=== PATIENT | female | born 1980 | race African-American/Black ===

== ENCOUNTER 2023-05-06 10:02 | Outpatient (OUT) | payer MEDICARE, MEDICAID, SELFPAY ==
--- NOTE | 2023-05-06 10:42 | P.CN_ITS ---
Consult Note: HPI Data of Consult Patient: known to practice within the last 3 years Consult date: 05/06/23 Requesting Physician: KATELYNN DALE NP Primary Care Provider: [facility] Consult Narrative Reason for consult: ankle pain Narrative: She is here for f/u of chronic left ankle pain. She has had lumbar nerve blocks in the past with no relief she states. No new injury to ankle. She has a prior hx of fusion with wounds that did not heal well. She has surgical scarring of left ankle with no open karolina or drainage. Pain unchanged and is managed well on current medication regimen with no SE. Medications help her to be able to perform ADLs.We did discuss cymbalta as option if needed. She would like to research it. No new sensorimotor sx. She did have fall 2 weeks ago and was seen by physician and had x-rays to left wrist. She wears wrist brace. She is aware to f/u with ortho if wrist no better in several weeks. cc:: CC: KATELYNN DALE NP Review of Systems ROS0 Status of ROS 10 or more systems reviewed and unremarkable except as noted in history and below Musculoskeletal Reports: extremity pain Meds Home Medications and Allergies Home Medications Medication Instructions Recorded Confirmed Type ascorbic acid (vitamin C) 500 mg 500 mg PO BID 05/06/23 05/06/23 History tablet aspirin 325 mg tablet 325 mg PO DAILY 05/06/23 05/06/23 History ferrous sulfate 325 mg (65 mg 325 mg PO DAILY 05/06/23 05/06/23 History iron) tablet gabapentin 100 mg capsule 200 mg PO .every evening 05/06/23 05/06/23 History gabapentin 300 mg capsule 300 mg PO BID 05/06/23 05/06/23 History hydroxyzine pamoate 25 mg capsule 25 mg PO TID 05/06/23 05/06/23 History lidocaine 5 % topical kit 1 applic topical DAILY 05/06/23 05/06/23 History oxycodone-acetaminophen 5 mg-325 1 tab PO Q6H 05/06/23 05/06/23 History mg tablet (Percocet) promethazine 25 mg tablet 25 mg PO Q12H PRN nausea and 05/06/23 05/06/23 History vomiting pyridoxine (vitamin B6) 100 mg 100 mg PO BID 05/06/23 05/06/23 History tablet vitamin B complex (B 1 tab PO DAILY 05/06/23 05/06/23 History Complex-Vitamin B12 tablet) zinc sulfate 50 mg zinc (220 mg) 50 mg PO DAILY 05/06/23 05/06/23 History capsule Allergies Allergy/AdvReac Type Severity Reaction Status Date / Time naproxen [From Naprosyn] Allergy Mild Hives Verified 05/06/23 10:47 ondansetron [From Zofran] AdvReac Intermediate edema Verified 05/06/23 10:47 cyclobenzaprine AdvReac Mild Vomiting Verified 05/06/23 10:47 [From Flexeril] Exam Constitutional Documenting provider has reviewed patient's vital signs: yes Common normals: no apparent distress, oriented x3, healthy appearing, alert and well nourished Orientation/consciousness: Yes awake, Yes oriented to person, Yes oriented to place and Yes oriented to time HENMT Common normals: normocephalic, external ears normal, nasal mucous membranes and turbinates normal and moist oral mucous membranes Respiratory Common normals: normal respiratory effort, no retractions and no use of accessory muscles Effort & inspection: able to speak in complete sentences and symmetric chest movement Extremity Common normals: normal capillary refill and no pedal edema Left lower extremity: ankle joint (limited ROM with hyperesthias and sensitivity. ) Assessment and Plan Assessment and Plan (1) CRPS (complex regional pain syndrome): (2) Ankle pain, left: Plan refill lidocaine patch narcan rx consider cymbalta
== END 2023-05-06 10:03 ==
PROVIDERS: Visit Provider Nurse Practitioner
DX: M25.572 Pain in left ankle and joints of left foot (principal); G90.522 Complex regional pain syndrome I of left lower limb
CPT/HCPCS: G0463

== ENCOUNTER 2023-07-20 15:35 | Outpatient (OUT) | payer MEDICARE, MEDICAID, SELFPAY ==
--- NOTE | 2023-07-20 | XR_ITS ---
The [address] [address] Patient Name: PEREZ BABB MRN: [id number] date: 1980 Sex: F Assigned Patient Location: [facility] Current Patient Location: Accession/Order Number: [id number] Exam Date: 07/20/2023 15:55 Report Date: 07/21/2023 09:41 At the request of: PEGGY EDWARDS Procedure: XR ankle LT min 3V PROCEDURE: XR ankle LT min 3V HISTORY: LEFT ANKLE PAIN COMPARISON: XR ankle left 09/16/2021 FINDINGS: BONES:Mechanical fusion of the ankle joint and hindfoot via intramedullary jez and locking screws; no appreciable hardware fracture or loosening. Prior resection of distal fibula. SOFT TISSUES:Mild soft tissue swelling surrounding the ankle. EFFUSION:None visible. OTHER: Negative. XR/XR ankle LT min 3V IMPRESSION: 1. Stable surgical changes without evidence of hardware failure or change in alignment. 2. No acute bone abnormality. Electronically authenticated by: JO ANDERSON Date: 07/21/2023 09:41
--- NOTE | 2023-07-20 | XR_ITS ---
The [address] [address] Patient Name: PEREZ BABB MRN: [id number] date: 1980 Sex: F Assigned Patient Location: [facility] Current Patient Location: [facility] Accession/Order Number: [id number] Exam Date: 07/20/2023 15:55 Report Date: 07/21/2023 09:45 At the request of: PEGGY EDWARDS Procedure: XR foot KATLYN min 3V EXAMINATION: XR foot KATLYN min 3V HISTORY: BILATERAL FOOT PAIN COMPARISON: No relevant comparison available. FINDINGS: RIGHT FINDINGS: BONES: Moderate degenerative changes the midfoot predominantly involving the tarsal-metatarsal joints. Large calcaneal degenerative enthesophytes. SOFT TISSUES: Calcium deposition within the plantar aponeurosis, likely sequela of inflammatory changes versus remote injury. OTHER: Negative. LEFT FINDINGS: BONES: Mechanical fusion ankle joint and hindfoot via intramedullary jez. Moderate degenerative changes of the tarsal metatarsal joints. SOFT TISSUES: Mild soft tissue swelling surrounding the ankle and proximal foot. OTHER: Negative. XR/XR foot KATLYN min 3V IMPRESSION: RIGHT CONCLUSION: Moderate degenerative changes as detailed above. No acute abnormality. LEFT CONCLUSION: Stable surgical changes without evidence of hardware failure or change in alignment. Moderate degenerative changes. Electronically authenticated by: JO ANDERSON Date: 07/21/2023 09:45
== END 2023-07-20 15:36 | disposition home or self-care (01) ==
LOC: RAD 15:35
PROVIDERS: Visit Provider Podiatrist Foot & Ankle Surgery
DX: M79.672 Pain in left foot (principal); M79.671 Pain in right foot
CPT/HCPCS: 73610; 73630

== ENCOUNTER 2023-08-04 10:33 | Outpatient (OUT) | payer MEDICARE, MEDICAID, SELFPAY ==
--- NOTE | 2023-08-04 10:49 | P.CN_ITS ---
Consult Note: HPI Data of Consult Patient: known to practice within the last 3 years Requesting Physician: KATELYNN DALE NP Primary Care Provider: [facility] Consult Narrative Reason for consult: f/u Narrative: Loy Tam a pleasant 42 year old female presents for evaluation of chronic left foot pain, today 7-8/10 pain. Continues to follow with Dr Garcia for chronic left foot post surgical complications. Doing well on current medication regimen. cc:: CC: KATELYNN DALE NP Review of Systems ROS Status of ROS 10 or more systems reviewed and unremarkable except as noted in history and below Musculoskeletal Reports: extremity pain (left foot) Meds Home Medications and Allergies Home Medications Medication Instructions Recorded Confirmed Type ascorbic acid (vitamin C) 500 mg 500 mg PO BID 05/06/23 05/06/23 History tablet aspirin 325 mg tablet 325 mg PO DAILY 05/06/23 05/06/23 History ferrous sulfate 325 mg (65 mg 325 mg PO DAILY 05/06/23 05/06/23 History iron) tablet gabapentin 100 mg capsule 200 mg PO .every evening 05/06/23 05/06/23 History gabapentin 300 mg capsule 300 mg PO BID 05/06/23 05/06/23 History hydroxyzine pamoate 25 mg capsule 25 mg PO TID 05/06/23 05/06/23 History lidocaine 5 % topical kit 1 applic topical DAILY 05/06/23 05/06/23 History oxycodone-acetaminophen 5 mg-325 1 tab PO Q6H 05/06/23 05/06/23 History mg tablet (Percocet) promethazine 25 mg tablet 25 mg PO Q12H PRN nausea and 05/06/23 05/06/23 History vomiting pyridoxine (vitamin B6) 100 mg 100 mg PO BID 05/06/23 05/06/23 History tablet vitamin B complex (B 1 tab PO DAILY 05/06/23 05/06/23 History Complex-Vitamin B12 tablet) zinc sulfate 50 mg zinc (220 mg) 50 mg PO DAILY 05/06/23 05/06/23 History capsule Allergies Allergy/AdvReac Type Severity Reaction Status Date / Time naproxen [From Naprosyn] Allergy Mild Hives Verified 05/06/23 10:47 ondansetron [From Zofran] AdvReac Intermediate edema Verified 05/06/23 10:47 cyclobenzaprine AdvReac Mild Vomiting Verified 05/06/23 10:47 [From Flexeril] Exam Constitutional Documenting provider has reviewed patient's vital signs: yes Common normals: no apparent distress, oriented x3, healthy appearing, alert and well nourished General appearance: cooperative Orientation/consciousness: Yes awake, Yes oriented to person, Yes oriented to place and Yes oriented to time HENMT Common normals: normocephalic, hearing grossly normal bilaterally and moist oral mucous membranes Head and scalp: normocephalic Eye Common normals: PERRL Pupil: PERRL Neck & C-Spine Common normals: full ROM General: normal visual inspection Chest Common normals: inspection of chest normal Respiratory Common normals: normal respiratory effort, no retractions and no use of accessory muscles Effort & inspection: able to speak in complete sentences and symmetric chest movement Extremity Common normals: normal capillary refill and no pedal edema Left lower extremity: ankle joint (limited ROM with hyperesthias and sensitivity. ) Neuro Common normals: oriented x3, CN's II-XII intact bilaterally, moves all extremities, no focal motor deficits, no sensory deficits noted and deep tendon reflexes 2+ bilaterally Sensorium/orientation: alert Motor exam: no movement abnormalities noted and strength abnormal (4/5 LLE) Psych Common normals: mental status grossly normal, thought process normal, cooperative, affect normal, speech normal and activity/motor behavior normal Speech: normal speech Thought process: normal thought process Results Additional Findings Additional findings: I have checked an [place]AR[place] report on this patient today and there are no aberrancies noted in the prescribing history.?? A drug screen was completed and reviewed within the last year, and if there has not been a drug screen completed we ordered one today to monitor higher risk, state monitored pain medication use. As part of providing excellent, safe, comprehensive care, the following was com pleted at our patient's visit: 1. A medication reconciliation and review to ensure accurate knowledge of current/active medications, including asking our patients to inform us about any [id number] medications or herbal remedies/nutritional supplements/alternative remedies. 2. A review to specifically ensure our patients have had annual screening for: elevated body mass index (BMI), tobacco use, screening for depression, and screening for unhealthy alcohol use. When screening is concerning, patients are provided with education and the specific recommendation to discuss the concerning health issue and treatment options with their primary care provider. Assessment and Plan Assessment and Plan (1) Ankle pain, left: (2) CRPS (complex regional pain syndrome): (3) Chronic, continuous use of opioids: Assessment and Plan: I have refilled the patient's opioid prescriptions at the above noted dose and schedule.? I feel these medications are improving the patient's quality of life and allow them to tolerate activities of daily living as well as participate in recreational activity.? The patient does not report intolerable side effects. The patient is NOT opioid naive and non-pharmacologic and non-opioid treatment has failed to significantly relieve the patient's pain and improve functionality. The patient has a diagnosis that is related to a somatic or visceral pain etiology. ? ?? I reviewed with the patient the potential risks and side effects with the use of? opioid medications including but not limited to respiratory depression,? sedation, and even . I verified the patient has access to naloxone should? these effects occur. I advised the patient to avoid the use of any other? sedation substances including alcohol, THC, and benzodiazepines while? taking opioid medications due to the risk of compounding side effects and? detrimental outcomes. I reviewed the PSYCHOLOGIST RESEARCH ASSISTANT, pain treatment agreement, urine? drug screen, and opioid start talking forms. The patient was advised to let? their family know they had Naloxone in case they would need to administer? the medication.? ?? A drug screen was completed within the last year, and no aberrancies were noted regarding their use of controlled substances. The patient understands they are subject to the terms and conditions of the pain contract that they have signed. ? ?? I have checked an OARRS report on this patient today and there are no aberrancies noted in the prescribing history.? Plan continue current medication regimen, tolerating well without side effects continue follow up care with director of religious life Dr Garcia f/u 3 months
== END 2023-08-04 10:34 | disposition home or self-care (01) ==
LOC: PM 10:33
PROVIDERS: Visit Provider Nurse Practitioner
DX: M25.572 Pain in left ankle and joints of left foot (principal); Z79.891 Long term (current) use of opiate analgesic
CPT/HCPCS: G0463

== ENCOUNTER 2023-10-26 14:39 | Outpatient (OUT) | payer MEDICARE, MEDICAID, SELFPAY ==
--- NOTE | 2023-10-26 | XR_ITS ---
[address] [address] Patient Name: PEREZ BABB MRN: [id number] date: 1980 Sex: F Assigned Patient Location: [facility] Current Patient Location: Accession/Order Number: [id number] Exam Date: 10/26/2023 14:44 Report Date: 10/28/2023 10:55 At the request of: PEGGY EDWARDS Procedure: XR ankle LT min 3V PROCEDURE: XR ankle LT min 3V, XR foot LT min 3V HISTORY: LEFT ANKLE PAIN COMPARISON: XR ankle left and bilateral feet 07/20/2023 FINDINGS: BONES:Prior ankle and hindfoot fusion via intramedullary jez and locking screws. Moderate degenerative changes the midfoot. Prior resection of distal fibula. Large calcaneal plantar spur. Moderate degenerative changes of the midfoot. SOFT TISSUES:No visible soft tissue swelling. EFFUSION:None visible. OTHER: Negative. XR/XR ankle LT min 3V IMPRESSION: 1. Stable surgical changes without evidence of hardware failure or change in alignment. 2. Stable chronic degenerative changes. Electronically authenticated by: JO ANDERSNO Date: 10/28/2023 10:55
--- NOTE | 2023-10-26 | XR_ITS ---
[address] [address] Patient Name: PEREZ BABB MRN: [id number] date: 1980 Sex: F Assigned Patient Location: [facility] Current Patient Location: Accession/Order Number: [id number] Exam Date: 10/26/2023 14:44 Report Date: 10/28/2023 10:55 At the request of: PEGGY EDWARDS Procedure: XR foot LT min 3V PROCEDURE: XR ankle LT min 3V, XR foot LT min 3V HISTORY: LEFT ANKLE PAIN COMPARISON: XR ankle left and bilateral feet 07/20/2023 FINDINGS: BONES:Prior ankle and hindfoot fusion via intramedullary jez and locking screws. Moderate degenerative changes the midfoot. Prior resection of distal fibula. Large calcaneal plantar spur. Moderate degenerative changes of the midfoot. SOFT TISSUES:No visible soft tissue swelling. EFFUSION:None visible. OTHER: Negative. XR/XR foot LT min 3V IMPRESSION: 1. Stable surgical changes without evidence of hardware failure or change in alignment. 2. Stable chronic degenerative changes. Electronically authenticated by: JO ANDERSON Date: 10/28/2023 10:55
== END 2023-10-26 14:40 | disposition home or self-care (01) ==
LOC: RAD 14:43
PROVIDERS: Visit Provider Podiatrist Foot & Ankle Surgery
DX: M25.572 Pain in left ankle and joints of left foot (principal)
CPT/HCPCS: 73610; 73630

== ENCOUNTER 2023-11-09 12:51 | Outpatient (OUT) | payer MEDICARE, MEDICAID, SELFPAY ==
--- NOTE | 2023-11-09 13:31 | PM.CN ---
Consult Note: HPI Data of Consult Patient: known to practice within the last 3 years Requesting Physician: Shonda Jeffery NP Primary Care Provider: [facility] Consult Narrative Reason for consult: f/u Narrative: Loy Tam a pleasant 42 year old female presents for evaluation of chronic left foot pain, today 8/10 pain. Continues to follow with Dr Garcia for chronic left foot post surgical complications. Would like to discuss an adjustment in her medications as her pain is not as well controlled as before. She utilizes her medications to take care of self, her children, and work and is noticing she is not able to do these things as well with the pain medication only helping around 4 hours at a time cc:: CC: Shonda Jeffery NP Meds Home Medications and Allergies Home Medications Medication Instructions Recorded Confirmed Type ascorbic acid (vitamin C) 500 mg 500 mg PO BID 05/06/23 05/06/23 History tablet aspirin 325 mg tablet 325 mg PO DAILY 05/06/23 05/06/23 History ferrous sulfate 325 mg (65 mg 325 mg PO DAILY 05/06/23 05/06/23 History iron) tablet gabapentin 100 mg capsule 200 mg PO .every evening 05/06/23 05/06/23 History gabapentin 300 mg capsule 300 mg PO BID 05/06/23 05/06/23 History hydroxyzine pamoate 25 mg capsule 25 mg PO TID 05/06/23 05/06/23 History lidocaine 5 % topical kit 1 applic topical DAILY 05/06/23 05/06/23 History oxycodone-acetaminophen 5 mg-325 1 tab PO Q6H 05/06/23 05/06/23 History mg tablet (Percocet) promethazine 25 mg tablet 25 mg PO Q12H PRN nausea and 05/06/23 05/06/23 History vomiting pyridoxine (vitamin B6) 100 mg 100 mg PO BID 05/06/23 05/06/23 History tablet vitamin B complex (B 1 tab PO DAILY 05/06/23 05/06/23 History Complex-Vitamin B12 tablet) zinc sulfate 50 mg zinc (220 mg) 50 mg PO DAILY 05/06/23 05/06/23 History capsule oxycodone-acetaminophen 5 mg-325 1 tab PO TID PRN pain #90 tabs 08/25/23 Rx mg tablet (Percocet) oxycodone-acetaminophen 5 mg-325 1 tab PO TID PRN pain #90 tabs 09/26/23 Rx mg tablet (Percocet) oxycodone-acetaminophen 5 mg-325 1 tab PO TID PRN pain #90 tabs 10/27/23 Rx mg tablet (Percocet) Allergies Allergy/AdvReac Type Severity Reaction Status Date / Time naproxen [From Naprosyn] Allergy Mild Hives Verified 05/06/23 10:47 ondansetron [From Zofran] AdvReac Intermediate edema Verified 05/06/23 10:47 cyclobenzaprine AdvReac Mild Vomiting Verified 05/06/23 10:47 [From Flexeril] Exam Constitutional Documenting provider has reviewed patient's vital signs: yes Common normals: no apparent distress, oriented x3, healthy appearing, alert and well nourished General appearance: cooperative Orientation/consciousness: Yes awake, Yes oriented to person, Yes oriented to place and Yes oriented to time HENMT Common normals: normocephalic, hearing grossly normal bilaterally and moist oral mucous membranes Head and scalp: normocephalic Eye Common normals: PERRL Pupil: PERRL Neck & C-Spine Common normals: full ROM General: normal visual inspection Chest Common normals: inspection of chest normal Respiratory Common normals: normal respiratory effort, no retractions and no use of accessory muscles Effort & inspection: able to speak in complete sentences and symmetric chest movement Extremity Common normals: normal capillary refill and no pedal edema Left lower extremity: ankle joint (limited ROM with hyperesthias and sensitivity. ) Neuro Common normals: oriented x3, CN's II-XII intact bilaterally, moves all extremities, no focal motor deficits, no sensory deficits noted and deep tendon reflexes 2+ bilaterally Sensorium/orientation: alert Motor exam: no movement abnormalities noted and strength abnormal (4/5 LLE) Psych Common normals: mental status grossly normal, thought process normal, cooperative, affect normal, speech normal and activity/motor behavior normal Speech: normal speech Thought process: normal thought process Assessment and Plan Assessment and Plan (1) Chronic, continuous use of opioids: Assessment and Plan: I feel these medications are improving the patient's quality of life and allow them to tolerate activities of daily living as well as participate in recreational activity.? The patient does not report intolerable side effects. The patient is NOT opioid naive and non-pharmacologic and non-opioid treatment has failed to significantly relieve the patient's pain and improve functionality. The patient has a diagnosis that is related to a somatic or visceral pain etiology. ? ?? I reviewed with the patient the potential risks and side effects with the use of? opioid medications including but not limited to respiratory depression,? sedation, and even . I verified the patient has access to naloxone should? these effects occur. I advised the patient to avoid the use of any other? sedation substances including alcohol, THC, and benzodiazepines while? taking opioid medications due to the risk of compounding side effects and? detrimental outcomes. I reviewed the [employer], pain treatment agreement, urine? drug screen, and opioid start talking forms. The patient was advised to let? their family know they had Naloxone in case they would need to administer? the medication.? ?? A drug screen was completed within the last year, and no aberrancies were noted regarding their use of controlled substances. The patient understands they are subject to the terms and conditions of the pain contract that they have signed. ? ?? I have checked an [place] report on this patient today and there are no aberrancies noted in the prescribing history.? (2) Ankle pain, left: Qualifiers: Chronicity: chronic Qualified Code(s): M25.572 - Pain in left ankle and joints of left foot; G89.29 - Other chronic pain (3) CRPS (complex regional pain syndrome): Qualifiers: Complex regional pain syndrome affected site: lower extremity Laterality: left Plan increase percocet to 5/325 QID prn as discussed today, to take TID-QID when able continue f/u with podiatry, they are planning a left ankle MRI and additional surgery continue gabapentin 300mg BID and 200mg HS f/u [address] Dixon to get his input on any future injections or nerve stimulators
== END 2023-11-09 12:52 | disposition home or self-care (01) ==
LOC: PM 13:03
PROVIDERS: Visit Provider Nurse Practitioner
DX: Z79.891 Long term (current) use of opiate analgesic (principal); M25.572 Pain in left ankle and joints of left foot; G89.4 Chronic pain syndrome; G90.522 Complex regional pain syndrome I of left lower limb
CPT/HCPCS: G0463

== ENCOUNTER 2023-11-16 12:46 | Outpatient (OUT) | payer MEDICARE, MEDICAID, SELFPAY ==
--- NOTE | 2023-11-16 | CT_ITS ---
The [address] [address] Patient Name: PEREZ BABB MRN: [id number] date: 1980 Sex: F Assigned Patient Location: CT Current Patient Location: CT Accession/Order Number: [id number] Exam Date: 11/16/2023 13:00 Report Date: 11/17/2023 12:31 At the request of: EPGGY EDWARDS Procedure: CT foot LT wo con CT foot LT wo con: 11/16/2023 1:00 PM EST HISTORY: Left foot pain since a fall 2 months ago. Prior surgeries on the foot. COMPARISON: Radiographs left foot 10/26/2023. TECHNIQUE: Multiple contiguous axial CT images of the left ankle and foot were obtained without contrast. Sagittal and coronal reformatted images were made. Dose reduction techniques were achieved by using automated exposure control and/or adjustment of mA and/or kV according to patient size and/or use of iterative reconstruction technique. FINDINGS: There are postsurgical changes again seen from prior resection of the distal fibula at the level of the distal fibular diaphysis. There are postsurgical changes from remote arthrodesis surgery of the tibiotalar joint and posterior subtalar joint with an intramedullary nail again seen extending across these joints and an interlocking screw within the calcaneus. The visualized hardware appears intact. There is complete osseous fusion of the tibiotalar joint and posterior subtalar joint. There appears to be a probable remote healed osteotomy of the posterior calcaneus. There is a large plantar calcaneal enthesophyte. The Achilles tendon is not visualized. There are moderate degenerative changes of the talonavicular joint and moderate degenerative changes at the articulation of the navicular with the cuneiform bones. There are severe degenerative changes of the second tarsometatarsal joint with partial osseous fusion across this joint. There are moderate to severe degenerative changes of the third tarsometatarsal joint and mild degenerative changes of the fourth tarsometatarsal joint. There is a hallux valgus deformity with a small bunion complex along the medial aspect of the first metatarsal head. There are mild degenerative changes of the first MTP joint and severe degenerative changes of the first metatarsal-sesamoid joints. There are moderate degenerative changes of the interphalangeal joint of the first toe. There are moderate to severe degenerative changes of the calcaneocuboid joint. No acute fracture or dislocation is seen. There appears to be soft tissue swelling along the lateral aspect of the ankle. CT/CT foot LT wo con IMPRESSION: 1. No acute fracture or dislocation is seen. 2. There are degenerative changes involving multiple joints as described above. 3. Remote arthrodesis surgery of the tibiotalar joint and posterior subtalar joint with complete osseous fusion across these joints. 4. The Achilles tendon is not clearly visualized and this is probably secondary to either the sequela of a remote rupture or prior resection of the tendon. Electronically authenticated by: LORI THOMAS Date: 11/17/2023 12:31
== END 2023-11-16 12:47 | disposition home or self-care (01) ==
LOC: CT 12:46
PROVIDERS: Visit Provider Podiatrist Foot & Ankle Surgery
DX: M19.072 Primary osteoarthritis, left ankle and foot (principal)
CPT/HCPCS: 73700

== ENCOUNTER 2024-02-06 12:41 | Outpatient (OUT) | payer MEDICARE, MEDICAID, SELFPAY ==
--- OUTSIDE RECORDS SUMMARY | 2024-02-06 12:45 | XMS_ITS | CCD ---
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 Translations: [Carpal tunnel syndrome, bilateral upper limbs] Chronic Other nervous system disorders (3 sources) Carpal tunnel syndrome of left wrist; Translations: [Carpal tunnel syndrome, left upper limb] Chronic Other nervous system disorders (5 sources) Chronic pain syndrome; Translations: [CHRONIC PAIN SYNDROME] Onset: 11-04-2022 Chronic Other nervous system disorders (4 sources) Complex regional pain syndrome I of left upper limb; Translations: [COMPLEX RGN PAIN SYND I LT UP LIMB] Onset: 07-08-2022 Chronic Other nervous system disorders (4 sources) Complex regional pain syndrome I of left lower limb; Translations: [COMPLEX RGN PAIN SYND I LT LOW LIMB] Onset: 04-15-2022 Chronic Other nervous system disorders (4 sources) Causalgia of left lower limb; Translations: [CAUSALGIA OF LEFT LOWER LIMB] Onset: 03-30-2022 Chronic Other nervous system disorders (2 sources) Carpal tunnel syndrome of right wrist; Translations: [Carpal tunnel syndrome, right upper limb] Chronic Other nervous system disorders (2 sources) Carpal tunnel syndrome, right upper limb Chronic Other non-traumatic joint disorders (20 sources) Pain in wrist; Translations: [Pain in left wrist] 11-18-2017 Episodic Other non-traumatic joint disorders (1 source) Knee pain; Translations: [Chronic knee pain after total replacement of left knee joint] Episodic Other non-traumatic joint disorders (14 sources) Pain in right knee; Translations: [Right knee pain] Onset: 07-13-2022 Resolved: 07-13-2022 Episodic Other non-traumatic joint disorders (13 sources) Pain in left knee; Translations: [Left knee pain] 10-02-2019 Episodic Other non-traumatic joint disorders (1 source) Pain in left ankle and joints of left foot; Translations: [PAIN IN LEFT ANKLE] Onset: 02-18-2023 Episodic Other non-traumatic joint disorders (2 sources) Pain in left wrist Episodic Other non-traumatic joint disorders (5 sources) Joint pain; Translations: [Pain in unspecified joint] 07-01-2023 Episodic Other upper respiratory infections (9 sources) Sinusitis; Translations: [Chronic sinusitis, unspecified] 01-08-2023 Chronic Phlebitis; thrombophlebitis and thromboembolism (14 sources) Deep venous thrombosis; Translations: [Acute embolism and thrombosis of unspecified deep veins of unspecified lower extremity] 11-26-2019 Episodic Residual codes; unclassified (1 source) H/O: section; Translations: [Status post primary low transverse section] Episodic Residual codes; unclassified (13 sources) Patient encounter status; Translations: [Procedure and treatment not carried out due to patient leaving prior to being seen by health care provider] 03-09-2022 Episodic Spondylosis; intervertebral disc disorders; other back problems (1 source) Muscle spasm of back; Translations: [MUSCLE SPASM OF BACK] Onset: 02-18-2023 Episodic Unclassified (11 sources) Nail bed finding; Translations: [Nail bed injury] 09-18-2022 Unclassified (3 sources) LOW BACK PAIN, UNSPECIFIED; Translations: [LOW BACK PAIN, UNSPECIFIED] Onset: 02-18-2023 Unclassified (1 source) Encounter for screening mammogram for malignant neoplasm of breast; Translations: [Encounter for screening mammogram for malignant neoplasm of breast] Onset: 12-02-2023 Unclassified (1 source) Pain in left wrist; Translations: [Pain in left wrist] Onset: 06-14-2023 Unclassified (1 source) Other specified injuries of left wrist, hand and finger(s), initial encounter; Translations: [Other specified injuries of left wrist, hand and finger(s), initial encounter] Onset: 04-18-2023 Unclassified (1 source) Cough, unspecified; Translations: [Cough, unspecified] Onset: 01-04-2023 Viral infection (20 sources) Viral disease; Translations: [Disease caused by 2019-nCoV] 10-30-2021 Episodic Past or Other Problems Problem Classification Problem Date Documented Da te Episodic/Chronic Nonspecific chest pain (14 sources) Chest pain; Translations: [Chest pain, unspecified] Onset: 05-31-2023 05-31-2023 Episodic Other connective tissue disease (1 source) Other bursal cyst, left wrist Onset: 07-13-2022 Resolved: 07-13-2022 Episodic Other connective tissue disease (1 source) Pain in left lower limb; Translations: [Pain in left leg] Onset: 07-01-2023 Episodic Other ear and sense organ disorders (1 source) Otalgia, bilateral; Translations: [Otalgia, bilateral] Onset: 01-19-2023 Episodic Other non-traumatic joint disorders (1 source) Pain in left shoulder; Translations: [Pain in left shoulder] Onset: 06-18-2023 Episodic Other upper respiratory infections (20 sources) Upper respiratory infection; Translations: [Acute upper respiratory infection, unspecified] Onset: 01-08-2023 11-10-2019 Episodic Sprains and strains (20 sources) Sprain of knee; Translations: [Sprain of ankle] Onset: 06-18-2023 05-30-2019 Episodic Syncope (7 sources) Syncope; Translations: [Syncope and collapse] Onset: 06-18-2023 06-19-2023 Episodic Unclassified (1 source) LOW BACK PAIN, UNSPECIFIED; Translations: [LOW BACK PAIN, UNSPECIFIED] Onset: 02-10-2023 Results Test Name Value Interpretation Reference Range Facility MM screening mammo BI w/CADo n 12-02-2023 MM screening mammo BI w/CAD [facility] [place] [address] Mammography Report Signed Patient: Loy Tam MR#: [id number] : 1980 Acct:[id number] Age/Sex: 42 / F ADM Date: 12/02/23 Loc: [place] Room: Type: [facility] Attending Dr: Referral Self Copies to: [facility] SELF,REFERRAL Ordering Provider: SELF,REFERRAL Date of Service: 12/02/23 MM/MM screening mammo BI w/CAD: SCREENING CLINICAL DATA: Screening for malignancy. BILATERAL SCREENING MAMMOGRAMS - FULL FIELD DIGITAL WITH TOMOSYNTHESIS AND CAD Tomosynthesis craniocaudal and mediolateral oblique views of both breasts were obtained using low- dose digital technique. Comparison is made to prior studies from November 14, 2019 and November 17, 2020. This examination was reviewed with the aid of CAD. There are minor residual scattered fibroglandular densities. A left intramammary lymph node is again seen. There is an enlarging 5 mm nodular asymmetry at the central, slightly lateral right breast approximately 6 cm from the nipple. There is also a developing 7 - 8 mm nodular asymmetry at the inferior lateral left breast approximately 6 cm from the nipple. There are no typically malignant calcifications or architectural distortion. MM/MM screening mammo BI w/CAD IMPRESSION: BILATERAL NODULAR ASYMMETRIES. FOLLOW-UP ULTRASOUND IS SUGGESTED. RESULT CODE: 0 Incomplete: Needs Additional Imaging Evaluation DENSITY CODE: 1 (<25% glandular) FOLLOW UP: ADD The false-negative rate of mammography is approximately 10-percent. Management of a palpable abnormality must be based on clinical grounds. Patient was entered into a reminder system with a target due date for the next mammogram. Impression dictated by: Sarah Mistry M.D.12/02/2023 3:31 PM Dictation Location: [facility] Transcribed By: ILIA 12/02/23 1531 Dictated By: Sarah Mistry MD 12/02/23 1523 Signed By: 12/02/23 1531 Normal [facility] FE PROon 10-07-2023 % Iron Saturation 12.3 % Low 20-50 [facility] Comment on above: Performed By: #### T SH3, FE PRO #### [facility] [address] [place] [address] [place] Ferritin [Mass/Vol] 23.1 ng/mL Normal 11.0-306.8 [facility] Comment on above: Performed By: #### T SH3, FE PRO #### [place] [id number] [facility] Iron [Mass/Vol] 48 ug/dL Low 50-212 [facility] Comment on above: Performed By: #### T SH3, FE PRO #### [address] [address] [place] Total Iron Binding Capacity 389 ug/dL Normal 255-450 [facility] Comment on above: Performed By: #### T SH3, FE PRO #### [facility] [address] Transferrin [Mass/Vol] 278 mg/dL Normal 203-[address] [facility] Comment on above: Performed By: #### T SH3, FE PRO #### [facility] [address] [place] [address] Ferritin [Mass/volume] in Se rum or PlasmaOrdered By: Teo Heath on 10-07-2023 Ferritin [Mass/Vol] 23.1 ng/mL 11.0-306.8 [facility] Iron [Mass/volume] in Serum or PlasmaOrdered By: Teo Heath on 10-07-2023 Iron [Mass/Vol] 48 ug/dL 50-212 [facility] Iron binding capacity [Mass/ volume] in Serum or PlasmaOrdered By: Teo Heath on 10-07-2023 Iron binding capacity [Mass/Vol] 389 ug/dL 255-450 [facility] Iron saturation [Mass Fracti on] in Serum or PlasmaOrdered By: Teo Heath on 10-07-2023 Iron saturation [Mass fraction] 12.3 % 20-50 [facility] Thyroid Stimulating Hormoneo n 10-07-2023 TSH Qn 0.91 m[IU]/L Normal 0.45-5.33 [facility] Comment on above: Result Comment: PERF ORMED BY: [place] [address] PATHOLOGIST [employer]OLES[employer] MARTY SALGADO M.D. Performed By: #### B MP, HS TROP, CBC #### [facility] [address] [place] [address] [place] Thyrotropin [Units/volume] i n Serum or PlasmaOrdered By: Teo Heath on 10-07-2023 TSH Qn 0.91 m[IU]/L 0.45-5.33 [facility] Transferrin [Mass/volume] in Serum or PlasmaOrdered By: Teo Heath on 11-10-2023 Transferrin [Mass/Vol] 278 mg/dL 203-[address] [facility] Alanine aminotransferase [En zymatic activity/volume] in Serum or PlasmaOrdered By: Marquise Disla on 07-13-2023 ALT [Catalytic activity/Vol] 25 U/L 7-52 [facility] Albumin [Mass/volume] in Ser um or Plasma by Bromocresol green (BCG) dye binding methoOrdered By: Marquise Disla on 07-13-2023 Albumin BCG dye [Mass/Vol] 4.2 g/dL 3.5-5.7 [facility] Alkaline phosphatase [Enzyma tic activity/volume] in Serum or PlasmaOrdered By: Marquise Disla on 07-13-2023 ALP [Catalytic activity/Vol] 113 U/L 34-104 [facility] Aspartate aminotransferase [ Enzymatic activity/volume] in Serum or PlasmaOrdered By: Marquise Disla on 07-13-2023 AST [Catalytic activity/Vol] 13 U/L 13-39 [facility] Basophils Auto (Bld) [#/Vol] Ordered By: Marquise Disla on 07-13-2023 Basophils (Bld) [#/Vol] 0.1 10*3/uL 0.0-0.2 [facility] Basophils/100 WBC Auto (Bld) Ordered By: Marquise Disla on 07-13-2023 Basophils/100 WBC (Bld) 1.2 % . [facility] Bilirubin.total [Mass/volume ] in Serum or PlasmaOrdered By: Marquise Disla on 07-13-2023 Bilirubin [Mass/Vol] 0.6 mg/dL 0.3-1.0 [facility] Calcium [Mass/volume] in Ser um or PlasmaOrdered By: Marquise Disla on 07-13-2023 Calcium [Mass/Vol] 9.6 mg/dL 8.6-10.3 [facility] Carbon dioxide, total [Moles /volume] in Serum or PlasmaOrdered By: Marquise Disla on 07-13-2023 CO2 [Moles/Vol] 27.9 mmol/L 21.0-31.0 [facility] Chloride [Moles/volume] in S brian or PlasmaOrdered By: Marquise Disla on 07-13-2023 Chloride [Moles/Vol] 106 mmol/L 98-107 [facility] Cholesterol [Mass/volume] in Serum or PlasmaOrdered By: Marquise Disla on 07-13-2023 Cholesterol [Mass/Vol] 208 mg/dL 140-[address] [facility] Comment on above: Chol less than 200 m g/dl low riskChol 201-239 mg/dl borderline riskChol 240 mg/dl and greater high risk Cholesterol in LDL Calc [Mas s/Vol]Ordered By: Marquise Disla on 07-13-2023 Cholesterol in LDL [Mass/Vol] 150 mg/dL 0-100 [facility] Comment on above: LDL ATP III CLASSIFI CATIONLDL less than 100 mg/dL OptimalLDL 100-129 mg/dL Near or above optimalLDL 130-159 mg/dL Borderline highLDL 160-189 mg/dL HighLDL greater than 189 mg/dL Very high Cholesterol in LDL [Mass/vol ume] in Serum or PlasmaOrdered By: Marquise Disla on 07-13-2023 Cholesterol in LDL [Mass/Vol] 171 mg/dL 0-100 [facility] Comment on above: LDL ATP III CLASSIFI CATIONLDL less than 100 mg/dL OptimalLDL 100-129 mg/dL Near or above optimalLDL 130-159 mg/dL Borderline highLDL 160-189 mg/dL HighLDL greater than 189 mg/dL Very high Cholesterol in VLDL Calc [Ma ss/Vol]Ordered By: Marquise Disla on 07-13-2023 Cholesterol in VLDL [Mass/Vol] 17 mg/dL [facility] Complete Blood Count Auto Di ffon 07-13-2023 Basophils (Bld) [#/Vol] 0.1 10*3/uL Normal 0.0-0.2 [facility] Comment on above: Result Comment: PERF ORMED BY: [facility] [address] [place] [address] PATHOLOGIST [employer]OL[employer]ER MARTY SALGADO M.D. Performed By: #### B MP, HS TROP, CBC #### [facility] [address] Basophils/100 WBC (Bld) 1.2 % Normal . [facility] Comment on above: Performed By: #### B MP, HS TROP, CBC #### [facility] [address] Eosinophils (Bld) [#/Vol] 0.3 10*3/uL Normal 0.0-0.45 [facility] Comment on above: Performed By: #### B MP, HS TROP, CBC #### [address] Eosinophils/100 WBC (Bld) 3.3 % Normal . [facility] Comment on above: Performed By: #### B MP, HS TROP, CBC #### [address] Erythrocyte distribution width (RBC) [Ratio] 16.1 % High 11.9-15.3 [facility] Comment on above: Performed By: #### B MP, HS TROP, CBC #### [address] Hematocrit (Bld) [Volume fraction] 39.7 % Normal 34.0-46.4 [facility] Comment on above: Performed By: #### B MP, HS TROP, CBC #### [address] Hemoglobin (Bld) [Mass/Vol] 12.8 g/dL Normal 11.8-15.4 [facility] Comment on above: Performed By: #### B MP, HS TROP, CBC #### [place] [address] [place] Lymphocytes (Bld) [#/Vol] 3.2 10*3/uL Normal 1.00-4.8 [facility] Comment on above: Performed By: #### B MP, HS TROP, CBC #### [address] Lymphocytes/100 WBC (Bld) 31.0 % Normal . [facility] Comment on above: Performed By: #### B MP, HS TROP, CBC #### [address] MCH (RBC) [Entitic mass] 23.1 pg Low 24.7-34.3 [facility] Comment on above: Performed By: #### B MP, HS TROP, CBC #### [address] MCV (RBC) [Entitic vol] 71.6 fL Low 80-100 [facility] Comment on above: Performed By: #### B MP, HS TROP, CBC #### [address] Mean Corpuscular HGB Conc 32.2 g/dL Normal 32.0-35.0 [facility] Comment on above: Performed By: #### B MP, HS TROP, CBC #### [address] Monocytes (Bld) [#/Vol] 0.7 10*3/uL Normal 0.0-0.8 [facility] Comment on above: Performed By: #### B MP, HS TROP, CBC #### [address] Monocytes/100 WBC (Bld) 6.5 % Normal . [facility] Comment on above: Performed By: #### B MP, HS TROP, CBC #### [address] Neutrophils (Bld) [#/Vol] 6.0 10*3/uL Normal 1.8-7.7 [facility] Comment on above: Performed By: #### B MP, HS TROP, CBC #### [address] Neutrophils/100 WBC (Bld) 58.0 % Normal . [facility] Comment on above: Performed By: #### B MP, HS TROP, CBC #### [address] NRBC% 0.2 /100{WBC} Normal 0-0.5 [facility] Comment on above: Performed By: #### B MP, HS TROP, CBC #### [address] Platelet mean volume (Bld) [Entitic vol] 7.2 fL Normal 6.3-10.7 [facility] Comment on above: Performed By: #### B MP, HS TROP, CBC #### [facility] [address] Platelets (Bld) [#/Vol] 394 10*3/uL Normal 150-450 [facility] Comment on above: Performed By: #### B MP, HS TROP, CBC #### [facility] [address] RBC (Bld) [#/Vol] 5.55 10*6/uL High 3.60-5.00 [facility] Comment on above: Performed By: #### B MP, HS TROP, CBC #### [facility] [address] WBC (Bld) [#/Vol] 10.3 10*3/uL Normal 3.8-11.6 [facility] Comment on above: Performed By: #### B MP, HS TROP, CBC #### [facility] [address] Comprehensive Metabolic Pane susan 07-13-2023 Albumin [Mass/Vol] 4.2 g/dL Normal 3.5-5.7 [facility] Comment on above: Performed By: #### B MP, HS TROP, CBC #### [facility] [address] [place] [address] Albumin/Globulin [Mass ratio] 1.2 {ratio} Normal [facility] Comment on above: Performed By: #### B MP, HS TROP, CBC #### [facility] [address] ALP [Catalytic activity/Vol] 113 U/L High 34-104 [facility] Comment on above: Performed By: #### B MP, HS TROP, CBC #### [facility] [address] ALT [Catalytic activity/Vol] 25 U/L Normal 7-52 [facility] Comment on above: Performed By: #### B MP, HS TROP, CBC #### [facility] [address] [place] [id number] [place] Anion gap [Moles/Vol] 11.4 mmol/L Normal 6.0-15.[address] [facility] Comment on above: Performed By: #### B MP, HS TROP, CBC #### [facility] [address] [place] [id number] [place] AST [Catalytic activity/Vol] 13 U/L Normal 13-39 [facility] Comment on above: Performed By: #### B MP, HS TROP, CBC #### [facility] [address] [place] [address] [place] Bilirubin [Mass/Vol] 0.6 mg/dL Normal 0.3-1.0 [facility] Comment on above: Performed By: #### B MP, HS TROP, CBC #### [facility] [address] [place] [address] [place] Calcium [Mass/Vol] 9.6 mg/dL Normal 8.6-10.3 [facility] Comment on above: Performed By: #### B MP, HS TROP, CBC #### [facility] [address] [place] [address] [place] Chloride [Moles/Vol] 106 mmol/L Normal 98-107 [facility] Comment on above: Performed By: #### B MP, HS TROP, CBC #### [facility] [address] [place] [address] [place] CO2 [Moles/Vol] 27.9 mmol/L Normal 21.0-31.0 [facility] Comment on above: Performed By: #### B MP, HS TROP, CBC #### [facility] [address] [place] [id number] [place] Creatinine [Mass/Vol] 0.69 mg/dL Normal 0.60-1.20 [facility] Comment on above: Performed By: #### B MP, HS TROP, CBC #### [facility] [address] [place] [address] [place] GFR/1.73 sq M.predicted MDRD (S/P/Bld) [Vol rate/Area] mL/min/{1.73_m2} Normal [facility] Comment on above: Performed By: #### B MP, HS TROP, CBC #### [facility] [address] Globulin (S) [Mass/Vol] 3.4 g/dL Normal [facility] Comment on above: Performed By: #### B MP, HS TROP, CBC #### [facility] [address] Glucose [Mass/Vol] 87 mg/dL Normal 70-100 [facility] Comment on above: Result Comment: [facility] Glucose Reference Range is dependent on time and content of last meal. Glucose of more than 200 mg/dL in a nonstressed, ambulatory subject supports the diagnosis of Diabetes Mellitus. ADA recommended reference range Performed By: #### B MP, HS TROP, CBC #### [facility] [address] Potassium [Moles/Vol] 4.3 mmol/L Normal 3.5-5.1 [facility] Comment on above: Performed By: #### B MP, HS TROP, CBC #### [facility] [address] [place] [address] [place] Protein [Mass/Vol] 7.6 g/dL Normal 6.4-8.9 [facility] Comment on above: Performed By: #### B MP, HS TROP, CBC #### [facility] [address] [place] [address] [place] Sodium [Moles/Vol] 141 mmol/L Normal 136-145 [facility] Comment on above: Performed By: #### B MP, HS TROP, CBC #### [facility] [address] [place] [address] [place] Urea nitrogen [Mass/Vol] 10 mg/dL Normal 7-25 [facility] Comment on above: Performed By: #### B MP, HS TROP, CBC #### [facility] [address] [place] [address] [place] Creatinine [Mass/volume] in Serum or PlasmaOrdered By: Marquise Disla on 07-13-2023 Creatinine [Mass/Vol] 0.69 mg/dL 0.60-1.20 [facility] Eosinophils Auto (Bld) [#/Vo l]Ordered By: Marquise Disla on 07-13-2023 Eosinophils (Bld) [#/Vol] 0.3 10*3/uL 0.0-0.45 [facility] Eosinophils/100 WBC Auto (Bl d)Ordered By: Marquise Disla on 07-13-2023 Eosinophils/100 WBC (Bld) 3.3 % . [facility] Erythrocyte distribution wid th Auto (RBC) [Ratio]Ordered By: Marquise Disla on 07-13-2023 Erythrocyte distribution width (RBC) [Ratio] 16.1 % 11.9-15.3 [facility] Globulin Calc (S) [Mass/Vol] Ordered By: Marquise Disla on 07-13-2023 Globulin (S) [Mass/Vol] 3.4 g/dL [facility] Glucose [Mass/volume] in Ser um or PlasmaOrdered By: Marquise Disla on 07-13-2023 Glucose [Mass/Vol] 87 mg/dL 70-100 [facility] Comment on above: ADA recommended refe rence rangeRandom Glucose Reference Range is dependent on time and content of last meal. Glucose of more than 200 mg/dL in a nonstressed, ambulatory subject supports the diagnosis of Diabetes Mellitus. Hematocrit Auto (Bld) [Volum e fraction]Ordered By: Marquise Disla on 07-13-2023 Hematocrit (Bld) [Volume fraction] 39.7 % 34.0-46.4 [facility] Hemoglobin [Mass/volume] in BloodOrdered By: Marquise Disla on 07-13-2023 Hemoglobin (Bld) [Mass/Vol] 12.8 g/dL 11.8-15.4 [facility] LDL Cholesterol Measuredon 0 07-13-2023 LDL Cholesterol Measured 171 mg/dL High 0-100 [facility] Comment on above: Result Comment: LDL ATP III CLASSIFICATION LDL less than 100 mg/dL Optimal LDL 100-129 mg/dL Near or above optimal LDL 130-159 mg/dL Borderline high LDL 160-189 mg/dL High LDL greater than 189 mg/dL Very high Performed By: #### B MP, HS TROP, CBC #### [facility] [address] [place] [id number] [place] Leukocytes [#/volume] correc abdias for nucleated erythrocytes in Blood by Automated counOrdered By: Marquise Disla on 07-13-2023 WBC corrected for nucl RBC Auto (Bld) [#/Vol] 10.3 10*3/uL 3.8-11.6 [facility] Lipid Panelon 07-13-2023 Cholesterol [Mass/Vol] 208 mg/dL High 140-[address] [facility] Comment on above: Result Comment: Chol less than 200 mg/dl low risk Chol 201-239 mg/dl borderline risk Chol 240 mg/dl and greater high risk Performed By: #### B MP, HS TROP, CBC #### [facility] [address] Cholesterol in HDL [Mass/Vol] 40 mg/dL Normal 23-92 [facility] Comment on above: Result Comment: HDL CHOL ATP-III CLASSIFICATION Cardiovascular Risk HDL > or equal to 60 mg/dL LOW HDL < 40 mg/dL HIGH Performed By: #### B MP, HS TROP, CBC #### [facility] [address] Cholesterol.total/Candy sterol in HDL [Mass ratio] 5.2 {ratio} Normal <5.0 [facility] Comment on above: Performed By: #### B MP, HS TROP, CBC #### [facility] [address] [place] [id number] [place] LDL Cholesterol,Calculated 150 mg/dL High 0-100 [facility] Comment on above: Result Comment: LDL ATP III CLASSIFICATION LDL less than 100 mg/dL Optimal LDL 100-129 mg/dL Near or above optimal LDL 130-159 mg/dL Borderline high LDL 160-189 mg/dL High LDL greater than 189 mg/dL Very high Performed By: #### B MP, HS TROP, CBC #### [facility] [address] [id number] [place] Triglyceride w/Reflex 88 mg/dL Normal 0-149 [facility] Comment on above: Result Comment: TRIG ATP III CLASSIFICATION TRIG less than 150 mg/dL Normal TRIG 150-199 mg/dL Borderline high TRIG 200-500 mg/dL High TRIG greater than 500 mg/dL Very high Standard traceable to the Center for Disease Conrtrol and Prevention (CDC) test method. Performed By: #### B MP, HS TROP, CBC #### [facility] [address] VLDL CHOLESTEROL 17 mg/dL Normal [facility] Comment on above: Performed By: #### B MP, HS TROP, CBC #### [facility] [address] Lymphocytes Auto (Bld) [#/Vo l]Ordered By: Marquise Disla on 07-13-2023 Lymphocytes (Bld) [#/Vol] 3.2 10*3/uL 1.00-4.8 [facility] Lymphocytes/100 WBC Auto (Bl d)Ordered By: Marquise Disla on 07-13-2023 Lymphocytes/100 WBC (Bld) 31.0 % . [facility] MCH Auto (RBC) [Entitic mass ]Ordered By: Marquise Disla on 07-13-2023 MCH (RBC) [Entitic mass] 23.1 pg 24.7-34.3 [facility] MCHC Auto (RBC) [Mass/Vol]Or dered By: Marquise Disla on 07-13-2023 MCHC (RBC) [Mass/Vol] 32.2 g/dL 32.0-35.0 [facility] MCV Auto (RBC) [Entitic vol] Ordered By: Marquise Disla on 07-13-2023 MCV (RBC) [Entitic vol] 71.6 fL 80-100 [facility] Monocytes Auto (Bld) [#/Vol] Ordered By: Marquise Disla on 07-13-2023 Monocytes (Bld) [#/Vol] 0.7 10*3/uL 0.0-0.8 [facility] Monocytes/100 WBC Auto (Bld) Ordered By: Marquise Disla on 07-13-2023 Monocytes/100 WBC (Bld) 6.5 % . [facility] Neutrophils Auto (Bld) [#/Vo l]Ordered By: Marquise Disla on 07-13-2023 Neutrophils (Bld) [#/Vol] 6.0 10*3/uL 1.8-7.7 [facility] Neutrophils/100 WBC Auto (Bl d)Ordered By: Marquise Disla on 07-13-2023 Neutrophils/100 WBC (Bld) 58.0 % . [facility] No Panel InformationOrdered By: Marquise Disla on 07-13-2023 Estimated GFR (CKD-EPI) > 60.0 mL/Min [facility] Creatinine Clearance (Chem N/A [facility] Nucleated erythrocytes [Pres ence] in Blood by Automated countOrdered By: Marquise Disla on 07-13-2023 Nucleated RBC Auto Ql (Bld) 0.2 /100{WBC} 0-0.5 [facility] Platelet mean volume Auto (B ld) [Entitic vol]Ordered By: Marquise Disla on 07-13-2023 Platelet mean volume (Bld) [Entitic vol] 7.2 fL 6.3-10.7 [facility] Platelets Auto (Bld) [#/Vol] Ordered By: Marquise Disla on 07-13-2023 Platelets (Bld) [#/Vol] 394 10*3/uL 150-450 [facility] Potassium [Moles/volume] in Serum or PlasmaOrdered By: Marquise Disla on 07-13-2023 Potassium [Moles/Vol] 4.3 mmol/L 3.5-5.1 [facility] Protein [Mass/volume] in Ser um or PlasmaOrdered By: Marquise Disla on 07-13-2023 Protein [Mass/Vol] 7.6 g/dL 6.4-8.9 [facility] RBC Auto (Bld) [#/Vol]Ordere d By: Marquise Disla on 07-13-2023 RBC (Bld) [#/Vol] 5.55 10*6/uL 3.60-5.00 [facility] Serum or plasma albumin/glob ulin mass ratioOrdered By: Marquise Disla on 07-13-2023 Albumin/Globulin [Mass ratio] 1.2 {ratio} [facility] Serum or plasma anion gap de terminationOrdered By: Marquise Disla on 07-13-2023 Anion gap [Moles/Vol] 11.4 mmol/L 6.0-15.[address] [facility] Serum or plasma high density lipoprotein (HDL) cholesterol measurementOrdered By: Marquise Disla on 07-13-2023 Cholesterol in HDL [Mass/Vol] 40 mg/dL 23- [facility] Comment on above: HDL CHOL ATP-III CLA SSIFICATION Cardiovascular RiskHDL > or equal to 60 mg/dL LOWHDL < 40 mg/dL HIGH Serum or plasma total choles terol/high density lipoprotein (HDL) cholesterol mass ratOrdered By: Marquise Disla on 07-13-2023 Cholesterol.total/Candy sterol in HDL [Mass ratio] 5.2 {ratio} <5.0 [facility] Sodium [Moles/volume] in Ser um or PlasmaOrdered By: Marquise Disla on 07-13-2023 Sodium [Moles/Vol] 141 mmol/L 136-145 [facility] Triglyceride [Mass/volume] i n Serum or PlasmaOrdered By: Marquise Disla on 07-13-2023 Triglyceride [Mass/Vol] 88 mg/dL 0-149 [facility] Comment on above: TRIG ATP III CLASSIF ICATIONTRIG less than 150 mg/dL NormalTRIG 150-199 mg/dL Borderline highTRIG 200-500 mg/dL High TRIG greater than 500 mg/dL Very highStandard traceable to the Center for Disease Conrtrol and Prevention (CDC) test method. Urea nitrogen [Mass/volume] in Serum or PlasmaOrdered By: Marquise Disla on 07-13-2023 Urea nitrogen [Mass/Vol] 10 mg/dL 7-25 [facility] Vitamin B12on 07-13-2023 Cobalamin (Vitamin B12) [Mass/Vol] 324 pg/mL Normal 180-914 [facility] Comment on above: Result Comment: PERF ORMED BY: [place] [address] PATHOLOGIST INTERNAL [employer]OLESALER MARTY SALGADO M.D. Performed By: #### B MP, HS TROP, CBC #### [address] Vitamin B12 ser/plasOrdered By: Marquise Disla on 07-13-2023 Cobalamin (Vitamin B12) [Mass/Vol] 324 pg/mL 180-914 [facility] WBC Auto (Bld) [#/Vol]Ordere d By: Marquise Disla on 07-13-2023 WBC (Bld) [#/Vol] 10.3 10*3/uL 3.8-11.6 [facility] Automated erythrocytes count in urine sediment (number/area)Ordered By: Agustin Sandra on 07-01-2023 RBC Auto (Urine sed) [#/Area] 5-9 [HPF] 0-4 [facility] Automated leukocytes count i n urine sediment (number/area)Ordered By: Agustin Sandra on 07-01-2023 WBC Auto (Urine sed) [#/Area] 0-1 [HPF] 0-4 [facility] Basic Metabolic Panelon 08 Anion gap [Moles/Vol] 11.0 mmol/L Normal 6.0-15.[address] [facility] Comment on above: Performed By: #### B MP, HS TROP, CBC #### [facility] [address] [id number] [place] Calcium [Mass/Vol] 9.3 mg/dL Normal 8.6-10.3 [facility] Comment on above: Performed By: #### B MP, HS TROP, CBC #### [facility] [address] [id number] [place] Chloride [Moles/Vol] 104 mmol/L Normal 98-107 [facility] Comment on above: Performed By: #### B MP, HS TROP, CBC #### [facility] [address] [place] [address] [place] CO2 [Moles/Vol] 27.9 mmol/L Normal 21.0-31.0 [facility] Comment on above: Performed By: #### B MP, HS TROP, CBC #### [facility] [address] [place] [address] [place] Creatinine [Mass/Vol] 0.79 mg/dL Normal 0.60-1.20 [facility] Comment on above: Performed By: #### B MP, HS TROP, CBC #### [facility] [address] [place] [address] [place] Creatinine Clr Calc Pharmacy 127.26 Normal [facility] Comment on above: Result Comment: PERF ORMED BY: [place] [address] PATHOLOGIST INTERNAL [employer]OLESALER MARTY SALGADO M.D. Performed By: #### B MP, HS TROP, CBC #### [facility] [address] [place] [address] [place] GFR/1.73 sq M.predicted MDRD (S/P/Bld) [Vol rate/Area] mL/min/{1.73_m2} Normal [facility] Comment on above: Performed By: #### B MP, HS TROP, CBC #### [address] Glucose [Mass/Vol] 92 mg/dL Normal 70-100 [facility] Comment on above: Result Comment: [place] Glucose Reference Range is dependent on time and content of last meal. Glucose of more than 200 mg/dL in a nonstressed, ambulatory subject supports the diagnosis of Diabetes Mellitus. ADA recommended reference range Performed By: #### B MP, HS TROP, CBC #### [place] [address] [place] Potassium [Moles/Vol] 3.9 mmol/L Normal 3.5-5.1 [facility] Comment on above: Performed By: #### B MP, HS TROP, CBC #### [place] [address] [place] Sodium [Moles/Vol] 139 mmol/L Normal 136-145 [facility] Comment on above: Performed By: #### B MP, HS TROP, CBC #### [place] [address] [place] Urea nitrogen [Mass/Vol] 7 mg/dL Normal 7-25 [facility] Comment on above: Performed By: #### B MP, HS TROP, CBC #### [place] [address] [place] Basophils Auto (Bld) [#/Vol] Ordered By: Agustin Sandra on 07-01-2023 Basophils (Bld) [#/Vol] 0.1 10*3/uL 0.0-0.2 [facility] Basophils/100 WBC Auto (Bld) Ordered By: Agustin Sandra on 07-01-2023 Basophils/100 WBC (Bld) 0.6 % . [facility] Bilirubin Test strip Ql (U)O rdered By: Agustin Sandra on 07-01-2023 Bilirubin Ql (U) Negative Negative [facility] Calcium [Mass/volume] in Ser um or PlasmaOrdered By: Agustin Sandra on 07-01-2023 Calcium [Mass/Vol] 9.3 mg/dL 8.6-10.3 [facility] Carbon dioxide, total [Moles /volume] in Serum or PlasmaOrdered By: Agustin Sandra on 07-01-2023 CO2 [Moles/Vol] 27.9 mmol/L 21.0-31.0 [facility] Chloride [Moles/volume] in S brian or PlasmaOrdered By: Agustin Sandra on 07-01-2023 Chloride [Moles/Vol] 104 mmol/L 98-107 [facility] Color Auto (U)Ordered By: Naun Sandra on 07-01-2023 Color (U) Yellow Yellow [facility] Complete Blood Count Auto Di ffon 07-01-2023 Basophils (Bld) [#/Vol] 0.1 10*3/uL Normal 0.0-0.2 [facility] Comment on above: Result Comment: PERF ORMED BY: [place] [address] PATHOLOGIST INTERNAL WHOLESALER MARTY SALGADO M.D. Performed By: #### B MP, HS TROP, CBC #### [facility] [address] Basophils/100 WBC (Bld) 0.6 % Normal . [facility] Comment on above: Performed By: #### B MP, HS TROP, CBC #### [place] [address] Eosinophils (Bld) [#/Vol] 0.1 10*3/uL Normal 0.0-0.45 [facility] Comment on above: Performed By: #### B MP, HS TROP, CBC #### [address] Eosinophils/100 WBC (Bld) 1.1 % Normal . [facility] Comment on above: Performed By: #### B MP, HS TROP, CBC #### [address] Erythrocyte distribution width (RBC) [Ratio] 16.1 % High 11.9-15.3 [facility] Comment on above: Performed By: #### B MP, HS TROP, CBC #### [address] Hematocrit (Bld) [Volume fraction] 38.1 % Normal 34.0-46.4 [facility] Comment on above: Performed By: #### B MP, HS TROP, CBC #### [address] Hemoglobin (Bld) [Mass/Vol] 12.3 g/dL Normal 11.8-15.4 [facility] Comment on above: Performed By: #### B MP, HS TROP, CBC #### [address] Lymphocytes (Bld) [#/Vol] 0.7 10*3/uL Low 1.00-4.8 [facility] Comment on above: Performed By: #### B MP, HS TROP, CBC #### [place] [address] [place] Lymphocytes/100 WBC (Bld) 8.1 % Normal . [facility] Comment on above: Performed By: #### B MP, HS TROP, CBC #### [address] MCH (RBC) [Entitic mass] 23.0 pg Low 24.7-34.3 [facility] Comment on above: Performed By: #### B MP, HS TROP, CBC #### [facility] [address] [place] [address] [place] MCV (RBC) [Entitic vol] 71.2 fL Low 80-100 [facility] Comment on above: Performed By: #### B MP, HS TROP, CBC #### [facility] [address] Mean Corpuscular HGB Conc 32.3 g/dL Normal 32.0-35.0 [facility] Comment on above: Performed By: #### B MP, HS TROP, CBC #### [facility] [address] [place] [address] [place] Monocytes (Bld) [#/Vol] 0.7 10*3/uL Normal 0.0-0.8 [facility] Comment on above: Performed By: #### B MP, HS TROP, CBC #### [facility] [address] [place] [address] [place] Monocytes/100 WBC (Bld) 24.10 % High 0.00-20.00 [facility] Comment on above: Result Comment: For adults in ED, MDW > 20.0 may be associated with a higher risk of sepsis during the first 12 hrs of hospital admission Performed By: #### B MP, HS TROP, CBC #### [facility] [address] Monocytes/100 WBC (Bld) 8.5 % Normal . [facility] Comment on above: Performed By: #### B MP, HS TROP, CBC #### [facility] [address] [place] [address] [place] Neutrophils (Bld) [#/Vol] 6.7 10*3/uL Normal 1.8-7.7 [facility] Comment on above: Performed By: #### B MP, HS TROP, CBC #### [facility] [address] [place] [address] [place] Neutrophils/100 WBC (Bld) 81.7 % Normal . [facility] Comment on above: Performed By: #### B MP, HS TROP, CBC #### [facility] [address] [place] [address] NRBC% 0.0 /100{WBC} Normal 0-0.5 [facility] Comment on above: Performed By: #### B MP, HS TROP, CBC #### [facility] [address] Platelet mean volume (Bld) [Entitic vol] 7.4 fL Normal 6.3-10.7 [facility] Comment on above: Performed By: #### B MP, HS TROP, CBC #### [facility] [address] Platelets (Bld) [#/Vol] 320 10*3/uL Normal 150-450 [facility] Comment on above: Performed By: #### B MP, HS TROP, CBC #### [address] RBC (Bld) [#/Vol] 5.35 10*6/uL High 3.60-5.00 [facility] Comment on above: Performed By: #### B MP, HS TROP, CBC #### [address] WBC (Bld) [#/Vol] 8.2 10*3/uL Normal 3.8-11.6 [facility] Comment on above: Performed By: #### B MP, HS TROP, CBC #### [address] Creatinine [Mass/volume] in Serum or PlasmaOrdered By: Agustin Sandra on 07-01-2023 Creatinine [Mass/Vol] 0.79 mg/dL 0.60-1.20 [facility] Dipstick and Microscopicon 0 07-01-2023 Appearance (U) Cloudy Critically abnormal Clear [facility] Comment on above: Order Comment: Name Collection Type:: Clean-Voided Midstream Performed By: #### B MP, HS TROP, CBC #### [address] Bacteria,Urine None Seen Normal None Seen [facility] Comment on above: Order Comment: Name Collection Type:: Clean-Voided Midstream Performed By: #### B MP, HS TROP, CBC #### [facility] [address] [place] [address] [place] Bilirubin,Urine Negative Normal Negative [facility] Comment on above: Order Comment: Name Collection Type:: Clean-Voided Midstream Performed By: #### B MP, HS TROP, CBC #### [facility] [address] [place] [address] [place] Color (U) Yellow Normal Yellow [facility] Comment on above: Order Comment: Name Collection Type:: Clean-Voided Midstream Performed By: #### B MP, HS TROP, CBC #### [facility] [address] Glucose Ql (U) Normal Normal Normal [facility] Comment on above: Order Comment: Name Collection Type:: Clean-Voided Midstream Performed By: #### B MP, HS TROP, CBC #### [facility] [address] [place] [address] [place] Hyaline Casts,Urine None Seen Normal 0-8 [facility] Comment on above: Order Comment: Name Collection Type:: Clean-Voided Midstream Performed By: #### B MP, HS TROP, CBC #### [facility] [address] [place] [address] [place] Ketones Ql (U) Negative Normal Negative [facility] Comment on above: Order Comment: Name Collection Type:: Clean-Voided Midstream Performed By: #### B MP, HS TROP, CBC #### [facility] [address] [place] [address] [place] Leukocyte esterase Test strip Ql (U) Negative Normal Negative [facility] Comment on above: Order Comment: Name Collection Type:: Clean-Voided Midstream Performed By: #### B MP, HS TROP, CBC #### [facility] [address] [place] [address] [place] Nitrite,Urine Negative Normal Negative [facility] Comment on above: Order Comment: Name Collection Type:: Clean-Voided Midstream Performed By: #### B MP, HS TROP, CBC #### [facility] [address] [place] [address] Occult Blood,Urine Trace High Negative [facility] Comment on above: Order Comment: Name Collection Type:: Clean-Voided Midstream Performed By: #### B MP, HS TROP, CBC #### [address] pH (U) 8.5 [pH] Normal 5.0-9.0 [facility] Comment on above: Order Comment: Name Collection Type:: Clean-Voided Midstream Performed By: #### B MP, HS TROP, CBC #### [address] Protein,Urine Negative Normal Negative [facility] Comment on above: Order Comment: Name Collection Type:: Clean-Voided Midstream Performed By: #### B MP, HS TROP, CBC #### [address] RBC,Urine 5-9 High 0-4 [facility] Comment on above: Order Comment: Name Collection Type:: Clean-Voided Midstream Performed By: #### B MP, HS TROP, CBC #### [address] Specificy [place],Urine 1.012 Normal 1.001-1.030 [facility] Comment on above: Order Comment: Name Collection Type:: Clean-Voided Midstream Performed By: #### B MP, HS TROP, CBC #### [place] [address] [place] Squamous Epithelial Cell,Urine 0-1 Normal 0-2 [facility] Comment on above: Order Comment: Name Collection Type:: Clean-Voided Midstream Performed By: #### B MP, HS TROP, CBC #### [address] Urobilinogen,Urine Normal Normal Normal [facility] Comment on above: Order Comment: Name Collection Type:: Clean-Voided Midstream Performed By: #### B MP, HS TROP, CBC #### [place] [address] [place] WBC LM.HPF (Urine sed) [#/Area] 0 /[HPF] Normal 0-4 [facility] Comment on above: Order Comment: Name Collection Type:: Clean-Voided Midstream Performed By: #### B MP, HS TROP, CBC #### [facility] [address] [place] [address] [place] Eosinophils Auto (Bld) [#/Vo l]Ordered By: Agustin Sandra on 07-01-2023 Eosinophils (Bld) [#/Vol] 0.1 10*3/uL 0.0-0.45 [facility] Eosinophils/100 WBC Auto (Bl d)Ordered By: Agustin Sandra on 07-01-2023 Eosinophils/100 WBC (Bld) 1.1 % . [facility] Erythrocyte distribution wid th Auto (RBC) [Ratio]Ordered By: Agustin Sandra on 07-01-2023 Erythrocyte distribution width (RBC) [Ratio] 16.1 % 11.9-15.3 [facility] Glucose [Mass/volume] in Ser um or PlasmaOrdered By: Agustin Sanrda on 07-01-2023 Glucose [Mass/Vol] 92 mg/dL 70-100 [facility] Comment on above: ADA recommended refe rence rangeRandom Glucose Reference Range is dependent on time and content of last meal. Glucose of more than 200 mg/dL in a nonstressed, ambulatory subject supports the diagnosis of Diabetes Mellitus. HCG ( test) IA.rapi d Ql (U)Ordered By: Agustin Sandra on 07-01-2023 HCG ( test) Ql (U) Negative [facility] HCG,Urineon 07-01-2023 Beta HCG ( test) Ql (U) Negative Normal [facility] Comment on above: Order Comment: Name Collection Type:: Clean-Voided Midstream Result Comment: PERF ORMED BY: [address] [place] [address] PATHOLOGIST INTERNAL WHOLESALER MARTY SALGADO M.D. Performed By: #### B MP, HS TROP, CBC #### [facility] [address] [place] [address] [place] Hematocrit Auto (Bld) [Volum e fraction]Ordered By: Agustin Sandra on 07-01-2023 Hematocrit (Bld) [Volume fraction] 38.1 % 34.0-46.4 [facility] Hemoglobin [Mass/volume] in BloodOrdered By: Agustin Sandra on 07-01-2023 Hemoglobin (Bld) [Mass/Vol] 12.3 g/dL 11.8-15.4 [facility] Ketones Auto test strip (U) [Mass/Vol]Ordered By: Agustin Sandra on 07-01-2023 Ketones (U) [Mass/Vol] Negative Negative [facility] - UrinalysisOrder ed By: Agustin Sandra on 07-01-2023 Hyaline casts LM Ql (Urine sed) None seen [LPF] 0-8 [facility] Leukocytes [#/volume] correc abdias for nucleated erythrocytes in Blood by Automated counOrdered By: Agustin Sandra on 07-01-2023 WBC corrected for nucl RBC Auto (Bld) [#/Vol] 8.2 10*3/uL 3.8-11.6 [facility] Lymphocytes Auto (Bld) [#/Vo l]Ordered By: Agustin Sandra on 07-01-2023 Lymphocytes (Bld) [#/Vol] 0.7 10*3/uL 1.00-4.8 [facility] Lymphocytes/100 WBC Auto (Bl d)Ordered By: Agustin Sandra on 07-01-2023 Lymphocytes/100 WBC (Bld) 8.1 % . [facility] MCH Auto (RBC) [Entitic mass ]Ordered By: Agustin Sandra on 07-01-2023 MCH (RBC) [Entitic mass] 23.0 pg 24.7-34.3 [facility] MCHC Auto (RBC) [Mass/Vol]Or dered By: Agustin Sandra on 07-01-2023 MCHC (RBC) [Mass/Vol] 32.3 g/dL 32.0-35.0 [facility] MCV Auto (RBC) [Entitic vol] Ordered By: Agustin Sandra on 07-01-2023 MCV (RBC) [Entitic vol] 71.2 fL 80-100 [facility] Monocyte distribution width [Entitic volume] in Blood by AutomatedOrdered By: Agustin Sandra on 07-01-2023 Monocyte distribution width Auto (Bld) [Entitic vol] 24.10 % 0.00-20.00 [facility] Comment on above: For adults in ED, MD W > 20.0 may be associated with a higher risk of sepsis during the first 12 hrs of hospital admission Monocytes Auto (Bld) [#/Vol] Ordered By: Agustin Sandra on 07-01-2023 Monocytes (Bld) [#/Vol] 0.7 10*3/uL 0.0-0.8 [facility] Monocytes/100 WBC Auto (Bld) Ordered By: Agustin Sandra on 07-01-2023 Monocytes/100 WBC (Bld) 8.5 % . [facility] Neutrophils Auto (Bld) [#/Vo l]Ordered By: Agustin Sandra on 07-01-2023 Neutrophils (Bld) [#/Vol] 6.7 10*3/uL 1.8-7.7 [facility] Neutrophils/100 WBC Auto (Bl d)Ordered By: Agustin Sandra on 07-01-2023 Neutrophils/100 WBC (Bld) 81.7 % . [facility] Nitrite Test strip Ql (U)Ord ered By: Agustin Sandra on 07-01-2023 Nitrite Ql (U) Negative Negative [facility] No Panel InformationOrdered By: Agustin Sandra on 07-01-2023 Estimated GFR (CKD-EPI) > 60.0 mL/Min [facility] Creatinine Clearance (Chem 127.26 [facility] Nucleated erythrocytes [Pres ence] in Blood by Automated countOrdered By: Agustin Sandra on 07-01-2023 Nucleated RBC Auto Ql (Bld) 0.0 /100{WBC} 0-0.5 [facility] Platelet mean volume Auto (B ld) [Entitic vol]Ordered By: Agustin Sandra on 07-01-2023 Platelet mean volume (Bld) [Entitic vol] 7.4 fL 6.3-10.7 [facility] Platelets Auto (Bld) [#/Vol] Ordered By: Agustin Sandra on 07-01-2023 Platelets (Bld) [#/Vol] 320 10*3/uL 150-450 [facility] Potassium [Moles/volume] in Serum or PlasmaOrdered By: Agustin Sandra on 07-01-2023 Potassium [Moles/Vol] 3.9 mmol/L 3.5-5.1 [facility] Protein Auto test strip (U) [Mass/Vol]Ordered By: Agustin Sandra on 07-01-2023 Protein (U) [Mass/Vol] Negative Negative [facility] RBC Auto (Bld) [#/Vol]Ordere d By: Agustin Sandra on 07-01-2023 RBC (Bld) [#/Vol] 5.35 10*6/uL 3.60-5.00 [facility] Serum or plasma anion gap de terminationOrdered By: Agustin Sandra on 07-01-2023 Anion gap [Moles/Vol] 11.0 mmol/L 6.0-15.[address] [facility] Sodium [Moles/volume] in Ser um or PlasmaOrdered By: Agustin Sandra on 07-01-2023 Sodium [Moles/Vol] 139 mmol/L 136-145 [facility] Specific gravity Auto test s trip (U) [Rel density]Ordered By: Agustin Sandra on 07-01-2023 Specific gravity (U) [Rel density] 1.012 1.001-1.030 [facility] Squamous epithelial cells de tection in urine sediment by light microscopyOrdered By: Agustin Sandra 07-01-2023 Epithelial cells.squamous LM Ql (Urine sed) 0-1 [HPF] 0-2 [facility] Urea nitrogen [Mass/volume] in Serum or PlasmaOrdered By: Agustin Sandra on 07-01-2023 Urea nitrogen [Mass/Vol] 7 mg/dL 7-25 [facility] Urine bacteria detection by automated methodOrdered By: Agustin Sandra on 07-01-2023 Bacteria Auto Ql (U) None seen None Seen [facility] Urine clarity by refractomet ry automatedOrdered By: Agustin Sandra 07-01-2023 Clarity Refractometry automated (U) Cloudy Clear [facility] Urine glucose measurement by automated test strip (mass/volume)Ordered By: Agustin Sandra on 07-01-2023 Glucose Auto test strip (U) [Mass/Vol] Normal mg/dL Normal [facility] Urine hemoglobin detection b y automated test stripOrdered By: Agustin Sandra on 07-01-2023 Hemoglobin Auto test strip Ql (U) Trace Negative [facility] Urine leukocyte esterase det ection by automated test stripOrdered By: Agustin Sandra on 07-01-2023 Leukocyte esterase Auto test strip Ql (U) Negative Negative [facility] Urobilinogen Auto test strip (U) [Mass/Vol]Ordered By: Agustin Sandra on 07-01-2023 Urobilinogen (U) [Mass/Vol] Normal mg/dL Normal [facility] WBC Auto (Bld) [#/Vol]Ordere d By: Agustin Sandra on 07-01-2023 WBC (Bld) [#/Vol] 8.2 10*3/uL 3.8-11.6 [facility] pH Auto test strip (U)Ordere d By: Agustin Sandra on 07-01-2023 pH (U) 8.5 [pH] 5.0-9.0 [facility] CT head/brain wo conon 06-19 CT head/[place] [address] CT Scan Report Signed Patient: Loy Tam MR#: [id number] : 1980 Acct:[id number] Age/Sex: 42 / F ADM Date: 06/18/23 Loc: ER Room: Type: [facility] ER Attending Dr: Copies to: Princess Guevara MD, RES Gabriel Breaux Jr, MD Ordering Provider: Princess Guevara MD, RES Date of Service: 06/18/23 CT/CT head/brain wo con: fall, head trauma CT head/brain wo con 06/18/2023 10:01 PM SIGNS AND SYMPTOMS: Syncopal episode TECHNIQUE:Multi-detec tor CT axial slices of the brain were obtained without IV contrast. CT was performed with one or more of the following dose reduction techniques: Automated exposure control, adjustment of the mA and/or kV according to patient size, or use of iterative reconstruction technique. COMPARISON: None. FINDINGS: There is no shift of the midline structures, acute intracranial bleeding, mass effects, or evidence of acute ischemia. The ventricular system is normal in size. The brainstem and the cerebellum are unremarkable. The visualized intraorbital contents, the visualized paranasal sinuses, and the infratemporal soft tissues show no acute abnormality. The osseous structures in the skull base and the calvarium show no abnormality. CT/CT head/brain wo con IMPRESSION: Normal noncontrasted CT brain. Impression dictated by: Alan Matta M.D.06/19/2023 10:48 AM Dictation Location: [place] [address] Transcribed By: [facility] 06/19/23 104 Dictated By: Alan Matta II, MD 06/19/231046 Signed By: 06/19/23 1048 Normal [facility] XR shoulder LT min 2V*on XR shoulder LT min 2V* [facility] Main [place] [address] [place] [address] XRay Report Signed Patient: Loy Tam MR#: [id number] : 1980 Acct:[id number] Age/Sex: 42 / F ADM Date: 06/18/23 Loc: ER Room: Type: [facility] ER Attending Dr: Copies to: Princess Guevara MD, RES Gabriel Breaux Jr, MD Ordering Provider: Princess Guevara MD, RES Date of Service: 06/18/23 XR/XR shoulder LT min 2V*: shoulder pain XR shoulder LT min 2V* 06/18/2023 10:01 PM SIGNS AND SYMPTOMS: Syncopal episode, increasing left shoulder pain PROTOCOL: Frontal, Grashey, and scapular Y views of the left shoulder COMPARISON: None FINDINGS: The glenohumeral joint and acromioclavicular joint are grossly intact. Mild hypertrophy is noted in the acromioclavicular joint. There is no fracture or dislocation. The visualized left hemithorax is grossly intact. XR/XR shoulder LT min 2V* IMPRESSION: No fracture or dislocation. Degenerative changes are noted in the left shoulder, as above. Impression dictated by: Alan Matta M.D.06/19/2023 10:53 AM Dictation Location: [place] [address] Transcribed By: [facility] 06/19/23 1053 Dictated By: Alan Matta II, MD 06/19/23 1049 Signed By: 06/19/23 1053 [facility] ECG 12 lead ECGon 06-18-2023 ECG 12 lead ECG [facility] Main [address] [address] Electrocardiograph Report Signed Patient: Loy Tam MR#: [id number] : 1980 Acct:[id number] Age/Sex: 42 / F ADM Date: 06/18/23 Loc: ER Room: Type: [facility] ER Attending Dr: Ordering Provider: Gabriel Breaux Jr, MD Date of Service: 06/18/23 ECG/ECG 12 lead ECG: Chest Pain Copies to: Test Reason : Blood Pressure : 138/072 mmHG Vent. Rate : 088 BPM Atrial Rate : 088 BPM P-R Int : 164 ms QRS Dur : 084 ms QT Int : 352 ms P-R-T Axes : 086 083 050 degrees QTc Int : 425 ms Normal sinus rhythm with sinus arrhythmia Possible Anterior infarct (cited on or before 30-OCT-2021) Abnormal ECG When compared with ECG of 30-MAY-2023 23:32, No significant change was found Confirmed by GABRIEL BREAUX MD ([id number]) on 06/19/2023 3:14:16 AM Referred By: Electronically Signed By:GABRIEL BREAUX MD Transcribed By: MUS Signed By Gabriel Breaux Jr, MD 0314 [facility] XR wrist LT min 3V*on 2022 XR wrist LT min 3V* [address] [address] XRay Report Signed Patient: Loy Tam MR#: [id number] : 1980 Acct:[id number] Age/Sex: 42 / F ADM Date: 06/14/23 Loc: [facility] Room: Type: REG CLI Attending Dr: Gabriel Rosenberg MD Copies to: Gabriel Rosenberg MD Ordering Provider: Gabriel Rosenberg MD Date of Service: 06/14/23 XR/XR wrist LT min 3V*: Acute pain of left wrist LEFT WRIST - 4 views CLINICAL HISTORY: Left wrist pain. COMPARISON: Left wrist 04/18/2023 FINDINGS: No focal soft tissue abnormality. No acute bony process is seen. Carpus demonstrates mild scattered degenerative changes without bony erosions. Findings are similar to the prior study. Negative ulnar variance of approximately 4.7 mm. IP joints demonstrate mild degenerative change. XR/XR wrist LT min 3V* IMPRESSION: MILD DEGENERATIVE CHANGES GROSSLY SIMILAR TO THE PRIOR STUDY. NO ACUTE BONY PROCESS IS SEEN. Impression dictated by: Marquise Mendenhall Jr., D.ORosey06/14/2023 2:35 PM Dictation Location: [place] [address] Transcribed By: [facility] 06/14/23 1435 Dictated By: Marquise Mendenhall Jr, DO 06/14/23 1432 Signed By: 06/14/23 1435 Normal [facility] NM priyanka perf SPECT rest stron 06-07-2023 NM priyanka perf SPECT rest str [facility] Main [place] [address] [place] [address] Nuclear Medicine Report Signed Patient: Loy Tam MR#: [id number] : 1980 Acct:[id number] Age/Sex: 42 / F ADM Date: 05/30/23 Loc: ER Room: Type: [facility] ER Attending Dr: Copies to: DO Arnoldo Hansen DO Mourhaf A Traboulssi, MD Ordering Provider: Arnoldo Pérez DO Date of Service: 06/03/23 NM/NM priyanka perf SPECT rest str: chest pain REFERRING PHYSICIAN: Arnoldo Pérez DO REASON FOR STUDY: Chest pain. PROCEDURE: Rest images obtained by injecting 29.6 mCi of Cardiolite. Stress images obtained by injecting 29.1 mCi of Cardiolite. Subsequently, gated SPECT and ejection fraction studies were performed. IMAGING RESULT: This appeared to be a fair study. There is no clear pattern of ischemia or myocardial infarction. Left ventricular ejection fraction appears normal and calculated at 57%. TID index is normal at 1.02. CONCLUSION: 1. No clear pattern of ischemia or myocardial infarction. 2. Normal left ventricular systolic function and wall motion. 3. No previous study available for comparison. Transcribed By: CAILIN 06/07/23 1158 Dictated By: Tyler Hanson MD 06/07/23 1147 Signed By: 06/07/23 1253 [facility] STR cardiac stress/lexiscano n 06-03-2023 STR cardiac stress/lexiscan [facility] [place] [address] Cardiac Stress Test Signed Patient: Loy Tam MR#: [id number] : 1980 Acct:[id number] Age/Sex: 42 / F ADM Date: 05/30/23 Loc: ER Room: Type: [facility] ER Attending Dr: Copies to: DO Magy Hansen MD, [facility] Ordering Provider: Leonel Guerra DO Date of Service: 06/03/23 STR/STR cardiac stress/lexiscan: er stress CHEST PAIN ORDERED BY: Leonel Guerra DO INDICATIONS: A 42-year-old patient with chest pain. Resting ECG revealed sinus rhythm with a rate of 91 beats per minute. Resting blood pressure 145/90 mmHg. Following intravenous administration of 400 mcg of Lexiscan over 10 seconds, there were no ischemic EKG changes noted. The patient had symptoms of belching and nausea, which resolved spontaneously. No chest pain was reported by the patient. Heart rate recovery was normal. Cardiolite study followed. CONCLUSION: 1. No Lexiscan-induced ischemic EKG changes, chest pain or cardiac arrhythmias. 2. Mild nausea and belching induced by Lexiscan administration of no clinical significance. 3. Cardiolite studies to be reported separately by Nuclear Cardiology. Transcribed By: CAILIN 06/03/232034 Dictated By: Magy Donis MD, [facility] 06/03/23 1742 Signed By: 06/06/23 0911 [facility] Basic Metabolic Panelon 07-0 Anion gap [Moles/Vol] 10.2 mmol/L Normal 6.0-15.[address] [facility] Comment on above: Performed By: #### B MP, HS TROP, CBC #### [facility] [address] Calcium [Mass/Vol] 9.1 mg/dL Normal 8.6-10.3 [facility] Comment on above: Performed By: #### B MP, HS TROP, CBC #### [facility] [address] [place] [address] [place] Chloride [Moles/Vol] 106 mmol/L Normal 98-107 [facility] Comment on above: Performed By: #### B MP, HS TROP, CBC #### [facility] [address] CO2 [Moles/Vol] 29.3 mmol/L Normal 21.0-31.0 [facility] Comment on above: Performed By: #### B MP, HS TROP, CBC #### [facility] [address] Creatinine [Mass/Vol] 0.87 mg/dL Normal 0.60-1.20 [facility] Comment on above: Performed By: #### B MP, HS TROP, CBC #### [place] [address] [place] Creatinine Clr Calc Pharmacy 112.72 [facility] Comment on above: Result Comment: PERF ORMED BY: [place] [address] PATHOLOGIST INTERNAL WHOLESALER MARTY SALGADO M.D. Performed By: #### B MP, HS TROP, CBC #### [facility] [address] [place] [address] [place] GFR/1.73 sq M.predicted MDRD (S/P/Bld) [Vol rate/Area] mL/min/{1.73_m2} [facility] Comment on above: Performed By: #### B MP, HS TROP, CBC #### [facility] [address] [place] [address] [place] Glucose [Mass/Vol] 91 mg/dL Normal 70-100 [facility] Comment on above: Result Comment: [facility] Glucose Reference Range is dependent on time and content of last meal. Glucose of more than 200 mg/dL in a nonstressed, ambulatory subject supports the diagnosis of Diabetes Mellitus. ADA recommended reference range Performed By: #### B MP, HS TROP, CBC #### [facility] [address] Potassium [Moles/Vol] 3.5 mmol/L Normal 3.5-5.1 [facility] Comment on above: Performed By: #### B MP, HS TROP, CBC #### [facility] [address] [place] [address] [place] Sodium [Moles/Vol] 142 mmol/L Normal 136-145 [facility] Comment on above: Performed By: #### B MP, HS TROP, CBC #### [facility] [address] [place] [address] [place] Urea nitrogen [Mass/Vol] 9 mg/dL Normal 7-25 [facility] Comment on above: Performed By: #### B MP, HS TROP, CBC #### [facility] [address] [place] [address] [place] Basophils Auto (Bld) [#/Vol] Ordered By: Leonel Guerra on 05-31-2023 Basophils (Bld) [#/Vol] 0.1 10*3/uL 0.0-0.2 [facility] Basophils/100 WBC Auto (Bld) Ordered By: Leonel Guerra on 05-31-2023 Basophils/100 WBC (Bld) 1.5 % . [facility] Calcium [Mass/volume] in Ser um or PlasmaOrdered By: Leonel Guerra on 05-31-2023 Calcium [Mass/Vol] 9.1 mg/dL 8.6-10.3 [facility] Carbon dioxide, total [Moles /volume] in Serum or PlasmaOrdered By: Leonel Guerra on 05-31-2023 CO2 [Moles/Vol] 29.3 mmol/L 21.0-31.0 [facility] Chloride [Moles/volume] in S brian or PlasmaOrdered By: Leonel Guerra on 05-31-2023 Chloride [Moles/Vol] 106 mmol/L 98-107 [facility] Complete Blood Count Auto Di ffon 05-31-2023 Basophils (Bld) [#/Vol] 0.1 10*3/uL Normal 0.0-0.2 [facility] Comment on above: Result Comment: PERF ORMED BY: [place] [address] PATHOLOGIST INTERNAL WHOLESALER MARTY SALGADO M.D. Performed By: #### B MP, HS TROP, CBC #### [facility] [address] [place] [address] [place] Basophils/100 WBC (Bld) 1.5 % Normal . [facility] Comment on above: Performed By: #### B MP, HS TROP, CBC #### [facility] [address] [place] [address] [place] Eosinophils (Bld) [#/Vol] 0.3 10*3/uL Normal 0.0-0.45 [facility] Comment on above: Performed By: #### B MP, HS TROP, CBC #### [facility] [address] [place] [address] [place] Eosinophils/100 WBC (Bld) 3.5 % Normal . [facility] Comment on above: Performed By: #### B MP, HS TROP, CBC #### [facility] [address] [place] [address] Erythrocyte distribution width (RBC) [Ratio] 16.2 % High 11.9-15.3 [facility] Comment on above: Performed By: #### B MP, HS TROP, CBC #### [facility] [address] [place] [address] [place] Hematocrit (Bld) [Volume fraction] 38.8 % Normal 34.0-46.4 [facility] Comment on above: Performed By: #### B MP, HS TROP, CBC #### [facility] [address] Hemoglobin (Bld) [Mass/Vol] 12.4 g/dL Normal 11.8-15.4 [facility] Comment on above: Performed By: #### B MP, HS TROP, CBC #### [facility] [address] Lymphocytes (Bld) [#/Vol] 3.7 10*3/uL Normal 1.00-4.8 [facility] Comment on above: Performed By: #### B MP, HS TROP, CBC #### [facility] [address] Lymphocytes/100 WBC (Bld) 37.9 % Normal . [facility] Comment on above: Performed By: #### B MP, HS TROP, CBC #### [facility] [address] MCH (RBC) [Entitic mass] 23.0 pg Low 24.7-34.3 [facility] Comment on above: Performed By: #### B MP, HS TROP, CBC #### [address] MCV (RBC) [Entitic vol] 72.0 fL Low 80-100 [facility] Comment on above: Performed By: #### B MP, HS TROP, CBC #### [address] Mean Corpuscular HGB Conc 31.9 g/dL Low 32.0-35.0 [facility] Comment on above: Performed By: #### B MP, HS TROP, CBC #### [address] Monocytes (Bld) [#/Vol] 0.5 10*3/uL Normal 0.0-0.8 [facility] Comment on above: Performed By: #### B MP, HS TROP, CBC #### [place] [address] [place] Monocytes/100 WBC (Bld) 18.79 % Normal 0.00-20.00 [facility] Comment on above: Performed By: #### B MP, HS TROP, CBC #### [address] Monocytes/100 WBC (Bld) 5.1 % Normal . [facility] Comment on above: Performed By: #### B MP, HS TROP, CBC #### [facility] [address] Neutrophils (Bld) [#/Vol] 5.1 10*3/uL Normal 1.8-7.7 [facility] Comment on above: Performed By: #### B MP, HS TROP, CBC #### [facility] [address] Neutrophils/100 WBC (Bld) 52.0 % Normal . [facility] Comment on above: Performed By: #### B MP, HS TROP, CBC #### [facility] [address] NRBC% 0.2 /100{WBC} Normal 0-0.5 [facility] Comment on above: Performed By: #### B MP, HS TROP, CBC #### [address] Platelet mean volume (Bld) [Entitic vol] 7.3 fL Normal 6.3-10.7 [facility] Comment on above: Performed By: #### B MP, HS TROP, CBC #### [address] Platelets (Bld) [#/Vol] 349 10*3/uL Normal 150-450 [facility] Comment on above: Performed By: #### B MP, HS TROP, CBC #### [facility] [address] [place] [address] RBC (Bld) [#/Vol] 5.39 10*6/uL High 3.60-5.00 [facility] Comment on above: Performed By: #### B MP, HS TROP, CBC #### [address] WBC (Bld) [#/Vol] 9.9 10*3/uL Normal 3.8-11.6 [facility] Comment on above: Performed By: #### B MP, HS TROP, CBC #### [address] [place] [address] [facility] Creatinine [Mass/volume] in Serum or PlasmaOrdered By: Leonel Guerra on 05-31-2023 Creatinine [Mass/Vol] 0.87 mg/dL 0.60-1.20 [facility] ECG 12 lead ECGon 05-31-2023 ECG 12 lead ECG [facility] Main [place] [address] [place] [id number] Electrocardiograph Report Signed Patient: Loy Tam MR#: [id number] : 1980 Acct:[id number] Age/Sex: 42 / F ADM Date: 05/30/23 Loc: ER Room: Type: [facility] ER Attending Dr: Ordering Provider: Leonel Guerra DO Date of Service: 05/30/2302/17/2349 ECG/ECG 12 lead ECG: Chest Pain Copies to: Test Reason : Blood Pressure : 157/077 mmHG Vent. 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 [facility] Erythrocyte distribution wid th Auto (RBC) [Ratio]Ordered By: Leonel Guerra on 05-31-2023 Erythrocyte distribution width (RBC) [Ratio] 16.2 % 11.9-15.3 [facility] Glucose [Mass/volume] in Ser um or PlasmaOrdered By: Leonel Guerra on 05-31-2023 Glucose [Mass/Vol] 91 mg/dL 70-100 [facility] Comment on above: ADA recommended refe rence rangeRandom Glucose Reference Range is dependent on time and content of last meal. Glucose of more than 200 mg/dL in a nonstressed, ambulatory subject supports the diagnosis of Diabetes Mellitus. Hematocrit Auto (Bld) [Volum e fraction]Ordered By: Leonel Guerra on 05-31-2023 Hematocrit (Bld) [Volume fraction] 38.8 % 34.0-46.4 [facility] Hemoglobin [Mass/volume] in BloodOrdered By: Leonel Guerra on 05-31-2023 Hemoglobin (Bld) [Mass/Vol] 12.4 g/dL 11.8-15.4 [facility] Leukocytes [#/volume] correc abdias for nucleated erythrocytes in Blood by Automated counOrdered By: Leonel Guerra on 05-31-2023 WBC corrected for nucl RBC Auto (Bld) [#/Vol] 9.9 10*3/uL 3.8-11.6 [facility] Lymphocytes Auto (Bld) [#/Vo l]Ordered By: Leonel Guerra on 05-31-2023 Lymphocytes (Bld) [#/Vol] 3.7 10*3/uL 1.00-4.8 [facility] Lymphocytes/100 WBC Auto (Bl d)Ordered By: Leonel Guerra on 05-31-2023 Lymphocytes/100 WBC (Bld) 37.9 % . [facility] MCH Auto (RBC) [Entitic mass ]Ordered By: Leonel Guerra on 05-31-2023 MCH (RBC) [Entitic mass] 23.0 pg 24.7-34.3 [facility] MCHC Auto (RBC) [Mass/Vol]Or dered By: Leonel Guerra on 05-31-2023 MCHC (RBC) [Mass/Vol] 31.9 g/dL 32.0-35.0 [facility] MCV Auto (RBC) [Entitic vol] Ordered By: Leonel Guerra on 05-31-2023 MCV (RBC) [Entitic vol] 72.0 fL 80-100 [facility] Monocyte distribution width [Entitic volume] in Blood by AutomatedOrdered By: Leonel Guerra on 05-31-2023 Monocyte distribution width Auto (Bld) [Entitic vol] 18.79 % 0.00-20.00 [facility] Monocytes Auto (Bld) [#/Vol] Ordered By: Leonel Guerra on 05-31-2023 Monocytes (Bld) [#/Vol] 0.5 10*3/uL 0.0-0.8 [facility] Monocytes/100 WBC Auto (Bld) Ordered By: Leonel Guerra on 05-31-2023 Monocytes/100 WBC (Bld) 5.1 % . [facility] Neutrophils Auto (Bld) [#/Vo l]Ordered By: Leonel Guerra on 05-31-2023 Neutrophils (Bld) [#/Vol] 5.1 10*3/uL 1.8-7.7 [facility] Neutrophils/100 WBC Auto (Bl d)Ordered By: Leonel Guerra on 05-31-2023 Neutrophils/100 WBC (Bld) 52.0 % . [facility] No Panel InformationOrdered By: Leonel Guerra on 05-31-2023 Estimated GFR (CKD-EPI) > 60.0 mL/Min [facility] Creatinine Clearance (Chem 112.72 [facility] Nucleated erythrocytes [Pres ence] in Blood by Automated countOrdered By: Leonel Guerra on 05-31-2023 Nucleated RBC Auto Ql (Bld) 0.2 /100{WBC} 0-0.5 [facility] Platelet mean volume Auto (B ld) [Entitic vol]Ordered By: Leonel Guerra on 05-31-2023 Platelet mean volume (Bld) [Entitic vol] 7.3 fL 6.3-10.7 [facility] Platelets Auto (Bld) [#/Vol] Ordered By: Leonel Guerra on 05-31-2023 Platelets (Bld) [#/Vol] 349 10*3/uL 150-450 [facility] Potassium [Moles/volume] in Serum or PlasmaOrdered By: Leonel Guerra on 05-31-2023 Potassium [Moles/Vol] 3.5 mmol/L 3.5-5.1 [facility] RBC Auto (Bld) [#/Vol]Ordere d By: Leonel Guerra on 05-31-2023 RBC (Bld) [#/Vol] 5.39 10*6/uL 3.60-5.00 [facility] Serum or plasma anion gap de terminationOrdered By: Leonel Guerra on 05-31-2023 Anion gap [Moles/Vol] 10.2 mmol/L 6.0-15.[address] [facility] Sodium [Moles/volume] in Ser um or PlasmaOrdered By: Leonel Guerra on 05-31-2023 Sodium [Moles/Vol] 142 mmol/L 136-145 [facility] Troponin I High Sensitivityo n 05-31-2023 Troponin I High Sensitivity 5.9 pg/mL Normal 0.0-15.0 [facility] Comment on above: Result Comment: PERF ORMED BY: [place] [address] PATHOLOGIST INTERNAL WHOLESALER MARTY SALGADO M.D. Performed By: #### B MP, HS TROP, CBC #### [facility] [address] [place] [address] Troponin I High Sensitivity 6.5 pg/mL Normal 0.0-15.0 [facility] Comment on above: Result Comment: PERF ORMED BY: [place] [address] PATHOLOGIST INTERNAL WHOLESALER MARTY SALGADO M.D. Performed By: #### B MP, HS TROP, CBC #### [facility] [address] [place] [address] Troponin I.cardiac [Mass/vol ume] in Serum or Plasma by Detection limit <= 0.01 ng/Ordered By: Leonel Guerra on 05-31-2023 Troponin I.cardiac DL <= 0.01 ng/mL [Mass/Vol] 5.9 pg/mL 0.0-15.0 [facility] Urea nitrogen [Mass/volume] in Serum or PlasmaOrdered By: Leonel Guerra on 05-31-2023 Urea nitrogen [Mass/Vol] 9 mg/dL 7-25 [facility] WBC Auto (Bld) [#/Vol]Ordere d By: Leonel Guerra on 05-31-2023 WBC (Bld) [#/Vol] 9.9 10*3/uL 3.8-11.6 [facility] XR chest 2V*on 05-31-2023 XR chest 2V* [facility] Main [address] [address] XRay Report Signed Patient: Loy Tam MR#: [id number] : 1980 Acct:[id number] Age/Sex: 42 / F ADM Date: 05/30/23 Loc: ER Room: Type: [facility] ER Attending Dr: Copies to: Leonel Guerra DO Ordering Provider: Leonel Guerra DO Date of Service: 05/31/23 XR/XR chest 2V*: Chest Pain Plain film chest 2 view HISTORY: Chest pain. Left arm pain COMPARISON: 10/30/2021 FINDINGS: SUPPORT DEVICES: None POSTSURGICAL CHANGES: None HEART: Within normal limits PULMONARY JAJA: Within normal limits MEDIASTINUM: Unremarkable LUNGS AND PLEURA: No acute lung process, pleural effusion or pneumothorax identified. BONY STRUCTURES: Thoracic hyperostosis. ADDITIONAL FINDINGS None XR/XR chest 2V* IMPRESSION: No acute process. Impression dictated by: Ancelmo Castellano M.D.05/31/2023 8:23 AM Dictation Location: [place] [address] Transcribed By: [facility] 05/31/23822 Dictated By: Ancelmo Castellano DO 05/31/23822 Signed By: 05/31/2323 Normal [facility] XR wrist LT min 3V*on 2022 XR wrist LT min 3V* [facility] Main [address] [address] XRay Report Signed Patient: Loy Tam MR#: [id number] : 1980 Acct:[id number] Age/Sex: 42 / F ADM Date: 04/18/23 Loc: ER Room: Type: PRE ER Attending Dr: Copies to: Agustin Sandra APRN Ordering Provider: Agustin Sandra APRN Date of Service: 04/18/23 XR/XR wrist LT min 3V*: Fall XR wrist LT min 3V* 04/18/2023 12:52 PM SIGNS AND SYMPTOMS: Fall downstairs with pain along the left wrist PROTOCOL: Frontal, lateral, and oblique radiographs of the left wrist COMPARISON: 07/06/2022 FINDINGS: The bones are in anatomic alignment. There is no evidence of acute displaced fracture. No dislocation or subluxation. No significant soft tissue swelling. Mild degenerative changes are noted at the base of the thumb. Degenerative changes are also noted at the junction of the lunate and triquetrum. XR/XR wrist LT min 3V* IMPRESSION: No acute displaced fracture. No significant soft tissue swelling. Mild degenerative changes are noted, as above. Impression dictated by: Alan Matta M.D.04/18/2023 1:04 PM Dictation Location: [place] [address] Transcribed By: [facility] 04/18/23 1304 Dictated By: Alan Matta II, MD 04/18/23 1302 Signed By: 04/18/23 1304 Normal [facility] Monoteston 01-19-2023 Monotest Negative Normal Negative [facility] Comment on above: Result Comment: PERF ORMED BY: [place] [address] PATHOLOGIST INTERNAL WHOLESALER MARTY SALGADO M.D. Performed By: #### M ONOTEST #### [address] Quick Strepon 01-19-2023 Quick Strep Streptococcus pyogenes Ag [Presence] in Throat by Rapid immunoassay Negative for Group A Strep Antigen Note 1 NOTE 2 Results are those of a screening test. NOTE 3 If clinically indicated please order a culture. NOTE 4 NOTE 5 Reference range = Negative PERFORMED BY: [place] [address] PATHOLOGIST INTERNAL WHOLESALER MARTY SALGADO M.D. Normal [facility] Comment on above: Performed By: #### Q S #### [address] Serum heterophile antibody d etection by latex agglutinationOrdered By: Arnoldo Pérez on 01-19-2023 Heterophile Ab LA Ql (S) Negative Negative [facility] Streptococcus pyogenes antig en detectionOrdered By: Arnoldo Pérez on 01-19-2023 S. pyogenes Ag Ql (Unsp spec) [facility] COVID CepheidOrdered By: Radha Cooper on 01-08-2023 SARS-CoV-2 (COVID-19) Ab IA Ql Negative Negative [facility] Comment on above: This is a duplicate Cepheid Xpert Xpress CoV-2/Flu/RSV Plus RNA by RT-PCR result to be used for statistical tracking purpose only. SARS-CoV-2 (COVID-19) RNA AMBROSE+probe Ql (Unsp spec) [facility] COVID-19 / Flu A/B / RSV PCR on 01-08-2023 SARS-CoV-2 (COVID-19) RNA AMBROSE+probe Ql (Unsp spec) COVID-19 Cepheid Result Negative for SARS-CoV-2 RNA by RT-PCR Flu A Cepheid Result Negative for Flu A RNA by RT-PCR Flu B Cepheid Result Negative for Flu B RNA by RT-PCR RSV Cepheid Result Negative for RSV RNA by RT-PCR COVID19 Blank Space Reference: Negative COVID19 Blank Space Cepheid Disclaimer The Cepheid Xpert Xpress CoV-2/Flu/RSV Plus has Cepheid Disclaimer not been FDA cleared or approved; this test has Cepheid Disclaimer been authorized by FDA under an EUA for use by Cepheid Disclaimer authorized laboratories; this test has been Cepheid Disclaimer authorized only for the simultaneous qualitative Cepheid Disclaimer detection and differentiation of nucleic acids from Cepheid Disclaimer SARS-CoV-2, influenza A, influenza B, and Cepheid Disclaimer respiratory syncytial virus (RSV), and not for any Cepheid Disclaimer other viruses or pathogens; and this test is only Cepheid Disclaimer authorized for the duration of the declaration that Cepheid Disclaimer circumstances exist justifying the authorization of Cepheid Disclaimer emergency use of in vitro diagnostic tests for Cepheid Disclaimer detection and/or diagnosis of COVID-19 under Cepheid Disclaimer Section 564(b)(1) of the Act, 21 U.S.C. 360bbb- Cepheid Disclaimer 3(b)(1), unless the authorization is terminated or Cepheid Disclaimer revoked sooner. PERFORMED BY: [place] [address] PATHOLOGIST INTERNAL WHOLESALER MARTY SALGADO M.D. Normal [facility] Comment on above: Performed By: #### C OVID19 FLU RSV, QS, CEPHEID NEG #### [address] Cepheid COVID PCR Negativeon 01-08-2023 SARS-CoV-2 (COVID-19) RNA AMBROSE+probe Ql (Unsp spec) Negative Normal Negative [facility] Comment on above: Result Comment: This is a duplicate Cepheid Xpert Xpress CoV-2/Flu/RSV Plus RNA by RT-PCR result to be used for statistical tracking purpose only. PERFORMED BY: [place] [address] PATHOLOGIST INTERNAL WHOLESALER MARTY SALGADO M.D. Performed By: #### C OVID19 FLU RSV, QS, CEPHEID NEG #### [place] [id number] [place] Quick Strepon 01-08-2023 Quick Strep Streptococcus pyogenes Ag [Presence] in Throat by Rapid immunoassay Negative for Group A Strep Antigen Note 1 NOTE 2 Results are those of a screening test. NOTE 3 If clinically indicated please order a culture. NOTE 4 NOTE 5 Reference range = Negative PERFORMED BY: [place] [address] PATHOLOGIST INTERNAL WHOLESALER MARTY SALGADO M.D. [facility] Comment on above: Performed By: #### C OVID19 FLU RSV, QS, CEPHEID NEG #### [facility] [address] [place] [address] Quick Strepon 01-04-2023 Quick Strep Streptococcus pyogenes Ag [Presence] in Throat by Rapid immunoassay Negative for Group A Strep Antigen Note 1 NOTE 2 Results are those of a screening test. NOTE 3 If clinically indicated please order a culture. NOTE 4 NOTE 5 Reference range = Negative PERFORMED BY: [place] [address] PATHOLOGIST INTERNAL WHOLESALER MARTY SALGADO M.D. [facility] Comment on above: Performed By: #### Q S #### [facility] [address] [place] [address] Streptococcus pyogenes antig en detectionOrdered By: Caitlyn Cooper on 01-04-2023 S. pyogenes Ag Ql (Unsp spec) [facility] COVID CepheidOrdered By: Cachorro Breaux on 11-17-2022 SARS-CoV-2 (COVID-19) Ab IA Ql Negative Negative [facility] Comment on above: This is a duplicate Collectric Xpert Xpress CoV-2/Flu/RSV Plus RNA by RT-PCR result to be used for statistical tracking purpose only. SARS-CoV-2 (COVID-19) RNA AMBROSE+probe Ql (Unsp spec) [facility] SARS-CoV-2 (COVID-19) RNA AMBROSE+probe Ql (Unsp spec) [facility] COVID-19 SOFIAOrdered By: Jose Pearl on 08-23-2022 SARS-CoV+SARS-CoV-2 (COVID-19) Ag IA.rapid Ql (Resp) Negative Negative [facility] Comment on above: This is a duplicate Lilibeth SARS Antigen (REGINO) result to be used for statistical tracking purpose only. No Panel InformationOrdered By: Praveen Pearl on 08-23-2022 SARS Antigen (LFIA) [facility] POINT OF CARE GLUCOSEon 05-0 Glucose [Mass/Vol] 116 mg/dL Critically high 74-106 [facility] Comment on above: Performed By: #### P OCGLUC #### [facility] [address] [place] [address] [address] Mai Salamanca PREG HCG QUALon 03-30-2022 , QUAL Negative Normal NEGATIVE [facility] Comment on above: Performed By: #### P REG #### [facility] [address] [place] [address] [address] Mai Salamanca Vital Signs Date Time Vital Sign Value Performing Clinician Facility 07-01-2023 11:53-0400 Diastolic blood pressure 85 mm[Hg] Services [facility] Work Phone: [facility] 07-01-2023 11:53-0400 Heart rate 92 /min Services [facility] Work Phone: [facility] 07-01-2023 11:53-0400 Systolic blood pressure 149 mm[Hg] Services [facility] Work Phone: [facility] 07-01-2023 09:37-0400 Body height 176.53 cm [facility] Work Phone: [facility] 07-01-2023 09:37-0400 Body temperature 99.3 [degF] [facility] Work Phone: [facility] 07-01-2023 09:37-0400 Body weight 122.46 kg [facility] Work Phone: [facility] 07-01-2023 09:37-0400 Respiratory rate 24 /min [facility] Work Phone: [facility] 07-01-2023 09:37-0400 SaO2% (BldA) [Mass fraction] 99 % [facility] Work Phone: [facility] 06-19-2023 00:00-0400 Diastolic blood pressure 61 mm[Hg] [facility] Work Phone: [facility] 06-19-2023 00:00-0400 Heart rate 71 /min [facility] Work Phone: [facility] 06-19-2023 00:00-0400 Respiratory rate 20 /min [facility] Work Phone: [facility] 06-19-2023 00:00-0400 SaO2% (BldA) [Mass fraction] 100 % [facility] Work Phone: [facility] 06-19-2023 00:00-0400 Systolic blood pressure 129 mm[Hg] [facility] Work Phone: [facility] 06-18-2023 21:21-0400 Body height 175.26 cm [facility] Work Phone: [facility] 06-18-2023 21:21-0400 Body weight 117.02 kg [facility] Work Phone: [facility] 06-18-2023 21:20-0400 Body temperature 98.6 [degF] [facility] Work Phone: [facility] 06-03-2023 11:58-0400 Diastolic blood pressure 90 mm[Hg] [facility] Work Phone: [facility] 06-03-2023 11:58-0400 Heart rate 91 /min [facility] Work Phone: [facility] 06-03-2023 11:58-0400 Systolic blood pressure 145 mm[Hg] [facility] Work Phone: [facility] 05-31-2023 04:30-0400 Diastolic blood pressure 82 mm[Hg] [facility] Work Phone: [facility] 05-31-2023 04:30-0400 Heart rate 75 /min [facility] Work Phone: [facility] 05-31-2023 04:30-0400 Respiratory rate 20 /min [facility] Work Phone: [facility] 05-31-2023 04:30-0400 SaO2% (BldA) [Mass fraction] 98 % [facility] Work Phone: [facility] 05-31-2023 04:30-0400 Systolic blood pressure 150 mm[Hg] [facility] Work Phone: [facility] 05-30-2023 23:32-0400 Body height 176.53 cm [facility] Work Phone: [facility] 05-30-2023 23:32-0400 Body temperature 98.2 [degF] [facility] Work Phone: [facility] 05-30-2023 23:32-0400 Body weight 117.02 kg [facility] Work Phone: [facility] 04-18-2023 12:10-0400 Body temperature 98.2 [degF] [facility] Work Phone: [facility] 04-18-2023 12:10-0400 Diastolic blood pressure 91 mm[Hg] [facility] Work Phone: [facility] 04-18-2023 12:10-0400 Heart rate 86 /min [facility] Work Phone: [facility] 04-18-2023 12:10-0400 Respiratory rate 18 /min [facility] Work Phone: [facility] 04-18-2023 12:10-0400 SaO2% (BldA) [Mass fraction] 100 % [facility] Work Phone: [facility] 04-18-2023 12:10-0400 Systolic blood pressure 169 mm[Hg] [facility] Work Phone: [facility] 04-18-2023 12:06-0400 Body height 175.26 cm [facility] Work Phone: [facility] 04-18-2023 12:06-0400 Body weight 129.1 kg [facility] Work Phone: [facility] 01-19-2023 09:40-0500 Diastolic blood pressure 67 mm[Hg] [facility] Work Phone: [facility] 01-19-2023 09:40-0500 Heart rate 86 /min [facility] Work Phone: [facility] 01-19-2023 09:40-0500 Respiratory rate 20 /min [facility] Work Phone: [facility] 01-19-2023 09:40-0500 SaO2% (BldA) [Mass fraction] 100 % [facility] Work Phone: [facility] 01-19-2023 09:40-0500 Systolic blood pressure 145 mm[Hg] [facility] Work Phone: [facility] 01-19-2023 07:19-0500 Body height 175.26 cm [facility] Work Phone: [facility] 01-19-2023 07:19-0500 Body temperature 98 [degF] [facility] Work Phone: [facility] 01-19-2023 07:19-0500 Body weight 127.3 kg [facility] Work Phone: [facility] 01-08-2023 14:52-0500 Body height 176.53 cm [facility] Work Phone: [facility] 01-08-2023 14:52-0500 Body temperature 98.9 [degF] [facility] Work Phone: [facility] 01-08-2023 14:52-0500 Body weight 124.45 kg [facility] Work Phone: [facility] 01-08-2023 14:52-0500 Diastolic blood pressure 74 mm[Hg] [facility] Work Phone: [facility] 01-08-2023 14:52-0500 Heart rate 93 /min [facility] Work Phone: [facility] 01-08-2023 14:52-0500 Respiratory rate 20 /min [facility] Work Phone: [facility] 01-08-2023 14:52-0500 SaO2% (BldA) [Mass fraction] 98 % [facility] Work Phone: [facility] 01-08-2023 14:52-0500 Systolic blood pressure 143 mm[Hg] [facility] Work Phone: [facility] 01-04-2023 11:34-0500 Body height 175.26 cm [facility] Work Phone: [facility] 01-04-2023 11:34-0500 Body temperature 98.7 [degF] [facility] Work Phone: [facility] 01-04-2023 11:34-0500 Body weight 107.9 kg [facility] Work Phone: [facility] 01-04-2023 11:34-0500 Diastolic blood pressure 91 mm[Hg] [facility] Work Phone: [facility] 01-04-2023 11:34-0500 Heart rate 98 /min [facility] Work Phone: [facility] 01-04-2023 11:34-0500 Respiratory rate 18 /min [facility] Work Phone: [facility] 01-04-2023 11:34-0500 SaO2% (BldA) [Mass fraction] 100 % [facility] Work Phone: [facility] 01-04-2023 11:34-0500 Systolic blood pressure 165 mm[Hg] [facility] Work Phone: [facility] 11-17-2022 02:32-0500 Diastolic blood pressure 98 mm[Hg] [facility] Work Phone: [facility] 11-17-2022 02:32-0500 Heart rate 92 /min [facility] Work Phone: [facility] 11-17-2022 02:32-0500 Respiratory rate 18 /min [facility] Work Phone: [facility] 11-17-2022 02:32-0500 SaO2% (BldA) [Mass fraction] 98 % [facility] Work Phone: [facility] 11-17-2022 02:32-0500 Systolic blood pressure 168 mm[Hg] [facility] Work Phone: [facility] 11-16-2022 23:12-0500 Body height 176.53 cm [facility] Work Phone: [facility] 11-16-2022 23:12-0500 Body weight 126.35 kg [facility] Work Phone: [facility] 11-16-2022 23:11-0500 Body temperature 98.1 [degF] [facility] Work Phone: [facility] 09-17-2022 23:07-0400 Body height 175.26 cm [facility] Work Phone: [facility] 09-17-2022 23:07-0400 Body temperature 98.2 [degF] Services [facility] Work Phone: [facility] 09-17-2022 23:07-0400 Body weight 124.25 kg Services [employer] Work Phone: [facility] 09-17-2022 23:07-0400 Diastolic blood pressure 70 mm[Hg] Services [facility] [employer] Work Phone: [facility] 09-17-2022 23:07-0400 Heart rate 75 /min Services [employer] Work Phone: [facility] 09-17-2022 23:07-0400 Respiratory rate 18 /min Services [facility] Work Phone: [facility] 09-17-2022 23:07-0400 SaO2% (BldA) [Mass fraction] 94 % Services [facility] Work Phone: [facility] 09-17-2022 23:07-0400 Systolic blood pressure 153 mm[Hg] Services [facility] [employer] Work Phone: [facility] 08-23-2022 07:17-0400 Body height 175.26 cm DO Clyde Visci Work Phone: [facility] 08-23-2022 07:17-0400 Body temperature 98.2 [degF] DO Clyde Visci Work Phone: [facility] 08-23-2022 07:17-0400 Body weight 110.22 kg DO Clyde Visci Work Phone: [facility] 08-23-2022 07:17-0400 Diastolic blood pressure 75 mm[Hg] DO Clyde Visci Work Phone: [facility] 08-23-2022 07:17-0400 Heart rate 83 /min DO Clyde Visci Work Phone: [facility] 08-23-2022 07:17-0400 Respiratory rate 18 /min DO Clyde Visci Work Phone: [facility] 08-23-2022 07:17-0400 SaO2% (BldA) [Mass fraction] 100 % DO Clyde Visci Work Phone: [facility] 08-23-2022 07:17-0400 Systolic blood pressure 145 mm[Hg] DO Clyde Visci Work Phone: [facility] 07-13-2022 12:00-0400 Body height 175.26 cm Gabriel Olexa [facility] [employer] Other 07-13-2022 12:00-0400 Body mass index (BMI) [Ratio] 39.13 kg/m2 Gabriel Olexa Other [facility] Other 07-13-2022 12:00-0400 Body weight 120.2 kg Gabriel Olexa Other [facility] [employer] Other 07-06-2022 21:44-0400 Body height 176.53 cm DO Clyde Visci Work Phone: [facility] 07-06-2022 21:44-0400 Body weight 112.49 kg DO Clyde Visci Work Phone: [facility] 07-06-2022 21:43-0400 Body temperature 98.2 [degF] DO Clyde Visci Work Phone: [facility] 07-06-2022 21:43-0400 Diastolic blood pressure 72 mm[Hg] DO Clyde Visci Work Phone: [facility] 07-06-2022 21:43-0400 Heart rate 93 /min DO Clyde Visci Work Phone: [facility] 07-06-2022 21:43-0400 Respiratory rate 17 /min DO Clyde Visci Work Phone: [facility] 07-06-2022 21:43-0400 SaO2% (BldA) [Mass fraction] 100 % DO Clyde Visci Work Phone: [facility] 07-06-2022 21:43-0400 Systolic blood pressure 135 mm[Hg] DO Clyde Aguilera Work Phone: [facility] 2019 13:18-0500 BMI (Body Mass Index) 40.2 kg/m2 Clyde [facility] 2019 13:18-0500 Body Temperature 98.2 [degF] [facility] 13:18-[facility] Body weight 127.3 kg Clyde [facility] 2019 13:18-0500 BP Diastolic 81 mm[Hg] Clyde [facility] 2019 13:18-0500 BP Systolic 143 mm[Hg] Clyde [facility] 2019 13:18-0500 Height 177.8 cm Clyde [facility] 2019 13:18-0500 Pulse (Heart Rate) 88 /min Clyde [facility] 2019 13:18-0500 Pulse Oximetry 99 % [facility] 2019 13:18-0500 Respiratory Rate 17 /min Clyde [facility] Encounters Encounter Date Encounter Type Care Provider Facility Start: 12-02-2023 End: 12-02-2023 ambulatory Services [facility] Start: 12-02-2023 End: 12-02-2023 ambulatory Services [facility] Work Phone: [facility] Work Phone: Start: 12-02-2023 End: 12-02-2023 Patient encounter procedure Services [facility] Work Phone: [facility] Work Phone: Start: 10-07-2023 End: 10-07-2023 ambulatory Services [facility] Start: 10-07-2023 End: 10-07-2023 ambulatory Services [facility] Work Phone: [facility] Work Phone: Start: 10-07-2023 End: 10-07-2023 Patient encounter procedure Services [facility] Work Phone: [facility] [place] Work Phone: Start: 08-09-2023 End: 08-09-2023 ambulatory Services [facility] Start: 08-09-2023 End: 08-09-2023 ambulatory Services [facility] Work Phone: [facility] Work Phone: Start: 08-09-2023 End: 08-09-2023 Patient encounter procedure Services [facility] Work Phone: [facility] Work Phone: Start: 07-13-2023 End: 07-13-2023 ambulatory Services [facility] Start: 07-13-2023 End: 07-13-2023 ambulatory Services [facility] Work Phone: [facility] Work Phone: Start: 07-13-2023 End: 07-13-2023 Patient encounter procedure Services [facility] Work Phone: [facility] [place] Work Phone: Start: 07-01-2023 End: 07-01-2023 Emergency department patient visit Services [facility] Start: 07-01-2023 End: 07-01-2023 Emergency department patient visit Services [facility] Work Phone: [facility] Work Phone: Start: 06-18-2023 End: 06-19-2023 Emergency department patient visit Services [facility] Start: 06-18-2023 End: 06-19-2023 Emergency department patient visit Services [facility] Work Phone: [facility] Work Phone: Start: 06-14-2023 Office outpatient visit 15 minutes [facility] Start: 06-14-2023 End: 06-14-2023 ambulatory Services [facility] Other Start: 06-14-2023 End: 06-14-2023 Patient encounter procedure Services [facility] Work Phone: [facility] Start: 06-03-[address] Marcos Gregory Facility:[id number] Start: 05-31-2023 End: 05-31-2023 Emergency department patient visit Leonel Guerra Facility:[facility] Start: 05-30-2023 End: 05-31-2023 Emergency department patient visit Services [facility] Work Phone: [facility] Work Phone: Start: 05-12-2023 ambulatory ANGEL SWAIN . Facility:[facility] Start: 04-18-2023 End: 04-18-2023 Emergency department patient visit Agustin Sandra Facility:[facility] Start: 04-18-2023 End: 04-18-2023 Emergency department patient visit Services [facility] Work Phone: [facility] Work Phone: Start: 02-10-2023 End: 02-11-[address] UZAIR LIGHT . Facility:[facility] Start: 01-19-2023 End: 01-19-2023 Emergency department patient visit Services [facility] Start: 01-19-2023 End: 01-19-2023 Emergency department patient visit Services [facility] Work Phone: [facility] Work Phone: Start: 01-08-2023 End: 01-08-2023 Emergency department patient visit Services [facility] Start: 01-08-2023 End: 01-08-2023 Emergency department patient visit Services [facility] Work Phone: [facility] Work Phone: Start: 01-04-2023 End: 01-04-2023 Emergency department patient visit Services [facility] Start: 01-04-2023 End: 01-04-2023 Emergency department patient visit Services Family [facility] Work Phone: [facility] Work Phone: Start: 11-16-2022 End: 11-17-2022 Emergency department patient visit Services [facility] Work Phone: [facility] Start: 11-04-2022 End: 11-05-[address] UZAIR LIGHT . Facility:[facility] Start: 10-12-2022 End: 10-12-2022 Patient encounter procedure Services [facility] Work Phone: [facility] [place] [facility] Start: 09-17-2022 End: 09-18-2022 Emergency department patient visit Services [facility] Work Phone: [facility] Start: 08-23-2022 End: 08-23-2022 Emergency department patient visit DO Clyde Visci Work Phone: [facility] Start: 08-18-2022 End: 08-18-2022 Patient encounter procedure DO Clyde Visci Work Phone: [facility] [address] Start: 07-13-2022 End: 07-13-2022 ambulatory Gabriel Rosenberg Other [employer] Other Start: 07-13-2022 Office outpatient ne w 45 minutes Gabriel Rosenberg [facility] Start: 07-08-2022 End: 07-09-[address] UZAIR LIGHT . Facility:[facility] Start: 07-06-2022 End: 07-06-2022 Emergency department patient visit DO Clyde Visci Work Phone: [facility] Start: 04-15-2022 End: 04-16-[address] UZAIR LIGHT . Facility:[facility] Start: 03-30-2022 End: 03-30-[address] UZAIR LIGHT . Facility:[facility] Start: 01-08-2020 End: 01-08-2020 Patient encounter procedure Clyde Aguilera -[facility]tras[facility] [place] Start: 2019 End: 2019 Emergency department patient visit Clyde Aguilera -Emergency Room Start: 09-17-2019 End: 09-17-2019 Emergency department patient visit Clyde Aguilera -Emergency Room Start: 12-26-2018 End: 12-26-2018 Patient encounter procedure Clyde Aguilera -XRay [address] Start: 02-02-2005 Evaluation and management of inpatient Clyde Aguilera -[facility] Post Procedures Date Procedure Procedure Detail Performing Clinician Start: 12-02-2023 Screening mammograph y of bilateral breasts [facility] Phone: Start: 06-18-2023 CT of head without contrast [facility] Phone: Start: 06-18-2023 Plain X-ray of left shoulder [facility] Phone: Start: 06-14-2023 Plain X-ray of left wrist [facility] Phone: Start: 06-03-2023 Radionuclide myocard ial perfusion stress study [facility] Phone: Start: 05-31-2023 Plain chest X-ray Servi rahcel [facility] Phone: Start: 04-18-2023 Plain X-ray of left wrist [facility] Phone: Start: 01-19-2023 Streptococcus pyogen es antigen assay [facility] Phone: Start: 01-08-2023 SARS-CoV-2, Influenz a & RSV (PCR) [facility] Phone: Start: 01-04-2023 Streptococcus pyogen es antigen assay [facility] Phone: Start: 11-17-2022 SARS-CoV-2, Influenz a & RSV (PCR) [facility] Phone: Start: 10-12-2022 X-ray of left ankle Ser vices [facility] Phone: Start: 08-18-2022 MRI of right knee DO Ri gael Yehi Work Phone: Start: 07-06-2022 Plain X-ray of left wrist DO Clyde Visci Work Phone: Start: 07-06-2022 X-ray of right knee DO Clyde Yehi Work Phone: Start: 01-08-2020 Duplex scan of lower limb veins Clyde Aguilera Start: 2019 X-ray of left ankle Giovanni hard Visci H/O: section S/P DO Ri gael Yehi Work Phone: SARS Antigen (LFIA) DO Karen fowler [facility]isc[facility] Work Phone: SARS-CoV-2, Influenz a & RSV (PCR) Services [facility] Work Phone: Plan of Treatment Date Care Activity Detail Author Start: 06-18-2023 CT of head without contrast CT head/ brain wo con [facility] Start: 06-18-2023 CT Unspecified body region WO contrast [facility] Start: 06-18-2023 Plain X-ray of left shoulder XR shoulder LT min 2V* [facility] Start: 06-18-2023 XR Shoulder - left Views [facility] Start: 05-31-2023 [facility] Start: 05-31-2023 Plain chest X-ray XR chest 2V* [facility] Start: 05-31-2023 XR Chest 2 Views [facility] Cardiovascular stres s testing [facility] Patient Education [facility] Patient referral [facility] Immunizations Immunization Date Immunization Notes Care Provider Fa macy 12-10-2018 tetanus toxoid, redu nissa diphtheria toxoid, and acellular pertussis vaccine, adsorbed Clyde Aguilera [facility] Payers Date Payer Category Payer Self-pay [id number] 2022 Medicaid [id number] 1978 Unknown [id number] [id number] 93 1978 Unknown [id number] 2.16840.1.664960.3.579.2.5 93 1978 Unknown [id number] 2.16.840.1.595337.3.579.2.5 93 1978 Unknown [id number] 2.16840.1.691267.3.579.2.5 93 1978 Unknown [id number] 2.840.1.923180.3.579.2.5 93 1978 Unknown [id number] 2.840.1.232643.3.579.2.5 93 1978 Unknown [id number] 2.840.1.433935.3.579.2.3 56 1959 Medicare [id number] 1959 Unknown [id number] Private Health Insurance [id number] Unknown Self Pay [id number] Unknown Regular Auto/Liability [id number] Unknown [id number] 31 Unknown [id number] 2.840.1.000308.3.579.2.5 31 Unknown [id number] 2.840.1.565751.3.579.2.5 31 Unknown [id number] 2.840.1.261345.3.579.2.5 31 Unknown [id number] 2.840.1.289239.3.579.2.5 31 Unknown [id number] 2840.1.457746.3.579.2.5 31 Unknown [id number] 2.16.840.1.374867.3.579.2.5 31 Unknown [id number] 2.16.840.1.171607.3.579.2.5 31 Unknown [id number] 2.16.840.1.390838.3.579.2.5 31 Unknown [id number] 2.16.840.1.391653.3.579.2.5 31 Unknown [id number] 2.16.840.1.130719.3.579.2.5 31 Unknown [id number] 2.16.840.1.216523.3.579.2.5 31 Social History Date Type Detail Facility Start: 2019 End: 01-19-2023 Tobacco smoking status TNIS Ex-smoker (finding) [facility] Start: 1980 Sex Assigned At Female F [facility] Sex Assigned At Sex Assigned At Bir th [facility] [employer] Other Start: 07-06-2022 End: 07-01-2023 Tobacco smoking status TNIS Never smoked tobacco (finding) [facility] Goals Date Patient Goal Desired Activity /State Clinical Notes 04-15-2022 to 06-14-2023 Note Date & Type Note Facility 06-14-2023 Evaluation note Encounter Date Diagnosis Assessment Notes May, Acute pain of left wrist (ICD-10 - M25.532) May, Tendinitis, de Quervain's (ICD-10 - M65.4) X-rays were reviewed with patient in detail. We discussed bracing the wrist. We could inject the area with cortisone. Occupational therapy could assist in providing relief. Should conservative measures fail we could further discuss a surgery. We performed a 1/1cc marcaine / kenalog cortisone injection into the first dorsal wrist compartment under sterile technique. Patient tolerated the injection well without adverse reaction. May, Right carpal tunnel syndrome (ICD-10 - G56.01) We discussed injecting the area at the next visit if symptoms persist. We also discussed a carpal tunnel release. [employer] Other 03-16-2023 NoteCONSULTATION CONSULTATION DATE: 02/10/2023 HISTORY: This is a 42-year-old female who returns to the clinic for a three month follow up for chronic pain to her left ankle. Patient has had multiple procedures to her ankle and foot, and has hardware placed, including rods and pins. She is currently under the care of Dr. Garcia. Today she rates her pain a 6/10. She is also complaining of some lower back spasming. She fell 10 days ago as well as two months ago. She does have a Sleep Number bed at home, which does help and elevate both legs and back, and she is using conservative measures, including heat and stretching to help decrease her pain. Twisting, pushing, pulling, standing, walking, stairs and lifting aggravate her pain to her back and her ankle. Medications include Percocet 5/325 t.i.d., 5% lidocaine patch twice a day to her left leg, Vistaril and gabapentin 300 mg a.m. , 200 mg evening and 300 mg at h.s. Patient is also complaining of sharp shooting pains from her ankle, ascending up her leg. There is nothing in particular that brings it on. Patient's REVIEW OF SYSTEMS / PAST MEDICAL HISTORY / ALLERGIES and IMAGES have been reviewed and noted on the chart. PHYSICAL EXAM: VITAL SIGNS: Heart rate is 93. Temperature is 97.1. She is 5'9 1/2 , weighs 128 kg. GENERAL IMPRESSION: Pleasant, appropriate, in no acute distress. FOCUSED EXAM - BACK: Range of motion is functional in lateral rotation and flexion/extension. Paravertebral muscles are taut but non-spasmodic. Compression along the erector spinae muscles reproduces patient's lower back pain. MUSCULOSKELETAL: Motor is intact, 5/5 bilaterally. Slight motor weakness noted to left leg diffusely, secondary to prior surgical intervention and hardware. Patient has left ankle brace on, walks unassisted with a stable but antalgic gait. 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 Patient is cognitively intact with intact lower extremity patellar reflexes bilaterally. DIAGNOSIS: Chronic pain syndrome, lower back pain, left ankle pain and lumbar spasms. PLAN: We will refill lidocaine 5% patch to be used b.i.d. Baclofen 10 mg at h. s. will be started, and she is to use a heat pad and stretches for her lower back tightness. We will prescribe her compounded Buderer cream for her neuropathic pain and inflammation to her left ankle. Patient agrees with this plan of care. We will see her back in three months' time, unless otherwise indicated.[facility] [id number] Hospital Discharge instructions Additional Instructions Take the amoxicillin twice a day for 10 days take with food and take until completed May take the ketorolac every 6 hours for pain May take the promethazine DM every 6 hours for pain sore throat might make you drowsy You can take the Magic mouthwash every 4-6 hours for sore throat Increase oral fluids Follow-up with your family doctor for recheck Return to the ER for high fever difficulty breathing vomiting or any other [facility] Work Phone: [phone] 117-385112-08-2022 NoteCONSULTATION CONSULTATION DATE: 11/04/2022 HISTORY OF PRESENT ILLNESS: This is a pleasant, 41-year-old female who returns to the clinic for medication management of her chronic left ankle and foot pain. The patient was last seen on 07/08/2022 and, at that time, she was prescribed a short course of prednisone due to increased inflammatory pain. Since then, she has followed up with Dr. Garcia and Orthopedics, and is in the process of getting a customized fitted brace for her left foot. Dr. Garcia's most recent assessment includes wanting her to decrease her work days to twice a week, no more than 20-30 a week. Patient does work at [employer] and is on her foot a lot. Medications include gabapentin, Percocet 5/325 t.i.d., lidocaine patch and Vistaril. Patient has been out of gabapentin and Vistaril for her anxiety and she was feeling slightly overwhelmed. She does feel that the Percocet is beneficial to her. Prolonged standing, bending, walking and ADLs aggravate her pain. She does also heat and ice which helps her symptoms. Patient's REVIEW OF SYSTEMS / PAST MEDICAL HISTORY / ALLERGIES and IMAGES have been reviewed and they are noted on the chart. PHYSICAL EXAM: VITAL SIGNS: Blood pressure 163/83, heart rate is 85. She is 5'9 , weighs 126 kg. GENERAL APPEARANCE: Pleasant, appropriate, no acute distress. Somewhat depressed mood today. FOCUSED EXAM - MUSCULOSKELETAL: Motor is 4/5 bilaterally, left weaker than right. Some muscle disuse noted to left quadriceps and anterior tibialis. Extensors are intact. NEUROLOGICAL: Patchy hypoesthesia noted to bilateral fingers and her left foot. Patient is cognitively intact. DIAGNOSIS: Chronic pain syndrome and left ankle pain. PLAN: We will refill her gabapentin 300 mg a.m., 200 mg p.m. and 400 mg at h.s. per Dr. Light's recommendation. Vistaril 25 mg b.i.d. will be sent for her anxiety. We will see her in three months' time unless otherwise indicated. Patient agrees with the plan of care.[facility] [id number] Evaluation note* Encounter Date Diagnosis Assessment Notes Treatment Notes Treatment Clinical Notes Jun, Acute pain of right knee (ICD-10 - M25.561) Jun, Synovial cyst of left wrist (ICD-10 - M71.332) Xrays were reviewed wtih patient in detail. We discussed splinting the wrist. If pain persists we could inject the area. Patient will allow some time for improvement. Patient is in need of a cock up wrist brace due to their diagnosis of right wrist arthritis and a ganglion cyst. This is needed for aid in activities of daily living by increasing safety and stability. This will be needed for approximately 6 weeks. Jun, Primary osteoarthritis of right knee (ICD-10 - M17.11) Xrays were reviewed with patient in detail. We discussed a cortisone injection. If pain persist we will consider an MRI for further evaluation. We discussed and demonstrated gentle motion exericses as well as quadriceps and hamstring strengthening exerices. We performed a 1/1cc marcaine / kenalog cortisone injection into the knee joint under sterile technique. Patient tolerated the injection well without adverse reaction. [employer] Other 08-11-2022 NoteCONSULTATION CONSULTATION DATE: 07/08/2022 HISTORY OF PRESENT ILLNESS: This is a 41-year-old female returning to the clinic for chronic regional pain syndrome and medication management. She was last seen on 04/15/2022 which, at that time, she was status post left lumbar sympathetic block that afforded her 50% relief. That procedure was completed on 03/30/2022. She today is complaining of left foot and knee pain, but primarily left arm pain. She has bilateral upper extremity paresthesia, but is complaining of shooting pain to her left arm from shoulder to hands. She does have a pending appointment with Dr. Rosenberg, Orthopedic in [place] next week. They are going to discuss her joint pain as well as a nodule to her left wrist and right knee. Current medications include gabapentin 300 mg in the a.m., 200 mg in the afternoon and 300 mg at h.s.; Percocet 5/325 t.i.d., Vistaril, nabumetone and a lidocaine patch. Activities that aggravate all of her pain are standing, walking, lying, evening hours, bending and physical activity. She does use a cane to ambulate. Ice does help mitigate her pain somewhat. She has progressed from staying in the wheelchair most of the day to ambulating with the cane, which is an improvement for her. Patient's REVIEW OF SYSTEMS / PAST MEDICAL HISTORY / ALLERGIES and IMAGES have been reviewed and they are noted on the chart. PHYSICAL EXAM: VITAL SIGNS: Blood pressure 146/79, heart rate is 81. Temperature is 97.5. She is 5'9 and weighs 124.6 kg. GENERAL APPEARANCE: Pleasant, appropriate, uncomfortable in the chair today. FOCUSED EXAM: Generalized polyarthralgia and myalgias to bilateral lower extremities and bilateral upper extremities. Primary is left upper extremity. NEUROLOGICAL: Radicular sensory is intact but blunted brachioradialis and triceps reflexes to the left and +1 bilateral patellar and Achilles reflexes. MUSCULOSKELETAL: Diffuse muscle atrophy noted to bilateral lower extremities, but motor is intact, 3-4 bilaterally. She is ambulating steadily with her cane. EXTREMITIES: Slight pedal edema noticed bilaterally. Patient has foot and ankle brace intact to her left lower extremity. IMPRESSION: Chronic regional pain syndrome bilaterally, left arm pain. PLAN: I discussed with the patient the benefit of a left stellate ganglion block to address her left arm pain. I encouraged her to consider that and attend her orthopedic appointment first and get feedback from him. Following that appointment, if she wishes to follow through with the left stellate ganglion block for her left arm pain, she is to call the office to do so. In the meantime, she will be placed on a five day course of prednisone; three days of 40 mg and two days of 20 mg. Patient is to call the office and, upon direction of that phone call, we will follow up with her in the office. She is in agreement to this plan.[facility] [id number] NoteCONSULTATION CONSULTATION DATE: 04/15/2022 This is a pleasant 41-year-old female returning to the clinic status post #2 left sympathetic nerve block at L4, L5 which was completed on 03/30/2022 and afforded the patient 50% relief. The patient over the course of her care with her traumatic left foot injury and chronic jeremie pain syndrome, has shown progress. The coloration in her left lower extremity is greatly improving and near equal to her right leg. 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 She is on her feet a lot and has recently experienced left lower extremity swelling. Overall, the patient felt that's some pressure has been released with this recent sympathetic block. Current medications include gabapentin 200 mg a.m., 200 mg noon and 400 mg at dusk, Percocet 5/325 t.i.d., Vistaril and a vitamin complex. The patient does continue to go to physical therapy at [facility] in [place]. Activities that aggravate her pain are standing, walking, evening hours and changes in the weather. In the evening she does elevate her feet which does benefit her. She will use ice after work for acute inflammation which is helpful. REVIEW OF SYSTEMS, PAST MEDICAL HISTORY, ALLERGIES AND IMAGES: Have been reviewed and noted in the chart. PHYSICAL EXAM: VITAL SIGNS: Blood pressure 143/83, heart rate is 83, temperature is 97.1. Height is 5'9 , weighs 127 kg. GENERAL APPEARANCE: Pleasant and appropriate, in no acute distress. Sitting in the chair. FOCUSED EXAM: Back range of motion is functional lateral rotation and flexion-extension. Minimal spinal axial pain in noted to direct compression along the posterior elements of the facets, particularly on the left of L3, L4 and L5 with radicular pain that goes below the knee. Perivertebral muscles are non-spasmodic. Kiana's point is negative. MUSCULOSKELETAL: Motor is intact, 4 out of 5 bilaterally. Left is weakness is greater than the right. The patient has graduated to using a cane from her crutches for ambulation. NEUROLOGICAL: Patchy hypesthesia noted to bilateral lower extremities along the L4, L5 dermatome. DIAGNOSIS: Chronic regional pain syndrome, type 1 and left foot pain. PLAN: Prescription refills will be set today for Percocet 5/325 t.i.d. and gabapentin as originally prescribed. The patient was encouraged to continue with physical therapy and her vitamin modalities. We will see the patient in three months' time and after that appointment we will re-evaluate her for possible work in her lumbar region. The patient agrees to the plan of care and would like to proceed. [facility] Signed and Approved by: NICO GARCIAS . 04/19/2022 15:06:00[facility] noteNo assessment information availableSt[facility] Work Phone: History general Narrative - Reported* Type Description Date Medical History Rheumatoid arthritis Medical History carpal tunnel Medical History diabetes Medical History HTN Surgical History Bilateral feet surgery-heel spu rs Surgical History x 2 Surgical History gall bladder Surgical History tendon repair, nerve repair lef t lower extremity 2020 Surgical History left carpal tunnel release 2020 Hospitalization History see surgeries [employer] Other Hospital Discharge instructions Additional Instructions Tylenol every 4 hours as needed for pain Return if symptoms are worse Watch for signs of infection Follow-up with your nailbed salon and get the false nail removed tomorrow [facility] Work Phone: Hospital Discharge instructions Additional Instructions Follow-up with your primary care doctor Return to ED if develop worsening symptoms or concern[facility] Work Phone: Hospital Discharge instructions Additional Instructions I am not able to prescribe you any pain medication as you have a current prescription for Percocet.[facility] Work Phone: Advance Directives Advance Directive Response Recorded Date/ Time Advance Directives No July 22, 2017 11:04am Advance Directive Response Recorded Date/ Time Advance Directives No July 22, 2017 10:04am Chief Complaint and Reason for Visit Chief Complaint ^ L FOOT PAIN, SWELLING I82.409 Chief Complaint ^ R leg/L wrist pain Chief Complaint ^ R leg/L wrist pain m25.561 m17.11 sore throat left ear pain Chief Complaint ^ R leg/L wrist pain m25.561 m17.11 sore throat left ear pain Requesting fake fingernail be removed Chief Complaint ^ sore throat left ear pain Requesting fake fingernail be removed M19.072 Sore throat, Head pain Chief Complaint ^ M19.072 Sore throat, Head pain cough,vomiting,sore throat DIFFICULTY BREATHING, SORE THROAT Chief Complaint ^ Sore throat, Head pain cough,vomiting,sore throat DIFFICULTY BREATHING, SORE THROAT Sore throat, bilat ear pain Chief Complaint ^ migraine, lt wrist pain due to fall chest pain, L arm numb Chief Complaint ^ migraine, lt wrist pain due to fall chest pain, L arm numb syncope Chief Complaint ^ migraine, lt wrist pain due to fall chest pain, L arm numb M25.532 syncope BI LAT LEG PAIN Chief Complaint ^ migraine, lt wrist pain due to fall chest pain, L arm numb M25.532 syncope BI LAT LEG PAIN z13.6/d51.9 Chief Complaint ^ chest pain, L arm numb M25.532 syncope BI LAT LEG PAIN z13.6/d51.9 R55 Chief Complaint ^ z13.6/d51.9 R55 i10 Chief Complaint ^ i10 Screening Assessments No Assessments Information Available Family History Relationship Condition Age at Onset Recorded Date/T mendez Not Specified Myocardial infarction Unknown Diabetes mellitus Unknown father Cerebrovascular accident (CVA) Unknown Hypertension Unknown brother Diabetes mellitus Unknown Renal failure Unknown Summary Purpose Additional Source Comments REASON FOR VISIT (unrecogniz ed section and content) [facility] [place] KNE E PAIN WXLeft Wrist Pain, Right Carpal Tunnel SyndromeLeft Wrist Pain, Right Carpal Tunnel Syndrome Care Teams (unrecognized sec tion and content) Team Status: Active Member Role Status [facility] Primary Care Provider Active Team Status: Active Member Role Status Breana Aguilera DO Attending Provider Active Team Status: Inactive Member Role Status [facility] Primary Care Provider Active Agustin Sandra APRN Emergency Provider Active Team Status: Inactive Member Role Status [facility] Primary Care Provider Active Leonel Guerra DO Emergency Provider Active Team Status: Inactive Member Role Status [facility] Primary Care Provider Active aMrissa Elliott APRN Emergency Provider Active Team Status: Inactive Member Role Status [facility] Primary Care Provider Active Praveen A Keister , DO Emergency Provider Active Team Status: Inactive Member Role Status Dates Services [facility] Primary Care Provider Active Gabriel Rosenberg MD Attending Provider Active Team Status: Inactive Member Role Status [facility] Primary Care Provider Active Ayan Andrade MD Emergency Provider Active Team Status: Inactive Member Role Status [facility] Primary Care Provider Active Gabriel Breaux Jr, MD Emergency Provider Active Team Status: Inactive Member Role Status Dates Services Family [facility] Primary Care Provider Active Abner Garcia , DPM [place] Attending Provider Active Team Status: Inactive Member Role Status Dates Services [facility] Primary Care Provider Active Caitlyn Cooper , HEMATOLOGIST- Emergency Provider Active Team Status: Inactive Member Role Status Dates Services [facility] Primary Care Provider Active Arnoldo Pérez , DO Emergency Provider Active Team Status: Inactive Member Role Status Dates Services [facility] Primary Care Provider Active Gabriel Breaux Jr, MD Emergency Provider Active Princess Guevara MD RES Active Team Status: Inactive Member Role Status Dates Services [facility] Primary Care Provider Active Teo Heath , Attending Provider Active Marquise Disla , DO RES Other Provider Active Team Status: Inactive Member Role Status Dates Services [facility] Primary Care Provider Active Teo Heath DO Attending Provider Active Jhon Luu , DO RES Referring Provider Active Team Status: Inactive Member Role Status Dates Services [facility] Primary Care Provider Active Referral Self Attending Provider Active Goals (unrecognized section and content) Goals may be documented in a n alternate section INFORMATION SOURCE (unrecogn ized section and content) DATE CREATED AUTHOR 02/19/2023 [facility] DATE CREATED AUTHOR AUTHOR'S ORGANIZ ATION 06/04/2023 [facility] DATE CREATED AUTHOR AUTHOR'S ORGANIZ ATION 12/05/2023 [facility] FOR RECORDS PERTAINING TO PATIENTS WHO ARE OR HAVE BEEN ENROLLED IN A CHEMICAL DEPENDENCY/SUBSTANCEABUSE PROGRAM, SOME INFORMATION MAY BE OMITTED. This clinical summary was aggregated from multiple sources. Caution should be exercised in using it in the provision of clinical care. This summary normalizes information from multiple sources, and as a consequence, information in this document may materially change the coding, format and clinical context of patient data. In addition, data may be omitted in some cases. CLINICAL DECISIONS SHOULD BE BASED ON THE PRIMARY CLINICAL RECORDS. [facility] [employer] [facility]. provides no warranty or guarantee of the accuracy or completeness of information in this document.
--- NOTE | 2024-02-06 13:25 | P.CN_ITS ---
Consult Note: HPI Data of Consult Patient: known to practice within the last 3 years Consult date: 02/06/24 Requesting Physician: Alfie Dixon MD Primary Care Provider: [facility] Consult Narrative Reason for consult: left foot pain Narrative: 43yof who presents for assessment. she notes persistence of significant left lower extremity pain as a consequence of her 33 foot surgeries. states that she is trying to avoid any further surgeries, if at all possible. has now been able to work, but still has significant left foot pain. utilizes percocet and gabapentin, which provides some relief. has undergone a variety of phsyical therapy sessions, with minimal lasting benefit. denies adverse med side effects. cc:: CC: Alfie Dixon MD Review of Systems ROS Status of ROS 10 or more systems reviewed and unremark able except as noted in history and below Meds Home Medications and Allergies Home Medications Medication Instructions Recorded Confirmed Type ascorbic acid (vitamin C) 500 mg 500 mg PO BID 05/06/23 05/06/23 History tablet aspirin 325 mg tablet 325 mg PO DAILY 05/06/23 05/06/23 History ferrous sulfate 325 mg (65 mg 325 mg PO DAILY 05/06/23 05/06/23 History iron) tablet gabapentin 100 mg capsule 200 mg PO .every evening 05/06/23 05/06/23 History gabapentin 300 mg capsule 300 mg PO BID 05/06/23 05/06/23 History hydroxyzine pamoate 25 mg capsule 25 mg PO TID 05/06/23 05/06/23 History lidocaine 5 % topical kit 1 applic topical DAILY 05/06/23 05/06/23 History oxycodone-acetaminophen 5 mg-325 1 tab PO QID 05/06/23 11/09/23 History mg tablet (Percocet) promethazine 25 mg tablet 25 mg PO Q12H PRN nausea and 05/06/23 05/06/23 History vomiting pyridoxine (vitamin B6) 100 mg 100 mg PO BID 05/06/23 05/06/23 History tablet vitamin B complex (B 1 tab PO DAILY 05/06/23 05/06/23 History Complex-Vitamin B12 tablet) zinc sulfate 50 mg zinc (220 mg) 50 mg PO DAILY 05/06/23 05/06/23 History capsule oxycodone-acetaminophen 5 mg-325 1 tab PO TID PRN pain #90 tabs 08/25/23 Rx mg tablet (Percocet) oxycodone-acetaminophen 5 mg-325 1 tab PO TID PRN pain #90 tabs 09/26/23 Rx mg tablet (Percocet) oxycodone-acetaminophen 5 mg-325 1 tab PO TID PRN pain #90 tabs 10/27/23 Rx mg tablet (Percocet) oxycodone-acetaminophen 5 mg-325 1 tab PO QID PRN pain #120 tabs 11/17/23 Rx mg tablet (Percocet) oxycodone-acetaminophen 5 mg-325 1 tab PO QID PRN pain #120 tabs 12/22/23 Rx mg tablet (Percocet) oxycodone-acetaminophen 5 mg-325 1 tab PO QID PRN pain #120 tabs 01/23/24 Rx mg tablet (Percocet) Allergies Allergy/AdvReac Type Severity Reaction Status Date / Time naproxen [From Naprosyn] Allergy Mild Hives Verified 05/06/23 10:47 ondansetron [From Zofran] AdvReac Intermediate edema Verified 05/06/23 10:47 cyclobenzaprine AdvReac Mild Vomiting Verified 05/06/23 10:47 [From Flexeril] Exam Narrative Exam Narrative: Psych-alert and oriented x 3.? Attentive and appropriate, constitutionally normal, displays normal mood and affect per situation.? There are no obvious deficits in memory, reasoning, or intellect. Examination of the left lower extremity reveals notable hyperpathia and allodynia.? Notable atrophy and diffuse weakness present in the extremity.? There is notable shiny skin with hair loss and abnormal hair growth denoting trophic changes presently.? Asymmetric color and temperature changes are present which denotes sudomotor changes.? Decreased range of motion and strength is noted in the extremity.? Coordination remains intact.? Gait remains non-antalgic. Assessment and Plan Assessment and Plan (1) Complex regional pain syndrome type 1 affecting left lower leg: Plan 43yof who presents for assessment. failed conservative measures, as noted. discussed that we would do whatever possible to help stave off any further surgeries, given the number of surgeries she has already undergone. at this point, will have her undergo left lumbar sympathetic nerve block x2. she is in agreement. also discussed that depending on outcome, she may be a candidate for spinal cord stimulator trial. provided her with info about this. medications reviewed, no changes. follow up after procedure.
== END 2024-02-06 12:42 | disposition home or self-care (01) ==
LOC: PM 12:41
PROVIDERS: Visit Provider Anesthesiology
DX: G90.522 Complex regional pain syndrome I of left lower limb (principal)
CPT/HCPCS: G0463

== ENCOUNTER 2024-02-27 06:42 | Day surgery (SDC) | payer MEDICARE, MEDICAID, SELFPAY ==
--- OUTSIDE RECORDS SUMMARY | 2024-02-27 06:46 | XMS_ITS | CCD ---
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 Name Role Phone Clyde Aguilera Attending Provider Unavailable [facility] Primary Care Provider Un available Leonel Lucas Attending Provider Unavailable Gabriel Rosenberg Unavailable DO Clyde Aguilera Attending Provider [facility] Primary Care Provider [phone] LUIS Elliott Emergency Provider [phone] MD Gabriel Rosenberg Attending Provider DO Praveen Pearl Emergency Provider [phone] MD Ayan Andrade Emergency Provider [phone] DO Clyde Aguilera Attending Provider [facility] Primary Care Provider DO Praveen Pearl Emergency Provider MD Ayan Andrade Emergency Provider DIONNE Garcia Attending Provider [phone] MD Gabriel Breaux Jr Emergency Provider [facility] Primary Care Provider Kenneth NEWS LIBRARIAN- Caitlyn Tuttle Emergency Provider [facility] Primary Care Provider [phone] DO Arnoldo Pérez Emergency Provider [phone] UZAIR CARTER Admitting Unavailable TERRENCE .DR UZAIR Attending Unavailable NICO GOMEZ Consulting Unavailable [facility] Primary Care Unavaila DR ARIADNA Hardin Consulting Unavailable LAKSHMIPATHY ., NARENDRANATH Admitting Katerine vailable LAKSHMIPATHY ., NARENDRANATH Attending Katerine vailable [facility] Primary Care Unavaila ble LIGHT ., DR UZAIR Matute Admitting Unavailable [...] Matute Consulting Unavailable CARMEN CARPIO Consulting Unavailable [facility] Primary Care Provider LUIS Sandra Emergency Provider DO Leonel Guerra Emergency Provider Dr. Marcos Gregory Attending Unava ilable MD Gabriel Rosenberg Attending Provider MD Gabriel Breaux Jr Emergency Provider DO Teo Heath Attending Provider [phone] DO Marquise Disla Other Provider [phone] [facility] Primary Care Provider [phone] LUIS Sandra Emergency Provider DO John Luu Referring Provider [phone] [facility] Primary Care Provider DO Teo Heath Attending Provider DO Marquise Disla Other Provider DO John Luu Referring Provider DO John Luu Referring Provider [phone] [facility] Primary Care Unavaila ble Agsutin Sandra Admitting Unavailable Agustin Sandra Attending Unavailable [facility] Primary Care Unavaila ble Gabriel Breaux Jr Admitting Unavailable Gabriel Breaux Jr Attending Unavailable Leonel Guerra Admitting Unavailable Leonel Guerra Attending Unavailable [facility] Primary Care Unavaila ble Agustin Sandra Attending Unavailable Jocy, Agustin Admitting Unavailable [facility] Primary Care Unavaila ble [facility] Primary Care Unavaila ble Elisa, Arnoldo M Admitting Unavailable Elisa, Arnoldo M Attending Unavailable [facility] Primary Care Unavaila ble Self, Referral Admitting Unavailable Self, Referral Attending Unavailable [facility] Primary Care Unavaila ble John Luu Referring Unavailable Kumar, Teo Admitting Unavailable Kumar, Teo Attending Unavailable [facility] Primary Care Unavaila ble John Luu Referring Unavailable Kumar, Teo Admitting Unavailable Kumar, Teo Attending Unavailable [facility] Primary Care Unavaila ble Kumar, Teo Admitting Unavailable Kumar, Teo Attending Unavailable Marquise Disla Consulting Unavailable [facility] Primary Care Unavaila ble Olexa, Gabriel Admitting Unavailable Olexa, Gabriel Attending Unavailable [facility] Primary Care Unavaila ble Bullimore, Caitlyn E Admitting Unavailable Bullimore, Caitlyn E Attending Unavailable [facility] Primary Care Unavaila ble Bullimore, Caitlyn E Admitting Unavailable Bullimore, Caitlyn E Attending Unavailable [facility] Primary Care Provider DO Teo Heath Attending Provider [phone] Self, Referral Attending Provider Unavailable Zack SKINNER, Alfie Ch Attending Unavailable Unavailable Unavailable Unavailable Allergies Allergy Classification Reported Allergen(s) Allergy Type Date of Onset Reaction(s) Facility (15 sources) cyclobenzaprine ; Translations: [cyclobenzaprin e] Drug Allergy 2 Swelling of Lip/Tongue/Thro at [facility] (18 sources) Naproxen; Translations: [naproxen] Drug Allergy 2 Hives, Unknown [facility] (15 sources) Ondansetron; Translations: [ondansetron] Drug Allergy 2 Swelling of Lip/Tongue/Thro at [facility] (18 sources) Scallop - dietary; Translations: [scallops] Allergy to substance [address] [facility] (5 sources) cyclobenzaprine ; Translations: [Flexeril] Drug Allergy [address] [facility] (5 sources) Ondansetron; Translations: [Zofran] Drug Allergy 7 Unknown [facility] (2 sources) Naproxen Drug Allergy 7 [facility] (2 sources) Misc-Food; Translations: [Misc-Food] Food allergy (disorder) 7 [facility] Medications Current Medications Medication Drug [...] Sulf ate Active 2 INH INHALATION Q4H 8.November 10, 2019 12:00am Start: 08-26-2017 take 1 [...] Discontinued 1 CAP PO EVERY 4-6 HOURS November 10, 2019 12:00am June 18, 2023 11:34pm acetaminophen 325 mg / HYDROcodone bitartrate 5 mg oral tablet (14 sources) Opioid Agonist Start: 11-26-2019 End: 12-26-2020 take 1 tablet by mouth three times daily Hydrocodone-Aceta minophen ([place]) 5-325 mg tablet Discontinued 1 TAB PO [...] mg/ml oral solution (9 sources) Phenothiazine, Uncompetitive F-cqrplm-C-aspartate Receptor Antagonist, Sigma-1 Agonist Start: 01-08-2023 End: [...] 12:00am April 18, 2023 11:08am Prenat 115-Iron Upe-Mhmat-Cru ( 19 (With Docusate)) 29 mg iron- 1 mg-25 mg tablet (13 sources) Start: 04-21-2018 End: 04-22-2019 take 1 tablet by mouth once daily Prenat 115-Iron Awd-Slxvd-Kbg ( 19 (With Docusate)) 29 mg iron- 1 mg-25 mg tablet Discontinued 1 TAB PO Daily April 20, 2018 11:00pm April 22, 2019 9:17am Start: 04-21-2018 End: 04-22-2019 take 1 tablet by mouth once daily Prenat 115-Iron Ehm-Pfumy-Hnp ( 19 (With Docusate)) 29 mg iron- [...] Pseudoephedrine Hcl Discontinued 120 MG PO Q12H November 10, 2019 12:00am November 26, 2019 12:14pm sulfamethoxazole 800 mg / trimethoprim 160 mg oral tablet (13 sources) Dihydrofolate Reductase Inhibitor Antibacterial, Sulfonamide Antimicrobial Start: 04-06-2018 End: 05-27-2018 take 1 tablet by mouth twice daily Sulfamethoxazole-Tr imethoprim (Bactrim Ds) 800-160 mg tablet Discontinued 1 TAB PO Twice daily April 05, 2018 11:00pm May 27, 2018 12:26am traMADol hydrochloride 50 mg oral tablet (13 sources) Opioid Agonist Start: 12-09-2018 End: 04-22-2019 take 1 tablet by mouth every four to six hours Tramadol (Ultram) 50 mg tablet Discontinued 50 MG PO EVERY 4-6 HOURS 16 December 09, 2018 12:00am April 22, 2019 [...] n 12-02-2023 MM screening mammo BI w/CAD [facility] [place] [address] Mammography Report Signed Patient: Loy Tam MR#: [id number] : 1980 Acct:[id number] Age/Sex: 42 / F ADM Date: 12/02/23 Loc: [place] Room: Type: [facility] Attending Dr: Referral Self Copies to: [facility] SELF,REFERRAL Ordering Provider: SELF,REFERRAL Date [...] Sarah Mistry M.D.12/02/2023 3:31 PM Dictation Location: [facility] Transcribed By: ILIA 12/02/23 1531 Dictated By: Sarah Mistry MD 12/02/23 1523 Signed By: 12/02/23 1531 Normal [facility] FE PROon 10-07-2023 % Iron Saturation 12.3 % Low 20-50 [facility] Comment on above: Performed By: #### T SH3, FE PRO #### [facility] [address] [place] [address] Ferritin [Mass/Vol] 23.1 ng/mL Normal 11.0-306.8 [facility] Comment on above: Performed By: #### T SH3, FE PRO #### [address] Iron [Mass/Vol] 48 ug/dL Low 50-212 [facility] Comment on above: Performed By: #### T SH3, FE PRO #### [address] Total Iron Binding Capacity 389 ug/dL Normal 255-450 [facility] Comment on above: Performed By: #### T SH3, FE PRO #### [facility] [address] Transferrin [Mass/Vol] 278 mg/dL Normal 203-362 [facility] Comment on above: Performed By: #### T SH3, FE PRO #### [facility] [address] [place] [address] [place] Ferritin [Mass/volume] in Se rum or PlasmaOrdered By: Teo Heath on 10-07-2023 Ferritin [Mass/Vol] 23.1 ng/mL 11.0-306.8 [facility] Iron [Mass/volume] in Serum or PlasmaOrdered By: Teo Heath on 10-07-2023 Iron [Mass/Vol] 48 ug/dL 50-212 [facility] Iron binding capacity [Mass/ volume] in Serum or PlasmaOrdered By: Teo Heath on 10-07-2023 Iron binding capacity [Mass/Vol] 389 ug/dL 255-450 [facility] Iron saturation [Mass Fracti on] in Serum or PlasmaOrdered By: Teo Heath on 10-07-2023 Iron saturation [Mass fraction] 12.3 % 20-50 [facility] Thyroid Stimulating Hormoneo n 10-07-2023 TSH Qn 0.91 m[IU]/L Normal 0.45-5.33 [facility] Comment on above: Result Comment: PERF ORMED BY: [place] [address] PATHOLOGIST PHOTOCOMPOSITION KEYBOARD OPERATOR MARTY SALGADO M.D. Performed By: #### B MP, HS TROP, CBC #### [facility] [address] [place] [address] [place] Thyrotropin [Units/volume] i n Serum or PlasmaOrdered By: Teo Heath on 10-07-2023 TSH Qn 0.91 m[IU]/L 0.45-5.33 [facility] Transferrin [Mass/volume] in Serum or PlasmaOrdered By: Teo Heath on 10-07-2023 Transferrin [Mass/Vol] 278 mg/dL 203-362 [facility] Alanine aminotransferase [En zymatic activity/volume] in Serum or PlasmaOrdered By: Marquise iDsla on 07-13-2023 ALT [Catalytic activity/Vol] 25 U/L 7-52 [facility] Albumin [Mass/volume] in Ser um or Plasma by Bromocresol green (BCG) dye binding methoOrdered By: Marquise Disla on 07-13-2023 Albumin BCG dye [Mass/Vol] 4.2 g/dL 3.5-5.7 [facility] Alkaline phosphatase [Enzyma tic activity/volume] in Serum or PlasmaOrdered By: Marquise Disla on 07-13-2023 ALP [Catalytic activity/Vol] 113 U/L 34-104 [facility] Aspartate aminotransferase [ Enzymatic activity/volume] in Serum or PlasmaOrdered By: Marquise Disla on 07-13-2023 AST [Catalytic activity/Vol] 13 U/L 13-39 [facility] Basophils Auto (Bld) [#/Vol] Ordered By: Marquise Disla on 07-13-2023 Basophils (Bld) [#/Vol] 0.1 10*3/uL 0.0-0.2 [facility] Basophils/100 WBC Auto (Bld) Ordered By: Marquise Disla on 07-13-2023 Basophils/100 WBC (Bld) 1.2 % . [facility] Bilirubin.total [Mass/volume ] in Serum or PlasmaOrdered By: Marquise Disla on 07-13-2023 Bilirubin [Mass/Vol] 0.6 mg/dL 0.3-1.[address] [facility] Calcium [Mass/volume] in Ser um or PlasmaOrdered By: Marquise Disla on 07-13-2023 Calcium [Mass/Vol] 9.6 mg/dL 8.6-10.3 [facility] Carbon dioxide, total [Moles /volume] in Serum or PlasmaOrdered By: Marquise Disla on 07-13-2023 CO2 [Moles/Vol] 27.9 mmol/L 21.0-31.0 [facility] Chloride [Moles/volume] in S brian or PlasmaOrdered By: Marquise Disla on 07-13-2023 Chloride [Moles/Vol] 106 mmol/L 98-[address] [facility] Cholesterol [Mass/volume] in Serum or PlasmaOrdered By: Marquise Disla on 07-13-2023 Cholesterol [Mass/Vol] 208 mg/dL 140-200 [facility] Comment on above: Chol less than 200 m g/dl low riskChol 201-239 mg/dl borderline riskChol 240 mg/dl and greater high risk Cholesterol in LDL Calc [Mas s/Vol]Ordered By: Marquise Disla on 07-13-2023 Cholesterol in LDL [Mass/Vol] 150 mg/dL 0-100 [facility] Comment on above: LDL ATP III CLASSIFI CATIONLDL less than 100 mg/dL OptimalLDL 100-129 mg/dL Near or above optimalLDL 130-159 mg/dL Borderline highLDL 160-189 mg/dL HighLDL greater than 189 mg/dL Very high Cholesterol in LDL [Mass/vol ume] in Serum or PlasmaOrdered By: Marquise Disla on 07-13-2023 Cholesterol in LDL [Mass/Vol] 171 mg/dL 0-100 [facility] Comment on above: LDL ATP III CLASSIFI CATIONLDL less than 100 mg/dL OptimalLDL 100-129 mg/dL Near or above optimalLDL 130-159 mg/dL Borderline highLDL 160-189 mg/dL HighLDL greater than 189 mg/dL Very high Cholesterol in VLDL Calc [Ma ss/Vol]Ordered By: Marquise Disla on 07-13-2023 Cholesterol in VLDL [Mass/Vol] 17 mg/dL [facility] Complete Blood Count Auto Di ffon 07-13-2023 Basophils (Bld) [#/Vol] 0.1 10*3/uL Normal 0.0-0.2 [facility] Comment on above: Result Comment: PERF ORMED BY: [place] [address] PATHOLOGIST PHOTOCOMPOSITION KEYBOARD OPERATOR MARTY SALGADO M.D. Performed By: #### B MP, HS TROP, CBC #### [facility] [address] Basophils/100 WBC (Bld) 1.2 % Normal . [facility] Comment on above: Performed By: #### B MP, HS TROP, CBC #### [facility] [address] Eosinophils (Bld) [#/Vol] 0.3 10*3/uL Normal 0.0-0.45 [facility] Comment on above: Performed By: #### B MP, HS TROP, CBC #### [facility] [address] Eosinophils/100 WBC (Bld) 3.3 % Normal . [facility] Comment on above: Performed By: #### B MP, HS TROP, CBC #### [facility] [address] Erythrocyte distribution width (RBC) [Ratio] 16.1 % High 11.9-15.3 [facility] Comment on above: Performed By: #### B MP, HS TROP, CBC #### [address] Hematocrit (Bld) [Volume fraction] 39.7 % Normal 34.0-46.4 [facility] Comment on above: Performed By: #### B MP, HS TROP, CBC #### [address] Hemoglobin (Bld) [Mass/Vol] 12.8 g/dL Normal 11.8-15.4 [facility] Comment on above: Performed By: #### B MP, HS TROP, CBC #### [place] [address] [place] Lymphocytes (Bld) [#/Vol] 3.2 10*3/uL Normal 1.00-4.8 [facility] Comment on above: Performed By: #### B MP, HS TROP, CBC #### [place] [address] [place] Lymphocytes/100 WBC (Bld) 31.0 % Normal . [facility] Comment on above: Performed By: #### B MP, HS TROP, CBC #### [address] MCH (RBC) [Entitic mass] 23.1 pg Low 24.7-34.3 [facility] Comment on above: Performed By: #### B MP, HS TROP, CBC #### [facility] [address] MCV (RBC) [Entitic vol] 71.6 fL Low 80-100 [facility] Comment on above: Performed By: #### B MP, HS TROP, CBC #### [facility] [address] Mean Corpuscular HGB Conc 32.2 g/dL Normal 32.0-35.0 [facility] Comment on above: Performed By: #### B MP, HS TROP, CBC #### [address] Monocytes (Bld) [#/Vol] 0.7 10*3/uL Normal 0.0-0.8 [facility] Comment on above: Performed By: #### B MP, HS TROP, CBC #### [address] Monocytes/100 WBC (Bld) 6.5 % Normal . [facility] Comment on above: Performed By: #### B MP, HS TROP, CBC #### [place] [address] [place] Neutrophils (Bld) [#/Vol] 6.0 10*3/uL Normal 1.8-7.7 [facility] Comment on above: Performed By: #### B MP, HS TROP, CBC #### [place] [address] [place] Neutrophils/100 WBC (Bld) 58.0 % Normal . [facility] Comment on above: Performed By: #### B MP, HS TROP, CBC #### [place] [address] [place] NRBC% 0.2 /100{WBC} Normal 0-0.5 [facility] Comment on above: Performed By: #### B MP, HS TROP, CBC #### [place] [address] [place] Platelet mean volume (Bld) [Entitic vol] 7.2 fL Normal 6.3-10.7 [facility] Comment on above: Performed By: #### B MP, HS TROP, CBC #### [facility] [address] Platelets (Bld) [#/Vol] 394 10*3/uL Normal 150-450 [facility] Comment on above: Performed By: #### B MP, HS TROP, CBC #### [facility] [address] [place] [address] RBC (Bld) [#/Vol] 5.55 10*6/uL High 3.60-5.00 [facility] Comment on above: Performed By: #### B MP, HS TROP, CBC #### [address] WBC (Bld) [#/Vol] 10.3 10*3/uL Normal 3.8-11.6 [facility] Comment on above: Performed By: #### B MP, HS TROP, CBC #### [address] Comprehensive Metabolic Pane susan 07-13-2023 Albumin [Mass/Vol] 4.2 g/dL Normal 3.5-5.7 [facility] Comment on above: Performed By: #### B MP, HS TROP, CBC #### [address] Albumin/Globulin [Mass ratio] 1.2 {ratio} Normal [facility] Comment on above: Performed By: #### B MP, HS TROP, CBC #### [facility] [address] [place] [address] ALP [Catalytic activity/Vol] 113 U/L High 34-104 [facility] Comment on above: Performed By: #### B MP, HS TROP, CBC #### [facility] [address] [place] [address] ALT [Catalytic activity/Vol] 25 U/L Normal 7-52 [facility] Comment on above: Performed By: #### B MP, HS TROP, CBC #### [facility] [address] [place] [id number] [place] Anion gap [Moles/Vol] 11.4 mmol/L Normal 6.0-15.0 [facility] Comment on above: Performed By: #### B MP, HS TROP, CBC #### [facility] [address] [place] [id number] [place] AST [Catalytic activity/Vol] 13 U/L Normal 13-39 [facility] Comment on above: Performed By: #### B MP, HS TROP, CBC #### [facility] [address] [place] [address] [place] Bilirubin [Mass/Vol] 0.6 mg/dL Normal 0.3-1.[address] [facility] Comment on above: Performed By: #### B MP, HS TROP, CBC #### [facility] [address] [place] [id number] [place] Calcium [Mass/Vol] 9.6 mg/dL Normal 8.6-10.3 [facility] Comment on above: Performed By: #### B MP, HS TROP, CBC #### [facility] [address] [place] [address] [place] Chloride [Moles/Vol] 106 mmol/L Normal 98-[address] [facility] Comment on above: Performed By: #### B MP, HS TROP, CBC #### [facility] [address] [place] [id number] [place] CO2 [Moles/Vol] 27.9 mmol/L Normal 21.0-31.0 [facility] Comment on above: Performed By: #### B MP, HS TROP, CBC #### [facility] [address] [place] [id number] [place] Creatinine [Mass/Vol] 0.69 mg/dL Normal 0.60-1.20 [facility] Comment on above: Performed By: #### B MP, HS TROP, CBC #### [facility] [address] [place] [id number] [place] GFR/1.73 sq M.predicted MDRD (S/P/Bld) [Vol rate/Area] mL/min/{1.73_m2} Normal [facility] Comment on above: Performed By: #### B MP, HS TROP, CBC #### [facility] [address] Globulin (S) [Mass/Vol] 3.4 g/dL Normal [facility] Comment on above: Performed By: #### B MP, HS TROP, CBC #### [facility] [address] Glucose [Mass/Vol] 87 mg/dL Normal 70-100 [facility] Comment on above: Result Comment: [facility] Glucose Reference Range is dependent on time and content of last meal. Glucose of more than 200 mg/dL in a nonstressed, ambulatory subject supports the diagnosis of Diabetes Mellitus. ADA recommended reference range Performed By: #### B MP, HS TROP, CBC #### [facility] [address] Potassium [Moles/Vol] 4.3 mmol/L Normal 3.5-5.1 [facility] Comment on above: Performed By: #### B MP, HS TROP, CBC #### [facility] [address] [place] [address] [place] Protein [Mass/Vol] 7.6 g/dL Normal 6.4-8.9 [facility] Comment on above: Performed By: #### B MP, HS TROP, CBC #### [facility] [address] [place] [address] [place] Sodium [Moles/Vol] 141 mmol/L Normal 136-145 [facility] Comment on above: Performed By: #### B MP, HS TROP, CBC #### [facility] [address] [place] [id number] [place] Urea nitrogen [Mass/Vol] 10 mg/dL Normal 7-25 [facility] Comment on above: Performed By: #### B MP, HS TROP, CBC #### [facility] [address] [place] [id number] [place] Creatinine [Mass/volume] in Serum or PlasmaOrdered By: Marquise Disla on 07-13-2023 Creatinine [Mass/Vol] 0.69 mg/dL 0.60-1.20 [facility] Eosinophils Auto (Bld) [#/Vo l]Ordered By: Marquise Disla on 07-13-2023 Eosinophils (Bld) [#/Vol] 0.3 10*3/uL 0.0-0.45 [facility] Eosinophils/100 WBC Auto (Bl d)Ordered By: Marquise Disla on 07-13-2023 Eosinophils/100 WBC (Bld) 3.3 % . [facility] Erythrocyte distribution wid th Auto (RBC) [Ratio]Ordered By: Marquise Disla on 07-13-2023 Erythrocyte distribution width (RBC) [Ratio] 16.1 % 11.9-15.3 [facility] Globulin Calc (S) [Mass/Vol] Ordered By: Marquise Disla on 07-13-2023 Globulin (S) [Mass/Vol] 3.4 g/dL [facility] Glucose [Mass/volume] in Ser um or PlasmaOrdered By: Marquise Disla on 07-13-2023 Glucose [Mass/Vol] 87 mg/dL 70-100 [facility] Comment on above: ADA recommended refe rence rangeRandom Glucose Reference Range is dependent on time and content of last meal. Glucose of more than 200 mg/dL in a nonstressed, ambulatory subject supports the diagnosis of Diabetes Mellitus. Hematocrit Auto (Bld) [Volum e fraction]Ordered By: Marquise Disla on 07-13-2023 Hematocrit (Bld) [Volume fraction] 39.7 % 34.0-46.4 [facility] Hemoglobin [Mass/volume] in BloodOrdered By: Marquise Disla on 07-13-2023 Hemoglobin (Bld) [Mass/Vol] 12.8 g/dL 11.8-15.4 [facility] LDL Cholesterol Measuredon 0 07-13-2023 LDL Cholesterol Measured 171 mg/dL High 0-100 [facility] Comment on above: Result Comment: LDL ATP III CLASSIFICATION LDL less than 100 mg/dL Optimal LDL 100-129 mg/dL Near or above optimal LDL 130-159 mg/dL Borderline high LDL 160-189 mg/dL High LDL greater than 189 mg/dL Very high Performed By: #### B MP, HS TROP, CBC #### [facility] [address] [place] [id number] [place] Leukocytes [#/volume] correc abdias for nucleated erythrocytes in Blood by Automated counOrdered By: Marquise Disla on 07-13-2023 WBC corrected for nucl RBC Auto (Bld) [#/Vol] 10.3 10*3/uL 3.8-11.6 [facility] Lipid Panelon 07-13-2023 Cholesterol [Mass/Vol] 208 mg/dL High 140-200 [facility] Comment on above: Result Comment: Chol less than 200 mg/dl low risk Chol 201-239 mg/dl borderline risk Chol 240 mg/dl and greater high risk Performed By: #### B MP, HS TROP, CBC #### [facility] [address] Cholesterol in HDL [Mass/Vol] 40 mg/dL Normal 23-92 [facility] Comment on above: Result Comment: HDL CHOL ATP-III CLASSIFICATION Cardiovascular Risk HDL > or equal to 60 mg/dL LOW HDL < 40 mg/dL HIGH Performed By: #### B MP, HS TROP, CBC #### [facility] [address] Cholesterol.total/Candy sterol in HDL [Mass ratio] 5.2 {ratio} Normal <5.0 [facility] Comment on above: Performed By: #### B MP, HS TROP, CBC #### [facility] [address] [place] [id number] [place] LDL Cholesterol,Calculated 150 mg/dL High 0-100 [facility] Comment on above: Result Comment: LDL ATP III CLASSIFICATION LDL less than 100 mg/dL Optimal LDL 100-129 mg/dL Near or above optimal LDL 130-159 mg/dL Borderline high LDL 160-189 mg/dL High LDL greater than 189 mg/dL Very high Performed By: #### B MP, HS TROP, CBC #### [facility] [address] [place] [id number] [place] Triglyceride w/Reflex 88 mg/dL Normal 0-149 [facility] Comment on above: Result Comment: TRIG ATP III CLASSIFICATION TRIG less than 150 mg/dL Normal TRIG 150-199 mg/dL Borderline high TRIG 200-500 mg/dL High TRIG greater than 500 mg/dL Very high Standard traceable to the Center for Disease Conrtrol and Prevention (CDC) test method. Performed By: #### B MP, HS TROP, CBC #### [facility] [address] VLDL CHOLESTEROL 17 mg/dL Normal [facility] Comment on above: Performed By: #### B MP, HS TROP, CBC #### [facility] [address] Lymphocytes Auto (Bld) [#/Vo l]Ordered By: Marquise Disla on 07-13-2023 Lymphocytes (Bld) [#/Vol] 3.2 10*3/uL 1.00-4.8 [facility] Lymphocytes/100 WBC Auto (Bl d)Ordered By: Marquise Disla on 07-13-2023 Lymphocytes/100 WBC (Bld) 31.0 % . [facility] MCH Auto (RBC) [Entitic mass ]Ordered By: Marquise Disla on 07-13-2023 MCH (RBC) [Entitic mass] 23.1 pg 24.7-34.3 [facility] MCHC Auto (RBC) [Mass/Vol]Or dered By: Marquise [employer] on 07-13-2023 MCHC (RBC) [Mass/Vol] 32.2 g/dL 32.0-35.0 [facility] MCV Auto (RBC) [Entitic vol] Ordered By: Marquise Disla on 07-13-2023 MCV (RBC) [Entitic vol] 71.6 fL 80-100 [facility] Monocytes Auto (Bld) [#/Vol] Ordered By: Marquise Disla on 07-13-2023 Monocytes (Bld) [#/Vol] 0.7 10*3/uL 0.0-0.8 [facility] Monocytes/100 WBC Auto (Bld) Ordered By: Marquise Disla on 07-13-2023 Monocytes/100 WBC (Bld) 6.5 % . [facility] Neutrophils Auto (Bld) [#/Vo l]Ordered By: Marquise Disla on 07-13-2023 Neutrophils (Bld) [#/Vol] 6.0 10*3/uL 1.8-7.7 [facility] Neutrophils/100 WBC Auto (Bl d)Ordered By: Marquise Disla on 07-13-2023 Neutrophils/100 WBC (Bld) 58.0 % . [facility] No Panel InformationOrdered By: Marquise Disla on 07-13-2023 Estimated GFR (CKD-EPI) > 60.0 mL/Min [facility] Creatinine Clearance (Chem N/A [facility] Nucleated erythrocytes [Pres ence] in Blood by Automated countOrdered By: Marquise Disla on 07-13-2023 Nucleated RBC Auto Ql (Bld) 0.2 /100{WBC} 0-0.5 [facility] Platelet mean volume Auto (B ld) [Entitic vol]Ordered By: Marquise Disla on 07-13-2023 Platelet mean volume (Bld) [Entitic vol] 7.2 fL 6.3-10.7 [facility] Platelets Auto (Bld) [#/Vol] Ordered By: Marquise Disla on 07-13-2023 Platelets (Bld) [#/Vol] 394 10*3/uL 150-450 [facility] Potassium [Moles/volume] in Serum or PlasmaOrdered By: Marquise Disla on 07-13-2023 Potassium [Moles/Vol] 4.3 mmol/L 3.5-5.1 [facility] Protein [Mass/volume] in Ser um or PlasmaOrdered By: Marquise Disla on 07-13-2023 Protein [Mass/Vol] 7.6 g/dL 6.4-8.9 [facility] RBC Auto (Bld) [#/Vol]Ordere d By: Marquise Disla on 07-13-2023 RBC (Bld) [#/Vol] 5.55 10*6/uL 3.60-5.00 [facility] Serum or plasma albumin/glob ulin mass ratioOrdered By: Marquise Disla on 07-13-2023 Albumin/Globulin [Mass ratio] 1.2 {ratio} [facility] Serum or plasma anion gap de terminationOrdered By: Marquise Disla on 07-13-2023 Anion gap [Moles/Vol] 11.4 mmol/L 6.0-15.0 [facility] Serum or plasma high density lipoprotein (HDL) cholesterol measurementOrdered By: Marquise Disla on 07-13-2023 Cholesterol in HDL [Mass/Vol] 40 mg/dL 23- [facility] Comment on above: HDL CHOL ATP-III CLA SSIFICATION Cardiovascular RiskHDL > or equal to 60 mg/dL LOWHDL < 40 mg/dL HIGH Serum or plasma total choles terol/high density lipoprotein (HDL) cholesterol mass ratOrdered By: Marquise Disla on 07-13-2023 Cholesterol.total/Candy sterol in HDL [Mass ratio] 5.2 {ratio} <5.0 [facility] Sodium [Moles/volume] in Ser um or PlasmaOrdered By: Marquise Disla on 07-13-2023 Sodium [Moles/Vol] 141 mmol/L 136-145 [facility] Triglyceride [Mass/volume] i n Serum or PlasmaOrdered By: Marquise Disla on 07-13-2023 Triglyceride [Mass/Vol] 88 mg/dL 0-149 [facility] Comment on above: TRIG ATP III CLASSIF ICATIONTRIG less than 150 mg/dL NormalTRIG 150-199 mg/dL Borderline highTRIG 200-500 mg/dL High TRIG greater than 500 mg/dL Very highStandard traceable to the Center for Disease Conrtrol and Prevention (CDC) test method. Urea nitrogen [Mass/volume] in Serum or PlasmaOrdered By: Marquise Disla on 07-13-2023 Urea nitrogen [Mass/Vol] 10 mg/dL 7- [facility] Vitamin B12on 07-13-2023 Cobalamin (Vitamin B12) [Mass/Vol] 324 pg/mL Normal 180-914 [facility] Comment on above: Result Comment: PERF ORMED BY: [place] [address] PATHOLOGIST PHOTOCOMPOSITION KEYBOARD OPERATOR MARTY SALGADO M.D. Performed By: #### B MP, HS TROP, CBC #### [address] Vitamin B12 ser/plasOrdered By: Marquise Disla on 07-13-2023 Cobalamin (Vitamin B12) [Mass/Vol] 324 pg/mL 180-914 [facility] WBC Auto (Bld) [#/Vol]Ordere d By: Marquise Disla on 07-13-2023 WBC (Bld) [#/Vol] 10.3 10*3/uL 3.8-11.6 [facility] Automated erythrocytes count in urine sediment (number/area)Ordered By: Agustin Sandra on 07-01-2023 RBC Auto (Urine sed) [#/Area] 5-9 [HPF] 0-4 [facility] Automated leukocytes count i n urine sediment (number/area)Ordered By: Agustin Sandra on 07-01-2023 WBC Auto (Urine sed) [#/Area] 0-1 [HPF] 0-4 [facility] Basic Metabolic Panelon Anion gap [Moles/Vol] 11.0 mmol/L Normal 6.0-15.0 [facility] Comment on above: Performed By: #### B MP, HS TROP, CBC #### [facility] [address] [place] [id number] [place] Calcium [Mass/Vol] 9.3 mg/dL Normal 8.6-10.3 [facility] Comment on above: Performed By: #### B MP, HS TROP, CBC #### [facility] [address] [place] [address] [place] Chloride [Moles/Vol] 104 mmol/L Normal 98-[address] [facility] Comment on above: Performed By: #### B MP, HS TROP, CBC #### [facility] [address] [place] [address] [place] CO2 [Moles/Vol] 27.9 mmol/L Normal 21.0-31.0 [facility] Comment on above: Performed By: #### B MP, HS TROP, CBC #### [facility] [address] [place] [address] [place] Creatinine [Mass/Vol] 0.79 mg/dL Normal 0.60-1.20 [facility] Comment on above: Performed By: #### B MP, HS TROP, CBC #### [address] Creatinine Clr Calc Pharmacy 127.26 [facility] Comment on above: Result Comment: PERF ORMED BY: [place] [address] PATHOLOGIST PHOTOCOMPOSITION KEYBOARD OPERATOR MARTY SALGADO M.D. Performed By: #### B MP, HS TROP, CBC #### [place] [address] [place] GFR/1.73 sq M.predicted MDRD (S/P/Bld) [Vol rate/Area] mL/min/{1.73_m2} [facility] Comment on above: Performed By: #### B MP, HS TROP, CBC #### [address] Glucose [Mass/Vol] 92 mg/dL Normal 70-100 [facility] Comment on above: Result Comment: [place] Glucose Reference Range is dependent on time and content of last meal. Glucose of more than 200 mg/dL in a nonstressed, ambulatory subject supports the diagnosis of Diabetes Mellitus. ADA recommended reference range Performed By: #### B MP, HS TROP, CBC #### [address] Potassium [Moles/Vol] 3.9 mmol/L Normal 3.5-5.1 [facility] Comment on above: Performed By: #### B MP, HS TROP, CBC #### [place] [address] [place] Sodium [Moles/Vol] 139 mmol/L Normal 136-145 [facility] Comment on above: Performed By: #### B MP, HS TROP, CBC #### [address] Urea nitrogen [Mass/Vol] 7 mg/dL Normal 7-25 [facility] Comment on above: Performed By: #### B MP, HS TROP, CBC #### [place] [address] [place] Basophils Auto (Bld) [#/Vol] Ordered By: Agustin Sandra on 07-01-2023 Basophils (Bld) [#/Vol] 0.1 10*3/uL 0.0-0.2 [facility] Basophils/100 WBC Auto (Bld) Ordered By: Agustin Sandra on 07-01-2023 Basophils/100 WBC (Bld) 0.6 % . [facility] Bilirubin Test strip Ql (U)O rdered By: Agustin Sandra on 07-01-2023 Bilirubin Ql (U) Negative Negative [facility] Calcium [Mass/volume] in Ser um or PlasmaOrdered By: Agustin Sandra on 07-01-2023 Calcium [Mass/Vol] 9.3 mg/dL 8.6-10.3 [facility] Carbon dioxide, total [Moles /volume] in Serum or PlasmaOrdered By: Agustin Sandra on 07-01-2023 CO2 [Moles/Vol] 27.9 mmol/L 21.0-31.0 [facility] Chloride [Moles/volume] in S brian or PlasmaOrdered By: Agustin Sandra on 07-01-2023 Chloride [Moles/Vol] 104 mmol/L 98-[address] [facility] Color Auto (U)Ordered By: Naun Sandra on 07-01-2023 Color (U) Yellow Yellow [facility] Complete Blood Count Auto Di ffon 07-01-2023 Basophils (Bld) [#/Vol] 0.1 10*3/uL Normal 0.0-0.2 [facility] Comment on above: Result Comment: PERF ORMED BY: [place] [address] PATHOLOGIST PHOTOCOMPOSITION KEYBOARD OPERATOR MARTY SALGADO M.D. Performed By: #### B MP, HS TROP, CBC #### [facility] [address] [place] [address] [place] Basophils/100 WBC (Bld) 0.6 % Normal . [facility] Comment on above: Performed By: #### B MP, HS TROP, CBC #### [facility] [address] [place] [id number] [place] Eosinophils (Bld) [#/Vol] 0.1 10*3/uL Normal 0.0-0.45 [facility] Comment on above: Performed By: #### B MP, HS TROP, CBC #### [facility] [address] Eosinophils/100 WBC (Bld) 1.1 % Normal . [facility] Comment on above: Performed By: #### B MP, HS TROP, CBC #### [facility] [address] Erythrocyte distribution width (RBC) [Ratio] 16.1 % High 11.9-15.3 [facility] Comment on above: Performed By: #### B MP, HS TROP, CBC #### [address] Hematocrit (Bld) [Volume fraction] 38.1 % Normal 34.0-46.4 [facility] Comment on above: Performed By: #### B MP, HS TROP, CBC #### [address] Hemoglobin (Bld) [Mass/Vol] 12.3 g/dL Normal 11.8-15.4 [facility] Comment on above: Performed By: #### B MP, HS TROP, CBC #### [address] Lymphocytes (Bld) [#/Vol] 0.7 10*3/uL Low 1.00-4.8 [facility] Comment on above: Performed By: #### B MP, HS TROP, CBC #### [address] Lymphocytes/100 WBC (Bld) 8.1 % Normal . [facility] Comment on above: Performed By: #### B MP, HS TROP, CBC #### [address] MCH (RBC) [Entitic mass] 23.0 pg Low 24.7-34.3 [facility] Comment on above: Performed By: #### B MP, HS TROP, CBC #### [facility] [address] [place] [address] [place] MCV (RBC) [Entitic vol] 71.2 fL Low 80-100 [facility] Comment on above: Performed By: #### B MP, HS TROP, CBC #### [facility] [address] Mean Corpuscular HGB Conc 32.3 g/dL Normal 32.0-35.0 [facility] Comment on above: Performed By: #### B MP, HS TROP, CBC #### [facility] [address] [place] [address] [place] Monocytes (Bld) [#/Vol] 0.7 10*3/uL Normal 0.0-0.8 [facility] Comment on above: Performed By: #### B MP, HS TROP, CBC #### [address] Monocytes/100 WBC (Bld) 24.10 % High 0.00-20.00 [facility] Comment on above: Result Comment: For adults in ED, MDW > 20.0 may be associated with a higher risk of sepsis during the first 12 hrs of hospital admission Performed By: #### B MP, HS TROP, CBC #### [address] Monocytes/100 WBC (Bld) 8.5 % Normal . [facility] Comment on above: Performed By: #### B MP, HS TROP, CBC #### [facility] [address] [place] [address] [place] Neutrophils (Bld) [#/Vol] 6.7 10*3/uL Normal 1.8-7.7 [facility] Comment on above: Performed By: #### B MP, HS TROP, CBC #### [place] [address] [place] Neutrophils/100 WBC (Bld) 81.7 % Normal . [facility] Comment on above: Performed By: #### B MP, HS TROP, CBC #### [facility] [address] [place] [address] [place] NRBC% 0.0 /100{WBC} Normal 0-0.5 [facility] Comment on above: Performed By: #### B MP, HS TROP, CBC #### [facility] [address] Platelet mean volume (Bld) [Entitic vol] 7.4 fL Normal 6.3-10.7 [facility] Comment on above: Performed By: #### B MP, HS TROP, CBC #### [facility] [address] Platelets (Bld) [#/Vol] 320 10*3/uL Normal 150-450 [facility] Comment on above: Performed By: #### B MP, HS TROP, CBC #### [address] RBC (Bld) [#/Vol] 5.35 10*6/uL High 3.60-5.00 [facility] Comment on above: Performed By: #### B MP, HS TROP, CBC #### [address] WBC (Bld) [#/Vol] 8.2 10*3/uL Normal 3.8-11.6 [facility] Comment on above: Performed By: #### B MP, HS TROP, CBC #### [address] Creatinine [Mass/volume] in Serum or PlasmaOrdered By: Agustin Sandra on 07-01-2023 Creatinine [Mass/Vol] 0.79 mg/dL 0.60-1.20 [facility] Dipstick and Microscopicon 0 07-01-2023 Appearance (U) Cloudy Critically abnormal Clear [facility] Comment on above: Order Comment: Name Collection Type:: Clean-Voided Midstream Performed By: #### B MP, HS TROP, CBC #### [address] Bacteria,Urine None Seen Normal None Seen [facility] Comment on above: Order Comment: Name Collection Type:: Clean-Voided Midstream Performed By: #### B MP, HS TROP, CBC #### [facility] [address] [place] [address] [place] Bilirubin,Urine Negative Normal Negative [facility] Comment on above: Order Comment: Name Collection Type:: Clean-Voided Midstream Performed By: #### B MP, HS TROP, CBC #### [facility] [address] [place] [address] [place] Color (U) Yellow Normal Yellow [facility] Comment on above: Order Comment: Name Collection Type:: Clean-Voided Midstream Performed By: #### B MP, HS TROP, CBC #### [facility] [address] Glucose Ql (U) Normal Normal Normal [facility] Comment on above: Order Comment: Name Collection Type:: Clean-Voided Midstream Performed By: #### B MP, HS TROP, CBC #### [facility] [address] [place] [address] [place] Hyaline Casts,Urine None Seen Normal 0-8 [facility] Comment on above: Order Comment: Name Collection Type:: Clean-Voided Midstream Performed By: #### B MP, HS TROP, CBC #### [facility] [address] [place] [address] Ketones Ql (U) Negative Normal Negative [facility] Comment on above: Order Comment: Name Collection Type:: Clean-Voided Midstream Performed By: #### B MP, HS TROP, CBC #### [facility] [address] [place] [address] [place] Leukocyte esterase Test strip Ql (U) Negative Normal Negative [facility] Comment on above: Order Comment: Name Collection Type:: Clean-Voided Midstream Performed By: #### B MP, HS TROP, CBC #### [facility] [address] [place] [address] [place] Nitrite,Urine Negative Normal Negative [facility] Comment on above: Order Comment: Name Collection Type:: Clean-Voided Midstream Performed By: #### B MP, HS TROP, CBC #### [facility] [address] [place] [address] [place] Occult Blood,Urine Trace High Negative [facility] Comment on above: Order Comment: Name Collection Type:: Clean-Voided Midstream Performed By: #### B MP, HS TROP, CBC #### [address] pH (U) 8.5 [pH] Normal 5.0-9.0 [facility] Comment on above: Order Comment: Name Collection Type:: Clean-Voided Midstream Performed By: #### B MP, HS TROP, CBC #### [address] Protein,Urine Negative Normal Negative [facility] Comment on above: Order Comment: Name Collection Type:: Clean-Voided Midstream Performed By: #### B MP, HS TROP, CBC #### [address] RBC,Urine 5-9 High 0-4 [facility] Comment on above: Order Comment: Name Collection Type:: Clean-Voided Midstream Performed By: #### B MP, HS TROP, CBC #### [address] Specificy [place],Urine 1.012 Normal 1.001-1.030 [facility] Comment on above: Order Comment: Name Collection Type:: Clean-Voided Midstream Performed By: #### B MP, HS TROP, CBC #### [address] Squamous Epithelial Cell,Urine 0-1 Normal 0-2 [facility] Comment on above: Order Comment: Name Collection Type:: Clean-Voided Midstream Performed By: #### B MP, HS TROP, CBC #### [facility] [address] [place] [address] Urobilinogen,Urine Normal Normal Normal [facility] Comment on above: Order Comment: Name Collection Type:: Clean-Voided Midstream Performed By: #### B MP, HS TROP, CBC #### [facility] [address] [place] [address] [place] WBC LM.HPF (Urine sed) [#/Area] 0 /[HPF] Normal 0-4 [facility] Comment on above: Order Comment: Name Collection Type:: Clean-Voided Midstream Performed By: #### B MP, HS TROP, CBC #### [facility] [address] Eosinophils Auto (Bld) [#/Vo l]Ordered By: Agustin Sandra on 07-01-2023 Eosinophils (Bld) [#/Vol] 0.1 10*3/uL 0.0-0.45 [facility] Eosinophils/100 WBC Auto (Bl d)Ordered By: Agustin Sandra on 07-01-2023 Eosinophils/100 WBC (Bld) 1.1 % . [facility] Erythrocyte distribution wid th Auto (RBC) [Ratio]Ordered By: Agustin Sandra on 07-01-2023 Erythrocyte distribution width (RBC) [Ratio] 16.1 % 11.9-15.3 [facility] Glucose [Mass/volume] in Ser um or PlasmaOrdered By: Agustin Sandra on 07-01-2023 Glucose [Mass/Vol] 92 mg/dL 70-100 [facility] Comment on above: ADA recommended refe rence rangeRandom Glucose Reference Range is dependent on time and content of last meal. Glucose of more than 200 mg/dL in a nonstressed, ambulatory subject supports the diagnosis of Diabetes Mellitus. HCG ( test) IA.rapi d Ql (U)Ordered By: Agustin Sandra on 07-01-2023 HCG ( test) Ql (U) Negative [facility] HCG,Urineon 07-01-2023 Beta HCG ( test) Ql (U) Negative Normal [facility] Comment on above: Order Comment: Name Collection Type:: Clean-Voided Midstream Result Comment: PERF ORMED BY: [place] [address] PATHOLOGIST PHOTOCOMPOSITION KEYBOARD OPERATOR MARTY SALGADO M.D. Performed By: #### B MP, HS TROP, CBC #### [facility] [address] Hematocrit Auto (Bld) [Volum e fraction]Ordered By: Agustin Sandra on 07-01-2023 Hematocrit (Bld) [Volume fraction] 38.1 % 34.0-46.4 [facility] Hemoglobin [Mass/volume] in BloodOrdered By: Agustin Sandra on 07-01-2023 Hemoglobin (Bld) [Mass/Vol] 12.3 g/dL 11.8-15.4 [facility] Ketones Auto test strip (U) [Mass/Vol]Ordered By: Agustin Sandra on 07-01-2023 Ketones (U) [Mass/Vol] Negative Negative Fi [facility] - UrinalysisOrder ed By: Agustin Sandra on 07-01-2023 Hyaline casts LM Ql (Urine sed) None seen [LPF] 0-8 [facility] Leukocytes [#/volume] correc abdias for nucleated erythrocytes in Blood by Automated counOrdered By: Agustin Sandra on 07-01-2023 WBC corrected for nucl RBC Auto (Bld) [#/Vol] 8.2 10*3/uL 3.8-11.6 [facility] Lymphocytes Auto (Bld) [#/Vo l]Ordered By: Agustin Sandra on 07-01-2023 Lymphocytes (Bld) [#/Vol] 0.7 10*3/uL 1.00-4.8 [facility] Lymphocytes/100 WBC Auto (Bl d)Ordered By: Agustin Sandra on 07-01-2023 Lymphocytes/100 WBC (Bld) 8.1 % . [facility] MCH Auto (RBC) [Entitic mass ]Ordered By: Agustin Sandra on 07-01-2023 MCH (RBC) [Entitic mass] 23.0 pg 24.7-34.3 [facility] MCHC Auto (RBC) [Mass/Vol]Or dered By: Agustin Sandra on 07-01-2023 MCHC (RBC) [Mass/Vol] 32.3 g/dL 32.0-35.0 [facility] MCV Auto (RBC) [Entitic vol] Ordered By: Agustin Sandra on 07-01-2023 MCV (RBC) [Entitic vol] 71.2 fL 80-100 [facility] Monocyte distribution width [Entitic volume] in Blood by AutomatedOrdered By: Agustin Sandra on 07-01-2023 Monocyte distribution width Auto (Bld) [Entitic vol] 24.10 % 0.00-20.00 [facility] Comment on above: For adults in ED, MD W > 20.0 may be associated with a higher risk of sepsis during the first 12 hrs of hospital admission Monocytes Auto (Bld) [#/Vol] Ordered By: Agustin Sandra on 07-01-2023 Monocytes (Bld) [#/Vol] 0.7 10*3/uL 0.0-0.8 [facility] Monocytes/100 WBC Auto (Bld) Ordered By: Agustin Sandra on 07-01-2023 Monocytes/100 WBC (Bld) 8.5 % . [facility] Neutrophils Auto (Bld) [#/Vo l]Ordered By: Agustin Sandra on 07-01-2023 Neutrophils (Bld) [#/Vol] 6.7 10*3/uL 1.8-7.7 [facility] Neutrophils/100 WBC Auto (Bl d)Ordered By: Agustin Sandra on 07-01-2023 Neutrophils/100 WBC (Bld) 81.7 % . [facility] Nitrite Test strip Ql (U)Ord ered By: Agustin Sandra on 07-01-2023 Nitrite Ql (U) Negative Negative [facility] No Panel InformationOrdered By: Agustin Sandra on 07-01-2023 Estimated GFR (CKD-EPI) > 60.0 mL/Min [facility] Creatinine Clearance (Chem 127.26 [facility] Nucleated erythrocytes [Pres ence] in Blood by Automated countOrdered By: Agustin Sandra on 07-01-2023 Nucleated RBC Auto Ql (Bld) 0.0 /100{WBC} 0-0.5 [facility] Platelet mean volume Auto (B ld) [Entitic vol]Ordered By: Agustin Sandra on 07-01-2023 Platelet mean volume (Bld) [Entitic vol] 7.4 fL 6.3-10.7 [facility] Platelets Auto (Bld) [#/Vol] Ordered By: Agustin Sandra on 07-01-2023 Platelets (Bld) [#/Vol] 320 10*3/uL 150-450 [facility] Potassium [Moles/volume] in Serum or PlasmaOrdered By: Agustin Sandra on 07-01-2023 Potassium [Moles/Vol] 3.9 mmol/L 3.5-5.1 [facility] Protein Auto test strip (U) [Mass/Vol]Ordered By: Agustin Sandra on 07-01-2023 Protein (U) [Mass/Vol] Negative Negative Fi [facility] RBC Auto (Bld) [#/Vol]Ordere d By: Agustin Sandra on 07-01-2023 RBC (Bld) [#/Vol] 5.35 10*6/uL 3.60-5.00 [facility] Serum or plasma anion gap de terminationOrdered By: Agustin Sandra on 07-01-2023 Anion gap [Moles/Vol] 11.0 mmol/L 6.0-15.0 [facility] Sodium [Moles/volume] in Ser um or PlasmaOrdered By: Agustin Sandra on 07-01-2023 Sodium [Moles/Vol] 139 mmol/L 136-145 [facility] Specific gravity Auto test s trip (U) [Rel density]Ordered By: Agustin Sandra on 07-01-2023 Specific gravity (U) [Rel density] 1.012 1.001-1.030 [facility] Squamous epithelial cells de tection in urine sediment by light microscopyOrdered By: Agustin Sandra 07-01-2023 Epithelial cells.squamous LM Ql (Urine sed) 0-1 [HPF] 0-2 [facility] Urea nitrogen [Mass/volume] in Serum or PlasmaOrdered By: Agustin Sandra on 07-01-2023 Urea nitrogen [Mass/Vol] 7 mg/dL 7-25 [facility] Urine bacteria detection by automated methodOrdered By: Agustin Sandra on 07-01-2023 Bacteria Auto Ql (U) None seen None Seen [facility] Urine clarity by refractomet ry automatedOrdered By: Agustin Sandra on 07-01-2023 Clarity Refractometry automated (U) Cloudy Clear [facility] Urine glucose measurement by automated test strip (mass/volume)Ordered By: Agustin Sandra on 07-01-2023 Glucose Auto test strip (U) [Mass/Vol] Normal mg/dL Normal [facility] Urine hemoglobin detection b y automated test stripOrdered By: Agustin Sandra on 07-01-2023 Hemoglobin Auto test strip Ql (U) Trace Negative [facility] Urine leukocyte esterase det ection by automated test stripOrdered By: Agustin Sandra on 07-01-2023 Leukocyte esterase Auto test strip Ql (U) Negative Negative [facility] Urobilinogen Auto test strip (U) [Mass/Vol]Ordered By: Agustin Sandra on 07-01-2023 Urobilinogen (U) [Mass/Vol] Normal mg/dL Normal [facility] WBC Auto (Bld) [#/Vol]Ordere d By: Agustin Sandra on 07-01-2023 WBC (Bld) [#/Vol] 8.2 10*3/uL 3.8-11.6 [facility] pH Auto test strip (U)Ordere d By: Agustin Sandra on 07-01-2023 pH (U) 8.5 [pH] 5.0-9.[address] [facility] CT head/brain wo conon 06-19 CT head/[place] [address] CT Scan Report Signed Patient: Loy Tam MR#: [id number] : 1980 Acct:[id number] Age/Sex: 42 / F ADM Date: 06/18/23 Loc: ER Room: Type: [facility] [place] Attending Dr: Copies to: Princess Guevara [...] Alan Matta M.D.06/19/2023 10:48 AM Dictation Location: [place] [address] Transcribed By: ILIA 06/19/23 104 Dictated By: Alan Matta II, MD 06/19/231046 Signed By: 06/19/231047 Normal [facility] XR shoulder LT min 2V*on XR shoulder LT min 2V* [facility] [place] [address] XRay Report Signed Patient: Loy Tam MR#: [id number] : 1980 Acct:[id number] Age/Sex: 42 / F ADM Date: 06/18/23 Loc: ER Room: Type: [facility] [place] Attending Dr: Copies to: Princess Guevara [...] Alan Matta M.D.06/19/2023 10:53 AM Dictation Location: [place] [address] Transcribed By: [facility] 06/19/23 1053 Dictated By: Alan Matta II, MD 06/19/23 1049 Signed By: 06/19/23 1053 [facility] ECG 12 lead ECGon 06-18-2023 ECG 12 lead ECG [facility] Main [address] [address] Electrocardiograph Report Signed Patient: Loy Tam MR#: [id number] : 1980 Acct:[id number] Age/Sex: 42 / F ADM Date: 06/18/23 Loc: ER Room: Type: [facility] [place] Attending Dr: Ordering Provider: Gabriel Breaux [...] was found Confirmed by GABRIEL BREAUX MD ([id number]) on 06/19/2023 3:14:16 AM Referred By: Electronically Signed By:GABRIEL BREAUX MD Transcribed By: MUS Signed By Gabriel Breaux Jr, MD 0314 [facility] XR wrist LT min 3V*on 2022 XR wrist LT min 3V* [address] [address] XRay Report Signed Patient: Loy Tam MR#: [id number] : 1980 Acct:[id number] Age/Sex: 42 / F ADM Date: 06/14/23 Loc: SOXD Room: Type: [facility] CLI Attending Dr: Gabriel Rosenberg MD Copies [...] Mendenhall Jr., D.ORosey06/14/2023 2:35 PM Dictation Location: [place] [address] Transcribed By: [facility] 06/14/23 1435 Dictated By: Marquise Mendenhall Jr, DO 06/14/23 1432 Signed By: 06/14/23 1435 Normal [facility] NM priyanka perf SPECT rest stron 06-07-2023 NM priyanka perf SPECT rest str [facility] [place] [address] Nuclear Medicine Report Signed Patient: Loy Tam MR#: [id number] : 1980 Acct:[id number] Age/Sex: 42 / F ADM Date: 05/30/23 Loc: ER Room: Type: [facility] [place] Attending Dr: Copies to: DO Arnoldo [...] MD 06/07/23 1147 Signed By: 06/07/23 1253 [facility] STR cardiac stress/lexiscano n 06-03-2023 STR cardiac stress/lexiscan [facility] [place] [address] Cardiac Stress Test Signed Patient: Loy Tam MR#: [id number] : 1980 Acct:[id number] Age/Sex: 42 / F ADM Date: 05/30/23 Loc: ER Room: Type: [facility] [place] Attending Dr: Copies to: DO Magy Hansen MD, [facility] Ordering Provider: Leonel Guerra DO Date [...] CAILIN 06/03/232034 Dictated By: Magy Donis MD, [facility] 06/03/23 1742 Signed By: 06/06/23 0911 [facility] Basic Metabolic Panelon 07-0 Anion gap [Moles/Vol] 10.2 mmol/L Normal 6.0-15.0 [facility] Comment on above: Performed By: #### B MP, HS TROP, CBC #### [facility] [address] [place] [address] [place] Calcium [Mass/Vol] 9.1 mg/dL Normal 8.6-10.3 [facility] Comment on above: Performed By: #### B MP, HS TROP, CBC #### [facility] [address] [place] [address] [place] Chloride [Moles/Vol] 106 mmol/L Normal 98-[address] [facility] Comment on above: Performed By: #### B MP, HS TROP, CBC #### [facility] [address] [place] [address] [place] CO2 [Moles/Vol] 29.3 mmol/L Normal 21.0-31.0 [facility] Comment on above: Performed By: #### B MP, HS TROP, CBC #### [facility] [address] [place] [address] [place] Creatinine [Mass/Vol] 0.87 mg/dL Normal 0.60-1.20 [facility] Comment on above: Performed By: #### B MP, HS TROP, CBC #### [facility] [address] [place] [address] [place] Creatinine Clr Calc Pharmacy 112.72 [facility] Comment on above: Result Comment: PERF ORMED BY: [place] [address] PATHOLOGIST PHOTOCOMPOSITION KEYBOARD OPERATOR MARTY SALGADO M.D. Performed By: #### B MP, HS TROP, CBC #### [facility] [address] [place] [address] [place] GFR/1.73 sq M.predicted MDRD (S/P/Bld) [Vol rate/Area] mL/min/{1.73_m2} [facility] Comment on above: Performed By: #### B MP, HS TROP, CBC #### [facility] [address] [place] [address] [place] Glucose [Mass/Vol] 91 mg/dL Normal 70-100 [facility] Comment on above: Result Comment: [place] Glucose Reference Range is dependent on time and content of last meal. Glucose of more than 200 mg/dL in a nonstressed, ambulatory subject supports the diagnosis of Diabetes Mellitus. ADA recommended reference range Performed By: #### B MP, HS TROP, CBC #### [facility] [address] Potassium [Moles/Vol] 3.5 mmol/L Normal 3.5-5.1 [facility] Comment on above: Performed By: #### B MP, HS TROP, CBC #### [facility] [address] Sodium [Moles/Vol] 142 mmol/L Normal 136-145 [facility] Comment on above: Performed By: #### B MP, HS TROP, CBC #### [facility] [address] [place] [address] [place] Urea nitrogen [Mass/Vol] 9 mg/dL Normal 7-25 [facility] Comment on above: Performed By: #### B MP, HS TROP, CBC #### [facility] [address] Basophils Auto (Bld) [#/Vol] Ordered By: Leonel Guerra on 05-31-2023 Basophils (Bld) [#/Vol] 0.1 10*3/uL 0.0-0.2 [facility] Basophils/100 WBC Auto (Bld) Ordered By: Leonel Guerra on 05-31-2023 Basophils/100 WBC (Bld) 1.5 % . [facility] Calcium [Mass/volume] in Ser um or PlasmaOrdered By: Leonel Guerra on 05-31-2023 Calcium [Mass/Vol] 9.1 mg/dL 8.6-10.3 [facility] Carbon dioxide, total [Moles /volume] in Serum or PlasmaOrdered By: Leonel Guerra on 05-31-2023 CO2 [Moles/Vol] 29.3 mmol/L 21.0-31.0 [facility] Chloride [Moles/volume] in S brian or PlasmaOrdered By: Leonel Guerra on 05-31-2023 Chloride [Moles/Vol] 106 mmol/L 98-[address] [facility] Complete Blood Count Auto Di ffon 05-31-2023 Basophils (Bld) [#/Vol] 0.1 10*3/uL Normal 0.0-0.2 [facility] Comment on above: Result Comment: PERF ORMED BY: [place] [address] PATHOLOGIST PHOTOCOMPOSITION KEYBOARD OPERATOR MARTY SALGADO M.D. Performed By: #### B MP, HS TROP, CBC #### [facility] [address] [place] [address] [place] Basophils/100 WBC (Bld) 1.5 % Normal . [facility] Comment on above: Performed By: #### B MP, HS TROP, CBC #### [facility] [address] [place] [address] [place] Eosinophils (Bld) [#/Vol] 0.3 10*3/uL Normal 0.0-0.45 [facility] Comment on above: Performed By: #### B MP, HS TROP, CBC #### [facility] [address] [place] [address] [place] Eosinophils/100 WBC (Bld) 3.5 % Normal . [facility] Comment on above: Performed By: #### B MP, HS TROP, CBC #### [facility] [address] Erythrocyte distribution width (RBC) [Ratio] 16.2 % High 11.9-15.3 [facility] Comment on above: Performed By: #### B MP, HS TROP, CBC #### [facility] [address] [place] [address] [place] Hematocrit (Bld) [Volume fraction] 38.8 % Normal 34.0-46.4 [facility] Comment on above: Performed By: #### B MP, HS TROP, CBC #### [facility] [address] [place] [address] [place] Hemoglobin (Bld) [Mass/Vol] 12.4 g/dL Normal 11.8-15.4 [facility] Comment on above: Performed By: #### B MP, HS TROP, CBC #### [facility] [address] [place] [address] [place] Lymphocytes (Bld) [#/Vol] 3.7 10*3/uL Normal 1.00-4.8 [facility] Comment on above: Performed By: #### B MP, HS TROP, CBC #### [facility] [address] [place] [address] [place] Lymphocytes/100 WBC (Bld) 37.9 % Normal . [facility] Comment on above: Performed By: #### B MP, HS TROP, CBC #### [facility] [address] MCH (RBC) [Entitic mass] 23.0 pg Low 24.7-34.3 [facility] Comment on above: Performed By: #### B MP, HS TROP, CBC #### [address] MCV (RBC) [Entitic vol] 72.0 fL Low 80-100 [facility] Comment on above: Performed By: #### B MP, HS TROP, CBC #### [facility] [address] Mean Corpuscular HGB Conc 31.9 g/dL Low 32.0-35.0 [facility] Comment on above: Performed By: #### B MP, HS TROP, CBC #### [facility] [address] [place] [address] [place] Monocytes (Bld) [#/Vol] 0.5 10*3/uL Normal 0.0-0.8 [facility] Comment on above: Performed By: #### B MP, HS TROP, CBC #### [facility] [address] [place] [address] [place] Monocytes/100 WBC (Bld) 18.79 % Normal 0.00-20.00 [facility] Comment on above: Performed By: #### B MP, HS TROP, CBC #### [facility] [address] [place] [address] [place] Monocytes/100 WBC (Bld) 5.1 % Normal . [facility] Comment on above: Performed By: #### B MP, HS TROP, CBC #### [facility] [address] Neutrophils (Bld) [#/Vol] 5.1 10*3/uL Normal 1.8-7.7 [facility] Comment on above: Performed By: #### B MP, HS TROP, CBC #### [facility] [address] Neutrophils/100 WBC (Bld) 52.0 % Normal . [facility] Comment on above: Performed By: #### B MP, HS TROP, CBC #### [facility] [address] NRBC% 0.2 /100{WBC} Normal 0-0.5 [facility] Comment on above: Performed By: #### B MP, HS TROP, CBC #### [address] Platelet mean volume (Bld) [Entitic vol] 7.3 fL Normal 6.3-10.7 [facility] Comment on above: Performed By: #### B MP, HS TROP, CBC #### [place] [address] [place] Platelets (Bld) [#/Vol] 349 10*3/uL Normal 150-450 [facility] Comment on above: Performed By: #### B MP, HS TROP, CBC #### [facility] [address] [place] [address] [place] RBC (Bld) [#/Vol] 5.39 10*6/uL High 3.60-5.00 [facility] Comment on above: Performed By: #### B MP, HS TROP, CBC #### [place] [address] [place] WBC (Bld) [#/Vol] 9.9 10*3/uL Normal 3.8-11.6 [facility] Comment on above: Performed By: #### B MP, HS TROP, CBC #### [address] [place] [address] [facility] Creatinine [Mass/volume] in Serum or PlasmaOrdered By: Leonel Guerra on 05-31-2023 Creatinine [Mass/Vol] 0.87 mg/dL 0.60-1.20 [facility] ECG 12 lead ECGon 05-31-2023 ECG 12 lead ECG [facility] Main [place] [address] [place] [address] Electrocardiograph Report Signed Patient: Lyo Tam MR#: [id number] : 1980 Acct:[id number] Age/Sex: 42 / F ADM Date: 05/30/23 Loc: ER Room: Type: [facility] ER Attending Dr: Ordering Provider: Leonel [...] was found Confirmed by LEONEL GUERRA DO ([id number]) on 05/31/2023 2:06:12 AM Referred By: Electronically Signed By:LEONEL GUERRA DO Transcribed By: MUS Signed By Leonel Guerra DO 05/31 0206 Normal [facility] Eosinophils Auto (Bld) [#/Vo l]Ordered By: Leonel Guerra on 05-31-2023 Eosinophils (Bld) [#/Vol] 0.3 10*3/uL 0.0-0.45 [facility] Eosinophils/100 WBC Auto (Bl d)Ordered By: Leonel Guerra on 05-31-2023 Eosinophils/100 WBC (Bld) 3.5 % . [facility] Erythrocyte distribution wid th Auto (RBC) [Ratio]Ordered By: Leonel Guerra on 05-31-2023 Erythrocyte distribution width (RBC) [Ratio] 16.2 % 11.9-15.3 [facility] Glucose [Mass/volume] in Ser um or PlasmaOrdered By: Leonel Guerra on 05-31-2023 Glucose [Mass/Vol] 91 mg/dL 70-100 [facility] Comment on above: ADA recommended refe rence rangeRandom Glucose Reference Range is dependent on time and content of last meal. Glucose of more than 200 mg/dL in a nonstressed, ambulatory subject supports the diagnosis of Diabetes Mellitus. Hematocrit Auto (Bld) [Volum e fraction]Ordered By: Leonel Guerra on 05-31-2023 Hematocrit (Bld) [Volume fraction] 38.8 % 34.0-46.4 [facility] Hemoglobin [Mass/volume] in BloodOrdered By: Leonel Guerra on 05-31-2023 Hemoglobin (Bld) [Mass/Vol] 12.4 g/dL 11.8-15.4 [facility] Leukocytes [#/volume] correc abdias for nucleated erythrocytes in Blood by Automated counOrdered By: Leonel Guerra on 05-31-2023 WBC corrected for nucl RBC Auto (Bld) [#/Vol] 9.9 10*3/uL 3.8-11.6 [facility] Lymphocytes Auto (Bld) [#/Vo l]Ordered By: Leonel Guerra on 05-31-2023 Lymphocytes (Bld) [#/Vol] 3.7 10*3/uL 1.00-4.8 [facility] Lymphocytes/100 WBC Auto (Bl d)Ordered By: Leonel Guerra on 05-31-2023 Lymphocytes/100 WBC (Bld) 37.9 % . [facility] MCH Auto (RBC) [Entitic mass ]Ordered By: Leonel Guerra on 05-31-2023 MCH (RBC) [Entitic mass] 23.0 pg 24.7-34.3 [facility] MCHC Auto (RBC) [Mass/Vol]Or dered By: Leonel Guerra on 05-31-2023 MCHC (RBC) [Mass/Vol] 31.9 g/dL 32.0-35.0 [facility] MCV Auto (RBC) [Entitic vol] Ordered By: Leonel Guerra on 05-31-2023 MCV (RBC) [Entitic vol] 72.0 fL 80-100 [facility] Monocyte distribution width [Entitic volume] in Blood by AutomatedOrdered By: Leonel Guerra on 05-31-2023 Monocyte distribution width Auto (Bld) [Entitic vol] 18.79 % 0.00-20.00 [facility] Monocytes Auto (Bld) [#/Vol] Ordered By: Leonel Guerra on 05-31-2023 Monocytes (Bld) [#/Vol] 0.5 10*3/uL 0.0-0.8 [facility] Monocytes/100 WBC Auto (Bld) Ordered By: Leonel Guerra on 05-31-2023 Monocytes/100 WBC (Bld) 5.1 % . [facility] Neutrophils Auto (Bld) [#/Vo l]Ordered By: Leonel Guerra on 05-31-2023 Neutrophils (Bld) [#/Vol] 5.1 10*3/uL 1.8-7.7 [facility] Neutrophils/100 WBC Auto (Bl d)Ordered By: Leonel Guerra on 05-31-2023 Neutrophils/100 WBC (Bld) 52.0 % . [facility] No Panel InformationOrdered By: Leonel Guerra on 05-31-2023 Estimated GFR (CKD-EPI) > 60.0 mL/Min [facility] Creatinine Clearance (Chem 112.72 [facility] Nucleated erythrocytes [Pres ence] in Blood by Automated countOrdered By: Leonel Guerra on 05-31-2023 Nucleated RBC Auto Ql (Bld) 0.2 /100{WBC} 0-0.5 [facility] Platelet mean volume Auto (B ld) [Entitic vol]Ordered By: Leonel Guerra on 05-31-2023 Platelet mean volume (Bld) [Entitic vol] 7.3 fL 6.3-10.7 [facility] Platelets Auto (Bld) [#/Vol] Ordered By: Leonel Guerra on 05-31-2023 Platelets (Bld) [#/Vol] 349 10*3/uL 150-450 [facility] Potassium [Moles/volume] in Serum or PlasmaOrdered By: Leonel Guerra on 05-31-2023 Potassium [Moles/Vol] 3.5 mmol/L 3.5-5.1 [facility] RBC Auto (Bld) [#/Vol]Ordere d By: Leonel Guerra on 05-31-2023 RBC (Bld) [#/Vol] 5.39 10*6/uL 3.60-5.00 [facility] Serum or plasma anion gap de terminationOrdered By: Leonel Guerra on 05-31-2023 Anion gap [Moles/Vol] 10.2 mmol/L 6.0-15.0 [facility] Sodium [Moles/volume] in Ser um or PlasmaOrdered By: Leonel Guerra on 05-31-2023 Sodium [Moles/Vol] 142 mmol/L 136-145 [facility] Troponin I High Sensitivityo n 05-31-2023 Troponin I High Sensitivity 5.9 pg/mL Normal 0.0-15.0 [facility] Comment on above: Result Comment: PERF ORMED BY: [facility] [address] [place] [address] PATHOLOGIST PHOTOCOMPOSITION KEYBOARD OPERATOR MARTY SALGADO M.D. Performed By: #### B MP, HS TROP, CBC #### [facility] [address] [place] [address] Troponin I High Sensitivity 6.5 pg/mL Normal 0.0-15.0 [facility] Comment on above: Result Comment: PERF ORMED BY: [place] [address] PATHOLOGIST PHOTOCOMPOSITION KEYBOARD OPERATOR MARTY SALGADO M.D. Performed By: #### B MP, HS TROP, CBC #### [facility] [address] [place] [address] [place] Troponin I.cardiac [Mass/vol ume] in Serum or Plasma by Detection limit <= 0.01 ng/Ordered By: Leonel Guerra on 05-31-2023 Troponin I.cardiac DL <= 0.01 ng/mL [Mass/Vol] 5.9 pg/mL 0.0-15.0 [facility] Urea nitrogen [Mass/volume] in Serum or PlasmaOrdered By: Leonle Guerra on 05-31-2023 Urea nitrogen [Mass/Vol] 9 mg/dL 7-25 [facility] WBC Auto (Bld) [#/Vol]Ordere d By: Leonel Guerra on 05-31-2023 WBC (Bld) [#/Vol] 9.9 10*3/uL 3.8-11.6 [facility] XR chest 2V*on 05-31-2023 XR chest 2V* [facility] Main [address] [address] XRay Report Signed Patient: Loy Tam MR#: [id number] : 1980 Acct:[id number] Age/Sex: 42 / F ADM Date: 05/30/23 Loc: ER Room: Type: DEP ER Attending Dr: Copies to: Leonel Guerra [...] Ancelmo Castellano M.D.05/31/2023 8:23 AM Dictation Location: [place] [address] Transcribed By: [facility] 05/31/23822 Dictated By: Ancelmo Castellano DO 05/31/23822 Signed By: 05/31/2323 Normal [facility] XR wrist LT min 3V*on 2022 XR wrist LT min 3V* [facility] Main [address] [address] XRay Report Signed Patient: Loy Tam MR#: [id number] : 1980 Acct:[id number] Age/Sex: 42 / F ADM Date: 04/18/23 [...] Alan Matta M.D.04/18/2023 1:04 PM Dictation Location: [place] [address] Transcribed By: [facility] 04/18/23 1304 Dictated By: Alan Matta II, MD 04/18/23 1302 Signed By: 04/18/23 1304 Normal [facility] Monoteston 01-19-2023 Monotest Negative Normal Negative [facility] Comment on above: Result Comment: PERF ORMED BY: [place] [address] PATHOLOGIST PHOTOCOMPOSITION KEYBOARD OPERATOR MARTY SALGADO M.D. Performed By: #### M ONOTEST #### [address] Quick Strepon 01-19-2023 Quick Strep Streptococcus pyogenes Ag [Presence] in Throat by Rapid immunoassay Negative for Group A Strep Antigen Note 1 NOTE 2 Results are those of a screening test. NOTE 3 If clinically indicated please order a culture. NOTE 4 NOTE 5 Reference range = Negative PERFORMED BY: [place] [address] PATHOLOGIST PHOTOCOMPOSITION KEYBOARD OPERATOR MARTY SALGADO M.D. Normal [facility] Comment on above: Performed By: #### Q S #### [address] Serum heterophile antibody d etection by latex agglutinationOrdered By: Arnoldo Pérez on 01-19-2023 Heterophile Ab LA Ql (S) Negative Negative [facility] Streptococcus pyogenes antig en detectionOrdered By: Arnoldo Pérez on 01-19-2023 S. pyogenes Ag Ql (Unsp spec) [facility] COVID CepheidOrdered By: Radha Cooper on 01-08-2023 SARS-CoV-2 (COVID-19) Ab IA Ql Negative Negative [facility] Comment on above: This is a duplicate Cepheid Xpert Xpress CoV-2/Flu/RSV Plus RNA by RT-PCR result to be used for statistical tracking purpose only. SARS-CoV-2 (COVID-19) RNA AMBROSE+probe Ql (Unsp spec) [facility] COVID-19 / Flu A/B / RSV [...] or Cepheid Disclaimer revoked sooner. PERFORMED BY: [place] [address] PATHOLOGIST PHOTOCOMPOSITION KEYBOARD OPERATOR MARTY SALGADO M.D. Normal [facility] Comment on above: Performed By: #### C OVID19 FLU RSV, QS, CEPHEID NEG #### [address] Cepheid COVID PCR Negativeon 01-08-2023 SARS-CoV-2 (COVID-19) RNA AMBROSE+probe Ql (Unsp spec) Negative Normal Negative [facility] Comment on above: Result Comment: This is a duplicate Cepheid Xpert Xpress CoV-2/Flu/RSV Plus RNA by RT-PCR result to be used for statistical tracking purpose only. PERFORMED BY: [place] [address] PATHOLOGIST PHOTOCOMPOSITION KEYBOARD OPERATOR MARTY SALGADO M.D. Performed By: #### C OVID19 FLU RSV, QS, CEPHEID NEG #### [address] Quick Strepon 01-08-2023 Quick Strep Streptococcus pyogenes Ag [Presence] in Throat by Rapid immunoassay Negative for Group A Strep Antigen Note 1 NOTE 2 Results are those of a screening test. NOTE 3 If clinically indicated please order a culture. NOTE 4 NOTE 5 Reference range = Negative PERFORMED BY: [place] [address] PATHOLOGIST PHOTOCOMPOSITION KEYBOARD OPERATOR MARTY SALGADO M.D. [facility] Comment on above: Performed By: #### C OVID19 FLU RSV, QS, CEPHEID NEG #### [facility] [address] [place] [address] Quick Strepon 01-04-2023 Quick Strep Streptococcus pyogenes Ag [Presence] in Throat by Rapid immunoassay Negative for Group A Strep Antigen Note 1 NOTE 2 Results are those of a screening test. NOTE 3 If clinically indicated please order a culture. NOTE 4 NOTE 5 Reference range = Negative PERFORMED BY: [place] [address] PATHOLOGIST PHOTOCOMPOSITION KEYBOARD OPERATOR MARTY SALGADO M.D. [facility] Comment on above: Performed By: #### Q S #### [facility] [address] [place] [address] Streptococcus pyogenes antig en detectionOrdered By: Caitlyn Cooper on 01-04-2023 S. pyogenes Ag Ql (Unsp spec) [facility] COVID CepheidOrdered By: Cachorro Breaux on 11-17-2022 SARS-CoV-2 (COVID-19) Ab IA Ql Negative Negative [facility] Comment on above: This is a duplicate [employer] Xpert Xpress CoV-2/Flu/RSV Plus RNA by RT-PCR result to be used for statistical tracking purpose only. SARS-CoV-2 (COVID-19) RNA AMBROSE+probe Ql (Unsp spec) [facility] SARS-CoV-2 (COVID-19) RNA AMBROSE+probe Ql (Unsp spec) [facility] COVID-19 SOFIAOrdered By: Jose Pearl on 08-23-2022 SARS-CoV+SARS-CoV-2 (COVID-19) Ag IA.rapid Ql (Resp) Negative Negative [facility] Comment on above: This is a duplicate Lilibeth SARS Antigen (REGINO) result to be used for statistical tracking purpose only. No Panel InformationOrdered By: Praveen Pearl on 08-23-2022 SARS Antigen (LFIA) [facility] POINT OF CARE GLUCOSEon 05-0 Glucose [Mass/Vol] 116 mg/dL Critically high 74-106 [facility] Comment on above: Performed By: #### P OCGLUC #### [facility] [address] [place] [address] [address] Mai Salamanca PREG HCG QUALon 03-30-2022 , QUAL Negative Normal NEGATIVE [facility] Comment on above: Performed By: #### P REG #### [facility] [address] [place] [address] [address] Mai Salamanca Vital Signs Date Time Vital Sign Value Performing Clinician Facility 07-01-2023 11:53-0400 Diastolic blood pressure 85 mm[Hg] [facility] Work Phone: [facility] 07-01-2023 11:53-0400 Heart rate 92 /min Services [employer] [facility] Work Phone: [facility] 07-01-2023 11:53-0400 Systolic blood pressure 149 mm[Hg] [facility] Work Phone: [facility] 07-01-2023 09:37-0400 Body height 176.53 cm [facility] Work Phone: [facility] 07-01-2023 09:37-0400 Body temperature 99.3 [degF] [facility] Work Phone: [facility] 07-01-2023 09:37-0400 Body weight 122.46 kg [facility] Work Phone: [facility] 07-01-2023 09:37-0400 Respiratory rate 24 /min [facility] Work Phone: [facility] 07-01-2023 09:37-0400 SaO2% (BldA) [Mass fraction] 99 % [facility] Work Phone: [facility] 06-19-2023 00:00-0400 Diastolic blood pressure 61 mm[Hg] [facility] Work Phone: [facility] 06-19-2023 00:00-0400 Heart rate 71 /min [facility] Work Phone: [facility] 06-19-2023 00:00-0400 Respiratory rate 20 /min [facility] Work Phone: [facility] 06-19-2023 00:00-0400 SaO2% (BldA) [Mass fraction] 100 % [facility] Work Phone: [facility] 06-19-2023 00:00-0400 Systolic blood pressure 129 mm[Hg] [facility] Work Phone: [facility] 06-18-2023 21:21-0400 Body height 175.26 cm [facility] Work Phone: [facility] 06-18-2023 21:21-0400 Body weight 117.02 kg [facility] Work Phone: [facility] 06-18-2023 21:20-0400 Body temperature 98.6 [degF] [facility] Work Phone: [facility] 06-03-2023 11:58-0400 Diastolic blood pressure 90 mm[Hg] [facility] Work Phone: [facility] 06-03-2023 11:58-0400 Heart rate 91 /min [facility] Work Phone: [facility] 06-03-2023 11:58-0400 Systolic blood pressure 145 mm[Hg] [facility] Work Phone: [facility] 05-31-2023 04:30-0400 Diastolic blood pressure 82 mm[Hg] [facility] Work Phone: [facility] 05-31-2023 04:30-0400 Heart rate 75 /min [facility] Work Phone: [facility] 05-31-2023 04:30-0400 Respiratory rate 20 /min [facility] Work Phone: [facility] 05-31-2023 04:30-0400 SaO2% (BldA) [Mass fraction] 98 % [facility] Work Phone: [facility] 05-31-2023 04:30-0400 Systolic blood pressure 150 mm[Hg] [facility] Work Phone: [facility] 05-30-2023 23:32-0400 Body height 176.53 cm [facility] Work Phone: [facility] 05-30-2023 23:32-0400 Body temperature 98.2 [degF] [facility] Work Phone: [facility] 05-30-2023 23:32-0400 Body weight 117.02 kg [facility] Work Phone: [facility] 04-18-2023 12:10-0400 Body temperature 98.2 [degF] [facility] Work Phone: [facility] 04-18-2023 12:10-0400 Diastolic blood pressure 91 mm[Hg] [facility] Work Phone: [facility] 04-18-2023 12:10-0400 Heart rate 86 /min [facility] Work Phone: [facility] 04-18-2023 12:10-0400 Respiratory rate 18 /min [facility] Work Phone: [facility] 04-18-2023 12:10-0400 SaO2% (BldA) [Mass fraction] 100 % [facility] Work Phone: [facility] 04-18-2023 12:10-0400 Systolic blood pressure 169 mm[Hg] [facility] Work Phone: [facility] 04-18-2023 12:06-0400 Body height 175.26 cm [facility] Work Phone: [facility] 04-18-2023 12:06-0400 Body weight 129.1 kg [facility] Work Phone: [facility] 01-19-2023 09:40-0500 Diastolic blood pressure 67 mm[Hg] [facility] Work Phone: [facility] 01-19-2023 09:40-0500 Heart rate 86 /min [facility] Work Phone: [facility] 01-19-2023 09:40-0500 Respiratory rate 20 /min [facility] Work Phone: [facility] 01-19-2023 09:40-0500 SaO2% (BldA) [Mass fraction] 100 % [facility] Work Phone: [facility] 01-19-2023 09:40-0500 Systolic blood pressure 145 mm[Hg] [facility] Work Phone: [facility] 01-19-2023 07:19-0500 Body height 175.26 cm [facility] Work Phone: [facility] 01-19-2023 07:19-0500 Body temperature 98 [degF] [facility] Work Phone: [facility] 01-19-2023 07:19-0500 Body weight 127.3 kg [facility] Work Phone: [facility] 01-08-2023 14:52-0500 Body height 176.53 cm [facility] Work Phone: [facility] 01-08-2023 14:52-0500 Body temperature 98.9 [degF] [facility] Work Phone: [facility] 01-08-2023 14:52-0500 Body weight 124.45 kg [facility] Work Phone: [facility] 01-08-2023 14:52-0500 Diastolic blood pressure 74 mm[Hg] [facility] Work Phone: [facility] 01-08-2023 14:52-0500 Heart rate 93 /min [facility] Work Phone: [facility] 01-08-2023 14:52-0500 Respiratory rate 20 /min [facility] Work Phone: [facility] 01-08-2023 14:52-0500 SaO2% (BldA) [Mass fraction] 98 % [facility] Work Phone: [facility] 01-08-2023 14:52-0500 Systolic blood pressure 143 mm[Hg] [facility] Work Phone: [facility] 01-04-2023 11:34-0500 Body height 175.26 cm [facility] Work Phone: [facility] 01-04-2023 11:34-0500 Body temperature 98.7 [degF] [facility] Work Phone: [facility] 01-04-2023 11:34-0500 Body weight 107.9 kg [facility] Work Phone: [facility] 01-04-2023 11:34-0500 Diastolic blood pressure 91 mm[Hg] [facility] Work Phone: [facility] 01-04-2023 11:34-0500 Heart rate 98 /min [facility] Work Phone: [facility] 01-04-2023 11:34-0500 Respiratory rate 18 /min [facility] Work Phone: [facility] 01-04-2023 11:34-0500 SaO2% (BldA) [Mass fraction] 100 % [facility] Work Phone: [facility] 01-04-2023 11:34-0500 Systolic blood pressure 165 mm[Hg] [facility] Work Phone: [facility] 11-17-2022 02:32-0500 Diastolic blood pressure 98 mm[Hg] [facility] Work Phone: [facility] 11-17-2022 02:32-0500 Heart rate 92 /min [facility] Work Phone: [facility] 11-17-2022 02:32-0500 Respiratory rate 18 /min [facility] Work Phone: [facility] 11-17-2022 02:32-0500 SaO2% (BldA) [Mass fraction] 98 % [facility] Work Phone: [facility] 11-17-2022 02:32-0500 Systolic blood pressure 168 mm[Hg] [facility] Work Phone: [facility] 11-16-2022 23:12-0500 Body height 176.53 cm [facility] Work Phone: [facility] 11-16-2022 23:12-0500 Body weight 126.35 kg [facility] Work Phone: [facility] 11-16-2022 23:11-0500 Body temperature 98.1 [degF] [facility] Work Phone: [facility] 09-17-2022 23:07-0400 Body height 175.26 cm [facility] Work Phone: [facility] 09-17-2022 23:07-0400 Body temperature 98.2 [degF] [facility] Work Phone: [facility] 09-17-2022 23:07-0400 Body weight 124.25 kg Services [employer] Work Phone: [facility] 09-17-2022 23:07-0400 Diastolic blood pressure 70 mm[Hg] Services [employer] Work Phone: [facility] 09-17-2022 23:07-0400 Heart rate 75 /min Services [employer] Work Phone: [facility] 09-17-2022 23:07-0400 Respiratory rate 18 /min Services [facility] Work Phone: [facility] 09-17-2022 23:07-0400 SaO2% (BldA) [Mass fraction] 94 % Services [facility] [employer] Work Phone: [facility] 09-17-2022 23:07-0400 Systolic blood pressure 153 mm[Hg] Services [facility] [employer] Work Phone: [facility] 08-23-2022 07:17-0400 Body height 175.26 cm DO Clyde Visci Work Phone: [facility] 08-23-2022 07:17-0400 Body temperature 98.2 [degF] DO Clyde Visci Work Phone: [facility] 08-23-2022 07:17-0400 Body weight 110.22 kg DO Clyde Visci Work Phone: [facility] 08-23-2022 07:17-0400 Diastolic blood pressure 75 mm[Hg] DO Clyde Visci Work Phone: [facility] 08-23-2022 07:17-0400 Heart rate 83 /min DO Clyde Visci Work Phone: [facility] 08-23-2022 07:17-0400 Respiratory rate 18 /min DO Clyde Visci Work Phone: [facility] 08-23-2022 07:17-0400 SaO2% (BldA) [Mass fraction] 100 % DO Clyde Visci Work Phone: [facility] 08-23-2022 07:17-0400 Systolic blood pressure 145 mm[Hg] DO Clyde Visci Work Phone: [facility] 07-13-2022 12:00-0400 Body height 175.26 cm Gabriel Olexa Other [facility] [employer] Other 07-13-2022 12:00-0400 Body mass index (BMI) [Ratio] 39.13 kg/m2 Gabriel Olexa Other [facility] [employer] Other 07-13-2022 12:00-0400 Body weight 120.2 kg Gabriel Olexa Other [facility] [employer] Other 07-06-2022 21:44-0400 Body height 176.53 cm DO Clyde Visci Work Phone: [facility] 07-06-2022 21:44-0400 Body weight 112.49 kg DO Clyde Visci Work Phone: [facility] 07-06-2022 21:43-0400 Body temperature 98.2 [degF] DO Clyde Visci Work Phone: [facility] 07-06-2022 21:43-0400 Diastolic blood pressure 72 mm[Hg] DO Clyde Visci Work Phone: [facility] 07-06-2022 21:43-0400 Heart rate 93 /min DO Clyde Visci Work Phone: [facility] 07-06-2022 21:43-0400 Respiratory rate 17 /min DO Clyde Visci Work Phone: [facility] 07-06-2022 21:43-0400 SaO2% (BldA) [Mass fraction] 100 % DO Clyde Visci Work Phone: [facility] 07-06-2022 21:43-0400 Systolic blood pressure 135 mm[Hg] DO Clyde Aguilera Work Phone: [facility] 2019 13:18-0500 BMI (Body Mass Index) 40.2 kg/m2 Clyde [facility] 2019 13:18-0500 Body Temperature 98.2 [degF] [facility] 13:18-0500 Body weight 127.3 kg Clyde [facility] 2019 13:18-0500 BP Diastolic 81 mm[Hg] Clyde [facility] 2019 13:18-0500 BP Systolic 143 mm[Hg] Clyde [facility] 2019 13:18-0500 Height 177.8 cm [facility] 2019 13:18-0500 Pulse (Heart Rate) 88 /min Clyde [facility] 2019 13:18-0500 Pulse Oximetry 99 % [facility] 2019 13:18-0500 Respiratory Rate 17 /min Clyde [facility] Encounters Encounter Date Encounter Type Care Provider Facility Start: 02-06-2024 End: 02-07-2024 ambulatory Alfie Dixon MD Facility:[facility] Start: 12-02-2023 End: 12-02-2023 ambulatory Services [facility] Facility:[facility] Start: 12-02-2023 End: 12-02-2023 ambulatory [facility] Work Phone: [facility] Work Phone: Start: 12-02-2023 End: 12-02-2023 Patient encounter procedure [facility] Work Phone: [facility] Work Phone: Start: 10-07-2023 End: 10-07-2023 ambulatory Services [facility] Facility:[facility] Start: 10-07-2023 End: 10-07-2023 ambulatory Services [facility] Work Phone: [facility] Work Phone: Start: 10-07-2023 End: 10-07-2023 Patient encounter procedure [facility] Work Phone: [facility] [place] Work Phone: Start: 08-09-2023 End: 08-09-2023 ambulatory Services [facility] Facility:[facility] Start: 08-09-2023 End: 08-09-2023 ambulatory [facility] Work Phone: [facility] Work Phone: Start: 08-09-2023 End: 08-09-2023 Patient encounter procedure [facility] Work Phone: [facility] Work Phone: Start: 07-13-2023 End: 07-13-2023 ambulatory Services [facility] Facility:[facility] Start: 07-13-2023 End: 07-13-2023 ambulatory [facility] Work Phone: [facility] Work Phone: Start: 07-13-2023 End: 07-13-2023 Patient encounter procedure [facility] Work Phone: [facility] [place] Work Phone: Start: 07-01-2023 End: 07-01-2023 Emergency department patient visit Services [facility] Facility:[facility] Start: 07-01-2023 End: 07-01-2023 Emergency department patient visit Services [facility] Work Phone: [facility] Work Phone: Start: 06-18-2023 End: 06-19-2023 Emergency department patient visit Services [facility] Start: 06-18-2023 End: 06-19-2023 Emergency department patient visit [facility] Work Phone: [facility] Work Phone: Start: 06-14-2023 Office outpatient visit 15 minutes [facility] Start: 06-14-2023 End: 06-14-2023 ambulatory Services [facility] [employer] Other Start: 06-14-2023 End: 06-14-2023 Patient encounter procedure Services [facility] Work Phone: [facility] Start: 06-03-[address] Marcos Gregory Facility:[id number] Start: 05-31-2023 End: 05-31-2023 Emergency department patient visit Leonel Guerra Facility:[facility] Start: 05-30-2023 End: 05-31-2023 Emergency department patient visit Services [facility] Work Phone: [facility] Work Phone: Start: 05-12-2023 ambulatory ANGEL SWAIN . Facility:[facility] Start: 04-18-2023 End: 04-18-2023 Emergency department patient visit Agustin Sandra Facility:[facility] Start: 04-18-2023 End: 04-18-2023 Emergency department patient visit Services [facility] Work Phone: [facility] Work Phone: Start: 02-10-2023 End: 02-11-[address] UZAIR LIGHT . Facility:[facility] Start: 01-19-2023 End: 01-19-2023 Emergency department patient visit Services [facility] Facility:[facility] Start: 01-19-2023 End: 01-19-2023 Emergency department patient visit Services [facility] Work Phone: [facility] Work Phone: Start: 01-08-2023 End: 01-08-2023 Emergency department patient visit Services [facility] Facility:[facility] Start: 01-08-2023 End: 01-08-2023 Emergency department patient visit Services [facility] Work Phone: [facility] Work Phone: Start: 01-04-2023 End: 01-04-2023 Emergency department patient visit Services [facility] Facility:[facility] Start: 01-04-2023 End: 01-04-2023 Emergency department patient visit Services [facility] Work Phone: [facility] Work Phone: Start: 11-16-2022 End: 11-17-2022 Emergency department patient visit Services [facility] Work Phone: [facility] Start: 11-04-2022 End: 11-05-[address] UZAIR LIGHT . Facility:[facility] Start: 10-12-2022 End: 10-12-2022 Patient encounter procedure Services [facility] Work Phone: [facility] Start: 09-17-2022 End: 09-18-2022 Emergency department patient visit Services [facility] Work Phone: [facility]-Emergency Room Start: 08-23-2022 End: 08-23-2022 Emergency department patient visit DO Clyde Visci Work Phone: [facility]-Emergency Room Start: 08-18-2022 End: 08-18-2022 Patient encounter procedure DO Clyde Visci Work Phone: [facility]-MRI [address] Start: 07-13-2022 End: 07-13-2022 ambulatory Gabriel Rosenberg Other [employer] Other Start: 07-13-2022 Office outpatient ne w 45 minutes Gabriel Rosenberg [facility] Start: 07-08-2022 End: 07-09-[address] UZAIR LIGHT . Facility:[facility] Start: 07-06-2022 End: 07-06-2022 Emergency department patient visit DO Clyde Visci Work Phone: [facility]-Emergency Room Start: 04-15-2022 End: 04-16-[address] UZAIR LIGHT . Facility:[facility] Start: 03-30-2022 End: 03-30-[address] UZAIR LIGHT . Facility:[facility] Start: 01-08-2020 End: 01-08-2020 Patient encounter procedure Clyde Aguilera -Ultrasound [facility] [place] Start: 2019 End: 2019 Emergency department patient visit Clyde Yehi -Emergency Room Start: 09-17-2019 End: 09-17-2019 Emergency department patient visit Clyde Yehi -Emergency Room Start: 12-26-2018 End: 12-26-2018 Patient encounter procedure Clyde Yehi -XRay [address] Start: 02-02-2005 Evaluation and management of inpatient Clyde Yehi -3 [facility] Post Procedures Date Procedure Procedure Detail Performing Clinician Start: 12-02-2023 Screening mammograph y of bilateral breasts [facility] [employer] Phone: Start: 06-18-2023 CT of head without contrast [facility] [employer] Phone: Start: 06-18-2023 Plain X-ray of left shoulder [facility] [employer] Phone: Start: 06-14-2023 Plain X-ray of left wrist [facility] [employer] Phone: Start: 06-03-2023 Radionuclide myocard ial perfusion stress study [facility] [employer] Phone: Start: 05-31-2023 Plain chest X-ray Servi rachel [employer] Phone: Start: 04-18-2023 Plain X-ray of left wrist [facility] [employer] Phone: Start: 01-19-2023 Streptococcus pyogen es antigen assay [facility] [employer] Phone: Start: 01-08-2023 SARS-CoV-2, Influenz a & RSV (PCR) [facility] [employer] Phone: Start: 01-04-2023 Streptococcus pyogen es antigen assay [facility] [employer] Phone: Start: 11-17-2022 SARS-CoV-2, Influenz a & RSV (PCR) [facility] [employer] Phone: Start: 10-12-2022 X-ray of left ankle Ser vices [employer] Phone: Start: 08-18-2022 MRI of right knee DO Estrella mayo Visci Work Phone: Start: 07-06-2022 Plain X-ray of left wrist DO Clyde Visci Work Phone: Start: 07-06-2022 X-ray of right knee DO Clyde Visci Work Phone: Start: 01-08-2020 Duplex scan of lower limb veins Clyde Yehi Start: 2019 X-ray of left ankle Giovanni hard [facility] H/O: section S/P DO Ri gael Visci Work Phone: SARS Antigen (LFIA) DO Karen rd Visci Work Phone: SARS-CoV-2, Influenz a & RSV (PCR) Services [employer] [facility] Work Phone: Plan of Treatment Date Care Activity Detail Author Start: 06-18-2023 CT of head without contrast CT head/ brain wo con [facility] Start: 06-18-2023 CT Unspecified body region WO contrast [facility] Start: 06-18-2023 Plain X-ray of left shoulder XR shoulder LT min 2V* [facility] Start: 06-18-2023 XR Shoulder - left Views [facility] Start: 05-31-2023 [facility] Start: 05-31-2023 Plain chest X-ray XR chest 2V* [facility] Start: 05-31-2023 XR Chest 2 Views [facility] Cardiovascular stres s testing [facility] Patient Education [facility] Patient referral [facility] Immunizations Immunization Date Immunization Notes Care Provider Fa shakiraty 12-10-2018 tetanus toxoid, redu nissa diphtheria toxoid, and acellular pertussis vaccine, adsorbed Clyde Yehi [facility] Payers Date Payer Category Payer Medicare 2023 Self-pay [id number] 2022 Medicaid [id number] 1978 Unknown [id number] [id number] 93 1978 Unknown [id number] 2.16.840.1.731791.3.579.2.5 93 1978 Unknown [id number] 2.16.840.1.531880.3.579.2.5 93 1978 Unknown [id number] 2.16.840.1.005757.3.579.2.5 93 1978 Unknown [id number] 2.16.840.1.269394.3.579.2.5 93 1978 Unknown [id number] 2.16.840.1.561864.3.579.2.5 93 1978 Unknown [id number] 2.16840.1.343775.3.579.2.3 56 1978 Unknown [id number] 2.16.840.1.049961.3.579.2.1 96 1959 Medicare [id number] 1959 Unknown [id number] .[id number] Private Health Insurance [id number] Unknown Self Pay [id number] Unknown Regular Auto/Liability [id number] Unknown [id number] 2.16840.1.941122.3.579.2.5 31 Unknown [id number] 2.16840.1.473469.3.579.2.5 31 Unknown [id number] 2.16840.1.502937.3.579.2.5 31 Unknown [id number] 2.16.840.1.147368.3.579.2.5 31 Unknown [id number] 2.16.840.1.471723.3.579.2.5 31 Unknown [id number] 2.16.840.1.625810.3.579.2.5 31 Unknown [id number] 2.16.840.1.535161.3.579.2.5 31 Unknown [id number] 2.16.840.1.929250.3.579.2.5 31 Unknown [id number] 2.16.840.1.695754.3.579.2.5 31 Unknown [id number] 2.16.840.1.723490.3.579.2.5 31 Unknown [id number] 2.16.840.1.210901.3.579.2.5 31 Unknown [id number] 2.16.840.1.432543.3.579.2.5 31 Social History Date Type Detail Facility Start: 2019 End: 01-19-2023 Tobacco smoking status [facility] Ex-smoker (finding) [facility] Start: 1980 Sex Assigned At Female F [facility] Sex Assigned At Sex Assigned At [facility] [employer] Other Start: 07-06-2022 End: 07-01-2023 Tobacco smoking status [facility] Never smoked tobacco (finding) [facility] Goals Date Patient Goal Desired Activity [...] We also discussed a carpal tunnel release. [employer] Other 03-16-2023 NoteCONSULTATION CONSULTATION DATE: 02/10/2023 HISTORY: [...] in three months' time, unless otherwise indicated.[id number] Hospital Discharge instructions Additional Instructions Take the [...] fever difficulty breathing vomiting or any other [facility] Work Phone: [phone]) 878-612712-08-2022 NoteCONSULTATION CONSULTATION DATE: 11/04/2022 HISTORY OF PRESENT [...] 20-30 a week. Patient does work at [employer] and is on her foot a lot. [...] Patient agrees with the plan of care.[facility] [id number] Evaluation note* Encounter Date Diagnosis Assessment Notes [...] tolerated the injection well without adverse reaction. [employer] Other 08-11-2022 NoteCONSULTATION CONSULTATION DATE: 07/08/2022 HISTORY [...] pending appointment with Dr. Rosenberg, Orthopedic in [place] next week. 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 She is on her feet a lot and has recently experienced left lower extremity swelling. Overall, the patient felt that's some pressure has been released with this recent sympathetic block. Current medications include gabapentin 200 mg a.m., 200 mg noon and 400 mg at dusk, Percocet 5/325 t.i.d., Vistaril and a vitamin complex. The patient does continue to go to physical therapy at [facility] in [place]. Activities that aggravate her pain are standing, [...] of care and would like to proceed. [facility] Signed and Approved by: NICO GARCIAS . 04/19/2022 15:06:00[facility] noteNo assessment information available[facility] Work Phone: History general Narrative - Reported* Type Description Date Medical History Rheumatoid arthritis Medical History carpal tunnel Medical History diabetes Medical History HTN Surgical History Bilateral feet surgery-heel spu rs Surgical History x 2 Surgical History gall bladder Surgical History tendon repair, nerve repair lef t lower extremity 2019 Surgical History left carpal tunnel release 2020 Hospitalization History see surgeries [employer] Other Hospital Discharge instructions Additional Instructions Tylenol every 4 hours as needed for pain Return if symptoms are worse Watch for signs of infection Follow-up with your nailbed salon and get the false nail removed tomorrow [facility] Work Phone: Hospital Discharge instructions Additional Instructions Follow-up with your primary care doctor Return to ED if develop worsening symptoms or concernMer[facility] Work Phone: Hospital Discharge instructions Additional Instructions I am not able to prescribe you any pain medication as you have a current prescription for Percocet.[facility] Work Phone: Advance Directives No Advanced Directives Records Found Advance Directive Response Recorded Date/ Time Advance [...] Assessments No Assessments Information Available Family History No Family History Records Found Relationship Condition Age at Onset Recorded Date/T mendez Not Specified Myocardial infarction Unknown Diabetes mellitus Unknown father Cerebrovascular accident (CVA) Unknown Hypertension Unknown brother Diabetes mellitus Unknown Renal failure Unknown Summary Purpose Additional Source Comments REASON FOR VISIT (unrecogniz ed section and content) [facility] LT WRIST CYST RT KNE E PAIN WXLeft Wrist Pain, Right Carpal Tunnel SyndromeLeft Wrist Pain, Right Carpal Tunnel Syndrome Care Teams (unrecognized sec tion and content) Team Status: Active Member Role Status Dates Services [facility] Primary Care Provider Active Team Status: Active Member Role Status Dates Clyde Aguilera DO Attending Provider Active Team Status: Inactive Member Role Status Dates Services [facility] Primary Care Provider Active Agustin Sandra APRN Emergency Provider Active Team Status: Inactive Member Role Status Dates [facility] Primary Care Provider Active Leonel Guerra DO Emergency Provider Active Team Status: Inactive Member Role Status Dates Services [facility] Primary Care Provider Active Marissa Elliott APRN Emergency Provider Active Team Status: Inactive Member Role Status Dates [facility] Primary Care Provider Active Praveen Pearl DO Emergency Provider Active Team Status: Inactive Member Role Status Dates Services Family Health Primary Care Provider Active Gabriel Rosenberg MD [...] Services Family Health Primary Care Provider Active Abner Garica DPM MS Attending Provider Active Team Status: Inactive Member Role Status Dates Services Family Health Primary Care Provider Active Caitlyn Cooper , [facility]- Emergency Provider Active Team Status: Inactive Member Role Status Dates Services Family Health Primary Care Provider Active Arnoldo Préez DO Emergency Provider Active Team Status: Inactive Member Role Status Dates Services Family Health Primary Care Provider Active Gabriel Breaux Jr, MD Emergency Provider Active Princess Guevara MD RES Active Team Status: Inactive Member Role Status Dates Services Family Health Primary Care Provider Active Teo Heath DO Attending Provider Active Marquise Disla DO RES Other Provider Active Team Status: Inactive Member Role Status Dates Services Family Health Primary Care Provider Active Teo Heath DO Attending Provider Active John Luu DO RES Referring Provider Active Team Status: Inactive Member Role Status Dates Services Family Health Primary Care Provider Active Referral Self Attending Provider Active Goals (unrecognized section and content) Goals may be documented in a n alternate section INFORMATION SOURCE (unrecogn ized section and content) DATE CREATED AUTHOR 02/19/2023 [facility] DATE CREATED AUTHOR AUTHOR'S ORGANIZ ATION 06/04/2023 [facility] DATE CREATED AUTHOR AUTHOR'S ORGANIZ ATION 12/05/2023 [facility] DATE CREATED AUTHOR AUTHOR'S ORGANIZ ATION 02/08/2024 [facility] FOR RECORDS PERTAINING TO PATIENTS WHO [...] BE BASED ON THE PRIMARY CLINICAL RECORDS. [employer] [facility]. provides no warranty or guarantee of the accuracy or completeness of information in this document.
[2024-02-27 07:15] LABS: HCG Qualitative NEGATIVE (NEGATIVE)
[2024-02-27 07:16] VITALS: BP 143/86; PULSE 88; TEMP 36.2; O2SAT 99
[2024-02-27 07:20] LABS: Glucometer 98 mg/dL (74-106)
[2024-02-27] MEDS: 0.9 % SODIUM CHLORIDE 500 ML IV (07:24)
--- NOTE | 2024-02-27 08:02 | W.PM.PROCNOT ---
Date of procedure: 02/27/24 Pre-op diagnosis: CRPS, LLE, type I Post-op diagnosis: same as pre-op Procedure: Procedure: Left lumbar sympathetic nerve block Medications: Bupivacaine 0.25% 4cc, normal saline 0.9% 4cc, kenalog 80mg The patient was seen and examined in the preoperative holding area.? Informed consent was obtained and placed on the chart.? Patient was brought to the medical procedure unit and placed in the prone position where a timeout was completed verifying the correct patient, procedure site, position, and planned special equipment using sterile aseptic technique.? Under direct fluoroscopic visualization a 25-gauge Quincke tipped spinal needle was advanced to the left anterolateral aspect of the L3 vertebral body where Omnipaque dye was injected to show adequate spread.? There was no evidence of vascular or neurologic uptake.? The above-mentioned injectate was then placed in five 2 mL aliquots preceded by negative aspiration. The needle was removed and the surgery site was covered. The same procedure, with the same steps, was then completed on the opposite side. Patient was taken to the postprocedural recovery area and monitored for an appropriate length of time before found suitable for discharge in the accompaniment of a responsible adult. Anesthesia: MAC Surgeon: Alfie Dixon Pathology: none sent Condition: stable Disposition: no change
[2024-02-27] MEDS: IOHEXOL 240 MG/ML - 10 ML VIAL 36 MG INJ (08:04)
[2024-02-27] MEDS: BUPIVACAINE HCL 0.25% PF 25 MG/10 ML VIAL 4 ML INJ (08:04)
[2024-02-27 08:05] VITALS: BP 135/83; PULSE 104; TEMP 36.7; O2SAT 99
[2024-02-27] MEDS: LIDOCAINE HCL 2% PF 100 MG/5 ML VIAL 1 ML INJ (08:05)
[2024-02-27] MEDS: TRIAMCINOLONE ACETONIDE 40 MG/ML VIAL INJ (08:05)
[2024-02-27] MEDS: 0.9 % SODIUM CHLORIDE 10 ML SYRINGE - SALINE FLUSH 5 ML INJ (08:06)
[2024-02-27 08:23] VITALS: BP 137/89; PULSE 104; TEMP 36.7; O2SAT 98
== END 2024-02-27 08:28 | disposition home or self-care (01) ==
LOC: SURGOUT 06:43
PROVIDERS: Visit Provider Anesthesiology
PROC: (CPT 1992; principal; 2024-02-27 07:50)
DX: G90.522 Complex regional pain syndrome I of left lower limb (principal); E11.9 Type 2 diabetes mellitus without complications; I10 Essential (primary) hypertension; E66.01 Morbid (severe) obesity due to excess calories; Z68.41 Body mass index [BMI] 40.0-44.9, adult
CPT/HCPCS: 36415; 64520; 82948; 84703; J2704; Q9966

== ENCOUNTER 2024-03-12 08:18 | Day surgery (SDC) | payer MEDICARE, MEDICAID, SELFPAY ==
--- OUTSIDE RECORDS SUMMARY | 2024-03-12 08:41 | XMS_ITS | CCD ---
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 shoulder] Onset: 06-18-2023 Episodic Sprains and strains (20 sources) Sprain of knee; Translations: [Sprain of ankle] Onset: 06-18-2023 05-30-2019 Episodic Syncope (8 sources) Syncope; Translations: [Syncope and collapse] Onset: 06-18-2023 06-19-2023 Episodic Unclassified (1 source) LOW BACK PAIN, UNSPECIFIED; Translations: [LOW BACK PAIN, UNSPECIFIED] Onset: 02-10-2023 Results Test Name Value Interpretation Reference Range Facility US breast BI limited 03-08 US breast BI limited [facility] [place] [address] Ultrasound Report Signed Patient: Loy Tam MR#: [id number] : 1980 Acct:[id number] Age/Sex: 43 / F ADM Date: 03/08/24 Loc: [facility] Room: Type: [facility] Attending Dr: John Luu DO, Resident Ordering Provider: John Luu DO, RES Date of Service: 03/08/24 US/US breast BI limited: Abnormal mammogram Copies to: John Luu DO, RES US breast BI limited 03/08/2024 2:36 PM SIGNS AND SYMPTOMS: Abnormal mammogram COMPARISON: 12/02/2023 FINDINGS: Grayscale and color sonographic images were obtained of the bilateral breasts. Within the right breast there is no evidence of mass, cyst, architectural distortion, or focal asymmetry. Within the left breast at the 8:00 position 6 cm from nipple there is a mildly lobulated but otherwise anechoic cyst measuring 0.7 x 0.4 x 0.4 cm. US/US breast BI limited IMPRESSION: No lesion is noted on the right sonographically. There is a mildly complex cyst on the left corresponding to mammographic abnormality. ASSESSMENT: BIRADS-3 Probably Benign RECOMMENDATION: Six-month follow-up ultrasound of the left breast is recommended with six-month follow-up of the right breast using spot compressed mammographic views. Impression dictated by: Alan Matta M.D.03/08/2024 3:19 PM Dictation Location: [facility] Tech: Dana Reggie Transcribed By: ILIA 03/08/24 1519 Dictated By: Alan Matta II, MD 03/08/24 151 Signed By: 03/08/24 1519 Normal [facility] MM screening mammo BI w/CADo n 12-02-2023 MM screening mammo BI w/CAD [facility] [place] [address] Mammography Report Signed Patient: Loy Tam MR#: [id number] : 1980 Acct:[id number] Age/Sex: 42 / F ADM Date: 12/02/23 Loc: CT Room: Type: [facility] Attending Dr: Referral Self Copies to: [facility] SELF,REFERRAL Ordering Provider: SELF,REFERRAL Date of [...] Sarah Mistry M.D.12/02/2023 3:31 PM Dictation Location: [facility] Transcribed By: ILIA 12/02/23 1531 Dictated By: Sarah Mistry MD 12/02/23 1523 Signed By: 12/02/23 1531 Normal [facility] FE PROon 10-07-2023 % Iron Saturation 12.3 % Low 20-50 [facility] Comment on above: Performed By: #### F E PRO, TSH3 #### [address] Ferritin [Mass/Vol] 23.1 ng/mL Normal 11.0-306.8 [facility] Comment on above: Performed By: #### F E PRO, TSH3 #### [facility] [address] [id number] [place] Iron [Mass/Vol] 48 ug/dL Low 50-212 [facility] Comment on above: Performed By: #### F E PRO, TSH3 #### [facility] [address] [place] [address] [place] Total Iron Binding Capacity 389 ug/dL Normal 255-450 [facility] Comment on above: Performed By: #### F E PRO, TSH3 #### [facility] [address] [id number] [facility] Transferrin [Mass/Vol] 278 mg/dL Normal 203-362 [facility] Comment on above: Performed By: #### F E PRO, TSH3 #### [facility] [address] [id number] [facility] Ferritin [Mass/volume] in Se rum or PlasmaOrdered By: Teo Heath on 10-07-2023 Ferritin [Mass/Vol] 23.1 ng/mL 11.0-306.8 [facility] Iron [Mass/volume] in Serum or PlasmaOrdered By: Teo Heath on 10-07-2023 Iron [Mass/Vol] 48 ug/dL 50-212 [facility] Iron binding capacity [Mass/ volume] in Serum or PlasmaOrdered By: Teo Heath on 10-07-2023 Iron binding capacity [Mass/Vol] 389 ug/dL 255-450 [facility] Iron saturation [Mass Fracti on] in Serum or PlasmaOrdered By: Teo Heath on 10-07-2023 Iron saturation [Mass fraction] 12.3 % 20-50 [facility] Thyroid Stimulating Hormoneo n 10-07-2023 TSH Qn 0.91 m[IU]/L Normal 0.45-5.33 [facility] Comment on above: Result Comment: PERF ORMED BY: [facility] [address] [place] [address] PATHOLOGIST [employer] MARTY SALGADO M.D. Performed By: #### F E PRO, TSH3 ####[facility] [id number] Thyrotropin [Units/volume] i n Serum or PlasmaOrdered By: Teo Heath on 10-07-2023 TSH Qn 0.91 m[IU]/L 0.45-5.33 [facility] Transferrin [Mass/volume] in Serum or PlasmaOrdered By: Teo Heath on 10-07-2023 Transferrin [Mass/Vol] 278 mg/dL 203-362 [facility] Alanine aminotransferase [En zymatic activity/volume] in Serum or PlasmaOrdered By: Marquise Disla on 07-13-2023 ALT [Catalytic activity/Vol] 25 U/L 7-52 [facility] Albumin [Mass/volume] in Ser um or Plasma by Bromocresol green (BCG) dye binding methoOrdered By: Marquise Disla on 07-13-2023 Albumin BCG dye [Mass/Vol] 4.2 g/dL 3.5-5.7 [facility] Alkaline phosphatase [Enzyma tic activity/volume] in Serum or PlasmaOrdered By: Marquise Disla on 07-13-2023 ALP [Catalytic activity/Vol] 113 U/L 34-104 [facility] Aspartate aminotransferase [ Enzymatic activity/volume] in Serum or PlasmaOrdered By: Marquise Disla on 07-13-2023 AST [Catalytic activity/Vol] 13 U/L 13-39 [facility] Basophils Auto (Bld) [#/Vol] Ordered By: Marquise Disla on 07-13-2023 Basophils (Bld) [#/Vol] 0.1 10*3/uL 0.0-0.2 [facility] Basophils/100 WBC Auto (Bld) Ordered By: Marquise Disla on 07-13-2023 Basophils/100 WBC (Bld) 1.2 % . F [facility] Bilirubin.total [Mass/volume ] in Serum or PlasmaOrdered By: Marquise Disla on 07-13-2023 Bilirubin [Mass/Vol] 0.6 mg/dL 0.3-1.0 [facility] Calcium [Mass/volume] in Ser um or PlasmaOrdered By: Marquise Disla on 07-13-2023 Calcium [Mass/Vol] 9.6 mg/dL 8.6-10.3 [facility] Carbon dioxide, total [Moles /volume] in Serum or PlasmaOrdered By: Marquise Disla on 07-13-2023 CO2 [Moles/Vol] 27.9 mmol/L 21.0-31.0 [facility] Chloride [Moles/volume] in S brian or PlasmaOrdered By: Marquise Disla on 07-13-2023 Chloride [Moles/Vol] 106 mmol/L 98-107 [facility] Cholesterol [Mass/volume] in Serum or PlasmaOrdered By: Marquise Disla on 07-13-2023 Cholesterol [Mass/Vol] 208 mg/dL 140-200 [facility] Comment on above: Chol less than 200 m g/dl low riskChol 201-239 mg/dl borderline riskChol 240 mg/dl and greater high risk Cholesterol in LDL Calc [Mas s/Vol]Ordered By: Marquise Disla on 07-13-2023 Cholesterol in LDL [Mass/Vol] 150 mg/dL 0-100 [facility] Comment on above: LDL ATP III CLASSIFI CATIONLDL less than 100 mg/dL OptimalLDL 100-129 mg/dL Near or above optimalLDL 130-159 mg/dL Borderline highLDL 160-189 mg/dL HighLDL greater than 189 mg/dL Very high Cholesterol in LDL [Mass/vol ume] in Serum or PlasmaOrdered By: Marquise Disla on 07-13-2023 Cholesterol in LDL [Mass/Vol] 171 mg/dL 0-100 [facility] Comment on above: LDL ATP III CLASSIFI CATIONLDL less than 100 mg/dL OptimalLDL 100-129 mg/dL Near or above optimalLDL 130-159 mg/dL Borderline highLDL 160-189 mg/dL HighLDL greater than 189 mg/dL Very high Cholesterol in VLDL Calc [Ma ss/Vol]Ordered By: Marquise Disla on 07-13-2023 Cholesterol in VLDL [Mass/Vol] 17 mg/dL [facility] Complete Blood Count Auto Di ffon 07-13-2023 Basophils (Bld) [#/Vol] 0.1 10*3/uL Normal 0.0-0.2 [facility] Comment on above: Result Comment: PERF ORMED BY: [facility] [address] [facility] [place] [address] PATHOLOGIST [employer] MARTY SALGADO M.D. Performed By: #### B 12, LIPID, CMP, CBC, LDLD ####[facility] Basophils/100 WBC (Bld) 1.2 % Normal . [facility] Comment on above: Performed By: #### B 12, LIPID, CMP, CBC, LDLD ####[facility] Eosinophils (Bld) [#/Vol] 0.3 10*3/uL Normal 0.0-0.45 [facility] Comment on above: Performed By: #### B 12, LIPID, CMP, CBC, LDLD ####[address] Eosinophils/100 WBC (Bld) 3.3 % Normal . [facility] Comment on above: Performed By: #### B 12, LIPID, CMP, CBC, LDLD ####[address] Erythrocyte distribution width (RBC) [Ratio] 16.1 % High 11.9-15.3 [facility] Comment on above: Performed By: #### B 12, LIPID, CMP, CBC, LDLD ####[address] Hematocrit (Bld) [Volume fraction] 39.7 % Normal 34.0-46.4 [facility] Comment on above: Performed By: #### B 12, LIPID, CMP, CBC, LDLD ####[address] Hemoglobin (Bld) [Mass/Vol] 12.8 g/dL Normal 11.8-15.4 [facility] Comment on above: Performed By: #### B 12, LIPID, CMP, CBC, LDLD ####[address] Lymphocytes (Bld) [#/Vol] 3.2 10*3/uL Normal 1.00-4.8 [facility] Comment on above: Performed By: #### B 12, LIPID, CMP, CBC, LDLD ####[address] Lymphocytes/100 WBC (Bld) 31.0 % Normal . [facility] Comment on above: Performed By: #### B 12, LIPID, CMP, CBC, LDLD ####[address] MCH (RBC) [Entitic mass] 23.1 pg Low 24.7-34.3 [facility] Comment on above: Performed By: #### B 12, LIPID, CMP, CBC, LDLD ####[address] MCV (RBC) [Entitic vol] 71.6 fL Low 80-100 T [facility] Comment on above: Performed By: #### B 12, LIPID, CMP, CBC, LDLD ####[address] Mean Corpuscular HGB Conc 32.2 g/dL Normal 32.0-35.0 [facility] Comment on above: Performed By: #### B 12, LIPID, CMP, CBC, LDLD ####[address] Monocytes (Bld) [#/Vol] 0.7 10*3/uL Normal 0.0-0.8 [facility] Comment on above: Performed By: #### B 12, LIPID, CMP, CBC, LDLD ####[address] Monocytes/100 WBC (Bld) 6.5 % Normal . T [facility] Comment on above: Performed By: #### B 12, LIPID, CMP, CBC, LDLD ####[address] Neutrophils (Bld) [#/Vol] 6.0 10*3/uL Normal 1.8-7.7 [facility] Comment on above: Performed By: #### B 12, LIPID, CMP, CBC, LDLD ####[address] Neutrophils/100 WBC (Bld) 58.0 % Normal . [facility] Comment on above: Performed By: #### B 12, LIPID, CMP, CBC, LDLD ####[address] NRBC% 0.2 /100{WBC} Normal 0-0.5 [facility] Comment on above: Performed By: #### B 12, LIPID, CMP, CBC, LDLD ####[address] Platelet mean volume (Bld) [Entitic vol] 7.2 fL Normal 6.3-10.7 [facility] Comment on above: Performed By: #### B 12, LIPID, CMP, CBC, LDLD ####[address] Platelets (Bld) [#/Vol] 394 10*3/uL Normal 150-450 [facility] Comment on above: Performed By: #### B 12, LIPID, CMP, CBC, LDLD ####[address] RBC (Bld) [#/Vol] 5.55 10*6/uL High 3.60-5.00 [facility] Comment on above: Performed By: #### B 12, LIPID, CMP, CBC, LDLD ####[address] WBC (Bld) [#/Vol] 10.3 10*3/uL Normal 3.8-11.6 [facility] Comment on above: Performed By: #### B 12, LIPID, CMP, CBC, LDLD ####[address] Comprehensive Metabolic Pane susan 07-13-2023 Albumin [Mass/Vol] 4.2 g/dL Normal 3.5-5.7 [facility] Comment on above: Performed By: #### B 12, LIPID, CMP, CBC, LDLD ####[address] Albumin/Globulin [Mass ratio] 1.2 {ratio} Normal [facility] Comment on above: Performed By: #### B 12, LIPID, CMP, CBC, LDLD ####[address] ALP [Catalytic activity/Vol] 113 U/L High 34-104 [facility] Comment on above: Performed By: #### B 12, LIPID, CMP, CBC, LDLD ####[address] ALT [Catalytic activity/Vol] 25 U/L Normal 7-52 [facility] Comment on above: Performed By: #### B 12, LIPID, CMP, CBC, LDLD ####[address] Anion gap [Moles/Vol] 11.4 mmol/L Normal 6.0-15.0 [facility] Comment on above: Performed By: #### B 12, LIPID, CMP, CBC, LDLD ####[address] AST [Catalytic activity/Vol] 13 U/L Normal 13-39 [facility] Comment on above: Performed By: #### B 12, LIPID, CMP, CBC, LDLD ####[address] Bilirubin [Mass/Vol] 0.6 mg/dL Normal 0.3-1.0 [facility] Comment on above: Performed By: #### B 12, LIPID, CMP, CBC, LDLD ####[address] Calcium [Mass/Vol] 9.6 mg/dL Normal 8.6-10.3 [facility] Comment on above: Performed By: #### B 12, LIPID, CMP, CBC, LDLD ####[address] Chloride [Moles/Vol] 106 mmol/L Normal 98-107 [facility] Comment on above: Performed By: #### B 12, LIPID, CMP, CBC, LDLD ####[address] CO2 [Moles/Vol] 27.9 mmol/L Normal 21.0-31.0 [facility] Comment on above: Performed By: #### B 12, LIPID, CMP, CBC, LDLD ####[address] Creatinine [Mass/Vol] 0.69 mg/dL Normal 0.60-1.20 [facility] Comment on above: Performed By: #### B 12, LIPID, CMP, CBC, LDLD ####[facility] [place] [id number] [facility] GFR/1.73 sq M.predicted MDRD (S/P/Bld) [Vol rate/Area] mL/min/{1.73_m2} Normal [facility] Comment on above: Performed By: #### B 12, LIPID, CMP, CBC, LDLD ####[address] [id number] [place] [id number] [facility] Globulin (S) [Mass/Vol] 3.4 g/dL Normal [facility] Comment on above: Performed By: #### B 12, LIPID, CMP, CBC, LDLD ####[place] [id number] [address] Glucose [Mass/Vol] 87 mg/dL Normal 70-100 [facility] Comment on above: Result Comment: [facility] Glucose Reference Range is dependent on time and content of last meal. Glucose of more than 200 mg/dL in a nonstressed, ambulatory subject supports the diagnosis of Diabetes Mellitus. ADA recommended reference range Performed By: #### B 12, LIPID, CMP, CBC, LDLD ####[place] [id number] [address] Potassium [Moles/Vol] 4.3 mmol/L Normal 3.5-5.1 [facility] Comment on above: Performed By: #### B 12, LIPID, CMP, CBC, LDLD ####[address] Protein [Mass/Vol] 7.6 g/dL Normal 6.4-8.9 [facility] Comment on above: Performed By: #### B 12, LIPID, CMP, CBC, LDLD ####[place] [id number] [facility] Sodium [Moles/Vol] 141 mmol/L Normal 136-145 [facility] Comment on above: Performed By: #### B 12, LIPID, CMP, CBC, LDLD ####[address] [place] [id number] [place] [id number] [facility] Urea nitrogen [Mass/Vol] 10 mg/dL Normal 7-25 [facility] Comment on above: Performed By: #### B 12, LIPID, CMP, CBC, LDLD ####[facility] [id number] [place] [id number] [facility] Creatinine [Mass/volume] in Serum or PlasmaOrdered By: Marquise Disla on 07-13-2023 Creatinine [Mass/Vol] 0.69 mg/dL 0.60-1.20 [facility] Eosinophils Auto (Bld) [#/Vo l]Ordered By: Marquise Disla on 07-13-2023 Eosinophils (Bld) [#/Vol] 0.3 10*3/uL 0.0-0.45 [facility] Eosinophils/100 WBC Auto (Bl d)Ordered By: Marquise Disla on 07-13-2023 Eosinophils/100 WBC (Bld) 3.3 % . [facility] Erythrocyte distribution wid th Auto (RBC) [Ratio]Ordered By: Marquise Disla on 07-13-2023 Erythrocyte distribution width (RBC) [Ratio] 16.1 % 11.9-15.3 [facility] Globulin Calc (S) [Mass/Vol] Ordered By: Marquise Disla on 07-13-2023 Globulin (S) [Mass/Vol] 3.4 g/dL [facility] Glucose [Mass/volume] in Ser um or PlasmaOrdered By: Marquise Disla on 07-13-2023 Glucose [Mass/Vol] 87 mg/dL 70-100 [facility] Comment on above: ADA recommended refe rence rangeRandom Glucose Reference Range is dependent on time and content of last meal. Glucose of more than 200 mg/dL in a nonstressed, ambulatory subject supports the diagnosis of Diabetes Mellitus. Hematocrit Auto (Bld) [Volum e fraction]Ordered By: Marquise Disla on 07-13-2023 Hematocrit (Bld) [Volume fraction] 39.7 % 34.0-46.4 [facility] Hemoglobin [Mass/volume] in BloodOrdered By: Marquise Disla on 07-13-2023 Hemoglobin (Bld) [Mass/Vol] 12.8 g/dL 11.8-15.4 [facility] LDL Cholesterol Measuredon 0 07-13-2023 LDL Cholesterol Measured 171 mg/dL High 0-100 [facility] Comment on above: Result Comment: LDL ATP III CLASSIFICATION LDL less than 100 mg/dL Optimal LDL 100-129 mg/dL Near or above optimal LDL 130-159 mg/dL Borderline high LDL 160-189 mg/dL High LDL greater than 189 mg/dL Very high Performed By: #### B 12, LIPID, CMP, CBC, LDLD ####[address] [id number] [place] [id number] [facility] Leukocytes [#/volume] correc abdias for nucleated erythrocytes in Blood by Automated counOrdered By: Marquise Disla on 07-13-2023 WBC corrected for nucl RBC Auto (Bld) [#/Vol] 10.3 10*3/uL 3.8-11.6 [facility] Lipid Panelon 07-13-2023 Cholesterol [Mass/Vol] 208 mg/dL High 140-200 [facility] Comment on above: Result Comment: Chol less than 200 mg/dl low risk Chol 201-239 mg/dl borderline risk Chol 240 mg/dl and greater high risk Performed By: #### B 12, LIPID, CMP, CBC, LDLD ####[place] [address] [address] Cholesterol in HDL [Mass/Vol] 40 mg/dL Normal 23-92 [facility] Comment on above: Result Comment: HDL CHOL ATP-III CLASSIFICATION Cardiovascular Risk HDL > or equal to 60 mg/dL LOW HDL < 40 mg/dL HIGH Performed By: #### B 12, LIPID, CMP, CBC, LDLD ####[place] [id number] [place] [id number] [facility] Cholesterol.total/Acndy sterol in HDL [Mass ratio] 5.2 {ratio} Normal <5.0 [facility] Comment on above: Performed By: #### B 12, LIPID, CMP, CBC, LDLD ####[address] [id number] [place] [id number] [facility] LDL Cholesterol,Calculated 150 mg/dL High 0-100 [facility] Comment on above: Result Comment: LDL ATP III CLASSIFICATION LDL less than 100 mg/dL Optimal LDL 100-129 mg/dL Near or above optimal LDL 130-159 mg/dL Borderline high LDL 160-189 mg/dL High LDL greater than 189 mg/dL Very high Performed By: #### B 12, LIPID, CMP, CBC, LDLD ####[facility] [id number] Triglyceride w/Reflex 88 mg/dL Normal 0-149 [facility] Comment on above: Result Comment: TRIG ATP III CLASSIFICATION TRIG less than 150 mg/dL Normal TRIG 150-199 mg/dL Borderline high TRIG 200-500 mg/dL High TRIG greater than 500 mg/dL Very high Standard traceable to the Center for Disease Conrtrol and Prevention (CDC) test method. Performed By: #### B 12, LIPID, CMP, CBC, LDLD ####[place] [id number] [address] VLDL CHOLESTEROL 17 mg/dL Normal [facility] Comment on above: Performed By: #### B 12, LIPID, CMP, CBC, LDLD ####[facility] Lymphocytes Auto (Bld) [#/Vo l]Ordered By: Marquise Disla on 07-13-2023 Lymphocytes (Bld) [#/Vol] 3.2 10*3/uL 1.00-4.8 [facility] Lymphocytes/100 WBC Auto (Bl d)Ordered By: Marquise Disla on 07-13-2023 Lymphocytes/100 WBC (Bld) 31.0 % . [facility] MCH Auto (RBC) [Entitic mass ]Ordered By: Marquise Disla on 07-13-2023 MCH (RBC) [Entitic mass] 23.1 pg 24.7-34.3 [facility] MCHC Auto (RBC) [Mass/Vol]Or dered By: Marquise Disla on 07-13-2023 MCHC (RBC) [Mass/Vol] 32.2 g/dL 32.0-35.0 [facility] MCV Auto (RBC) [Entitic vol] Ordered By: Marquise Disla on 07-13-2023 MCV (RBC) [Entitic vol] 71.6 fL 80-100 [facility] Monocytes Auto (Bld) [#/Vol] Ordered By: Marquise Disla on 07-13-2023 Monocytes (Bld) [#/Vol] 0.7 10*3/uL 0.0-0.8 [facility] Monocytes/100 WBC Auto (Bld) Ordered By: Marquise Disla on 07-13-2023 Monocytes/100 WBC (Bld) 6.5 % . [facility] Neutrophils Auto (Bld) [#/Vo l]Ordered By: Marquise Disla on 07-13-2023 Neutrophils (Bld) [#/Vol] 6.0 10*3/uL 1.8-7.7 [facility] Neutrophils/100 WBC Auto (Bl d)Ordered By: Marquise Disla on 07-13-2023 Neutrophils/100 WBC (Bld) 58.0 % . [facility] No Panel InformationOrdered By: Marquise Disla on 07-13-2023 Estimated GFR (CKD-EPI) > 60.0 mL/Min [facility] Creatinine Clearance (Chem N/A [facility] Nucleated erythrocytes [Pres ence] in Blood by Automated countOrdered By: Marquise Disla on 07-13-2023 Nucleated RBC Auto Ql (Bld) 0.2 /100{WBC} 0-0.5 [facility] Platelet mean volume Auto (B ld) [Entitic vol]Ordered By: Marquise Disla on 07-13-2023 Platelet mean volume (Bld) [Entitic vol] 7.2 fL 6.3-10.7 [facility] Platelets Auto (Bld) [#/Vol] Ordered By: Marquise Disla on 07-13-2023 Platelets (Bld) [#/Vol] 394 10*3/uL 150-450 [facility] Potassium [Moles/volume] in Serum or PlasmaOrdered By: Marquise Disla on 07-13-2023 Potassium [Moles/Vol] 4.3 mmol/L 3.5-5.1 [facility] Protein [Mass/volume] in Ser um or PlasmaOrdered By: Marquise Disla on 07-13-2023 Protein [Mass/Vol] 7.6 g/dL 6.4-8.9 [facility] RBC Auto (Bld) [#/Vol]Ordere d By: Marquise Disla on 07-13-2023 RBC (Bld) [#/Vol] 5.55 10*6/uL 3.60-5.00 [facility] Serum or plasma albumin/glob ulin mass ratioOrdered By: Marquise Disla on 07-13-2023 Albumin/Globulin [Mass ratio] 1.2 {ratio} [facility] Serum or plasma anion gap de terminationOrdered By: Marquise Disla on 07-13-2023 Anion gap [Moles/Vol] 11.4 mmol/L 6.0-15.0 [facility] Serum or plasma high density lipoprotein (HDL) cholesterol measurementOrdered By: Marquise Disla on 07-13-2023 Cholesterol in HDL [Mass/Vol] 40 mg/dL 23- [facility] Comment on above: HDL CHOL ATP-III CLA SSIFICATION Cardiovascular RiskHDL > or equal to 60 mg/dL LOWHDL < 40 mg/dL HIGH Serum or plasma total choles terol/high density lipoprotein (HDL) cholesterol mass ratOrdered By: Marquise Disla on 07-13-2023 Cholesterol.total/Candy sterol in HDL [Mass ratio] 5.2 {ratio} <5.0 [facility] Sodium [Moles/volume] in Ser um or PlasmaOrdered By: Marquise Disla on 07-13-2023 Sodium [Moles/Vol] 141 mmol/L 136-145 [facility] Triglyceride [Mass/volume] i n Serum or PlasmaOrdered By: Marquise Disla on 07-13-2023 Triglyceride [Mass/Vol] 88 mg/dL 0-149 [facility] Comment on above: TRIG ATP III CLASSIF ICATIONTRIG less than 150 mg/dL NormalTRIG 150-199 mg/dL Borderline highTRIG 200-500 mg/dL High TRIG greater than 500 mg/dL Very highStandard traceable to the Center for Disease Conrtrol and Prevention (CDC) test method. Urea nitrogen [Mass/volume] in Serum or PlasmaOrdered By: Marquise Disla on 07-13-2023 Urea nitrogen [Mass/Vol] 10 mg/dL 7-25 [facility] Vitamin B12on 07-13-2023 Cobalamin (Vitamin B12) [Mass/Vol] 324 pg/mL Normal 180-914 [facility] Comment on above: Result Comment: PERF ORMED BY: [facility] [address] [place] [address] PATHOLOGIST CHILDR[employer] ENTERTAINER MARTY SALGADO M.D. Performed By: #### B 12, LIPID, CMP, CBC, LDLD ####[place] [id number] [place] [address] [facility] Vitamin B12 ser/plasOrdered By: Marquise Disla on 07-13-2023 Cobalamin (Vitamin B12) [Mass/Vol] 324 pg/mL 180-914 [facility] WBC Auto (Bld) [#/Vol]Ordere d By: Marquise Disla on 07-13-2023 WBC (Bld) [#/Vol] 10.3 10*3/uL 3.8-11.6 [facility] Automated erythrocytes count in urine sediment (number/area)Ordered By: Agustin Sandra on 07-01-2023 RBC Auto (Urine sed) [#/Area] 5-9 [HPF] 0-4 [facility] Automated leukocytes count i n urine sediment (number/area)Ordered By: Agustin Sandra on 07-01-2023 WBC Auto (Urine sed) [#/Area] 0-1 [HPF] 0-4 [facility] Basic Metabolic Panelon 08 Anion gap [Moles/Vol] 11.0 mmol/L Normal 6.0-15.0 [facility] Comment on above: Performed By: #### C BC, BMP ####[address] [place] [address] [facility] Calcium [Mass/Vol] 9.3 mg/dL Normal 8.6-10.3 [facility] Comment on above: Performed By: #### C BC, BMP ####[id number] [place] [id number] [facility] Chloride [Moles/Vol] 104 mmol/L Normal 98-107 [facility] Comment on above: Performed By: #### C BC, BMP ####[address] [place] [address] [facility] CO2 [Moles/Vol] 27.9 mmol/L Normal 21.0-31.0 [facility] Comment on above: Performed By: #### C BC, BMP ####[address] Creatinine [Mass/Vol] 0.79 mg/dL Normal 0.60-1.20 [facility] Comment on above: Performed By: #### C BC, BMP ####[address] Creatinine Clr Calc Pharmacy 127.26 Normal [facility] Comment on above: Result Comment: PERF ORMED BY: [facility] [address] [facility] [place] [address] PATHOLOGIST CHILDR[employer] ENTER[employer]ER MARTY SALGADO M.D. Performed By: #### C BC, BMP ####[address] GFR/1.73 sq M.predicted MDRD (S/P/Bld) [Vol rate/Area] mL/min/{1.73_m2} Normal [facility] Comment on above: Performed By: #### C BC, BMP ####[address] Glucose [Mass/Vol] 92 mg/dL Normal 70-100 [facility] Comment on above: Result Comment: [facility] Glucose Reference Range is dependent on time and content of last meal. Glucose of more than 200 mg/dL in a nonstressed, ambulatory subject supports the diagnosis of Diabetes Mellitus. ADA recommended reference range Performed By: #### C BC, BMP ####[place] [id number] [facility] Potassium [Moles/Vol] 3.9 mmol/L Normal 3.5-5.1 [facility] Comment on above: Performed By: #### C BC, BMP ####[place] [id number] [facility] Sodium [Moles/Vol] 139 mmol/L Normal 136-145 [facility] Comment on above: Performed By: #### C LESLY, ALL ####[facility] [id number] [place] [address] [facility] Urea nitrogen [Mass/Vol] 7 mg/dL Normal 7-25 [facility] Comment on above: Performed By: #### C LESLY, BMP ####[facility] [id number] [place] [address] [facility] Basophils Auto (Bld) [#/Vol] Ordered By: Agustin Sandra on 07-01-2023 Basophils (Bld) [#/Vol] 0.1 10*3/uL 0.0-0.2 [facility] Basophils/100 WBC Auto (Bld) Ordered By: Agustin Sandra on 07-01-2023 Basophils/100 WBC (Bld) 0.6 % . F [facility] Bilirubin Test strip Ql (U)O rdered By: Agustin Sandra on 07-01-2023 Bilirubin Ql (U) Negative Negative [facility] Calcium [Mass/volume] in Ser um or PlasmaOrdered By: Agustin Sandra on 07-01-2023 Calcium [Mass/Vol] 9.3 mg/dL 8.6-10.3 [facility] Carbon dioxide, total [Moles /volume] in Serum or PlasmaOrdered By: Agustin Sandra on 07-01-2023 CO2 [Moles/Vol] 27.9 mmol/L 21.0-31.0 [facility] Chloride [Moles/volume] in S brian or PlasmaOrdered By: Agustin Sandra on 07-01-2023 Chloride [Moles/Vol] 104 mmol/L 98-107 [facility] Color Auto (U)Ordered By: Naun Sandra on 07-01-2023 Color (U) Yellow Yellow [facility] Complete Blood Count Auto Di ffon 07-01-2023 Basophils (Bld) [#/Vol] 0.1 10*3/uL Normal 0.0-0.2 [facility] Comment on above: Result Comment: PERF ORMED BY: [facility] [address] [place] [address] PATHOLOGIST CHILDREN[employer] ENTERTAINER JIANLAN SUN M.D. Performed By: #### C BC, BMP ####[place] [id number] [facility] Basophils/100 WBC (Bld) 0.6 % Normal . T javan [facility] Comment on above: Performed By: #### C BC, BMP ####[place] [id number] [facility] Eosinophils (Bld) [#/Vol] 0.1 10*3/uL Normal 0.0-0.45 [facility] Comment on above: Performed By: #### C BC, BMP ####[place] [id number] [facility] Eosinophils/100 WBC (Bld) 1.1 % Normal . [facility] Comment on above: Performed By: #### C BC, BMP ####[address] Erythrocyte distribution width (RBC) [Ratio] 16.1 % High 11.9-15.3 [facility] Comment on above: Performed By: #### C BC, BMP ####[place] [id number] [facility] Hematocrit (Bld) [Volume fraction] 38.1 % Normal 34.0-46.4 [facility] Comment on above: Performed By: #### C BC, BMP ####[place] [id number] [facility] Hemoglobin (Bld) [Mass/Vol] 12.3 g/dL Normal 11.8-15.4 [facility] Comment on above: Performed By: #### C BC, BMP ####[place] [id number] [facility] Lymphocytes (Bld) [#/Vol] 0.7 10*3/uL Low 1.00-4.8 [facility] Comment on above: Performed By: #### C BC, BMP ####[place] [id number] [facility] Lymphocytes/100 WBC (Bld) 8.1 % Normal . [facility] Comment on above: Performed By: #### C BC, BMP ####[address] MCH (RBC) [Entitic mass] 23.0 pg Low 24.7-34.3 [facility] Comment on above: Performed By: #### C BC, BMP ####[address] MCV (RBC) [Entitic vol] 71.2 fL Low 80-100 T [facility] Comment on above: Performed By: #### C BC, BMP ####[address] Mean Corpuscular HGB Conc 32.3 g/dL Normal 32.0-35.0 [facility] Comment on above: Performed By: #### C BC, BMP ####[address] Monocytes (Bld) [#/Vol] 0.7 10*3/uL Normal 0.0-0.8 [facility] Comment on above: Performed By: #### C BC, BMP ####[address] Monocytes/100 WBC (Bld) 24.10 % High 0.00-20.00 T [facility] Comment on above: Result Comment: For adults in ED, MDW > 20.0 may be associated with a higher risk of sepsis during the first 12 hrs of hospital admission Performed By: #### C BC, BMP ####[address] Monocytes/100 WBC (Bld) 8.5 % Normal . T [facility] Comment on above: Performed By: #### C BC, BMP ####[address] Neutrophils (Bld) [#/Vol] 6.7 10*3/uL Normal 1.8-7.7 [facility] Comment on above: Performed By: #### C BC, BMP ####[place] [id number] [facility] Neutrophils/100 WBC (Bld) 81.7 % Normal . [facility] Comment on above: Performed By: #### C BC, BMP ####[address] NRBC% 0.0 /100{WBC} Normal 0-0.5 [facility] Comment on above: Performed By: #### C BC, BMP ####[address] Platelet mean volume (Bld) [Entitic vol] 7.4 fL Normal 6.3-10.7 [facility] Comment on above: Performed By: #### C LESLY, BMP ####[address] Platelets (Bld) [#/Vol] 320 10*3/uL Normal 150-450 [facility] Comment on above: Performed By: #### C LESLY, BMP ####[address] RBC (Bld) [#/Vol] 5.35 10*6/uL High 3.60-5.00 [facility] Comment on above: Performed By: #### C LESLY, BMP ####[address] WBC (Bld) [#/Vol] 8.2 10*3/uL Normal 3.8-11.6 [facility] Comment on above: Performed By: #### C LESLY, BMP ####[address] Creatinine [Mass/volume] in Serum or PlasmaOrdered By: Agustin Sandra on 07-01-2023 Creatinine [Mass/Vol] 0.79 mg/dL 0.60-1.20 [facility] Dipstick and Microscopicon 0 07-01-2023 Appearance (U) Cloudy Critically abnormal Clear [facility] Comment on above: Order Comment: Name Collection Type:: Clean-Voided Midstream Performed By: #### A [facility] #### [place] [address] [place] Bacteria,Urine None Seen Normal None Seen [facility] Comment on above: Order Comment: Name Collection Type:: Clean-Voided Midstream Performed By: #### A DDONUAPLUS, UHCG #### [place] [address] [place] Bilirubin,Urine Negative Normal Negative [facility] Comment on above: Order Comment: Name Collection Type:: Clean-Voided Midstream Performed By: #### A DDONUAPLUS, UHCG #### [place] [address] [place] Color (U) Yellow Normal Yellow [facility] Comment on above: Order Comment: Name Collection Type:: Clean-Voided Midstream Performed By: #### A DDONUAPLUS, UHCG #### [address] Glucose Ql (U) Normal Normal Normal [facility] Comment on above: Order Comment: Name Collection Type:: Clean-Voided Midstream Performed By: #### A DDONUAPLUS, UHCG #### [place] [address] [place] Hyaline Casts,Urine None Seen Normal 0-8 [facility] Comment on above: Order Comment: Name Collection Type:: Clean-Voided Midstream Performed By: #### A DDONUAPLUS, UHCG #### [place] [address] [place] Ketones Ql (U) Negative Normal Negative [facility] Comment on above: Order Comment: Name Collection Type:: Clean-Voided Midstream Performed By: #### A DDONUAPLUS, UHCG #### [place] [address] [place] Leukocyte esterase Test strip Ql (U) Negative Normal Negative [facility] Comment on above: Order Comment: Name Collection Type:: Clean-Voided Midstream Performed By: #### A DDONUAPLUS, UHCG #### [place] [address] [place] Nitrite,Urine Negative Normal Negative [facility] Comment on above: Order Comment: Name Collection Type:: Clean-Voided Midstream Performed By: #### A DDONUAPLUS, UHCG #### [address] Occult Blood,Urine Trace High Negative [facility] Comment on above: Order Comment: Name Collection Type:: Clean-Voided Midstream Performed By: #### A DDONUAPLUS, UHCG #### [address] pH (U) 8.5 [pH] Normal 5.0-9.0 [facility] Comment on above: Order Comment: Name Collection Type:: Clean-Voided Midstream Performed By: #### A DDONUAPLUS, UHCG #### [address] Protein,Urine Negative Normal Negative [facility] Comment on above: Order Comment: Name Collection Type:: Clean-Voided Midstream Performed By: #### A DDONUAPLUS, UHCG #### [address] RBC,Urine 5-9 High 0-4 [facility] Comment on above: Order Comment: Name Collection Type:: Clean-Voided Midstream Performed By: #### A DDONUAPLUS, UHCG #### [address] Specificy [place],Urine 1.012 Normal 1.001-1.030 [facility] Comment on above: Order Comment: Name Collection Type:: Clean-Voided Midstream Performed By: #### A DDONUAPLUS, UHCG #### [place] [address] [place] Squamous Epithelial Cell,Urine 0-1 Normal 0-2 [facility] Comment on above: Order Comment: Name Collection Type:: Clean-Voided Midstream Performed By: #### A DDONUAPLUS, UHCG #### [address] Urobilinogen,Urine Normal Normal Normal [facility] Comment on above: Order Comment: Name Collection Type:: Clean-Voided Midstream Performed By: #### A DDONUAPLUS, CG #### [facility] [address] WBC LM.HPF (Urine sed) [#/Area] 0 /[HPF] Normal 0-4 [facility] Comment on above: Order Comment: Name Collection Type:: Clean-Voided Midstream Performed By: #### A DDONUAPLUS, CG #### [facility] [address] Eosinophils Auto (Bld) [#/Vo l]Ordered By: Agustin Sandra on 07-01-2023 Eosinophils (Bld) [#/Vol] 0.1 10*3/uL 0.0-0.45 [facility] Eosinophils/100 WBC Auto (Bl d)Ordered By: Agustin Sandra on 07-01-2023 Eosinophils/100 WBC (Bld) 1.1 % . [facility] Erythrocyte distribution wid th Auto (RBC) [Ratio]Ordered By: Agustin Sandra on 07-01-2023 Erythrocyte distribution width (RBC) [Ratio] 16.1 % 11.9-15.3 [facility] Glucose [Mass/volume] in Ser um or PlasmaOrdered By: Agustin Sandra on 07-01-2023 Glucose [Mass/Vol] 92 mg/dL 70-100 [facility] Comment on above: ADA recommended refe rence rangeRandom Glucose Reference Range is dependent on time and content of last meal. Glucose of more than 200 mg/dL in a nonstressed, ambulatory subject supports the diagnosis of Diabetes Mellitus. HCG ( test) IA.rapi d Ql (U)Ordered By: Agustin Sandra on 07-01-2023 HCG ( test) Ql (U) Negative [facility] HCG,Urineon 07-01-2023 Beta HCG ( test) Ql (U) Negative Normal [facility] Comment on above: Order Comment: Name Collection Type:: Clean-Voided Midstream Result Comment: PERF ORMED BY: [place] [address] PATHOLOGIST CHILDREN'S ENTERTAINER MARTY SALGADO M.D. Performed By: #### A DDONUAPLUS, [facility] #### [address] Hematocrit Auto (Bld) [Volum e fraction]Ordered By: Agustin Sandra on 07-01-2023 Hematocrit (Bld) [Volume fraction] 38.1 % 34.0-46.4 [facility] Hemoglobin [Mass/volume] in BloodOrdered By: Agustin Sandra on 07-01-2023 Hemoglobin (Bld) [Mass/Vol] 12.3 g/dL 11.8-15.4 [facility] Ketones Auto test strip (U) [Mass/Vol]Ordered By: Agustin Sandra on 07-01-2023 Ketones (U) [Mass/Vol] Negative Negative [facility] - UrinalysisOrder ed By: Agustin Sandra on 07-01-2023 Hyaline casts LM Ql (Urine sed) None seen [LPF] 0-8 [facility] Leukocytes [#/volume] correc abdias for nucleated erythrocytes in Blood by Automated counOrdered By: Agustin Sandra on 07-01-2023 WBC corrected for nucl RBC Auto (Bld) [#/Vol] 8.2 10*3/uL 3.8-11.6 [facility] Lymphocytes Auto (Bld) [#/Vo l]Ordered By: Agustin Sandra on 07-01-2023 Lymphocytes (Bld) [#/Vol] 0.7 10*3/uL 1.00-4.8 [facility] Lymphocytes/100 WBC Auto (Bl d)Ordered By: Agustin Sandra on 07-01-2023 Lymphocytes/100 WBC (Bld) 8.1 % . [facility] MCH Auto (RBC) [Entitic mass ]Ordered By: Agustin Sandra on 07-01-2023 MCH (RBC) [Entitic mass] 23.0 pg 24.7-34.3 [facility] MCHC Auto (RBC) [Mass/Vol]Or dered By: Agustin Sandra on 07-01-2023 MCHC (RBC) [Mass/Vol] 32.3 g/dL 32.0-35.0 [facility] MCV Auto (RBC) [Entitic vol] Ordered By: Agustin Sandra on 07-01-2023 MCV (RBC) [Entitic vol] 71.2 fL 80-100 F [facility] Monocyte distribution width [Entitic volume] in Blood by AutomatedOrdered By: Agustin Sandra on 07-01-2023 Monocyte distribution width Auto (Bld) [Entitic vol] 24.10 % 0.00-20.00 [facility] Comment on above: For adults in ED, MD W > 20.0 may be associated with a higher risk of sepsis during the first 12 hrs of hospital admission Monocytes Auto (Bld) [#/Vol] Ordered By: Agustin Sandra on 07-01-2023 Monocytes (Bld) [#/Vol] 0.7 10*3/uL 0.0-0.8 [facility] Monocytes/100 WBC Auto (Bld) Ordered By: Agustin Sandra on 07-01-2023 Monocytes/100 WBC (Bld) 8.5 % . F [facility] Neutrophils Auto (Bld) [#/Vo l]Ordered By: Agustin Sandra on 07-01-2023 Neutrophils (Bld) [#/Vol] 6.7 10*3/uL 1.8-7.7 [facility] Neutrophils/100 WBC Auto (Bl d)Ordered By: Agustin Sandra on 07-01-2023 Neutrophils/100 WBC (Bld) 81.7 % . [facility] Nitrite Test strip Ql (U)Ord ered By: Agustin Sandra on 07-01-2023 Nitrite Ql (U) Negative Negative [facility] No Panel InformationOrdered By: Agustin Sandra on 07-01-2023 Estimated GFR (CKD-EPI) > 60.0 mL/Min [facility] Creatinine Clearance (Chem 127.26 [facility] Nucleated erythrocytes [Pres ence] in Blood by Automated countOrdered By: Agustin Sandra on 07-01-2023 Nucleated RBC Auto Ql (Bld) 0.0 /100{WBC} 0-0.5 [facility] Platelet mean volume Auto (B ld) [Entitic vol]Ordered By: Agustin Sandra on 07-01-2023 Platelet mean volume (Bld) [Entitic vol] 7.4 fL 6.3-10.7 [facility] Platelets Auto (Bld) [#/Vol] Ordered By: Agustin Sandra on 07-01-2023 Platelets (Bld) [#/Vol] 320 10*3/uL 150-450 [facility] Potassium [Moles/volume] in Serum or PlasmaOrdered By: Agustin Sandra on 07-01-2023 Potassium [Moles/Vol] 3.9 mmol/L 3.5-5.1 [facility] Protein Auto test strip (U) [Mass/Vol]Ordered By: Agustin Sandra on 07-01-2023 Protein (U) [Mass/Vol] Negative Negative [facility] RBC Auto (Bld) [#/Vol]Ordere d By: Agustin Sandra on 07-01-2023 RBC (Bld) [#/Vol] 5.35 10*6/uL 3.60-5.00 [facility] Serum or plasma anion gap de terminationOrdered By: Agustin Sandra on 07-01-2023 Anion gap [Moles/Vol] 11.0 mmol/L 6.0-15.0 [facility] Sodium [Moles/volume] in Ser um or PlasmaOrdered By: Agustin Sandra on 07-01-2023 Sodium [Moles/Vol] 139 mmol/L 136-145 [facility] Specific gravity Auto test s trip (U) [Rel density]Ordered By: Agustin Sandra on 07-01-2023 Specific gravity (U) [Rel density] 1.012 1.001-1.030 [facility] Squamous epithelial cells de tection in urine sediment by light microscopyOrdered By: Agustin Sandra on 07-01-2023 Epithelial cells.squamous LM Ql (Urine sed) 0-1 [HPF] 0-2 [facility] Urea nitrogen [Mass/volume] in Serum or PlasmaOrdered By: Agustin Sandra on 07-01-2023 Urea nitrogen [Mass/Vol] 7 mg/dL 7-25 [facility] Urine bacteria detection by automated methodOrdered By: Agustin Sandra on 07-01-2023 Bacteria Auto Ql (U) None seen None Seen [facility] Urine clarity by refractomet ry automatedOrdered By: Agustin Sandra on 07-01-2023 Clarity Refractometry automated (U) Cloudy Clear [facility] Urine glucose measurement by automated test strip (mass/volume)Ordered By: Agustin Sandra on 07-01-2023 Glucose Auto test strip (U) [Mass/Vol] Normal mg/dL Normal [facility] Urine hemoglobin detection b y automated test stripOrdered By: Agustin Sandra on 07-01-2023 Hemoglobin Auto test strip Ql (U) Trace Negative [facility] Urine leukocyte esterase det ection by automated test stripOrdered By: Agustin Sandra on 07-01-2023 Leukocyte esterase Auto test strip Ql (U) Negative Negative [facility] Urobilinogen Auto test strip (U) [Mass/Vol]Ordered By: Agustin Sanrda on 07-01-2023 Urobilinogen (U) [Mass/Vol] Normal mg/dL Normal [facility] WBC Auto (Bld) [#/Vol]Ordere d By: Agustin Sandra on 07-01-2023 WBC (Bld) [#/Vol] 8.2 10*3/uL 3.8-11.6 [facility] pH Auto test strip (U)Ordere d By: Agustin Sandra on 07-01-2023 pH (U) 8.5 [pH] 5.0-9.[address] [facility] [address] head/brain wo conon 06-19 CT head/[place] [address] CT Scan Report Signed Patient: Loy Tam MR#: [id number] : 1980 Acct:[id number] Age/Sex: 42 / F ADM Date: 06/18/23 Loc: ER Room: Type: [facility] ER Attending Dr: Copies to: [...] Alan Matta M.D.06/19/2023 10:48 AM Dictation Location: [place] [address] Transcribed By: [facility] 06/19/23 1048 Dictated By: Alan Matta II, MD 06/19/23 1047 Signed By: 06/19/23 1048 Normal [facility] XR shoulder LT min 2V*on XR shoulder LT min 2V* [place] [address] XRay Report Signed Patient: Loy Tam MR#: [id number] : 1980 Acct:[id number] Age/Sex: 42 / F ADM Date: 06/18/23 Loc: ER Room: Type: [facility] ER Attending Dr: Copies to: [...] Alan Matta M.D.06/19/2023 10:53 AM Dictation Location: [place] [address] Transcribed By: [facility] 06/19/23 1053 Dictated By: Alan Matta II, MD 06/19/23 1049 Signed By: 06/19/23 1053 Normal [facility] ECG 12 lead ECGon 06-18-2023 ECG 12 lead ECG [place] [id number] Electrocardiograph Report Signed Patient: Loy Tam MR#: [id number] : 1980 Acct:[id number] Age/Sex: 42 / F ADM Date: 06/18/23 Loc: ER Room: Type: [facility] ER Attending Dr: Ordering Provider: [...] was found Confirmed by GABRIEL BREAUX MD ([id number]) on 06/19/2023 3:14:16 AM Referred By: Electronically Signed By:GABRIEL BREAUX MD Transcribed By: MUS Signed By Gabriel Breaux Jr, MD 0754 Normal [facility] XR wrist LT min 3V*on 2022 XR wrist LT min 3V* [address] [address] XRay Report Signed Patient: Loy Tam MR#: [id number] : 1980 Acct:[id number] Age/Sex: 42 / F ADM Date: 06/14/23 Loc: SOXD Room: Type: [facility] CLI Attending Dr: Gabriel Rosenberg MD [...] SEEN. Impression dictated by: Marquise Mendenhall Jr., D.O.06/14/2023 2:35 PM Dictation Location: [place] [address] Transcribed By: [facility] 06/14/23 1435 Dictated By: Marquise Mendenhall Jr, DO 06/14/23 1432 Signed By: 06/14/23 1435 Normal [facility] NM priyanka perf SPECT rest stron 06-07-2023 NM priyanka perf SPECT rest str [facility] Main [address] [address] Nuclear Medicine Report Signed Patient: Loy Tam MR#: [id number] : 1980 Acct:[id number] Age/Sex: 42 / F ADM Date: 05/30/23 Loc: ER Room: Type: [facility] ER Attending Dr: Copies to: [...] Hanson MD 06/07/23 1147 Signed By: 06/07/23 1250 Normal [facility] STR cardiac stress/lexiscano n 06-03-2023 STR cardiac stress/lexiscan [facility] [place] [address] Cardiac Stress Test Signed Patient: Loy Tam MR#: [id number] : 1980 Acct:[id number] Age/Sex: 42 / F ADM Date: 05/30/23 Loc: ER Room: Type: [facility] ER Attending Dr: Copies to: DO Magy Hansen MD, [facility] Ordering Provider: Leonel Guerra DO Date [...] CAILIN 06/03/232034 Dictated By: Magy Donis MD, [facility] 06/03/231741 Signed By: 06/06/23 0911 Normal [facility] Basic Metabolic Panelon 07-0 Anion gap [Moles/Vol] 10.2 mmol/L Normal 6.0-15.0 [facility] Comment on above: Performed By: #### C BC, HS TROP, BMP #### [facility] [address] [place] [address] [place] Calcium [Mass/Vol] 9.1 mg/dL Normal 8.6-10.3 [facility] Comment on above: Performed By: #### C BC, HS TROP, BMP #### [facility] [address] [place] [address] [place] Chloride [Moles/Vol] 106 mmol/L Normal 98-107 [facility] Comment on above: Performed By: #### C BC, HS TROP, BMP #### [facility] [address] [place] [address] [place] CO2 [Moles/Vol] 29.3 mmol/L Normal 21.0-31.0 [facility] Comment on above: Performed By: #### C BC, HS TROP, BMP #### [facility] [address] [place] [address] [place] Creatinine [Mass/Vol] 0.87 mg/dL Normal 0.60-1.20 [facility] Comment on above: Performed By: #### C BC, HS TROP, BMP #### [facility] [address] [place] [address] [place] Creatinine Clr Calc Pharmacy 112.72 Normal [facility] Comment on above: Result Comment: PERF ORMED BY: [place] [address] PATHOLOGIST [employer] MARTY SALGADO M.D. Performed By: #### C BC, HS TROP, BMP #### [facility] [address] [place] [address] [place] GFR/1.73 sq M.predicted MDRD (S/P/Bld) [Vol rate/Area] mL/min/{1.73_m2} Normal [facility] Comment on above: Performed By: #### C BC, HS TROP, BMP #### [facility] [address] [place] [address] [place] Glucose [Mass/Vol] 91 mg/dL Normal 70-100 [facility] Comment on above: Result Comment: [place] Glucose Reference Range is dependent on time and content of last meal. Glucose of more than 200 mg/dL in a nonstressed, ambulatory subject supports the diagnosis of Diabetes Mellitus. ADA recommended reference range Performed By: #### C BC, HS TROP, BMP #### [facility] [address] Potassium [Moles/Vol] 3.5 mmol/L Normal 3.5-5.1 [facility] Comment on above: Performed By: #### C BC, HS TROP, BMP #### [facility] [address] Sodium [Moles/Vol] 142 mmol/L Normal 136-145 [facility] Comment on above: Performed By: #### C BC, HS TROP, BMP #### [facility] [address] Urea nitrogen [Mass/Vol] 9 mg/dL Normal 7-25 [facility] Comment on above: Performed By: #### C BC, HS TROP, BMP #### [facility] [address] Basophils Auto (Bld) [#/Vol] Ordered By: Leonel Guerra on 05-31-2023 Basophils (Bld) [#/Vol] 0.1 10*3/uL 0.0-0.2 [facility] Basophils/100 WBC Auto (Bld) Ordered By: Leonel Guerra on 05-31-2023 Basophils/100 WBC (Bld) 1.5 % . F [facility] Calcium [Mass/volume] in Ser um or PlasmaOrdered By: Leonel Guerra on 05-31-2023 Calcium [Mass/Vol] 9.1 mg/dL 8.6-10.3 [facility] Carbon dioxide, total [Moles /volume] in Serum or PlasmaOrdered By: Leonel Guerra on 05-31-2023 CO2 [Moles/Vol] 29.3 mmol/L 21.0-31.0 [facility] Chloride [Moles/volume] in S brian or PlasmaOrdered By: Leonel Charlie on 05-31-2023 Chloride [Moles/Vol] 106 mmol/L 98-107 [facility] Complete Blood Count Auto Di ffon 05-31-2023 Basophils (Bld) [#/Vol] 0.1 10*3/uL Normal 0.0-0.2 [facility] Comment on above: Result Comment: PERF ORMED BY: [place] [address] PATHOLOGIST [employer] MARTY SALGADO M.D. Performed By: #### C BC, HS TROP, BMP #### [address] Basophils/100 WBC (Bld) 1.5 % Normal . [facility] Comment on above: Performed By: #### C BC, HS TROP, BMP #### [place] [address] [place] Eosinophils (Bld) [#/Vol] 0.3 10*3/uL Normal 0.0-0.45 [facility] Comment on above: Performed By: #### C BC, HS TROP, BMP #### [address] Eosinophils/100 WBC (Bld) 3.5 % Normal . [facility] Comment on above: Performed By: #### C BC, HS TROP, BMP #### [address] Erythrocyte distribution width (RBC) [Ratio] 16.2 % High 11.9-15.3 [facility] Comment on above: Performed By: #### C BC, HS TROP, BMP #### [address] Hematocrit (Bld) [Volume fraction] 38.8 % Normal 34.0-46.4 [facility] Comment on above: Performed By: #### C BC, HS TROP, BMP #### [address] Hemoglobin (Bld) [Mass/Vol] 12.4 g/dL Normal 11.8-15.4 [facility] Comment on above: Performed By: #### C BC, HS TROP, BMP #### [address] Lymphocytes (Bld) [#/Vol] 3.7 10*3/uL Normal 1.00-4.8 [facility] Comment on above: Performed By: #### C BC, HS TROP, BMP #### [address] Lymphocytes/100 WBC (Bld) 37.9 % Normal . [facility] Comment on above: Performed By: #### C BC, HS TROP, BMP #### [address] MCH (RBC) [Entitic mass] 23.0 pg Low 24.7-34.3 [facility] Comment on above: Performed By: #### C BC, HS TROP, BMP #### [address] MCV (RBC) [Entitic vol] 72.0 fL Low 80-100 T [facility] Comment on above: Performed By: #### C BC, HS TROP, BMP #### [address] Mean Corpuscular HGB Conc 31.9 g/dL Low 32.0-35.0 [facility] Comment on above: Performed By: #### C BC, HS TROP, BMP #### [place] [address] [place] Monocytes (Bld) [#/Vol] 0.5 10*3/uL Normal 0.0-0.8 [facility] Comment on above: Performed By: #### C BC, HS TROP, BMP #### [place] [address] [place] Monocytes/100 WBC (Bld) 18.79 % Normal 0.00-20.00 T [facility] Comment on above: Performed By: #### C BC, HS TROP, BMP #### [facility] [address] [place] [address] [place] Monocytes/100 WBC (Bld) 5.1 % Normal . T [facility] Comment on above: Performed By: #### C BC, HS TROP, BMP #### [facility] [address] [place] [address] [place] Neutrophils (Bld) [#/Vol] 5.1 10*3/uL Normal 1.8-7.7 [facility] Comment on above: Performed By: #### C BC, HS TROP, BMP #### [facility] [address] [place] [address] [place] Neutrophils/100 WBC (Bld) 52.0 % Normal . [facility] Comment on above: Performed By: #### C BC, HS TROP, BMP #### [facility] [address] [place] [address] [place] NRBC% 0.2 /100{WBC} Normal 0-0.5 [facility] Comment on above: Performed By: #### C BC, HS TROP, BMP #### [facility] [address] [place] [address] [place] Platelet mean volume (Bld) [Entitic vol] 7.3 fL Normal 6.3-10.7 [facility] Comment on above: Performed By: #### C BC, HS TROP, BMP #### [facility] [address] [place] [address] [place] Platelets (Bld) [#/Vol] 349 10*3/uL Normal 150-450 [facility] Comment on above: Performed By: #### C BC, HS TROP, BMP #### [facility] [address] [place] [address] [place] RBC (Bld) [#/Vol] 5.39 10*6/uL High 3.60-5.00 [facility] Comment on above: Performed By: #### C BC, HS TROP, BMP #### [facility] [address] [place] [address] [place] WBC (Bld) [#/Vol] 9.9 10*3/uL Normal 3.8-11.6 [facility] Comment on above: Performed By: #### C BC, HS TROP, BMP #### [address] Creatinine [Mass/volume] in Serum or PlasmaOrdered By: Leonel Guerra on 05-31-2023 Creatinine [Mass/Vol] 0.87 mg/dL 0.60-1.20 [facility] ECG 12 lead ECGon 05-31-2023 ECG 12 lead ECG [facility] Main [place] [address] [place] [address] Electrocardiograph Report Signed Patient: Loy Tam MR#: [id number] : 1980 Acct:[id number] Age/Sex: 42 / F ADM Date: 05/30/23 Loc: ER Room: Type: [facility] ER Attending Dr: Ordering Provider: Leonel [...] was found Confirmed by LEONEL GUERRA DO ([id number]) on 05/31/2023 2:06:12 AM Referred By: Electronically Signed By:LEONEL GUERRA DO Transcribed By: MUS Signed By Leonel Guerra DO 05/31 0206 Normal [facility] Eosinophils Auto (Bld) [#/Vo l]Ordered By: Leonel Guerra on 05-31-2023 Eosinophils (Bld) [#/Vol] 0.3 10*3/uL 0.0-0.45 [facility] Eosinophils/100 WBC Auto (Bl d)Ordered By: Leonel Guerra on 05-31-2023 Eosinophils/100 WBC (Bld) 3.5 % . [facility] Erythrocyte distribution wid th Auto (RBC) [Ratio]Ordered By: Leonel Guerra on 05-31-2023 Erythrocyte distribution width (RBC) [Ratio] 16.2 % 11.9-15.3 [facility] Glucose [Mass/volume] in Ser um or PlasmaOrdered By: Leonel Guerra on 05-31-2023 Glucose [Mass/Vol] 91 mg/dL 70-100 [facility] Comment on above: ADA recommended refe rence rangeRandom Glucose Reference Range is dependent on time and content of last meal. Glucose of more than 200 mg/dL in a nonstressed, ambulatory subject supports the diagnosis of Diabetes Mellitus. Hematocrit Auto (Bld) [Volum e fraction]Ordered By: Leonel Guerra on 05-31-2023 Hematocrit (Bld) [Volume fraction] 38.8 % 34.0-46.4 [facility] Hemoglobin [Mass/volume] in BloodOrdered By: Leonel Guerra on 05-31-2023 Hemoglobin (Bld) [Mass/Vol] 12.4 g/dL 11.8-15.4 [facility] Leukocytes [#/volume] correc abdias for nucleated erythrocytes in Blood by Automated counOrdered By: Leonel Guerra on 05-31-2023 WBC corrected for nucl RBC Auto (Bld) [#/Vol] 9.9 10*3/uL 3.8-11.6 [facility] Lymphocytes Auto (Bld) [#/Vo l]Ordered By: Leonel Guerra on 05-31-2023 Lymphocytes (Bld) [#/Vol] 3.7 10*3/uL 1.00-4.8 [facility] Lymphocytes/100 WBC Auto (Bl d)Ordered By: Leonel Guerra on 05-31-2023 Lymphocytes/100 WBC (Bld) 37.9 % . [facility] MCH Auto (RBC) [Entitic mass ]Ordered By: Leonel Guerra on 05-31-2023 MCH (RBC) [Entitic mass] 23.0 pg 24.7-34.3 [facility] MCHC Auto (RBC) [Mass/Vol]Or dered By: Leonel Guerra on 05-31-2023 MCHC (RBC) [Mass/Vol] 31.9 g/dL 32.0-35.0 [facility] MCV Auto (RBC) [Entitic vol] Ordered By: Leonel Guerra on 05-31-2023 MCV (RBC) [Entitic vol] 72.0 fL 80-100 [facility] Monocyte distribution width [Entitic volume] in Blood by AutomatedOrdered By: Leonel Guerra on 05-31-2023 Monocyte distribution width Auto (Bld) [Entitic vol] 18.79 % 0.00-20.00 [facility] Monocytes Auto (Bld) [#/Vol] Ordered By: Leonel Guerra on 05-31-2023 Monocytes (Bld) [#/Vol] 0.5 10*3/uL 0.0-0.8 [facility] Monocytes/100 WBC Auto (Bld) Ordered By: Leonel Guerra on 05-31-2023 Monocytes/100 WBC (Bld) 5.1 % . [facility] Neutrophils Auto (Bld) [#/Vo l]Ordered By: Leonel Guerra on 05-31-2023 Neutrophils (Bld) [#/Vol] 5.1 10*3/uL 1.8-7.7 [facility] Neutrophils/100 WBC Auto (Bl d)Ordered By: Leonel Guerra on 05-31-2023 Neutrophils/100 WBC (Bld) 52.0 % . [facility] No Panel InformationOrdered By: Leonel Guerra on 05-31-2023 Estimated GFR (CKD-EPI) > 60.0 mL/Min [facility] Creatinine Clearance (Chem 112.72 [facility] Nucleated erythrocytes [Pres ence] in Blood by Automated countOrdered By: Leonel Guerra on 05-31-2023 Nucleated RBC Auto Ql (Bld) 0.2 /100{WBC} 0-0.5 [facility] Platelet mean volume Auto (B ld) [Entitic vol]Ordered By: Leonel Guerra on 05-31-2023 Platelet mean volume (Bld) [Entitic vol] 7.3 fL 6.3-10.7 [facility] Platelets Auto (Bld) [#/Vol] Ordered By: Leonel Guerra on 05-31-2023 Platelets (Bld) [#/Vol] 349 10*3/uL 150-450 [facility] Potassium [Moles/volume] in Serum or PlasmaOrdered By: Leonel Guerra on 05-31-2023 Potassium [Moles/Vol] 3.5 mmol/L 3.5-5.1 [facility] RBC Auto (Bld) [#/Vol]Ordere d By: Leonel Guerra on 05-31-2023 RBC (Bld) [#/Vol] 5.39 10*6/uL 3.60-5.00 [facility] Serum or plasma anion gap de terminationOrdered By: Leonel Guerra on 05-31-2023 Anion gap [Moles/Vol] 10.2 mmol/L 6.0-15.0 [facility] Sodium [Moles/volume] in Ser um or PlasmaOrdered By: Leonel Guerra on 05-31-2023 Sodium [Moles/Vol] 142 mmol/L 136-145 [facility] Troponin I High Sensitivityo n 05-31-2023 Troponin I High Sensitivity 5.9 pg/mL Normal 0.0-15.0 [facility] Comment on above: Result Comment: PERF ORMED BY: [place] [address] PATHOLOGIST CH[employer] MARTY SALGADO M.D. Performed By: #### H S TROP ####[facility] [address] Troponin I High Sensitivity 6.5 pg/mL Normal 0.0-15.0 [facility] Comment on above: Result Comment: PERF ORMED BY: [facility] [address] [place] [address] PATHOLOGIST [employer] MARTY SALGADO M.D. Performed By: #### C BC, HS TROP, BMP #### [facility] [address] Troponin I.cardiac [Mass/vol ume] in Serum or Plasma by Detection limit <= 0.01 ng/Ordered By: Leonel Guerra on 05-31-2023 Troponin I.cardiac DL <= 0.01 ng/mL [Mass/Vol] 5.9 pg/mL 0.0-15.0 [facility] Urea nitrogen [Mass/volume] in Serum or PlasmaOrdered By: Leonel Guerra on 05-31-2023 Urea nitrogen [Mass/Vol] 9 mg/dL 7-25 [facility] WBC Auto (Bld) [#/Vol]Ordere d By: Leonel Guerra on 05-31-2023 WBC (Bld) [#/Vol] 9.9 10*3/uL 3.8-11.6 [facility] XR chest 2V*on 05-31-2023 XR chest 2V* [facility] Main [address] [address] XRay Report Signed Patient: Loy Tam MR#: [id number] : 1980 Acct:[id number] Age/Sex: 42 / F ADM Date: 05/30/23 Loc: ER Room: Type: [facility] ER Attending Dr: Copies to: [...] Ancelmo Castellano M.D.05/31/2023 8:23 AM Dictation Location: [place] [address] Transcribed By: [facility] 05/31/23822 Dictated By: Ancelmo Castellano DO 05/31/23822 Signed By: 05/31/23822 Normal [facility] XR wrist LT min 3V*on 2022 XR wrist LT min 3V* [facility] Main [address] [address] XRay Report Signed Patient: Loy Tam MR#: [id number] : 1980 Acct:[id number] Age/Sex: 42 / F ADM Date: 04/18/23 [...] Alan Matta M.D.04/18/2023 1:04 PM Dictation Location: [place] [address] Transcribed By: [facility] 04/18/23 1304 Dictated By: Alan Matta II, MD 04/18/23 1302 Signed By: 04/18/23 1304 Normal [facility] Serum heterophile antibody d etection by latex agglutinationOrdered By: Arnoldo Pérez on 01-19-2023 Heterophile Ab LA Ql (S) Negative Negative [facility] Streptococcus pyogenes antig en detectionOrdered By: Arnoldo Pérez on 01-19-2023 S. pyogenes Ag Ql (Unsp spec) [facility] COVID CepheidOrdered By: Radha Cooper on 01-08-2023 SARS-CoV-2 (COVID-19) Ab IA Ql Negative Negative [facility] Comment on above: This is a duplicate Cepheid Xpert Xpress CoV-2/Flu/RSV Plus RNA by RT-PCR result to be used for statistical tracking purpose only. SARS-CoV-2 (COVID-19) RNA AMBROSE+probe Ql (Unsp spec) [facility] Streptococcus pyogenes antig en detectionOrdered By: Caitlyn Cooper on 01-04-2023 S. pyogenes Ag Ql (Unsp spec) [facility] COVID CepheidOrdered By: Cachorro Breaux on 11-17-2022 SARS-CoV-2 (COVID-19) Ab IA Ql Negative Negative [facility] Comment on above: This is a duplicate Cepheid Xpert Xpress CoV-2/Flu/RSV Plus RNA by RT-PCR result to be used for statistical tracking purpose only. SARS-CoV-2 (COVID-19) RNA AMBROSE+probe Ql (Unsp spec) [facility] SARS-CoV-2 (COVID-19) RNA AMBROSE+probe Ql (Unsp spec) [facility] COVID-19 SOFIAOrdered By: Jose Pearl on 08-23-2022 SARS-CoV+SARS-CoV-2 (COVID-19) Ag IA.rapid Ql (Resp) Negative Negative [facility] Comment on above: This is a duplicate Lilibeth SARS Antigen (REGINO) result to be used for statistical tracking purpose only. No Panel InformationOrdered By: Praveen Pearl on 08-23-2022 SARS Antigen (LFIA) [facility] POINT OF CARE GLUCOSEon 05-0 Glucose [Mass/Vol] 116 mg/dL Critically high 74-106 [facility] Comment on above: Performed By: #### P OCGLUC #### [facility] [address] [place] [address] [address] Mai Salamanca PREG HCG QUALon 03-30-2022 , QUAL Negative Normal NEGATIVE [facility] Comment on above: Performed By: #### P REG #### [facility] [address] [place], [place] [address] Dr. Mai Salamanca Vital Signs Date Time Vital Sign Value Performing Clinician Facility 07-01-2023 11:53-0400 Diastolic blood pressure 85 mm[Hg] [facility] Work Phone: [facility] 07-01-2023 11:53-0400 Heart rate 92 /min [facility] Work Phone: [facility] 07-01-2023 11:53-0400 Systolic blood pressure 149 mm[Hg] [facility] Work Phone: [facility] 07-01-2023 09:37-0400 Body height 176.53 cm [facility] Work Phone: [facility] 07-01-2023 09:37-0400 Body temperature 99.3 [degF] [facility] Work Phone: [facility] 07-01-2023 09:37-0400 Body weight 122.46 kg [facility] Work Phone: [facility] 07-01-2023 09:37-0400 Respiratory rate 24 /min [facility] Work Phone: [facility] 07-01-2023 09:37-0400 SaO2% (BldA) [Mass fraction] 99 % [facility] Work Phone: [facility] 06-19-2023 00:00-0400 Diastolic blood pressure 61 mm[Hg] [facility] Work Phone: [facility] 06-19-2023 00:00-0400 Heart rate 71 /min [facility] Work Phone: [facility] 06-19-2023 00:00-0400 Respiratory rate 20 /min [facility] Work Phone: [facility] 06-19-2023 00:00-0400 SaO2% (BldA) [Mass fraction] 100 % [facility] Work Phone: [facility] 06-19-2023 00:00-0400 Systolic blood pressure 129 mm[Hg] [facility] Work Phone: [facility] 06-18-2023 21:21-0400 Body height 175.26 cm [facility] Work Phone: [facility] 06-18-2023 21:21-0400 Body weight 117.02 kg [facility] Work Phone: [facility] 06-18-2023 21:20-0400 Body temperature 98.6 [degF] [facility] Work Phone: [facility] 06-03-2023 11:58-0400 Diastolic blood pressure 90 mm[Hg] [facility] Work Phone: [facility] 06-03-2023 11:58-0400 Heart rate 91 /min [facility] Work Phone: [facility] 06-03-2023 11:58-0400 Systolic blood pressure 145 mm[Hg] [facility] Work Phone: [facility] 05-31-2023 04:30-0400 Diastolic blood pressure 82 mm[Hg] [facility] Work Phone: [facility] 05-31-2023 04:30-0400 Heart rate 75 /min [facility] Work Phone: [facility] 05-31-2023 04:30-0400 Respiratory rate 20 /min [facility] Work Phone: [facility] 05-31-2023 04:30-0400 SaO2% (BldA) [Mass fraction] 98 % [facility] Work Phone: [facility] 05-31-2023 04:30-0400 Systolic blood pressure 150 mm[Hg] [facility] Work Phone: [facility] 05-30-2023 23:32-0400 Body height 176.53 cm [facility] Work Phone: [facility] 05-30-2023 23:32-0400 Body temperature 98.2 [degF] [facility] Work Phone: [facility] 05-30-2023 23:32-0400 Body weight 117.02 kg [facility] Work Phone: [facility] 04-18-2023 12:10-0400 Body temperature 98.2 [degF] [facility] Work Phone: [facility] 04-18-2023 12:10-0400 Diastolic blood pressure 91 mm[Hg] [facility] Work Phone: [facility] 04-18-2023 12:10-0400 Heart rate 86 /min [facility] Work Phone: [facility] 04-18-2023 12:10-0400 Respiratory rate 18 /min [facility] Work Phone: [facility] 04-18-2023 12:10-0400 SaO2% (BldA) [Mass fraction] 100 % [facility] Work Phone: [facility] 04-18-2023 12:10-0400 Systolic blood pressure 169 mm[Hg] [facility] Work Phone: [facility] 04-18-2023 12:06-0400 Body height 175.26 cm [facility] Work Phone: [facility] 04-18-2023 12:06-0400 Body weight 129.1 kg [facility] Work Phone: [facility] 01-19-2023 09:40-0500 Diastolic blood pressure 67 mm[Hg] [facility] Work Phone: [facility] 01-19-2023 09:40-0500 Heart rate 86 /min [facility] Work Phone: [facility] 01-19-2023 09:40-0500 Respiratory rate 20 /min [facility] Work Phone: [facility] 01-19-2023 09:40-0500 SaO2% (BldA) [Mass fraction] 100 % [facility] Work Phone: [facility] 01-19-2023 09:40-0500 Systolic blood pressure 145 mm[Hg] [facility] Work Phone: [facility] 01-19-2023 07:19-0500 Body height 175.26 cm [facility] Work Phone: [facility] 01-19-2023 07:19-0500 Body temperature 98 [degF] [facility] Work Phone: [facility] 01-19-2023 07:19-0500 Body weight 127.3 kg [facility] Work Phone: [facility] 01-08-2023 14:52-0500 Body height 176.53 cm [facility] Work Phone: [facility] 01-08-2023 14:52-0500 Body temperature 98.9 [degF] [facility] Work Phone: [facility] 01-08-2023 14:52-0500 Body weight 124.45 kg [facility] Work Phone: [facility] 01-08-2023 14:52-0500 Diastolic blood pressure 74 mm[Hg] [facility] Work Phone: [facility] 01-08-2023 14:52-0500 Heart rate 93 /min [facility] Work Phone: [facility] 01-08-2023 14:52-0500 Respiratory rate 20 /min [facility] Work Phone: [facility] 01-08-2023 14:52-0500 SaO2% (BldA) [Mass fraction] 98 % [facility] Work Phone: [facility] 01-08-2023 14:52-0500 Systolic blood pressure 143 mm[Hg] [facility] Work Phone: [facility] 01-04-2023 11:34-0500 Body height 175.26 cm [facility] Work Phone: [facility] 01-04-2023 11:34-0500 Body temperature 98.7 [degF] [facility] Work Phone: [facility] 01-04-2023 11:34-0500 Body weight 107.9 kg [facility] Work Phone: [facility] 01-04-2023 11:34-0500 Diastolic blood pressure 91 mm[Hg] [facility] Work Phone: [facility] 01-04-2023 11:34-0500 Heart rate 98 /min [facility] Work Phone: [facility] 01-04-2023 11:34-0500 Respiratory rate 18 /min [facility] Work Phone: [facility] 01-04-2023 11:34-0500 SaO2% (BldA) [Mass fraction] 100 % [facility] Work Phone: [facility] 01-04-2023 11:34-0500 Systolic blood pressure 165 mm[Hg] [facility] Work [facility]: [facility] 11-17-2022 02:32-0500 Diastolic blood pressure 98 mm[Hg] [facility] Work Phone: [facility] 11-17-2022 02:32-0500 Heart rate 92 /min [facility] Work Phone: [facility] 11-17-2022 02:32-0500 Respiratory rate 18 /min [facility] Work Phone: [facility] 11-17-2022 02:32-0500 SaO2% (BldA) [Mass fraction] 98 % [facility] Work Phone: [facility] 11-17-2022 02:32-0500 Systolic blood pressure 168 mm[Hg] [facility] Work Phone: [facility] 11-16-2022 23:12-0500 Body height 176.53 cm [facility] Work Phone: [facility] 11-16-2022 23:12-0500 Body weight 126.35 kg [facility] Work Phone: [facility] 11-16-2022 23:11-0500 Body temperature 98.1 [degF] [facility] Work Phone: [facility] 09-17-2022 23:07-0400 Body height 175.26 cm [facility] Work Phone: [facility] 09-17-2022 23:07-0400 Body temperature 98.2 [degF] [facility] Work Phone: [facility] 09-17-2022 23:07-0400 Body weight 124.25 kg [facility] Work Phone: [facility] 09-17-2022 23:07-0400 Diastolic blood pressure 70 mm[Hg] [facility] Work Phone: [facility] 09-17-2022 23:07-0400 Heart rate 75 /min [facility] Work Phone: [facility] 09-17-2022 23:07-0400 Respiratory rate 18 /min [facility] Work Phone: [facility] 09-17-2022 23:07-0400 SaO2% (BldA) [Mass fraction] 94 % Services [employer] [facility] Work Phone: [facility] 09-17-2022 23:07-0400 Systolic blood pressure 153 mm[Hg] Services [facility] Work Phone: [facility] 08-23-2022 07:17-0400 Body height 175.26 cm DO [facility]isci Work Phone: [facility] 08-23-2022 07:17-0400 Body temperature 98.2 [degF] DO Clyde Visci Work Phone: [facility] 08-23-2022 07:17-0400 Body weight 110.22 kg DO Clyde Visci Work Phone: [facility] 08-23-2022 07:17-0400 Diastolic blood pressure 75 mm[Hg] DO Clyde Visci Work Phone: [facility] 08-23-2022 07:17-0400 Heart rate 83 /min DO Clyde Visci Work Phone: [facility] 08-23-2022 07:17-0400 Respiratory rate 18 /min DO Clyde Visci Work Phone: [facility] 08-23-2022 07:17-0400 SaO2% (BldA) [Mass fraction] 100 % DO Clyde Visci Work Phone: [facility] 08-23-2022 07:17-0400 Systolic blood pressure 145 mm[Hg] DO Clyde Visci Work Phone: [facility] 07-13-2022 12:00-0400 Body height 175.26 cm Gabriel Olexa Other [facility] [employer] Other 07-13-2022 12:00-0400 Body mass index (BMI) [Ratio] 39.13 kg/m2 Gabriel Olexa Other [facility] [employer] Other 07-13-2022 12:00-0400 Body weight 120.2 kg Gabriel Olexa Other [facility] [employer] Other 07-06-2022 21:44-0400 Body height 176.53 cm DO Clyde Visci Work Phone: [facility] 07-06-2022 21:44-0400 Body weight 112.49 kg DO Clyde Visci Work Phone: [facility] 07-06-2022 21:43-0400 Body temperature 98.2 [degF] DO Clyde Visci Work Phone: [facility] 07-06-2022 21:43-0400 Diastolic blood pressure 72 mm[Hg] DO Clyde Visci Work Phone: [facility] 07-06-2022 21:43-0400 Heart rate 93 /min DO Clyde Visci Work Phone: [facility] 07-06-2022 21:43-0400 Respiratory rate 17 /min DO Clyde Visci Work Phone: [facility] 07-06-2022 21:43-0400 SaO2% (BldA) [Mass fraction] 100 % DO Clyde Aguilera Work Phone: [facility] 07-06-2022 21:43-0400 Systolic blood pressure 135 mm[Hg] DO Clyde Aguilera Work Phone: [facility] 2019 13:18-0500 BMI (Body Mass Index) 40.2 kg/m2 [facility] 2019 13:18-0500 Body Temperature 98.2 [degF] [facility] acute hospital [facility] 2019 13:18-0500 Body weight 127.3 kg [facility] 2019 13:18-0500 BP Diastolic 81 mm[Hg] [facility] 2019 13:18-0500 BP Systolic 143 mm[Hg] [facility] 2019 13:18-0500 Height 177.8 cm [facility] 2019 13:18-0500 Pulse (Heart Rate) 88 /min [facility] 2019 13:18-0500 Pulse Oximetry 99 % [facility] 2019 13:18-0500 Respiratory Rate 17 /min General acute hospital Medical Ctr Encounters Encounter Date Encounter Type Care Provider Facility Start: 03-08-2024 End: 03-08-2024 ambulatory Services [facility] Facility:[facility] Start: 03-08-2024 End: 03-08-2024 ambulatory Services [facility] Work Phone: [facility] Work Phone: Start: 03-08-2024 End: 03-08-2024 Patient encounter procedure Services [facility] Work Phone: [facility]-Ultrasound Cntr for Breast Car Start: 02-27-2024 End: 02-28-2024 ambulatory Alfie Dixon MD Facility: [facility] Start: 02-06-2024 End: 02-07-2024 ambulatory Alfie Dixon MD Facility:[facility] Start: 12-02-2023 End: 12-02-2023 ambulatory Services [facility] Facility:[facility] Start: 12-02-2023 End: 12-02-2023 ambulatory Services Family [facility] Work Phone: [facility] Work Phone: Start: 12-02-2023 End: 12-02-2023 Patient encounter procedure Services [facility] Work Phone: [facility]-Center for Breast Care Work Phone: Start: 10-07-2023 End: 10-07-2023 ambulatory Services [facility] Facility:[facility] Start: 10-07-2023 End: 10-07-2023 ambulatory Services Family [facility] Work Phone: [facility] Work Phone: Start: 10-07-2023 End: 10-07-2023 Patient encounter procedure Services [facility] Work Phone: [facility]-Lab [place] Work Phone: Start: 08-09-2023 End: 08-09-2023 ambulatory John Luu Facility:[facility] Start: 08-09-2023 End: 08-09-2023 ambulatory Services [facility] Work Phone: [facility] Work Phone: Start: 08-09-2023 End: 08-09-2023 Patient encounter procedure Services [facility] Work Phone: [facility]-Electrodiagnostics Work Phone: Start: 07-13-2023 End: 07-13-2023 ambulatory Marquise Disla Facility:[facility] Start: 07-13-2023 End: 07-13-2023 ambulatory Services [facility] Work Phone: [facility] Work Phone: Start: 07-13-2023 End: 07-13-2023 Patient encounter procedure Services [facility] Work Phone: [facility] [place] Work Phone: Start: 07-01-2023 End: 07-01-2023 Emergency department patient visit Agustin Sanrda Facility:[facility] Start: 07-01-2023 End: 07-01-2023 Emergency department patient visit Services [facility] Work Phone: [facility]-Emergency Room Work Phone: Start: 06-18-2023 End: 06-19-2023 Emergency department patient visit Services [facility] Facility:[facility] Start: 06-18-2023 End: 06-19-2023 Emergency department patient visit Services [facility] Work Phone: [facility]-Emergency Room Work Phone: Start: 06-14-2023 Office outpatient visit 15 minutes [facility] Start: 06-14-2023 End: 06-14-2023 ambulatory Services [facility] [employer] Other Start: 06-14-2023 End: 06-14-2023 Patient encounter procedure Services [facility] Work Phone: [facility]-X[facility] [place] [facility] Start: 06-03-[address] Marcos Gregory Facility:[id number] Start: 05-31-2023 End: 05-31-2023 Emergency department patient visit Leonel Guerra Facility:[facility] Start: 05-30-2023 End: 05-31-2023 Emergency department patient visit Services [facility] Work Phone: [facility]-Emergency Room Work Phone: Start: 05-12-2023 ambulatory ANGEL SWAIN . Facility:[facility] Start: 04-18-2023 End: 04-18-2023 Emergency department patient visit Agustin Jocy Facility:[facility] Start: 04-18-2023 End: 04-18-2023 Emergency department patient visit Services [facility] Work Phone: [facility]-Emergency Room Work Phone: Start: 02-10-2023 End: 02-11-[address] UZAIR LIGHT . Facility:[facility] Start: 01-19-2023 End: 01-19-2023 Emergency department patient visit Services [facility] Work Phone: [facility]Emergency Room Work Phone: Start: 01-08-2023 End: 01-08-2023 Emergency department patient visit Services [facility] Work Phone: [facility]-Emergency Room Work Phone: Start: 01-04-2023 End: 01-04-2023 Emergency department patient visit Services [facility] Work Phone: [facility]-Emergency Room Work Phone: Start: 11-16-2022 End: 11-17-2022 Emergency department patient visit Services [facility] Work Phone: [facility]-Emergency Room Start: 11-04-2022 End: 11-05-[address] UZAIR LIGHT . Facility:[facility] Start: 10-12-2022 End: 10-12-2022 Patient encounter procedure Services [facility] Work Phone: [facility] [place] [facility] Start: 09-17-2022 End: 09-18-2022 Emergency department patient visit Services [facility] Work Phone: [facility]-Emergency Room Start: 08-23-2022 End: 08-23-2022 Emergency department patient visit DO Clyde Yehi Work Phone: [facility]-Emergency Room Start: 08-18-2022 End: 08-18-2022 Patient encounter procedure DO Clyde Yehi Work Phone: [facility]-MRI [address] Start: 07-13-2022 End: 07-13-2022 ambulatory Gabriel Rosenberg Other [employer] Other Start: 07-13-2022 Office outpatient ne w 45 minutes [facility] Start: 07-08-2022 End: 07-09-[address] UZAIR LIGHT . Facility:[facility] Start: 07-06-2022 End: 07-06-2022 Emergency department patient visit DO Clyde Aguilera Work Phone: [facility]-Emergency Room Start: 04-15-2022 End: 04-16-[address] UZAIR LIGHT . Facility:[facility] Start: 03-30-2022 End: 03-30-[address] UZAIR LIGHT . Facility:[facility] Start: 01-08-2020 End: 01-08-2020 Patient encounter procedure Clyde Visci -Ultrasound [place] Start: 2019 End: 2019 Emergency department patient visit Clyde Visci -Emergency Room Start: 09-17-2019 End: 09-17-2019 Emergency department patient visit Clyde Visci -Emergency Room Start: 12-26-2018 End: 12-26-2018 Patient encounter procedure Clyde Visci -XRay [address] Start: 02-02-2005 Evaluation and management of inpatient Clyde Yehi -3 [facility] Post Procedures Date Procedure Procedure Detail Performing Clinician Start: 03-08-2024 Ultrasonography of b ilateral breasts Services [employer] [facility] Phone: Start: 12-02-2023 Screening mammograph y of bilateral breasts Services [employer] Phone: Start: 06-18-2023 CT of head without contrast Services [employer] [facility]) Phone: Start: 06-18-2023 Plain X-ray of left shoulder Services [employer] [facility]) Phone: Start: 06-14-2023 Plain X-ray of left wrist Services [employer] [facility] Phone: Start: 06-03-2023 Radionuclide myocard ial perfusion stress study Services [employer] [facility]) Phone: Start: 05-31-2023 Plain chest X-ray Servi rachel [employer] [facility]) Phone: Start: 04-18-2023 Plain X-ray of left wrist Services [employer] [facility] Phone: Start: 01-19-2023 Streptococcus pyogen es antigen assay Services [employer] Work Phone: Start: 01-08-2023 SARS-CoV-2, Influenz a & RSV (PCR) Services [employer] Work Phone: Start: 01-04-2023 Streptococcus pyogen es antigen assay Services [employer] Work Phone: Start: 11-17-2022 SARS-CoV-2, Influenz a & RSV (PCR) Services [employer] Work Phone: Start: 10-12-2022 X-ray of left ankle Ser vices [employer] Work Phone: Start: 08-18-2022 MRI of right knee DO Estrella Yehi Work Phone: Start: 07-06-2022 Plain X-ray of left wrist DO Clyde Yehi Work Phone: Start: 07-06-2022 X-ray of right knee DO Clyde Yehi Work Phone: Start: 01-08-2020 Duplex scan of lower limb veins [facility] [employer] Start: 2019 X-ray of left ankle Giovanni hard Visci H/O: section S/P DO Estrella Yehi Work Phone: SARS Antigen (LFIA) DO Karen fowler [employer] Work Phone: SARS-CoV-2, Influenz a & RSV (PCR) Services [employer] Work Phone: Plan of Treatment Date Care Activity Detail Author Start: 06-18-2023 CT of head without contrast CT head/ brain wo con [facility] Start: 06-18-2023 CT Unspecified body region WO contrast [facility] Start: 06-18-2023 Plain X-ray of left shoulder XR shoulder LT min 2V* [facility] Start: 06-18-2023 XR Shoulder - left Views [facility] Start: 05-31-2023 [facility] Start: 05-31-2023 Plain chest X-ray XR chest 2V* [facility] Start: 05-31-2023 XR Chest 2 Views [facility] Cardiovascular stres s testing [facility] Patient Education [facility] Patient referral [facility] Immunizations Immunization Date Immunization Notes Care Provider Zach cavazos 12-10-2018 tetanus toxoid, redu nissa diphtheria toxoid, and acellular pertussis vaccine, adsorbed Clyde Visci [facility] Payers Date Payer Category Payer Medicare 2023 Self-pay [id number] 2022 Medicaid [id number] 1978 Unknown [id number] 2.16.840.1.030555.3.579.2.5 93 1978 Unknown [id number] 2.16.840.1.176678.3.579.2.5 93 1978 Unknown [id number] 2.16.840.1.093813.3.579.2.5 93 1978 Unknown [id number] 2.16.840.1.758349.3.579.2.5 93 1978 Unknown [id number] 2.16.840.1.431281.3.579.2.5 93 1978 Unknown [id number] 2.16.840.1.175626.3.579.2.5 93 1978 Unknown [id number] 2.16.840.1.419074.3.579.2.3 56 1978 Unknown [id number] 2.16.840.1.619785.3.579.2.1 96 1978 Unknown [id number] 2.16.840.1.350707.3.579.2.1 96 1959 Medicare [id number] 1959 Unknown [id number] 2.16.840.1.943465.19 Private Health Insurance [id number] Unknown Self Pay [id number] Unknown Regular Auto/Liability [id number] Unknown [id number] 2.16.840.1.738848.3.579.2.5 31 Unknown [id number] 2.16.840.1.569797.3.579.2.5 31 Unknown [id number] 2.16.840.1.665586.3.579.2.5 31 Unknown [id number] 2.16.840.1.728198.3.579.2.5 31 Unknown [id number] 2.16.840.1.491631.3.579.2.5 31 Unknown [id number] 2.16.840.1.842689.3.579.2.5 31 Unknown [id number] 2.16.840.1.191446.3.579.2.5 31 Unknown [id number] 2.16.840.1.115622.3.579.2.5 31 Unknown [id number] 2.16.840.1.223882.3.579.2.5 31 Unknown [id number] 2.16.840.1.790631.3.579.2.5 31 Social History Date Type Detail Facility Start: 2019 End: 01-19-2023 Tobacco smoking status OKIS Ex-smoker (finding) [facility] Start: 1980 Sex Assigned At Female F [facility] Sex Assigned At Sex Assigned At [facility] [employer] Other Start: 07-06-2022 End: 07-01-2023 Tobacco smoking status OKIS Never smoked tobacco (finding) [facility] Goals Date Patient Goal Desired Activity [...] We also discussed a carpal tunnel release. [employer] Other 03-16-2023 NoteCONSULTATION CONSULTATION DATE: 02/10/2023 HISTORY: [...] in three months' time, unless otherwise indicated.[id number] Hospital Discharge instructions Additional Instructions Take the [...] fever difficulty breathing vomiting or any other [facility] Work Phone: [phone]) 989-515012-08-2022 NoteCONSULTATION CONSULTATION DATE: 11/04/2022 HISTORY OF PRESENT [...] 20-30 a week. Patient does work at [employer] and is on her foot a lot. [...] Patient agrees with the plan of care.[facility] [id number] Evaluation note* Encounter Date Diagnosis Assessment Notes [...] tolerated the injection well without adverse reaction. [employer] Other 08-11-2022 NoteCONSULTATION CONSULTATION DATE: 07/08/2022 HISTORY [...] pending appointment with Dr. Rosenberg, Orthopedic in [place] next week. 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 She is on her feet a lot and has recently experienced left lower extremity swelling. Overall, the patient felt that's some pressure has been released with this recent sympathetic block. Current medications include gabapentin 200 mg a.m., 200 mg noon and 400 mg at dusk, Percocet 5/325 t.i.d., Vistaril and a vitamin complex. The patient does continue to go to physical therapy at [facility] in [place]. Activities that aggravate her pain are standing, [...] of care and would like to proceed. [facility] Signed and Approved by: NICO GARCIAS . 04/19/2022 15:06:00[facility] noteNo assessment information availableCl[facility] Work Phone: History general Narrative - Reported* Type Description Date Medical History Rheumatoid arthritis Medical History carpal tunnel Medical History diabetes Medical History HTN Surgical History Bilateral feet surgery-heel spu rs Surgical History x 2 Surgical History gall bladder Surgical History tendon repair, nerve repair lef t lower extremity 2019 Surgical History left carpal tunnel release 2020 Hospitalization History see surgeries [employer] Other Hospital Discharge instructions Additional Instructions Tylenol every 4 hours as needed for pain Return if symptoms are worse Watch for signs of infection Follow-up with your nailbed salon and get the false nail removed tomorrow [facility] Work Phone: Hospital Discharge instructions Additional Instructions Follow-up with your primary care doctor Return [facility] ED if develop worsening [facility] Work Phone: Hospital Discharge instructions Additional Instructions I am not able to prescribe you any pain medication as you have a current prescription for Percocet.[facility] Work Phone: Advance Directives No [...] R55 i10 Chief Complaint ^ i10 Screening Chief Complaint ^ R92.8 Assessments No Assessments Information Available Family History No Family History Records Found Relationship Condition Age at Onset Recorded Date/T mendez Not Specified Myocardial infarction Unknown Diabetes mellitus Unknown father Cerebrovascular accident (CVA) Unknown Hypertension Unknown brother Diabetes mellitus Unknown Renal failure Unknown Relationship Condition Age at Onset Recorded Date/T mendez Not Specified Myocardial infarction Unknown Diabetes mellitus Unknown father Cerebrovascular accident (CVA) Unknown Hypertension Unknown brother Diabetes mellitus Unknown Renal failure Unknown father Diabetes mellitus Unknown Heart disease Unknown History of stroke Unknown Unknown Not Specified Heart disease Unknown Summary Purpose Additional Source Comments REASON FOR VISIT (unrecogniz ed section and content) [facility] [place] WRIST CYST RT KNE E PAIN WXLeft Wrist Pain, Right Carpal Tunnel SyndromeLeft Wrist Pain, Right Carpal Tunnel Syndrome Care Teams (unrecognized sec tion and content) Team Status: Active Member Role Status Dates Services [facility] Primary Care Provider Active Team Status: Active Member Role Status Breana Aguilera DO Attending Provider Active Team Status: Inactive Member Role Status [facility] Services [facility] Primary Care Provider Active Agustin Sandra APRN Emergency Provider Active Team Status: Inactive Member Role Status [facility] Services [facility] Primary Care Provider Active Leonel Guerra DO Emergency Provider Active Team Status: Inactive Member Role Status [facility] Services [facility] Primary Care Provider Active Marissa Elliott APRN Emergency Provider Active Team Status: Inactive Member Role Status [facility] Services [facility] Primary Care Provider Active Praveen Pearl DO Emergency Provider Active Team Status: Inactive Member Role Status [facility] Services [facility] Primary Care Provider Active Gabriel Rosenberg MD Attending Provider Active Team Status: Inactive Member Role Status [facility] Services [facility] Primary Care Provider Active Ayan Andrade MD Emergency Provider Active Team Status: Inactive Member Role Status [facility] Services Family [facility] Primary Care Provider Active Gabriel Breaux Jr, MD Emergency Provider Active Team Status: Inactive Member Role Status [facility] Services [facility] Primary Care Provider Active Abner Garcia DPM MS Attending Provider Active Team Status: Inactive Member Role Status [facility] Services [facility] Primary Care Provider Active MELISSA MylesP- Emergency Provider Active Team Status: Inactive Member Role Status [facility] Services [facility] Primary Care Provider Active Arnoldo Pérez DO Emergency Provider Active Team Status: Inactive Member Role Status [facility] Services [facility] Primary Care Provider Active Gabriel Breaux Jr, MD Emergency Provider Active Princess Guevara MD RES Active Team Status: Inactive Member Role Status [facility] Services Family [facility] Primary Care Provider Active Teo Heath DO Attending Provider Active Marquise Disla DO RES Other Provider Active Team Status: Inactive Member Role Status Dates Services [facility] Primary Care Provider Active Teo Heath , Attending Provider Active John Luu DO RES Referring Provider Active Team Status: Inactive Member Role Status Dates Services [facility] Primary Care Provider Active Referral Self Attending Provider Active Team Status: Active Member Role Status Dates Clyde Aguilera DO Attending Provider Active Sta rt: February 02, 2005 Team Status: Inactive Member Role Status Dates Services [facility] Primary Care Provider Active Start: March 08, 2024 End: March 08, 2024 John Luu , RES Attending Provider Active Start: March 08, 2024 End: March 08, 2024 Goals (unrecognized section and content) Goals may be documented in a n alternate section INFORMATION SOURCE (unrecogn ized section and content) DATE CREATED AUTHOR 02/19/2023 [facility] DATE CREATED AUTHOR AUTHOR'S ORGANIZ ATION 06/04/2023 [facility] DATE CREATED AUTHOR AUTHOR'S ORGANIZ ATION 03/06/2024 [facility] DATE CREATED AUTHOR AUTHOR'S ORGANIZ ATION 03/10/2024 [facility] FOR RECORDS PERTAINING TO PATIENTS WHO ARE [...] BE BASED ON THE PRIMARY CLINICAL RECORDS. [facility] [employer] provides no warranty or guarantee of the accuracy or completeness of information in this document.
[2024-03-12 08:44] LABS: HCG Qualitative NEGATIVE (NEGATIVE)
[2024-03-12 08:58] VITALS: BP 148/93; PULSE 89; TEMP 36.4; O2SAT 100
[2024-03-12 09:27] LABS: Glucometer 88 mg/dL (74-106)
[2024-03-12] MEDS: 0.9 % SODIUM CHLORIDE 500 ML 50 ML IV (09:29)
[2024-03-12] MEDS: 0.9 % SODIUM CHLORIDE 10 ML SYRINGE - SALINE FLUSH INJ (09:53)
[2024-03-12] MEDS: IOHEXOL 240 MG/ML - 10 ML VIAL INJ (09:55)
[2024-03-12] MEDS: TRIAMCINOLONE ACETONIDE 40 MG/ML VIAL INJ (09:56)
[2024-03-12] MEDS: BUPIVACAINE HCL 0.25% PF 25 MG/10 ML VIAL INJ (09:57)
--- NOTE | 2024-03-12 09:58 | W.PM.PROCNOT ---
Date of procedure: 03/12/24 Pre-op diagnosis: CRPS, LLE, type 1 Post-op diagnosis: same as pre-op Procedure: Procedure: Left lumbar sympathetic nerve block Medications: Bupivacaine 0.25% 4cc, normal saline 0.9% 4cc, kenalog 80mg The patient was seen and examined in the preoperative holding area.? Informed consent was obtained and placed on the chart.? Patient was brought to the medical procedure unit and placed in the prone position where a timeout was completed verifying the correct patient, procedure site, position, and planned special equipment using sterile aseptic technique.? Under direct fluoroscopic visualization a 25-gauge Quincke tipped spinal needle was advanced to the left anterolateral aspect of the L3 vertebral body where Omnipaque dye was injected to show adequate spread.? There was no evidence of vascular or neurologic uptake.? The above-mentioned injectate was then placed in five 2 mL aliquots preceded by negative aspiration. The needle was removed and the surgery site was covered. The same procedure, with the same steps, was then completed on the opposite side. Patient was taken to the postprocedural recovery area and monitored for an appropriate length of time before found suitable for discharge in the accompaniment of a responsible adult. Anesthesia: Moderate Sedation Surgeon: Alfie Dixon Pathology: none sent Condition: stable Disposition: no change
[2024-03-12] MEDS: LIDOCAINE HCL 2% PF 100 MG/5 ML VIAL INJ (10:00)
[2024-03-12 10:04] VITALS: BP 158/89; PULSE 90; TEMP 36.3; O2SAT 100
--- NOTE | 2024-03-12 10:11 | P.ON_ITS ---
Date of procedure: 03/26/24 Pre-op diagnosis: Left lower extremity CRPS, type I Post-op diagnosis: same as pre-op Procedure: Procedure: Left lumbar sympathetic nerve block The patient was seen and examined in the preoperative holding area.? Informed consent was obtained and placed on the chart.? Patient was brought to the medical procedure unit and placed in the prone position where a timeout was completed verifying the correct patient, procedure site, position, and planned s pecial equipment using sterile aseptic technique.? Under direct fluoroscopic visualization a 25-gauge Quincke tipped spinal needle was advanced to the left anterolateral aspect of the L3 vertebral body where Omnipaque dye was injected to show adequate spread.? There was no evidence of vascular or neurologic uptake.? The above-mentioned injectate was then placed in five 2 mL aliquots preceded by negative aspiration. The needle was removed and the surgery site was covered. The same procedure, with the same steps, was then completed on the opposite side. Patient was taken to the postprocedural recovery area and monitored for an appropriate length of time before found suitable for discharge in the accompaniment of a responsible adult. Anesthesia: MAC Surgeon: Alfie Dixon Pathology: none sent Condition: stable Disposition: no change
[2024-03-12] MEDS: SCOPOLAMINE 1 MG/3 DAYS TRANSDERM PATCH 1 PATCH TD (10:15)
[2024-03-12 10:19] VITALS: BP 149/90; PULSE 92; TEMP 36.3; O2SAT 96
== END 2024-03-12 10:23 | disposition home or self-care (01) ==
PROVIDERS: Visit Provider Anesthesiology
PROC: (CPT 1992; principal; 2024-03-12 09:30)
DX: G90.522 Complex regional pain syndrome I of left lower limb (principal)
CPT/HCPCS: 36415; 64520; 82948; 84703; J2704; Q9966

== ENCOUNTER 2024-03-22 12:31 | Outpatient (OUT) | payer MEDICARE, SELFPAY ==
--- NOTE | 2024-03-22 12:35 | PM.CN ---
Consult Note: HPI Data of Consult Patient: known to practice within the last 3 years Consult date: 02/06/24 Requesting Physician: Shonda Jeffery NP Primary Care Provider: [facility] Consult Narrative Reason for consult: left foot pain Narrative: 43yof who presents for assessment. she notes persistence of significant left lower extremity pain as a consequence of her 33 foot surgeries. states that she is trying to avoid any further surgeries, if at all possible. has now been able to work, but still has significant left foot pain. utilizes percocet and gabapentin, which provides some relief. has undergone a variety of phsyical therapy sessions, with minimal lasting benefit. denies adverse med side effects. recent left lumbar sympathetic block x2 resulted in 0% improvement. Patient has had nausea and dizziness since from IV sedation, but over the weekend developed vomiting and diarrhea. denies fevers chills. cc:: CC: Shonda Jeffery NP Review of Systems ROS Status of ROS 10 or more systems reviewed and unremarkable except as noted in history and below Ears, nose, mouth, and throat Reports: vertigo Gastrointestinal Reports: abdominal pain, nausea and vomiting Musculoskeletal Reports: extremity pain PFSH PFSH Medical History Anxiety ?F41.9 - Anxiety disorder, unspecified (ICD-10) Osteoarthritis ?M19.90 - Unspecified osteoarthritis, unspecified site (ICD-10) Low back pain ?M54.50 - Low back pain, unspecified (ICD-10) Anemia ?D64.9 - Anemia, unspecified (ICD-10) Obesity ?E66.9 - Obesity, unspecified (ICD-10) Acid reflux ?K21.9 - Gastro-esophageal reflux disease without esophagitis (ICD-10) Asthma ?J45.909 - Unspecified asthma, uncomplicated (ICD-10) Hypertension ?I10 - Essential (primary) hypertension (ICD-10) Surgical History H/O foot surgery ?Z98.890 - Other specified postprocedural states (ICD-10) H/O carpal tunnel repair ?Z98.890 - Other specified postprocedural states (ICD-10) History of delivery ?Z98.891 - History of uterine scar from previous surgery (ICD-10) Meds Home Medications and Allergies Home Medications ?Medication ?Instructions ?Recorded ?Confirmed ?Type ascorbic acid (vitamin C) 500 mg 500 mg PO BID 05/06/23 03/12/24 History tablet aspirin 325 mg tablet 325 mg PO DAILY 05/06/23 03/12/24 History ferrous sulfate 325 mg (65 mg 325 mg PO DAILY 05/06/23 03/12/24 History iron) tablet gabapentin 100 mg capsule 200 mg PO .every evening 05/06/23 03/12/24 History gabapentin 300 mg capsule 300 mg PO BID 05/06/23 03/12/24 History hydroxyzine pamoate 25 mg capsule 25 mg PO TID 05/06/23 03/12/24 History lidocaine 5 % topical kit 1 applic topical DAILY 05/06/23 03/12/24 History oxycodone-acetaminophen 5 mg-325 1 tab PO QID 05/06/23 03/12/24 History mg tablet (Percocet) promethazine 25 mg tablet 25 mg PO Q12H PRN nausea and 05/06/23 03/12/24 History vomiting pyridoxine (vitamin B6) 100 mg 100 mg PO BID 05/06/23 03/12/24 History tablet vitamin B complex (B 1 tab PO DAILY 05/06/23 03/12/24 History Complex-Vitamin B12 tablet) zinc sulfate 50 mg zinc (220 mg) 50 mg PO DAILY 05/06/23 03/12/24 History capsule oxycodone-acetaminophen 5 mg-325 1 tab PO QID PRN pain #120 tabs 03/22/24 Rx mg tablet (Percocet) Allergies Allergy/AdvReac Type Severity Reaction Status Date / Time naproxen [From Naprosyn] Allergy Mild Hives Verified 03/12/24 09:18 ondansetron [From Zofran] AdvReac Intermediate edema Verified 03/12/24 09:18 cyclobenzaprine AdvReac Mild Vomiting Verified 03/12/24 09:18 [From Flexeril] Exam Narrative Exam Narrative: Psych-alert and oriented x 3.? Attentive and appropriate, constitutionally normal, displays normal mood and affect per situation.? There are no obvious deficits in memory, reasoning, or intellect. Examination of the left lower extremity reveals notable hyperpathia and allodynia.? Notable atrophy and diffuse weakness present in the extremity.? There is notable shiny skin with hair loss and abnormal hair growth denoting trophic changes presently.? Asymmetric color and temperature changes are present which denotes sudomotor changes.? Decreased range of motion and strength is noted in the extremity.? Coordination remains intact.? Gait remains non-antalgic. Constitutional Documenting provider has reviewed patient's vital signs: yes Common normals: no apparent distress, oriented x3, healthy appearing, alert and well nourished General appearance: cooperative HENMT Common normals: normocephalic, hearing grossly normal bilaterally and moist oral mucous membranes Head and scalp: normocephalic Eye Common normals: PERRL Pupil: PERRL Neck & C-Spine Common normals: full ROM General: normal visual inspection Chest Common normals: inspection of chest normal Respiratory Common normals: normal respiratory effort, no retractions and no use of accessory muscles Neuro Common normals: oriented x3, CN's II-XII intact bilaterally, moves all extremities, no focal motor deficits, no sensory deficits noted and deep tendon reflexes 2+ bilaterally Sensorium/orientation: alert Motor exam: strength 5/5 throughout and no movement abnormalities noted Psych Common normals: mental status grossly normal, thought process normal, cooperative, affect normal, speech normal and activity/motor behavior normal Speech: normal speech Thought process: normal thought process Results Additional Findings Additional findings: If on a controlled substance or opioids, I have checked an [place] report on this patient and there are no aberrancies noted in the prescribing history.??If on a controlled substance or opioid a drug screen was completed and reviewed within the last year, and if there has not been a drug screen completed we ordered one today to monitor higher risk, state monitored pain medication use. As part of providing excellent, safe, comprehensive care, the following was completed at our patient's visit: 1. A medication reconciliation and review to ensure accurate knowledge of current/active medications, including asking our patients to inform us about any [id number] medications or herbal remedies/nutritional supplements/alternative remedies. 2. A review to specifically ensure our patients have had annual screening for screening for depression, screening for tobacco use, and screening for unhealthy alcohol use. For concerning screenings had a discussion with the patient, provided patient education, and recommended follow-up with primary care provider when appropriate. If patient noted with a risk of falling, they received education on strength, gait, and balance training to prevent future risk of falling. Assessment and Plan Assessment and Plan (1) Complex regional pain syndrome type 1 affecting left lower leg: (2) CRPS (complex regional pain syndrome): Qualifiers: Complex regional pain syndrome affected site: lower extremity Laterality: left (3) Nausea: (4) Vertigo: (5) Chronic prescription opiate use: Assessment and Plan: I feel these medications are improving the patient's quality of life and allow them to tolerate activities of daily living as well as participate in recreational activity.? The patient does not report intolerable side effects. The patient is NOT opioid naive and non-pharmacologic and non-opioid treatment has failed to significantly relieve the patient's pain and improve functionality. The patient has a diagnosis that is related to a somatic or visceral pain etiology. ? ?? I reviewed with the patient the potential risks and side effects with the use of? opioid medications including but not limited to respiratory depression,? sedation, and even . I verified the patient has access to naloxone should? these effects occur. I advised the patient to avoid the use of any other? sedation substances including alcohol, THC, and benzodiazepines while? taking opioid medications due to the risk of compounding side effects and? detrimental outcomes. I reviewed the RN HOME HEALTH, pain treatment agreement, urine? drug screen, and opioid start talking forms. The patient was advised to let? their family know they had Naloxone in case they would need to administer? the medication.? ?? A drug screen was completed within the last year, and no aberrancies were noted regarding their use of controlled substances. The patient understands they are subject to the terms and conditions of the pain contract that they have signed. ? ?? I have checked an [place] report on this patient today and there are no aberrancies noted in the prescribing history.? (6) Ankle pain, left: Qualifiers: Chronicity: chronic Qualified Code(s): M25.572 - Pain in left ankle and joints of left foot; G89.29 - Other chronic pain Plan continues to have dizziness lightheadedness nausea post operatively, however patient reports vomiting and diarrhea starting over the weekend. encouraged to f/u with PCP if vomiting/diarrhea persists, will prescribe scopalamine patch q3 days 2 patch supply as she found benefit after injections unforutnately with 0% improvement from left lumbar sympathetic nerve block x2 our next reasonable option is a spinal cord stimulator trial for CRPS of LLE, patient would like to think about and discuss with her . Education provided today, as well as a pamphlet with website for [employer], all questions answered continue medications, tolerating well without side effect request most recent bloodwork from PCP f/u 1 month
--- OUTSIDE RECORDS SUMMARY | 2024-03-22 12:52 | XMS_ITS | CCD ---
Author Organization [facility] Care Team Providers Care Digestion Operator Name Role Phone Clyde Aguilera Attending Provider Unavailable [facility] Services Primary Care Provider Un available Leonel Lucas Attending Provider Unavailable Gabriel Rosenberg Unavailable DO Clyde Aguilera Attending Provider [facility] Primary Care Provider LUIS Elliott Emergency Provider [phone] MD Gabriel Rosenberg Attending Provider DO Praveen Pearl Emergency Provider [phone] MD Ayan Andrade Emergency Provider DO Clyde Aguilera Attending Provider [phone] [facility] Primary Care Provider [phone] DO Praveen Pearl Emergency Provider MD Ayan Andrade Emergency Provider DIONNE Garcia Attending Provider [phone] MD Gabriel Breaux Jr Emergency Provider [facility] Primary Care Provider [phone] Kenneth MEDICAL SERVICE REPRESENTATIVE- Caitlyn Tuttle Emergency Provider [phone] [facility] Primary Care Provider DO Arnoldo Pérez Emergency Provider DR UZAIR CARTER Admitting Unavailable TERRENCE .DR UZAIR Attending Unavailable NICO GOMEZ Consulting Unavailable [facility] Primary Care Unavaila DR ARIADNA Hardin Consulting Unavailable LAKSHMIPATHY ., NARENDRANATH Admitting Katerine vailable LAKSHMIPATHY ., NARENDRANATH Attending Katerine vailable [facility] Primary Care Unavaila ble LIGHT ., DR UZAIR Matute Admitting Unavailable LIGHT ., DR UZAIR Matute Attending Unavailable MISC, DR JOEDA Primary Care Unavailable GARCIAS ., NICO Consulting [...] Matute Consulting Unavailable CARMEN CARPIO Consulting Unavailable [facility] Primary Care Provider LUIS Sandra Emergency Provider DO Leonel Guerra Emergency Provider Dr. Marcos Gregory Attending Unava ilable MD Gabriel Rosenberg Attending Provider MD Gabriel Breaux Jr Emergency Provider DO Teo Heath Attending Provider [phone] DO Marquise Disla Other Provider [facility] Primary Care Provider LUIS Sandra Emergency Provider [phone] DO John Luu Referring Provider [facility] Primary Care Provider DO Teo Heath Attending Provider Parentroxy, DO Camarillo Other Provider DO John Luu Referring Provider DO John Luu Referring Provider [facility] Primary Care Provider DO Teo Heath Attending Provider Self, Referral Attending Provider Unavailable [facility] Primary Care Provider DO John Luu Attending Provider [facility] Primary Care Unavaila John Hernandez Admitting Unavailable John Luu Attending Unavailable Marquise Disla Consulting Unavailable [facility], Services Primary Care Unavaila ble Teo Heath Admitting Unavailable Teo Heath Attending Unavailable [facility] Primary Care Unavaila ble Gabriel Rosenberg Admitting Unavailable Shakira, Gabriel Attending Unavailable Jocy, Agustin Admitting Unavailable Jocy, Agustin Attending Unavailable [facility] Services Primary Care Unavaila ble [facility] Primary Care Unavaila ble Gabriel Breaux Jr Admitting Unavailable Gabriel Breaux Jr Attending Unavailable Charlie Leonel Admitting Unavailable Leonel Guerra Attending Unavailable [facility], Services Primary Care Unavaila ble Jocy, Agustin Admitting Unavailable Jocy, Agustin Attending Unavailable [facility], Services Primary Care Unavaila ble [facility], Services Primary Care Unavaila ble Self, Referral Admitting Unavailable Self, Referral Attending Unavailable [facility], Services Primary Care Unavaila John Hernandez Referring Unavailable Teo Heath Admitting Unavailable Teo Heath Attending Unavailable John Luu Referring Unavailable [facility], Services Primary Care Unavaila ble Teo Heath Admitting Unavailable Teo Heath Attending Unavailable Gimarilynitis , Andrius Ch Attending Unavailable Gieditis , Andrius Vytautleola Attending Unavailable Giedraitis , Andrius Ch Attending Unavailable Unavailable Unavailable Unavailable Allergies Allergy Classification Reported Allergen(s) Allergy Type Date of Onset Reaction(s) Facility (16 sources) cyclobenzaprine ; Translations: [cyclobenzaprin e] Drug Allergy 2 Swelling of Lip/Tongue/Thro at [facility] (19 sources) Naproxen; Translations: [naproxen] Drug Allergy 2 Hives, Unknown [facility] (16 sources) Ondansetron; Translations: [ondansetron] Drug Allergy 2 Swelling of Lip/Tongue/Thro at [facility] (19 sources) Scallop - dietary; Translations: [scallops] Allergy to substance 2 [facility] (5 sources) cyclobenzaprine ; Translations: [Flexeril] Drug Allergy [address] [facility] (5 sources) Ondansetron; Translations: [Zofran] Drug Allergy [address] [facility] (2 sources) Naproxen Drug Allergy [address] [facility] (2 sources) Misc-Food; Translations: [Misc-Food] Food allergy (disorder) [address] [facility] Medications Current Medications Medication Drug Class(es) [...] by mouth three times daily Hydrocodone-Aceta minophen ([place]) 5-325 mg tablet Discontinued 1 TAB PO [...] mg/ml oral solution (10 sources) Phenothiazine, Uncompetitive O-luquyx-H-aspartate Receptor Antagonist, Sigma-1 Agonist Start: 01-08-2023 End: 06-19-2023 take 1 mL by mouth every six hours Promethazine-Dm Discontinued 10 ML PO Q6H 118 January 08, 2023 1:00am June 19, 2023 12:33am dicyclomine hydrochloride 20 mg oral tablet (14 sources) Anticholinergic Start: 01-25-2022 End: 06-19-2023 take 20 mg by mouth three times daily Dicyclomine Discontinued 20 MG PO Three times daily January 25, 2022 1:00am June 19, 2023 [...] 1:00am April 18, 2023 12:08pm Prenat 115-Iron Gnj-Rjjmn-Pjr ( 19 (With Docusate)) 29 mg iron- 1 mg-25 mg tablet (14 sources) Start: 04-21-2018 End: 04-22-2019 take 1 tablet by mouth once daily Prenat 115-Iron Pyd-Ybhju-Djt ( 19 (With Docusate)) 29 mg iron- 1 mg-25 mg tablet Discontinued 1 TAB PO Daily April 20, 2018 11:00pm April 22, 2019 9:17am Start: 04-21-2018 End: 04-22-2019 take 1 tablet by mouth once daily Prenat 115-Iron Wnp-Bxinm-Vci ( 19 (With Docusate)) 29 mg iron- [...] EVERY 4-6 HOURS 16 December 09, 2018 1:00am April 22, 2019 [...] in pelvis; Translations: [Pelvic and perineal pain] 12-07-2017 Episodic Anxiety disorders (7 sources) Anxiety attack [...] BI limited 03-08 US breast BI limited [facility] [place] [address] Ultrasound Report Signed Patient: Loy Tam MR#: [id number] : 1980 Acct:[id number] Age/Sex: 43 / F ADM Date: 03/08/24 Loc: [facility]: [facility] Attending Dr: John Luu DO, Resident Ordering [...] compressed mammographic views. Impression dictated by: Alan Mtata M.D.03/08/2024 3:19 PM Dictation Location: [facility] Tech: Dana Paredes Transcribed By: ILIA 03/08/24 1519 Dictated By: Alan Matta II, MD 03/08/24 151 Signed By: 03/08/24 1519 Normal [facility] MM screening mammo BI w/CADo n 12-02-2023 MM screening mammo BI w/CAD [facility] Main [place] [address] [place] [address] Mammography Report Signed Patient: Loy Tam MR#: [id number] : 1980 Acct:[id number] Age/Sex: 42 / F ADM Date: 12/02/23 Loc: ID Room: Type: [facility] Attending Dr: Referral Self Copies to: [facility] SELF,REFERRAL Ordering Provider: SELF,REFERRAL Date of [...] Sarah Mistry M.D.12/02/2023 3:31 PM Dictation Location: [facility] Transcribed By: ILIA 12/02/23 1531 Dictated By: Sarah Mistry MD 12/02/23 1523 Signed By: 12/02/23 1531 Normal [facility] FE PROon 10-07-2023 % Iron Saturation 12.3 % Low 20-50 [facility] Comment on above: Performed By: #### F E PRO, TSH3 #### [place] [id number] [place] Ferritin [Mass/Vol] 23.1 ng/mL Normal 11.0-306.8 [facility] Comment on above: Performed By: #### F E PRO, TSH3 #### [facility] [address] [place] [id number] [place] Iron [Mass/Vol] 48 ug/dL Low 50-212 [facility] Comment on above: Performed By: #### F E PRO, TSH3 #### [facility] [address] [place] [address] [place] Total Iron Binding Capacity 389 ug/dL Normal 255-450 [facility] Comment on above: Performed By: #### F E PRO, TSH3 #### [facility] [address] [place] [address] [place] Transferrin [Mass/Vol] 278 mg/dL Normal 203-362 [facility] Comment on above: Performed By: #### F E PRO, TSH3 #### [facility] [address] Ferritin [Mass/volume] in Se rum or PlasmaOrdered By: Teo Heath on 10-07-2023 Ferritin [Mass/Vol] 23.1 ng/mL 11.0-306.8 [facility] Iron [Mass/volume] in Serum or PlasmaOrdered By: Teo Heath on 10-07-2023 Iron [Mass/Vol] 48 ug/dL 50-212 [facility] Iron binding capacity [Mass/ volume] in Serum or PlasmaOrdered By: Teo Heath on 10-07-2023 Iron binding capacity [Mass/Vol] 389 ug/dL 255-450 [facility] Iron saturation [Mass Fracti on] in Serum or PlasmaOrdered By: Teo Heath on 10-07-2023 Iron saturation [Mass fraction] 12.3 % 20-50 [facility] Thyroid Stimulating Hormoneo n 10-07-2023 TSH Qn 0.91 m[IU]/L Normal 0.45-5.33 [facility] Comment on above: Result Comment: PERF ORMED BY: [facility] [address] [place] [address] PATHOLOGIST [employer] SUPERVISOR MARTY SALGADO M.D. Performed By: #### F E PRO, TSH3 ####[facility] [id number] Thyrotropin [Units/volume] i n Serum or PlasmaOrdered By: Teo Heath on 10-07-2023 TSH Qn 0.91 m[IU]/L 0.45-5.33 [facility] Transferrin [Mass/volume] in Serum or PlasmaOrdered By: Teo Heath on 10-07-2023 Transferrin [Mass/Vol] 278 mg/dL 203-362 [facility] Alanine aminotransferase [En zymatic activity/volume] in Serum or PlasmaOrdered By: Marquise Disla on 07-13-2023 ALT [Catalytic activity/Vol] 25 U/L 7-52 [facility] Albumin [Mass/volume] in Ser um or Plasma by Bromocresol green (BCG) dye binding methoOrdered By: Marquise Disla on 07-13-2023 Albumin BCG dye [Mass/Vol] 4.2 g/dL 3.5-5.7 [facility] Alkaline phosphatase [Enzyma tic activity/volume] in Serum or PlasmaOrdered By: Marquise Disla on 07-13-2023 ALP [Catalytic activity/Vol] 113 U/L 34-104 [facility] Aspartate aminotransferase [ Enzymatic activity/volume] in Serum or PlasmaOrdered By: Marquise Disla on 07-13-2023 AST [Catalytic activity/Vol] 13 U/L 13-39 [facility] Basophils Auto (Bld) [#/Vol] Ordered By: Marquise Disla on 07-13-2023 Basophils (Bld) [#/Vol] 0.1 10*3/uL 0.0-0.2 [facility] Basophils/100 WBC Auto (Bld) Ordered By: Marquise Disla on 07-13-2023 Basophils/100 WBC (Bld) 1.2 % . [facility] Bilirubin.total [Mass/volume ] in Serum or PlasmaOrdered By: Marquise Disla on 07-13-2023 Bilirubin [Mass/Vol] 0.6 mg/dL 0.3-1.0 [facility] Calcium [Mass/volume] in Ser um or PlasmaOrdered By: Marquise Disla on 07-13-2023 Calcium [Mass/Vol] 9.6 mg/dL 8.6-10.3 [facility] Carbon dioxide, total [Moles /volume] in Serum or PlasmaOrdered By: Marquise Disla on 07-13-2023 CO2 [Moles/Vol] 27.9 mmol/L 21.0-31.0 [facility] Chloride [Moles/volume] in S brian or PlasmaOrdered By: Marquise Disla on 07-13-2023 Chloride [Moles/Vol] 106 mmol/L 98-107 [facility] Cholesterol [Mass/volume] in Serum or PlasmaOrdered By: Marquise Disla on 07-13-2023 Cholesterol [Mass/Vol] 208 mg/dL 140-200 [facility] Comment on above: Chol less than 200 m g/dl low riskChol 201-239 mg/dl borderline riskChol 240 mg/dl and greater high risk Cholesterol in LDL Calc [Mas s/Vol]Ordered By: Marquise Disla on 07-13-2023 Cholesterol in LDL [Mass/Vol] 150 mg/dL 0-100 [facility] Comment on above: LDL ATP III CLASSIFI CATIONLDL less than 100 mg/dL OptimalLDL 100-129 mg/dL Near or above optimalLDL 130-159 mg/dL Borderline highLDL 160-189 mg/dL HighLDL greater than 189 mg/dL Very high Cholesterol in LDL [Mass/vol ume] in Serum or PlasmaOrdered By: Marquise Disla on 07-13-2023 Cholesterol in LDL [Mass/Vol] 171 mg/dL 0-100 [facility] Comment on above: LDL ATP III CLASSIFI CATIONLDL less than 100 mg/dL OptimalLDL 100-129 mg/dL Near or above optimalLDL 130-159 mg/dL Borderline highLDL 160-189 mg/dL HighLDL greater than 189 mg/dL Very high Cholesterol in VLDL Calc [Ma ss/Vol]Ordered By: Marquise Disla on 07-13-2023 Cholesterol in VLDL [Mass/Vol] 17 mg/dL [facility] Complete Blood Count Auto Di ffon 07-13-2023 Basophils (Bld) [#/Vol] 0.1 10*3/uL Normal 0.0-0.2 [facility] Comment on above: Result Comment: PERF ORMED BY: [facility] [address] [place] [address] PATHOLOGIST [employer]UM[employer] SUPERVISOR MARTY SALGADO M.D. Performed By: #### B 12, LIPID, CMP, CBC, LDLD ####[facility] [place] [id number] [facility] Basophils/100 WBC (Bld) 1.2 % Normal . T he [facility] Comment on above: Performed By: #### B 12, LIPID, CMP, CBC, LDLD ####[facility] [place] [id number] [facility] Eosinophils (Bld) [#/Vol] 0.3 10*3/uL Normal 0.0-0.45 [facility] Comment on above: Performed By: #### B 12, LIPID, CMP, CBC, LDLD ####[address] Eosinophils/100 WBC (Bld) 3.3 % Normal . [facility] Comment on above: Performed By: #### B 12, LIPID, CMP, CBC, LDLD ####[address] Erythrocyte distribution width (RBC) [Ratio] 16.1 % High 11.9-15.3 [facility] Comment on above: Performed By: #### B 12, LIPID, CMP, CBC, LDLD ####[address] Hematocrit (Bld) [Volume fraction] 39.7 % Normal 34.0-46.4 [facility] Comment on above: Performed By: #### B 12, LIPID, CMP, CBC, LDLD ####[address] Hemoglobin (Bld) [Mass/Vol] 12.8 g/dL Normal 11.8-15.4 [facility] Comment on above: Performed By: #### B 12, LIPID, CMP, CBC, LDLD ####[address] Lymphocytes (Bld) [#/Vol] 3.2 10*3/uL Normal 1.00-4.8 [facility] Comment on above: Performed By: #### B 12, LIPID, CMP, CBC, LDLD ####[address] Lymphocytes/100 WBC (Bld) 31.0 % Normal . [facility] Comment on above: Performed By: #### B 12, LIPID, CMP, CBC, LDLD ####[address] MCH (RBC) [Entitic mass] 23.1 pg Low 24.7-34.3 [facility] Comment on above: Performed By: #### B 12, LIPID, CMP, CBC, LDLD ####[place] [address] MCV (RBC) [Entitic vol] 71.6 fL Low 80-100 [facility] Comment on above: Performed By: #### B 12, LIPID, CMP, CBC, LDLD ####[address] Mean Corpuscular HGB Conc 32.2 g/dL Normal 32.0-35.0 [facility] Comment on above: Performed By: #### B 12, LIPID, CMP, CBC, LDLD ####[address] Monocytes (Bld) [#/Vol] 0.7 10*3/uL Normal 0.0-0.8 [facility] Comment on above: Performed By: #### B 12, LIPID, CMP, CBC, LDLD ####[address] Monocytes/100 WBC (Bld) 6.5 % Normal . [facility] Comment on above: Performed By: #### B 12, LIPID, CMP, CBC, LDLD ####[address] Neutrophils (Bld) [#/Vol] 6.0 10*3/uL Normal 1.8-7.7 [facility] Comment on above: Performed By: #### B 12, LIPID, CMP, CBC, LDLD ####[address] Neutrophils/100 WBC (Bld) 58.0 % Normal . [facility] Comment on above: Performed By: #### B 12, LIPID, CMP, CBC, LDLD ####[address] NRBC% 0.2 /100{WBC} Normal 0-0.5 [facility] Comment on above: Performed By: #### B 12, LIPID, CMP, CBC, LDLD ####[address] Platelet mean volume (Bld) [Entitic vol] 7.2 fL Normal 6.3-10.7 [facility] Comment on above: Performed By: #### B 12, LIPID, CMP, CBC, LDLD ####[address] Platelets (Bld) [#/Vol] 394 10*3/uL Normal 150-450 [facility] Comment on above: Performed By: #### B 12, LIPID, CMP, CBC, LDLD ####[address] RBC (Bld) [#/Vol] 5.55 10*6/uL High 3.60-5.00 [facility] Comment on above: Performed By: #### B 12, LIPID, CMP, CBC, LDLD ####[address] WBC (Bld) [#/Vol] 10.3 10*3/uL Normal 3.8-11.6 [facility] Comment on above: Performed By: #### B 12, LIPID, CMP, CBC, LDLD ####[address] Comprehensive Metabolic Pane susan 07-13-2023 Albumin [Mass/Vol] 4.2 g/dL Normal 3.5-5.7 [facility] Comment on above: Performed By: #### B 12, LIPID, CMP, CBC, LDLD ####[address] Albumin/Globulin [Mass ratio] 1.2 {ratio} Normal [facility] Comment on above: Performed By: #### B 12, LIPID, CMP, CBC, LDLD ####[address] ALP [Catalytic activity/Vol] 113 U/L High 34-104 [facility] Comment on above: Performed By: #### B 12, LIPID, CMP, CBC, LDLD ####[address] ALT [Catalytic activity/Vol] 25 U/L Normal 7-52 [facility] Comment on above: Performed By: #### B 12, LIPID, CMP, CBC, LDLD ####[address] Anion gap [Moles/Vol] 11.4 mmol/L Normal 6.0-15.0 Th e [facility] Comment on above: Performed By: #### B 12, LIPID, CMP, CBC, LDLD ####[address] AST [Catalytic activity/Vol] 13 U/L Normal 13-39 [facility] Comment on above: Performed By: #### B 12, LIPID, CMP, CBC, LDLD ####[address] Bilirubin [Mass/Vol] 0.6 mg/dL Normal 0.3-1.0 [facility] Comment on above: Performed By: #### B 12, LIPID, CMP, CBC, LDLD ####[address] Calcium [Mass/Vol] 9.6 mg/dL Normal 8.6-10.3 [facility] Comment on above: Performed By: #### B 12, LIPID, CMP, CBC, LDLD ####[address] Chloride [Moles/Vol] 106 mmol/L Normal 98-107 [facility] Comment on above: Performed By: #### B 12, LIPID, CMP, CBC, LDLD ####[address] CO2 [Moles/Vol] 27.9 mmol/L Normal 21.0-31.0 [facility] Comment on above: Performed By: #### B 12, LIPID, CMP, CBC, LDLD ####[address] Creatinine [Mass/Vol] 0.69 mg/dL Normal 0.60-1.20 [facility] Comment on above: Performed By: #### B 12, LIPID, CMP, CBC, LDLD ####[place] [id number] [address] GFR/1.73 sq M.predicted MDRD (S/P/Bld) [Vol rate/Area] mL/min/{1.73_m2} Normal [facility] Comment on above: Performed By: #### B 12, LIPID, CMP, CBC, LDLD ####[address] Globulin (S) [Mass/Vol] 3.4 g/dL Normal T he [facility] Comment on above: Performed By: #### B 12, LIPID, CMP, CBC, LDLD ####[place] [id number] [address] Glucose [Mass/Vol] 87 mg/dL Normal 70-100 [facility] Comment on above: Result Comment: [place] Glucose Reference Range is dependent on time and content of last meal. Glucose of more than 200 mg/dL in a nonstressed, ambulatory subject supports the diagnosis of Diabetes Mellitus. ADA recommended reference range Performed By: #### B 12, LIPID, CMP, CBC, LDLD ####[address] Potassium [Moles/Vol] 4.3 mmol/L Normal 3.5-5.1 [facility] Comment on above: Performed By: #### B 12, LIPID, CMP, CBC, LDLD ####[address] Protein [Mass/Vol] 7.6 g/dL Normal 6.4-8.9 [facility] Comment on above: Performed By: #### B 12, LIPID, CMP, CBC, LDLD ####[address] Sodium [Moles/Vol] 141 mmol/L Normal 136-145 [facility] Comment on above: Performed By: #### B 12, LIPID, CMP, CBC, LDLD ####[address] Urea nitrogen [Mass/Vol] 10 mg/dL Normal 7-25 [facility] Comment on above: Performed By: #### B 12, LIPID, CMP, CBC, LDLD ####[facility] [id number] [place] [address] [facility] Creatinine [Mass/volume] in Serum or PlasmaOrdered By: Marquise Disla on 07-13-2023 Creatinine [Mass/Vol] 0.69 mg/dL 0.60-1.20 [facility] Eosinophils Auto (Bld) [#/Vo l]Ordered By: Marquise Disla on 07-13-2023 Eosinophils (Bld) [#/Vol] 0.3 10*3/uL 0.0-0.45 [facility] Eosinophils/100 WBC Auto (Bl d)Ordered By: Marquise Disla on 07-13-2023 Eosinophils/100 WBC (Bld) 3.3 % . [facility] Erythrocyte distribution wid th Auto (RBC) [Ratio]Ordered By: Marquise Disla on 07-13-2023 Erythrocyte distribution width (RBC) [Ratio] 16.1 % 11.9-15.3 [facility] Globulin Calc (S) [Mass/Vol] Ordered By: Marquise Disla on 07-13-2023 Globulin (S) [Mass/Vol] 3.4 g/dL [facility] Glucose [Mass/volume] in Ser um or PlasmaOrdered By: Marquise Disla on 07-13-2023 Glucose [Mass/Vol] 87 mg/dL 70-100 [facility] Comment on above: ADA recommended refe rence rangeRandom Glucose Reference Range is dependent on time and content of last meal. Glucose of more than 200 mg/dL in a nonstressed, ambulatory subject supports the diagnosis of Diabetes Mellitus. Hematocrit Auto (Bld) [Volum e fraction]Ordered By: Marquise Disla on 07-13-2023 Hematocrit (Bld) [Volume fraction] 39.7 % 34.0-46.4 [facility] Hemoglobin [Mass/volume] in BloodOrdered By: Marquise Disla on 07-13-2023 Hemoglobin (Bld) [Mass/Vol] 12.8 g/dL 11.8-15.4 [facility] LDL Cholesterol Measuredon 0 8-16-2023 LDL Cholesterol Measured 171 mg/dL High 0-100 [facility] Comment on above: Result Comment: LDL ATP III CLASSIFICATION LDL less than 100 mg/dL Optimal LDL 100-129 mg/dL Near or above optimal LDL 130-159 mg/dL Borderline high LDL 160-189 mg/dL High LDL greater than 189 mg/dL Very high Performed By: #### B 12, LIPID, CMP, CBC, LDLD ####[place] [id number] [place] [id number] [facility] Leukocytes [#/volume] correc abdias for nucleated erythrocytes in Blood by Automated counOrdered By: Marquise Disla on 07-13-2023 WBC corrected for nucl RBC Auto (Bld) [#/Vol] 10.3 10*3/uL 3.8-11.6 [facility] Lipid Panelon 07-13-2023 Cholesterol [Mass/Vol] 208 mg/dL High 140-200 [facility] e [facility] Comment on above: Result Comment: Chol less than 200 mg/dl low risk Chol 201-239 mg/dl borderline risk Chol 240 mg/dl and greater high risk Performed By: #### B 12, LIPID, CMP, CBC, LDLD ####[place] [id number] [address] Cholesterol in HDL [Mass/Vol] 40 mg/dL Normal 23-92 [facility] Comment on above: Result Comment: HDL CHOL ATP-III CLASSIFICATION Cardiovascular Risk HDL > or equal to 60 mg/dL LOW HDL < 40 mg/dL HIGH Performed By: #### B 12, LIPID, CMP, CBC, LDLD ####[place] [address] [place] [id number] [facility] Cholesterol.total/Candy sterol in HDL [Mass ratio] 5.2 {ratio} Normal <5.0 [facility] Comment on above: Performed By: #### B 12, LIPID, CMP, CBC, LDLD ####[place] [address] [place] [id number] [facility] LDL Cholesterol,Calculated 150 mg/dL High 0-100 [facility] Comment on above: Result Comment: LDL ATP III CLASSIFICATION LDL less than 100 mg/dL Optimal LDL 100-129 mg/dL Near or above optimal LDL 130-159 mg/dL Borderline high LDL 160-189 mg/dL High LDL greater than 189 mg/dL Very high Performed By: #### B 12, LIPID, CMP, CBC, LDLD ####[facility] [id number] Triglyceride w/Reflex 88 mg/dL Normal 0-149 [facility] Comment on above: Result Comment: TRIG ATP III CLASSIFICATION TRIG less than 150 mg/dL Normal TRIG 150-199 mg/dL Borderline high TRIG 200-500 mg/dL High TRIG greater than 500 mg/dL Very high Standard traceable to the Center for Disease Conrtrol and Prevention (CDC) test method. Performed By: #### B 12, LIPID, CMP, CBC, LDLD ####[facility] VLDL CHOLESTEROL 17 mg/dL Normal [facility] Comment on above: Performed By: #### B 12, LIPID, CMP, CBC, LDLD ####[facility] [id number] Lymphocytes Auto (Bld) [#/Vo l]Ordered By: Marquise Disla on 07-13-2023 Lymphocytes (Bld) [#/Vol] 3.2 10*3/uL 1.00-4.8 [facility] Lymphocytes/100 WBC Auto (Bl d)Ordered By: Marquise Disla on 07-13-2023 Lymphocytes/100 WBC (Bld) 31.0 % . [facility] MCH Auto (RBC) [Entitic mass ]Ordered By: Marquise Disla on 07-13-2023 MCH (RBC) [Entitic mass] 23.1 pg 24.7-34.3 [facility] MCHC Auto (RBC) [Mass/Vol]Or dered By: Marquise Disla on 07-13-2023 MCHC (RBC) [Mass/Vol] 32.2 g/dL 32.0-35.0 [facility] MCV Auto (RBC) [Entitic vol] Ordered By: Marquise Disla on 07-13-2023 MCV (RBC) [Entitic vol] 71.6 fL 80-100 [facility] Monocytes Auto (Bld) [#/Vol] Ordered By: Marquise Disla on 07-13-2023 Monocytes (Bld) [#/Vol] 0.7 10*3/uL 0.0-0.8 [facility] Monocytes/100 WBC Auto (Bld) Ordered By: Marquise Disla on 07-13-2023 Monocytes/100 WBC (Bld) 6.5 % . [facility] Neutrophils Auto (Bld) [#/Vo l]Ordered By: Marquise Disla on 07-13-2023 Neutrophils (Bld) [#/Vol] 6.0 10*3/uL 1.8-7.7 [facility] Neutrophils/100 WBC Auto (Bl d)Ordered By: Marquise Disla on 07-13-2023 Neutrophils/100 WBC (Bld) 58.0 % . [facility] No Panel InformationOrdered By: Marquise Disla on 07-13-2023 Estimated GFR (CKD-EPI) > 60.0 mL/Min [facility] Creatinine Clearance (Chem N/A [facility] Nucleated erythrocytes [Pres ence] in Blood by Automated countOrdered By: Marquise Disla on 07-13-2023 Nucleated RBC Auto Ql (Bld) 0.2 /100{WBC} 0-0.5 [facility] Platelet mean volume Auto (B ld) [Entitic vol]Ordered By: Marquise Disla on 07-13-2023 Platelet mean volume (Bld) [Entitic vol] 7.2 fL 6.3-10.7 [facility] Platelets Auto (Bld) [#/Vol] Ordered By: Marquise Disla on 07-13-2023 Platelets (Bld) [#/Vol] 394 10*3/uL 150-450 [facility] Potassium [Moles/volume] in Serum or PlasmaOrdered By: Marquise Disla on 07-13-2023 Potassium [Moles/Vol] 4.3 mmol/L 3.5-5.1 [facility] Protein [Mass/volume] in Ser um or PlasmaOrdered By: Marquise Disla on 07-13-2023 Protein [Mass/Vol] 7.6 g/dL 6.4-8.9 [facility] RBC Auto (Bld) [#/Vol]Ordere d By: Marquise Disla on 07-13-2023 RBC (Bld) [#/Vol] 5.55 10*6/uL 3.60-5.00 [facility] Serum or plasma albumin/glob ulin mass ratioOrdered By: Marquise Disla on 07-13-2023 Albumin/Globulin [Mass ratio] 1.2 {ratio} [facility] Serum or plasma anion gap de terminationOrdered By: Marquise Disla on 07-13-2023 Anion gap [Moles/Vol] 11.4 mmol/L 6.0-15.0 [facility] Serum or plasma high density lipoprotein (HDL) cholesterol measurementOrdered By: Marquise Disla on 07-13-2023 Cholesterol in HDL [Mass/Vol] 40 mg/dL 23-92 [facility] Comment on above: HDL CHOL ATP-III CLA SSIFICATION Cardiovascular RiskHDL > or equal to 60 mg/dL LOWHDL < 40 mg/dL HIGH Serum or plasma total choles terol/high density lipoprotein (HDL) cholesterol mass ratOrdered By: Marquise Disla on 07-13-2023 Cholesterol.total/Candy sterol in HDL [Mass ratio] 5.2 {ratio} <5.0 [facility] Sodium [Moles/volume] in Ser um or PlasmaOrdered By: Marquise Disla on 07-13-2023 Sodium [Moles/Vol] 141 mmol/L 136-145 [facility] Triglyceride [Mass/volume] i n Serum or PlasmaOrdered By: Marquise Disla on 07-13-2023 Triglyceride [Mass/Vol] 88 mg/dL 0-149 [facility] Comment on above: TRIG ATP III CLASSIF ICATIONTRIG less than 150 mg/dL NormalTRIG 150-199 mg/dL Borderline highTRIG 200-500 mg/dL High TRIG greater than 500 mg/dL Very highStandard traceable to the Center for Disease Conrtrol and Prevention (CDC) test method. Urea nitrogen [Mass/volume] in Serum or PlasmaOrdered By: Marquise Disla on 07-13-2023 Urea nitrogen [Mass/Vol] 10 mg/dL 7-25 [facility] Vitamin B12on 07-13-2023 Cobalamin (Vitamin B12) [Mass/Vol] 324 pg/mL Normal 180-914 [facility] Comment on above: Result Comment: PERF ORMED BY: [facility] [address] [place] [place] [id number] PATHOLOGIST [employer] MARTY SALGADO M.D. Performed By: #### B 12, LIPID, CMP, CBC, LDLD ####[place] [address] [place] [address] [facility] Vitamin B12 ser/plasOrdered By: Marquise Disla on 07-13-2023 Cobalamin (Vitamin B12) [Mass/Vol] 324 pg/mL 180-914 [facility] WBC Auto (Bld) [#/Vol]Ordere d By: Marquise Disla on 07-13-2023 WBC (Bld) [#/Vol] 10.3 10*3/uL 3.8-11.6 [facility] Automated erythrocytes count in urine sediment (number/area)Ordered By: Agustin Sandra on 07-01-2023 RBC Auto (Urine sed) [#/Area] 5-9 [HPF] 0-4 [facility] Automated leukocytes count i n urine sediment (number/area)Ordered By: Agustin Sandra on 07-01-2023 WBC Auto (Urine sed) [#/Area] 0-1 [HPF] 0-4 [facility] Basic Metabolic Panelon Anion gap [Moles/Vol] 11.0 mmol/L Normal 6.0-15.0 [facility] Comment on above: Performed By: #### C BC, BMP ####[place] [address] [place] [address] [facility] Calcium [Mass/Vol] 9.3 mg/dL Normal 8.6-10.3 [facility] Comment on above: Performed By: #### C BC, BMP ####[facility] [place] [id number] [facility] Chloride [Moles/Vol] 104 mmol/L Normal 98-107 [facility] Comment on above: Performed By: #### C BC, BMP ####[place] [address] [place] [id number] [facility] CO2 [Moles/Vol] 27.9 mmol/L Normal 21.0-31.0 [facility] Comment on above: Performed By: #### C BC, BMP ####[place] [address] [place] [id number] [facility] Creatinine [Mass/Vol] 0.79 mg/dL Normal 0.60-1.20 [facility] Comment on above: Performed By: #### C BC, BMP ####[place] [address] [place] [address] [place] Creatinine Clr Calc Pharmacy 127.26 Normal [facility] Comment on above: Result Comment: PERF ORMED BY: [facility] [address] [place] [address] PATHOLOGIST [employer] MARTY SALGADO M.D. Performed By: #### C BC, BMP ####[address] GFR/1.73 sq M.predicted MDRD (S/P/Bld) [Vol rate/Area] mL/min/{1.73_m2} Normal [facility] Comment on above: Performed By: #### C BC, BMP ####[place] [id number] [facility] Glucose [Mass/Vol] 92 mg/dL Normal 70-100 [facility] Comment on above: Result Comment: [place] Glucose Reference Range is dependent on time and content of last meal. Glucose of more than 200 mg/dL in a nonstressed, ambulatory subject supports the diagnosis of Diabetes Mellitus. ADA recommended reference range Performed By: #### C BC, BMP ####[place] [id number] [facility] Potassium [Moles/Vol] 3.9 mmol/L Normal 3.5-5.1 [facility] Comment on above: Performed By: #### C BC, BMP ####[place] [id number] [facility] Sodium [Moles/Vol] 139 mmol/L Normal 136-145 [facility] Comment on above: Performed By: #### C , BMP ####[facility] [place] [address] [facility] Urea nitrogen [Mass/Vol] 7 mg/dL Normal 7-25 [facility] Comment on above: Performed By: #### C BC, BMP ####[facility] [place] [id number] [facility] Basophils Auto (Bld) [#/Vol] Ordered By: Agustin Sandra on 07-01-2023 Basophils (Bld) [#/Vol] 0.1 10*3/uL 0.0-0.2 [facility] Basophils/100 WBC Auto (Bld) Ordered By: Agustin Sandra on 07-01-2023 Basophils/100 WBC (Bld) 0.6 % . [facility] Bilirubin Test strip Ql (U)O rdered By: Agustin Sandra on 07-01-2023 Bilirubin Ql (U) Negative Negative [facility] Calcium [Mass/volume] in Ser um or PlasmaOrdered By: Agustin Sandra on 07-01-2023 Calcium [Mass/Vol] 9.3 mg/dL 8.6-10.3 [facility] Carbon dioxide, total [Moles /volume] in Serum or PlasmaOrdered By: Agustin Sandra on 07-01-2023 CO2 [Moles/Vol] 27.9 mmol/L 21.0-31.0 [facility] Chloride [Moles/volume] in S brian or PlasmaOrdered By: Agustin Sandra on 07-01-2023 Chloride [Moles/Vol] 104 mmol/L 98-107 [facility] Color Auto (U)Ordered By: Naun Sandra on 07-01-2023 Color (U) Yellow Yellow [facility] Complete Blood Count Auto Di ffon 07-01-2023 Basophils (Bld) [#/Vol] 0.1 10*3/uL Normal 0.0-0.2 [facility] Comment on above: Result Comment: PERF ORMED BY: [facility] [address] [place] [id number] PATHOLOGIST [employer] MARTY SALGADO M.D. Performed By: #### C BC, BMP ####[address] [address] [place] Basophils/100 WBC (Bld) 0.6 % Normal . [facility] Comment on above: Performed By: #### C BC, BMP ####[address] [address] [facility] Eosinophils (Bld) [#/Vol] 0.1 10*3/uL Normal 0.0-0.45 [facility] Comment on above: Performed By: #### C BC, BMP ####[address] [address] [facility] Eosinophils/100 WBC (Bld) 1.1 % Normal . [facility] Comment on above: Performed By: #### C BC, BMP ####[place] [id number] [facility] Erythrocyte distribution width (RBC) [Ratio] 16.1 % High 11.9-15.3 [facility] Comment on above: Performed By: #### C BC, BMP ####[address] [address] [facility] Hematocrit (Bld) [Volume fraction] 38.1 % Normal 34.0-46.4 [facility] Comment on above: Performed By: #### C BC, BMP ####[address] [address] [facility] Hemoglobin (Bld) [Mass/Vol] 12.3 g/dL Normal 11.8-15.4 [facility] Comment on above: Performed By: #### C BC, BMP ####[address] [address] [place] Lymphocytes (Bld) [#/Vol] 0.7 10*3/uL Low 1.00-4.8 [facility] Comment on above: Performed By: #### C BC, BMP ####[address] [address] [place] Lymphocytes/100 WBC (Bld) 8.1 % Normal . [facility] Comment on above: Performed By: #### C BC, BMP ####[address] MCH (RBC) [Entitic mass] 23.0 pg Low 24.7-34.3 [facility] Comment on above: Performed By: #### C BC, BMP ####[address] MCV (RBC) [Entitic vol] 71.2 fL Low 80-100 [facility] Comment on above: Performed By: #### C BC, BMP ####[address] Mean Corpuscular HGB Conc 32.3 g/dL Normal 32.0-35.0 [facility] Comment on above: Performed By: #### C BC, BMP ####[address] Monocytes (Bld) [#/Vol] 0.7 10*3/uL Normal 0.0-0.8 [facility] Comment on above: Performed By: #### C BC, BMP ####[address] Monocytes/100 WBC (Bld) 24.10 % High 0.00-20.00 [facility] Comment on above: Result Comment: For adults in ED, MDW > 20.0 may be associated with a higher risk of sepsis during the first 12 hrs of hospital admission Performed By: #### C BC, BMP ####[address] Monocytes/100 WBC (Bld) 8.5 % Normal . [facility] Comment on above: Performed By: #### C BC, BMP ####[address] Neutrophils (Bld) [#/Vol] 6.7 10*3/uL Normal 1.8-7.7 [facility] Comment on above: Performed By: #### C BC, BMP ####[address] [place] [address] [place] Neutrophils/100 WBC (Bld) 81.7 % Normal . [facility] Comment on above: Performed By: #### C LESLY, BMP ####[address] NRBC% 0.0 /100{WBC} Normal 0-0.5 [facility] Comment on above: Performed By: #### C LESLY, BMP ####[address] Platelet mean volume (Bld) [Entitic vol] 7.4 fL Normal 6.3-10.7 [facility] Comment on above: Performed By: #### C LESLY, BMP ####[address] Platelets (Bld) [#/Vol] 320 10*3/uL Normal 150-450 [facility] Comment on above: Performed By: #### C LESLY, BMP ####[address] RBC (Bld) [#/Vol] 5.35 10*6/uL High 3.60-5.00 [facility] Comment on above: Performed By: #### C LESLY, BMP ####[address] WBC (Bld) [#/Vol] 8.2 10*3/uL Normal 3.8-11.6 [facility] Comment on above: Performed By: #### C LESLY, BMP ####[address] Creatinine [Mass/volume] in Serum or PlasmaOrdered By: Agustin Sandra on 07-01-2023 Creatinine [Mass/Vol] 0.79 mg/dL 0.60-1.20 [facility] Dipstick and Microscopicon 0 07-01-2023 Appearance (U) Cloudy Critically abnormal Clear [facility] Comment on above: Order Comment: Name Collection Type:: Clean-Voided Midstream Performed By: #### A EMORYONUAPLUS, UHCG #### [place] [address] [place] Bacteria,Urine None Seen Normal None Seen [facility] Comment on above: Order Comment: Name Collection Type:: Clean-Voided Midstream Performed By: #### A DDONUAPLUS, UHCG #### [place] [address] [place] Bilirubin,Urine Negative Normal Negative [facility] Comment on above: Order Comment: Name Collection Type:: Clean-Voided Midstream Performed By: #### A DDONUAPLUS, UHCG #### [address] Color (U) Yellow Normal Yellow [facility] Comment on above: Order Comment: Name Collection Type:: Clean-Voided Midstream Performed By: #### A DDONUAPLUS, UHCG #### [address] Glucose Ql (U) Normal Normal Normal [facility] Comment on above: Order Comment: Name Collection Type:: Clean-Voided Midstream Performed By: #### A DDONUAPLUS, UHCG #### [place] [address] [place] Hyaline Casts,Urine None Seen Normal 0-8 [facility] Comment on above: Order Comment: Name Collection Type:: Clean-Voided Midstream Performed By: #### A DDONUAPLUS, UHCG #### [place] [address] [place] Ketones Ql (U) Negative Normal Negative [facility] Comment on above: Order Comment: Name Collection Type:: Clean-Voided Midstream Performed By: #### A DDONUAPLUS, UHCG #### [place] [address] [place] Leukocyte esterase Test strip Ql (U) Negative Normal Negative [facility] Comment on above: Order Comment: Name Collection Type:: Clean-Voided Midstream Performed By: #### A DDONUAPLUS, UHCG #### [place] [address] [place] Nitrite,Urine Negative Normal Negative [facility] Comment on above: Order Comment: Name Collection Type:: Clean-Voided Midstream Performed By: #### A DDONUAPLUS, UHCG #### [address] Occult Blood,Urine Trace High Negative [facility] Comment on above: Order Comment: Name Collection Type:: Clean-Voided Midstream Performed By: #### A DDONUAPLUS, UHCG #### [address] pH (U) 8.5 [pH] Normal 5.0-9.0 [facility] Comment on above: Order Comment: Name Collection Type:: Clean-Voided Midstream Performed By: #### A DDONUAPLUS, UHCG #### [address] Protein,Urine Negative Normal Negative [facility] Comment on above: Order Comment: Name Collection Type:: Clean-Voided Midstream Performed By: #### A DDONUAPLUS, UHCG #### [address] RBC,Urine 5-9 High 0-4 [facility] Comment on above: Order Comment: Name Collection Type:: Clean-Voided Midstream Performed By: #### A DDONUAPLUS, UHCG #### [address] Specificy Bode,Urine 1.012 Normal 1.001-1.030 [facility] Comment on above: Order Comment: Name Collection Type:: Clean-Voided Midstream Performed By: #### A DDONUAPLUS, UHCG #### [place] [address] [place] Squamous Epithelial Cell,Urine 0-1 Normal 0-2 [facility] Comment on above: Order Comment: Name Collection Type:: Clean-Voided Midstream Performed By: #### A DDONUAPLUS, UHCG #### [address] Urobilinogen,Urine Normal Normal Normal [facility] Comment on above: Order Comment: Name Collection Type:: Clean-Voided Midstream Performed By: #### A DDONUAPLUS, [facility] #### [place] [address] [place] WBC LM.HPF (Urine sed) [#/Area] 0 /[HPF] Normal 0-4 [facility] Comment on above: Order Comment: Name Collection Type:: Clean-Voided Midstream Performed By: #### A DDONUAPLUS, [facility] #### [facility] [address] [place] [address] [place] Eosinophils Auto (Bld) [#/Vo l]Ordered By: Agustin Sandra on 07-01-2023 Eosinophils (Bld) [#/Vol] 0.1 10*3/uL 0.0-0.45 [facility] Eosinophils/100 WBC Auto (Bl d)Ordered By: Agustin Sandra on 07-01-2023 Eosinophils/100 WBC (Bld) 1.1 % . [facility] Erythrocyte distribution wid th Auto (RBC) [Ratio]Ordered By: Agustin Sandra on 07-01-2023 Erythrocyte distribution width (RBC) [Ratio] 16.1 % 11.9-15.3 [facility] Glucose [Mass/volume] in Ser um or PlasmaOrdered By: Agustin Sandra on 07-01-2023 Glucose [Mass/Vol] 92 mg/dL 70-100 [facility] Comment on above: ADA recommended refe rence rangeRandom Glucose Reference Range is dependent on time and content of last meal. Glucose of more than 200 mg/dL in a nonstressed, ambulatory subject supports the diagnosis of Diabetes Mellitus. HCG ( test) IA.rapi d Ql (U)Ordered By: Agustin Sandra on 07-01-2023 HCG ( test) Ql (U) Negative [facility] HCG,Urineon 07-01-2023 Beta HCG ( test) Ql (U) Negative Normal [facility] Comment on above: Order Comment: Name Collection Type:: Clean-Voided Midstream Result Comment: PERF ORMED BY: [place] [phone] PATHOLOGIST [employer] MARTY SALGADO M.D. Performed By: #### A DDONUAPLUS, [facility] #### [facility] [address] Hematocrit Auto (Bld) [Volum e fraction]Ordered By: Agustin Sandra on 07-01-2023 Hematocrit (Bld) [Volume fraction] 38.1 % 34.0-46.4 [facility] Hemoglobin [Mass/volume] in BloodOrdered By: Agustin Sandra on 07-01-2023 Hemoglobin (Bld) [Mass/Vol] 12.3 g/dL 11.8-15.4 [facility] Ketones Auto test strip (U) [Mass/Vol]Ordered By: Agustin Sandra on 07-01-2023 Ketones (U) [Mass/Vol] Negative Negative [facility] - UrinalysisOrder ed By: Agustin Sandra on 07-01-2023 Hyaline casts LM Ql (Urine sed) None seen [LPF] 0-8 [facility] Leukocytes [#/volume] correc abdias for nucleated erythrocytes in Blood by Automated counOrdered By: Agustin Sandra on 07-01-2023 WBC corrected for nucl RBC Auto (Bld) [#/Vol] 8.2 10*3/uL 3.8-11.6 [facility] Lymphocytes Auto (Bld) [#/Vo l]Ordered By: Agustin Sandra on 07-01-2023 Lymphocytes (Bld) [#/Vol] 0.7 10*3/uL 1.00-4.8 [facility] Lymphocytes/100 WBC Auto (Bl d)Ordered By: Agustin Sandra on 07-01-2023 Lymphocytes/100 WBC (Bld) 8.1 % . [facility] MCH Auto (RBC) [Entitic mass ]Ordered By: Agustin Sandra on 07-01-2023 MCH (RBC) [Entitic mass] 23.0 pg 24.7-34.3 [facility] MCHC Auto (RBC) [Mass/Vol]Or dered By: Agustin Sandra on 07-01-2023 MCHC (RBC) [Mass/Vol] 32.3 g/dL 32.0-35.0 [facility] MCV Auto (RBC) [Entitic vol] Ordered By: Agustin Sandra on 07-01-2023 MCV (RBC) [Entitic vol] 71.2 fL 80-100 [facility] Monocyte distribution width [Entitic volume] in Blood by AutomatedOrdered By: Agustin Sandra on 07-01-2023 Monocyte distribution width Auto (Bld) [Entitic vol] 24.10 % 0.00-20.00 [facility] Comment on above: For adults in ED, MD W > 20.0 may be associated with a higher risk of sepsis during the first 12 hrs of hospital admission Monocytes Auto (Bld) [#/Vol] Ordered By: Agustin Sandra on 07-01-2023 Monocytes (Bld) [#/Vol] 0.7 10*3/uL 0.0-0.8 [facility] Monocytes/100 WBC Auto (Bld) Ordered By: Agustin Sandra on 07-01-2023 Monocytes/100 WBC (Bld) 8.5 % . [facility] Neutrophils Auto (Bld) [#/Vo l]Ordered By: Agustin Sandra on 07-01-2023 Neutrophils (Bld) [#/Vol] 6.7 10*3/uL 1.8-7.7 [facility] Neutrophils/100 WBC Auto (Bl d)Ordered By: Agustin Sandra on 07-01-2023 Neutrophils/100 WBC (Bld) 81.7 % . [facility] Nitrite Test strip Ql (U)Ord ered By: Agustin Sandra on 07-01-2023 Nitrite Ql (U) Negative Negative [facility] No Panel InformationOrdered By: Agustin Sandra on 07-01-2023 Estimated GFR (CKD-EPI) > 60.0 mL/Min [facility] Creatinine Clearance (Chem 127.26 [facility] Nucleated erythrocytes [Pres ence] in Blood by Automated countOrdered By: Agustin Sandra on 07-01-2023 Nucleated RBC Auto Ql (Bld) 0.0 /100{WBC} 0-0.5 [facility] Platelet mean volume Auto (B ld) [Entitic vol]Ordered By: Agustin Sandra on 07-01-2023 Platelet mean volume (Bld) [Entitic vol] 7.4 fL 6.3-10.7 [facility] Platelets Auto (Bld) [#/Vol] Ordered By: Agustin Sandra on 07-01-2023 Platelets (Bld) [#/Vol] 320 10*3/uL 150-450 [facility] Potassium [Moles/volume] in Serum or PlasmaOrdered By: Agustin Sandra on 07-01-2023 Potassium [Moles/Vol] 3.9 mmol/L 3.5-5.1 [facility] Protein Auto test strip (U) [Mass/Vol]Ordered By: Agustin Sandra on 07-01-2023 Protein (U) [Mass/Vol] Negative Negative [facility] RBC Auto (Bld) [#/Vol]Ordere d By: Agustin Sandra on 07-01-2023 RBC (Bld) [#/Vol] 5.35 10*6/uL 3.60-5.00 [facility] Serum or plasma anion gap de terminationOrdered By: Agustin Sandra on 07-01-2023 Anion gap [Moles/Vol] 11.0 mmol/L 6.0-15.0 [facility] Sodium [Moles/volume] in Ser um or PlasmaOrdered By: Agustin Sandra on 07-01-2023 Sodium [Moles/Vol] 139 mmol/L 136-145 [facility] Specific gravity Auto test s trip (U) [Rel density]Ordered By: Agustin Sandra on 07-01-2023 Specific gravity (U) [Rel density] 1.012 1.001-1.030 [facility] Squamous epithelial cells de tection in urine sediment by light microscopyOrdered By: Agustin Sandra on 07-01-2023 Epithelial cells.squamous LM Ql (Urine sed) 0-1 [HPF] 0-2 [facility] Urea nitrogen [Mass/volume] in Serum or PlasmaOrdered By: Agustin Sandra on 07-01-2023 Urea nitrogen [Mass/Vol] 7 mg/dL 7-25 [facility] Urine bacteria detection by automated methodOrdered By: Agustin Sandra on 07-01-2023 Bacteria Auto Ql (U) None seen None Seen [facility] Urine clarity by refractomet ry automatedOrdered By: Agustin Sandra on 07-01-2023 Clarity Refractometry automated (U) Cloudy Clear [facility] Urine glucose measurement by automated test strip (mass/volume)Ordered By: Agustin Sandra on 07-01-2023 Glucose Auto test strip (U) [Mass/Vol] Normal mg/dL Normal [facility] Urine hemoglobin detection b y automated test stripOrdered By: Agustin Sandra on 07-01-2023 Hemoglobin Auto test strip Ql (U) Trace Negative [facility] Urine leukocyte esterase det ection by automated test stripOrdered By: Agustin Sandra on 07-01-2023 Leukocyte esterase Auto test strip Ql (U) Negative Negative [facility] Urobilinogen Auto test strip (U) [Mass/Vol]Ordered By: Agustin Sandra on 07-01-2023 Urobilinogen (U) [Mass/Vol] Normal mg/dL Normal [facility] WBC Auto (Bld) [#/Vol]Ordere d By: Agustin Sandra on 07-01-2023 WBC (Bld) [#/Vol] 8.2 10*3/uL 3.8-11.6 [facility] pH Auto test strip (U)Ordere d By: Agustin Sandra on 07-01-2023 pH (U) 8.5 [pH] 5.0-9.[address] [facility] CT head/brain wo conon 06-19 CT head/[place] [address] CT Scan Report Signed Patient: Loy Tam MR#: [id number] : 1980 Acct:[id number] Age/Sex: 42 / F ADM Date: 06/18/23 Loc: ER Room: Type: [facility] ER Attending Dr: Copies to: Princess Guevara [...] Alan Matta M.D.06/19/2023 10:48 AM Dictation Location: [place] [address] Transcribed By: ILIA 06/19/23 1048 Dictated By: Alan Matta II, MD 06/19/23 104 Signed By: 06/19/23 1048 Normal [facility] XR shoulder LT min 2V*on XR shoulder LT min 2V* [facility] [place] [address] XRay Report Signed Patient: Loy Tam MR#: [id number] : 1980 Acct:[id number] Age/Sex: 42 / F ADM Date: 06/18/23 Loc: ER Room: Type: [facility] ER Attending Dr: Copies to: Princess Guevara [...] Alan Matta M.D.06/19/2023 10:53 AM Dictation Location: [place] [address] Transcribed By: [facility] 06/19/23 1053 Dictated By: Alan Matta II, MD 06/19/23 1049 Signed By: 06/19/23 1053 Normal [facility] ECG 12 lead ECGon 06-18-2023 ECG 12 lead ECG [address] [address] Electrocardiograph Report Signed Patient: Loy Tam MR#: [id number] : 1980 Acct:[id number] Age/Sex: 42 / F ADM Date: 06/18/23 Loc: ER Room: Type: [facility] ER Attending Dr: Ordering Provider: Gabriel Breaux [...] was found Confirmed by GABRIEL BREAUX MD ([id number]) on 06/19/2023 3:14:16 AM Referred By: Electronically Signed By:GABRIEL BREAUX MD Transcribed By: MUS Signed By Gabriel Breaux Jr, MD [id number] Normal [facility] XR wrist LT min 3V*on 2022 XR wrist LT min 3V* [address] [place] [address] XRay Report Signed Patient: Loy Tam MR#: [id number] : 1980 Acct:[id number] Age/Sex: 42 / F ADM Date: 06/14/23 Loc: SOXD Room: Type: [facility] CLI Attending Dr: Gabriel Rosenberg MD Copies [...] Mendenhall Jr., D.ORosey06/14/2023 2:35 PM Dictation Location: [place] [address] Transcribed By: [facility] 06/14/23 1435 Dictated By: Marquise Mendenhall Jr, DO 06/14/23 1432 Signed By: 06/14/23 1435 Normal [facility] NM priyanka perf SPECT rest stron 06-07-2023 NM priyanka perf SPECT rest str [facility] Main [place] [id number] Nuclear Medicine Report Signed Patient: Loy Tam MR#: [id number] : 1980 Acct:[id number] Age/Sex: 42 / F ADM Date: 05/30/23 Loc: ER Room: Type: [facility] ER Attending Dr: Copies to: DO Arnoldo [...] MD 06/07/23 1147 Signed By: 06/07/23 1253 Normal [facility] STR cardiac stress/lexiscano n 06-03-2023 STR cardiac stress/lexiscan [facility] [place] [address] Cardiac Stress Test Signed Patient: Loy Tam MR#: [id number] : 1980 Acct:[id number] Age/Sex: 42 / F ADM Date: 05/30/23 Loc: ER Room: Type: [facility] ER Attending Dr: Copies to: DO Magy Hansen MD, [facility] Ordering Provider: Leonel Guerra DO Date [...] 06/03/232034 Dictated By: Magy Donis MD, [facility] 06/03/23 1742 Signed By: 06/06/23 0911 Normal [facility] Basic Metabolic Panelon - Anion gap [Moles/Vol] 10.2 mmol/L Normal 6.0-15.0 [facility] e [facility] Comment on above: Performed By: #### C BC, HS TROP, BMP #### [facility] [address] Calcium [Mass/Vol] 9.1 mg/dL Normal 8.6-10.3 [facility] Comment on above: Performed By: #### C BC, HS TROP, BMP #### [facility] [address] Chloride [Moles/Vol] 106 mmol/L Normal 98-107 [facility] Comment on above: Performed By: #### C BC, HS TROP, BMP #### [facility] [address] CO2 [Moles/Vol] 29.3 mmol/L Normal 21.0-31.0 [facility] Comment on above: Performed By: #### C BC, HS TROP, BMP #### [facility] [address] Creatinine [Mass/Vol] 0.87 mg/dL Normal 0.60-1.20 [facility] Comment on above: Performed By: #### C BC, HS TROP, BMP #### [facility] [address] [place] [address] [place] Creatinine Clr Calc Pharmacy 112.72 Normal [facility] Comment on above: Result Comment: PERF ORMED BY: [place] [address] PATHOLOGIST [employer] MARTY SALGADO M.D. Performed By: #### C BC, HS TROP, BMP #### [place] [address] [place] GFR/1.73 sq M.predicted MDRD (S/P/Bld) [Vol rate/Area] mL/min/{1.73_m2} Normal [facility] Comment on above: Performed By: #### C BC, HS TROP, BMP #### [facility] [address] [place] [address] [place] Glucose [Mass/Vol] 91 mg/dL Normal 70-100 [facility] Comment on above: Result Comment: [place] Glucose Reference Range is dependent on time and content of last meal. Glucose of more than 200 mg/dL in a nonstressed, ambulatory subject supports the diagnosis of Diabetes Mellitus. ADA recommended reference range Performed By: #### C BC, HS TROP, BMP #### [facility] [address] Potassium [Moles/Vol] 3.5 mmol/L Normal 3.5-5.1 [facility] Comment on above: Performed By: #### C BC, HS TROP, BMP #### [facility] [address] [place] [address] [place] Sodium [Moles/Vol] 142 mmol/L Normal 136-145 [facility] Comment on above: Performed By: #### C BC, HS TROP, BMP #### [facility] [address] [place] [id number] [place] Urea nitrogen [Mass/Vol] 9 mg/dL Normal 7-25 [facility] Comment on above: Performed By: #### C BC, HS TROP, BMP #### [facility] [address] [place] [id number] [place] Basophils Auto (Bld) [#/Vol] Ordered By: Leonel Guerra on 05-31-2023 Basophils (Bld) [#/Vol] 0.1 10*3/uL 0.0-0.2 [facility] Basophils/100 WBC Auto (Bld) Ordered By: Leonel Guerra on 05-31-2023 Basophils/100 WBC (Bld) 1.5 % . [facility] Calcium [Mass/volume] in Ser um or PlasmaOrdered By: Leonel Guerra on 05-31-2023 Calcium [Mass/Vol] 9.1 mg/dL 8.6-10.3 [facility] Carbon dioxide, total [Moles /volume] in Serum or PlasmaOrdered By: Leonel Guerra on 05-31-2023 CO2 [Moles/Vol] 29.3 mmol/L 21.0-31.0 [facility] Chloride [Moles/volume] in S brian or PlasmaOrdered By: Leonel Guerra on 05-31-2023 Chloride [Moles/Vol] 106 mmol/L 98-107 [facility] Complete Blood Count Auto Di ffon 05-31-2023 Basophils (Bld) [#/Vol] 0.1 10*3/uL Normal 0.0-0.2 [facility] Comment on above: Result Comment: PERF ORMED BY: [place] [address] PATHOLOGIST [employer] MARTY SALGADO M.D. Performed By: #### C BC, HS TROP, BMP #### [address] Basophils/100 WBC (Bld) 1.5 % Normal . T he [facility] Comment on above: Performed By: #### C BC, HS TROP, BMP #### [facility] [address] [place] [address] [place] Eosinophils (Bld) [#/Vol] 0.3 10*3/uL Normal 0.0-0.45 [facility] Comment on above: Performed By: #### C BC, HS TROP, BMP #### [place] [address] [place] Eosinophils/100 WBC (Bld) 3.5 % Normal . [facility] Comment on above: Performed By: #### C BC, HS TROP, BMP #### [facility] [address] [place] [address] Erythrocyte distribution width (RBC) [Ratio] 16.2 % High 11.9-15.3 [facility] Comment on above: Performed By: #### C BC, HS TROP, BMP #### [address] Hematocrit (Bld) [Volume fraction] 38.8 % Normal 34.0-46.4 [facility] Comment on above: Performed By: #### C BC, HS TROP, BMP #### [address] Hemoglobin (Bld) [Mass/Vol] 12.4 g/dL Normal 11.8-15.4 [facility] Comment on above: Performed By: #### C BC, HS TROP, BMP #### [address] Lymphocytes (Bld) [#/Vol] 3.7 10*3/uL Normal 1.00-4.8 [facility] Comment on above: Performed By: #### C BC, HS TROP, BMP #### [address] Lymphocytes/100 WBC (Bld) 37.9 % Normal . [facility] Comment on above: Performed By: #### C BC, HS TROP, BMP #### [address] MCH (RBC) [Entitic mass] 23.0 pg Low 24.7-34.3 [facility] Comment on above: Performed By: #### C BC, HS TROP, BMP #### [address] MCV (RBC) [Entitic vol] 72.0 fL Low 80-100 T [facility] Comment on above: Performed By: #### C BC, HS TROP, BMP #### [address] Mean Corpuscular HGB Conc 31.9 g/dL Low 32.0-35.0 [facility] Comment on above: Performed By: #### C BC, HS TROP, BMP #### [place] [address] [place] Monocytes (Bld) [#/Vol] 0.5 10*3/uL Normal 0.0-0.8 [facility] Comment on above: Performed By: #### C BC, HS TROP, BMP #### [place] [address] [place] Monocytes/100 WBC (Bld) 18.79 % Normal 0.00-20.00 [facility] Comment on above: Performed By: #### C BC, HS TROP, BMP #### [facility] [address] [place] [address] [place] Monocytes/100 WBC (Bld) 5.1 % Normal . [facility] Comment on above: Performed By: #### C BC, HS TROP, BMP #### [address] Neutrophils (Bld) [#/Vol] 5.1 10*3/uL Normal 1.8-7.7 [facility] Comment on above: Performed By: #### C BC, HS TROP, BMP #### [address] Neutrophils/100 WBC (Bld) 52.0 % Normal . [facility] Comment on above: Performed By: #### C BC, HS TROP, BMP #### [address] NRBC% 0.2 /100{WBC} Normal 0-0.5 [facility] Comment on above: Performed By: #### C BC, HS TROP, BMP #### [address] Platelet mean volume (Bld) [Entitic vol] 7.3 fL Normal 6.3-10.7 [facility] Comment on above: Performed By: #### C BC, HS TROP, BMP #### [place] [address] [place] Platelets (Bld) [#/Vol] 349 10*3/uL Normal 150-450 [facility] Comment on above: Performed By: #### C BC, HS TROP, BMP #### [place] [address] [place] RBC (Bld) [#/Vol] 5.39 10*6/uL High 3.60-5.00 [facility] Comment on above: Performed By: #### C BC, HS TROP, BMP #### [place] [address] [place] WBC (Bld) [#/Vol] 9.9 10*3/uL Normal 3.8-11.6 [facility] Comment on above: Performed By: #### C BC, HS TROP, BMP #### [address] Creatinine [Mass/volume] in Serum or PlasmaOrdered By: Leonel Guerra on 05-31-2023 Creatinine [Mass/Vol] 0.87 mg/dL 0.60-1.20 [facility] ECG 12 lead ECGon 05-31-2023 ECG 12 lead ECG [facility] Main [place] [address] [place] [address] Electrocardiograph Report Signed Patient: Loy Tam MR#: [id number] : 1980 Acct:[id number] Age/Sex: 42 / F ADM Date: 05/30/23 Loc: ER Room: Type: [facility] ER Attending Dr: Ordering Provider: Leonel Guerra [...] was found Confirmed by LEONEL GUERRA DO ([id number]) on 05/31/2023 2:06:12 AM Referred By: Electronically Signed By:LEONEL GUERRA DO Transcribed By: MUS Signed By Loenel Guerra DO 05/31 0206 Normal [facility] Eosinophils Auto (Bld) [#/Vo l]Ordered By: Leonel Guerra on 05-31-2023 Eosinophils (Bld) [#/Vol] 0.3 10*3/uL 0.0-0.45 [facility] Eosinophils/100 WBC Auto (Bl d)Ordered By: Leonel Guerra on 05-31-2023 Eosinophils/100 WBC (Bld) 3.5 % . [facility] Erythrocyte distribution wid th Auto (RBC) [Ratio]Ordered By: Leonel Guerra on 05-31-2023 Erythrocyte distribution width (RBC) [Ratio] 16.2 % 11.9-15.3 [facility] Glucose [Mass/volume] in Ser um or PlasmaOrdered By: Leonel Guerra on 05-31-2023 Glucose [Mass/Vol] 91 mg/dL 70-100 [facility] Comment on above: ADA recommended refe rence rangeRandom Glucose Reference Range is dependent on time and content of last meal. Glucose of more than 200 mg/dL in a nonstressed, ambulatory subject supports the diagnosis of Diabetes Mellitus. Hematocrit Auto (Bld) [Volum e fraction]Ordered By: Leonel Guerra on 05-31-2023 Hematocrit (Bld) [Volume fraction] 38.8 % 34.0-46.4 [facility] Hemoglobin [Mass/volume] in BloodOrdered By: Leonel Guerra on 05-31-2023 Hemoglobin (Bld) [Mass/Vol] 12.4 g/dL 11.8-15.4 [facility] Leukocytes [#/volume] correc abdias for nucleated erythrocytes in Blood by Automated counOrdered By: Leonel Guerra on 05-31-2023 WBC corrected for nucl RBC Auto (Bld) [#/Vol] 9.9 10*3/uL 3.8-11.6 [facility] Lymphocytes Auto (Bld) [#/Vo l]Ordered By: Leonel Guerra on 05-31-2023 Lymphocytes (Bld) [#/Vol] 3.7 10*3/uL 1.00-4.8 [facility] Lymphocytes/100 WBC Auto (Bl d)Ordered By: Leonel Guerra on 05-31-2023 Lymphocytes/100 WBC (Bld) 37.9 % . [facility] MCH Auto (RBC) [Entitic mass ]Ordered By: Leonel Guerra on 05-31-2023 MCH (RBC) [Entitic mass] 23.0 pg 24.7-34.3 [facility] MCHC Auto (RBC) [Mass/Vol]Or dered By: Leonel Guerra on 05-31-2023 MCHC (RBC) [Mass/Vol] 31.9 g/dL 32.0-35.0 [facility] MCV Auto (RBC) [Entitic vol] Ordered By: Leonel Guerra on 05-31-2023 MCV (RBC) [Entitic vol] 72.0 fL 80-100 [facility] Monocyte distribution width [Entitic volume] in Blood by AutomatedOrdered By: Leonel Guerra on 05-31-2023 Monocyte distribution width Auto (Bld) [Entitic vol] 18.79 % 0.00-20.00 [facility] Monocytes Auto (Bld) [#/Vol] Ordered By: Leonel Guerra on 05-31-2023 Monocytes (Bld) [#/Vol] 0.5 10*3/uL 0.0-0.8 [facility] Monocytes/100 WBC Auto (Bld) Ordered By: Leonel Guerra on 05-31-2023 Monocytes/100 WBC (Bld) 5.1 % . [facility] Neutrophils Auto (Bld) [#/Vo l]Ordered By: Leonel Guerra on 05-31-2023 Neutrophils (Bld) [#/Vol] 5.1 10*3/uL 1.8-7.7 [facility] Neutrophils/100 WBC Auto (Bl d)Ordered By: Leonel Guerra on 05-31-2023 Neutrophils/100 WBC (Bld) 52.0 % . [facility] No Panel InformationOrdered By: Leonel Guerra on 05-31-2023 Estimated GFR (CKD-EPI) > 60.0 mL/Min [facility] Creatinine Clearance (Chem 112.72 [facility] Nucleated erythrocytes [Pres ence] in Blood by Automated countOrdered By: Leonel Guerra on 05-31-2023 Nucleated RBC Auto Ql (Bld) 0.2 /100{WBC} 0-0.5 [facility] Platelet mean volume Auto (B ld) [Entitic vol]Ordered By: Leonel Guerra on 05-31-2023 Platelet mean volume (Bld) [Entitic vol] 7.3 fL 6.3-10.7 [facility] Platelets Auto (Bld) [#/Vol] Ordered By: Leonel Guerra on 05-31-2023 Platelets (Bld) [#/Vol] 349 10*3/uL 150-450 [facility] Potassium [Moles/volume] in Serum or PlasmaOrdered By: Leonel Guerra on 05-31-2023 Potassium [Moles/Vol] 3.5 mmol/L 3.5-5.1 [facility] RBC Auto (Bld) [#/Vol]Ordere d By: Leonel Guerra on 05-31-2023 RBC (Bld) [#/Vol] 5.39 10*6/uL 3.60-5.00 [facility] Serum or plasma anion gap de terminationOrdered By: Leonel Guerra on 05-31-2023 Anion gap [Moles/Vol] 10.2 mmol/L 6.0-15.0 [facility] Sodium [Moles/volume] in Ser um or PlasmaOrdered By: Leonel Guerra on 05-31-2023 Sodium [Moles/Vol] 142 mmol/L 136-145 [facility] Troponin I High Sensitivityo n 05-31-2023 Troponin I High Sensitivity 5.9 pg/mL Normal 0.0-15.0 [facility] Comment on above: Result Comment: PERF ORMED BY: [facility] [address] [place] [address] PATHOLOGIST [employer]PER[employer] MARTY SALGADO M.D. Performed By: #### H S TROP ####[facility] [place] [facility] [id number] [place] [id number] [facility] Troponin I High Sensitivity 6.5 pg/mL Normal 0.0-15.0 [facility] Comment on above: Result Comment: PERF ORMED BY: [facility] [address] [place] [address] PATHOLOGIST [employer] SUPER[employer] MARTY SALGADO M.D. Performed By: #### C BC, HS TROP, BMP #### [facility] [address] [place] [id number] [facility] Troponin I.cardiac [Mass/vol ume] in Serum or Plasma by Detection limit <= 0.01 ng/Ordered By: Leonel Guerra on 05-31-2023 Troponin I.cardiac DL <= 0.01 ng/mL [Mass/Vol] 5.9 pg/mL 0.0-15.0 [facility] Urea nitrogen [Mass/volume] in Serum or PlasmaOrdered By: Leonel Guerra on 05-31-2023 Urea nitrogen [Mass/Vol] 9 mg/dL 06-21 [facility] WBC Auto (Bld) [#/Vol]Ordere d By: Leonel Guerra on 05-31-2023 WBC (Bld) [#/Vol] 9.9 10*3/uL 3.8-11.6 [facility] XR chest 2V*on 05-31-2023 XR chest 2V* [facility] Main [address] [address] XRay Report Signed Patient: Loy Tam MR#: [id number] : 1980 Acct:[id number] Age/Sex: 42 / F ADM Date: 05/30/23 Loc: ER Room: Type: [facility] ER Attending Dr: Copies to: Leonel Guerra [...] Ancelmo Castellano M.D.05/31/2023 8:23 AM Dictation Location: [place] [address] Transcribed By: [facility] 05/31/23822 Dictated By: Ancelmo Castellano DO 05/31/23822 Signed By: 05/31/23822 Normal [facility] XR wrist LT min 3V*on 2022 XR wrist LT min 3V* [facility] Main [address] [address] XRay Report Signed Patient: Loy Tam MR#: [id number] : 1980 Acct:[id number] Age/Sex: 42 / F ADM Date: 04/18/23 [...] Alan Matta M.D.04/18/2023 1:04 PM Dictation Location: [place] [address] Transcribed By: [facility] 04/18/23 1304 Dictated By: Alan Matta II, MD 04/18/23 1302 Signed By: 04/18/23 1304 Normal [facility] Serum heterophile antibody d etection by latex agglutinationOrdered By: Arnoldo Pérez on 01-19-2023 Heterophile Ab LA Ql (S) Negative Negative [facility] Streptococcus pyogenes antig en detectionOrdered By: Arnoldo Pérez on 01-19-2023 S. pyogenes Ag Ql (Unsp spec) [facility] COVID CepheidOrdered By: Radha Cooper on 01-08-2023 SARS-CoV-2 (COVID-19) Ab IA Ql Negative Negative [facility] Comment on above: This is a duplicate Cepheid Xpert Xpress CoV-2/Flu/RSV Plus RNA by RT-PCR result to be used for statistical tracking purpose only. SARS-CoV-2 (COVID-19) RNA AMBROSE+probe Ql (Unsp spec) [facility] Streptococcus pyogenes antig en detectionOrdered By: Caitlyn Cooper on 01-04-2023 S. pyogenes Ag Ql (Unsp spec) [facility] COVID CepheidOrdered By: Cachorro Breaux on 11-17-2022 SARS-CoV-2 (COVID-19) Ab IA Ql Negative Negative [facility] Comment on above: This is a duplicate Cepheid Xpert Xpress CoV-2/Flu/RSV Plus RNA by RT-PCR result to be used for statistical tracking purpose only. SARS-CoV-2 (COVID-19) RNA AMBROSE+probe Ql (Unsp spec) [facility] SARS-CoV-2 (COVID-19) RNA AMBROSE+probe Ql (Unsp spec) [facility] COVID-19 SOFIAOrdered By: Jose Pearl on 08-23-2022 SARS-CoV+SARS-CoV-2 (COVID-19) Ag IA.rapid Ql (Resp) Negative Negative [facility] Comment on above: This is a duplicate Lilibeth SARS Antigen (REGINO) result to be used for statistical tracking purpose only. No Panel InformationOrdered By: Praveen Pearl on 08-23-2022 SARS Antigen (LFIA) [facility] POINT OF CARE GLUCOSEon 05-0 Glucose [Mass/Vol] 116 mg/dL Critically high 74-106 [facility] Comment on above: Performed By: #### P OCGLUC #### [facility] [address] [place] [address] [address] Mai Salamanca PREG HCG QUALon 03-30-2022 , QUAL Negative Normal NEGATIVE [facility] Comment on above: Performed By: #### P REG #### [facility] [address] [place], [place] [address] Dr. Mai Salamanca Vital Signs Date Time Vital Sign Value Performing Clinician Facility 07-01-2023 11:53-0400 Diastolic blood pressure 85 mm[Hg] [facility] Work Phone: [facility] 07-01-2023 11:53-0400 Heart rate 92 /min [facility] Work Phone: [facility] 07-01-2023 11:53-0400 Systolic blood pressure 149 mm[Hg] [facility] Work Phone: [facility] 07-01-2023 09:37-0400 Body height 176.53 cm [facility] Work Phone: [facility] 07-01-2023 09:37-0400 Body temperature 99.3 [degF] Services [facility] Work Phone: [facility] 07-01-2023 09:37-0400 Body weight 122.46 kg Services [facility] Work Phone: [facility] 07-01-2023 09:37-0400 Respiratory rate 24 /min Services [facility] Work Phone: [facility] 07-01-2023 09:37-0400 SaO2% (BldA) [Mass fraction] 99 % Services [facility] Work Phone: [facility] 06-19-2023 00:00-0400 Diastolic blood pressure 61 mm[Hg] Services [facility] Work Phone: [facility] 06-19-2023 00:00-0400 Heart rate 71 /min Services [facility] Work Phone: [facility] 06-19-2023 00:00-0400 Respiratory rate 20 /min Services [facility] Work Phone: [facility] 06-19-2023 00:00-0400 SaO2% (BldA) [Mass fraction] 100 % Services [facility] Work Phone: [facility] 06-19-2023 00:00-0400 Systolic blood pressure 129 mm[Hg] Services [facility] Work Phone: [facility] 06-18-2023 21:21-0400 Body height 175.26 cm Services [facility] Work Phone: [facility] 06-18-2023 21:21-0400 Body weight 117.02 kg Services [facility] Work Phone: [facility] 06-18-2023 21:20-0400 Body temperature 98.6 [degF] Services [facility] Work Phone: [facility] 06-03-2023 11:58-0400 Diastolic blood pressure 90 mm[Hg] Services [facility] Work Phone: [facility] 06-03-2023 11:58-0400 Heart rate 91 /min Services [facility] Work Phone: [facility] 06-03-2023 11:58-0400 Systolic blood pressure 145 mm[Hg] [facility] Work Phone: [facility] 05-31-2023 04:30-0400 Diastolic blood pressure 82 mm[Hg] Services [facility] Work Phone: [facility] 05-31-2023 04:30-0400 Heart rate 75 /min Services [facility] Work Phone: [facility] 05-31-2023 04:30-0400 Respiratory rate 20 /min Services [facility] Work Phone: [facility] 05-31-2023 04:30-0400 SaO2% (BldA) [Mass fraction] 98 % Services [facility] Work Phone: [facility] 05-31-2023 04:30-0400 Systolic blood pressure 150 mm[Hg] Services [facility] Work Phone: [facility] 05-30-2023 23:32-0400 Body height 176.53 cm Services [facility] Work Phone: [facility] 05-30-2023 23:32-0400 Body temperature 98.2 [degF] Services [facility] Work Phone: [facility] 05-30-2023 23:32-0400 Body weight 117.02 kg Services [facility] Work Phone: [facility] 04-18-2023 12:10-0400 Body temperature 98.2 [degF] Services [facility] Work Phone: [facility] 04-18-2023 12:10-0400 Diastolic blood pressure 91 mm[Hg] Services [facility] Work Phone: [facility] 04-18-2023 12:10-0400 Heart rate 86 /min Services [facility] Work Phone: [facility] 04-18-2023 12:10-0400 Respiratory rate 18 /min Services [facility] Work Phone: [facility] 04-18-2023 12:10-0400 SaO2% (BldA) [Mass fraction] 100 % Services [facility] Work Phone: [facility] 04-18-2023 12:10-0400 Systolic blood pressure 169 mm[Hg] Services [facility] Work Phone: [facility] 04-18-2023 12:06-0400 Body height 175.26 cm Services [facility] Work Phone: [facility] 04-18-2023 12:06-0400 Body weight 129.1 kg Services [facility] Work Phone: [facility] 01-19-2023 09:40-0500 Diastolic blood pressure 67 mm[Hg] Services [facility] Work Phone: [facility] 01-19-2023 09:40-0500 Heart rate 86 /min Services [facility] Work Phone: [facility] 01-19-2023 09:40-0500 Respiratory rate 20 /min Services [facility] Work Phone: [facility] 01-19-2023 09:40-0500 SaO2% (BldA) [Mass fraction] 100 % Services [facility] Work Phone: [facility] 01-19-2023 09:40-0500 Systolic blood pressure 145 mm[Hg] Services [facility] Work Phone: [facility] 01-19-2023 07:19-0500 Body height 175.26 cm Services [facility] Work Phone: [facility] 01-19-2023 07:19-0500 Body temperature 98 [degF] Services [facility] Work Phone: [facility] 01-19-2023 07:19-0500 Body weight 127.3 kg Services [facility] Work Phone: [facility] 01-08-2023 14:52-0500 Body height 176.53 cm Services [facility] Work Phone: [facility] 01-08-2023 14:52-0500 Body temperature 98.9 [degF] Services [facility] Work Phone: [facility] 01-08-2023 14:52-0500 Body weight 124.45 kg Services [facility] Work Phone: [facility] 01-08-2023 14:52-0500 Diastolic blood pressure 74 mm[Hg] Services [facility] Work Phone: [facility] 01-08-2023 14:52-0500 Heart rate 93 /min Services [facility] Work Phone: [facility] 01-08-2023 14:52-0500 Respiratory rate 20 /min Services [facility] Work Phone: [facility] 01-08-2023 14:52-0500 SaO2% (BldA) [Mass fraction] 98 % Services [facility] Work Phone: [facility] 01-08-2023 14:52-0500 Systolic blood pressure 143 mm[Hg] Services [facility] Work Phone: [facility] 01-04-2023 11:34-0500 Body height 175.26 cm Services [facility] Work Phone: [facility] 01-04-2023 11:34-0500 Body temperature 98.7 [degF] Services [facility] Work Phone: [facility] 01-04-2023 11:34-0500 Body weight 107.9 kg Services [facility] Work Phone: [facility] 01-04-2023 11:34-0500 Diastolic blood pressure 91 mm[Hg] Services [facility] Work Phone: [facility] 01-04-2023 11:34-0500 Heart rate 98 /min Services [facility] Work Phone: [facility] 01-04-2023 11:34-0500 Respiratory rate 18 /min Services [facility] Work Phone: [facility] 01-04-2023 11:34-0500 SaO2% (BldA) [Mass fraction] 100 % Services [facility] Work Phone: [facility] 01-04-2023 11:34-0500 Systolic blood pressure 165 mm[Hg] Services [facility] Work Phone: [facility] 11-17-2022 02:32-0500 Diastolic blood pressure 98 mm[Hg] Services [facility] Work Phone: [facility] 11-17-2022 02:32-0500 Heart rate 92 /min Services [facility] Work Phone: [facility] 11-17-2022 02:32-0500 Respiratory rate 18 /min Services [facility] Work Phone: [facility] 11-17-2022 02:32-0500 SaO2% (BldA) [Mass fraction] 98 % Services [facility] Work Phone: [facility] 11-17-2022 02:32-0500 Systolic blood pressure 168 mm[Hg] Services [facility] Work Phone: [facility] 11-16-2022 23:12-0500 Body height 176.53 cm Services [facility] Work Phone: [facility] 11-16-2022 23:12-0500 Body weight 126.35 kg Services [facility] Work Phone: [facility] 11-16-2022 23:11-0500 Body temperature 98.1 [degF] Services [facility] Work Phone: [facility] 09-17-2022 23:07-0400 Body height 175.26 cm Services [facility] Work Phone: [facility] 09-17-2022 23:07-0400 Body temperature 98.2 [degF] Services [employer] Work Phone: [facility] 09-17-2022 23:07-0400 Body weight 124.25 kg Services [facility] Work Phone: [facility] 09-17-2022 23:07-0400 Diastolic blood pressure 70 mm[Hg] Services [facility] Work Phone: [facility] 09-17-2022 23:07-0400 Heart rate 75 /min Services [facility] Work Phone: [facility] 09-17-2022 23:07-0400 Respiratory rate 18 /min Services [facility] [employer] Work Phone: [facility] 09-17-2022 23:07-0400 SaO2% (BldA) [Mass fraction] 94 % Services [facility] Work Phone: [facility] 09-17-2022 23:07-0400 Systolic blood pressure 153 mm[Hg] Services [facility] Work Phone: [facility] 08-23-2022 07:17-0400 Body height 175.26 cm DO Clyde Visci Work Phone: [facility] 08-23-2022 07:17-0400 Body temperature 98.2 [degF] DO Clyde Visci Work Phone: [facility] 08-23-2022 07:17-0400 Body weight 110.22 kg DO Clyde Visci Work Phone: [facility] 08-23-2022 07:17-0400 Diastolic blood pressure 75 mm[Hg] DO Clyde Visci Work Phone: [facility] 08-23-2022 07:17-0400 Heart rate 83 /min DO Clyde Visci Work Phone: [facility] 08-23-2022 07:17-0400 Respiratory rate 18 /min DO Clyde Visci Work Phone: [facility] 08-23-2022 07:17-0400 SaO2% (BldA) [Mass fraction] 100 % DO Clyde Visci Work Phone: [facility] 08-23-2022 07:17-0400 Systolic blood pressure 145 mm[Hg] DO Cldye Visci Work Phone: [facility] 07-13-2022 12:00-0400 Body height 175.26 cm Gabriel Olexa Other [facility] [employer] Other 07-13-2022 12:00-0400 Body mass index (BMI) [Ratio] 39.13 kg/m2 Gabriel Olexa Other [facility] Other 07-13-2022 12:00-0400 Body weight 120.2 kg Gabriel Olexa Other [facility] Other 07-06-2022 21:44-0400 Body height 176.53 cm DO Clyde Visci Work Phone: [facility] 07-06-2022 21:44-0400 Body weight 112.49 kg DO Clyde Visci Work Phone: [facility] 07-06-2022 21:43-0400 Body temperature 98.2 [degF] DO Clyde Visci Work Phone: [facility] 07-06-2022 21:43-0400 Diastolic blood pressure 72 mm[Hg] DO Clyde Visci Work Phone: [facility] 07-06-2022 21:43-0400 Heart rate 93 /min DO Clyde Visci Work Phone: [facility] 07-06-2022 21:43-0400 Respiratory rate 17 /min DO Clyde Visci Work Phone: [facility] 07-06-2022 21:43-0400 SaO2% (BldA) [Mass fraction] 100 % DO Clyde Aguilera Work Phone: [facility] 07-06-2022 21:43-0400 Systolic blood pressure 135 mm[Hg] DO Clyde Aguilera Work Phone: [facility] 2019 13:18-0500 BMI (Body Mass Index) 40.2 kg/m2 [facility] 2019 13:18-0500 Body Temperature 98.2 [degF] [facility] 2019 13:18-0500 Body weight 127.3 kg [facility] 2019 13:18-0500 BP Diastolic 81 mm[Hg] [facility] 2019 13:18-0500 BP Systolic 143 mm[Hg] [facility] 2019 13:18-0500 Height 177.8 cm [facility] 2019 13:18-0500 Pulse (Heart Rate) 88 /min [facility] 2019 13:18-0500 Pulse Oximetry 99 % [facility] 2019 13:18-0500 Respiratory Rate 17 /min [facility] Encounters Encounter Date Encounter Type Care Provider Facility Start: 03-12-2024 End: 03-13-2024 ambulatory Alfie Dixon MD Facility: [facility] Start: 03-08-2024 End: 03-08-2024 ambulatory Services [facility] Facility[facility] Start: 03-08-2024 End: 03-08-2024 ambulatory Services [facility] Work Phone: [facility] Work Phone: Start: 03-08-2024 End: 03-08-2024 Patient encounter procedure Services [facility] Work Phone: [facility]-Ultrasound Cntr for Breast Car Start: 02-27-2024 End: 02-28-2024 ambulatory Alfie Dixon MD Facility:[facility] Start: 02-06-2024 End: 02-07-2024 ambulatory Alfie Dixon MD Facility:[facility] Start: 12-02-2023 End: 12-02-2023 ambulatory Services [facility] Start: 12-02-2023 End: 12-02-2023 ambulatory [facility] Work Phone: [facility] Work Phone: Start: 12-02-2023 End: 12-02-2023 Patient encounter procedure [facility] Work Phone: [facility] for [facility] Work Phone: Start: 10-07-2023 End: 10-07-2023 ambulatory Services [facility] Facility:[facility] Start: 10-07-2023 End: 10-07-2023 ambulatory Services [facility] Work Phone: [facility] Work Phone: Start: 10-07-2023 End: 10-07-2023 Patient encounter procedure [facility] Work Phone: [facility]-Lab [facility] [place] Work Phone: Start: 08-09-2023 End: 08-09-2023 ambulatory [facility] Facility:[facility] Start: 08-09-2023 End: 08-09-2023 ambulatory [facility] Work Phone: [facility] Work Phone: Start: 08-09-2023 End: 08-09-2023 Patient encounter procedure Services [facility] Work Phone: [facility]-Electrodiagnostics Work Phone: Start: 07-13-2023 End: 07-13-2023 ambulatory Marquise Disla Facility:[facility] Start: 07-13-2023 End: 07-13-2023 ambulatory [facility] Work Phone: [facility] Work Phone: Start: 07-13-2023 End: 07-13-2023 Patient encounter procedure Services [facility] Work Phone: [facility] [place] Work Phone: Start: 07-01-2023 End: 07-01-2023 Emergency department patient visit Agustin Sandra Facility:[facility] Start: 07-01-2023 End: 07-01-2023 Emergency department patient visit [facility] Work Phone: [facility]-Emergency Room Work Phone: Start: 06-18-2023 End: 06-19-2023 Emergency department patient visit Services [facility] Facility:[facility] Start: 06-18-2023 End: 06-19-2023 Emergency department patient visit [facility] Work Phone: [facility]-Emergency Room Work Phone: Start: 06-14-2023 Office outpatient visit 15 minutes [facility] Start: 06-14-2023 End: 06-14-2023 ambulatory Services [facility] [employer] Other Start: 06-14-2023 End: 06-14-2023 Patient encounter procedure Services [facility] Work Phone: [facility] Start: 06-03-[address] Marcos Gregory Facility:[id number] Start: 05-31-2023 End: 05-31-2023 Emergency department patient visit Leonel Guerra Facility:[facility] Start: 05-30-2023 End: 05-31-2023 Emergency department patient visit [facility] Work Phone: [facility]-Emergency Room Work Phone: Start: 05-12-2023 ambulatory ANGEL PERALESMIMILTON . Facility:[facility] Start: 04-18-2023 End: 04-18-2023 Emergency department patient visit Agustin Sandra Facility:[facility] Start: 04-18-2023 End: 04-18-2023 Emergency department patient visit [facility] Work Phone: [facility]-Emergency Room Work Phone: Start: 02-10-2023 End: 02-11-[address] UZAIR LIGHT . Facility:[facility] Start: 01-19-2023 End: 01-19-2023 Emergency department patient visit [facility] Work Phone: [facility]-Emergency Room Work Phone: Start: 01-08-2023 End: 01-08-2023 Emergency department patient visit [facility] Work Phone: [facility]Emergency [facility] Work Phone: Start: 01-04-2023 End: 01-04-2023 Emergency department patient visit [facility] Work Phone: [facility]-Emergency Room Work Phone: Start: 11-16-2022 End: 11-17-2022 Emergency department patient visit [facility] Work Phone: [facility]-Emergency Room Start: 11-04-2022 End: 11-05-[address] UZAIR LIGHT . Facility:[facility] Start: 10-12-2022 End: 10-12-2022 Patient encounter procedure [facility] Work Phone: [facility] [place] [facility] Start: 09-17-2022 End: 09-18-2022 Emergency department patient visit [facility] Work Phone: [facility]-Emergency Room Start: 08-23-2022 End: 08-23-2022 Emergency department patient visit DO Clyde Visci Work Phone: [facility]-Emergency Room Start: 08-18-2022 End: 08-18-2022 Patient encounter procedure DO Clyde Visci Work Phone: [facility]-MRI [address] Start: 07-13-2022 End: 07-13-2022 ambulatory Gabriel Rosenberg Other [facility] Other Start: 07-13-2022 Office outpatient ne w 45 minutes Gabriel Rosenberg [facility] [place] [facility] Start: 07-08-2022 End: 07-09-[address] UZAIR LIGHT . Facility:[facility] Start: 07-06-2022 End: 07-06-2022 Emergency department patient visit DO Clyde Aguilera Work Phone: [facility]-Emergency Room Start: 04-15-2022 End: 04-16-[address] UZAIR LIGHT . Facility:[facility] Start: 03-30-2022 End: 03-30-[address] UZAIR LIGHT . Facility:[facility] Start: 01-08-2020 End: 01-08-2020 Patient encounter procedure Clyde Yehi -Ultrasound [facility] [place] Start: 2019 End: 2019 Emergency department patient visit Clyde Visci -Emergency Room Start: 09-17-2019 End: 09-17-2019 Emergency department patient visit Clyde Visci -Emergency Room Start: 12-26-2018 End: 12-26-2018 Patient encounter procedure Clyde Yehi -XRay [address] Start: 02-02-2005 Evaluation and management of inpatient Clyde Yehi -[facility] Procedures Date Procedure Procedure Detail Performing Clinician Start: 03-08-2024 Ultrasonography of b ilateral breasts Services [facility] Phone: Start: 12-02-2023 Screening mammograph y of bilateral breasts [facility] Phone: Start: 06-18-2023 CT of head without contrast [facility] Phone: Start: 06-18-2023 Plain X-ray of left shoulder [facility] Phone: Start: 06-14-2023 Plain X-ray of left wrist [facility] Phone: Start: 06-03-2023 Radionuclide myocard ial perfusion stress study Services [facility] Phone: Start: 05-31-2023 Plain chest X-ray Servi rachel [facility] Work Phone: Start: 04-18-2023 Plain X-ray of left wrist [facility] Work Phone: Start: 01-19-2023 Streptococcus pyogen es antigen assay Services [facility] Phone: Start: 01-08-2023 SARS-CoV-2, Influenz a & RSV (PCR) Services [facility] Work Phone: Start: 01-04-2023 Streptococcus pyogen es antigen assay Services [facility] Phone: Start: 11-17-2022 SARS-CoV-2, Influenz a & RSV (PCR) Services [facility] Phone: Start: 10-12-2022 X-ray of left ankle Ser vices [facility] Phone: Start: 08-18-2022 MRI of right knee DO Estrella mayo [facility] Work Phone: Start: 07-06-2022 Plain X-ray of left wrist DO Clyde Yehi Work Phone: Start: 07-06-2022 X-ray of right knee DO Clyde Visci Work Phone: Start: 01-08-2020 Duplex scan of lower limb veins Clyde Yehi Start: 2019 X-ray of left ankle Giovanni hard [facility] H/O: section S/P DO Estrella mayo [facility] Work Phone: SARS Antigen (LFIA) DO Karen fowler [facility] Work Phone: SARS-CoV-2, Influenz a & RSV (PCR) Services [facility] Work Phone: Plan of Treatment Date Care Activity Detail Author Start: 06-18-2023 CT of head without contrast CT head/ brain wo con [facility] Start: 06-18-2023 CT Unspecified body region WO contrast [facility] Start: 06-18-2023 Plain X-ray of left shoulder XR shoulder LT min 2V* [facility] Start: 06-18-2023 XR Shoulder - left Views [facility] Start: 05-31-2023 [facility] Start: 05-31-2023 Plain chest X-ray XR chest 2V* [facility] Start: 05-31-2023 XR Chest 2 Views [facility] Cardiovascular stres s testing [facility] Patient Education [facility] Patient referral [facility] Immunizations Immunization Date Immunization Notes Care Provider Fa cility 12-10-2018 tetanus toxoid, redu nissa diphtheria toxoid, and acellular pertussis vaccine, adsorbed Clyde Visci [facility] Payers Date Payer Category Payer Medicare 2023 Self-pay [id number] 2022 Medicaid [id number] 1978 Unknown [id number] [id number] 93 1978 Unknown [id number] 2.16.840.1.166684.3.579.2.5 93 1978 Unknown [id number] 2.16.840.1.859596.3.579.2.5 93 1978 Unknown [id number] 2.16.840.1.233473.3.579.2.5 93 1978 Unknown [id number] 2.16.840.1.036917.3.579.2.5 93 1978 Unknown [id number] 2.16.840.1.577555.3.579.2.5 93 1978 Unknown [id number] 2.16.840.1.552545.3.579.2.3 56 1978 Unknown [id number] 2.16.840.1.450671.3.579.2.1 96 1978 Unknown [id number] 2.16.840.1.861631.3.579.2.1 1978 Unknown [id number] 2.16.840.1.967598.3.579.2.1 1959 Medicare [id number] 1959 Unknown [id number] [id number] Private Health Insurance [id number] Unknown Self Pay [id number] Unknown Regular Auto/Liability [id number] Unknown [id number] 2.16.840.1.613471.3.579.2.5 31 Unknown [id number] 2.16.840.1.836393.3.579.2.5 31 Unknown [id number] 2.16.840.1.226895.3.579.2.5 31 Unknown [id number] 2.16.840.1.660108.3.579.2.5 31 Unknown [id number] 2.16.840.1.780909.3.579.2.5 31 Unknown [id number] 2.16.840.1.118535.3.579.2.5 31 Unknown [id number] 2.16.840.1.259286.3.579.2.5 31 Unknown [id number] 2.16840.1.402054.3.579.2.5 31 Unknown [id number] 2.16840.1.987889.3.579.2.5 31 Unknown [id number] 2.16840.1.719374.3.579.2.5 31 Social History Date Type Detail Facility Start: 2019 End: 01-19-2023 Tobacco smoking status ALIS Ex-smoker (finding) [facility] Start: 1980 Sex Assigned At Female [facility] Sex Assigned At Sex Assigned At Bir th [employer] Other Start: 07-06-2022 End: 07-01-2023 Tobacco smoking status NHIS Never smoked tobacco (finding) [facility] Goals Date Patient Goal Desired Activity [...] We also discussed a carpal tunnel release. [employer] Other 03-16-2023 NoteCONSULTATION CONSULTATION DATE: 02/10/2023 HISTORY: [...] three months' time, unless otherwise indicated.[id number] Hospital Discharge instructions Additional Instructions Take the [...] fever difficulty breathing vomiting or any other [facility] Work Phone: [phone] 638-477412-08-2022 NoteCONSULTATION CONSULTATION DATE: 11/04/2022 HISTORY OF PRESENT [...] 20-30 a week. Patient does work at [employer] and is on her foot a lot. [...] agrees with the plan of care.[facility] [id number] Evaluation note* Encounter Date Diagnosis Assessment Notes [...] tolerated the injection well without adverse reaction. [employer] Other 08-11-2022 NoteCONSULTATION CONSULTATION DATE: 07/08/2022 HISTORY [...] pending appointment with Dr. Rosenberg, Orthopedic in [place] next week. They are going to discuss [...] is in agreement to this plan.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 She is on her feet a lot and has recently experienced left lower extremity swelling. Overall, the patient felt that's some pressure has been released with this recent sympathetic block. Current medications include gabapentin 200 mg a.m., 200 mg noon and 400 mg at dusk, Percocet 5/325 t.i.d., Vistaril and a vitamin complex. The patient does continue to go to physical therapy at [facility] in [place]. Activities that aggravate her pain are standing, [...] of care and would like to proceed. [facility] Signed and Approved by: NICO GARCIAS . 04/19/2022 15:06:00[facility] noteNo assessment information availableL[facility] Work Phone: History general Narrative - Reported* Type Description Date Medical History Rheumatoid arthritis Medical History carpal tunnel Medical History diabetes Medical History HTN Surgical History Bilateral feet surgery-heel spu rs Surgical History x 2 Surgical History gall bladder Surgical History tendon repair, nerve repair lef t lower extremity 2019 Surgical History left carpal tunnel release 2020 Hospitalization History see surgeries [employer] Other Hospital Discharge instructions Additional Instructions Tylenol every 4 hours as needed for pain Return if symptoms are worse Watch for signs of infection Follow-up with your nailbed salon and get the false nail removed tomorrow [facility] Work Phone: Hospital Discharge instructions Additional Instructions Follow-up with your primary care doctor Return to ED if develop worsening symptoms or [facility] Work Phone: Hospital Discharge instructions Additional Instructions I am not able to prescribe you any pain medication as you have a current prescription for Percocet.[facility] Work Phone: Advance Directives No Advanced Directives [...] VISIT (unrecogniz ed section and content) [facility] LT WRIST CYST RT KNE E PAIN WXLeft Wrist Pain, Right Carpal Tunnel SyndromeLeft Wrist Pain, Right Carpal Tunnel Syndrome Care Teams (unrecognized sec tion and content) Team Status: Active Member Role Status Formerly [facility] Primary Care Provider Active Team Status: Active Member Role Status Breana Aguilera DO Attending Provider Active Team Status: Inactive Member Role Status Formerly [facility] Primary Care Provider Active Agustin Sandra APRN Emergency Provider Active Team Status: Inactive Member Role Status Formerly [facility] Primary Care Provider Active Leonel Guerra DO Emergency Provider Active Team Status: Inactive Member Role Status Formerly [facility] Primary Care Provider Active Marissa Elliott APRN Emergency Provider Active Team Status: Inactive Member Role Status Formerly [facility] Primary Care Provider Active Praveen Pearl DO Emergency Provider Active Team Status: Inactive Member Role Status Formerly [facility] Primary Care Provider Active Gabriel Rosenberg MD Attending Provider Active Team Status: Inactive Member Role Status Formerly [facility] Primary Care Provider Active Ayan Andrade MD Emergency Provider Active Team Status: Inactive Member Role Status Formerly [facility] Primary Care Provider Active Gabriel Breaux Jr, MD Emergency Provider Active Team Status: Inactive Member Role Status Formerly [facility] Primary Care Provider Active Abner Garcia DPM MS Attending Provider Active Team Status: Inactive Member Role Status Formerly [facility] Primary Care Provider Active MELISSA MylesP- Emergency Provider Active Team Status: Inactive Member Role Status Formerly [facility] Primary Care Provider Active Arnoldo Pérez DO [...] Inactive Member Role Status D[facility] Primary Care Provider Active Teo Heath , DO Attending Provider Active John Luu , DO RES Referring Provider Active Team Status: Inactive Member Role Status Dates Services [facility] Primary Care Provider Active Referral Self Attending Provider Active Team Status: Active Member Role Status Dates Clyde Aguilera , DO Attending Provider Active Sta rt: February 02, 2005 Team Status: Inactive Member Role Status Dates Services [facility] Primary Care Provider Active Start: March 08, 2024 End: March 08, 2024 John Luu , DO RES Attending Provider Active Start: March 08, 2024 End: March 08, 2024 Goals (unrecognized section and content) Goals may be documented in a n alternate section INFORMATION SOURCE (unrecogn ized section and content) DATE CREATED AUTHOR 02/19/[address] [facility] DATE CREATED AUTHOR AUTHOR'S ORGANIZ ATION 06/04/2023 [facility] DATE CREATED AUTHOR AUTHOR'S ORGANIZ ATION 03/10/2024 [facility] DATE CREATED AUTHOR AUTHOR'S ORGANIZ ATION 03/21/2024 [facility] FOR RECORDS PERTAINING TO PATIENTS WHO ARE [...] BE BASED ON THE PRIMARY CLINICAL RECORDS. [employer] provides no warranty or guarantee of the accuracy or completeness of information in this document.
== END 2024-03-22 12:32 | disposition home or self-care (01) ==
PROVIDERS: Visit Provider Nurse Practitioner
DX: G90.522 Complex regional pain syndrome I of left lower limb (principal); R11.0 Nausea; R42 Dizziness and giddiness; Z79.891 Long term (current) use of opiate analgesic; M25.572 Pain in left ankle and joints of left foot
CPT/HCPCS: G0463

== ENCOUNTER 2024-05-24 11:26 | Outpatient (OUT) | payer MEDICARE, MEDICAID, SELFPAY ==
--- OUTSIDE RECORDS SUMMARY | 2024-05-24 11:48 | XMS_ITS | CCD ---
Author Organization [facility] Care Team Providers Care College Advisor Name Role Phone Clyde Aguilera Attending Provider Unavailable [facility] Primary Care Provider Un available Leonel Lucas Attending Provider Unavailable Gabriel Rosenberg Unavailable DO Clyde Aguilera Attending Provider [facility] Primary Care Provider LUIS Elliott Emergency Provider [phone] MD Gabriel Rosenberg Attending Provider DO Praveen Pearl Emergency Provider MD Ayan Andrade Emergency Provider [phone] DO Clyde Aguilera Attending Provider [facility] Primary Care Provider DO Praveen Pearl Emergency Provider [phone] MD Ayan Andrade Emergency Provider DIONNE Garcia Attending Provider [phone] MD Gabriel Breaux Jr Emergency Provider [facility] Primary Care Provider ROSEMARIE Cooper-LESLY Tuttle Emergency Provider [facility] Primary Care Provider DO Arnoldo Pérez Emergency Provider [phone] UZAIR CARTER Admitting Unavailable TERRENCE .DR UZAIR Attending Unavailable NICO GOMEZ Consulting Unavailable [facility] Primary Care Unavaila ble HERNANDEZ, DR ARIADNA C Consulting Unavailable LAKSHMIPATHY ., NARENDRANATH Admitting Katerine vailable LAKSHMIPATHY ., NARENDRANATH Attending Katerine vailable [facility] Primary Care Unavaila ble LIGHT ., DR [...] Unavailable CARMEN CARPIO Consulting Unavailable [facility] Primary Care Provider LUIS Sandra Emergency Provider DO Leonel Guerra Emergency Provider Dr. Marcos Gregory Attending Unava ilable MD Gabriel Rosenberg Attending Provider MD Gabriel Breaux Jr Emergency Provider DO Teo Heath Attending Provider [phone] DO Marquise Disla Other Provider [facility] Primary Care Provider LUIS Sandra Emergency Provider [phone] DO John Luu Referring Provider [facility] Primary Care Provider [phone] DO Teo Heath Attending Provider Parentroxy, DO [place] Other Provider DO John Luu Referring Provider DO John Luu Referring Provider [facility] Primary Care Provider [phone] DO Teo Heath Attending Provider Self, Referral Attending Provider Unavailable [facility] Primary Care Provider [phone] DO John Luu Attending Provider [facility] Primary Care Unavaila John Hernandez Admitting Unavailable John Luu Attending Unavailable Marquise Disla Consulting Unavailable [facility] Primary Care Unavaila ble Teo Heath Admitting Unavailable Teo Heath Attending Unavailable [facility] Primary Care Unavaila ble Gabriel Rosenberg Admitting Unavailable Shakira, Gabriel Attending Unavailable Jocy, Agustin Admitting Unavailable Jocy, Agustin Attending Unavailable [facility] Primary Care Unavaila ble [facility] Primary Care Unavaila ble Gabriel Breaux Jr Admitting Unavailable Gabriel Breaux Jr Attending Unavailable Guerra, Leonel Admitting Unavailable Leonel Guerra Attending Unavailable [facility] Primary Care Unavaila ble Jocy, Agustin Admitting Unavailable Jocy, Agustin Attending Unavailable [facility] Primary Care Unavaila ble [facility] Primary Care Unavaila ble Self, Referral Admitting Unavailable Self, Referral Attending Unavailable [facility] Primary Care Unavaila John Hernandez Referring Unavailable Teo Heath Admitting Unavailable Teo Heath Attending Unavailable John Luu Referring Unavailable [facility] Primary Care Unavaila ble Teo Heath Admitting Unavailable Teo Heath Attending Unavailable Gieditis , Andelenita Ch Attending Unavailable Giedraitis , Andrius Ch Attending Unavailable Gieditis , Andelenita Ch Attending Unavailable Unavailable Unavailable Unavailable Allergies Allergy Classification Reported Allergen(s) Allergy Type Date of Onset Reaction(s) Facility (16 sources) cyclobenzaprine ; Translations: [cyclobenzaprin e] Drug Allergy 2 Swelling of Lip/Tongue/Thro at [facility] (19 sources) Naproxen; Translations: [naproxen] Drug Allergy 2 Hives, Unknown [facility] (16 sources) Ondansetron; Translations: [ondansetron] Drug Allergy 2 Swelling of Lip/Tongue/Thro at [facility] (19 sources) Scallop - dietary; Translations: [scallops] Allergy to substance 2 [facility] (5 sources) cyclobenzaprine ; Translations: [Flexeril] Drug Allergy 7 Unknown [facility] (5 sources) Ondansetron; Translations: [Zofran] Drug Allergy 7 Unknown [facility] (2 sources) Naproxen Drug Allergy 7 [facility] (2 sources) Misc-Food; Translations: [Misc-Food] Food allergy (disorder) 7 [facility] Medications Current Medications Medication Drug [...] by mouth three times daily Hydrocodone-Aceta minophen (Marion) 5-325 mg tablet Discontinued 1 TAB PO [...] PO Q8H 63 7 January 19, 2023 1:00am Violet 23rd, 2023 12:34am clomiPHENE citrate 50 mg oral [...] mg/ml oral solution (10 sources) Phenothiazine, Uncompetitive Y-eqgluz-M-aspartate Receptor Antagonist, Sigma-1 Agonist Start: 01-08-2023 End: [...] 1:00am April 18, 2023 12:08pm Prenat 115-Iron Ltn-Nbtje-Dvw ( 19 (With Docusate)) 29 mg iron- 1 mg-25 mg tablet (14 sources) Start: 04-21-2018 End: 04-22-2019 take 1 tablet by mouth once daily Prenat 115-Iron Jvm-Qkmle-Etb ( 19 (With Docusate)) 29 mg iron- 1 mg-25 mg tablet Discontinued 1 TAB PO Daily April 20, 2018 11:00pm April 22, 2019 9:17am Start: 04-21-2018 End: 04-22-2019 take 1 tablet by mouth once daily Prenat 115-Iron Qgj-Xjfiu-Xuq ( 19 (With Docusate)) 29 mg iron- [...] BI limited 03-08 US breast BI limited [place] [address] Ultrasound Report Signed Patient: Loy Tam MR#: [id number] : 1980 Acct:[id number] Age/Sex: 43 / F ADM Date: 03/08/24 Loc: [facility] Room: Type: [facility] Attending Dr: John Luu DO, Resident Ordering [...] M.D.03/08/2024 3:19 PM Dictation Location: [facility] Tech: Dana Paredes Transcribed By: ILIA 03/08/24 1519 Dictated By: Alan Matta II, MD 03/08/24 151 Signed By: 03/08/24 1519 Normal [facility] MM screening mammo BI w/CADo n 12-02-2023 MM screening mammo BI w/CAD [facility] [place] [address] [place] [address] Mammography Report Signed Patient: Loy Tam MR#: [id number] : 1980 Acct:[id number] Age/Sex: 42 / F ADM Date: 12/02/23 Loc: [place] Room: Type: [facility] Attending Dr: Referral Self Copies to: [facility] SELF,REFERRAL Ordering Provider: SELF,REFERRAL [...] M.D.12/02/2023 3:31 PM Dictation Location: [facility] Transcribed By: ILIA 12/02/23 1531 Dictated By: Sarah Mistry MD 12/02/23 1523 Signed By: 12/02/23 1531 Normal [facility] FE PROon 10-07-2023 % Iron Saturation 12.3 % Low 20-50 [facility] Comment on above: Performed By: #### F E PRO, TSH3 #### [address] Ferritin [Mass/Vol] 23.1 ng/mL Normal 11.0-306.8 [facility] Comment on above: Performed By: #### F E PRO, TSH3 #### [facility] [address] [id number] [facility] Iron [Mass/Vol] 48 ug/dL Low 50-212 [facility] Comment on above: Performed By: #### F E PRO, TSH3 #### [facility] [address] [id number] [place] Total Iron Binding Capacity 389 ug/dL Normal 255-450 [facility] Comment on above: Performed By: #### F E PRO, TSH3 #### [facility] [address] [id number] [place] Transferrin [Mass/Vol] 278 mg/dL Normal 203-362 [facility] Comment on above: Performed By: #### F E PRO, TSH3 #### [facility] [address] Ferritin [Mass/volume] in Se rum or PlasmaOrdered By: Teo Heath on 10-07-2023 Ferritin [Mass/Vol] 23.1 ng/mL 11.0-306.8 [facility] Iron [Mass/volume] in Serum or PlasmaOrdered By: Teo Heath on 10-07-2023 Iron [Mass/Vol] 48 ug/dL 50-212 [facility] Iron binding capacity [Mass/ volume] in Serum or PlasmaOrdered By: Teo Heath on 10-07-2023 Iron binding capacity [Mass/Vol] 389 ug/dL 255-450 [facility] Iron saturation [Mass Fracti on] in Serum or PlasmaOrdered By: Teo Heath on 10-07-2023 Iron saturation [Mass fraction] 12.3 % 20-50 [facility] Thyroid Stimulating Hormoneo n 10-07-2023 TSH Qn 0.91 m[IU]/L Normal 0.45-5.33 [facility] Comment on above: Result Comment: PERF ORMED BY: [facility] [address] [place] [address] PATHOLOGIST [employer] GRADER MARTY SALGADO M.D. Performed By: #### F E PRO, TSH3 ####[facility] [id number] Thyrotropin [Units/volume] i n Serum or PlasmaOrdered By: Teo Heath on 10-07-2023 TSH Qn 0.91 m[IU]/L 0.45-5.33 [facility] Transferrin [Mass/volume] in Serum or PlasmaOrdered By: Teo Heath on 10-07-2023 Transferrin [Mass/Vol] 278 mg/dL 203-362 [facility] Alanine aminotransferase [En zymatic activity/volume] in Serum or PlasmaOrdered By: Marquise Disla on 07-13-2023 ALT [Catalytic activity/Vol] 25 U/L 7-52 [facility] Albumin [Mass/volume] in Ser um or Plasma by Bromocresol green (BCG) dye binding methoOrdered By: Marquise Disla on 07-13-2023 Albumin BCG dye [Mass/Vol] 4.2 g/dL 3.5-5.7 [facility] Alkaline phosphatase [Enzyma tic activity/volume] in Serum or PlasmaOrdered By: Marquise Disla on 07-13-2023 ALP [Catalytic activity/Vol] 113 U/L 34-104 [facility] Aspartate aminotransferase [ Enzymatic activity/volume] in Serum or PlasmaOrdered By: Marquise Disla on 07-13-2023 AST [Catalytic activity/Vol] 13 U/L 13-39 [facility] Basophils Auto (Bld) [#/Vol] Ordered By: Marquise Disla on 07-13-2023 Basophils (Bld) [#/Vol] 0.1 10*3/uL 0.0-0.2 [facility] Basophils/100 WBC Auto (Bld) Ordered By: Marquise Disla on 07-13-2023 Basophils/100 WBC (Bld) 1.2 % . [facility] Bilirubin.total [Mass/volume ] in Serum or PlasmaOrdered By: Marquise Disla on 07-13-2023 Bilirubin [Mass/Vol] 0.6 mg/dL 0.3-1.0 [facility] Calcium [Mass/volume] in Ser um or PlasmaOrdered By: Marquise Disla on 07-13-2023 Calcium [Mass/Vol] 9.6 mg/dL 8.6-10.3 [facility] Carbon dioxide, total [Moles /volume] in Serum or PlasmaOrdered By: Marquise Disla on 07-13-2023 CO2 [Moles/Vol] 27.9 mmol/L 21.0-31.0 [facility] Chloride [Moles/volume] in S brian or PlasmaOrdered By: Marquise Disla on 07-13-2023 Chloride [Moles/Vol] 106 mmol/L 98-107 [facility] Cholesterol [Mass/volume] in Serum or PlasmaOrdered By: Marquise Disla on 07-13-2023 Cholesterol [Mass/Vol] 208 mg/dL 140-200 [facility] Comment on above: Chol less than 200 m g/dl low riskChol 201-239 mg/dl borderline riskChol 240 mg/dl and greater high risk Cholesterol in LDL Calc [Mas s/Vol]Ordered By: Marquise Disla on 07-13-2023 Cholesterol in LDL [Mass/Vol] 150 mg/dL 0-100 [facility] Comment on above: LDL ATP III CLASSIFI CATIONLDL less than 100 mg/dL OptimalLDL 100-129 mg/dL Near or above optimalLDL 130-159 mg/dL Borderline highLDL 160-189 mg/dL HighLDL greater than 189 mg/dL Very high Cholesterol in LDL [Mass/vol ume] in Serum or PlasmaOrdered By: Marquise Disla on 07-13-2023 Cholesterol in LDL [Mass/Vol] 171 mg/dL 0-100 [facility] Comment on above: LDL ATP III CLASSIFI CATIONLDL less than 100 mg/dL OptimalLDL 100-129 mg/dL Near or above optimalLDL 130-159 mg/dL Borderline highLDL 160-189 mg/dL HighLDL greater than 189 mg/dL Very high Cholesterol in VLDL Calc [Ma ss/Vol]Ordered By: Marquise Disla on 07-13-2023 Cholesterol in VLDL [Mass/Vol] 17 mg/dL [facility] Complete Blood Count Auto Di ffon 07-13-2023 Basophils (Bld) [#/Vol] 0.1 10*3/uL Normal 0.0-0.2 [facility] Comment on above: Result Comment: PERF ORMED BY: [facility] [address] [place] [address] PATHOLOGIST [employer] GRADER MARTY SALGADO M.D. Performed By: #### B 12, LIPID, CMP, CBC, LDLD ####[facility] [id number] [place] [address] [place] Basophils/100 WBC (Bld) 1.2 % Normal . T javan [facility] Comment on above: Performed By: #### B 12, LIPID, CMP, CBC, LDLD ####[facility] [id number] [place] [address] [facility] Eosinophils (Bld) [#/Vol] 0.3 10*3/uL Normal 0.0-0.45 [facility] Comment on above: Performed By: #### B 12, LIPID, CMP, CBC, LDLD ####[address] Eosinophils/100 WBC (Bld) 3.3 % Normal . [facility] Comment on above: Performed By: #### B 12, LIPID, CMP, CBC, LDLD ####[address] Erythrocyte distribution width (RBC) [Ratio] 16.1 % High 11.9-15.3 [facility] Comment on above: Performed By: #### B 12, LIPID, CMP, CBC, LDLD ####[address] Hematocrit (Bld) [Volume fraction] 39.7 % Normal 34.0-46.4 [facility] Comment on above: Performed By: #### B 12, LIPID, CMP, CBC, LDLD ####[address] Hemoglobin (Bld) [Mass/Vol] 12.8 g/dL Normal 11.8-15.4 [facility] Comment on above: Performed By: #### B 12, LIPID, CMP, CBC, LDLD ####[address] Lymphocytes (Bld) [#/Vol] 3.2 10*3/uL Normal 1.00-4.8 [facility] Comment on above: Performed By: #### B 12, LIPID, CMP, CBC, LDLD ####[address] Lymphocytes/100 WBC (Bld) 31.0 % Normal . [facility] Comment on above: Performed By: #### B 12, LIPID, CMP, CBC, LDLD ####[address] MCH (RBC) [Entitic mass] 23.1 pg Low 24.7-34.3 [facility] Comment on above: Performed By: #### B 12, LIPID, CMP, CBC, LDLD ####[address] MCV (RBC) [Entitic vol] 71.6 fL Low 80-100 [facility] Comment on above: Performed By: #### B 12, LIPID, CMP, CBC, LDLD ####[address] Mean Corpuscular HGB Conc 32.2 g/dL Normal 32.0-35.0 [facility] Comment on above: Performed By: #### B 12, LIPID, CMP, CBC, LDLD ####[address] Monocytes (Bld) [#/Vol] 0.7 10*3/uL Normal 0.0-0.8 [facility] Comment on above: Performed By: #### B 12, LIPID, CMP, CBC, LDLD ####[address] Monocytes/100 WBC (Bld) 6.5 % Normal . [facility] Comment on above: Performed By: #### B 12, LIPID, CMP, CBC, LDLD ####[address] Neutrophils (Bld) [#/Vol] 6.0 10*3/uL Normal 1.8-7.7 [facility] Comment on above: Performed By: #### B 12, LIPID, CMP, CBC, LDLD ####[address] Neutrophils/100 WBC (Bld) 58.0 % Normal . [facility] Comment on above: Performed By: #### B 12, LIPID, CMP, CBC, LDLD ####[address] NRBC% 0.2 /100{WBC} Normal 0-0.5 [facility] Comment on above: Performed By: #### B 12, LIPID, CMP, CBC, LDLD ####[address] Platelet mean volume (Bld) [Entitic vol] 7.2 fL Normal 6.3-10.7 [facility] Comment on above: Performed By: #### B 12, LIPID, CMP, CBC, LDLD ####[address] Platelets (Bld) [#/Vol] 394 10*3/uL Normal 150-450 [facility] Comment on above: Performed By: #### B 12, LIPID, CMP, CBC, LDLD ####[address] RBC (Bld) [#/Vol] 5.55 10*6/uL High 3.60-5.00 [facility] Comment on above: Performed By: #### B 12, LIPID, CMP, CBC, LDLD ####[address] WBC (Bld) [#/Vol] 10.3 10*3/uL Normal 3.8-11.6 [facility] Comment on above: Performed By: #### B 12, LIPID, CMP, CBC, LDLD ####[address] Comprehensive Metabolic Pane susan 07-13-2023 Albumin [Mass/Vol] 4.2 g/dL Normal 3.5-5.7 [facility] Comment on above: Performed By: #### B 12, LIPID, CMP, CBC, LDLD ####[address] Albumin/Globulin [Mass ratio] 1.2 {ratio} Normal [facility] Comment on above: Performed By: #### B 12, LIPID, CMP, CBC, LDLD ####[address] ALP [Catalytic activity/Vol] 113 U/L High 34-104 [facility] Comment on above: Performed By: #### B 12, LIPID, CMP, CBC, LDLD ####[address] ALT [Catalytic activity/Vol] 25 U/L Normal 7-52 [facility] Comment on above: Performed By: #### B 12, LIPID, CMP, CBC, LDLD ####[address] Anion gap [Moles/Vol] 11.4 mmol/L Normal 6.0-15.0 Th e [facility] Comment on above: Performed By: #### B 12, LIPID, CMP, CBC, LDLD ####[address] AST [Catalytic activity/Vol] 13 U/L Normal 13-39 [facility] Comment on above: Performed By: #### B 12, LIPID, CMP, CBC, LDLD ####[address] Bilirubin [Mass/Vol] 0.6 mg/dL Normal 0.3-1.0 [facility] Comment on above: Performed By: #### B 12, LIPID, CMP, CBC, LDLD ####[address] Calcium [Mass/Vol] 9.6 mg/dL Normal 8.6-10.3 [facility] Comment on above: Performed By: #### B 12, LIPID, CMP, CBC, LDLD ####[place] [id number] [facility] Chloride [Moles/Vol] 106 mmol/L Normal 98-107 [facility] Comment on above: Performed By: #### B 12, LIPID, CMP, CBC, LDLD ####[place] [id number] [facility] CO2 [Moles/Vol] 27.9 mmol/L Normal 21.0-31.0 [facility] Comment on above: Performed By: #### B 12, LIPID, CMP, CBC, LDLD ####[place] [id number] [facility] Creatinine [Mass/Vol] 0.69 mg/dL Normal 0.60-1.20 [facility] Comment on above: Performed By: #### B 12, LIPID, CMP, CBC, LDLD ####[place] [id number] [address] GFR/1.73 sq M.predicted MDRD (S/P/Bld) [Vol rate/Area] mL/min/{1.73_m2} Normal [facility] Comment on above: Performed By: #### B 12, LIPID, CMP, CBC, LDLD ####[address] Globulin (S) [Mass/Vol] 3.4 g/dL Normal T he [facility] Comment on above: Performed By: #### B 12, LIPID, CMP, CBC, LDLD ####[address] Glucose [Mass/Vol] 87 mg/dL Normal 70-100 [facility] Comment on above: Result Comment: [facility] Glucose Reference Range is dependent on time and content of last meal. Glucose of more than 200 mg/dL in a nonstressed, ambulatory subject supports the diagnosis of Diabetes Mellitus. ADA recommended reference range Performed By: #### B 12, LIPID, CMP, CBC, LDLD ####[address] Potassium [Moles/Vol] 4.3 mmol/L Normal 3.5-5.1 [facility] Comment on above: Performed By: #### B 12, LIPID, CMP, CBC, LDLD ####[address] Protein [Mass/Vol] 7.6 g/dL Normal 6.4-8.9 [facility] Comment on above: Performed By: #### B 12, LIPID, CMP, CBC, LDLD ####[address] Sodium [Moles/Vol] 141 mmol/L Normal 136-145 [facility] Comment on above: Performed By: #### B 12, LIPID, CMP, CBC, LDLD ####[address] Urea nitrogen [Mass/Vol] 10 mg/dL Normal 7-25 [facility] Comment on above: Performed By: #### B 12, LIPID, CMP, CBC, LDLD ####[facility] [id number] Creatinine [Mass/volume] in Serum or PlasmaOrdered By: Marquise Disla on 07-13-2023 Creatinine [Mass/Vol] 0.69 mg/dL 0.60-1.20 [facility] Eosinophils Auto (Bld) [#/Vo l]Ordered By: Marquise Disla on 07-13-2023 Eosinophils (Bld) [#/Vol] 0.3 10*3/uL 0.0-0.45 [facility] Eosinophils/100 WBC Auto (Bl d)Ordered By: Marquise Disla on 07-13-2023 Eosinophils/100 WBC (Bld) 3.3 % . [facility] Erythrocyte distribution wid th Auto (RBC) [Ratio]Ordered By: Marquise Disla on 07-13-2023 Erythrocyte distribution width (RBC) [Ratio] 16.1 % 11.9-15.3 [facility] Globulin Calc (S) [Mass/Vol] Ordered By: Marquise Disla on 07-13-2023 Globulin (S) [Mass/Vol] 3.4 g/dL [facility] Glucose [Mass/volume] in Ser um or PlasmaOrdered [...] Hematocrit (Bld) [Volume fraction] 39.7 % 34.0-46.4 [facility] Hemoglobin [Mass/volume] in BloodOrdered By: Marquise Disla on 07-13-2023 Hemoglobin (Bld) [Mass/Vol] 12.8 g/dL 11.8-15.4 [facility] LDL Cholesterol Measuredon 0 07-13-2023 LDL Cholesterol Measured 171 mg/dL High 0-100 [facility] Comment on above: Result Comment: LDL ATP III CLASSIFICATION LDL less than 100 mg/dL Optimal LDL 100-129 mg/dL Near or above optimal LDL 130-159 mg/dL Borderline high LDL 160-189 mg/dL High LDL greater than 189 mg/dL Very high Performed By: #### B 12, LIPID, CMP, CBC, LDLD ####[place] [id number] [place] [id number] [facility] Leukocytes [#/volume] correc abdias for nucleated erythrocytes in Blood by Automated counOrdered By: Marquise Disla on 07-13-2023 WBC corrected for nucl RBC Auto (Bld) [#/Vol] 10.3 10*3/uL 3.8-11.6 [facility] Lipid Panelon 07-13-2023 Cholesterol [Mass/Vol] 208 mg/dL High 140-200 Th e [facility] Comment on above: Result Comment: Chol less than 200 mg/dl low risk Chol 201-239 mg/dl borderline risk Chol 240 mg/dl and greater high risk Performed By: #### B 12, LIPID, CMP, CBC, LDLD ####[place] [id number] Cholesterol in HDL [Mass/Vol] 40 mg/dL Normal 23-92 [facility] Comment on above: Result Comment: HDL CHOL ATP-III CLASSIFICATION Cardiovascular Risk HDL > or equal to 60 mg/dL LOW HDL < 40 mg/dL HIGH Performed By: #### B 12, LIPID, CMP, CBC, LDLD ####[place] [id number] [place] [id number] [facility] Cholesterol.total/Candy sterol in HDL [Mass ratio] 5.2 {ratio} Normal <5.0 [facility] Comment on above: Performed By: #### B 12, LIPID, CMP, CBC, LDLD ####[place] [id number] [place] [id number] [facility] LDL Cholesterol,Calculated 150 mg/dL High 0-100 [facility] Comment on above: Result Comment: LDL ATP III CLASSIFICATION LDL less than 100 mg/dL Optimal LDL 100-129 mg/dL Near or above optimal LDL 130-159 mg/dL Borderline high LDL 160-189 mg/dL High LDL greater than 189 mg/dL Very high Performed By: #### B 12, LIPID, CMP, CBC, LDLD ####[facility] [id number] Triglyceride w/Reflex 88 mg/dL Normal 0-149 [facility] Comment on above: Result Comment: TRIG ATP III CLASSIFICATION TRIG less than 150 mg/dL Normal TRIG 150-199 mg/dL Borderline high TRIG 200-500 mg/dL High TRIG greater than 500 mg/dL Very high Standard traceable to the Center for Disease Conrtrol and Prevention (CDC) test method. Performed By: #### B 12, LIPID, CMP, CBC, LDLD ####[facility] VLDL CHOLESTEROL 17 mg/dL Normal [facility] Comment on above: Performed By: #### B 12, LIPID, CMP, CBC, LDLD ####[facility] [id number] Lymphocytes Auto (Bld) [#/Vo l]Ordered By: Marquise Disla on 07-13-2023 Lymphocytes (Bld) [#/Vol] 3.2 10*3/uL 1.00-4.8 [facility] Lymphocytes/100 WBC Auto (Bl d)Ordered By: Marquise Disla on 07-13-2023 Lymphocytes/100 WBC (Bld) 31.0 % . [facility] MCH Auto (RBC) [Entitic mass ]Ordered By: Marquise Disla on 07-13-2023 MCH (RBC) [Entitic mass] 23.1 pg 24.7-34.3 [facility] MCHC Auto (RBC) [Mass/Vol]Or dered By: Marquise Disla on 07-13-2023 MCHC (RBC) [Mass/Vol] 32.2 g/dL 32.0-35.0 [facility] MCV Auto (RBC) [Entitic vol] Ordered By: Marquise Disla on 07-13-2023 MCV (RBC) [Entitic vol] 71.6 fL 80-100 [facility] Monocytes Auto (Bld) [#/Vol] Ordered By: Marquise Disla on 07-13-2023 Monocytes (Bld) [#/Vol] 0.7 10*3/uL 0.0-0.8 [facility] Monocytes/100 WBC Auto (Bld) Ordered By: Marquise Disla on 07-13-2023 Monocytes/100 WBC (Bld) 6.5 % . [facility] Neutrophils Auto (Bld) [#/Vo l]Ordered By: Marquise Disla on 07-13-2023 Neutrophils (Bld) [#/Vol] 6.0 10*3/uL 1.8-7.7 [facility] Neutrophils/100 WBC Auto (Bl d)Ordered By: Marquise Disla on 07-13-2023 Neutrophils/100 WBC (Bld) 58.0 % . [facility] No Panel InformationOrdered By: Marquise Disla on 07-13-2023 Estimated GFR (CKD-EPI) > 60.0 mL/Min [facility] Pharmacy Creatinine Clearance (Chem N/A [facility] Nucleated erythrocytes [Pres ence] in Blood by Automated countOrdered By: Marquise Disla on 07-13-2023 Nucleated RBC Auto Ql (Bld) 0.2 /100{WBC} 0-0.5 [facility] Platelet mean volume Auto (B ld) [Entitic vol]Ordered By: Marquise Disla on 07-13-2023 Platelet mean volume (Bld) [Entitic vol] 7.2 fL 6.3-10.7 [facility] Platelets Auto (Bld) [#/Vol] Ordered By: Marquise Disla on 07-13-2023 Platelets (Bld) [#/Vol] 394 10*3/uL 150-450 [facility] Potassium [Moles/volume] in Serum or PlasmaOrdered By: Marquise Disla on 07-13-2023 Potassium [Moles/Vol] 4.3 mmol/L 3.5-5.1 [facility] Protein [Mass/volume] in Ser um or PlasmaOrdered By: Marquise Disla on 07-13-2023 Protein [Mass/Vol] 7.6 g/dL 6.4-8.9 [facility] RBC Auto (Bld) [#/Vol]Ordere d By: Marquise iDsla on 07-13-2023 RBC (Bld) [#/Vol] 5.55 10*6/uL 3.60-5.00 [facility] Serum or plasma albumin/glob ulin mass ratioOrdered By: Marquise Disla on 07-13-2023 Albumin/Globulin [Mass ratio] 1.2 {ratio} [facility] Serum or plasma anion gap de terminationOrdered By: Marquise Disla on 07-13-2023 Anion gap [Moles/Vol] 11.4 mmol/L 6.0-15.0 [facility] Serum or plasma high density lipoprotein (HDL) cholesterol measurementOrdered By: Marquise Disla on 07-13-2023 Cholesterol in HDL [Mass/Vol] 40 mg/dL 23- [facility] Comment on above: HDL CHOL ATP-III CLA SSIFICATION Cardiovascular RiskHDL > or equal to 60 mg/dL LOWHDL < 40 mg/dL HIGH Serum or plasma total choles terol/high density lipoprotein (HDL) cholesterol mass ratOrdered By: Marquise Disla on 07-13-2023 Cholesterol.total/Candy sterol in HDL [Mass ratio] 5.2 {ratio} <5.0 [facility] Sodium [Moles/volume] in Ser um or PlasmaOrdered By: Marquise Disla on 07-13-2023 Sodium [Moles/Vol] 141 mmol/L 136-145 [facility] Triglyceride [Mass/volume] i n Serum or PlasmaOrdered By: Marquise Disla on 07-13-2023 Triglyceride [Mass/Vol] 88 mg/dL 0-149 [facility] Comment on above: TRIG ATP III CLASSIF ICATIONTRIG less than 150 mg/dL NormalTRIG 150-199 mg/dL Borderline highTRIG 200-500 mg/dL High TRIG greater than 500 mg/dL Very highStandard traceable to the Center for Disease Conrtrol and Prevention (CDC) test method. Urea nitrogen [Mass/volume] in Serum or PlasmaOrdered By: Marquise Disla on 07-13-2023 Urea nitrogen [Mass/Vol] 10 mg/dL 7- [facility] Vitamin B12on 07-13-2023 Cobalamin (Vitamin B12) [Mass/Vol] 324 pg/mL Normal 180-914 [facility] Comment on above: Result Comment: PERF ORMED BY: [facility] [address] [place] [address] PATHOLOGIST [employer] GRADER MARTY SALGADO M.D. Performed By: #### B 12, LIPID, CMP, CBC, LDLD ####[facility] [id number] [place] [id number] [facility] Vitamin B12 ser/plasOrdered By: Marquise Disla on 07-13-2023 Cobalamin (Vitamin B12) [Mass/Vol] 324 pg/mL 180-914 [facility] WBC Auto (Bld) [#/Vol]Ordere d By: Marquise Disla on 07-13-2023 WBC (Bld) [#/Vol] 10.3 10*3/uL 3.8-11.6 [facility] Automated erythrocytes count in urine sediment (number/area)Ordered By: Agustin Sandra on 07-01-2023 RBC Auto (Urine sed) [#/Area] 5-9 [HPF] 0-4 [facility] Automated leukocytes count i n urine sediment (number/area)Ordered By: Agustin Sandra on 07-01-2023 WBC Auto (Urine sed) [#/Area] 0-1 [HPF] 0-4 [facility] Basic Metabolic Panelon Anion gap [Moles/Vol] 11.0 mmol/L Normal 6.0-15.0 [facility] Comment on above: Performed By: #### C BC, BMP ####[place] [id number] [place] [id number] [facility] Calcium [Mass/Vol] 9.3 mg/dL Normal 8.6-10.3 [facility] Comment on above: Performed By: #### C BC, BMP ####[facility] [place] [id number] [facility] Chloride [Moles/Vol] 104 mmol/L Normal 98-107 [facility] Comment on above: Performed By: #### C BC, BMP ####[place] [id number] [place] [id number] [facility] CO2 [Moles/Vol] 27.9 mmol/L Normal 21.0-31.0 [facility] Comment on above: Performed By: #### C BC, BMP ####[place] [id number] [facility] Creatinine [Mass/Vol] 0.79 mg/dL Normal 0.60-1.20 [facility] Comment on above: Performed By: #### C BC, BMP ####[place] [id number] [place] Creatinine Clr Calc Pharmacy 127.26 Normal [facility] Comment on above: Result Comment: PERF ORMED BY: [facility] [address] [place] [address] PATHOLOGIST [employer] P[employer] C[employer] GRADER MARTY SALGADO M.D. Performed By: #### C BC, BMP ####[address] GFR/1.73 sq M.predicted MDRD (S/P/Bld) [Vol rate/Area] mL/min/{1.73_m2} Normal [facility] Comment on above: Performed By: #### C BC, BMP ####[place] [id number] [facility] Glucose [Mass/Vol] 92 mg/dL Normal 70-100 [facility] Comment on above: Result Comment: [place] Glucose Reference Range is dependent on time and content of last meal. Glucose of more than 200 mg/dL in a nonstressed, ambulatory subject supports the diagnosis of Diabetes Mellitus. ADA recommended reference range Performed By: #### C BC, BMP ####[place] [id number] [facility] Potassium [Moles/Vol] 3.9 mmol/L Normal 3.5-5.1 [facility] Comment on above: Performed By: #### C BC, BMP ####[place] [id number] [facility] Sodium [Moles/Vol] 139 mmol/L Normal 136-145 [facility] Comment on above: Performed By: #### C , BMP ####[facility] [place] [address] [facility] Urea nitrogen [Mass/Vol] 7 mg/dL Normal 7-25 [facility] Comment on above: Performed By: #### C BC, BMP ####[facility] [id number] [place] [id number] [facility] Basophils Auto (Bld) [#/Vol] Ordered By: Agustin Sandra on 07-01-2023 Basophils (Bld) [#/Vol] 0.1 10*3/uL 0.0-0.2 [facility] Basophils/100 WBC Auto (Bld) Ordered By: Agustin Sandra on 07-01-2023 Basophils/100 WBC (Bld) 0.6 % . [facility] Bilirubin Test strip Ql (U)O rdered By: Agustin Sandra on 07-01-2023 Bilirubin Ql (U) Negative Negative [facility] Calcium [Mass/volume] in Ser um or PlasmaOrdered By: Agustin Sandra on 07-01-2023 Calcium [Mass/Vol] 9.3 mg/dL 8.6-10.3 [facility] Carbon dioxide, total [Moles /volume] in Serum or PlasmaOrdered By: Agustin Sandra on 07-01-2023 CO2 [Moles/Vol] 27.9 mmol/L 21.0-31.0 [facility] Chloride [Moles/volume] in S brian or PlasmaOrdered By: Agustin Sandra on 07-01-2023 Chloride [Moles/Vol] 104 mmol/L 98-107 [facility] Color Auto (U)Ordered By: Naun Sandra on 07-01-2023 Color (U) Yellow Yellow [facility] Complete Blood Count Auto Di ffon 07-01-2023 Basophils (Bld) [#/Vol] 0.1 10*3/uL Normal 0.0-0.2 [facility] Comment on above: Result Comment: PERF ORMED BY: [facility] [address] [place] [place] [id number] PATHOLOGIST [employer]DR[employer] P[employer] C[employer] GRADER MARTY SALGADO M.D. Performed By: #### C BC, BMP ####[address] Basophils/100 WBC (Bld) 0.6 % Normal . [facility] Comment on above: Performed By: #### C BC, BMP ####[place] [id number] [facility] Eosinophils (Bld) [#/Vol] 0.1 10*3/uL Normal 0.0-0.45 [facility] Comment on above: Performed By: #### C BC, BMP ####[place] [id number] [facility] Eosinophils/100 WBC (Bld) 1.1 % Normal . [facility] Comment on above: Performed By: #### C BC, BMP ####[address] Erythrocyte distribution width (RBC) [Ratio] 16.1 % High 11.9-15.3 [facility] Comment on above: Performed By: #### C BC, BMP ####[address] Hematocrit (Bld) [Volume fraction] 38.1 % Normal 34.0-46.4 [facility] Comment on above: Performed By: #### C BC, BMP ####[address] Hemoglobin (Bld) [Mass/Vol] 12.3 g/dL Normal 11.8-15.4 [facility] Comment on above: Performed By: #### C BC, BMP ####[place] [id number] [facility] Lymphocytes (Bld) [#/Vol] 0.7 10*3/uL Low 1.00-4.8 [facility] Comment on above: Performed By: #### C BC, BMP ####[place] [id number] [facility] Lymphocytes/100 WBC (Bld) 8.1 % Normal . [facility] Comment on above: Performed By: #### C BC, BMP ####[address] MCH (RBC) [Entitic mass] 23.0 pg Low 24.7-34.3 [facility] Comment on above: Performed By: #### C BC, BMP ####[address] MCV (RBC) [Entitic vol] 71.2 fL Low 80-100 [facility] Comment on above: Performed By: #### C BC, BMP ####[address] Mean Corpuscular HGB Conc 32.3 g/dL Normal 32.0-35.0 [facility] Comment on above: Performed By: #### C BC, BMP ####[address] Monocytes (Bld) [#/Vol] 0.7 10*3/uL Normal 0.0-0.8 [facility] Comment on above: Performed By: #### C BC, BMP ####[address] Monocytes/100 WBC (Bld) 24.10 % High 0.00-20.00 [facility] Comment on above: Result Comment: For adults in ED, MDW > 20.0 may be associated with a higher risk of sepsis during the first 12 hrs of hospital admission Performed By: #### C BC, BMP ####[address] Monocytes/100 WBC (Bld) 8.5 % Normal . [facility] Comment on above: Performed By: #### C BC, BMP ####[address] Neutrophils (Bld) [#/Vol] 6.7 10*3/uL Normal 1.8-7.7 [facility] Comment on above: Performed By: #### C BC, BMP ####[address] Neutrophils/100 WBC (Bld) 81.7 % Normal . [facility] Comment on above: Performed By: #### C LESLY, BMP ####[address] NRBC% 0.0 /100{WBC} Normal 0-0.5 [facility] Comment on above: Performed By: #### C LESLY, BMP ####[address] Platelet mean volume (Bld) [Entitic vol] 7.4 fL Normal 6.3-10.7 [facility] Comment on above: Performed By: #### C LESLY, BMP ####[address] Platelets (Bld) [#/Vol] 320 10*3/uL Normal 150-450 [facility] Comment on above: Performed By: #### C LESLY, BMP ####[address] RBC (Bld) [#/Vol] 5.35 10*6/uL High 3.60-5.00 [facility] Comment on above: Performed By: #### C LESLY, BMP ####[address] WBC (Bld) [#/Vol] 8.2 10*3/uL Normal 3.8-11.6 [facility] Comment on above: Performed By: #### C LESLY, BMP ####[address] Creatinine [Mass/volume] in Serum or PlasmaOrdered By: Agustin Sandra on 07-01-2023 Creatinine [Mass/Vol] 0.79 mg/dL 0.60-1.20 [facility] Dipstick and Microscopicon 0 07-01-2023 Appearance (U) Cloudy Critically abnormal Clear [facility] Comment on above: Order Comment: Name Collection Type:: Clean-Voided Midstream Performed By: #### A EMORYONUADONNA, CG #### [address] Bacteria,Urine None Seen Normal None Seen [facility] Comment on above: Order Comment: Name Collection Type:: Clean-Voided Midstream Performed By: #### A DDONUAPLUS, UHCG #### [place] [address] [place] Bilirubin,Urine Negative Normal Negative [facility] Comment on above: Order Comment: Name Collection Type:: Clean-Voided Midstream Performed By: #### A DDONUAPLUS, UHCG #### [address] Color (U) Yellow Normal Yellow [facility] Comment on above: Order Comment: Name Collection Type:: Clean-Voided Midstream Performed By: #### A DDONUAPLUS, UHCG #### [address] Glucose Ql (U) Normal Normal Normal [facility] Comment on above: Order Comment: Name Collection Type:: Clean-Voided Midstream Performed By: #### A DDONUAPLUS, UHCG #### [place] [address] [place] Hyaline Casts,Urine None Seen Normal 0-8 [facility] Comment on above: Order Comment: Name Collection Type:: Clean-Voided Midstream Performed By: #### A DDONUAPLUS, UHCG #### [place] [address] [place] Ketones Ql (U) Negative Normal Negative [facility] Comment on above: Order Comment: Name Collection Type:: Clean-Voided Midstream Performed By: #### A DDONUAPLUS, UHCG #### [place] [address] [place] Leukocyte esterase Test strip Ql (U) Negative Normal Negative [facility] Comment on above: Order Comment: Name Collection Type:: Clean-Voided Midstream Performed By: #### A DDONUAPLUS, UHCG #### [address] [address] [place] Nitrite,Urine Negative Normal Negative [facility] Comment on above: Order Comment: Name Collection Type:: Clean-Voided Midstream Performed By: #### A DDONUAPLUS, UHCG #### [address] Occult Blood,Urine Trace High Negative [facility] Comment on above: Order Comment: Name Collection Type:: Clean-Voided Midstream Performed By: #### A DDONUAPLUS, UHCG #### [address] pH (U) 8.5 [pH] Normal 5.0-9.0 [facility] Comment on above: Order Comment: Name Collection Type:: Clean-Voided Midstream Performed By: #### A DDONUAPLUS, UHCG #### [address] Protein,Urine Negative Normal Negative [facility] Comment on above: Order Comment: Name Collection Type:: Clean-Voided Midstream Performed By: #### A DDONUAPLUS, UHCG #### [address] RBC,Urine 5-9 High 0-4 [facility] Comment on above: Order Comment: Name Collection Type:: Clean-Voided Midstream Performed By: #### A DDONUAPLUS, UHCG #### [place] [address] [place] Specificy [place],Urine 1.012 Normal 1.001-1.030 [facility] Comment on above: Order Comment: Name Collection Type:: Clean-Voided Midstream Performed By: #### A DDONUAPLUS, UHCG #### [place] [address] [place] Squamous Epithelial Cell,Urine 0-1 Normal 0-2 [facility] Comment on above: Order Comment: Name Collection Type:: Clean-Voided Midstream Performed By: #### A DDONUAPLUS, UHCG #### [address] Urobilinogen,Urine Normal Normal Normal [facility] Comment on above: Order Comment: Name Collection Type:: Clean-Voided Midstream Performed By: #### A DDONUAPLUS, CG #### [facility] [address] WBC LM.HPF (Urine sed) [#/Area] 0 /[HPF] Normal 0-4 [facility] Comment on above: Order Comment: Name Collection Type:: Clean-Voided Midstream Performed By: #### A DDONUAPLUS, CG #### [address] Eosinophils Auto (Bld) [#/Vo l]Ordered By: Agustin Sandra on 07-01-2023 Eosinophils (Bld) [#/Vol] 0.1 10*3/uL 0.0-0.45 [facility] Eosinophils/100 WBC Auto (Bl d)Ordered By: Agustin Sandra on 07-01-2023 Eosinophils/100 WBC (Bld) 1.1 % . [facility] Erythrocyte distribution wid th Auto (RBC) [Ratio]Ordered By: Agustin Sandra on 07-01-2023 Erythrocyte distribution width (RBC) [Ratio] 16.1 % 11.9-15.3 [facility] Glucose [Mass/volume] in Ser um or PlasmaOrdered [...] 07-01-2023 HCG ( test) Ql (U) Negative [facility] HCG,Urineon 07-01-2023 Beta HCG ( test) Ql (U) Negative Normal [facility] Comment on above: Order Comment: Name Collection Type:: Clean-Voided Midstream Result Comment: PERF ORMED BY: [place] [address] PATHOLOGIST [employer]DROOM P[employer]IC CARD GRADER MARTY SALGADO M.D. Performed By: #### A DDPAPIUADONNA, [facility] #### [address] Hematocrit Auto (Bld) [Volum e fraction]Ordered By: Agustin Sandra on 07-01-2023 Hematocrit (Bld) [Volume fraction] 38.1 % 34.0-46.4 [facility] Hemoglobin [Mass/volume] in BloodOrdered By: Agustin Sandra on 07-01-2023 Hemoglobin (Bld) [Mass/Vol] 12.3 g/dL 11.8-15.4 [facility] Ketones Auto test strip (U) [Mass/Vol]Ordered By: Agustin Sandra on 07-01-2023 Ketones (U) [Mass/Vol] Negative Negative [facility] - UrinalysisOrder ed By: Agustin Sandra on 07-01-2023 Hyaline casts LM Ql (Urine sed) None seen [LPF] 0-8 [facility] Leukocytes [#/volume] correc abdias for nucleated erythrocytes in Blood by Automated counOrdered By: Agustin Sandra on 07-01-2023 WBC corrected for nucl RBC Auto (Bld) [#/Vol] 8.2 10*3/uL 3.8-11.6 [facility] Lymphocytes Auto (Bld) [#/Vo l]Ordered By: Agustin Sandra on 07-01-2023 Lymphocytes (Bld) [#/Vol] 0.7 10*3/uL 1.00-4.8 [facility] Lymphocytes/100 WBC Auto (Bl d)Ordered By: Agustin Sandra on 07-01-2023 Lymphocytes/100 WBC (Bld) 8.1 % . [facility] MCH Auto (RBC) [Entitic mass ]Ordered By: Agustin Sandra on 07-01-2023 MCH (RBC) [Entitic mass] 23.0 pg 24.7-34.3 [facility] MCHC Auto (RBC) [Mass/Vol]Or dered By: Agustin Sandra on 07-01-2023 MCHC (RBC) [Mass/Vol] 32.3 g/dL 32.0-35.0 [facility] MCV Auto (RBC) [Entitic vol] Ordered By: Agustin Sandra on 07-01-2023 MCV (RBC) [Entitic vol] 71.2 fL 80-100 [facility] Monocyte distribution width [Entitic volume] in Blood by AutomatedOrdered By: Agustin Sandra on 07-01-2023 Monocyte distribution width Auto (Bld) [Entitic vol] 24.10 % 0.00-20.00 [facility] Comment on above: For adults in ED, MD W > 20.0 may be associated with a higher risk of sepsis during the first 12 hrs of hospital admission Monocytes Auto (Bld) [#/Vol] Ordered By: Agustin Sandra on 07-01-2023 Monocytes (Bld) [#/Vol] 0.7 10*3/uL 0.0-0.8 [facility] Monocytes/100 WBC Auto (Bld) Ordered By: Agustin Sandra on 07-01-2023 Monocytes/100 WBC (Bld) 8.5 % . [facility] Neutrophils Auto (Bld) [#/Vo l]Ordered By: Agustin Sandra on 07-01-2023 Neutrophils (Bld) [#/Vol] 6.7 10*3/uL 1.8-7.7 [facility] Neutrophils/100 WBC Auto (Bl d)Ordered By: Agustin Sandra on 07-01-2023 Neutrophils/100 WBC (Bld) 81.7 % . [facility] Nitrite Test strip Ql (U)Ord ered By: Agustin Sandra on 07-01-2023 Nitrite Ql (U) Negative Negative [facility] No Panel InformationOrdered By: Agustin Sandra on 07-01-2023 Estimated GFR (CKD-EPI) > 60.0 mL/Min [facility] Creatinine Clearance (Chem 127.26 [facility] Nucleated erythrocytes [Pres ence] in Blood by Automated countOrdered By: Agustin Sandra on 07-01-2023 Nucleated RBC Auto Ql (Bld) 0.0 /100{WBC} 0-0.5 [facility] Platelet mean volume Auto (B ld) [Entitic vol]Ordered By: Agustin Sandra on 07-01-2023 Platelet mean volume (Bld) [Entitic vol] 7.4 fL 6.3-10.7 [facility] Platelets Auto (Bld) [#/Vol] Ordered By: Agustin Sandra on 07-01-2023 Platelets (Bld) [#/Vol] 320 10*3/uL 150-450 [facility] Potassium [Moles/volume] in Serum or PlasmaOrdered By: Agustin Sandra on 07-01-2023 Potassium [Moles/Vol] 3.9 mmol/L 3.5-5.1 [facility] Protein Auto test strip (U) [Mass/Vol]Ordered By: Agustin Sandra on 07-01-2023 Protein (U) [Mass/Vol] Negative Negative [facility] RBC Auto (Bld) [#/Vol]Ordere d By: Agustin Sandra on 07-01-2023 RBC (Bld) [#/Vol] 5.35 10*6/uL 3.60-5.00 [facility] Serum or plasma anion gap de terminationOrdered By: Agustin Sandra on 07-01-2023 Anion gap [Moles/Vol] 11.0 mmol/L 6.0-15.0 [facility] Sodium [Moles/volume] in Ser um or PlasmaOrdered By: Agustin Sandra on 07-01-2023 Sodium [Moles/Vol] 139 mmol/L 136-145 [facility] Specific gravity Auto test s trip (U) [Rel density]Ordered By: Agustin Sandra on 07-01-2023 Specific gravity (U) [Rel density] 1.012 1.001-1.030 [facility] Squamous epithelial cells de tection in urine sediment by light microscopyOrdered By: Agustin Sandra 07-01-2023 Epithelial cells.squamous LM Ql (Urine sed) 0-1 [HPF] 0-2 [facility] Urea nitrogen [Mass/volume] in Serum or PlasmaOrdered By: Agustin Sandra on 07-01-2023 Urea nitrogen [Mass/Vol] 7 mg/dL 7-25 [facility] Urine bacteria detection by automated methodOrdered By: Agustin Sandra on 07-01-2023 Bacteria Auto Ql (U) None seen None Seen [facility] Urine clarity by refractomet ry automatedOrdered By: Agustin Sandra on 07-01-2023 Clarity Refractometry automated (U) Cloudy Clear [facility] Urine glucose measurement by automated test strip (mass/volume)Ordered By: Agustin Sandra on 07-01-2023 Glucose Auto test strip (U) [Mass/Vol] Normal mg/dL Normal [facility] Urine hemoglobin detection b y automated test stripOrdered By: Agustin Sandra on 07-01-2023 Hemoglobin Auto test strip Ql (U) Trace Negative [facility] Urine leukocyte esterase det ection by automated test stripOrdered By: Agustin Sandra on 07-01-2023 Leukocyte esterase Auto test strip Ql (U) Negative Negative [facility] Urobilinogen Auto test strip (U) [Mass/Vol]Ordered By: Agustin Sandra on 07-01-2023 Urobilinogen (U) [Mass/Vol] Normal mg/dL Normal [facility] WBC Auto (Bld) [#/Vol]Ordere d By: Agustin Sandra on 07-01-2023 WBC (Bld) [#/Vol] 8.2 10*3/uL 3.8-11.6 [facility] pH Auto test strip (U)Ordere d By: Agustin Sandra on 07-01-2023 pH (U) 8.5 [pH] 5.0-9.0 [facility] CT head/brain wo [facility] 06-19 CT head/[place] [address] CT Scan Report Signed Patient: Loy Tam MR#: [id number] : 1980 Acct:[id number] Age/Sex: 42 / F ADM Date: 06/18/23 Loc: ER Room: Type: [facility] ER Attending Dr: Copies to: Princess Guevara [...] Alan Matta M.D.06/19/2023 10:48 AM Dictation Location: [place] [address] Transcribed By: [facility] 06/19/23 1048 Dictated By: Alan Matta II, MD 06/19/23 104 Signed By: 06/19/23 1048 Normal [facility] XR shoulder LT min 2V*on XR shoulder LT min 2V* [facility] [place] [address] XRay Report Signed Patient: Loy Tam MR#: [id number] : 1980 Acct:[id number] Age/Sex: 42 / F ADM Date: 06/18/23 Loc: ER Room: Type: [facility] ER Attending Dr: Copies to: Princess Guevara [...] Alan Matta M.D.06/19/2023 10:53 AM Dictation Location: [place] [address] Transcribed By: [facility] 06/19/23 1053 Dictated By: Alan Matta II, MD 06/19/23 1049 Signed By: 06/19/23 1053 Normal [facility] ECG 12 lead ECGon 06-18-2023 ECG 12 [place] [address] Electrocardiograph Report Signed Patient: Loy Tam MR#: [id number] : 1980 Acct:[id number] Age/Sex: 42 / F ADM Date: 06/18/23 Loc: ER Room: Type: [facility] ER Attending Dr: Ordering Provider: Gabriel Breaux [...] was found Confirmed by GABRIEL BREAUX MD ([id number]) on 06/19/2023 3:14:16 AM Referred By: Electronically Signed By:GABRIEL BREAUX MD Transcribed By: MUS Signed By Gabriel Breaux Jr, MD [id number] Normal [facility] XR wrist LT min 3V*on 2022 XR wrist LT min 3V* [facility] Main [address] [address] XRay Report Signed Patient: Loy Tam MR#: [id number] : 1980 Acct:[id number] Age/Sex: 42 / F ADM Date: 06/14/23 Loc: SOXD [facility]: [facility]: Gabriel Rosenberg MD Copies to: [...] Mendenhall Jr., D.O.06/14/2023 2:35 PM Dictation Location: [place] [address] Transcribed By: [facility] 06/14/23 1435 Dictated By: Marquise Mendenhall Jr, DO 06/14/23 1432 Signed By: 06/14/23 1435 Normal [facility] NM priyanka perf SPECT rest stron 06-07-2023 NM priyanka perf SPECT rest str [facility] Main [place] [id number] Nuclear Medicine Report Signed Patient: Loy Tam MR#: [id number] : 1980 Acct:[id number] Age/Sex: 42 / F ADM Date: 05/30/23 Loc: ER Room: Type: [facility] ER Attending Dr: Copies to: DO Arnoldo [...] 1147 Signed By: 06/07/23 1253 Normal [facility] STR cardiac stress/lexiscano n 06-03-2023 STR cardiac stress/lexiscan [facility] [address] Cardiac Stress Test Signed Patient: Loy Tam MR#: [id number] : 1980 Acct:[id number] Age/Sex: 42 / F ADM Date: 05/30/23 Loc: ER Room: Type: [facility] ER Attending Dr: Copies to: DO Magy Hansen MD, [facility] Ordering Provider: Leonel Guerra DO Date of [...] reported separately by Nuclear Cardiology. Transcribed By: NTS 06/03/232034 Dictated By: Magy Donis MD, [facility] 06/03/23 1742 Signed By: 06/06/23 0911 Normal [facility] Basic Metabolic Panelon 07-0 Anion gap [Moles/Vol] 10.2 mmol/L Normal 6.0-15.0 [facility] Comment on above: Performed By: #### C BC, HS TROP, BMP #### [facility] [address] Calcium [Mass/Vol] 9.1 mg/dL Normal 8.6-10.3 [facility] Comment on above: Performed By: #### C BC, HS TROP, BMP #### [facility] [address] Chloride [Moles/Vol] 106 mmol/L Normal 98-107 [facility] Comment on above: Performed By: #### C BC, HS TROP, BMP #### [facility] [address] CO2 [Moles/Vol] 29.3 mmol/L Normal 21.0-31.0 [facility] Comment on above: Performed By: #### C BC, HS TROP, BMP #### [facility] [address] [place] [address] [place] Creatinine [Mass/Vol] 0.87 mg/dL Normal 0.60-1.20 [facility] Comment on above: Performed By: #### C BC, HS TROP, BMP #### [facility] [address] [place] [address] [place] Creatinine Clr Calc Pharmacy 112.72 Normal [facility] Comment on above: Result Comment: PERF ORMED BY: [place] [address] PATHOLOGIST [employer]ADER MARTY SALGADO M.D. Performed By: #### C BC, HS TROP, BMP #### [facility] [address] [place] [address] [place] GFR/1.73 sq M.predicted MDRD (S/P/Bld) [Vol rate/Area] mL/min/{1.73_m2} Normal [facility] Comment on above: Performed By: #### C BC, HS TROP, BMP #### [facility] [address] Glucose [Mass/Vol] 91 mg/dL Normal 70-100 [facility] Comment on above: Result Comment: [place] Glucose Reference Range is dependent on time and content of last meal. Glucose of more than 200 mg/dL in a nonstressed, ambulatory subject supports the diagnosis of Diabetes Mellitus. ADA recommended reference range Performed By: #### C BC, HS TROP, BMP #### [facility] [address] Potassium [Moles/Vol] 3.5 mmol/L Normal 3.5-5.1 [facility] Comment on above: Performed By: #### C BC, HS TROP, BMP #### [facility] [address] Sodium [Moles/Vol] 142 mmol/L Normal 136-145 [facility] Comment on above: Performed By: #### C BC, HS TROP, BMP #### [facility] [address] Urea nitrogen [Mass/Vol] 9 mg/dL Normal 7-25 [facility] Comment on above: Performed By: #### C BC, HS TROP, BMP #### [facility] [address] [place] [address] [place] Basophils Auto (Bld) [#/Vol] Ordered By: Leonel Guerra on 05-31-2023 Basophils (Bld) [#/Vol] 0.1 10*3/uL 0.0-0.2 [facility] Basophils/100 WBC Auto (Bld) Ordered By: Leonel Guerra on 05-31-2023 Basophils/100 WBC (Bld) 1.5 % . [facility] Calcium [Mass/volume] in Ser um or PlasmaOrdered By: Leonel Guerra on 05-31-2023 Calcium [Mass/Vol] 9.1 mg/dL 8.6-10.3 [facility] Carbon dioxide, total [Moles /volume] in Serum or PlasmaOrdered By: Leonel Guerra on 05-31-2023 CO2 [Moles/Vol] 29.3 mmol/L 21.0-31.0 [facility] Chloride [Moles/volume] in S brian or PlasmaOrdered By: Leonel Guerra on 05-31-2023 Chloride [Moles/Vol] 106 mmol/L 98-107 [facility] Complete Blood Count Auto Di ffon 05-31-2023 Basophils (Bld) [#/Vol] 0.1 10*3/uL Normal 0.0-0.2 [facility] Comment on above: Result Comment: PERF ORMED BY: [place] [address] PATHOLOGIST [employer] GRADER MARTY SALGADO M.D. Performed By: #### C BC, HS TROP, BMP #### [address] Basophils/100 WBC (Bld) 1.5 % Normal . T [facility] Comment on above: Performed By: #### C BC, HS TROP, BMP #### [place] [address] [place] Eosinophils (Bld) [#/Vol] 0.3 10*3/uL Normal 0.0-0.45 [facility] Comment on above: Performed By: #### C BC, HS TROP, BMP #### [address] Eosinophils/100 WBC (Bld) 3.5 % Normal . [facility] Comment on above: Performed By: #### C BC, HS TROP, BMP #### [address] Erythrocyte distribution width (RBC) [Ratio] 16.2 % High 11.9-15.3 [facility] Comment on above: Performed By: #### C BC, HS TROP, BMP #### [address] Hematocrit (Bld) [Volume fraction] 38.8 % Normal 34.0-46.4 [facility] Comment on above: Performed By: #### C BC, HS TROP, BMP #### [address] Hemoglobin (Bld) [Mass/Vol] 12.4 g/dL Normal 11.8-15.4 [facility] Comment on above: Performed By: #### C BC, HS TROP, BMP #### [address] Lymphocytes (Bld) [#/Vol] 3.7 10*3/uL Normal 1.00-4.8 [facility] Comment on above: Performed By: #### C BC, HS TROP, BMP #### [address] Lymphocytes/100 WBC (Bld) 37.9 % Normal . [facility] Comment on above: Performed By: #### C BC, HS TROP, BMP #### [address] MCH (RBC) [Entitic mass] 23.0 pg Low 24.7-34.3 [facility] Comment on above: Performed By: #### C BC, HS TROP, BMP #### [address] MCV (RBC) [Entitic vol] 72.0 fL Low 80-100 T [facility] Comment on above: Performed By: #### C BC, HS TROP, BMP #### [address] Mean Corpuscular HGB Conc 31.9 g/dL Low 32.0-35.0 [facility] Comment on above: Performed By: #### C BC, HS TROP, BMP #### [address] Monocytes (Bld) [#/Vol] 0.5 10*3/uL Normal 0.0-0.8 [facility] Comment on above: Performed By: #### C BC, HS TROP, BMP #### [place] [address] [place] Monocytes/100 WBC (Bld) 18.79 % Normal 0.00-20.00 T javan [facility] Comment on above: Performed By: #### C BC, HS TROP, BMP #### [address] Monocytes/100 WBC (Bld) 5.1 % Normal . [facility] Comment on above: Performed By: #### C BC, HS TROP, BMP #### [address] Neutrophils (Bld) [#/Vol] 5.1 10*3/uL Normal 1.8-7.7 [facility] Comment on above: Performed By: #### C BC, HS TROP, BMP #### [address] Neutrophils/100 WBC (Bld) 52.0 % Normal . [facility] Comment on above: Performed By: #### C BC, HS TROP, BMP #### [address] NRBC% 0.2 /100{WBC} Normal 0-0.5 [facility] Comment on above: Performed By: #### C BC, HS TROP, BMP #### [address] Platelet mean volume (Bld) [Entitic vol] 7.3 fL Normal 6.3-10.7 [facility] Comment on above: Performed By: #### C BC, HS TROP, BMP #### [address] Platelets (Bld) [#/Vol] 349 10*3/uL Normal 150-450 [facility] Comment on above: Performed By: #### C BC, HS TROP, BMP #### [address] RBC (Bld) [#/Vol] 5.39 10*6/uL High 3.60-5.00 [facility] Comment on above: Performed By: #### C BC, HS TROP, BMP #### [address] [place] [address] [place] WBC (Bld) [#/Vol] 9.9 10*3/uL Normal 3.8-11.6 [facility] Comment on above: Performed By: #### C BC, HS TROP, BMP #### [facility] [address] [place] [address] Creatinine [Mass/volume] in Serum or PlasmaOrdered By: Leonel Guerra on 05-31-2023 Creatinine [Mass/Vol] 0.87 mg/dL 0.60-1.20 [facility] ECG 12 lead ECGon 05-31-2023 ECG 12 lead ECG [facility] Main [place] [address] [place] [address] Electrocardiograph Report Signed Patient: Loy Tam MR#: [id number] : 1980 Acct:[id number] Age/Sex: 42 / F ADM Date: 05/30/23 Loc: ER Room: Type: [facility] ER Attending Dr: Ordering Provider: Leonel Guerra [...] was found Confirmed by LEONEL GUERRA DO ([id number]) on 05/31/2023 2:06:12 AM Referred By: Electronically Signed By:LEONEL GUERRA DO Transcribed By: MUS Signed By Leonel Guerra DO 05/31 0206 Normal [facility] Eosinophils Auto (Bld) [#/Vo l]Ordered By: Leonel Guerra on 05-31-2023 Eosinophils (Bld) [#/Vol] 0.3 10*3/uL 0.0-0.45 [facility] Eosinophils/100 WBC Auto (Bl d)Ordered By: Leonel Guerra on 05-31-2023 Eosinophils/100 WBC (Bld) 3.5 % . [facility] Erythrocyte distribution wid th Auto (RBC) [Ratio]Ordered By: Leonel Guerra on 05-31-2023 Erythrocyte distribution width (RBC) [Ratio] 16.2 % 11.9-15.3 [facility] Glucose [Mass/volume] in Ser um or PlasmaOrdered [...] Hematocrit (Bld) [Volume fraction] 38.8 % 34.0-46.4 [facility] Hemoglobin [Mass/volume] in BloodOrdered By: Leonel Guerra on 05-31-2023 Hemoglobin (Bld) [Mass/Vol] 12.4 g/dL 11.8-15.4 [facility] Leukocytes [#/volume] correc abdias for nucleated erythrocytes in Blood by Automated counOrdered By: Leonel Guerra on 05-31-2023 WBC corrected for nucl RBC Auto (Bld) [#/Vol] 9.9 10*3/uL 3.8-11.6 [facility] Lymphocytes Auto (Bld) [#/Vo l]Ordered By: Leonel Guerra on 05-31-2023 Lymphocytes (Bld) [#/Vol] 3.7 10*3/uL 1.00-4.8 [facility] Lymphocytes/100 WBC Auto (Bl d)Ordered By: Leonel Guerra on 05-31-2023 Lymphocytes/100 WBC (Bld) 37.9 % . [facility] MCH Auto (RBC) [Entitic mass ]Ordered By: Leonel Guerra on 05-31-2023 MCH (RBC) [Entitic mass] 23.0 pg 24.7-34.3 [facility] MCHC Auto (RBC) [Mass/Vol]Or dered By: Leonel Guerra on 05-31-2023 MCHC (RBC) [Mass/Vol] 31.9 g/dL 32.0-35.0 [facility] MCV Auto (RBC) [Entitic vol] Ordered By: Leonel Guerra on 05-31-2023 MCV (RBC) [Entitic vol] 72.0 fL 80-100 [facility] Monocyte distribution width [Entitic volume] in Blood by AutomatedOrdered By: Leonel Guerra on 05-31-2023 Monocyte distribution width Auto (Bld) [Entitic vol] 18.79 % 0.00-20.00 [facility] Monocytes Auto (Bld) [#/Vol] Ordered By: Leonel Guerra on 05-31-2023 Monocytes (Bld) [#/Vol] 0.5 10*3/uL 0.0-0.8 [facility] Monocytes/100 WBC Auto (Bld) Ordered By: Leonel Guerra on 05-31-2023 Monocytes/100 WBC (Bld) 5.1 % . [facility] Neutrophils Auto (Bld) [#/Vo l]Ordered By: Leonel Guerra on 05-31-2023 Neutrophils (Bld) [#/Vol] 5.1 10*3/uL 1.8-7.7 [facility] Neutrophils/100 WBC Auto (Bl d)Ordered By: Leonel Guerra on 05-31-2023 Neutrophils/100 WBC (Bld) 52.0 % . [facility] No Panel InformationOrdered By: Leonel Guerra on 05-31-2023 Estimated GFR (CKD-EPI) > 60.0 mL/Min [facility]acy Creatinine Clearance (Chem 112.72 [facility] Nucleated erythrocytes [Pres ence] in Blood by Automated countOrdered By: Leonel Guerra on 05-31-2023 Nucleated RBC Auto Ql (Bld) 0.2 /100{WBC} 0-0.5 [facility] Platelet mean volume Auto (B ld) [Entitic vol]Ordered By: Leonel Guerra on 05-31-2023 Platelet mean volume (Bld) [Entitic vol] 7.3 fL 6.3-10.7 [facility] Platelets Auto (Bld) [#/Vol] Ordered By: Leonel Guerra on 05-31-2023 Platelets (Bld) [#/Vol] 349 10*3/uL 150-450 [facility] Potassium [Moles/volume] in Serum or PlasmaOrdered By: Leonel Guerra on 05-31-2023 Potassium [Moles/Vol] 3.5 mmol/L 3.5-5.1 [facility] RBC Auto (Bld) [#/Vol]Ordere d By: Leonel Guerra on 05-31-2023 RBC (Bld) [#/Vol] 5.39 10*6/uL 3.60-5.00 [facility] Serum or plasma anion gap de terminationOrdered By: Leonel Guerra on 05-31-2023 Anion gap [Moles/Vol] 10.2 mmol/L 6.0-15.0 [facility] Sodium [Moles/volume] in Ser um or PlasmaOrdered By: Leonel Guerra on 05-31-2023 Sodium [Moles/Vol] 142 mmol/L 136-145 [facility] Troponin I High Sensitivityo n 05-31-2023 Troponin I High Sensitivity 5.9 pg/mL Normal 0.0-15.0 [facility] Comment on above: Result Comment: PERF ORMED BY: [facility] [address] [place] [address] PATHOLOGIST [employer] GRADER MARTY SALGADO M.D. Performed By: #### H S TROP ####[facility] [id number] [place] [id number] [facility] Troponin I High Sensitivity 6.5 pg/mL Normal 0.0-15.0 [facility] Comment on above: Result Comment: PERF ORMED BY: [facility] [address] [place] [address] PATHOLOGIST [employer] GRADER MARTY SALGADO M.D. Performed By: #### C BC, HS TROP, BMP #### [facility] [address] [place] [id number] [facility] Troponin I.cardiac [Mass/vol ume] in Serum or Plasma by Detection limit <= 0.01 ng/Ordered By: Leonel Guerra on 05-31-2023 Troponin I.cardiac DL <= 0.01 ng/mL [Mass/Vol] 5.9 pg/mL 0.0-15.0 [facility] Urea nitrogen [Mass/volume] in Serum or PlasmaOrdered By: Leonel Guerra on 05-31-2023 Urea nitrogen [Mass/Vol] 9 mg/dL 7- [facility] WBC Auto (Bld) [#/Vol]Ordere d By: Leonel Guerra on 05-31-2023 WBC (Bld) [#/Vol] 9.9 10*3/uL 3.8-11.6 [facility] XR chest 2V*on 05-31-2023 XR chest 2V* [facility] Main [address] [address] XRay Report Signed Patient: Loy Tam MR#: [id number] : 1980 Acct:[id number] Age/Sex: 42 / F ADM Date: 05/30/23 Loc: ER Room: Type: [facility] ER Attending Dr: Copies to: Leonel Guerra [...] Ancelmo Castellano M.D.05/31/2023 8:23 AM Dictation Location: [place] [address] Transcribed By: [facility] 05/31/23822 Dictated By: Ancelmo Castellano DO 05/31/23822 Signed By: 05/31/23822 Normal [facility] XR wrist LT min 3V*on 2022 XR wrist LT min 3V* [facility] Main [address] [address] XRay Report Signed Patient: Loy Tam MR#: [id number] : 1980 Acct:[id number] Age/Sex: 42 / F ADM Date: 04/18/23 [...] Alan Matta M.D.04/18/2023 1:04 PM Dictation Location: [place] [address] Transcribed By: [facility] 04/18/23 1304 Dictated By: Alan Matta II, MD 04/18/23 1302 Signed By: 04/18/23 1304 Normal [facility] Serum heterophile antibody d etection by latex agglutinationOrdered By: Arnoldo Pérez on 01-19-2023 Heterophile Ab LA Ql (S) Negative Negative [facility] Streptococcus pyogenes antig en detectionOrdered By: Arnoldo Pérez on 01-19-2023 S. pyogenes Ag Ql (Unsp spec) [facility] COVID CepheidOrdered By: Radha Cooper on 01-08-2023 SARS-CoV-2 (COVID-19) Ab IA Ql Negative Negative [facility] Comment on above: This is a duplicate Cepheid Xpert Xpress CoV-2/Flu/RSV Plus RNA by RT-PCR result to be used for statistical tracking purpose only. SARS-CoV-2 (COVID-19) RNA AMBROSE+probe Ql (Unsp spec) [facility] Streptococcus pyogenes antig en detectionOrdered By: Caitlyn Cooper on 01-04-2023 S. pyogenes Ag Ql (Unsp spec) [facility] COVID CepheidOrdered By: Cachorro Breaux on 11-17-2022 SARS-CoV-2 (COVID-19) Ab IA Ql Negative Negative [facility] Comment on above: This is a duplicate Cepheid Xpert Xpress CoV-2/Flu/RSV Plus RNA by RT-PCR result to be used for statistical tracking purpose only. SARS-CoV-2 (COVID-19) RNA AMBRSOE+probe Ql (Unsp spec) [facility] SARS-CoV-2 (COVID-19) RNA AMBROSE+probe Ql (Unsp spec) [facility] COVID-19 SOFIAOrdered By: Jose Pearl on 08-23-2022 SARS-CoV+SARS-CoV-2 (COVID-19) Ag IA.rapid Ql (Resp) Negative Negative [facility] Comment on above: This is a duplicate Lilibeth SARS Antigen (REGINO) result to be used for statistical tracking purpose only. No Panel InformationOrdered By: Praveen Pearl on 08-23-2022 SARS Antigen (LFIA) [facility] POINT OF CARE GLUCOSEon 05-0 Glucose [Mass/Vol] 116 mg/dL Critically high 74-106 [facility] Comment on above: Performed By: #### P OCGLUC #### [facility] [address] [place] [address] [address] Mai Salamanca PREG HCG QUALon 03-30-2022 , QUAL Negative Normal NEGATIVE [facility] Comment on above: Performed By: #### P REG #### [facility] [address] [place], [place] [address] Dr. Mai Salamanca Vital Signs Date Time Vital Sign Value Performing Clinician Facility 07-01-2023 11:53-0400 Diastolic blood pressure 85 mm[Hg] [facility] [employer] Work Phone: [facility] 07-01-2023 11:53-0400 Heart rate 92 /min [facility] Work Phone: [facility] 07-01-2023 11:53-0400 Systolic blood pressure 149 mm[Hg] [facility] Work Phone: [facility] 07-01-2023 09:37-0400 Body height 176.53 cm [facility] Work Phone: [facility] 07-01-2023 09:37-0400 Body temperature 99.3 [degF] [facility] Work Phone: [facility] 07-01-2023 09:37-0400 Body weight 122.46 kg [facility] Work Phone: [facility] 07-01-2023 09:37-0400 Respiratory rate 24 /min [facility] Work Phone: [facility] 07-01-2023 09:37-0400 SaO2% (BldA) [Mass fraction] 99 % [facility] Work Phone: [facility] 06-19-2023 00:00-0400 Diastolic blood pressure 61 mm[Hg] [facility] Work Phone: [facility] 06-19-2023 00:00-0400 Heart rate 71 /min [facility] Work Phone: [facility] 06-19-2023 00:00-0400 Respiratory rate 20 /min [facility] Work Phone: [facility] 06-19-2023 00:00-0400 SaO2% (BldA) [Mass fraction] 100 % [facility] Work Phone: [facility] 06-19-2023 00:00-0400 Systolic blood pressure 129 mm[Hg] [facility] Work Phone: [facility] 06-18-2023 21:21-0400 Body height 175.26 cm [facility] Work Phone: [facility] 06-18-2023 21:21-0400 Body weight 117.02 kg [facility] Work Phone: [facility] 06-18-2023 21:20-0400 Body temperature 98.6 [degF] [facility] Work Phone: [facility] 06-03-2023 11:58-0400 Diastolic blood pressure 90 mm[Hg] [facility] Work Phone: [facility] 06-03-2023 11:58-0400 Heart rate 91 /min [facility] Work Phone: [facility] 06-03-2023 11:58-0400 Systolic blood pressure 145 mm[Hg] [facility] Work Phone: [facility] 05-31-2023 04:30-0400 Diastolic blood pressure 82 mm[Hg] [facility] Work Phone: [facility] 05-31-2023 04:30-0400 Heart rate 75 /min [facility] Work Phone: [facility] 05-31-2023 04:30-0400 Respiratory rate 20 /min [facility] Work Phone: [facility] 05-31-2023 04:30-0400 SaO2% (BldA) [Mass fraction] 98 % [facility] Work Phone: [facility] 05-31-2023 04:30-0400 Systolic blood pressure 150 mm[Hg] [facility] Work Phone: [facility] 05-30-2023 23:32-0400 Body height 176.53 cm [facility] Work Phone: [facility] 05-30-2023 23:32-0400 Body temperature 98.2 [degF] [facility] Work Phone: [facility] 05-30-2023 23:32-0400 Body weight 117.02 kg [facility] Work Phone: [facility] 04-18-2023 12:10-0400 Body temperature 98.2 [degF] [facility] Work Phone: [facility] 04-18-2023 12:10-0400 Diastolic blood pressure 91 mm[Hg] [facility] Work Phone: [facility] 04-18-2023 12:10-0400 Heart rate 86 /min [facility] Work Phone: [facility] 04-18-2023 12:10-0400 Respiratory rate 18 /min [facility] Work Phone: [facility] 04-18-2023 12:10-0400 SaO2% (BldA) [Mass fraction] 100 % [facility] Work Phone: [facility] 04-18-2023 12:10-0400 Systolic blood pressure 169 mm[Hg] [facility] Work Phone: [facility] 04-18-2023 12:06-0400 Body height 175.26 cm [facility] Work Phone: [facility] 04-18-2023 12:06-0400 Body weight 129.1 kg [facility] Work Phone: [facility] 01-19-2023 09:40-0500 Diastolic blood pressure 67 mm[Hg] [facility] Work Phone: [facility] 01-19-2023 09:40-0500 Heart rate 86 /min [facility] Work Phone: [facility] 01-19-2023 09:40-0500 Respiratory rate 20 /min [facility] Work Phone: [facility] 01-19-2023 09:40-0500 SaO2% (BldA) [Mass fraction] 100 % [facility] Work Phone: [facility] 01-19-2023 09:40-0500 Systolic blood pressure 145 mm[Hg] [facility] Work Phone: [facility] 01-19-2023 07:19-0500 Body height 175.26 cm [facility] Work Phone: [facility] 01-19-2023 07:19-0500 Body temperature 98 [degF] [facility] Work Phone: [facility] 01-19-2023 07:19-0500 Body weight 127.3 kg [facility] Work Phone: [facility] 01-08-2023 14:52-0500 Body height 176.53 cm [facility] Work Phone: [facility] 01-08-2023 14:52-0500 Body temperature 98.9 [degF] [facility] Work Phone: [facility] 01-08-2023 14:52-0500 Body weight 124.45 kg [facility] Work Phone: [facility] 01-08-2023 14:52-0500 Diastolic blood pressure 74 mm[Hg] [facility] Work Phone: [facility] 01-08-2023 14:52-0500 Heart rate 93 /min [facility] Work Phone: [facility] 01-08-2023 14:52-0500 Respiratory rate 20 /min [facility] Work Phone: [facility] 01-08-2023 14:52-0500 SaO2% (BldA) [Mass fraction] 98 % [facility] Work Phone: [facility] 01-08-2023 14:52-0500 Systolic blood pressure 143 mm[Hg] [facility] Work Phone: [facility] 01-04-2023 11:34-0500 Body height 175.26 cm [facility] Work Phone: [facility] 01-04-2023 11:34-0500 Body temperature 98.7 [degF] [facility] Work Phone: [facility] 01-04-2023 11:34-0500 Body weight 107.9 kg [facility] Work Phone: [facility] 01-04-2023 11:34-0500 Diastolic blood pressure 91 mm[Hg] [facility] Work Phone: [facility] 01-04-2023 11:34-0500 Heart rate 98 /min [facility] Work Phone: [facility] 01-04-2023 11:34-0500 Respiratory rate 18 /min [facility] Work Phone: [facility] 01-04-2023 11:34-0500 SaO2% (BldA) [Mass fraction] 100 % [facility] Work Phone: [facility] 01-04-2023 11:34-0500 Systolic blood pressure 165 mm[Hg] [facility] Work Phone: [facility] 11-17-2022 02:32-0500 Diastolic blood pressure 98 mm[Hg] [facility] Work Phone: [facility] 11-17-2022 02:32-0500 Heart rate 92 /min [facility] Work Phone: [facility] 11-17-2022 02:32-0500 Respiratory rate 18 /min [facility] Work Phone: [facility] 11-17-2022 02:32-0500 SaO2% (BldA) [Mass fraction] 98 % [facility] Work Phone: [facility] 11-17-2022 02:32-0500 Systolic blood pressure 168 mm[Hg] [facility] Work Phone: [facility] 11-16-2022 23:12-0500 Body height 176.53 cm [facility] Work Phone: [facility] 11-16-2022 23:12-0500 Body weight 126.35 kg [facility] Work Phone: [facility] 11-16-2022 23:11-0500 Body temperature 98.1 [degF] [facility] Work Phone: [facility] 09-17-2022 23:07-0400 Body height 175.26 cm [facility] Work Phone: [facility] 09-17-2022 23:07-0400 Body temperature 98.2 [degF] [facility] [employer] Work Phone: [facility] 09-17-2022 23:07-0400 Body weight 124.25 kg Services [facility] [facility] Work Phone: [facility] 09-17-2022 23:07-0400 Diastolic blood pressure 70 mm[Hg] Services [facility] Work Phone: [facility] 09-17-2022 23:07-0400 Heart rate 75 /min [facility] Work Phone: [facility] 09-17-2022 23:07-0400 Respiratory rate 18 /min [facility] Work Phone: [facility] 09-17-2022 23:07-0400 SaO2% (BldA) [Mass fraction] 94 % Services [facility] Work Phone: [facility] 09-17-2022 23:07-0400 Systolic blood pressure 153 mm[Hg] [facility] [employer] Work Phone: [facility] 08-23-2022 07:17-0400 Body height 175.26 cm DO Clyde Visci Work Phone: [facility] 08-23-2022 07:17-0400 Body temperature 98.2 [degF] DO Clyde Visci Work Phone: [facility] 08-23-2022 07:17-0400 Body weight 110.22 kg DO Clyde Visci Work Phone: [facility] 08-23-2022 07:17-0400 Diastolic blood pressure 75 mm[Hg] DO Clyde Visci Work Phone: [facility] 08-23-2022 07:17-0400 Heart rate 83 /min DO Clyde Visci Work Phone: [facility] 08-23-2022 07:17-0400 Respiratory rate 18 /min DO Clyde Visci Work Phone: [facility] 08-23-2022 07:17-0400 SaO2% (BldA) [Mass fraction] 100 % DO Clyde Visci Work Phone: [facility] 08-23-2022 07:17-0400 Systolic blood pressure 145 mm[Hg] DO Clyde Visci Work Phone: [facility] 07-13-2022 12:00-0400 Body height 175.26 cm Gabriel Olexa Other [facility] [employer] Other 07-13-2022 12:00-0400 Body mass index (BMI) [Ratio] 39.13 kg/m2 Gabriel Olexa Other [facility] [employer] Other 07-13-2022 12:00-0400 Body weight 120.2 kg Gabriel Olexa Other [employer] [facility] [employer] Other 07-06-2022 21:44-0400 Body height 176.53 cm DO Clyde Visci Work Phone: [facility] 07-06-2022 21:44-0400 Body weight 112.49 kg DO Clyde Visci Work Phone: [facility] 07-06-2022 21:43-0400 Body temperature 98.2 [degF] DO Clyde Visci Work Phone: [facility] 07-06-2022 21:43-0400 Diastolic blood pressure 72 mm[Hg] DO Clyde Visci Work Phone: [facility] 07-06-2022 21:43-0400 Heart rate 93 /min DO Clyde Visci Work Phone: [facility] 07-06-2022 21:43-0400 Respiratory rate 17 /min DO Clyde Visci Work Phone: [facility] 07-06-2022 21:43-0400 SaO2% (BldA) [Mass fraction] 100 % DO Clyde Aguilera Work Phone: [facility] 07-06-2022 21:43-0400 Systolic blood pressure 135 mm[Hg] DO Clyde Aguilera Work Phone: [facility] 2019 13:18-0500 BMI (Body Mass Index) 40.2 kg/m2 [facility] 2019 13:18-0500 Body Temperature 98.2 [degF] [facility] 2019 13:18-0500 Body weight 127.3 kg [facility] 2019 13:18-0500 BP Diastolic 81 mm[Hg] [facility] 2019 13:18-0500 BP Systolic 143 mm[Hg] [facility] 2019 13:18-0500 Height 177.8 cm [facility] 2019 13:18-0500 Pulse (Heart Rate) 88 /min [facility] 2019 13:18-0500 Pulse Oximetry 99 % [facility] 2019 13:18-0500 Respiratory Rate 17 /min [facility] Encounters Encounter Date Encounter Type Care Provider Facility Start: 03-12-2024 End: 03-13-2024 ambulatory Alfie Dixon MD Facility: [facility] Start: 03-08-2024 End: 03-08-2024 ambulatory [facility] Facility:[facility] Start: 03-08-2024 End: 03-08-2024 ambulatory Services [facility] Work Phone: [facility] Work Phone: Start: 03-08-2024 End: 03-08-2024 Patient encounter procedure Services [facility] Work Phone: [facility] for [facility] Car Start: 02-27-2024 End: 02-28-2024 ambulatory Alfie Dixon MD Facility:[facility] Start: 02-06-2024 End: 02-07-2024 ambulatory Alfie Dixon MD Facility:[facility] Start: 12-02-2023 End: 12-02-2023 ambulatory [facility] Facility:[facility] Start: 12-02-2023 End: 12-02-2023 ambulatory [facility] Work Phone: [facility] Work Phone: Start: 12-02-2023 End: 12-02-2023 Patient encounter procedure [facility] Work Phone: [facility] Work Phone: Start: 10-07-2023 End: 10-07-2023 ambulatory Services [facility] Facility:[facility] Start: 10-07-2023 End: 10-07-2023 ambulatory [facility] Work Phone: [facility] Work Phone: Start: 10-07-2023 End: 10-07-2023 Patient encounter procedure [facility] Work Phone: [facility] [place] Work Phone: Start: 08-09-2023 End: 08-09-2023 ambulatory [facility] Facility:[facility] Start: 08-09-2023 End: 08-09-2023 ambulatory [facility] Work Phone: [facility] Work Phone: Start: 08-09-2023 End: 08-09-2023 Patient encounter procedure [facility] Work Phone: [facility]-Electrodiagnostics Work Phone: Start: 07-13-2023 End: 07-13-2023 ambulatory Marquise Disla Facility:[facility] Start: 07-13-2023 End: 07-13-2023 ambulatory [facility] Work Phone: [facility] Work Phone: Start: 07-13-2023 End: 07-13-2023 Patient encounter procedure [facility] Work Phone: [facility] [place] Work Phone: Start: 07-01-2023 End: 07-01-2023 Emergency department patient visit Agustin Sandra Facility:[facility] Start: 07-01-2023 End: 07-01-2023 Emergency department patient visit [facility] Work Phone: [facility]Emergency [facility] Work Phone: Start: 06-18-2023 End: 06-19-2023 Emergency department patient visit Services [facility] Facility:[facility] Start: 06-18-2023 End: 06-19-2023 Emergency department patient visit [facility] Work Phone: [facility]Emer[facility] Work Phone: Start: 06-14-2023 Office outpatient visit 15 minutes [facility] Start: 06-14-2023 End: 06-14-2023 ambulatory Services [facility] [employer] Other Start: 06-14-2023 End: 06-14-2023 Patient encounter procedure [facility] Work Phone: [facility] [place] [facility] Start: 06-03-[address] Marcos Gregory Facility:[id number] Start: 05-31-2023 End: 05-31-2023 Emergency department patient visit Leonel Guerra Facility:[facility] Start: 05-30-2023 End: 05-31-2023 Emergency department patient visit [facility] Work Phone: [facility] Work Phone: Start: 05-12-2023 ambulatory NARENDRANJAIMEE LAKSHMIPATHY . Facility:[facility] Start: 04-18-2023 End: 04-18-2023 Emergency department patient visit Agustin Sandra Facility:[facility] Start: 04-18-2023 End: 04-18-2023 Emergency department patient visit [facility] Work Phone: [facility] Work Phone: Start: 02-10-2023 End: 02-11-[address] UZAIR LIGHT . Facility:[facility] Start: 01-19-2023 End: 01-19-2023 Emergency department patient visit [facility] Work Phone: [facility] Work Phone: Start: 01-08-2023 End: 01-08-2023 Emergency department patient visit [facility] Work Phone: [facility]Emergency [facility] Work Phone: Start: 01-04-2023 End: 01-04-2023 Emergency department patient visit [facility] Work Phone: [facility] Work Phone: Start: 11-16-2022 End: 11-17-2022 Emergency department patient visit [facility] Work Phone: [facility]Emergency [facility] Start: 11-04-2022 End: 11-05-[address] UZAIR LIGHT . Facility:[facility] Start: 10-12-2022 End: 10-12-2022 Patient encounter procedure [facility] Work Phone: [facility] Start: 09-17-2022 End: 09-18-2022 Emergency department patient visit [facility] Work Phone: [facility]-Emergency Room Start: 08-23-2022 End: 08-23-2022 Emergency department patient visit DO Clyde Visci Work Phone: [facility]-Emergency Room Start: 08-18-2022 End: 08-18-2022 Patient encounter procedure DO Clyde Visci Work Phone: [facility]-MRI [address] Start: 07-13-2022 End: 07-13-2022 ambulatory Gabriel Rosenberg Other [employer] Other Start: 07-13-2022 Office outpatient ne w 45 minutes Gabriel Rosenberg [facility] Start: 07-08-2022 End: 07-09-[address] UZAIR LIGHT . Facility:[facility] Start: 07-06-2022 End: 07-06-2022 Emergency department patient visit DO Clyde Aguilera Work Phone: [facility]-Emergency Room Start: 04-15-2022 End: 04-16-[address] UZAIR LIGHT . Facility:[facility] Start: 03-30-2022 End: 03-30-[address] UZAIR LIGHT . Facility:[facility] Start: 01-08-2020 End: 01-08-2020 Patient encounter procedure Clyde Visci -Ultrasound [address] [place] Start: 2019 End: 2019 Emergency department patient visit Clyde Visci -Emergency Room Start: 09-17-2019 End: 09-17-2019 Emergency department patient visit Clyde Visci -Emergency Room Start: 12-26-2018 End: 12-26-2018 Patient encounter procedure Clyde Visci -XRay [address] Start: 02-02-2005 Evaluation and management of inpatient Clyde Visci -[facility] Post Procedures Date Procedure Procedure Detail Performing Clinician Start: 03-08-2024 Ultrasonography of b ilateral breasts Services [employer] Phone: Start: 12-02-2023 Screening mammograph y of bilateral breasts Services [employer] Phone: Start: 06-18-2023 CT of head without contrast Services [employer] Phone: Start: 06-18-2023 Plain X-ray of left shoulder Services [employer] Phone: Start: 06-14-2023 Plain X-ray of left wrist Services [employer] Phone: Start: 06-03-2023 Radionuclide myocard ial perfusion stress study Services [employer] Phone: Start: 05-31-2023 Plain chest X-ray Servi rachel [employer] Phone: Start: 04-18-2023 Plain X-ray of left wrist Services [employer] Phone: Start: 01-19-2023 Streptococcus pyogen es antigen assay Services [employer] Phone: Start: 01-08-2023 SARS-CoV-2, Influenz a & RSV (PCR) Services [employer] Work Phone: Start: 01-04-2023 Streptococcus pyogen es antigen assay Services [employer] Phone: Start: 11-17-2022 SARS-CoV-2, Influenz a & RSV (PCR) Services [employer] Phone: Start: 10-12-2022 X-ray of left ankle Ser vices [employer] Phone: Start: 08-18-2022 MRI of right knee DO Estrella mayo [facility] Work Phone: Start: 07-06-2022 Plain X-ray of left wrist DO Clyde Visci Work Phone: Start: 07-06-2022 X-ray of right knee DO Clyde Visci Work Phone: Start: 01-08-2020 Duplex scan of lower limb veins Clyde Raoi Start: 2019 X-ray of left ankle Giovanni hard [facility] H/O: section S/P DO Estrella mayo [facility] Work Phone: SARS Antigen (LFIA) DO Karen fowler [facility] Work Phone: SARS-CoV-2, Influenz a & RSV (PCR) Services [employer] Phone: Plan of Treatment Date Care Activity Detail Author Start: 06-18-2023 CT of head without contrast CT head/ brain wo con [facility] Start: 06-18-2023 CT Unspecified body region WO contrast [facility] Start: 06-18-2023 Plain X-ray of left shoulder XR shoulder LT min 2V* [facility] Start: 06-18-2023 XR Shoulder - left Views [facility] Start: 05-31-2023 [facility] Start: 05-31-2023 Plain chest X-ray XR chest 2V* [facility] Start: 05-31-2023 XR Chest 2 Views [facility] Cardiovascular stres s testing [facility] Patient Education [facility] Patient referral [facility] Immunizations Immunization Date Immunization Notes Care Provider Fa cility 12-10-2018 tetanus toxoid, redu nissa diphtheria toxoid, and acellular pertussis vaccine, adsorbed Clyde Visci [facility] Payers Date Payer Category Payer Medicare 2023 Self-pay [id number] 2022 Medicaid [id number] 1978 Unknown [id number] [id number] 93 1978 Unknown [id number] 2.16.840.1.609135.3.579.2.5 93 1978 Unknown [id number] 2.16.840.1.450243.3.579.2.5 93 1978 Unknown [id number] 2.16.840.1.998920.3.579.2.5 93 1978 Unknown [id number] 2.16.840.1.396230.3.579.2.5 93 1978 Unknown [id number] 2.16.840.1.314038.3.579.2.5 93 1978 Unknown [id number] 2.16.840.1.661220.3.579.2.3 56 1978 Unknown [id number] 2.16.840.1.688573.3.579.2.1 96 1978 Unknown [id number] 2.16.840.1.683990.3.579.2.1 1978 Unknown [id number] 2.16.840.1.893980.3.579.2.1 1959 Medicare [id number] 1959 Unknown [id number] [id number] Private Health Insurance [id number] Unknown Self Pay [id number] Unknown Regular Auto/Liability [id number] Unknown [id number] 2.16840.1.568937.3.579.2.5 31 Unknown [id number] 2.840.1.668204.3.579.2.5 31 Unknown [id number] 2.16840.1.345995.3.579.2.5 31 Unknown [id number] 2.16.840.1.919290.3.579.2.5 31 Unknown [id number] 2.16.840.1.588240.3.579.2.5 31 Unknown [id number] 2.16840.1.184431.3.579.2.5 31 Unknown [id number] 2.840.1.891254.3.579.2.5 31 Unknown [id number] 2.16840.1.428363.3.579.2.5 31 Unknown [id number] 2.16840.1.802752.3.579.2.5 31 Unknown [id number] 2.16840.1.503654.3.579.2.5 31 Social History Date Type Detail Facility Start: 2019 End: 01-19-2023 Tobacco smoking status NVIS Ex-smoker (finding) [facility] Start: 1980 Sex Assigned At Female F [facility] Sex Assigned At Sex Assigned At Bir th [employer] Other Start: 07-06-2022 End: 07-01-2023 Tobacco smoking status NHIS Never smoked tobacco (finding) [facility] Goals Date Patient Goal Desired Activity /State [...] We also discussed a carpal tunnel release. [employer] Other 03-16-2023 NoteCONSULTATION CONSULTATION DATE: 02/10/2023 HISTORY: [...] in three months' time, unless otherwise indicated.[id number] Hospital Discharge instructions Additional Instructions Take the [...] fever difficulty breathing vomiting or any other [facility] Work Phone: [phone]) 517-668812-08-2022 NoteCONSULTATION CONSULTATION DATE: 11/04/2022 HISTORY OF PRESENT [...] 20-30 a week. Patient does work at [employer] and is on her foot a lot. [...] Patient agrees with the plan of care.[facility] [id number] Evaluation note* Encounter Date Diagnosis Assessment Notes Treatment Notes Treatment Clinical Notes Jun, Acute pain of right knee (ICD-10 - M25.561) Jun, Synovial cyst of left wrist (ICD-10 - M71.332) Xrays were reviewed wt patient in detail. We discussed splinting the [...] tolerated the injection well without adverse reaction. [employer] Other 08-11-2022 NoteCONSULTATION CONSULTATION DATE: 07/08/2022 HISTORY [...] pending appointment with Dr. Rosenberg, Orthopedic in [place] next week. 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 She is on her feet a lot and has recently experienced left lower extremity swelling. Overall, the patient felt that's some pressure has been released with this recent sympathetic block. Current medications include gabapentin 200 mg a.m., 200 mg noon and 400 mg at dusk, Percocet 5/325 t.i.d., Vistaril and a vitamin complex. The patient does continue to go to physical therapy at [facility] in [place]. Activities that aggravate her pain are standing, [...] of care and would like to proceed. [facility] Signed and Approved by: NICO GARCIAS . 04/19/2022 15:06:00[facility] noteNo assessment information availableMer[facility] [...] tunnel release 2020 Hospitalization History see surgeries [place] Other Hospital Discharge instructions Additional Instructions Tylenol every 4 hours as needed for pain Return if symptoms are worse Watch for signs of infection Follow-up with your nailbed salon and get the false nail removed tomorrow [facility] Work Phone: Hospital Discharge instructions Additional Instructions Follow-up with your primary care doctor Return to ED if develop worsening symptoms or [facility] Phone: Hospital Discharge instructions Additional Instructions I am not able to prescribe you any pain medication as you have a current prescription for Percocet.[facility] Work Phone: Advance Directives No Advanced [...] FOR VISIT (unrecogniz ed section and content) [facility] [place] [facility]ST CYST RT KNE E PAIN WXLeft Wrist Pain, Right Carpal Tunnel SyndromeLeft Wrist Pain, Right Carpal Tunnel Syndrome Care Teams (unrecognized sec tion and content) Team Status: Active Member Role Status [facility] Primary Care Provider Active Team Status: Active Member Role Status Breana Aguilera DO Attending Provider Active Team Status: Inactive Member Role Status [facility] Primary Care Provider Active Agustin Sandra APRN Emergency Provider Active Team Status: Inactive Member Role Status [facility] Primary Care Provider Active Leonel Guerra DO Emergency Provider Active Team Status: Inactive Member Role Status [facility] Primary Care Provider Active Marissa Elliott APRN Emergency Provider Active Team Status: Inactive Member Role Status [facility] Primary Care Provider Active Praveen Pearl DO Emergency Provider Active Team Status: Inactive Member Role Status [facility] Primary Care Provider Active Gabriel Rosenberg MD Attending Provider Active Team Status: Inactive Member Role Status [facility] Primary Care Provider Active Ayan Andrade MD Emergency Provider Active Team Status: Inactive Member Role Status [facility] Primary Care Provider Active Gabriel Breaux Jr, MD Emergency Provider Active Team Status: Inactive Member Role Status [facility] Primary Care Provider Active Abner Garcia DPM MS Attending Provider Active Team Status: Inactive Member Role Status [facility] Primary Care Provider Active MELISSA MylesP- Emergency Provider Active Team Status: Inactive Member Role Status [facility] Primary Care Provider Active Arnoldomattie Pérez , DO Emergency Provider Active Team Status: Inactive Member Role Status [facility] Primary Care Provider Active Gabriel Breaux Jr, MD Emergency Provider Active Princess Guevara MD RES Active Team Status: Inactive Member Role Status [facility] Primary Care Provider Active Teo Heath , DO Attending Provider Active Marquise Disla , DO RES Other Provider Active Team Status: Inactive Member Role Status [facility] Primary Care Provider Active Teo Heath , DO Attending Provider Active John Luu , DO RES Referring Provider Active Team Status: Inactive Member Role Status [facility] Primary Care Provider Active Referral Self Attending Provider Active Team Status: Active Member Role Status Dates Clyde Aguilera , DO Attending Provider Active Sta rt: February 02, 2005 Team Status: Inactive Member Role Status [facility] Primary Care Provider Active Start: March 08, 2024 End: March 08, 2024 John Luu , DO RES Attending Provider Active Start: March 08, 2024 End: March 08, 2024 Goals (unrecognized section and content) Goals may be documented in a n alternate section INFORMATION SOURCE (unrecogn ized section and content) DATE CREATED AUTHOR 02/19/2023 [facility] DATE CREATED AUTHOR AUTHOR'S ORGANIZ ATION 06/04/2023 [facility] DATE CREATED AUTHOR AUTHOR'S ORGANIZ ATION 03/10/2024 [facility] DATE CREATED AUTHOR AUTHOR'S ORGANIZ ATION 03/21/2024 [facility] FOR RECORDS PERTAINING TO PATIENTS WHO [...] BE BASED ON THE PRIMARY CLINICAL RECORDS. [email or web address] provides no warranty or guarantee of the accuracy or completeness of information in this document.
--- NOTE | 2024-05-24 12:02 | P.CN_ITS ---
Consult Note: HPI Data of Consult Patient: known to practice within the last 3 years Consult date: 02/06/24 Requesting Physician: Shonda Jeffery NP Primary Care Provider: [facility] Consult Narrative Reason for consult: left foot pain Narrative: 43yof who presents for assessment. she notes persistence of significant left lower extremity pain as a consequence of her 33 foot surgeries. states that she is trying to avoid any further surgeries, if at all possible. has now been able to work, but still has significant left foot pain. utilizes percocet and gabapentin, which provides some relief. has undergone a variety of physical therapy sessions, with minimal lasting benefit. denies adverse med side effects. recent left lumbar sympathetic block x2 resulted in 0% improvement. At last visit we discussed SCS trial for CRPS type 1 of LLE, patient is interested in the trial in a few months when she can take time off of work. cc:: CC: Shonda Jeffery NP Review of Systems ROS Status of ROS 10 or more systems reviewed and unremark able except as noted in history and below Musculoskeletal Reports: neck pain, extremity pain and extremity swelling PFSH PFSH Medical History Anxiety ?F41.9 - Anxiety disorder, unspecified (ICD-10) Osteoarthritis ?M19.90 - Unspecified osteoarthritis, unspecified site (ICD-10) Low back pain ?M54.50 - Low back pain, unspecified (ICD-10) Anemia ?D64.9 - Anemia, unspecified (ICD-10) Obesity ?E66.9 - Obesity, unspecified (ICD-10) Acid reflux ?K21.9 - Gastro-esophageal reflux disease without esophagitis (ICD-10) Asthma ?J45.909 - Unspecified asthma, uncomplicated (ICD-10) Hypertension ?I10 - Essential (primary) hypertension (ICD-10) Surgical History H/O foot surgery ?Z98.890 - Other specified postprocedural states (ICD-10) H/O carpal tunnel repair ?Z98.890 - Other specified postprocedural states (ICD-10) History of delivery ?Z98.891 - History of uterine scar from previous surgery (ICD-10) Meds Home Medications and Allergies Home Medications ?Medication ?Instructions ?Recorded ?Confirmed ?Type ascorbic acid (vitamin C) 500 mg 500 mg PO BID 05/06/23 03/12/24 History tablet aspirin 325 mg tablet 325 mg PO DAILY 05/06/23 03/12/24 History ferrous sulfate 325 mg (65 mg 325 mg PO DAILY 05/06/23 03/12/24 History iron) tablet gabapentin 100 mg capsule 200 mg PO .every evening 05/06/23 03/12/24 History gabapentin 300 mg capsule 300 mg PO BID 05/06/23 03/12/24 History hydroxyzine pamoate 25 mg capsule 25 mg PO TID 05/06/23 03/12/24 History lidocaine 5 % topical kit 1 applic topical DAILY 05/06/23 03/12/24 History promethazine 25 mg tablet 25 mg PO Q12H PRN nausea and 05/06/23 03/12/24 History vomiting pyridoxine (vitamin B6) 100 mg 100 mg PO BID 05/06/23 03/12/24 History tablet vitamin B complex (B 1 tab PO DAILY 05/06/23 03/12/24 History Complex-Vitamin B12 tablet) zinc sulfate 50 mg zinc (220 mg) 50 mg PO DAILY 05/06/23 03/12/24 History capsule oxycodone-acetaminophen 5 mg-325 1 tab PO QID PRN pain #120 tabs 04/18/24 Rx mg tablet (Percocet) oxycodone-acetaminophen 5 mg-325 1 tab PO QID PRN pain #120 tabs 05/24/24 Rx mg tablet (Percocet) Allergies Allergy/AdvReac Type Severity Reaction Status Date / Time naproxen [From Naprosyn] Allergy Mild Hives Verified 03/12/24 09:18 ondansetron [From Zofran] AdvReac Intermediate edema Verified 03/12/24 09:18 cyclobenzaprine AdvReac Mild Vomiting Verified 03/12/24 09:18 [From Flexeril] Exam Narrative Exam Narrative: Psych-alert and oriented x 3.? Attentive and appropriate, constitutionally normal, displays normal mood and affect per situation.? There are no obvious deficits in memory, reasoning, or intellect. Examination of the left lower extremity reveals notable hyperpathia and allodynia.? Notable atrophy and diffuse weakness present in the extremity.? There is notable shiny skin with hair loss and abnormal hair growth denoting trophic changes presently.? Asymmetric color and temperature changes are present which denotes sudomotor changes.? Decreased range of motion and strength is noted in the extremity.? Coordination remains intact.? Gait remains non-antalgic. Constitutional Documenting provider has reviewed patient's vital signs: yes Common normals: no apparent distress, oriented x3, healthy appearing, alert and well nourished General appearance: cooperative HENMT Common normals: normocephalic, hearing grossly normal bilaterally and moist oral mucous membranes Head and scalp: normocephalic Eye Common normals: PERRL Pupil: PERRL Neck & C-Spine Common normals: full ROM General: normal visual inspection Chest Common normals: inspection of chest normal Respiratory Common normals: normal respiratory effort, no retractions and no use of accessory muscles Neuro Common normals: oriented x3, CN's II-XII intact bilaterally, moves all extremities, no focal motor deficits, no sensory deficits noted and deep tendon reflexes 2+ bilaterally Sensorium/orientation: alert Motor exam: strength 5/5 throughout and no movement abnormalities noted Psych Common normals: mental status grossly normal, thought process normal, cooperative, affect normal, speech normal and activity/motor behavior normal Speech: normal speech Thought process: normal thought process Results Additional Findings Additional findings: If on a controlled substance or opioids, I have checked an [place] report on this patient and there are no aberrancies noted in the prescribing history.??If on a controlled substance or opioid a drug screen was completed and reviewed within the last year, and if there has not been a drug screen completed we ordered one today to monitor higher risk, state monitored pain medication use. As part of providing excellent, safe, comprehensive care, the following was completed at our patient's visit: 1. A medication reconciliation and review to ensure accurate knowledge of current/active medications, including asking our patients to inform us about any [id number] medications or herbal remedies/nutritional supplements/alternative remedies. 2. A review to specifically ensure our patients have had annual screening for screening for depression, screening for tobacco use, and screening for unhealthy alcohol use. For concerning screenings had a discussion with the patient, provided patient education, and recommended follow-up with primary care provider when appropriate. If patient noted with a risk of falling, they received education on strength, gait, and balance training to prevent future risk of falling. Assessment and Plan Assessment and Plan (1) Complex regional pain syndrome type 1 affecting left lower leg: (2) CRPS (complex regional pain syndrome): Qualifiers: Complex regional pain syndrome affected site: lower extremity Laterality: left (3) Chronic prescription opiate use: Assessment and Plan: I feel these medications are improving the patient's quality of life and allow them to tolerate activities of daily living as well as participate in recreational activity.? The patient does not report intolerable side effects. The patient is NOT opioid naive and non-pharmacologic and non-opioid treatment has failed to significantly relieve the patient's pain and improve functionality. The patient has a diagnosis that is related to a somatic or visceral pain etiology. ? ?? I reviewed with the patient the potential risks and side effects with the use of? opioid medications including but not limited to respiratory depression,? sedation, and even . I verified the patient has access to naloxone should? these effects occur. I advised the patient to avoid the use of any other? sedation substances including alcohol, THC, and benzodiazepines while? taking opioid medications due to the risk of compounding side effects and? detrimental outcomes. I reviewed the [employer], pain treatment agreement, urine? drug screen, and opioid start talking forms. The patient was advised to let? their family know they had Naloxone in case they would need to administer? the medication.? ?? A drug screen was completed within the last year, and no aberrancies were noted regarding their use of controlled substances. The patient understands they are subject to the terms and conditions of the pain contract that they have signed. ? ?? I have checked an [place]AR[place] report on this patient today and there are no aberrancies noted in the prescribing history.? (4) Ankle pain, left: Qualifiers: Chronicity: chronic Qualified Code(s): M25.572 - Pain in left ankle and joints of left foot; G89.29 - Other chronic pain Plan unfortunately with 0% improvement from left lumbar sympathetic nerve block x2 our next reasonable option is a spinal cord stimulator trial for CRPS of LLE continue medications, tolerating well without side effect f/u 2 months, sooner if needed
== END 2024-05-24 11:27 | disposition home or self-care (01) ==
PROVIDERS: Visit Provider Nurse Practitioner
DX: G90.522 Complex regional pain syndrome I of left lower limb (principal); Z79.899 Other long term (current) drug therapy
CPT/HCPCS: G0463

== ENCOUNTER 2024-06-12 14:06 | Outpatient (OUT) | payer MEDICARE, MEDICAID, SELFPAY ==
--- NOTE | 2024-06-12 | XR_ITS ---
The [address] [address] Patient Name: PEREZ BABB MRN: [id number] date: 1980 Sex: F Assigned Patient Location: Current Patient Location: Accession/Order Number: [id number] Exam Date: 06/12/2024 14:10 Report Date: 06/12/2024 15:14 At the request of: PEGGY EDWARDS Procedure: XR foot LT min 3V PROCEDURE: XR ankle LT min 3V, XR foot LT min 3V COMPARISON: 10/26/2023, 07/20/2023 HISTORY: LEFT ANKLE PAIN FINDINGS: BONES:Stable ankle fusion with likely remote talus resection. There is partial bony bridging. Moderate to severe degenerative changes with joint space narrowing marginal osteophyte formation most significant in the midfoot and first interphalangeal joint. Bulky enthesopathic spurring plantar calcaneus. No acute fracture, dislocation or mechanical failure. Remote resection of the distal fibula SOFT TISSUES:Negative. No visible soft tissue swelling. EFFUSION:None visible. OTHER: Negative. XR/XR foot LT min 3V IMPRESSION: Stable ankle fusion with no mechanical failure Electronically authenticated by: KAREEM ARREGUIN Date: 06/12/2024 15:14
--- NOTE | 2024-06-12 | XR_ITS ---
The [address] [address] Patient Name: PEREZ BABB MRN: [id number] date: 1980 Sex: F Assigned Patient Location: Current Patient Location: Accession/Order Number: [id number] Exam Date: 06/12/2024 14:10 Report Date: 06/12/2024 15:14 At the request of: PEGGY EDWARDS Procedure: XR ankle LT min 3V PROCEDURE: XR ankle LT min 3V, XR foot LT min 3V COMPARISON: 10/26/2023, 07/20/2023 HISTORY: LEFT ANKLE PAIN FINDINGS: BONES:Stable ankle fusion with likely remote talus resection. There is partial bony bridging. Moderate to severe degenerative changes with joint space narrowing marginal osteophyte formation most significant in the midfoot and first interphalangeal joint. Bulky enthesopathic spurring plantar calcaneus. No acute fracture, dislocation or mechanical failure. Remote resection of the distal fibula SOFT TISSUES:Negative. No visible soft tissue swelling. EFFUSION:None visible. OTHER: Negative. XR/XR ankle LT min 3V IMPRESSION: Stable ankle fusion with no mechanical failure Electronically authenticated by: KAREEM ARREGUIN Date: 06/12/2024 15:14
== END 2024-06-12 14:07 | disposition home or self-care (01) ==
LOC: EC 14:06
PROVIDERS: Visit Provider Podiatrist Foot & Ankle Surgery
DX: M25.572 Pain in left ankle and joints of left foot (principal); M79.672 Pain in left foot; M24.672 Ankylosis, left ankle
CPT/HCPCS: 73610; 73630

== ENCOUNTER 2024-06-26 13:51 | Outpatient (OUT) | payer MEDICARE, MEDICAID, SELFPAY ==
--- NOTE | 2024-06-26 | XR_ITS ---
The [address] [address] Patient Name: PEREZ BABB MRN: [id number] date: 1980 Sex: F Assigned Patient Location: Current Patient Location: Accession/Order Number: [id number] Exam Date: 06/26/2024 13:51 Report Date: 06/28/2024 05:08 At the request of: PEGGY EDWARDS Procedure: XR foot LT min 3V PROCEDURE: XR foot LT min 3V HISTORY: LEFT FOOT PAIN ; dorsal foot pain; fourth metatarsal stress fracture? COMPARISON: XR foot left 06/12/2024 FINDINGS: BONES:Mechanical fusion of the ankle joint and hindfoot via intramedullary jez and locking screws. No appreciable hardware fracture loosening. Multifocal moderate degenerative changes of the tarsal-metatarsal joints. Large calcaneal plantar spur. SOFT TISSUES:No visible soft tissue swelling. EFFUSION:None visible. OTHER: Negative. XR/XR foot LT min 3V IMPRESSION: 1. Stable surgical changes without appreciable hardware failure or change in alignment. 2. Moderate degenerative changes predominantly involving the tarsal metatarsal joints. 3. No stress fracture or suspicious abnormality of the fourth metatarsal. Electronically authenticated by: JO ANDERSON Date: 06/28/2024 05:08
== END 2024-06-26 13:52 | disposition home or self-care (01) ==
LOC: EC 13:51
PROVIDERS: Visit Provider Podiatrist Foot & Ankle Surgery
DX: M79.672 Pain in left foot (principal); M24.672 Ankylosis, left ankle
CPT/HCPCS: 73630

== ENCOUNTER 2024-07-25 11:15 | Outpatient (OUT) | payer MEDICARE, MEDICAID, SELFPAY ==
--- NOTE | 2024-07-25 11:42 | P.CN_ITS ---
Consult Note: HPI Data of Consult Patient: known to practice within the last 3 years Consult date: 02/06/24 Requesting Physician: Shonda Jeffery NP Primary Care Provider: [facility] Consult Narrative Reason for consult: left foot pain Narrative: 43yof who presents for assessment. she notes persistence of significant left lower extremity pain as a consequence of her 33+ foot surgeries. states that she is trying to avoid any further surgeries, if at all possible. has been able to work, but still has significant left foot pain secondary to CRPS. failed tylenol and nsaids. utilizes percocet and gabapentin, which provides some relief. has undergone a variety of physical therapy sessions, with minimal lasting benefit. denies adverse med side effects. previous left lumbar sympathetic block x2 resulted in 0% improvement. At last visit we discussed SCS trial for CRPS type 1 of LLE for which patient is interested in at this time time. Patient fell down the steps 3 weeks ago and has sustained additional fractures to toes in left foot, pt continues to follow with Dr Garcia and PCP. Patient reports upcoming MRIs of at least the cervical and lumbar spine and has blood work to complete for her PCP. cc:: CC: Shonda Jeffery NP Review of Systems ROS Status of ROS 10 or more systems reviewed and unremark able except as noted in history and below Musculoskeletal Reports: back pain, extremity pain and joint pain PFSH PFSH Medical History Anxiety ?F41.9 - Anxiety disorder, unspecified (ICD-10) Osteoarthritis ?M19.90 - Unspecified osteoarthritis, unspecified site (ICD-10) Low back pain ?M54.50 - Low back pain, unspecified (ICD-10) Anemia ?D64.9 - Anemia, unspecified (ICD-10) Obesity ?E66.9 - Obesity, unspecified (ICD-10) Acid reflux ?K21.9 - Gastro-esophageal reflux disease without esophagitis (ICD-10) Asthma ?J45.909 - Unspecified asthma, uncomplicated (ICD-10) Hypertension ?I10 - Essential (primary) hypertension (ICD-10) Surgical History H/O foot surgery ?Z98.890 - Other specified postprocedural states (ICD-10) H/O carpal tunnel repair ?Z98.890 - Other specified postprocedural states (ICD-10) History of delivery ?Z98.891 - History of uterine scar from previous surgery (ICD-10) Meds Home Medications and Allergies Home Medications ?Medication ?Instructions ?Recorded ?Confirmed ?Type ascorbic acid (vitamin C) 500 mg 500 mg PO BID 05/06/23 03/12/24 History tablet aspirin 325 mg tablet 325 mg PO DAILY 05/06/23 03/12/24 History ferrous sulfate 325 mg (65 mg 325 mg PO DAILY 05/06/23 03/12/24 History iron) tablet gabapentin 100 mg capsule 200 mg PO .every evening 05/06/23 03/12/24 History gabapentin 300 mg capsule 300 mg PO BID 05/06/23 03/12/24 History hydroxyzine pamoate 25 mg capsule 25 mg PO TID 05/06/23 03/12/24 History lidocaine 5 % topical kit 1 applic topical DAILY 05/06/23 03/12/24 History promethazine 25 mg tablet 25 mg PO Q12H PRN nausea and 05/06/23 03/12/24 History vomiting pyridoxine (vitamin B6) 100 mg 100 mg PO BID 05/06/23 03/12/24 History tablet vitamin B complex (B 1 tab PO DAILY 05/06/23 03/12/24 History Complex-Vitamin B12 tablet) zinc sulfate 50 mg zinc (220 mg) 50 mg PO DAILY 05/06/23 03/12/24 History capsule oxycodone-acetaminophen 5 mg-325 1 tab PO QID PRN pain #120 tabs 04/18/24 Rx mg tablet (Percocet) oxycodone-acetaminophen 5 mg-325 1 tab PO QID PRN pain #120 tabs 05/24/24 Rx mg tablet (Percocet) oxycodone-acetaminophen 5 mg-325 1 tab PO QID PRN pain #120 tabs 06/21/24 Rx mg tablet (Percocet) oxycodone-acetaminophen 5 mg-325 1 tab PO QID PRN pain #120 tabs 07/25/24 Rx mg tablet (Percocet) Allergies Allergy/AdvReac Type Severity Reaction Status Date / Time naproxen [From Naprosyn] Allergy Mild Hives Verified 03/12/24 09:18 ondansetron [From Zofran] AdvReac Intermediate edema Verified 03/12/24 09:18 cyclobenzaprine AdvReac Mild Vomiting Verified 03/12/24 09:18 [From Flexeril] Exam Narrative Exam Narrative: Psych-alert and oriented x 3.? Attentive and appropriate, constitutionally normal, displays normal mood and affect per situation.? There are no obvious deficits in memory, reasoning, or intellect. Examination of the left lower extremity reveals notable hyperpathia and allodynia.? Notable atrophy and diffuse weakness present in the extremity.? There is notable shiny skin with hair loss and abnormal hair growth denoting trophic changes presently.? Asymmetric color and temperature changes are present which denotes sudomotor changes.? Decreased range of motion and strength is noted in the extremity.? Coordination remains intact.? Gait remains non-antalgic. Constitutional Documenting provider has reviewed patient's vital signs: yes Common normals: no apparent distress, oriented x3, healthy appearing, alert and well nourished General appearance: cooperative HENMT Common normals: normocephalic, hearing grossly normal bilaterally and moist oral mucous membranes Head and scalp: normocephalic Eye Common normals: PERRL Pupil: PERRL Neck & C-Spine Common normals: full ROM General: normal visual inspection Chest Common normals: inspection of chest normal Respiratory Common normals: normal respiratory effort, no retractions and no use of accessory muscles Neuro Common normals: oriented x3, CN's II-XII intact bilaterally, moves all extremities, no focal motor deficits, no sensory deficits noted and deep tendon reflexes 2+ bilaterally Sensorium/orientation: alert Motor exam: strength 5/5 throughout and no movement abnormalities noted Psych Common normals: mental status grossly normal, thought process normal, cooperative, affect normal, speech normal and activity/motor behavior normal Speech: normal speech Thought process: normal thought process Results Additional Findings Additional findings: If on a controlled substance or opioids, I have checked an [place] report on this patient and there are no aberrancies noted in the prescribing history.??If on a controlled substance or opioid a drug screen was completed and reviewed within the last year, and if there has not been a drug screen completed we ordered one today to monitor higher risk, state monitored pain medication use. As part of providing excellent, safe, comprehensive care, the following was completed at our patient's visit: 1. A medication reconciliation and review to ensure accurate knowledge of current/active medications, including asking our patients to inform us about any [id number] medications or herbal remedies/nutritional supplements/alternative remedies. 2. A review to specifically ensure our patients have had annual screening for screening for depression, screening for tobacco use, and screening for unhealthy alcohol use. For concerning screenings had a discussion with the patient, provided patient education, and recommended follow-up with primary care provider when appropriate. If patient noted with a risk of falling, they received education on strength, gait, and balance training to prevent future risk of falling. Assessment and Plan Assessment and Plan (1) CRPS (complex regional pain syndrome): Qualifiers: Complex regional pain syndrome affected site: lower extremity Laterality: left (2) Complex regional pain syndrome type 1 affecting left lower leg: (3) Chronic prescription opiate use: Assessment and Plan: I feel these medications are improving the patient's quality of life and allow them to tolerate activities of daily living as well as participate in recreational activity.? The patient does not report intolerable side effects. The patient is NOT opioid naive and non-pharmacologic and non-opioid treatment has failed to significantly relieve the patient's pain and improve functionality. The patient has a diagnosis that is related to a somatic or visceral pain etiology. ? ?? I reviewed with the patient the potential risks and side effects with the use of? opioid medications including but not limited to respiratory depression,? sedation, and even . I verified the patient has access to naloxone should? these effects occur. I advised the patient to avoid the use of any other? sedation substances including alcohol, THC, and benzodiazepines while? taking opioid medications due to the risk of compounding side effects and? detrimental outcomes. I reviewed the [employer], pain treatment agreement, urine? drug screen, and opioid start talking forms. The patient was advised to let? their family know they had Naloxone in case they would need to administer? the medication.? ?? A drug screen was completed within the last year, and no aberrancies were noted regarding their use of controlled substances. The patient understands they are subject to the terms and conditions of the pain contract that they have signed. ? ?? I have checked an [place] report on this patient today and there are no aberrancies noted in the prescribing history.? (4) Ankle pain, left: Qualifiers: Chronicity: chronic Qualified Code(s): M25.572 - Pain in left ankle and joints of left foot; G89.29 - Other chronic pain Plan unfortunately with 0% improvement from left lumbar sympathetic nerve block x2 our next reasonable option is a spinal cord stimulator trial for CRPS of LLE. patient has started the process for her psychiatric evaluation, upcoming blood work through PCP, upcoming cervical and lumbar MRIs. We will review the results prior to proceeding with spinal cord stimulator trial. risks vs benefits reviewed with pt. trial to be completed under fluoroscopy with IV sedation, will require PAT. continue medications, tolerating well without side effect f/u for lead removal
== END 2024-07-25 11:16 | disposition home or self-care (01) ==
PROVIDERS: Visit Provider Nurse Practitioner
DX: M79.672 Pain in left foot (principal); G90.522 Complex regional pain syndrome I of left lower limb; Z79.891 Long term (current) use of opiate analgesic; M25.572 Pain in left ankle and joints of left foot; G89.29 Other chronic pain
CPT/HCPCS: G0463

== ENCOUNTER 2024-10-04 10:59 | Outpatient (OUT) | payer MEDICARE, MEDICAID, SELFPAY ==
--- OUTSIDE RECORDS SUMMARY | 2024-10-04 11:20 | XMS_ITS | CCD ---
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 Reaso n for Exam Obesity due to excess calories with serious comorbidity, uns Performed By: #### L IPID, CBC, TSH3 wRFLX, CMP, URMACRERAT, A1C WTH eA #### [address] Erythrocyte distribution width (RBC) [Ratio] 15.0 % Normal 11.9-15.3 [facility] Comment on above: Order Comment: Reaso n for Exam Obesity due to excess calories with serious comorbidity, uns Performed By: #### L IPID, CBC, TSH3 wRFLX, CMP, URMACRERAT, A1C WTH eA #### [address] Hematocrit (Bld) [Volume fraction] 38.5 % Normal 34.0-46.4 [facility] Comment on above: Order Comment: Reaso n for Exam Obesity due to excess calories with serious comorbidity, uns Performed By: #### L IPID, CBC, TSH3 wRFLX, CMP, URMACRERAT, A1C WTH eA #### [place] [address] [place] Hemoglobin (Bld) [Mass/Vol] 12.5 g/dL Normal 11.8-15.4 [facility] Comment on above: Order Comment: Reaso n for Exam Obesity due to excess calories with serious comorbidity, uns Performed By: #### L IPID, CBC, TSH3 wRFLX, CMP, URMACRERAT, A1C WTH eA #### [place] [address] [place] Lymphocytes (Bld) [#/Vol] 2.7 10*3/uL Normal 1.00-4.8 [facility] Comment on above: Order Comment: Reaso n for Exam Obesity due to excess calories with serious comorbidity, uns Performed By: #### L IPID, CBC, TSH3 wRFLX, CMP, URMACRERAT, A1C WTH eA #### [facility] [address] [place] [address] [place] Lymphocytes/100 WBC (Bld) 35.0 % Normal . [facility] Comment on above: Order Comment: Reaso n for Exam Obesity due to excess calories with serious comorbidity, uns Performed By: #### L IPID, CBC, TSH3 wRFLX, CMP, URMACRERAT, A1C WTH eA #### [facility] [address] [place] [address] [place] MCH (RBC) [Entitic mass] 24.5 pg Low 24.7-34.3 [facility] Comment on above: Order Comment: Reaso n for Exam Obesity due to excess calories with serious comorbidity, uns Performed By: #### L IPID, CBC, TSH3 wRFLX, CMP, URMACRERAT, A1C WTH eA #### [place] [address] [place] MCV (RBC) [Entitic vol] 75.7 fL Low 80-100 [facility] Comment on above: Order Comment: Reaso n for Exam Obesity due to excess calories with serious comorbidity, uns Performed By: #### L IPID, CBC, TSH3 wRFLX, CMP, URMACRERAT, A1C WTH eA #### [facility] [address] [place] [address] [place] Monocytes (Bld) [#/Vol] 0.4 10*3/uL Normal 0.0-0.8 [facility] Comment on above: Order Comment: Reaso n for Exam Obesity due to excess calories with serious comorbidity, uns Performed By: #### L IPID, CBC, TSH3 wRFLX, CMP, URMACRERAT, A1C WTH eA #### [facility] [address] [place] [address] [place] Monocytes/100 WBC (Bld) 4.6 % Normal . [facility] Comment on above: Order Comment: Reaso n for Exam Obesity due to excess calories with serious comorbidity, uns Performed By: #### L IPID, CBC, TSH3 wRFLX, CMP, URMACRERAT, A1C WTH eA #### [facility] [address] [place] [address] [place] Neutrophils (Bld) [#/Vol] 4.3 10*3/uL Normal 1.8-7.7 [facility] Comment on above: Order Comment: Reaso n for Exam Obesity due to excess calories with serious comorbidity, uns Performed By: #### L IPID, CBC, TSH3 wRFLX, CMP, URMACRERAT, A1C WTH eA #### [facility] [address] [place] [id number] [place] Neutrophils/100 WBC (Bld) 56.2 % Normal . [facility] Comment on above: Order Comment: Reaso n for Exam Obesity due to excess calories with serious comorbidity, uns Performed By: #### L IPID, CBC, TSH3 wRFLX, CMP, URMACRERAT, A1C WTH eA #### [facility] [address] [place] [id number] [place] Platelet mean volume (Bld) [Entitic vol] 7.4 fL Normal 6.3-10.7 [facility] Comment on above: Order Comment: Reaso n for Exam Obesity due to excess calories with serious comorbidity, uns Performed By: #### L IPID, CBC, TSH3 wRFLX, CMP, URMACRERAT, A1C WTH eA #### [facility] [address] [place] [address] [place] Platelets (Bld) [#/Vol] 324 10*3/uL Normal 150-450 [facility] Comment on above: Order Comment: Reaso n for Exam Obesity due to excess calories with serious comorbidity, uns Performed By: #### L IPID, CBC, TSH3 wRFLX, CMP, URMACRERAT, A1C WTH eA #### [facility] [address] [place] [address] [place] RBC (Bld) [#/Vol] 5.08 10*6/uL High 3.60-5.00 [facility] Comment on above: Order Comment: Reaso n for Exam Obesity due to excess calories with serious comorbidity, uns Performed By: #### L IPID, CBC, TSH3 wRFLX, CMP, URMACRERAT, A1C WTH eA #### [facility] [address] WBC (Bld) [#/Vol] 7.7 10*3/uL Normal 3.8-11.6 [facility] Comment on above: Order Comment: Reaso n for Exam Obesity due to excess calories with serious comorbidity, uns Performed By: #### L IPID, CBC, TSH3 wRFLX, CMP, URMACRERAT, A1C WTH eA #### [facility] [address] Complete Blood Count Auto Di ffon 09-07-2024 Mean Corpuscular HGB Conc 32.4 g/dL Normal 32.0-35.0 [facility] Comment on above: Order Comment: Reaso n for Exam Obesity due to excess calories with serious comorbidity, uns Performed By: #### L IPID, CBC, TSH3 wRFLX, CMP, URMACRERAT, A1C WTH eA #### [facility] [address] [place] [address] NRBC% 0.1 /100{WBC} Normal 0-0.5 [facility] Comment on above: Order Comment: Reaso n for Exam Obesity due to excess calories with serious comorbidity, uns Performed By: #### L IPID, CBC, TSH3 wRFLX, CMP, URMACRERAT, A1C WTH eA #### [facility] [address] Comprehensive Metabolic Pane susan 09-07-2024 Albumin [Mass/Vol] 3.8 g/dL Normal 3.5-5.7 [facility] Comment on above: Order Comment: Reaso n for Exam Obesity due to excess calories with serious comorbidity, uns Performed By: #### L IPID, CBC, TSH3 wRFLX, CMP, URMACRERAT, A1C WTH eA #### [facility] [address] GFR/1.73 sq M.predicted MDRD (S/P/Bld) [Vol rate/Area] mL/min/{1.73_m2} Normal [facility] Comment on above: Order Comment: Reaso n for Exam Obesity due to excess calories with serious comorbidity, uns Performed By: #### L IPID, CBC, TSH3 wRFLX, CMP, URMACRERAT, A1C WTH eA #### [facility] [address] [place] [address] Comprehensive Metabolic Pane lOrdered By: John Luu on 09-07-2024 Albumin/Globulin [Mass ratio] 1.3 {ratio} Normal [facility] Comment on above: Order Comment: Reaso n for Exam Obesity due to excess calories with serious comorbidity, uns Performed By: #### L IPID, CBC, TSH3 wRFLX, CMP, URMACRERAT, A1C WTH eA #### [address] ALP [Catalytic activity/Vol] 102 U/L Normal 34-104 [facility] Comment on above: Order Comment: Reaso n for Exam Obesity due to excess calories with serious comorbidity, uns Performed By: #### L IPID, CBC, TSH3 wRFLX, CMP, URMACRERAT, A1C WTH eA #### [address] ALT [Catalytic activity/Vol] 17 U/L Normal 7-52 [facility] Comment on above: Order Comment: Reaso n for Exam Obesity due to excess calories with serious comorbidity, uns Performed By: #### L IPID, CBC, TSH3 wRFLX, CMP, URMACRERAT, A1C WTH eA #### [facility] [address] [place] [address] Anion gap [Moles/Vol] 10.2 mmol/L Normal 6.0-15.0 [facility] Comment on above: Order Comment: Reaso n for Exam Obesity due to excess calories with serious comorbidity, uns Performed By: #### L IPID, CBC, TSH3 wRFLX, CMP, URMACRERAT, A1C WTH eA #### [facility] [address] [place] [id number] [place] AST [Catalytic activity/Vol] 13 U/L Normal 13-39 [facility] Comment on above: Order Comment: Reaso n for Exam Obesity due to excess calories with serious comorbidity, uns Performed By: #### L IPID, CBC, TSH3 wRFLX, CMP, URMACRERAT, A1C WTH eA #### [facility] [address] [place] [id number] [place] Bilirubin [Mass/Vol] 0.4 mg/dL Normal 0.3-1.0 [facility] Comment on above: Order Comment: Reaso n for Exam Obesity due to excess calories with serious comorbidity, uns Performed By: #### L IPID, CBC, TSH3 wRFLX, CMP, URMACRERAT, A1C WTH eA #### [facility] [address] [place] [address] [place] Calcium [Mass/Vol] 8.8 mg/dL Normal 8.6-10.3 [facility] Comment on above: Order Comment: Reaso n for Exam Obesity due to excess calories with serious comorbidity, uns Performed By: #### L IPID, CBC, TSH3 wRFLX, CMP, URMACRERAT, A1C WTH eA #### [facility] [address] [place] [id number] [place] Chloride [Moles/Vol] 107 mmol/L Normal 98-107 [facility] Comment on above: Order Comment: Reaso n for Exam Obesity due to excess calories with serious comorbidity, uns Performed By: #### L IPID, CBC, TSH3 wRFLX, CMP, URMACRERAT, A1C WTH eA #### [facility] [address] [place] [id number] [place] CO2 [Moles/Vol] 28.8 mmol/L Normal 21.0-31.0 [facility] Comment on above: Order Comment: Reaso n for Exam Obesity due to excess calories with serious comorbidity, uns Performed By: #### L IPID, CBC, TSH3 wRFLX, CMP, URMACRERAT, A1C WTH eA #### [facility] [address] Creatinine [Mass/Vol] 0.77 mg/dL Normal 0.60-1.20 [facility] Comment on above: Order Comment: Reaso n for Exam Obesity due to excess calories with serious comorbidity, uns Performed By: #### L IPID, CBC, TSH3 wRFLX, CMP, URMACRERAT, A1C WTH eA #### [facility] [address] Globulin (S) [Mass/Vol] 2.9 g/dL Normal [facility] Comment on above: Order Comment: Reaso n for Exam Obesity due to excess calories with serious comorbidity, uns Performed By: #### L IPID, CBC, TSH3 wRFLX, CMP, URMACRERAT, A1C WTH eA #### [address] Glucose [Mass/Vol] 89 mg/dL Normal 70-100 [facility] Comment on above: Order Comment: Reaso n for Exam Obesity due to excess calories with serious comorbidity, uns Result Comment: [place] om Glucose Reference Range is dependent on time and content of last meal. Glucose of more than 200 mg/dL in a nonstressed, ambulatory subject supports the diagnosis of Diabetes Mellitus. ADA recommended reference range Performed By: #### L IPID, CBC, TSH3 wRFLX, CMP, URMACRERAT, A1C WTH eA #### [facility] [address] [place] [address] ADA recommended refe rence rangeRandom Glucose Reference Range is dependent on time and content of last meal. Glucose of more than 200 mg/dL in a nonstressed, ambulatory subject supports the diagnosis of Diabetes Mellitus. Potassium [Moles/Vol] 4.0 mmol/L Normal 3.5-5.1 [facility] Comment on above: Order Comment: Reaso n for Exam Obesity due to excess calories with serious comorbidity, uns Performed By: #### L IPID, CBC, TSH3 wRFLX, CMP, URMACRERAT, A1C WTH eA #### [facility] [address] [place] [address] [place] Protein [Mass/Vol] 6.7 g/dL Normal 6.4-8.9 [facility] Comment on above: Order Comment: Reaso n for Exam Obesity due to excess calories with serious comorbidity, uns Performed By: #### L IPID, CBC, TSH3 wRFLX, CMP, URMACRERAT, A1C WTH eA #### [facility] [address] [place] [address] [place] Sodium [Moles/Vol] 142 mmol/L Normal 136-145 [facility] Comment on above: Order Comment: Reaso n for Exam Obesity due to excess calories with serious comorbidity, uns Performed By: #### L IPID, CBC, TSH3 wRFLX, CMP, URMACRERAT, A1C WTH eA #### [facility] [address] [place] [id number] [place] Urea nitrogen [Mass/Vol] 11 mg/dL Normal 7-25 [facility] Comment on above: Order Comment: Reaso n for Exam Obesity due to excess calories with serious comorbidity, uns Performed By: #### L IPID, CBC, TSH3 wRFLX, CMP, URMACRERAT, A1C WTH eA #### [facility] [address] [place] [address] [place] Creatinine [Mass/volume] in UrineOrdered By: John Luu on 09-07-2024 Creatinine (U) [Mass/Vol] 167.00 mg/dL [facility] Comment on above: No reference range e stablished Glucose mean value [Mass/vol ume] in Blood Estimated from glycated hemoglobinOrdered By: John Luu on 09-07-2024 Average glucose Estimated from glycated hemoglobin (Bld) [Mass/Vol] 123 mg/dL [facility] Leukocytes [#/volume] correc abdias for nucleated erythrocytes in Blood by Automated counOrdered By: John Luu on 09-07-2024 WBC corrected for nucl RBC Auto (Bld) [#/Vol] 7.7 10*3/uL 3.8-11.6 [facility] Lipid PanelOrdered By: Volodymyr Luu on 09-07-2024 Cholesterol [Mass/Vol] 166 mg/dL Normal 140-200 [facility] Comment on above: Order Comment: Deb n for Exam Obesity due to excess calories with serious comorbidity, uns Result Comment: Chol less than 200 mg/dl low risk Chol 201-239 mg/dl borderline risk Chol 240 mg/dl and greater high risk Performed By: #### L IPID, CBC, TSH3 wRFLX, CMP, URMACRERAT, A1C WTH eA #### [facility] [address] [place] [id number] [facility] Chol less than 200 m g/dl low riskChol 201-239 mg/dl borderline riskChol 240 mg/dl and greater high risk Cholesterol in HDL [Mass/Vol] 37 mg/dL Normal 23-92 [facility] Comment on above: Order Comment: Deb n for Exam Obesity due to excess calories with serious comorbidity, uns Result Comment: HDL CHOL ATP-III CLASSIFICATION Cardiovascular Risk HDL > or equal to 60 mg/dL LOW HDL < 40 mg/dL HIGH Performed By: #### L IPID, CBC, TSH3 wRFLX, CMP, URMACRERAT, A1C WTH eA #### [facility] [address] [place] [id number] [facility] HDL CHOL ATP-III CLA SSIFICATION Cardiovascular RiskHDL > or equal to 60 mg/dL LOWHDL < 40 mg/dL HIGH Cholesterol.total/Chol esterol in HDL [Mass ratio] 4.5 {ratio} Normal <5.0 [facility] Comment on above: Order Comment: Deb n for Exam Obesity due to excess calories with serious comorbidity, uns Performed By: #### L IPID, CBC, TSH3 wRFLX, CMP, URMACRERAT, A1C WTH eA #### [facility] [address] [place] [id number] [facility] Lipid Panelon 09-07-2024 LDL Cholesterol,Calculated 113 mg/dL High 0-100 [facility] Comment on above: Order Comment: Deb n for Exam Obesity due to excess calories with serious comorbidity, uns Result Comment: LDL ATP III CLASSIFICATION LDL less than 100 mg/dL Optimal LDL 100-129 mg/dL Near or above optimal LDL 130-159 mg/dL Borderline high LDL 160-189 mg/dL High LDL greater than 189 mg/dL Very high Performed By: #### L IPID, CBC, TSH3 wRFLX, CMP, URMACRERAT, A1C WTH eA #### [facility] [address] Triglyceride w/Reflex 78 mg/dL Normal 0-149 [facility] Comment on above: Order Comment: Reaso n for Exam Obesity due to excess calories with serious comorbidity, uns Result Comment: TRIG ATP III CLASSIFICATION TRIG less than 150 mg/dL Normal TRIG 150-199 mg/dL Borderline high TRIG 200-500 mg/dL High TRIG greater than 500 mg/dL Very high Standard traceable to the Center for Disease Conrtrol and Prevention (CDC) test method. Performed By: #### L IPID, CBC, TSH3 wRFLX, CMP, URMACRERAT, A1C WTH eA #### [facility] [address] VLDL CHOLESTEROL 15 mg/dL Normal [facility] Comment on above: Order Comment: Reaso n for Exam Obesity due to excess calories with serious comorbidity, uns Performed By: #### L IPID, CBC, TSH3 wRFLX, CMP, URMACRERAT, A1C WTH eA #### [facility] [address] MCHC Auto (RBC) [Mass/Vol]Or dered By: John Luu on 09-07-2024 MCHC (RBC) [Mass/Vol] 32.4 g/dL 32.0-35.0 [facility] MicroAlb Creat Ratio,UOrdere d By: John Luu on 09-07-2024 Albumin DL <= 20 mg/L (U) [Mass/Vol] 0.9 mg/dL Normal 0.0-1.8 [facility] Comment on above: Order Comment: Reaso n for Exam Obesity due to excess calories with serious comorbidity, uns Performed By: #### L IPID, CBC, TSH3 wRFLX, CMP, URMACRERAT, A1C WTH eA #### [facility] [address] [place] [address] [place] MicroAlb Creat Ratio,Uon Creatinine, Urine (Random) 167.00 mg/dL Normal [facility] Comment on above: Order Comment: Reaso n for Exam Obesity due to excess calories with serious comorbidity, uns Result Comment: No r eference range established Performed By: #### L IPID, CBC, TSH3 wRFLX, CMP, URMACRERAT, A1C WTH eA #### [facility] [address] Microalbumin/Creatinin e Ratio 5.4 mg/g Normal 0.0-30.0 [facility] Comment on above: Order Comment: Reaso n for Exam Obesity due to excess calories with serious comorbidity, uns Result Comment: 30-3 00 mg/g indicates an increased risk for diabetic nephropathy. Greater than 300 mg/g is consistent with clinical nephropathy. (Am. J. Kidney Disease 1995, 25:107) PERFORMED BY: [address] [place] [address] PATHOLOGIST AUT[employer] STRIPER MARTY SALGADO M.D. Performed By: #### L IPID, CBC, TSH3 wRFLX, CMP, URMACRERAT, A1C WT eA #### [facility] [address] No Panel InformationOrdered By: John Luu on 09-07-2024 Estimated GFR (CKD-EPI) > 60.0 mL/Min [facility] Creatinine Clearance (Chem N/A [facility] Nucleated erythrocytes [Pres ence] in Blood by Automated countOrdered By: John Luu on 09-07-2024 Nucleated RBC Auto Ql (Bld) 0.1 /100{WBC} 0-0.5 [facility] Thyroid Stim Hormone w/Rflxo n 09-07-2024 Thyroid Stim Hormone w/Rflx 0.94 u[iU]/mL Normal 0.45-5.33 [facility] Comment on above: Order Comment: Reaso n for Exam Obesity due to excess calories with serious comorbidity, uns Result Comment: PERF ORMED BY: [place] [id number] PATHOLOGIST [employer] STRIPER MARTY SALGADO M.D. Performed By: #### L IPID, CBC, TSH3 wRFLX, CMP, URMACRERAT, A1C [facility] eA ####[facility] [address] Thyrotropin [Units/volume] i n Serum or PlasmaOrdered By: John Luu on 09-07-2024 TSH Qn 0.94 m[IU]/L 0.45-5.33 [facility] Triglyceride [Mass/volume] i n Serum or PlasmaOrdered By: John Luu on 09-07-2024 Triglyceride [Mass/Vol] 78 mg/dL 0-149 [facility] Comment on above: TRIG ATP III CLASSIF ICATIONTRIG less than 150 mg/dL NormalTRIG 150-199 mg/dL Borderline highTRIG 200-500 mg/dL High TRIG greater than 500 mg/dL Very highStandard traceable to the Center for Disease Conrtrol and Prevention (CDC) test method. Urine microalbumin/creatinin e mass ratioOrdered By: John Luu on 09-07-2024 Albumin/Creatinine DL <= 20 mg/L (U) [Mass ratio] 5.4 mg/g 0.0-30.0 [facility] Comment on above: 30-300 mg/g indicate s an increased risk for diabetic nephropathy. Greater than 300 mg/g is consistent with clinical nephropathy. (Am. J. Kidney Disease 1995, 25:107) XR foot RT min 3V*on 024 XR foot RT min 3V* [facility] [address] [place] [address] [place] [address] XRay Report Signed Patient: Loy Tam MR#: [id number] : 1980 Acct:[id number] Age/Sex: 43 / F ADM Date: 08/07/24 Loc: ER Room: Type: [facility] ER Attending Dr: Copies to: Agustin Sandra APRN Ordering Provider: Agustin Sandra APRN Date of Service: 08/07/24 XR/XR foot RT min 3V*: Extremity Injury, Lower RIGHT FOOT - 3 views CLINICAL DATA: Patient fell on stairs and has pain at the right foot across the metatarsals and at the first toe. COMPARISON: 09/17/2019 AP, lateral and oblique views were obtained. There is no acute fracture or dislocation. Similar degenerative changes are again visualized including calcaneal spurs. There are no significant soft tissue abnormalities. XR/XR foot RT min 3V* IMPRESSION: NO ACUTE BONY INJURY. DEGENERATIVE CHANGES. Impression dictated by: Sarah Mistry M.D.08/07/2024 11:28 AM Dictation Location: [place] [address] Transcribed By: [facility] 08/07/24 112 Dictated By: Sarah Mistry MD 08/07/241125 Signed By: 08/07/24 112 Normal [facility] Activated partial thrombopla stin time (aPTT) in platelet poor plasma by coagulation aOrdered By: Jovan Hutson on 07-10-2024 aPTT Coag (PPP) [Time] 33.6 s 25.1-36.5 [facility] Comment on above: A hematocrit value g reater than 55% may lead to inaccurate results in coagulation testing. Patients having hematocrit values >55% require a special collection tube for coagulation studies. Please contact the laboratory at [phone] for redraw instructions. Alanine aminotransferase [En zymatic activity/volume] in Serum or PlasmaOrdered By: Jovan Hutson on 07-10-2024 ALT [Catalytic activity/Vol] 34 U/L Normal 7-52 [facility] Comment on above: Performed By: #### L IPASE, CBC, BMP, PT, PTT, HEPATIC ####[facility] [address] [place] [id number] [facility] Albumin [Mass/volume] in Ser um or Plasma by Bromocresol green (BCG) dye binding methoOrdered By: Jovan Hutson on 07-10-2024 Albumin BCG dye [Mass/Vol] 4.2 g/dL 3.5-5.7 [facility] Alkaline phosphatase [Enzyma tic activity/volume] in Serum or PlasmaOrdered By: Jovan Hutson on 07-10-2024 ALP [Catalytic activity/Vol] 106 U/L High 34-104 [facility] Comment on above: Performed By: #### L IPASE, CBC, BMP, PT, PTT, HEPATIC ####[address] Aspartate aminotransferase [ Enzymatic activity/volume] in Serum or PlasmaOrdered By: Jovan Hutson on 07-10-2024 AST [Catalytic activity/Vol] 18 U/L Normal 13-39 [facility] Comment on above: Performed By: #### L IPASE, CBC, BMP, PT, PTT, HEPATIC ####[place] [id number] [facility] Automated basophil %Ordered By: Jovan Hutson on 07-10-2024 Basophils/100 WBC (Bld) 0.8 % Normal . [facility] Comment on above: Performed By: #### L IPASE, CBC, BMP, PT, PTT, HEPATIC ####[address] Automated basophil countOrde red By: Jovan Hutson on 07-10-2024 Basophils (Bld) [#/Vol] 0.1 10*3/uL Normal 0.0-0.2 [facility] Comment on above: Result Comment: PERF ORMED BY: [facility] [address] [place] [address] PATHOLOGIST [employer]IP[employer] MARTY SALGADO M.D. Performed By: #### L IPASE, CBC, BMP, PT, PTT, HEPATIC ####[place] [id number] [facility] Automated blood monocyte cou ntOrdered By: Jovan Hutson on 07-10-2024 Monocytes (Bld) [#/Vol] 0.5 10*3/uL Normal 0.0-0.8 [facility] Comment on above: Performed By: #### L IPASE, CBC, BMP, PT, PTT, HEPATIC ####[address] Automated eosinophil %Ordere d By: Jovan Hutson on 07-10-2024 Eosinophils/100 WBC (Bld) 4.5 % Normal . [facility] Comment on above: Performed By: #### L IPASE, CBC, BMP, PT, PTT, HEPATIC ####[address] Automated eosinophil countOr dered By: Jovan Hutson on 07-10-2024 Eosinophils (Bld) [#/Vol] 0.4 10*3/uL Normal 0.0-0.45 [facility] Comment on above: Performed By: #### L IPASE, CBC, BMP, PT, PTT, HEPATIC ####[address] Automated monocyte %Ordered By: Jovan Hutson on 07-10-2024 Monocytes/100 WBC (Bld) 6.1 % Normal . [facility] Comment on above: Performed By: #### L IPASE, CBC, BMP, PT, PTT, HEPATIC ####[address] Automated neutrophil %Ordere d By: Jovan Hutson on 07-10-2024 Neutrophils/100 WBC (Bld) 62.1 % Normal . [facility] Comment on above: Performed By: #### L IPASE, CBC, BMP, PT, PTT, HEPATIC ####[address] Bacteria [Presence] in Urine by AutomatedOrdered By: Jovan Hutson on 07-10-2024 Bacteria Auto Ql (U) None seen [HPF] None Seen [facility] Basic Metabolic Panelon 06-28 Creatinine Clr Calc Pharmacy 115.15 Normal [facility] Comment on above: Performed By: #### L IPASE, CBC, BMP, PT, PTT, HEPATIC ####[address] GFR/1.73 sq M.predicted MDRD (S/P/Bld) [Vol rate/Area] mL/min/{1.73_m2} Normal [facility] Comment on above: Performed By: #### L IPASE, CBC, BMP, PT, PTT, HEPATIC ####[place] [address] [place] Bilirubin Test strip Ql (U)O rdered By: Jovan Hutson on 07-10-2024 Bilirubin Ql (U) Negative Negative [facility] Bilirubin.direct [Mass/volum e] in Serum or PlasmaOrdered By: Jovan Hutson on 07-10-2024 Bilirubin.direct [Mass/Vol] 0.10 mg/dL 0.03-0.18 [facility] Bilirubin.total [Mass/volume ] in Serum or PlasmaOrdered By: Jovan Hutson on 07-10-2024 Bilirubin [Mass/Vol] 0.4 mg/dL Normal 0.3-1.0 [facility] Comment on above: Performed By: #### L IPASE, CBC, BMP, PT, PTT, HEPATIC ####[facility] [id number] abdomen pelvis w conon CT abdomen pelvis w con [facility] [address] [place] [address] [place] [address] CT Scan Report Signed Patient: Lyo Tam MR#: [id number] : 1980 Acct:[id number] Age/Sex: 43 / F ADM Date: 07/10/24 Loc: ER Room: Type: [facility] ER Attending Dr: Copies to: Jovan Hutson DO Ordering Provider: Jovan Hutson DO Date of Service: 07/10/24 CT/CT abdomen pelvis w con: lower and umbilical tenderness, hx abd sx CT ABDOMEN AND PELVIS WITH CONTRAST COMPARISON: 01/25/2022 CLINICAL DATA: Lower abdominal and periumbilical pain. Nausea, vomiting and diarrhea. Spiral images were obtained through the abdomen pelvis following 90 mL Isovue-300. This CT exam was performed using one or more following dose reduction techniques: Automated exposure control, adjustment of the mA and/or kV according to patient size, or use of iterative reconstruction technique. Limited cuts through the lung bases show no contributory pulmonary findings. There is a tiny hiatal hernia. The gallbladder is surgically absent. No common duct stones are noted. The liver, spleen, pancreas and adrenal glands show no acute findings. There are symmetric renal nephrograms. There is one punctate stone at the lower pole of the left kidney. There are at least 3 tiny stones at the mid to lower pole on the right. No hydronephrosis is visualized. No ureteral dilatation or stones are seen. The abdominal aorta is normal caliber. There are tiny lymph nodes. No ascites is present. There is a small umbilical hernia containing fat. No dilated small bowel loops are visualized. There is mild stool throughout the colon. There is subtle levoscoliotic curvature as well as degenerative changes at the spine, greatest at the lower facets. There is also degenerative change at the SI joints with partial ankylosis and enthesophytes at the iliac crests. Images through the pelvis show no appendiceal inflammation. There is no dilated small bowel. There is a small amount of colonic stool. No diverticular disease is seen. Patient has a T-shaped IUD. There are no dominant adnexal cysts. The urinary bladder is not well distended for evaluation. No free fluid is noted. CT/CT abdomen pelvis w con IMPRESSION: BILATERAL NEPHROLITHIASIS, WITHOUT OBSTRUCTION. NO ACUTE FINDINGS. Impression dictated by: Sarah Mistry M.D.07/10/2024 8:49 PM Dictation Location: [place] [address] Transcribed By: [facility] 07/10/242048 Dictated By: Sarah Mistry MD 07/10/242043 Signed By: 07/10/242048 Normal [facility] Calcium [Mass/volume] in Ser um or PlasmaOrdered By: Jovan Hutson on 07-10-2024 Calcium [Mass/Vol] 9.5 mg/dL Normal 8.6-10.3 [facility] Comment on above: Performed By: #### L IPASE, CBC, BMP, PT, PTT, HEPATIC ####[facility] [id number] [place] [id number] [facility] Carbon dioxide, total [Moles /volume] in Serum or PlasmaOrdered By: Jovan Hutson on 07-10-2024 CO2 [Moles/Vol] 29.7 mmol/L Normal 21.0-31.0 [facility] Comment on above: Performed By: #### L IPASE, CBC, BMP, PT, PTT, HEPATIC ####[facility] Chloride [Moles/volume] in S brian or PlasmaOrdered By: Jovan Hutson on 07-10-2024 Chloride [Moles/Vol] 105 mmol/L Normal 98-107 [facility] Comment on above: Performed By: #### L IPASE, CBC, BMP, PT, PTT, HEPATIC ####[place] [id number] Color of Urine by AutoOrdere d By: Jovan Hutson on 07-10-2024 Color (U) Light-yellow Normal Yellow [facility] Comment on above: Order Comment: Name Collection Type:: Clean-Voided Midstream Performed By: #### A DDONUAPLUS #### [facility] [address] Complete Blood Count Auto Di ffon 07-10-2024 Mean Corpuscular HGB Conc 32.1 g/dL Normal 32.0-35.0 [facility] Comment on above: Performed By: #### L IPASE, CBC, BMP, PT, PTT, HEPATIC ####[place] [id number] Monocytes/100 WBC (Bld) 20.46 % High 0.00-20.00 [facility] Comment on above: Result Comment: For adults in ED, MDW > 20.0 may be associated with a higher risk of sepsis during the first 12 hrs of hospital admission Performed By: #### L IPASE, CBC, BMP, PT, PTT, HEPATIC ####[place] [id number] NRBC% 0.1 /100{WBC} Normal 0-0.5 [facility] Comment on above: Performed By: #### L IPASE, CBC, BMP, PT, PTT, HEPATIC ####[place] [id number] Creatinine [Mass/volume] in Serum or PlasmaOrdered By: Jovan Hutson on 07-10-2024 Creatinine [Mass/Vol] 0.83 mg/dL Normal 0.60-1.20 [facility] Comment on above: Performed By: #### L IPASE, CBC, BMP, PT, PTT, HEPATIC ####[facility] Hsa[address] [place] [address] [place] Dipstick and Microscopicon 0 07-10-2024 Bacteria,Urine None Seen Normal None Seen [facility] Comment on above: Order Comment: Name Collection Type:: Clean-Voided Midstream Performed By: #### A DDONUAPLUS #### [place] [address] [place] Bilirubin,Urine Negative Normal Negative [facility] Comment on above: Order Comment: Name Collection Type:: Clean-Voided Midstream Performed By: #### A DDONUAPLUS #### [place] [address] [place] Glucose Ql (U) Normal Normal Normal [facility] Comment on above: Order Comment: Name Collection Type:: Clean-Voided Midstream Performed By: #### A DDONUAPLUS #### [place] [address] [place] Hyaline Casts,Urine None Normal 0-8 [facility] Comment on above: Order Comment: Name Collection Type:: Clean-Voided Midstream Performed By: #### A DDONUAPLUS #### [place] [address] [place] Mucus,Urine Rare Normal [facility] Comment on above: Order Comment: Name Collection Type:: Clean-Voided Midstream Result Comment: PERF ORMED BY: [place] [address] PATHOLOGIST [employer]IP[employer] MARTY SALGADO M.D. Performed By: #### A DDONUAPLUS #### [place] [address] [place] Nitrite,Urine Negative Normal Negative [facility] Comment on above: Order Comment: Name Collection Type:: Clean-Voided Midstream Performed By: #### A DDONUAPLUS #### [place] [address] [place] Occult Blood,Urine 1+ High Negative [facility] Comment on above: Order Comment: Name Collection Type:: Clean-Voided Midstream Performed By: #### A DDONUAPLUS #### [place] [address] [place] Protein,Urine Negative Normal Negative [facility] Comment on above: Order Comment: Name Collection Type:: Clean-Voided Midstream Performed By: #### A DDONUAPLUS #### [place] [address] [place] RBC,Urine 1-2 Normal 0-4 [facility] Comment on above: Order Comment: Name Collection Type:: Clean-Voided Midstream Performed By: #### A DDONUAPLUS #### [place] [address] [place] Specificy [place],Urine > 1.050 High 1.001-1.030 [facility] Comment on above: Order Comment: Name Collection Type:: Clean-Voided Midstream Result Comment: Rech ecked by refractometer Performed By: #### A DDONUAPLUS #### [place] [address] [place] Squamous Epithelial Cell,Urine 3-4 High 0-2 [facility] Comment on above: Order Comment: Name Collection Type:: Clean-Voided Midstream Performed By: #### A DDONUAPLUS #### [place] [address] [place] Urobilinogen,Urine Normal Normal Normal [facility] Comment on above: Order Comment: Name Collection Type:: Clean-Voided Midstream Performed By: #### A DDONUAPLUS #### [place] [id number] [place] WBC,Urine 1-2 Normal 0-4 [facility] Comment on above: Order Comment: Name Collection Type:: Clean-Voided Midstream Performed By: #### A DDONUAPLUS #### [place] [id number] [place] ECG 12 lead ECGon 07-10-2024 ECG 12 lead ECG [facility] [address] [place] [address] [place] [address] Electrocardiograph Report Signed Patient: Loy Tam MR#: [id number] : 1980 Acct:[id number] Age/Sex: 43 / F ADM Date: 07/10/24 Loc: ER Room: Type: [facility] ER Attending Dr: Ordering Provider: Jovan Hutson DO Date of Service: 07/10/24 ECG/ECG 12 lead ECG: Abdominal Pain Copies to: Test Reason : Blood Pressure : */* mmHG Vent. Rate : 75 BPM Atrial Rate : 75 BPM P-R Int : 180 ms QRS Dur : 76 ms QT Int : 384 ms P-R-T Axes : 63 90 30 degrees QTcB Int : 428 ms Normal sinus rhythm with sinus arrhythmia Rightward axis Borderline ECG When compared with ECG of 18-Jun-2023 21:23, No significant change was found Confirmed by Lee Burnette ([id number]) on 07/13/2024 1:07:36 PM Referred By: Electronically Signed By: Lee Burnette Transcribed By: MUS Signed By Lee Burnette MD 07/13/24 1307 Normal [facility] Epithelial cells.squamous [# /area] in Urine sediment by Automated countOrdered By: Jovan Hutson on 07-10-2024 Epithelial cells.squamous Auto (Urine sed) [#/Area] 3-4 [HPF] High 0-2 [facility] Erythrocyte distribution wid th [Ratio] by Automated countOrdered By: Jovan Hutson on 07-10-2024 Erythrocyte distribution width (RBC) [Ratio] 15.2 % Normal 11.9-15.3 [facility] Comment on above: Performed By: #### L IPASE, CBC, BMP, PT, PTT, HEPATIC ####[facility] [id number] [place] [address] [facility] Erythrocytes [#/area] in Uri ne sediment by Automated countOrdered By: Jovan Hutson on 07-10-2024 RBC Auto (Urine sed) [#/Area] 1-2 [HPF] 0-4 [facility] Erythrocytes [#/volume] in B lood by Automated countOrdered By: Jovan Hutson on 07-10-2024 RBC (Bld) [#/Vol] 5.73 10*6/uL High 3.60-5.00 [facility] Comment on above: Performed By: #### L IPASE, CBC, BMP, PT, PTT, HEPATIC ####[facility] [place] [address] [facility] Glucose [Mass/volume] in Ser um or PlasmaOrdered By: Jovan Hutson on 07-10-2024 Glucose [Mass/Vol] 85 mg/dL Normal 70-100 [facility] Comment on above: ADA recommended refe rence rangeRandom Glucose Reference Range is dependent on time and content of last meal. Glucose of more than 200 mg/dL in a nonstressed, ambulatory subject supports the diagnosis of Diabetes Mellitus. Result Comment: [place] om Glucose Reference Range is dependent on time and content of last meal. Glucose of more than 200 mg/dL in a nonstressed, ambulatory subject supports the diagnosis of Diabetes Mellitus. ADA recommended reference range Performed By: #### L IPASE, CBC, BMP, PT, PTT, HEPATIC ####[facility] [place] [address] [facility] Glucose [Mass/volume] in Uri ne by Test stripOrdered By: Jovan Hutson on 07-10-2024 Glucose Test strip (U) [Mass/Vol] Normal mg/dL Normal [facility] Hematocrit [Volume Fraction] of Blood by Automated countOrdered By: Jovan Hutson on 07-10-2024 Hematocrit (Bld) [Volume fraction] 43.3 % Normal 34.0-46.4 [facility] Comment on above: Performed By: #### L IPASE, CBC, BMP, PT, PTT, HEPATIC ####[place] [address] [place] [address] [facility] Hemoglobin Test strip Ql (U) Ordered By: Jovan Hutson on 07-10-2024 Hemoglobin Ql (U) 1+ High Negative [facility] Hemoglobin [Mass/volume] in BloodOrdered By: Jovan Hutson on 07-10-2024 Hemoglobin (Bld) [Mass/Vol] 13.9 g/dL Normal 11.8-15.4 [facility] Comment on above: Performed By: #### L IPASE, CBC, BMP, PT, PTT, HEPATIC ####[place] [id number] Hepatic Panelon 07-10-2024 Albumin [Mass/Vol] 4.2 g/dL Normal 3.5-5.7 [facility] Comment on above: Performed By: #### L IPASE, CBC, BMP, PT, PTT, HEPATIC ####[address] Bilirubin,Indirect 0.3 mg/dL Normal [facility] Comment on above: Performed By: #### L IPASE, CBC, BMP, PT, PTT, HEPATIC ####[address] Bilirubin.indirect [Mass/Vol] 0.10 mg/dL Normal 0.03-0.18 [facility] Comment on above: Performed By: #### L IPASE, CBC, BMP, PT, PTT, HEPATIC ####[address] Hyaline casts [#/area] in Ur ine sediment by Automated countOrdered By: Jovan Hutson on 07-10-2024 Hyaline casts Auto (Urine sed) [#/Area] None [LPF] 0-8 [facility] INR in Platelet poor plasma by Coagulation assayOrdered By: Jovan Hutson on 07-10-2024 INR Coag (PPP) [Relative time] 1.1 {INR} Normal [facility] Comment on above: INR Therapeutic Rang e A) Pre- and Peroperative OAT started two weeks before surgery. NOT HIP SURGERY: 1.5 - 2.5 HIP SURGERY: 2 - 3B) Primary and secondary prevention of venous THROMBOSIS: 2 - 3C) Active venous thrombosis, pulmonary embolismand prevention of recurrent venous thrombosis: 2 - 3D) Prevention of arterial thromboembolismincluding patients with mechanical heart valves: 3 - 4.5 Result Comment: INR Therapeutic Range A) Pre- and Peroperative OAT started two weeks before surgery. NOT HIP SURGERY: 1.5 - 2.5 HIP SURGERY: 2 - 3 B) Primary and secondary prevention of venous THROMBOSIS: 2 - 3 C) Active venous thrombosis, pulmonary embolism and prevention of recurrent venous thrombosis: 2 - 3 D) Prevention of arterial thromboembolism including patients with mechanical heart valves: 3 - 4.5 Performed By: #### L IPASE, CBC, BMP, PT, PTT, HEPATIC ####[facility] [address] [place] [address] [place] Ketones [Presence] in Urine by Test stripOrdered By: Jovan Hutson on 07-10-2024 Ketones Ql (U) Negative Normal Negative [facility] Comment on above: Order Comment: Name Collection Type:: Clean-Voided Midstream Performed By: #### A DDONUAPLUS #### [facility] [address] [place] [address] [place] Leukocyte esterase [Presence ] in Urine by Test stripOrdered By: Jovan Hutson on 07-10-2024 Leukocyte esterase Test strip Ql (U) Negative Normal Negative [facility] Comment on above: Order Comment: Name Collection Type:: Clean-Voided Midstream Performed By: #### A DDONUAPLUS #### [facility] [address] [place] [address] [place] Leukocytes [#/area] in Urine sediment by Automated countOrdered By: Jovan Hutson on 07-10-2024 WBC Auto (Urine sed) [#/Area] 1-2 [HPF] 0-4 [facility] Leukocytes [#/volume] correc abdias for nucleated erythrocytes in Blood by Automated counOrdered By: Jovan Hutson on 07-10-2024 WBC corrected for nucl RBC Auto (Bld) [#/Vol] 8.5 10*3/uL 3.8-11.6 [facility] Leukocytes [#/volume] in Blo od by Automated countOrdered By: Jovan Hutson on 07-10-2024 WBC (Bld) [#/Vol] 8.5 10*3/uL Normal 3.8-11.6 [facility] Comment on above: Performed By: #### L IPASE, CBC, BMP, PT, PTT, HEPATIC ####[facility] [address] [place] [address] [place] Lipase [Enzymatic activity/v olume] in Serum or PlasmaOrdered By: Jovan Hutson on 07-10-2024 Lipase [Catalytic activity/Vol] 15.0 U/L Normal 11.0-82.0 [facility] Comment on above: Result Comment: PERF ORMED BY: [facility] [address] [place] [id number] PATHOLOGIST [employer]IPER MARTY SALGADO M.D. Performed By: #### L IPASE, CBC, BMP, PT, PTT, HEPATIC ####[address] Lymphocytes [#/volume] in Bl ood by Automated countOrdered By: Jovan Hutson on 07-10-2024 Lymphocytes (Bld) [#/Vol] 2.3 10*3/uL Normal 1.00-4.8 [facility] Comment on above: Performed By: #### L IPASE, CBC, BMP, PT, PTT, HEPATIC ####[address] Lymphocytes/100 leukocytes i n Blood by Automated countOrdered By: Jovan Hutson on 07-10-2024 Lymphocytes/100 WBC (Bld) 26.5 % Normal . [facility] Comment on above: Performed By: #### L IPASE, CBC, BMP, PT, PTT, HEPATIC ####[place] [id number] [facility] MCH [Entitic mass] by Automa abdias countOrdered By: Jovan Hutson on 07-10-2024 MCH (RBC) [Entitic mass] 24.3 pg Low 24.7-34.3 [facility] Comment on above: Performed By: #### L IPASE, CBC, BMP, PT, PTT, HEPATIC ####[place] [id number] [facility] MCHC Auto (RBC) [Mass/Vol]Or dered By: Jovan Hutson on 07-10-2024 MCHC (RBC) [Mass/Vol] 32.1 g/dL 32.0-35.0 [facility] MCV [Entitic volume] by Auto mated countOrdered By: Jovan Hutson on 07-10-2024 MCV (RBC) [Entitic vol] 75.5 fL Low 80-100 [facility] Comment on above: Performed By: #### L IPASE, CBC, BMP, PT, PTT, HEPATIC ####[place] [id number] Monocyte distribution width [Entitic volume] in Blood by AutomatedOrdered By: Jovan Hutson on 07-10-2024 Monocyte distribution width Auto (Bld) [Entitic vol] 20.46 % High 0.00-20.00 [facility] Comment on above: For adults in ED, MD W > 20.0 may be associated with a higher risk of sepsis during the first 12 hrs of hospital admission Mucus [Presence] in Urine by AutomatedOrdered By: Jovan Hutson on 07-10-2024 Mucus Auto Ql (U) Rare [LPF] [facility] Neutrophils [#/volume] in Bl ood by Automated countOrdered By: Jovan Hutson on 07-10-2024 Neutrophils (Bld) [#/Vol] 5.3 10*3/uL Normal 1.8-7.7 [facility] Comment on above: Performed By: #### L IPASE, CBC, BMP, PT, PTT, HEPATIC ####[place] [address] [place] [id number] [facility] Nitrite Test strip Ql (U)Ord ered By: Jovan Hutson on 07-10-2024 Nitrite Ql (U) Negative Negative [facility] No Panel InformationOrdered By: Jovan Hutson on 07-10-2024 Estimated GFR (CKD-EPI) > 60.0 mL/Min [facility] Creatinine Clearance (Chem 115.15 [facility] Nucleated erythrocytes [Pres ence] in Blood by Automated countOrdered By: Jovan Hutson on 07-10-2024 Nucleated RBC Auto Ql (Bld) 0.1 /100{WBC} 0-0.5 [facility] Partial Thromboplastin Timeo n 07-10-2024 aPTT Coag (Bld) [Time] 33.6 s Normal 25.1-36.5 [facility] Comment on above: Result Comment: A he matocrit value greater than 55% may lead to inaccurate results in coagulation testing. Patients having hematocrit values >55% require a special collection tube for coagulation studies. Please contact the laboratory at [phone] for redraw instructions. PERFORMED BY: [facility] [place] [address] PATHOLOGIST [employer]IPER MARTY SALGADO M.D. Performed By: #### L IPASE, CBC, BMP, PT, PTT, HEPATIC ####[place] [address] [place] [address] [facility] Platelet mean volume [Entiti c volume] in Blood by Automated countOrdered By: Jovan Hutson on 07-10-2024 Platelet mean volume (Bld) [Entitic vol] 7.4 fL Normal 6.3-10.7 [facility] Comment on above: Performed By: #### L IPASE, CBC, BMP, PT, PTT, HEPATIC ####[address] [address] [facility] Platelets [#/volume] in Bloo d by Automated countOrdered By: Jovan Hutson on 07-10-2024 Platelets (Bld) [#/Vol] 358 10*3/uL Normal 150-450 [facility] Comment on above: Performed By: #### L IPASE, CBC, BMP, PT, PTT, HEPATIC ####[address] [address] [facility] Potassium [Moles/volume] in Serum or PlasmaOrdered By: Jovan Hutson on 07-10-2024 Potassium [Moles/Vol] 3.7 mmol/L Normal 3.5-5.1 [facility] Comment on above: Performed By: #### L IPASE, CBC, BMP, PT, PTT, HEPATIC ####[address] [address] [facility] Protein Test strip (U) [Mass /Vol]Ordered By: Jovan Hutson on 07-10-2024 Protein (U) [Mass/Vol] Negative Negative [facility] Protein [Mass/volume] in Ser um or PlasmaOrdered By: Jovan Hutson on 07-10-2024 Protein [Mass/Vol] 7.7 g/dL Normal 6.4-8.9 [facility] Comment on above: Performed By: #### L IPASE, CBC, BMP, PT, PTT, HEPATIC ####[facility] [place] [id number] [facility] Prothrombin time (PT)Ordered By: Jovan Hutson on 07-10-2024 PT Coag (PPP) [Time] 12.9 s Normal 9.0-12.9 [facility] Comment on above: A hematocrit value g reater than 55% may lead to inaccurate results in coagulation testing. Patients having hematocrit values >55% require a special collection tube for coagulation studies. Please contact the laboratory at [phone] for redraw instructions. Result Comment: A he matocrit value greater than 55% may lead to inaccurate results in coagulation testing. Patients having hematocrit values >55% require a special collection tube for coagulation studies. Please contact the laboratory at [phone] for redraw instructions. Performed By: #### L IPASE, CBC, BMP, PT, PTT, HEPATIC ####[place] [id number] Serum globulin measurement b y calculation (mass/volume)Ordered By: Jovan Hutson on 07-10-2024 Globulin (S) [Mass/Vol] 3.5 g/dL [facility] Comment on above: Performed By: #### L IPASE, CBC, BMP, PT, PTT, HEPATIC ####[place] [address] [place] [id number] [facility] Serum or plasma albumin/glob ulin mass ratioOrdered By: Jovan Hutson on 07-10-2024 Albumin/Globulin [Mass ratio] 1.2 {ratio} [facility] Comment on above: Performed By: #### L IPASE, CBC, BMP, PT, PTT, HEPATIC ####[place] [id number] [facility] Serum or plasma anion gap de terminationOrdered By: Jovan Hutson on 07-10-2024 Anion gap [Moles/Vol] 11.0 mmol/L Normal 6.0-15.0 [facility] Comment on above: Performed By: #### L IPASE, CBC, BMP, PT, PTT, HEPATIC ####[place] [id number] [address] Serum or plasma non-glucuron idated bilirubin measurement (mass/volume)Ordered By: Jovan Hutson on 07-10-2024 Bilirubin.indirect [Mass/Vol] 0.3 mg/dL [facility] Sodium [Moles/volume] in Ser um or PlasmaOrdered By: Jovan Hutson on 07-10-2024 Sodium [Moles/Vol] 142 mmol/L Normal 136-145 [facility] Comment on above: Performed By: #### L IPASE, CBC, BMP, PT, PTT, HEPATIC ####[address] Specific gravity of Urine by RefractometryOrdered By: Jovan Hutson on 07-10-2024 Specific gravity Refractometry (U) [Rel density] > 1.050 High 1.001-1.030 [facility] Comment on above: Rechecked by refract ometer Urea nitrogen [Mass/volume] in Serum or PlasmaOrdered By: Jovan Hutson on 07-10-2024 Urea nitrogen [Mass/Vol] 8 mg/dL Normal 7-25 [facility] Comment on above: Performed By: #### L IPASE, CBC, BMP, PT, PTT, HEPATIC ####[place] [id number] [address] Urine appearanceOrdered By: Jovan Hutson on 07-10-2024 Appearance (U) Clear Normal Clear [facility] Comment on above: Order Comment: Name Collection Type:: Clean-Voided Midstream Performed By: #### A DDONUAPLUS #### [address] Urobilinogen Test strip (U) [Mass/Vol]Ordered By: Jovan Hutson on 07-10-2024 Urobilinogen (U) [Mass/Vol] Normal mg/dL Normal [facility] pH of Urine by Test stripOrd ered By: Jovan Hutson on 07-10-2024 pH (U) 6.5 [pH] Normal 5.0-9.0 [facility] Comment on above: Order Comment: Name Collection Type:: Clean-Voided Midstream Performed By: #### A DDONUAPLUS #### [address] US breast BI limitedon 03-08 US breast BI limited [facility] [place] [address] [place] [address] Ultrasound Report Signed Patient: Loy Tam MR#: [id number] : 1980 Acct:[id number] Age/Sex: 43 / F ADM Date: 03/08/24 Loc: [facility] Room: Type: [facility] Attending Dr: John Luu DO, Resident Ordering [...] Alan Matta M.D.03/08/2024 3:19 PM Dictation Location: [facility] Tech: Dana Paredes Transcribed By: ILIA 03/08/24 1519 Dictated By: Alan Matta II, MD 03/08/24 1516 Signed By: 03/08/24 1519 Normal [facility] MM screening mammo BI w/CADo n 12-02-2023 MM screening mammo BI w/CAD [facility] [place] [address] [place], [place] [id number] Mammography Report Signed Patient: Loy Tam MR#: [id number] : 1980 Acct:[id number] Age/Sex: 42 / F ADM Date: 12/02/23 Loc: [place] Room: Type: [facility] Attending Dr: Referral Self Copies to: [facility] SELF,REFERRAL Ordering Provider: SELF,REFERRAL Date [...] Sarah Mistry M.D.12/02/2023 3:31 PM Dictation Location: [facility] Transcribed By: [facility] 12/02/23 1531 Dictated By: Sarah Mistry MD 12/02/23 1523 Signed By: 12/02/23 1531 Normal [facility] FE PROon 10-07-2023 % Iron Saturation 12.3 % Low 20-50 [facility] Comment on above: Performed By: #### F E PRO, TSH3 ####[address] [address] [facility] Total Iron Binding Capacity 389 ug/dL Normal 255-450 [facility] Comment on above: Performed By: #### F E PRO, TSH3 ####[address] [address] [facility] Ferritin [Mass/volume] in Se rum or PlasmaOrdered By: Teo Heath on 10-07-2023 Ferritin [Mass/Vol] 23.1 ng/mL Normal 11.0-306.8 [facility] Comment on above: Performed By: #### F E PRO, TSH3 ####[place] [id number] [facility] Iron [Mass/volume] in Serum or PlasmaOrdered By: Teo Heath on 10-07-2023 Iron [Mass/Vol] 48 ug/dL Low 50-212 [facility] Comment on above: Performed By: #### F E PRO, TSH3 ####[place] [id number] [facility] Iron binding capacity [Mass/ volume] in Serum or PlasmaOrdered By: Teo Heath on 10-07-2023 Iron binding capacity [Mass/Vol] 389 ug/dL 255-450 [facility] Iron saturation [Mass Fracti on] in Serum or PlasmaOrdered By: Teo Heath on 10-07-2023 Iron saturation [Mass fraction] 12.3 % 20-50 [facility] Thyrotropin [Units/volume] i n Serum or PlasmaOrdered By: Teo Heath on 10-07-2023 TSH Qn 0.91 m[IU]/L Normal 0.45-5.33 [facility] Comment on above: Result Comment: PERF ORMED BY: [facility] [address] [place] [id number] PATHOLOGIST [employer] MARTY SALGADO M.D. Performed By: #### F Marry PRO, TSH3 ####[facility] [id number] [place] [id number] [facility] Transferrin [Mass/volume] in Serum or PlasmaOrdered By: Teo Heath on 10-07-2023 Transferrin [Mass/Vol] 278 mg/dL Normal 203-362 [facility] Comment on above: Performed By: #### F E PRO, TSH3 ####[facility] [id number] [place] [id number] [facility] Alanine aminotransferase [En zymatic activity/volume] in Serum or PlasmaOrdered By: Marquise Disla on 07-13-2023 ALT [Catalytic activity/Vol] 25 U/L 7-52 [facility] Albumin [Mass/volume] in Ser um or Plasma by Bromocresol green (BCG) dye binding methoOrdered By: Marquise Disla on 07-13-2023 Albumin BCG dye [Mass/Vol] 4.2 g/dL 3.5-5.7 [facility] Alkaline phosphatase [Enzyma tic activity/volume] in Serum or PlasmaOrdered By: Marquise Disla on 07-13-2023 ALP [Catalytic activity/Vol] 113 U/L 34-104 [facility] Aspartate aminotransferase [ Enzymatic activity/volume] in Serum or PlasmaOrdered By: Marquise Disla on 07-13-2023 AST [Catalytic activity/Vol] 13 U/L 13-39 [facility] Basophils Auto (Bld) [#/Vol] Ordered By: Marquise Disla on 07-13-2023 Basophils (Bld) [#/Vol] 0.1 10*3/uL 0.0-0.2 [facility] Basophils/100 WBC Auto (Bld) Ordered By: Marquise Disla on 07-13-2023 Basophils/100 WBC (Bld) 1.2 % . [facility] Bilirubin.total [Mass/volume ] in Serum or PlasmaOrdered By: Marquise Disla on 07-13-2023 Bilirubin [Mass/Vol] 0.6 mg/dL 0.3-1.0 [facility] Calcium [Mass/volume] in Ser um or PlasmaOrdered By: Marquise Disla on 07-13-2023 Calcium [Mass/Vol] 9.6 mg/dL 8.6-10.3 [facility] Carbon dioxide, total [Moles /volume] in Serum or PlasmaOrdered By: Marquise Disla on 07-13-2023 CO2 [Moles/Vol] 27.9 mmol/L 21.0-31.0 [facility] Chloride [Moles/volume] in S brian or PlasmaOrdered By: Marquise Disla on 07-13-2023 Chloride [Moles/Vol] 106 mmol/L 98-107 [facility] Cholesterol [Mass/volume] in Serum or PlasmaOrdered By: Marquise Disla on 07-13-2023 Cholesterol [Mass/Vol] 208 mg/dL 140-200 [facility] Comment on above: Chol less than 200 m g/dl low riskChol 201-239 mg/dl borderline riskChol 240 mg/dl and greater high risk Cholesterol in LDL Calc [Mas s/Vol]Ordered By: Marquise Disla on 07-13-2023 Cholesterol in LDL [Mass/Vol] 150 mg/dL 0-100 [facility] Comment on above: LDL ATP III CLASSIFI CATIONLDL less than 100 mg/dL OptimalLDL 100-129 mg/dL Near or above optimalLDL 130-159 mg/dL Borderline highLDL 160-189 mg/dL HighLDL greater than 189 mg/dL Very high Cholesterol in LDL [Mass/vol ume] in Serum or PlasmaOrdered By: Marquise Disla on 07-13-2023 Cholesterol in LDL [Mass/Vol] 171 mg/dL 0-100 [facility] Comment on above: LDL ATP III CLASSIFI CATIONLDL less than 100 mg/dL OptimalLDL 100-129 mg/dL Near or above optimalLDL 130-159 mg/dL Borderline highLDL 160-189 mg/dL HighLDL greater than 189 mg/dL Very high Cholesterol in VLDL Calc [Ma ss/Vol]Ordered By: Marquise Disla on 07-13-2023 Cholesterol in VLDL [Mass/Vol] 17 mg/dL [facility] Creatinine [Mass/volume] in Serum or PlasmaOrdered By: Marquise Disla on 07-13-2023 Creatinine [Mass/Vol] 0.69 mg/dL 0.60-1.20 [facility] Eosinophils Auto (Bld) [#/Vo l]Ordered By: Marquise Disla on 07-13-2023 Eosinophils (Bld) [#/Vol] 0.3 10*3/uL 0.0-0.45 [facility] Eosinophils/100 WBC Auto (Bl d)Ordered By: Marquise Disla on 07-13-2023 Eosinophils/100 WBC (Bld) 3.3 % . [facility] Erythrocyte distribution wid th Auto (RBC) [Ratio]Ordered By: Marquise Disla on 07-13-2023 Erythrocyte distribution width (RBC) [Ratio] 16.1 % 11.9-15.3 [facility] Globulin Calc (S) [Mass/Vol] Ordered By: Marquise Disla on 07-13-2023 Globulin (S) [Mass/Vol] 3.4 g/dL [facility] Glucose [Mass/volume] in Ser um or PlasmaOrdered By: Marquise Disla on 07-13-2023 Glucose [Mass/Vol] 87 mg/dL 70-100 [facility] Comment on above: ADA recommended refe rence rangeRandom Glucose Reference Range is dependent on time and content of last meal. Glucose of more than 200 mg/dL in a nonstressed, ambulatory subject supports the diagnosis of Diabetes Mellitus. Hematocrit Auto (Bld) [Volum e fraction]Ordered By: Marquise Disla on 07-13-2023 Hematocrit (Bld) [Volume fraction] 39.7 % 34.0-46.4 [facility] Hemoglobin [Mass/volume] in BloodOrdered By: Marquise Disla on 07-13-2023 Hemoglobin (Bld) [Mass/Vol] 12.8 g/dL 11.8-15.4 [facility] Leukocytes [#/volume] correc abdias for nucleated erythrocytes in Blood by Automated counOrdered By: Marquise Disla on 07-13-2023 WBC corrected for nucl RBC Auto (Bld) [#/Vol] 10.3 10*3/uL 3.8-11.6 [facility] Lymphocytes Auto (Bld) [#/Vo l]Ordered By: Marquise Disla on 07-13-2023 Lymphocytes (Bld) [#/Vol] 3.2 10*3/uL 1.00-4.8 [facility] Lymphocytes/100 WBC Auto (Bl d)Ordered By: Marquise Disla on 07-13-2023 Lymphocytes/100 WBC (Bld) 31.0 % . [facility] MCH Auto (RBC) [Entitic mass ]Ordered By: Marquise Disla on 07-13-2023 MCH (RBC) [Entitic mass] 23.1 pg 24.7-34.3 [facility] MCHC Auto (RBC) [Mass/Vol]Or dered By: Marquise Disla on 07-13-2023 MCHC (RBC) [Mass/Vol] 32.2 g/dL 32.0-35.0 [facility] MCV Auto (RBC) [Entitic vol] Ordered By: Marquise Disla on 07-13-2023 MCV (RBC) [Entitic vol] 71.6 fL 80-100 [facility] Monocytes Auto (Bld) [#/Vol] Ordered By: Marquise Disla on 07-13-2023 Monocytes (Bld) [#/Vol] 0.7 10*3/uL 0.0-0.8 [facility] Monocytes/100 WBC Auto (Bld) Ordered By: Marquise Disla on 07-13-2023 Monocytes/100 WBC (Bld) 6.5 % . [facility] Neutrophils Auto (Bld) [#/Vo l]Ordered By: Marquise Disla on 07-13-2023 Neutrophils (Bld) [#/Vol] 6.0 10*3/uL 1.8-7.7 [facility] Neutrophils/100 WBC Auto (Bl d)Ordered By: Marquise Disla on 07-13-2023 Neutrophils/100 WBC (Bld) 58.0 % . [facility] No Panel InformationOrdered By: Marquise Disla on 07-13-2023 Estimated GFR (CKD-EPI) > 60.0 mL/Min [facility] Creatinine Clearance (Chem N/A [facility] Nucleated erythrocytes [Pres ence] in Blood by Automated countOrdered By: Marquise Disla on 07-13-2023 Nucleated RBC Auto Ql (Bld) 0.2 /100{WBC} 0-0.5 [facility] Platelet mean volume Auto (B ld) [Entitic vol]Ordered By: Marquise Disla on 07-13-2023 Platelet mean volume (Bld) [Entitic vol] 7.2 fL 6.3-10.7 [facility] Platelets Auto (Bld) [#/Vol] Ordered By: Marquise Disla on 07-13-2023 Platelets (Bld) [#/Vol] 394 10*3/uL 150-450 [facility] Potassium [Moles/volume] in Serum or PlasmaOrdered By: Marquise Disla on 07-13-2023 Potassium [Moles/Vol] 4.3 mmol/L 3.5-5.1 [facility] Protein [Mass/volume] in Ser um or PlasmaOrdered By: Marquise Disla on 07-13-2023 Protein [Mass/Vol] 7.6 g/dL 6.4-8.9 [facility] RBC Auto (Bld) [#/Vol]Ordere d By: Marquise Disla on 07-13-2023 RBC (Bld) [#/Vol] 5.55 10*6/uL 3.60-5.00 [facility] Serum or plasma albumin/glob ulin mass ratioOrdered By: Marquise iDsla on 07-13-2023 Albumin/Globulin [Mass ratio] 1.2 {ratio} [facility] Serum or plasma anion gap de terminationOrdered By: Marquise Disla on 07-13-2023 Anion gap [Moles/Vol] 11.4 mmol/L 6.0-15.0 [facility] Serum or plasma high density lipoprotein (HDL) cholesterol measurementOrdered By: Marquise Disla on 07-13-2023 Cholesterol in HDL [Mass/Vol] 40 mg/dL 23-92 [facility] Comment on above: HDL CHOL ATP-III CLA SSIFICATION Cardiovascular RiskHDL > or equal to 60 mg/dL LOWHDL < 40 mg/dL HIGH Serum or plasma total choles terol/high density lipoprotein (HDL) cholesterol mass ratOrdered By: Marquise Disla on 07-13-2023 Cholesterol.total/Chol esterol in HDL [Mass ratio] 5.2 {ratio} <5.0 [facility] Sodium [Moles/volume] in Ser um or PlasmaOrdered By: Marquise Disla on 07-13-2023 Sodium [Moles/Vol] 141 mmol/L 136-145 [facility] Triglyceride [Mass/volume] i n Serum or PlasmaOrdered By: Marquise Disla on 07-13-2023 Triglyceride [Mass/Vol] 88 mg/dL 0-149 [facility] Comment on above: TRIG ATP III CLASSIF ICATIONTRIG less than 150 mg/dL NormalTRIG 150-199 mg/dL Borderline highTRIG 200-500 mg/dL High TRIG greater than 500 mg/dL Very highStandard traceable to the Center for Disease Conrtrol and Prevention (CDC) test method. Urea nitrogen [Mass/volume] in Serum or PlasmaOrdered By: Marquise Disla on 07-13-2023 Urea nitrogen [Mass/Vol] 10 mg/dL 7-25 [facility] Vitamin B12 ser/plasOrdered By: Marquise Disla on 07-13-2023 Cobalamin (Vitamin B12) [Mass/Vol] 324 pg/mL 180-914 [facility] WBC Auto (Bld) [#/Vol]Ordere d By: Marquise Disla on 07-13-2023 WBC (Bld) [#/Vol] 10.3 10*3/uL 3.8-11.6 [facility] Automated erythrocytes count in urine sediment (number/area)Ordered By: Agustin Sandra on 07-01-2023 RBC Auto (Urine sed) [#/Area] 5-9 [HPF] 0-4 [facility] Automated leukocytes count i n urine sediment (number/area)Ordered By: Agustin Sandra on 07-01-2023 WBC Auto (Urine sed) [#/Area] 0-1 [HPF] 0-4 [facility] Basophils Auto (Bld) [#/Vol] Ordered By: Agustin Sandra on 07-01-2023 Basophils (Bld) [#/Vol] 0.1 10*3/uL 0.0-0.2 [facility] Basophils/100 WBC Auto (Bld) Ordered By: Agustin Sandra on 07-01-2023 Basophils/100 WBC (Bld) 0.6 % . [facility] Bilirubin Test strip Ql (U)O rdered By: Agustin Sandra on 07-01-2023 Bilirubin Ql (U) Negative Negative [facility] Calcium [Mass/volume] in Ser um or PlasmaOrdered By: Agustin Sandra on 07-01-2023 Calcium [Mass/Vol] 9.3 mg/dL 8.6-10.3 [facility] Carbon dioxide, total [Moles /volume] in Serum or PlasmaOrdered By: Agustin Sandra on 07-01-2023 CO2 [Moles/Vol] 27.9 mmol/L 21.0-31.0 [facility] Chloride [Moles/volume] in S brian or PlasmaOrdered By: Agustin Sandra on 07-01-2023 Chloride [Moles/Vol] 104 mmol/L 98-107 [facility] Color Auto (U)Ordered By: Naun Sandra on 07-01-2023 Color (U) Yellow Yellow [facility] Creatinine [Mass/volume] in Serum or PlasmaOrdered By: Agustin Sandra on 07-01-2023 Creatinine [Mass/Vol] 0.79 mg/dL 0.60-1.20 [facility] Eosinophils Auto (Bld) [#/Vo l]Ordered By: Agustin Sandra on 07-01-2023 Eosinophils (Bld) [#/Vol] 0.1 10*3/uL 0.0-0.45 [facility] Eosinophils/100 WBC Auto (Bl d)Ordered By: Agustin Sandra on 07-01-2023 Eosinophils/100 WBC (Bld) 1.1 % . [facility] Erythrocyte distribution wid th Auto (RBC) [Ratio]Ordered By: Agustin Sandra on 07-01-2023 Erythrocyte distribution width (RBC) [Ratio] 16.1 % 11.9-15.3 [facility] Glucose [Mass/volume] in Ser um or PlasmaOrdered By: Agustin Sandra on 07-01-2023 Glucose [Mass/Vol] 92 mg/dL 70-100 [facility] Comment on above: ADA recommended refe rence rangeRandom Glucose Reference Range is dependent on time and content of last meal. Glucose of more than 200 mg/dL in a nonstressed, ambulatory subject supports the diagnosis of Diabetes Mellitus. HCG ( test) IA.rapi d Ql (U)Ordered By: Agustin Sandra on 07-01-2023 HCG ( test) Ql (U) Negative [facility] Hematocrit Auto (Bld) [Volum e fraction]Ordered By: Agustin Sandra on 07-01-2023 Hematocrit (Bld) [Volume fraction] 38.1 % 34.0-46.4 [facility] Hemoglobin [Mass/volume] in BloodOrdered By: Agustin Sandra on 07-01-2023 Hemoglobin (Bld) [Mass/Vol] 12.3 g/dL 11.8-15.4 [facility] Ketones Auto test strip (U) [Mass/Vol]Ordered By: Agustin Sandra on 07-01-2023 Ketones (U) [Mass/Vol] Negative Negative [facility] Laboratory - UrinalysisOrder ed By: Agustin Sandra on 07-01-2023 Hyaline casts LM Ql (Urine sed) None seen [LPF] 0-8 [facility] Leukocytes [#/volume] correc abdias for nucleated erythrocytes in Blood by Automated counOrdered By: Agustin Sandra on 07-01-2023 WBC corrected for nucl RBC Auto (Bld) [#/Vol] 8.2 10*3/uL 3.8-11.6 [facility] Lymphocytes Auto (Bld) [#/Vo l]Ordered By: Agustin Sandra on 07-01-2023 Lymphocytes (Bld) [#/Vol] 0.7 10*3/uL 1.00-4.8 [facility] Lymphocytes/100 WBC Auto (Bl d)Ordered By: Agustin Sandra on 07-01-2023 Lymphocytes/100 WBC (Bld) 8.1 % . [facility] MCH Auto (RBC) [Entitic mass ]Ordered By: Agustin Sandra on 07-01-2023 MCH (RBC) [Entitic mass] 23.0 pg 24.7-34.3 [facility] MCHC Auto (RBC) [Mass/Vol]Or dered By: Agustin Sandra on 07-01-2023 MCHC (RBC) [Mass/Vol] 32.3 g/dL 32.0-35.0 [facility] MCV Auto (RBC) [Entitic vol] Ordered By: Agustin Sandra on 07-01-2023 MCV (RBC) [Entitic vol] 71.2 fL 80-100 [facility] Monocyte distribution width [Entitic volume] in Blood by AutomatedOrdered By: Agustin Sandra on 07-01-2023 Monocyte distribution width Auto (Bld) [Entitic vol] 24.10 % 0.00-20.00 [facility] Comment on above: For adults in ED, MD W > 20.0 may be associated with a higher risk of sepsis during the first 12 hrs of hospital admission Monocytes Auto (Bld) [#/Vol] Ordered By: Agustin Sandra on 07-01-2023 Monocytes (Bld) [#/Vol] 0.7 10*3/uL 0.0-0.8 [facility] Monocytes/100 WBC Auto (Bld) Ordered By: Agustin Sandra on 07-01-2023 Monocytes/100 WBC (Bld) 8.5 % . [facility] Neutrophils Auto (Bld) [#/Vo l]Ordered By: Agustin Sandra on 07-01-2023 Neutrophils (Bld) [#/Vol] 6.7 10*3/uL 1.8-7.7 [facility] Neutrophils/100 WBC Auto (Bl d)Ordered By: Agustin Sandra on 07-01-2023 Neutrophils/100 WBC (Bld) 81.7 % . [facility] Nitrite Test strip Ql (U)Ord ered By: Agustin Sandra on 07-01-2023 Nitrite Ql (U) Negative Negative [facility] No Panel InformationOrdered By: Agustin Sandra on 07-01-2023 Estimated GFR (CKD-EPI) > 60.0 mL/Min [facility] Creatinine Clearance (Chem 127.26 [facility] Nucleated erythrocytes [Pres ence] in Blood by Automated countOrdered By: Agustin Sandra on 07-01-2023 Nucleated RBC Auto Ql (Bld) 0.0 /100{WBC} 0-0.5 [facility] Platelet mean volume Auto (B ld) [Entitic vol]Ordered By: Agustin Sandra on 07-01-2023 Platelet mean volume (Bld) [Entitic vol] 7.4 fL 6.3-10.7 [facility] Platelets Auto (Bld) [#/Vol] Ordered By: Agustin Sandra on 07-01-2023 Platelets (Bld) [#/Vol] 320 10*3/uL 150-450 [facility] Potassium [Moles/volume] in Serum or PlasmaOrdered By: Agustin Sandra on 07-01-2023 Potassium [Moles/Vol] 3.9 mmol/L 3.5-5.1 [facility] Protein Auto test strip (U) [Mass/Vol]Ordered By: Agustin Sandra on 07-01-2023 Protein (U) [Mass/Vol] Negative Negative [facility] RBC Auto (Bld) [#/Vol]Ordere d By: Agustin Sandra on 07-01-2023 RBC (Bld) [#/Vol] 5.35 10*6/uL 3.60-5.00 [facility] Serum or plasma anion gap de terminationOrdered By: Agustin Sandra on 07-01-2023 Anion gap [Moles/Vol] 11.0 mmol/L 6.0-15.0 [facility] Sodium [Moles/volume] in Ser um or PlasmaOrdered By: Agustin Sandra on 07-01-2023 Sodium [Moles/Vol] 139 mmol/L 136-145 [facility] Specific gravity Auto test s trip (U) [Rel density]Ordered By: Agustin Sandra on 07-01-2023 Specific gravity (U) [Rel density] 1.012 1.001-1.030 [facility] Squamous epithelial cells de tection in urine sediment by light microscopyOrdered By: Agustin Sandra 07-01-2023 Epithelial cells.squamous LM Ql (Urine sed) 0-1 [HPF] 0-2 [facility] Urea nitrogen [Mass/volume] in Serum or PlasmaOrdered By: Agustin Sandra on 07-01-2023 Urea nitrogen [Mass/Vol] 7 mg/dL 7-25 [facility] Urine bacteria detection by automated methodOrdered By: Agustin Sandra on 07-01-2023 Bacteria Auto Ql (U) None seen None Seen [facility] Urine clarity by refractomet ry automatedOrdered By: Agustin Sandra on 07-01-2023 Clarity Refractometry automated (U) Cloudy Clear [facility] Urine glucose measurement by automated test strip (mass/volume)Ordered By: Agustin Sandra on 07-01-2023 Glucose Auto test strip (U) [Mass/Vol] Normal mg/dL Normal [facility] Urine hemoglobin detection b y automated test stripOrdered By: Agustin Sandra on 07-01-2023 Hemoglobin Auto test strip Ql (U) Trace Negative [facility] Urine leukocyte esterase det ection by automated test stripOrdered By: Agustin Sandra on 07-01-2023 Leukocyte esterase Auto test strip Ql (U) Negative Negative [facility] Urobilinogen Auto test strip (U) [Mass/Vol]Ordered By: Agustin Sandra on 07-01-2023 Urobilinogen (U) [Mass/Vol] Normal mg/dL Normal [facility] WBC Auto (Bld) [#/Vol]Ordere d By: Agustin Sandra on 07-01-2023 WBC (Bld) [#/Vol] 8.2 10*3/uL 3.8-11.6 [facility] pH Auto test strip (U)Ordere d By: Agustin Sandra on 07-01-2023 pH (U) 8.5 [pH] 5.0-9.0 [facility] Basophils Auto (Bld) [#/Vol] Ordered By: Lars Guerra on 05-31-2023 Basophils (Bld) [#/Vol] 0.1 10*3/uL 0.0-0.2 [facility] Basophils/100 WBC Auto (Bld) Ordered By: Lars Guerra on 05-31-2023 Basophils/100 WBC (Bld) 1.5 % . [facility] Calcium [Mass/volume] in Ser um or PlasmaOrdered By: Lars Guerra on 05-31-2023 Calcium [Mass/Vol] 9.1 mg/dL 8.6-10.3 [facility] Carbon dioxide, total [Moles /volume] in Serum or PlasmaOrdered By: Lars Guerra on 05-31-2023 CO2 [Moles/Vol] 29.3 mmol/L 21.0-31.0 [facility] Chloride [Moles/volume] in S brian or PlasmaOrdered By: Lars Guerra on 05-31-2023 Chloride [Moles/Vol] 106 mmol/L 98-107 [facility] Creatinine [Mass/volume] in Serum or PlasmaOrdered By: Lars Guerra on 05-31-2023 Creatinine [Mass/Vol] 0.87 mg/dL 0.60-1.20 [facility] Eosinophils Auto (Bld) [#/Vo l]Ordered By: Lars Guerra on 05-31-2023 Eosinophils (Bld) [#/Vol] 0.3 10*3/uL 0.0-0.45 [facility] Eosinophils/100 WBC Auto (Bl d)Ordered By: Lars Guerra on 05-31-2023 Eosinophils/100 WBC (Bld) 3.5 % . [facility] Erythrocyte distribution wid th Auto (RBC) [Ratio]Ordered By: Lars Guerra on 05-31-2023 Erythrocyte distribution width (RBC) [Ratio] 16.2 % 11.9-15.3 [facility] Glucose [Mass/volume] in Ser um or PlasmaOrdered By: Lars Guerra on 05-31-2023 Glucose [Mass/Vol] 91 mg/dL 70-100 [facility] Comment on above: ADA recommended refe rence rangeRandom Glucose Reference Range is dependent on time and content of last meal. Glucose of more than 200 mg/dL in a nonstressed, ambulatory subject supports the diagnosis of Diabetes Mellitus. Hematocrit Auto (Bld) [Volum e fraction]Ordered By: Lars Guerra on 05-31-2023 Hematocrit (Bld) [Volume fraction] 38.8 % 34.0-46.4 [facility] Hemoglobin [Mass/volume] in BloodOrdered By: Lars Guerra on 05-31-2023 Hemoglobin (Bld) [Mass/Vol] 12.4 g/dL 11.8-15.4 [facility] Leukocytes [#/volume] correc abdias for nucleated erythrocytes in Blood by Automated counOrdered By: Lars Guerra on 05-31-2023 WBC corrected for nucl RBC Auto (Bld) [#/Vol] 9.9 10*3/uL 3.8-11.6 [facility] Lymphocytes Auto (Bld) [#/Vo l]Ordered By: Lars Guerra on 05-31-2023 Lymphocytes (Bld) [#/Vol] 3.7 10*3/uL 1.00-4.8 [facility] Lymphocytes/100 WBC Auto (Bl d)Ordered By: Lars Guerra on 05-31-2023 Lymphocytes/100 WBC (Bld) 37.9 % . [facility] MCH Auto (RBC) [Entitic mass ]Ordered By: Lars Guerra on 05-31-2023 MCH (RBC) [Entitic mass] 23.0 pg 24.7-34.3 [facility] MCHC Auto (RBC) [Mass/Vol]Or dered By: Lars Guerra on 05-31-2023 MCHC (RBC) [Mass/Vol] 31.9 g/dL 32.0-35.0 [facility] MCV Auto (RBC) [Entitic vol] Ordered By: Lars Guerra on 05-31-2023 MCV (RBC) [Entitic vol] 72.0 fL 80-100 [facility] Monocyte distribution width [Entitic volume] in Blood by AutomatedOrdered By: Lars Guerra on 05-31-2023 Monocyte distribution width Auto (Bld) [Entitic vol] 18.79 % 0.00-20.00 [facility] Monocytes Auto (Bld) [#/Vol] Ordered By: Lars Guerra on 05-31-2023 Monocytes (Bld) [#/Vol] 0.5 10*3/uL 0.0-0.8 [facility] Monocytes/100 WBC Auto (Bld) Ordered By: Lars Guerra on 05-31-2023 Monocytes/100 WBC (Bld) 5.1 % . [facility] Neutrophils Auto (Bld) [#/Vo l]Ordered By: Lars Guerra on 05-31-2023 Neutrophils (Bld) [#/Vol] 5.1 10*3/uL 1.8-7.7 [facility] Neutrophils/100 WBC Auto (Bl d)Ordered By: Lars Guerra on 05-31-2023 Neutrophils/100 WBC (Bld) 52.0 % . [facility] No Panel InformationOrdered By: Lars Guerra on 05-31-2023 Estimated GFR (CKD-EPI) > 60.0 mL/Min [facility] Creatinine Clearance (Chem 112.72 [facility] Nucleated erythrocytes [Pres ence] in Blood by Automated countOrdered By: Lars Guerra on 05-31-2023 Nucleated RBC Auto Ql (Bld) 0.2 /100{WBC} 0-0.5 [facility] Platelet mean volume Auto (B ld) [Entitic vol]Ordered By: Lars Guerra on 05-31-2023 Platelet mean volume (Bld) [Entitic vol] 7.3 fL 6.3-10.7 [facility] Platelets Auto (Bld) [#/Vol] Ordered By: Lars Guerra on 05-31-2023 Platelets (Bld) [#/Vol] 349 10*3/uL 150-450 [facility] Potassium [Moles/volume] in Serum or PlasmaOrdered By: Lars Guerra on 05-31-2023 Potassium [Moles/Vol] 3.5 mmol/L 3.5-5.1 [facility] RBC Auto (Bld) [#/Vol]Ordere d By: Lars Guerra on 05-31-2023 RBC (Bld) [#/Vol] 5.39 10*6/uL 3.60-5.00 [facility] Serum or plasma anion gap de terminationOrdered By: Lars Guerra on 05-31-2023 Anion gap [Moles/Vol] 10.2 mmol/L 6.0-15.0 [facility] Sodium [Moles/volume] in Ser um or PlasmaOrdered By: Lars Guerra on 05-31-2023 Sodium [Moles/Vol] 142 mmol/L 136-145 [facility] Troponin I.cardiac [Mass/vol ume] in Serum or Plasma by Detection limit <= 0.01 ng/Ordered By: Lars Guerra on 05-31-2023 Troponin I.cardiac DL <= 0.01 ng/mL [Mass/Vol] 5.9 pg/mL 0.0-15.0 [facility] Urea nitrogen [Mass/volume] in Serum or PlasmaOrdered By: Lars Guerra on 05-31-2023 Urea nitrogen [Mass/Vol] 9 mg/dL 7-25 [facility] WBC Auto (Bld) [#/Vol]Ordere d By: Lars Guerra on 05-31-2023 WBC (Bld) [#/Vol] 9.9 10*3/uL 3.8-11.6 [facility] Serum heterophile antibody d etection by latex agglutinationOrdered By: Arnoldo Pérez on 01-19-2023 Heterophile Ab LA Ql (S) Negative Negative [facility] Streptococcus pyogenes antig en detectionOrdered By: Arnoldo Pérez on 01-19-2023 S. pyogenes Ag Ql (Unsp spec) [facility] COVID CepheidOrdered By: Radha Cooper on 01-08-2023 SARS-CoV-2 (COVID-19) Ab IA Ql Negative Negative [facility] Comment on above: This is a duplicate Cepheid Xpert Xpress CoV-2/Flu/RSV Plus RNA by RT-PCR result to be used for statistical tracking purpose only. SARS-CoV-2 (COVID-19) RNA AMBROSE+probe Ql (Unsp spec) [facility] Streptococcus pyogenes antig en detectionOrdered By: Caitlyn Cooper on 01-04-2023 S. pyogenes Ag Ql (Unsp spec) [facility] COVID CepheidOrdered By: Cachorro Breaux on 11-17-2022 SARS-CoV-2 (COVID-19) Ab IA Ql Negative Negative [facility] Comment on above: This is a duplicate Cepheid Xpert Xpress CoV-2/Flu/RSV Plus RNA by RT-PCR result to be used for statistical tracking purpose only. SARS-CoV-2 (COVID-19) RNA AMBROSE+probe Ql (Unsp spec) [facility] SARS-CoV-2 (COVID-19) RNA AMBROSE+probe Ql (Unsp spec) [facility] COVID-19 SOFIAOrdered By: Jose Pearl on 08-23-2022 SARS-CoV+SARS-CoV-2 (COVID-19) Ag IA.rapid Ql (Resp) Negative Negative [facility] Comment on above: This is a duplicate Lilibeth SARS Antigen (REGINO) result to be used for statistical tracking purpose only. No Panel InformationOrdered By: Praveen Pearl on 08-23-2022 SARS Antigen (LFIA) [facility] POINT OF CARE GLUCOSEon 05-0 Glucose [Mass/Vol] 116 mg/dL Critically high 74-[address] [facility] Comment on above: Performed By: #### P OCGLUC #### [facility] [address] [address] [address] Mai Salamanca PREG HCG QUALon 03-30-2022 , QUAL Negative Normal NEGATIVE [facility] Comment on above: Performed By: #### P REG #### [facility] [address] [address] [address] Mai Salamanca Vital Signs Date Time Vital Sign Value Performing Clinician Facility 08-23-2024 13:37-0400 Diastolic blood pressure 86 mm[Hg] [facility] Work Phone: [facility] 08-23-2024 13:37-0400 Heart rate 86 /min [facility] Work Phone: [facility] 08-23-2024 13:37-0400 Respiratory rate 16 /min [facility] Work Phone: [facility] 08-23-2024 13:37-0400 SaO2% (BldA) [Mass fraction] 100 % [facility] Work Phone: [facility] 08-23-2024 13:37-0400 Systolic blood pressure 130 mm[Hg] [facility] Work Phone: [facility] 08-23-2024 12:43-0400 Body height 175.26 cm [facility] Work Phone: [facility] 08-23-2024 12:43-0400 Body weight 111.58 kg [facility] Work Phone: [facility] 08-23-2024 12:40-0400 Body temperature 97.9 [degF] [facility] Work Phone: [facility] 08-07-2024 11:03-0400 Body height 176.53 cm [facility] Work Phone: [facility] 08-07-2024 11:03-0400 Body temperature 99 [degF] [facility] Work Phone: [facility] 08-07-2024 11:03-0400 Body weight 112 kg [facility] Work Phone: [facility] 08-07-2024 11:03-0400 Diastolic blood pressure 83 mm[Hg] [facility] Work Phone: [facility] 08-07-2024 11:03-0400 Heart rate 105 /min [facility] Work Phone: [facility] 08-07-2024 11:03-0400 Respiratory rate 18 /min [facility] Work Phone: [facility] 08-07-2024 11:03-0400 SaO2% (BldA) [Mass fraction] 100 % [facility] Work Phone: [facility] 08-07-2024 11:03-0400 Systolic blood pressure 155 mm[Hg] [facility] Work Phone: [facility] 07-10-2024 19:29-0400 Diastolic blood pressure 92 mm[Hg] [facility] Work Phone: [facility] 07-10-2024 19:29-0400 Heart rate 83 /min [facility] Work Phone: [facility] 07-10-2024 19:29-0400 Respiratory rate 18 /min [facility] Work Phone: [facility] 07-10-2024 19:29-0400 SaO2% (BldA) [Mass fraction] 99 % [facility] Work Phone: [facility] 07-10-2024 19:29-0400 Systolic blood pressure 143 mm[Hg] [facility] Work Phone: [facility] 07-10-2024 16:27-0400 Body height 175.26 cm [facility] Work Phone: [facility] 07-10-2024 16:27-0400 Body temperature 98.7 [degF] [facility] Work Phone: [facility] 07-10-2024 16:27-0400 Body weight 113.75 kg [facility] Work Phone: [facility] 07-01-2023 11:53-0400 Diastolic blood pressure 85 mm[Hg] [facility] Work Phone: [facility] 07-01-2023 11:53-0400 Heart rate 92 /min [facility] Work Phone: [facility] 07-01-2023 11:53-0400 Systolic blood pressure 149 mm[Hg] [facility] Work Phone: [facility] 07-01-2023 09:37-0400 Body height 176.53 cm [facility] Work Phone: [facility] 07-01-2023 09:37-0400 Body temperature 99.3 [degF] [facility] Work Phone: [facility] 07-01-2023 09:37-0400 Body weight 122.46 kg [facility] Work Phone: [facility] 07-01-2023 09:37-0400 Respiratory rate 24 /min [facility] Work Phone: [facility] 07-01-2023 09:37-0400 SaO2% (BldA) [Mass fraction] 99 % [facility] Work Phone: [facility] 06-19-2023 00:00-0400 Diastolic blood pressure 61 mm[Hg] [facility] Work Phone: [facility] 06-19-2023 00:00-0400 Heart rate 71 /min [facility] Work Phone: [facility] 06-19-2023 00:00-0400 Respiratory rate 20 /min [facility] Work Phone: [facility] 06-19-2023 00:00-0400 SaO2% (BldA) [Mass fraction] 100 % [facility] Work Phone: [facility] 06-19-2023 00:00-0400 Systolic blood pressure 129 mm[Hg] [facility] Work Phone: [facility] 06-18-2023 21:21-0400 Body height 175.26 cm [facility] Work Phone: [facility] 06-18-2023 21:21-0400 Body weight 117.02 kg [facility] Work Phone: [facility] 06-18-2023 21:20-0400 Body temperature 98.6 [degF] [facility] Work Phone: [facility] 06-03-2023 11:58-0400 Diastolic blood pressure 90 mm[Hg] [facility] Work Phone: [facility] 06-03-2023 11:58-0400 Heart rate 91 /min [facility] Work Phone: [facility] 06-03-2023 11:58-0400 Systolic blood pressure 145 mm[Hg] [facility] Work Phone: [facility] 05-31-2023 04:30-0400 Diastolic blood pressure 82 mm[Hg] [facility] Work Phone: [facility] 05-31-2023 04:30-0400 Heart rate 75 /min [facility] Work Phone: [facility] 05-31-2023 04:30-0400 Respiratory rate 20 /min [facility] Work Phone: [facility] 05-31-2023 04:30-0400 SaO2% (BldA) [Mass fraction] 98 % [facility] Work Phone: [facility] 05-31-2023 04:30-0400 Systolic blood pressure 150 mm[Hg] [facility] Work Phone: [facility] 05-30-2023 23:32-0400 Body height 176.53 cm [facility] Work Phone: [facility] 05-30-2023 23:32-0400 Body temperature 98.2 [degF] [facility] Work Phone: [facility] 05-30-2023 23:32-0400 Body weight 117.02 kg [facility] Work Phone: [facility] 04-18-2023 12:10-0400 Body temperature 98.2 [degF] [facility] Work Phone: [facility] 04-18-2023 12:10-0400 Diastolic blood pressure 91 mm[Hg] [facility] Work Phone: [facility] 04-18-2023 12:10-0400 Heart rate 86 /min [facility] Work Phone: [facility] 04-18-2023 12:10-0400 Respiratory rate 18 /min [facility] Work Phone: [facility] 04-18-2023 12:10-0400 SaO2% (BldA) [Mass fraction] 100 % [facility] Work Phone: [facility] 04-18-2023 12:10-0400 Systolic blood pressure 169 mm[Hg] [facility] Work Phone: [facility] 04-18-2023 12:06-0400 Body height 175.26 cm [facility] Work Phone: [facility] 04-18-2023 12:06-0400 Body weight 129.1 kg [facility] Work Phone: [facility] 01-19-2023 09:40-0500 Diastolic blood pressure 67 mm[Hg] [facility] Work Phone: [facility] 01-19-2023 09:40-0500 Heart rate 86 /min [facility] Work Phone: [facility] 01-19-2023 09:40-0500 Respiratory rate 20 /min [facility] Work Phone: [facility] 01-19-2023 09:40-0500 SaO2% (BldA) [Mass fraction] 100 % [facility] Work Phone: [facility] 01-19-2023 09:40-0500 Systolic blood pressure 145 mm[Hg] [facility] Work Phone: [facility] 01-19-2023 07:19-0500 Body height 175.26 cm [facility] Work Phone: [facility] 01-19-2023 07:19-0500 Body temperature 98 [degF] [facility] Work Phone: [facility] 01-19-2023 07:19-0500 Body weight 127.3 kg [facility] Work Phone: [facility] 01-08-2023 14:52-0500 Body height 176.53 cm [facility] Work Phone: [facility] 01-08-2023 14:52-0500 Body temperature 98.9 [degF] [facility] Work Phone: [facility] 01-08-2023 14:52-0500 Body weight 124.45 kg [facility] Work Phone: [facility] 01-08-2023 14:52-0500 Diastolic blood pressure 74 mm[Hg] [facility] Work Phone: [facility] 01-08-2023 14:52-0500 Heart rate 93 /min [facility] Work Phone: [facility] 01-08-2023 14:52-0500 Respiratory rate 20 /min [facility] Work Phone: [facility] 01-08-2023 14:52-0500 SaO2% (BldA) [Mass fraction] 98 % [facility] Work Phone: [facility] 01-08-2023 14:52-0500 Systolic blood pressure 143 mm[Hg] [facility] Work Phone: [facility] 01-04-2023 11:34-0500 Body height 175.26 cm [facility] Work Phone: [facility] 01-04-2023 11:34-0500 Body temperature 98.7 [degF] [facility] Work Phone: [facility] 01-04-2023 11:34-0500 Body weight 107.9 kg [facility] Work Phone: [facility] 01-04-2023 11:34-0500 Diastolic blood pressure 91 mm[Hg] [facility] Work Phone: [facility] 01-04-2023 11:34-0500 Heart rate 98 /min [facility] Work Phone: [facility] 01-04-2023 11:34-0500 Respiratory rate 18 /min [facility] Work Phone: [facility] 01-04-2023 11:34-0500 SaO2% (BldA) [Mass fraction] 100 % [facility] Work Phone: [facility] 01-04-2023 11:34-0500 Systolic blood pressure 165 mm[Hg] [facility] Work Phone: [facility] 11-17-2022 02:32-0500 Diastolic blood pressure 98 mm[Hg] [facility] Work Phone: [facility] 11-17-2022 02:32-0500 Heart rate 92 /min [facility] Work Phone: [facility] 11-17-2022 02:32-0500 Respiratory rate 18 /min [facility] Work Phone: [facility] 11-17-2022 02:32-0500 SaO2% (BldA) [Mass fraction] 98 % [facility] Work Phone: [facility] 11-17-2022 02:32-0500 Systolic blood pressure 168 mm[Hg] [facility] Work Phone: [facility] 11-16-2022 23:12-0500 Body height 176.53 cm [facility] Work Phone: [facility] 11-16-2022 23:12-0500 Body weight 126.35 kg [facility] Work Phone: [facility] 11-16-2022 23:11-0500 Body temperature 98.1 [degF] [facility] Work Phone: [facility] 09-17-2022 23:07-0400 Body height 175.26 cm [facility] Work Phone: [facility] 09-17-2022 23:07-0400 Body temperature 98.2 [degF] [facility] Work Phone: [facility] 09-17-2022 23:07-0400 Body weight 124.25 kg [facility] Work Phone: [facility] 09-17-2022 23:07-0400 Diastolic blood pressure 70 mm[Hg] [facility] Work Phone: [facility] 09-17-2022 23:07-0400 Heart rate 75 /min [facility] Work Phone: [facility] 09-17-2022 23:07-0400 Respiratory rate 18 /min [facility] Work Phone: [facility] 09-17-2022 23:07-0400 SaO2% (BldA) [Mass fraction] 94 % [facility] Work Phone: [facility] 09-17-2022 23:07-0400 Systolic blood pressure 153 mm[Hg] [facility] Work Phone: [facility] 08-23-2022 07:17-0400 Body height 175.26 cm DO Clyde Visci Work Phone: [facility] 08-23-2022 07:17-0400 Body temperature 98.2 [degF] DO Clyde Visci Work Phone: [facility] 08-23-2022 07:17-0400 Body weight 110.22 kg DO Clyde Visci Work Phone: [facility] 08-23-2022 07:17-0400 Diastolic blood pressure 75 mm[Hg] DO Clyde Visci Work Phone: [facility] 08-23-2022 07:17-0400 Heart rate 83 /min DO Clyde Visci Work Phone: [facility] 08-23-2022 07:17-0400 Respiratory rate 18 /min DO Clyde Visci Work Phone: [facility] 08-23-2022 07:17-0400 SaO2% (BldA) [Mass fraction] 100 % DO Clyde Visci Work Phone: [facility] 08-23-2022 07:17-0400 Systolic blood pressure 145 mm[Hg] DO Clyde Visci Work Phone: [facility] 07-13-2022 12:00-0400 Body height 175.26 cm Jase Rosenberg Other [facility] Other 07-13-2022 12:00-0400 Body mass index (BMI) [Ratio] 39.13 kg/m2 Jase Hadleyxa Other [facility] Other 07-13-2022 12:00-0400 Body weight 120.2 kg Jase Hadleyxa Other [facility] Other 07-06-2022 21:44-0400 Body height 176.53 cm DO Clyde Visci Work Phone: [facility] 07-06-2022 21:44-0400 Body weight 112.49 kg DO Clyde Visci Work Phone: [facility] 07-06-2022 21:43-0400 Body temperature 98.2 [degF] DO Clyde Visci Work Phone: [facility] 07-06-2022 21:43-0400 Diastolic blood pressure 72 mm[Hg] DO Clyde Visci Work Phone: [facility] 07-06-2022 21:43-0400 Heart rate 93 /min DO Clyde Visci Work Phone: [facility] 07-06-2022 21:43-0400 Respiratory rate 17 /min DO Clyde Visci Work Phone: [facility] 07-06-2022 21:43-0400 SaO2% (BldA) [Mass fraction] 100 % DO Clyde Visci Work Phone: [facility] 07-06-2022 21:43-0400 Systolic blood pressure 135 mm[Hg] DO Clyde Visci Work Phone: [facility] 2019 13:18-0500 BMI (Body Mass Index) 40.2 kg/m2 [facility] 2019 13:18-0500 Body Temperature 98.2 [degF] [facility] 2019 13:18-0500 Body weight 127.3 kg [facility] 2019 13:18-0500 BP Diastolic 81 mm[Hg] [facility] 2019 13:18-0500 BP Systolic 143 mm[Hg] [facility] 2019 13:18-0500 Height 177.8 cm [facility] 2019 13:18-0500 Pulse (Heart Rate) 88 /min [facility] 2019 13:18-0500 Pulse Oximetry 99 % Clyde Aguilera [facility] 2019 13:18-0500 Respiratory Rate 17 /min [facility] Encounters Encounter Date Encounter Type Care Provider Facility Start: 09-07-2024 End: 09-07-2024 Patient encounter procedure [facility] Work Phone: [facility] [place] Work Phone: Start: 09-07-2024 End: 09-07-2024 ambulatory Teo Heath Facility:[facility] Start: 08-23-2024 End: 08-23-2024 Emergency department patient visit Services [facility] Work Phone: [facility]Emer[facility] Work Phone: Start: 08-07-2024 End: 08-07-2024 Emergency department patient visit [facility] Work Phone: [facility] Work Phone: Start: 07-10-2024 End: 07-10-2024 Emergency department patient visit [facility] Work Phone: [facility]-Emergency Room Work Phone: Start: 03-12-2024 End: 03-13-2024 ambulatory Alfie Dixon MD Facility:[facility] Start: 03-08-2024 End: 03-08-2024 Patient encounter procedure [facility] Work Phone: [facility]Ultrasound Cntr for Breast Car Start: 03-08-2024 End: 03-08-2024 ambulatory [facility] Work Phone: [facility] Work Phone: Start: 02-27-2024 End: 02-28-2024 ambulatory Alfie Dixon MD Facility:[facility] Start: 02-06-2024 End: 02-07-2024 ambulatory Alfie Dixon MD Facility:[facility] Start: 12-02-2023 End: 12-02-2023 Patient encounter procedure [facility] Work Phone: [facility]Center for Breast Care Work Phone: Start: 12-02-2023 End: 12-02-2023 ambulatory [facility] Work Phone: [facility] Work Phone: Start: 10-07-2023 End: 10-07-2023 Patient encounter procedure [facility] Work Phone: [facility]Lab [facility] [place] Work Phone: Start: 10-07-2023 End: 10-07-2023 ambulatory [facility] Work Phone: [facility] Work Phone: Start: 08-09-2023 End: 08-09-2023 ambulatory [facility] Work Phone: [facility] Work Phone: Start: 08-09-2023 End: 08-09-2023 Patient encounter procedure [facility] Work Phone: [facility]-Electrodiagnostics Work Phone: Start: 07-13-2023 End: 07-13-2023 ambulatory [facility] Work Phone: [facility] Work Phone: Start: 07-13-2023 End: 07-13-2023 Patient encounter procedure [facility] Work Phone: [facility] [place] Work Phone: Start: 07-01-2023 End: 07-01-2023 Emergency department patient visit [facility] Work Phone: [facility]Emergency [facility] Work Phone: Start: 06-18-2023 End: 06-19-2023 Emergency department patient visit [facility] Work Phone: [facility] Work Phone: Start: 06-14-2023 End: 06-14-2023 ambulatory Jase Rosenberg Other [facility] Other Start: 06-14-2023 Office outpatient visit 15 minutes Jase Shakira [facility] [place] [facility] Start: 06-14-2023 End: 06-14-2023 Patient encounter procedure [facility] Work Phone: [facility] [place] [facility] Start: 06-03-[address] Marcos Gregory Facility:[id number] Start: 05-30-2023 End: 05-31-2023 [facility] department [facility] Start: 11-16-2022 End: 11-17-2022 Emergency department patient visit [facility] Work Phone: [facility]-Emergency Room Start: 11-04-2022 End: 11-05-[address] UZAIR LIGHT . Facility:[facility]1 Start: 10-12-2022 End: 10-12-2022 Patient encounter procedure Services [facility] Work Phone: [facility] [place] [facility] Start: 09-17-2022 End: 09-18-2022 Emergency department patient visit Services [facility] Work Phone: [facility]-Emergency Room Start: 08-23-2022 End: 08-23-2022 Emergency department patient visit DO Clyde Visci Work Phone: [facility]-Emergency Room Start: 08-18-2022 End: 08-18-2022 Patient encounter procedure DO Clyde Visci Work Phone: [facility]-MRI [address] Start: 07-13-2022 End: 07-13-2022 ambulatory Jase Rosenberg Other [facility] Other Start: 07-13-2022 Office outpatient ne w 45 minutes Jase Rosenberg [facility] [place] [facility] Start: 07-08-2022 End: 07-09-[address] UZAIR LIGHT . Facility:[facility] Start: 07-06-2022 End: 07-06-2022 Emergency department patient visit DO Clyde Visci Work Phone: [facility]-Emergency Room Start: 04-15-2022 End: 04-16-[address] UZAIR LIGHT . Facility:[facility] Start: 03-30-2022 End: 03-30-[address] UZAIR LIGHT . Facility:[facility] Start: 01-08-2020 End: 01-08-2020 Patient encounter procedure Clyde Visci -Ultrasound [facility] [place] Start: 2019 End: 2019 Emergency department patient visit Clyde Visci -Emergency Room Start: 09-17-2019 End: 09-17-2019 Emergency department patient visit Clyde Visci -Emergency Room Start: 12-26-2018 End: 12-26-2018 Patient encounter procedure Clyde Visci -XRay [address] Start: 02-02-2005 Evaluation and management of inpatient Clyde Aguilera -3 [facility] Procedures Date Procedure Procedure Detail Performing Clinician Start: 08-07-2024 X-ray of right foot Ser katie [facility] Phone: Start: 07-10-2024 Computed tomography of abdomen and pelvis with contrast Services [facility] Phone: Start: 03-08-2024 Ultrasonography of b ilateral breasts Services [facility] Phone: Start: 12-02-2023 Screening mammograph y of bilateral breasts Services [facility] Phone: Start: 06-18-2023 CT of head without contrast Services [facility] Phone: Start: 06-18-2023 Plain X-ray of left shoulder Services [facility] Phone: Start: 06-14-2023 Plain X-ray of left wrist Services [facility] Phone: Start: 06-03-2023 Radionuclide myocard ial perfusion stress study Services [facility] Phone: Start: 05-31-2023 Plain chest X-ray Servi rachel [facility] Phone: Start: 04-18-2023 Plain X-ray of left wrist Services [facility] Phone: Start: 01-19-2023 Streptococcus pyogen es antigen assay Services [facility] Phone: Start: 01-08-2023 SARS-CoV-2, Influenz a & RSV (PCR) Services [facility] Phone: Start: 01-04-2023 Streptococcus pyogen es antigen assay Services [facility] Phone: Start: 11-17-2022 SARS-CoV-2, Influenz a & RSV (PCR) Services [facility] Phone: Start: 10-12-2022 X-ray of left ankle Ser katie [facility] Phone: Start: 08-18-2022 MRI of right knee DO Ri gael Postcron Work Phone: Start: 07-06-2022 Plain X-ray of left wrist DO Clyde Aguilera Work Phone: Start: 07-06-2022 X-ray of right knee DO Clyde Aguilera Work Phone: Start: 01-08-2020 Duplex scan of lower limb veins Clyde Aguilera Start: 2019 X-ray of left ankle Giovanni hard Visci H/O: section S/P DO Estrella mayo Visci Work Phone: SARS Antigen (LFIA) DO Karen rd Visci Work Phone: SARS-CoV-2, Influenz a & RSV (PCR) Services [facility] Work Phone: Plan of Treatment Date Care Activity Detail Author Start: 07-10-2024 [facility] Start: 06-18-2023 CT of head without contrast CT head/ brain wo con [facility] Start: 06-18-2023 CT Unspecified body region WO contrast [facility] Start: 06-18-2023 Plain X-ray of left shoulder XR shoulder LT min 2V* [facility] Start: 06-18-2023 XR Shoulder - left Views [facility] Start: 05-31-2023 [facility] Start: 05-31-2023 Plain chest X-ray XR chest 2V* [facility] Start: 05-31-2023 XR Chest 2 Views [facility] Cardiovascular stres s testing [facility] Patient Education [facility] Patient referral [facility] Immunizations Immunization Date Immunization Notes Care Provider Fa cility 12-10-2018 tetanus toxoid, redu nissa diphtheria toxoid, and acellular pertussis vaccine, adsorbed Clyde Aguilera [facility] Payers Date Payer Category Payer Medicare 2023 Self-pay [id number] 2022 Medicaid [id number] 1978 Unknown [id number] 2.16.840.1.110806.3.579.2.5 93 1978 Unknown [id number] 2.16.840.1.307637.3.579.2.5 93 1978 Unknown [id number] 2.16.840.1.854337.3.579.2.5 93 1978 Unknown [id number] 2.16.840.1.863050.3.579.2.5 93 1978 Unknown [id number] 2.16.840.1.723066.3.579.2.5 93 1978 Unknown [id number] 2.16.840.1.695575.3.579.2.5 93 1978 Unknown [id number] 2.16.840.1.589737.3.579.2.3 56 1978 Unknown [id number] 2.16.840.1.328855.3.579.2.1 96 1978 Unknown [id number] 2.16.840.1.917547.3.579.2.1 96 1978 Unknown [id number] 2.16.840.1.661478.3.579.2.1 1959 Medicare [id number] 1959 Unknown [id number] 2.16.840.1.593718.19 Private Health Insurance [id number] Unknown Self Pay [id number] Unknown Regular Auto/Liability [id number] Unknown [id number] 2.16.840.1.726573.3.579.2.5 31 Unknown [id number] 2.16.840.1.699644.3.579.2.5 31 Unknown [id number] 2.16.840.1.727063.3.579.2.5 31 Unknown [id number] 2.16.840.1.326230.3.579.2.5 31 Unknown [id number] 2.16.840.1.295336.3.579.2.5 31 Unknown [id number] 2.16.840.1.896417.3.579.2.5 31 Unknown [id number] 2.16.840.1.247501.3.579.2.5 31 Social History Date Type Detail Facility Start: 2019 End: 08-07-2024 Tobacco smoking status WIIS Ex-smoker (finding) [facility] Start: 1980 Sex Assigned At Female [facility] Sex Assigned At Sex Assigned At [facility] Other Start: 07-06-2022 End: 08-23-2024 Tobacco smoking status [facility] Never smoked tobacco (finding) [facility] NEGATED: Highlighted row [facility] Goals Date Patient Goal Desired Activity /State Clinical Notes 04-15-2022 to 07-10-2024 Note Date & Type Note Facility 07-10-2024 Hospital Discharg e instructions Additional Instructions Take Phenergan as prescribed for nausea. Take Imodium as prescribed for loose stool. Increase your intake of fluids and rest. You can take Motrin or Tylenol as needed for your neck pain. follow-up with PCP for any persistent symptoms 5 to 7 days. [facility] Work Phone: 06-14-2023 Evaluation note Encounter Date Diagnosis Assessment [...] We also discussed a carpal tunnel release. [facility] Other 03-16-2023 NoteCONSULTATION CONSULTATION DATE: 02/10/2023 HISTORY: [...] months' time, unless otherwise indicated.[id number] Hospital Discharge instructions Additional Instructions Take the [...] other [facility] Work Phone: [phone] 143-443312-08-2022 NoteCONSULTATION CONSULTATION DATE: 11/04/2022 HISTORY OF PRESENT [...] 20-30 a week. Patient does work at [employer] and is on her foot a lot. [...] with the plan of care.[facility] [id number] Evaluation note* Encounter Date Diagnosis Assessment Notes [...] tolerated the injection well without adverse reaction. [facility] Other 08-11-2022 NoteCONSULTATION CONSULTATION DATE: 07/08/2022 HISTORY [...] pending appointment with Dr. Rosenberg, Orthopedic in [place] next week. 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 She is on her feet a lot and has recently experienced left lower extremity swelling. Overall, the patient felt that's some pressure has been released with this recent sympathetic block. Current medications include gabapentin 200 mg a.m., 200 mg noon and 400 mg at dusk, Percocet 5/325 t.i.d., Vistaril and a vitamin complex. The patient does continue to go to physical therapy at [facility] in [place]. Activities that aggravate her pain are standing, [...] of care and would like to proceed. [facility] Signed and Approved by: NICO GARCIAS . 04/19/2022 15:06:00[facility] noteNo assessment information availableSum[facility] Work Phone: History general Narrative - Reported* Type Description Date Medical History Rheumatoid arthritis Medical History carpal tunnel Medical History diabetes Medical History HTN Surgical History Bilateral feet surgery-heel spu rs Surgical History x 2 Surgical History gall bladder Surgical History tendon repair, nerve repair lef t lower extremity 2020 Surgical History left carpal tunnel release 2020 Hospitalization History see surgeries [facility] Other Hospital Discharge instructions Additional Instructions Tylenol every 4 hours as needed for pain Return if symptoms are worse Watch for signs of infection Follow-up with your nailbed salon and get the false nail removed tomorrow [facility] Work Phone: Hospital Discharge instructions Additional Instructions Follow-up with your primary care doctor Return to ED if develop worsening symptoms or [facility] Work Phone: Hospital Discharge instructions Additional Instructions I am not able to prescribe you any pain medication as you have a current prescription for Percocet.[facility] Work Phone: Hospital Discharge instructions Additional Instructions Return to emergency room for shortness of breath, if you feel you have throat swelling, increased pain or other concerns [facility] Work Phone: Advance Directives Advance Directive Response [...] ^ i10 Screening Chief Complaint ^ R92.8 Chief Complaint ^ neck/abd pain Chief Complaint ^ neck/abd pain rt foot great toe inj, fell 9-1024 Chief Complaint ^ neck/abd pain rt foot great toe inj, fell 9-10-24 bee sting Chief Complaint ^ neck/abd pain rt foot great toe inj, fell -09-20 bee sting 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 I10 Assessments No Assessments Information Available Family History [...] Unknown Unknown Not Specified Heart disease Unknown Relationship Condition Age at Onset Recorded Date/T mendez mother Myocardial infarction Unknown Diabetes mellitus Unknown father Cerebrovascular accident (CVA) Unknown Hypertension Unknown brother Diabetes mellitus Unknown Renal failure Unknown father Diabetes mellitus Unknown Heart disease Unknown History of stroke Unknown Unknown mother Heart disease Unknown Summary Purpose Additional Source Comments REASON FOR VISIT (unrecogniz ed section and content) [facility] LT WRIST CYST RT KNE E PAIN WXLeft Wrist Pain, Right Carpal Tunnel SyndromeLeft Wrist Pain, Right Carpal Tunnel Syndrome Care Teams (unrecognized sec tion and content) Team Status: Active Member Role Status [facility] Primary Care Provider Active Team Status: Active Member Role Status Breana Aguilera DO Attending Provider Active Team Status: Inactive Member Role Status [facility] Primary Care Provider Active Agustin Sandra APRN Emergency Provider Active Team Status: Inactive Member Role Status [facility] Primary Care Provider Active Lars Guerra DO Emergency Provider Active Team Status: Inactive Member Role Status [facility] Primary Care Provider Active Marissa Elliott APRN Emergency Provider Active Team Status: Inactive Member Role Status [facility] Primary Care Provider Active Praveen Pearl DO Emergency Provider Active Team Status: Inactive Member Role Status [facility] Primary Care Provider Active Jase Rosenberg MD Attending Provider Active Team Status: Inactive Member Role Status [facility] Primary Care Provider Active Ayan Andrade MD Emergency Provider Active Team Status: Inactive Member Role Status [facility] Primary Care Provider Active Jase Breaux Jr, MD Emergency Provider Active Team Status: Inactive Member Role Status [facility] Primary Care Provider Active Abner Garcia DPM MS Attending Provider Active Team Status: Inactive Member Role Status [facility] Primary Care Provider Active VIRGEN Myles Emergency Provider Active Team Status: Inactive Member Role Status [facility] Primary Care Provider Active Arnoldo Pérez DO Emergency Provider Active Team Status: Inactive Member Role Status [facility] Primary Care Provider Active Jase Breaux Jr, MD Emergency Provider Active Princess Guevara MD RES Active Team Status: Inactive Member Role Status [facility] Primary Care Provider Active Teo Heath , Attending Provider Active Marquise Rafaelroxy DO RES Other Provider Active Team Status: [...] Services [facility] Primary Care Provider Active Start: March 08, 2024 End: March 08, 2024 John Luu , RES Attending Provider Active Start: March 08, 2024 End: March 08, 2024 Team Status: Inactive Member Role Status [facility] Primary Care Provider Active Start: July 10, 2024 End: July 10, 2024 Jovan Hutson DO Emergency Provider Active Start: July 10, 2024 End: July 10, 2024 Team Status: Inactive Member Role Status [facility] Primary Care Provider Active Start: August 07, 2024 End: August 07, 2024 Agustin Sandra APRN Emergency Provider Active Start: August 07, 2024 End: August 07, 2024 Team Status: Inactive Member Role Status [facility] Primary Care Provider Active Start: August 23, 2024 End: August 23, 2024 Ning Saravia APRN Emergency Provider Active Start: August 23, 2024 End: August 23, 2024 Team Status: Inactive Member Role Status [facility] Primary Care Provider Active Start: September 07, 2024 End: September 07, 2024 Teo Heath DO Attending Provider Active Start : September 07, 2024 End: September 07, 2024 John Luu DO RES Referring Provider Active Start: September 07, 2024 End: September 07, 2024 Goals (unrecognized section and content) Goals may be documented in a n alternate section INFORMATION SOURCE (unrecogn ized section and content) DATE CREATED AUTHOR 02/19/2023 Galina heredia DATE CREATED AUTHOR AUTHOR'S ORGANIZ ATION 06/04/2023 [facility] DATE CREATED AUTHOR AUTHOR'S ORGANIZ ATION 03/21/2024 [facility] DATE CREATED AUTHOR AUTHOR'S ORGANHAYDEN ATION 09/10/2024 [facility] FOR RECORDS PERTAINING TO PATIENTS [...] BE BASED ON THE PRIMARY CLINICAL RECORDS. [employer] [facility]. provides no warranty or guarantee of the accuracy or completeness of information in this document.
== END 2024-10-04 11:00 | disposition home or self-care (01) ==
LOC: PST 11:00
PROVIDERS: Visit Provider Anesthesiology
DX: Z01.818 Encounter for other preprocedural examination (principal); G90.522 Complex regional pain syndrome I of left lower limb; E11.9 Type 2 diabetes mellitus without complications; D64.9 Anemia, unspecified

== ENCOUNTER 2024-10-08 10:04 | Day surgery (SDC) | payer MEDICARE, MEDICAID, SELFPAY ==
[2024-10-04 11:50] VITALS: BP 137/84; PULSE 84; TEMP 36.4; O2SAT 100; BMI 37.1
--- OUTSIDE RECORDS SUMMARY | 2024-10-08 10:23 | XMS_ITS | CCD ---
Author Organization [facility] Care Team Providers Care Industrial Management Teacher Name Role Phone Clyde Aguilera Attending Provider Unavailable [facility] Primary Care Provider Un available Shayy, Lars Attending Provider Unavailable Jase Rosenberg Unavailable DO Clyde Aguilera Attending Provider [facility] Primary Care Provider [phone] LUIS Elliott Emergency Provider MD Jase Rosenberg Attending Provider DO Praveen Pearl Emergency Provider MD Ayan Andrade Emergency Provider DO Clyde Aguilera Attending Provider [facility] Primary Care Provider DO Praveen Pealr Emergency Provider MD Ayan Andrade Emergency Provider DIONNE Garcia Attending Provider [phone] MD Jase Breaux Jr Emergency Provider [facility] Primary Care Provider Kenneth [facility] Caitlyn Tuttle Emergency Provider [facility] Primary Care Provider [phone] DO Arnoldo Pérez Emergency Provider DR UZAIR CARTER Admitting Unavailable TERRENCE .DR UZAIR Attending Unavailable NICO GOMEZ Consulting Unavailable [facility] Primary Care Unavaila DR ARIADNA Hardin Consulting Unavailable LAKSHMIPATHY ., NARENDRANATH Admitting Katerine vailable LAKSHMIPATHJessica ., NARENDRANATH Attending Katerine vailable [facility] Primary Care Unavaila ble LIGHT ., DR UZAIR Matute Admitting Unavailable LIGHT ., DR UZAIR Matute Attending Unavailable MISC, DR OJEDA Primary Care Unavailable GARCIAS ., NICO Consulting Unavailable LIGHT ., DR UZAIR Matute Admitting Unavailable LIGTH ., DR UZAIR Matute Attending Unavailable MISC, [...] Consulting Unavailable CARMEN CARPIO Consulting Unavailable [facility] Primary Care Provider LUIS Sandra Emergency Provider DO Lars Guerra Emergency Provider [phone] Marcos Gregory Attending Unava MD Jase Dudley Attending Provider MD Jase Breaux Jr Emergency Provider DO Teo Heath Attending Provider ParentDO Marquise ramsey Other Provider [facility] Primary Care Provider LUIS Sandra Emergency Provider [phone] DO John Luu Referring Provider [phone] [facility] Primary Care Provider [phone] DO Teo eHath Attending Provider Parentroxy, DO [place] Other Provider DO John Luu Referring Provider DO John Luu Referring Provider [facility] Primary Care Provider DO Teo Heath Attending Provider Self, Referral Attending Provider Unavailable [facility] Primary Care Provider [phone] DO John Luu Attending Provider [phone] Zack SKINNER, Alfie Ch Attending Unavailable Zack SKINNER, Alfie Ch Attending Unavailable Zack SKINNER, Alfie Ch Attending Unavailable [facility] Primary Care Provider DO Jovan Hutson Emergency Provider LUIS Sin Emergency Provider LUIS Saravia Emergency Provider [phone] Ning Saravia Admitting Unavailable Ning Saravia Attending [...] Referral Admitting Unavailable Self, Referral Attending Unavailable [facility] Primary Care Unavaila John Hernandez Admitting Unavailable John Luu Attending Unavailable [facility] Primary Care Unavaila ble Agustin Sandra Admitting Unavailable Agustin Sandra Attending Unavailable [facility] Primary Care Unavaila DO Teo Pal Attending Provider DO John Luu Referring Provider [phone] Unavailable Unavailable Unavailable Allergies Allergy Classification Reported Allergen(s) Allergy Type Date of Onset Reaction(s) Facility (20 sources) cyclobenzaprine ; Translations: [cyclobenzaprin e] Drug Allergy 2 Swelling of Lip/Tongue/Thro at [facility] (20 sources) Naproxen; Translations: [naproxen] Drug Allergy 2 Hives, Unknown [facility] (20 sources) Ondansetron; Translations: [ondansetron] Drug Allergy 2 Swelling of Lip/Tongue/Thro at [facility] (20 sources) Scallop - dietary; Translations: [scallops] Allergy to substance 2 hives [facility] (5 sources) cyclobenzaprine ; Translations: [Flexeril] Drug Allergy 7 Unknown [facility] (5 sources) Ondansetron; Translations: [Zofran] Drug Allergy 7 Unknown [facility] (2 sources) Naproxen Drug Allergy 7 [facility] (2 sources) Misc-Food; Translations: [Misc-Food] Food allergy (disorder) 7 [facility] Medications Current Medications Medication Drug [...] by mouth three times daily Hydrocodone-Aceta minophen (Edon) 5-325 mg tablet Discontinued 1 TAB PO [...] mg/ml oral solution (14 sources) Phenothiazine, Uncompetitive H-sbqicc-U-aspartate Receptor Antagonist, Sigma-1 Agonist Start: 01-08-2023 End: [...] 1:00am April 18, 2023 12:08pm Prenat 115-Iron Xbh-Uutbn-Bpn ( 19 (With Docusate)) 29 mg iron- 1 mg-25 mg tablet (18 sources) Start: 04-21-2018 End: 04-22-2019 take 1 tablet by mouth once daily Prenat 115-Iron Fka-Cdqfd-Ago ( 19 (With Docusate)) 29 mg iron- 1 mg-25 mg tablet Discontinued 1 TAB PO Daily April 20, 2018 11:00pm April 22, 2019 9:17am Start: 04-21-2018 End: 04-22-2019 take 1 tablet by mouth once daily Prenat 115-Iron Atk-Bevyb-Bvw ( 19 (With Docusate)) 29 mg iron- [...] Cyanocobalamin (Vitamin B-12 ) Discontinued 0 .ROUTE .[facility] December 26, 2020 1:00am April 18, 2023 [...] 09-07-2024 Glucose [Mass/Vol] 123 mg/dL Normal [facility] Comment on above: Order Comment: Reaso n for Exam Obesity due to excess calories with serious comorbidity, uns Result Comment: PERF ORMED BY: [place] [address] PATHOLOGIST [employer] MARTY SALGADO M.D. Performed By: #### L IPID, CBC, TSH3 wRFLX, CMP, URMACRERAT, A1C WT eA #### [facility] [address] [place] [address] A1C with Estimated Average G luOrdered By: John Luu on 09-07-2024 HbA1c (Bld) [Mass fraction] 5.9 % High 4.3-5.6 [facility] Comment on above: Order Comment: Reaso n for Exam Obesity due to excess calories with serious comorbidity, uns Result Comment: Incr eased risk for diabetes: 5.7 - 6.4 diabetes: >6.4 glycemic control for adults with diabetes: <7.0 Performed By: #### L IPID, CBC, TSH3 wRFLX, CMP, URMACRERAT, A1C WTH eA #### [facility] [address] [place] [address] [place] Increased risk for d iabetes: 5.7 - 6.4diabetes: >6.4glycemic control for adults with diabetes: <7.0 Albumin [Mass/volume] in Ser um or Plasma by Bromocresol green (BCG) dye binding methoOrdered By: John Luu on 09-07-2024 Albumin BCG dye [Mass/Vol] 3.8 g/dL 3.5-5.7 [facility] Cholesterol in LDL Calc [Mas s/Vol]Ordered By: John Luu on 09-07-2024 Cholesterol in LDL [Mass/Vol] 113 mg/dL High 0-100 [facility] Comment on above: LDL ATP III CLASSIFI CATIONLDL less than 100 mg/dL OptimalLDL 100-129 mg/dL Near or above optimalLDL 130-159 mg/dL Borderline highLDL 160-189 mg/dL HighLDL greater than 189 mg/dL Very high Cholesterol in VLDL Calc [Ma ss/Vol]Ordered By: John Luu on 09-07-2024 Cholesterol in VLDL [Mass/Vol] 15 mg/dL [facility] Complete Blood Count Auto Di ffOrdered By: John Luu on 09-07-2024 Basophils (Bld) [#/Vol] 0.0 10*3/uL Normal 0.0-0.2 [facility] Comment on above: Order Comment: Reaso n for Exam Obesity due to excess calories with serious comorbidity, uns Result Comment: PERF ORMED BY: [place] [address] PATHOLOGIST [employer] MARTY SALGADO M.D. Performed By: #### L IPID, CBC, TSH3 wRFLX, CMP, URMACRERAT, A1C WT eA #### [facility] [address] [place] [address] [place] Basophils/100 WBC (Bld) 0.6 % Normal . [facility] Comment on above: Order Comment: Reaso n for Exam Obesity due to excess calories with serious comorbidity, uns Performed By: #### L IPID, CBC, TSH3 wRFLX, CMP, URMACRERAT, A1C WT eA #### [facility] [address] [place] [address] [place] Eosinophils (Bld) [#/Vol] 0.3 10*3/uL Normal 0.0-0.45 [facility] Comment on above: Order Comment: Reaso n for Exam Obesity due to excess calories with serious comorbidity, uns Performed By: #### L IPID, CBC, TSH3 wRFLX, CMP, URMACRERAT, A1C WTH eA #### [facility] [address] [place] [address] [place] Eosinophils/100 WBC (Bld) 3.6 % Normal . [facility] Comment on above: Order Comment: Reaso n for Exam Obesity due to excess calories with serious comorbidity, uns Performed By: #### L IPID, CBC, TSH3 wRFLX, CMP, URMACRERAT, A1C WTH eA #### [address] Erythrocyte distribution width (RBC) [Ratio] 15.0 % Normal 11.9-15.3 [facility] Comment on above: Order Comment: Reaso n for Exam Obesity due to excess calories with serious comorbidity, uns Performed By: #### L IPID, CBC, TSH3 wRFLX, CMP, URMACRERAT, A1C WTH eA #### [address] Hematocrit (Bld) [Volume fraction] 38.5 % Normal 34.0-46.4 [facility] Comment on above: Order Comment: Reaso n for Exam Obesity due to excess calories with serious comorbidity, uns Performed By: #### L IPID, CBC, TSH3 wRFLX, CMP, URMACRERAT, A1C WTH eA #### [place] [address] [place] Hemoglobin (Bld) [Mass/Vol] 12.5 g/dL Normal 11.8-15.4 [facility] Comment on above: Order Comment: Reaso n for Exam Obesity due to excess calories with serious comorbidity, uns Performed By: #### L IPID, CBC, TSH3 wRFLX, CMP, URMACRERAT, A1C WTH eA #### [place] [address] [place] Lymphocytes (Bld) [#/Vol] 2.7 10*3/uL Normal 1.00-4.8 [facility] Comment on above: Order Comment: Reaso n for Exam Obesity due to excess calories with serious comorbidity, uns Performed By: #### L IPID, CBC, TSH3 wRFLX, CMP, URMACRERAT, A1C WTH eA #### [facility] [address] [place] [address] [place] Lymphocytes/100 WBC (Bld) 35.0 % Normal . [facility] Comment on above: Order Comment: Reaso n for Exam Obesity due to excess calories with serious comorbidity, uns Performed By: #### L IPID, CBC, TSH3 wRFLX, CMP, URMACRERAT, A1C WTH eA #### [facility] [address] [place] [address] [place] MCH (RBC) [Entitic mass] 24.5 pg Low 24.7-34.3 [facility] Comment on above: Order Comment: Reaso n for Exam Obesity due to excess calories with serious comorbidity, uns Performed By: #### L IPID, CBC, TSH3 wRFLX, CMP, URMACRERAT, A1C WTH eA #### [place] [address] [place] MCV (RBC) [Entitic vol] 75.7 fL Low 80-100 [facility] Comment on above: Order Comment: Reaso n for Exam Obesity due to excess calories with serious comorbidity, uns Performed By: #### L IPID, CBC, TSH3 wRFLX, CMP, URMACRERAT, A1C WTH eA #### [facility] [address] [place] [address] [place] Monocytes (Bld) [#/Vol] 0.4 10*3/uL Normal 0.0-0.8 [facility] Comment on above: Order Comment: Reaso n for Exam Obesity due to excess calories with serious comorbidity, uns Performed By: #### L IPID, CBC, TSH3 wRFLX, CMP, URMACRERAT, A1C WTH eA #### [facility] [address] [place] [address] [place] Monocytes/100 WBC (Bld) 4.6 % Normal . [facility] Comment on above: Order Comment: Reaso n for Exam Obesity due to excess calories with serious comorbidity, uns Performed By: #### L IPID, CBC, TSH3 wRFLX, CMP, URMACRERAT, A1C WTH eA #### [facility] [address] [place] [address] [place] Neutrophils (Bld) [#/Vol] 4.3 10*3/uL Normal 1.8-7.7 [facility] Comment on above: Order Comment: Reaso n for Exam Obesity due to excess calories with serious comorbidity, uns Performed By: #### L IPID, CBC, TSH3 wRFLX, CMP, URMACRERAT, A1C WTH eA #### [facility] [address] [place] [id number] [place] Neutrophils/100 WBC (Bld) 56.2 % Normal . [facility] Comment on above: Order Comment: Reaso n for Exam Obesity due to excess calories with serious comorbidity, uns Performed By: #### L IPID, CBC, TSH3 wRFLX, CMP, URMACRERAT, A1C WTH eA #### [facility] [address] [place] [id number] [place] Platelet mean volume (Bld) [Entitic vol] 7.4 fL Normal 6.3-10.7 [facility] Comment on above: Order Comment: Reaso n for Exam Obesity due to excess calories with serious comorbidity, uns Performed By: #### L IPID, CBC, TSH3 wRFLX, CMP, URMACRERAT, A1C WTH eA #### [facility] [address] [place] [address] [place] Platelets (Bld) [#/Vol] 324 10*3/uL Normal 150-450 [facility] Comment on above: Order Comment: Reaso n for Exam Obesity due to excess calories with serious comorbidity, uns Performed By: #### L IPID, CBC, TSH3 wRFLX, CMP, URMACRERAT, A1C WTH eA #### [facility] [address] [place] [address] [place] RBC (Bld) [#/Vol] 5.08 10*6/uL High 3.60-5.00 [facility] Comment on above: Order Comment: Reaso n for Exam Obesity due to excess calories with serious comorbidity, uns Performed By: #### L IPID, CBC, TSH3 wRFLX, CMP, URMACRERAT, A1C WTH eA #### [facility] [address] WBC (Bld) [#/Vol] 7.7 10*3/uL Normal 3.8-11.[address] [facility] Comment on above: Order Comment: Reaso n for Exam Obesity due to excess calories with serious comorbidity, uns Performed By: #### L IPID, CBC, TSH3 wRFLX, CMP, URMACRERAT, A1C WTH eA #### [facility] [address] Complete Blood Count Auto Di ffon 09-07-2024 Mean Corpuscular HGB Conc 32.4 g/dL Normal 32.0-35.0 [facility] Comment on above: Order Comment: Reaso n for Exam Obesity due to excess calories with serious comorbidity, uns Performed By: #### L IPID, CBC, TSH3 wRFLX, CMP, URMACRERAT, A1C WTH eA #### [facility] [address] [place] [address] NRBC% 0.1 /100{WBC} Normal 0-0.5 [facility] Comment on above: Order Comment: Reaso n for Exam Obesity due to excess calories with serious comorbidity, uns Performed By: #### L IPID, CBC, TSH3 wRFLX, CMP, URMACRERAT, A1C WTH eA #### [facility] [address] Comprehensive Metabolic Pane susan 09-07-2024 Albumin [Mass/Vol] 3.8 g/dL Normal 3.5-5.7 [facility] Comment on above: Order Comment: Reaso n for Exam Obesity due to excess calories with serious comorbidity, uns Performed By: #### L IPID, CBC, TSH3 wRFLX, CMP, URMACRERAT, A1C WTH eA #### [facility] [address] GFR/1.73 sq M.predicted MDRD (S/P/Bld) [Vol rate/Area] mL/min/{1.73_m2} Normal [facility] Comment on above: Order Comment: Reaso n for Exam Obesity due to excess calories with serious comorbidity, uns Performed By: #### L IPID, CBC, TSH3 wRFLX, CMP, URMACRERAT, A1C WTH eA #### [facility] [address] [place] [address] Comprehensive Metabolic Pane lOrdered By: John Luu on 09-07-2024 Albumin/Globulin [Mass ratio] 1.3 {ratio} Normal [facility] Comment on above: Order Comment: Reaso n for Exam Obesity due to excess calories with serious comorbidity, uns Performed By: #### L IPID, CBC, TSH3 wRFLX, CMP, URMACRERAT, A1C WTH eA #### [address] ALP [Catalytic activity/Vol] 102 U/L Normal 34-104 [facility] Comment on above: Order Comment: Reaso n for Exam Obesity due to excess calories with serious comorbidity, uns Performed By: #### L IPID, CBC, TSH3 wRFLX, CMP, URMACRERAT, A1C WTH eA #### [address] ALT [Catalytic activity/Vol] 17 U/L Normal 7-52 [facility] Comment on above: Order Comment: Reaso n for Exam Obesity due to excess calories with serious comorbidity, uns Performed By: #### L IPID, CBC, TSH3 wRFLX, CMP, URMACRERAT, A1C WTH eA #### [facility] [address] [place] [address] Anion gap [Moles/Vol] 10.2 mmol/L Normal 6.0-15.0 [facility] Comment on above: Order Comment: Reaso n for Exam Obesity due to excess calories with serious comorbidity, uns Performed By: #### L IPID, CBC, TSH3 wRFLX, CMP, URMACRERAT, A1C WTH eA #### [facility] [address] [place] [id number] [place] AST [Catalytic activity/Vol] 13 U/L Normal 13-39 [facility] Comment on above: Order Comment: Reaso n for Exam Obesity due to excess calories with serious comorbidity, uns Performed By: #### L IPID, CBC, TSH3 wRFLX, CMP, URMACRERAT, A1C WTH eA #### [facility] [address] [place] [id number] [place] Bilirubin [Mass/Vol] 0.4 mg/dL Normal 0.3-1.0 [facility] Comment on above: Order Comment: Reaso n for Exam Obesity due to excess calories with serious comorbidity, uns Performed By: #### L IPID, CBC, TSH3 wRFLX, CMP, URMACRERAT, A1C WTH eA #### [facility] [address] [place] [address] [place] Calcium [Mass/Vol] 8.8 mg/dL Normal 8.6-10.[address] [facility] Comment on above: Order Comment: Reaso n for Exam Obesity due to excess calories with serious comorbidity, uns Performed By: #### L IPID, CBC, TSH3 wRFLX, CMP, URMACRERAT, A1C WTH eA #### [facility] [address] [place] [id number] [place] Chloride [Moles/Vol] 107 mmol/L Normal 98-107 [facility] Comment on above: Order Comment: Reaso n for Exam Obesity due to excess calories with serious comorbidity, uns Performed By: #### L IPID, CBC, TSH3 wRFLX, CMP, URMACRERAT, A1C WTH eA #### [facility] [address] [place] [id number] [place] CO2 [Moles/Vol] 28.8 mmol/L Normal 21.0-31.0 [facility] Comment on above: Order Comment: Reaso n for Exam Obesity due to excess calories with serious comorbidity, uns Performed By: #### L IPID, CBC, TSH3 wRFLX, CMP, URMACRERAT, A1C WTH eA #### [facility] [address] Creatinine [Mass/Vol] 0.77 mg/dL Normal 0.60-1.20 [facility] Comment on above: Order Comment: Reaso n for Exam Obesity due to excess calories with serious comorbidity, uns Performed By: #### L IPID, CBC, TSH3 wRFLX, CMP, URMACRERAT, A1C WTH eA #### [facility] [address] Globulin (S) [Mass/Vol] 2.9 g/dL Normal [facility] Comment on above: Order Comment: Reaso n for Exam Obesity due to excess calories with serious comorbidity, uns Performed By: #### L IPID, CBC, TSH3 wRFLX, CMP, URMACRERAT, A1C WTH eA #### [address] Glucose [Mass/Vol] 89 mg/dL Normal 70-[address] [facility] Comment on above: Order Comment: Reaso n for Exam Obesity due to excess calories with serious comorbidity, uns Result Comment: [place] om Glucose Reference Range is dependent on time and content of last meal. Glucose of more than 200 mg/dL in a nonstressed, ambulatory subject supports the diagnosis of Diabetes Mellitus. ADA recommended reference range Performed By: #### L IPID, CBC, TSH3 wRFLX, CMP, URMACRERAT, A1C WTH eA #### [facility] [address] [place] [address] ADA recommended refe rence rangeRandom Glucose Reference Range is dependent on time and content of last meal. Glucose of more than 200 mg/dL in a nonstressed, ambulatory subject supports the diagnosis of Diabetes Mellitus. Potassium [Moles/Vol] 4.0 mmol/L Normal 3.5-5.1 [facility] Comment on above: Order Comment: Reaso n for Exam Obesity due to excess calories with serious comorbidity, uns Performed By: #### L IPID, CBC, TSH3 wRFLX, CMP, URMACRERAT, A1C WTH eA #### [facility] [address] [place] [address] [place] Protein [Mass/Vol] 6.7 g/dL Normal 6.4-8.[address] [facility] Comment on above: Order Comment: Reaso n for Exam Obesity due to excess calories with serious comorbidity, uns Performed By: #### L IPID, CBC, TSH3 wRFLX, CMP, URMACRERAT, A1C WTH eA #### [facility] [address] [place] [address] [place] Sodium [Moles/Vol] 142 mmol/L Normal 136-[address] [facility] Comment on above: Order Comment: Reaso n for Exam Obesity due to excess calories with serious comorbidity, uns Performed By: #### L IPID, CBC, TSH3 wRFLX, CMP, URMACRERAT, A1C WTH eA #### [facility] [address] [place] [id number] [place] Urea nitrogen [Mass/Vol] 11 mg/dL Normal 7-25 [facility] Comment on above: Order Comment: Reaso n for Exam Obesity due to excess calories with serious comorbidity, uns Performed By: #### L IPID, CBC, TSH3 wRFLX, CMP, URMACRERAT, A1C WTH eA #### [facility] [address] [place] [address] [place] Creatinine [Mass/volume] in UrineOrdered By: John Luu on 09-07-2024 Creatinine (U) [Mass/Vol] 167.00 mg/dL [facility] Comment on above: No reference range e stablished Glucose mean value [Mass/vol ume] in Blood Estimated from glycated hemoglobinOrdered By: John Luu on 09-07-2024 Average glucose Estimated from glycated hemoglobin (Bld) [Mass/Vol] 123 mg/dL [facility] Leukocytes [#/volume] correc abdias for nucleated erythrocytes in Blood by Automated counOrdered By: John Luu on 09-07-2024 WBC corrected for nucl RBC Auto (Bld) [#/Vol] 7.7 10*3/uL 3.8-11.6 [facility] Lipid PanelOrdered By: Volodymyr Luu on 09-07-2024 Cholesterol [Mass/Vol] 166 mg/dL Normal 140-200 [facility] Comment on above: Order Comment: Deb n for Exam Obesity due to excess calories with serious comorbidity, uns Result Comment: Chol less than 200 mg/dl low risk Chol 201-239 mg/dl borderline risk Chol 240 mg/dl and greater high risk Performed By: #### L IPID, CBC, TSH3 wRFLX, CMP, URMACRERAT, A1C WTH eA #### [facility] [address] [place] [id number] [facility] Chol less than 200 m g/dl low riskChol 201-239 mg/dl borderline riskChol 240 mg/dl and greater high risk Cholesterol in HDL [Mass/Vol] 37 mg/dL Normal 23-92 [facility] Comment on above: Order Comment: Deb n for Exam Obesity due to excess calories with serious comorbidity, uns Result Comment: HDL CHOL ATP-III CLASSIFICATION Cardiovascular Risk HDL > or equal to 60 mg/dL LOW HDL < 40 mg/dL HIGH Performed By: #### L IPID, CBC, TSH3 wRFLX, CMP, URMACRERAT, A1C WTH eA #### [facility] [address] [place] [id number] [facility] HDL CHOL ATP-III CLA SSIFICATION Cardiovascular RiskHDL > or equal to 60 mg/dL LOWHDL < 40 mg/dL HIGH Cholesterol.total/Chol esterol in HDL [Mass ratio] 4.5 {ratio} Normal <5.0 [facility] Comment on above: Order Comment: Deb n for Exam Obesity due to excess calories with serious comorbidity, uns Performed By: #### L IPID, CBC, TSH3 wRFLX, CMP, URMACRERAT, A1C WTH eA #### [facility] [address] [place] [id number] [facility] Lipid Panelon 09-07-2024 LDL Cholesterol,Calculated 113 mg/dL High 0-100 [facility] Comment on above: Order [...] wRFLX, CMP, URMACRERAT, A1C WTH eA #### [facility] [address] Triglyceride w/Reflex 78 mg/dL Normal 0-149 [facility] Comment on above: Order [...] wRFLX, CMP, URMACRERAT, A1C WTH eA #### [facility] [address] VLDL CHOLESTEROL 15 mg/dL Normal [facility] Comment on above: Order Comment: Reaso n for Exam Obesity due to excess calories with serious comorbidity, uns Performed By: #### L IPID, CBC, TSH3 wRFLX, CMP, URMACRERAT, A1C WTH eA #### [facility] [address] MCHC Auto (RBC) [Mass/Vol]Or dered By: John Luu on 09-07-2024 MCHC (RBC) [Mass/Vol] 32.4 g/dL 32.0-35.0 [facility] MicroAlb Creat Ratio,UOrdere d By: John Luu on 09-07-2024 Albumin DL <= 20 mg/L (U) [Mass/Vol] 0.9 mg/dL Normal 0.0-1.8 [facility] Comment on above: Order Comment: Reaso n for Exam Obesity due to excess calories with serious comorbidity, uns Performed By: #### L IPID, CBC, TSH3 wRFLX, CMP, URMACRERAT, A1C WTH eA #### [facility] [address] [place] [address] [place] MicroAlb Creat Ratio,Uon Creatinine, Urine (Random) 167.00 mg/dL Normal [facility] Comment on above: Order Comment: Reaso n for Exam Obesity due to excess calories with serious comorbidity, uns Result Comment: No r eference range established Performed By: #### L IPID, CBC, TSH3 wRFLX, CMP, URMACRERAT, A1C WTH eA #### [facility] [address] Microalbumin/Creatinin e Ratio 5.4 mg/g Normal 0.0-30.0 [facility] Comment on above: Order Comment: Reaso n for Exam Obesity due to excess calories with serious comorbidity, uns Result Comment: 30-3 00 mg/g indicates an increased risk for diabetic nephropathy. Greater than 300 mg/g is consistent with clinical nephropathy. (Am. J. Kidney Disease 1995, 25:107) PERFORMED BY: [address] [place] [address] PATHOLOGIST [employer] MARTY SALGADO M.D. Performed By: #### L IPID, CBC, TSH3 wRFLX, CMP, URMACRERAT, A1C WT eA #### [facility] [address] No Panel InformationOrdered By: John Luu on 09-07-2024 Estimated GFR (CKD-EPI) > 60.0 mL/Min [facility] Creatinine Clearance (Chem N/A [facility] Nucleated erythrocytes [Pres ence] in Blood by Automated countOrdered By: John Luu on 09-07-2024 Nucleated RBC Auto Ql (Bld) 0.1 /100{WBC} 0-0.5 [facility] Thyroid Stim Hormone w/Rflxo n 09-07-2024 Thyroid Stim Hormone w/Rflx 0.94 u[iU]/mL Normal 0.45-5.33 [facility] Comment on above: Order Comment: Reaso n for Exam Obesity due to excess calories with serious comorbidity, uns Result Comment: PERF ORMED BY: [place] [id number] PATHOLOGIST [employer] MARTY SALGADO M.D. Performed By: #### L IPID, CBC, TSH3 wRFLX, CMP, URMACRERAT, A1C [facility] eA ####[facility] [id number] Thyrotropin [Units/volume] i n Serum or PlasmaOrdered By: John Luu on 09-07-2024 TSH Qn 0.94 m[IU]/L 0.45-5.33 [facility] Triglyceride [Mass/volume] i n Serum or PlasmaOrdered By: John Luu on 09-07-2024 Triglyceride [Mass/Vol] 78 mg/dL 0-149 [facility] Comment on above: TRIG ATP III CLASSIF ICATIONTRIG less than 150 mg/dL NormalTRIG 150-199 mg/dL Borderline highTRIG 200-500 mg/dL High TRIG greater than 500 mg/dL Very highStandard traceable to the Center for Disease Conrtrol and Prevention (CDC) test method. Urine microalbumin/creatinin e mass ratioOrdered By: John Luu on 09-07-2024 Albumin/Creatinine DL <= 20 mg/L (U) [Mass ratio] 5.4 mg/g 0.0-30.0 [facility] Comment on above: 30-300 mg/g indicate s an increased risk for diabetic nephropathy. Greater than 300 mg/g is consistent with clinical nephropathy. (Am. J. Kidney Disease 1995, 25:107) XR foot RT min 3V*on 024 XR foot RT min 3V* [facility] Main [place] [address] [place] [address] XRay Report Signed Patient: Loy Tam MR#: [id number] : 1980 Acct:[id number] Age/Sex: 43 / F ADM Date: 08/07/24 Loc: ER Room: Type: [facility] ER Attending Dr: Copies to: Agustin [...] Sarah Mistry M.D.08/07/2024 11:28 AM Dictation Location: [place] [address] Transcribed By: [facility] 08/07/24 112 Dictated By: Sarah Mistry MD 08/07/241125 Signed By: 08/07/24 112 Normal [facility] Activated partial thrombopla stin time (aPTT) in platelet poor plasma by coagulation aOrdered By: Jovan Hutson on 07-10-2024 aPTT Coag (PPP) [Time] 33.6 s 25.1-36.5 [facility] Comment on above: A hematocrit value g reater than 55% may lead to inaccurate results in coagulation testing. Patients having hematocrit values >55% require a special collection tube for coagulation studies. Please contact the laboratory at [phone] for redraw instructions. Alanine aminotransferase [En zymatic activity/volume] in Serum or PlasmaOrdered By: Jovan Hutson on 07-10-2024 ALT [Catalytic activity/Vol] 34 U/L Normal 7-52 [facility] Comment on above: Performed By: #### L IPASE, CBC, BMP, PT, PTT, HEPATIC ####[facility] Akm5084 [place] [id number] [facility] Albumin [Mass/volume] in Ser um or Plasma by Bromocresol green (BCG) dye binding methoOrdered By: Jovan Hutson on 07-10-2024 Albumin BCG dye [Mass/Vol] 4.2 g/dL 3.5-5.7 [facility] Alkaline phosphatase [Enzyma tic activity/volume] in Serum or PlasmaOrdered By: Jovan Hutson on 07-10-2024 ALP [Catalytic activity/Vol] 106 U/L High 34-104 [facility] Comment on above: Performed By: #### L IPASE, CBC, BMP, PT, PTT, HEPATIC ####[address] Aspartate aminotransferase [ Enzymatic activity/volume] in Serum or PlasmaOrdered By: Jovan Hutson on 07-10-2024 AST [Catalytic activity/Vol] 18 U/L Normal 13-39 [facility] Comment on above: Performed By: #### L IPASE, CBC, BMP, PT, PTT, HEPATIC ####[place] [id number] [facility] Automated basophil %Ordered By: Jovan Hutson on 07-10-2024 Basophils/100 WBC (Bld) 0.8 % Normal . [facility] Comment on above: Performed By: #### L IPASE, CBC, BMP, PT, PTT, HEPATIC ####[address] Automated basophil countOrde red By: Jovan Hutson on 07-10-2024 Basophils (Bld) [#/Vol] 0.1 10*3/uL Normal 0.0-0.2 [facility] Comment on above: Result Comment: PERF ORMED BY: [facility] [address] [place] [address] PATHOLOGIST [employer] MARTY SALGADO M.D. Performed By: #### L IPASE, CBC, BMP, PT, PTT, HEPATIC ####[place] [id number] [facility] Automated blood monocyte cou ntOrdered By: Jovan Hutson on 07-10-2024 Monocytes (Bld) [#/Vol] 0.5 10*3/uL Normal 0.0-0.8 [facility] Comment on above: Performed By: #### L IPASE, CBC, BMP, PT, PTT, HEPATIC ####[address] Automated eosinophil %Ordere d By: Jovan Hutson on 07-10-2024 Eosinophils/100 WBC (Bld) 4.5 % Normal . [facility] Comment on above: Performed By: #### L IPASE, CBC, BMP, PT, PTT, HEPATIC ####[address] Automated eosinophil countOr dered By: Jovan Hutson on 07-10-2024 Eosinophils (Bld) [#/Vol] 0.4 10*3/uL Normal 0.0-0.45 [facility] Comment on above: Performed By: #### L IPASE, CBC, BMP, PT, PTT, HEPATIC ####[address] Automated monocyte %Ordered By: Jovan Hutson on 07-10-2024 Monocytes/100 WBC (Bld) 6.1 % Normal . [facility] Comment on above: Performed By: #### L IPASE, CBC, BMP, PT, PTT, HEPATIC ####[address] Automated neutrophil %Ordere d By: Jovan Hutson on 07-10-2024 Neutrophils/100 WBC (Bld) 62.1 % Normal . [facility] Comment on above: Performed By: #### L IPASE, CBC, BMP, PT, PTT, HEPATIC ####[address] Bacteria [Presence] in Urine by AutomatedOrdered By: Jovan Hutson on 07-10-2024 Bacteria Auto Ql (U) None seen [HPF] None Seen [facility] Basic Metabolic Panelon 06-28 Creatinine Clr Calc Pharmacy 115.15 Normal [facility] Comment on above: Performed By: #### L IPASE, CBC, BMP, PT, PTT, HEPATIC ####[address] GFR/1.73 sq M.predicted MDRD (S/P/Bld) [Vol rate/Area] mL/min/{1.73_m2} Normal [facility] Comment on above: Performed By: #### L IPASE, CBC, BMP, PT, PTT, HEPATIC ####[place] [address] [place] Bilirubin Test strip Ql (U)O rdered By: Jovan Hutson on 07-10-2024 Bilirubin Ql (U) Negative Negative [facility] Bilirubin.direct [Mass/volum e] in Serum or PlasmaOrdered By: Jovan Hutson on 07-10-2024 Bilirubin.direct [Mass/Vol] 0.10 mg/dL 0.03-0.18 [facility] Bilirubin.total [Mass/volume ] in Serum or PlasmaOrdered By: Jovan Hutson on 07-10-2024 Bilirubin [Mass/Vol] 0.4 mg/dL Normal 0.3-1.0 [facility] Comment on above: Performed By: #### L IPASE, CBC, BMP, PT, PTT, HEPATIC ####[facility] Rlp[address] abdomen pelvis w conon CT abdomen pelvis w con [facility] Main [place] [address] [place] [address] CT Scan Report Signed Patient: Loy Tam MR#: [id number] : 1980 Acct:[id number] Age/Sex: 43 / F ADM Date: 07/10/24 Loc: ER Room: Type: [facility] ER Attending Dr: Copies to: Jovan [...] Sarah Mistry M.D.07/10/2024 8:49 PM Dictation Location: [place] [address] Transcribed By: [facility] 07/10/242048 Dictated By: Sarah Mistry MD 07/10/242043 Signed By: 07/10/242048 Normal [facility] Calcium [Mass/volume] in Ser um or PlasmaOrdered By: Jovan Hutson on 07-10-2024 Calcium [Mass/Vol] 9.5 mg/dL Normal 8.6-10.[address] [facility] Comment on above: Performed By: #### L IPASE, CBC, BMP, PT, PTT, HEPATIC ####[facility] [id number] [place] [id number] [facility] Carbon dioxide, total [Moles /volume] in Serum or PlasmaOrdered By: Jovan Hutson on 07-10-2024 CO2 [Moles/Vol] 29.7 mmol/L Normal 21.0-31.0 [facility] Comment on above: Performed By: #### L IPASE, CBC, BMP, PT, PTT, HEPATIC ####[facility] Chloride [Moles/volume] in S brian or PlasmaOrdered By: Jovan Hutson on 07-10-2024 Chloride [Moles/Vol] 105 mmol/L Normal 98-107 [facility] Comment on above: Performed By: #### L IPASE, CBC, BMP, PT, PTT, HEPATIC ####[place] [id number] [address] Color of Urine by AutoOrdere d By: Jovan Hutson on 07-10-2024 Color (U) Light-yellow Normal Yellow [facility] Comment on above: Order Comment: Name Collection Type:: Clean-Voided Midstream Performed By: #### A DDONUAPLUS #### [facility] [address] Complete Blood Count Auto Di ffon 07-10-2024 Mean Corpuscular HGB Conc 32.1 g/dL Normal 32.0-35.0 [facility] Comment on above: Performed By: #### L IPASE, CBC, BMP, PT, PTT, HEPATIC ####[place] [address] Monocytes/100 WBC (Bld) 20.46 % High 0.00-20.00 [facility] Comment on above: Result Comment: For adults in ED, MDW > 20.0 may be associated with a higher risk of sepsis during the first 12 hrs of hospital admission Performed By: #### L IPASE, CBC, BMP, PT, PTT, HEPATIC ####[place] [address]31 [address] NRBC% 0.1 /100{WBC} Normal 0-0.5 [facility] Comment on above: Performed By: #### L IPASE, CBC, BMP, PT, PTT, HEPATIC ####[place] [address]31 [address] Creatinine [Mass/volume] in Serum or PlasmaOrdered By: Jovan Hutson on 07-10-2024 Creatinine [Mass/Vol] 0.83 mg/dL Normal 0.60-1.20 [facility] Comment on above: Performed By: #### L IPASE, CBC, BMP, PT, PTT, HEPATIC ####[facility] Zcm[address] [place] [address] [place] Dipstick and Microscopicon 0 07-10-2024 Bacteria,Urine None Seen Normal None Seen [facility] Comment on above: Order Comment: Name Collection Type:: Clean-Voided Midstream Performed By: #### A DDONUAPLUS #### [place] [address] [place] Bilirubin,Urine Negative Normal Negative [facility] Comment on above: Order Comment: Name Collection Type:: Clean-Voided Midstream Performed By: #### A DDONUAPLUS #### [place] [address] [place] Glucose Ql (U) Normal Normal Normal [facility] Comment on above: Order Comment: Name Collection Type:: Clean-Voided Midstream Performed By: #### A DDONUAPLUS #### [place] [address] [place] Hyaline Casts,Urine None Normal 0-8 [facility] Comment on above: Order Comment: Name Collection Type:: Clean-Voided Midstream Performed By: #### A DDONUAPLUS #### [place] [address] [place] Mucus,Urine Rare Normal [facility] Comment on above: Order Comment: Name Collection Type:: Clean-Voided Midstream Result Comment: PERF ORMED BY: [place] [address] PATHOLOGIST [employer] MARTY SALGADO M.D. Performed By: #### A DDONUAPLUS #### [place] [address] [place] Nitrite,Urine Negative Normal Negative [facility] Comment on above: Order Comment: Name Collection Type:: Clean-Voided Midstream Performed By: #### A DDONUAPLUS #### [place] [address] [place] Occult Blood,Urine 1+ High Negative [facility] Comment on above: Order Comment: Name Collection Type:: Clean-Voided Midstream Performed By: #### A DDONUAPLUS #### [place] [address] [place] Protein,Urine Negative Normal Negative [facility] Comment on above: Order Comment: Name Collection Type:: Clean-Voided Midstream Performed By: #### A DDONUAPLUS #### [place] [address] [place] RBC,Urine 1-2 Normal 0-4 [facility] Comment on above: Order Comment: Name Collection Type:: Clean-Voided Midstream Performed By: #### A DDONUAPLUS #### [place] [address] [place] Specificy [place],Urine > 1.050 High 1.001-1.030 [facility] Comment on above: Order Comment: Name Collection Type:: Clean-Voided Midstream Result Comment: Rech ecked by refractometer Performed By: #### A DDONUAPLUS #### [place] [address] [place] Squamous Epithelial Cell,Urine 3-4 High 0-2 [facility] Comment on above: Order Comment: Name Collection Type:: Clean-Voided Midstream Performed By: #### A DDONUAPLUS #### [place] [address] [place] Urobilinogen,Urine Normal Normal Normal [facility] Comment on above: Order Comment: Name Collection Type:: Clean-Voided Midstream Performed By: #### A DDONUAPLUS #### [place] [id number] [place] WBC,Urine 1-2 Normal 0-4 [facility] Comment on above: Order Comment: Name Collection Type:: Clean-Voided Midstream Performed By: #### A DDONUAPLUS #### [place] [id number] [place] ECG 12 lead ECGon 07-10-2024 ECG 12 lead ECG [facility] Main [place] [address] [place] [address] Electrocardiograph Report Signed Patient: Loy Tam MR#: [id number] : 1980 Acct:[id number] Age/Sex: 43 / F ADM Date: 07/10/24 Loc: ER Room: Type: [facility] ER Attending Dr: Ordering Provider: Jovan [...] change was found Confirmed by Lee Burnette ([id number]) on 07/13/2024 1:07:36 PM Referred By: Electronically Signed By: Lee Burnette Transcribed By: MUS Signed By Lee Burnette MD 07/13/24 1307 Normal [facility] Epithelial cells.squamous [# /area] in Urine sediment by Automated countOrdered By: Jovan Hutson on 07-10-2024 Epithelial cells.squamous Auto (Urine sed) [#/Area] 3-4 [HPF] High 0-2 [facility] Erythrocyte distribution wid th [Ratio] by Automated countOrdered By: Jovan Hutson on 07-10-2024 Erythrocyte distribution width (RBC) [Ratio] 15.2 % Normal 11.9-15.3 [facility] Comment on above: Performed By: #### L IPASE, CBC, BMP, PT, PTT, HEPATIC ####[facility] [address] [place] [address] [facility] Erythrocytes [#/area] in Uri ne sediment by Automated countOrdered By: Jovan Hutson on 07-10-2024 RBC Auto (Urine sed) [#/Area] 1-2 [HPF] 0-4 [facility] Erythrocytes [#/volume] in B lood by Automated countOrdered By: Jovan Hutson on 07-10-2024 RBC (Bld) [#/Vol] 5.73 10*6/uL High 3.60-5.00 [facility] Comment on above: Performed By: #### L IPASE, CBC, BMP, PT, PTT, HEPATIC ####[facility] [place] [address] [facility] Glucose [Mass/volume] in Ser um or PlasmaOrdered By: Jovan Hutson on 07-10-2024 Glucose [Mass/Vol] 85 mg/dL Normal 70-[address] [facility] Comment on above: ADA recommended refe rence rangeRandom Glucose Reference Range is dependent on time and content of last meal. Glucose of more than 200 mg/dL in a nonstressed, ambulatory subject supports the diagnosis of Diabetes Mellitus. Result Comment: [place] Glucose Reference Range is dependent on time and content of last meal. Glucose of more than 200 mg/dL in a nonstressed, ambulatory subject supports the diagnosis of Diabetes Mellitus. ADA recommended reference range Performed By: #### L IPASE, CBC, BMP, PT, PTT, HEPATIC ####[facility] [place] [address] [facility] Glucose [Mass/volume] in Uri ne by Test stripOrdered By: Jovan Hutson on 07-10-2024 Glucose Test strip (U) [Mass/Vol] Normal mg/dL Normal [facility] Hematocrit [Volume Fraction] of Blood by Automated countOrdered By: Jovan Hutson on 07-10-2024 Hematocrit (Bld) [Volume fraction] 43.3 % Normal 34.0-46.4 [facility] Comment on above: Performed By: #### L IPASE, CBC, BMP, PT, PTT, HEPATIC ####[place] [address] [place] [address] [facility] Hemoglobin Test strip Ql (U) Ordered By: Jovan Hutson on 07-10-2024 Hemoglobin Ql (U) 1+ High Negative [facility] Hemoglobin [Mass/volume] in BloodOrdered By: Jovan Hutson on 07-10-2024 Hemoglobin (Bld) [Mass/Vol] 13.9 g/dL Normal 11.8-15.4 [facility] Comment on above: Performed By: #### L IPASE, CBC, BMP, PT, PTT, HEPATIC ####[place] [address] Hepatic Panelon 07-10-2024 Albumin [Mass/Vol] 4.2 g/dL Normal 3.5-5.7 [facility] Comment on above: Performed By: #### L IPASE, CBC, BMP, PT, PTT, HEPATIC ####[address] Bilirubin,Indirect 0.3 mg/dL Normal [facility] Comment on above: Performed By: #### L IPASE, CBC, BMP, PT, PTT, HEPATIC ####[address] Bilirubin.indirect [Mass/Vol] 0.10 mg/dL Normal 0.03-0.18 [facility] Comment on above: Performed By: #### L IPASE, CBC, BMP, PT, PTT, HEPATIC ####[address] Hyaline casts [#/area] in Ur ine sediment by Automated countOrdered By: Jovan Hutson on 07-10-2024 Hyaline casts Auto (Urine sed) [#/Area] None [LPF] 0-8 [facility] INR in Platelet poor plasma by Coagulation assayOrdered By: Jovan Hutson on 07-10-2024 INR Coag (PPP) [Relative time] 1.1 {INR} Normal [facility] Comment on above: INR Therapeutic Rang e [...] L IPASE, CBC, BMP, PT, PTT, HEPATIC ####[facility] [address] [place] [address] [place] Ketones [Presence] in Urine by Test stripOrdered By: Jovan Hutson on 07-10-2024 Ketones Ql (U) Negative Normal Negative [facility] Comment on above: Order Comment: Name Collection Type:: Clean-Voided Midstream Performed By: #### A DDONUAPLUS #### [facility] [address] [place] [address] [place] Leukocyte esterase [Presence ] in Urine by Test stripOrdered By: Jovan Hutson on 07-10-2024 Leukocyte esterase Test strip Ql (U) Negative Normal Negative [facility] Comment on above: Order Comment: Name Collection Type:: Clean-Voided Midstream Performed By: #### A DDONUAPLUS #### [facility] [address] [place] [address] [place] Leukocytes [#/area] in Urine sediment by Automated countOrdered By: Jovan Hutson on 07-10-2024 WBC Auto (Urine sed) [#/Area] 1-2 [HPF] 0-4 [facility] Leukocytes [#/volume] correc abdias for nucleated erythrocytes in Blood by Automated counOrdered By: Jovan Hutson on 07-10-2024 WBC corrected for nucl RBC Auto (Bld) [#/Vol] 8.5 10*3/uL 3.8-11.6 [facility] Leukocytes [#/volume] in Blo od by Automated countOrdered By: Jovan Hutson on 07-10-2024 WBC (Bld) [#/Vol] 8.5 10*3/uL Normal 3.8-11.[address] [facility] Comment on above: Performed By: #### L IPASE, CBC, BMP, PT, PTT, HEPATIC ####[facility] [address] [place] [address] [place] Lipase [Enzymatic activity/v olume] in Serum or PlasmaOrdered By: Jovan Hutson on 07-10-2024 Lipase [Catalytic activity/Vol] 15.0 U/L Normal 11.0-82.0 [facility] Comment on above: Result Comment: PERF ORMED BY: [facility] [address] [place] [id number] PATHOLOGIST [employer] MARTY SALGADO M.D. Performed By: #### L IPASE, CBC, BMP, PT, PTT, HEPATIC ####[address] Lymphocytes [#/volume] in Bl ood by Automated countOrdered By: Jovan Hutson on 07-10-2024 Lymphocytes (Bld) [#/Vol] 2.3 10*3/uL Normal 1.00-4.8 [facility] Comment on above: Performed By: #### L IPASE, CBC, BMP, PT, PTT, HEPATIC ####[address] Lymphocytes/100 leukocytes i n Blood by Automated countOrdered By: Jovan Hutson on 07-10-2024 Lymphocytes/100 WBC (Bld) 26.5 % Normal . [facility] Comment on above: Performed By: #### L IPASE, CBC, BMP, PT, PTT, HEPATIC ####[place] [id number] [facility] MCH [Entitic mass] by Automa abdias countOrdered By: Jovan Hutson on 07-10-2024 MCH (RBC) [Entitic mass] 24.3 pg Low 24.7-34.3 [facility] Comment on above: Performed By: #### L IPASE, CBC, BMP, PT, PTT, HEPATIC ####[place] [id number] [facility] MCHC Auto (RBC) [Mass/Vol]Or dered By: Jovan Hutson on 07-10-2024 MCHC (RBC) [Mass/Vol] 32.1 g/dL 32.0-35.0 [facility] MCV [Entitic volume] by Auto mated countOrdered By: Jovan Hutson on 07-10-2024 MCV (RBC) [Entitic vol] 75.5 fL Low 80-100 [facility] Comment on above: Performed By: #### L IPASE, CBC, BMP, PT, PTT, HEPATIC ####[place] [id number] Monocyte distribution width [Entitic volume] in Blood by AutomatedOrdered By: Jovan Hutson on 07-10-2024 Monocyte distribution width Auto (Bld) [Entitic vol] 20.46 % High 0.00-20.00 [facility] Comment on above: For adults in ED, MD W > 20.0 may be associated with a higher risk of sepsis during the first 12 hrs of hospital admission Mucus [Presence] in Urine by AutomatedOrdered By: Jovan Hutson on 07-10-2024 Mucus Auto Ql (U) Rare [LPF] [facility] Neutrophils [#/volume] in Bl ood by Automated countOrdered By: Jovan Hutson on 07-10-2024 Neutrophils (Bld) [#/Vol] 5.3 10*3/uL Normal 1.8-7.7 [facility] Comment on above: Performed By: #### L IPASE, CBC, BMP, PT, PTT, HEPATIC ####[place] [address] [place] [id number] [facility] Nitrite Test strip Ql (U)Ord ered By: Jovan Hutson on 07-10-2024 Nitrite Ql (U) Negative Negative [facility] No Panel InformationOrdered By: Jovan Hutson on 07-10-2024 Estimated GFR (CKD-EPI) > 60.0 mL/Min [facility] Creatinine Clearance (Chem 115.15 [facility] Nucleated erythrocytes [Pres ence] in Blood by Automated countOrdered By: Jovan Hutson on 07-10-2024 Nucleated RBC Auto Ql (Bld) 0.1 /100{WBC} 0-0.5 [facility] Partial Thromboplastin Timeo n 07-10-2024 aPTT Coag (Bld) [Time] 33.6 s Normal 25.1-36.5 [facility] Comment on above: Result Comment: A he matocrit value greater than 55% may lead to inaccurate results in coagulation testing. Patients having hematocrit values >55% require a special collection tube for coagulation studies. Please contact the laboratory at [phone] for redraw instructions. PERFORMED BY: [facility] [place] [address] PATHOLOGIST [employer] MARTY SALGADO M.D. Performed By: #### L IPASE, CBC, BMP, PT, PTT, HEPATIC ####[place] [address] [place] [address] [facility] Platelet mean volume [Entiti c volume] in Blood by Automated countOrdered By: Jovan Hutson on 07-10-2024 Platelet mean volume (Bld) [Entitic vol] 7.4 fL Normal 6.3-10.7 [facility] Comment on above: Performed By: #### L IPASE, CBC, BMP, PT, PTT, HEPATIC ####[address] [address] [facility] Platelets [#/volume] in Bloo d by Automated countOrdered By: Jovan Hutson on 07-10-2024 Platelets (Bld) [#/Vol] 358 10*3/uL Normal 150-450 [facility] Comment on above: Performed By: #### L IPASE, CBC, BMP, PT, PTT, HEPATIC ####[address] [address] [facility] Potassium [Moles/volume] in Serum or PlasmaOrdered By: Jovan Hutson on 07-10-2024 Potassium [Moles/Vol] 3.7 mmol/L Normal 3.5-5.1 [facility] Comment on above: Performed By: #### L IPASE, CBC, BMP, PT, PTT, HEPATIC ####[address] [address] [facility] Protein Test strip (U) [Mass /Vol]Ordered By: Jovan Hutson on 07-10-2024 Protein (U) [Mass/Vol] Negative Negative [facility] Protein [Mass/volume] in Ser um or PlasmaOrdered By: Jovan Hutson on 07-10-2024 Protein [Mass/Vol] 7.7 g/dL Normal 6.4-8.[address] [facility] Comment on above: Performed By: #### L IPASE, CBC, BMP, PT, PTT, HEPATIC ####[facility] [place] [id number] [facility] Prothrombin time (PT)Ordered By: Jovan Hutson on 07-10-2024 PT Coag (PPP) [Time] 12.9 s Normal 9.0-12.9 [facility] Comment on above: A hematocrit value g reater than 55% may lead to inaccurate results in coagulation testing. Patients having hematocrit values >55% require a special collection tube for coagulation studies. Please contact the laboratory at [phone] for redraw instructions. Result Comment: A he matocrit value greater than 55% may lead to inaccurate results in coagulation testing. Patients having hematocrit values >55% require a special collection tube for coagulation studies. Please contact the laboratory at [phone] for redraw instructions. Performed By: #### L IPASE, CBC, BMP, PT, PTT, HEPATIC ####[place] [address] Serum globulin measurement b y calculation (mass/volume)Ordered By: Jovan Hutson on 07-10-2024 Globulin (S) [Mass/Vol] 3.5 g/dL [facility] Comment on above: Performed By: #### L IPASE, CBC, BMP, PT, PTT, HEPATIC ####[place] [address] [place] [id number] [facility] Serum or plasma albumin/glob ulin mass ratioOrdered By: Jovan Hutson on 07-10-2024 Albumin/Globulin [Mass ratio] 1.2 {ratio} [facility] Comment on above: Performed By: #### L IPASE, CBC, BMP, PT, PTT, HEPATIC ####[place] [id number] [facility] Serum or plasma anion gap de terminationOrdered By: Jovan Hutson on 07-10-2024 Anion gap [Moles/Vol] 11.0 mmol/L Normal 6.0-15.0 [facility] Comment on above: Performed By: #### L IPASE, CBC, BMP, PT, PTT, HEPATIC ####[place] [id number] [address] Serum or plasma non-glucuron idated bilirubin measurement (mass/volume)Ordered By: Jovan Hutson on 07-10-2024 Bilirubin.indirect [Mass/Vol] 0.3 mg/dL [facility] Sodium [Moles/volume] in Ser um or PlasmaOrdered By: Jovan Hutson on 07-10-2024 Sodium [Moles/Vol] 142 mmol/L Normal 136-[address] [facility] Comment on above: Performed By: #### L IPASE, CBC, BMP, PT, PTT, HEPATIC ####[address] Specific gravity of Urine by RefractometryOrdered By: Jovan Hutson on 07-10-2024 Specific gravity Refractometry (U) [Rel density] > 1.050 High 1.001-1.030 [facility] Comment on above: Rechecked by refract ometer Urea nitrogen [Mass/volume] in Serum or PlasmaOrdered By: Jovan Hutson on 07-10-2024 Urea nitrogen [Mass/Vol] 8 mg/dL Normal 7-25 [facility] Comment on above: Performed By: #### L IPASE, CBC, BMP, PT, PTT, HEPATIC ####[place] [id number] [address] Urine appearanceOrdered By: Jovan Hutson on 07-10-2024 Appearance (U) Clear Normal Clear [facility] Comment on above: Order Comment: Name Collection Type:: Clean-Voided Midstream Performed By: #### A DDONUAPLUS #### [address] Urobilinogen Test strip (U) [Mass/Vol]Ordered By: Jovan Hutson on 07-10-2024 Urobilinogen (U) [Mass/Vol] Normal mg/dL Normal [facility] pH of Urine by Test stripOrd ered By: Jovan Hutson on 07-10-2024 pH (U) 6.5 [pH] Normal 5.0-9.0 [facility] Comment on above: Order Comment: Name Collection Type:: Clean-Voided Midstream Performed By: #### A DDONUAPLUS #### [address] US breast BI limitedon 03-08 US breast BI limited [facility] Main [place] [address] [place] [address] Ultrasound Report Signed Patient: Loy Tam MR#: [id number] : 1980 Acct:[id number] Age/Sex: 43 / F ADM Date: 03/08/24 Loc: [facility] Room: Type: [facility] Attending Dr: John Luu DO, Resident Ordering [...] Alan Matta M.D.03/08/2024 3:19 PM Dictation Location: [facility] Tech: Dana Pardees Transcribed By: ILIA 03/08/24 1519 Dictated By: Alan Matta II, MD 03/08/24 1516 Signed By: 03/08/24 1519 Normal [facility] MM screening mammo BI w/CADo n 12-02-2023 MM screening mammo BI w/CAD [facility] Main [place] [address] [place], [place] [id number] Mammography Report Signed Patient: Loy Tam MR#: [id number] : 1980 Acct:[id number] Age/Sex: 42 / F ADM Date: 12/02/23 Loc: [place] Room: Type: [facility] Attending Dr: Referral Self Copies to: [facility] SELF,REFERRAL Ordering Provider: [...] Sarah Mistry M.D.12/02/2023 3:31 PM Dictation Location: [facility] Transcribed By: [facility] 12/02/23 1531 Dictated By: Sarah Mistry MD 12/02/23 1523 Signed By: 12/02/23 1531 Normal [facility] FE PROon 10-07-2023 % Iron Saturation 12.3 % Low 20-50 [facility] Comment on above: Performed By: #### F E PRO, TSH3 ####[address] [address] [facility] Total Iron Binding Capacity 389 ug/dL Normal 255-450 [facility] Comment on above: Performed By: #### F E PRO, TSH3 ####[address] [address] [facility] Ferritin [Mass/volume] in Se rum or PlasmaOrdered By: Teo Heath on 10-07-2023 Ferritin [Mass/Vol] 23.1 ng/mL Normal 11.0-306.8 [facility] Comment on above: Performed By: #### F E PRO, TSH3 ####[place] [id number] [facility] Iron [Mass/volume] in Serum or PlasmaOrdered By: Teo Heath on 10-07-2023 Iron [Mass/Vol] 48 ug/dL Low 50-212 [facility] Comment on above: Performed By: #### F E PRO, TSH3 ####[place] [id number] [facility] Iron binding capacity [Mass/ volume] in Serum or PlasmaOrdered By: Teo Heath on 10-07-2023 Iron binding capacity [Mass/Vol] 389 ug/dL 255-450 [facility] Iron saturation [Mass Fracti on] in Serum or PlasmaOrdered By: Teo Heath on 10-07-2023 Iron saturation [Mass fraction] 12.3 % 20-50 [facility] Thyrotropin [Units/volume] i n Serum or PlasmaOrdered By: Teo Heath on 10-07-2023 TSH Qn 0.91 m[IU]/L Normal 0.45-5.33 [facility] Comment on above: Result Comment: PERF ORMED BY: [facility] [address] [place] [id number] PATHOLOGIST [employer] MARTY SALGADO M.D. Performed By: #### F Marry PRO, TSH3 ####[facility] [id number] [place] [id number] [facility] Transferrin [Mass/volume] in Serum or PlasmaOrdered By: Teo Heath on 10-07-2023 Transferrin [Mass/Vol] 278 mg/dL Normal 203-362 [facility] Comment on above: Performed By: #### F E PRO, TSH3 ####[facility] [id number] [place] [id number] [facility] Alanine aminotransferase [En zymatic activity/volume] in Serum or PlasmaOrdered By: Marquise Disla on 07-13-2023 ALT [Catalytic activity/Vol] 25 U/L 7-52 [facility] Albumin [Mass/volume] in Ser um or Plasma by Bromocresol green (BCG) dye binding methoOrdered By: Marquise Disla on 07-13-2023 Albumin BCG dye [Mass/Vol] 4.2 g/dL 3.5-5.7 [facility] Alkaline phosphatase [Enzyma tic activity/volume] in Serum or PlasmaOrdered By: Marquise Disla on 07-13-2023 ALP [Catalytic activity/Vol] 113 U/L 34-104 [facility] Aspartate aminotransferase [ Enzymatic activity/volume] in Serum or PlasmaOrdered By: Marquise Disla on 07-13-2023 AST [Catalytic activity/Vol] 13 U/L 13-39 [facility] Basophils Auto (Bld) [#/Vol] Ordered By: Marquise Disla on 07-13-2023 Basophils (Bld) [#/Vol] 0.1 10*3/uL 0.0-0.2 [facility] Basophils/100 WBC Auto (Bld) Ordered By: Marquise Disla on 07-13-2023 Basophils/100 WBC (Bld) 1.2 % . [facility] Bilirubin.total [Mass/volume ] in Serum or PlasmaOrdered By: Marquise Disla on 07-13-2023 Bilirubin [Mass/Vol] 0.6 mg/dL 0.3-1.0 [facility] Calcium [Mass/volume] in Ser um or PlasmaOrdered By: Marquise Disla on 07-13-2023 Calcium [Mass/Vol] 9.6 mg/dL 8.6-10.[address] [facility] Carbon dioxide, total [Moles /volume] in Serum or PlasmaOrdered By: Marquise Disla on 07-13-2023 CO2 [Moles/Vol] 27.9 mmol/L 21.0-31.0 [facility] Chloride [Moles/volume] in S brian or PlasmaOrdered By: Marquise Disla on 07-13-2023 Chloride [Moles/Vol] 106 mmol/L 98-107 [facility] Cholesterol [Mass/volume] in Serum or PlasmaOrdered By: Marquise Disla on 07-13-2023 Cholesterol [Mass/Vol] 208 mg/dL 140-200 [facility] Comment on above: Chol less than 200 m g/dl low riskChol 201-239 mg/dl borderline riskChol 240 mg/dl and greater high risk Cholesterol in LDL Calc [Mas s/Vol]Ordered By: Marquise Disla on 07-13-2023 Cholesterol in LDL [Mass/Vol] 150 mg/dL 0-100 [facility] Comment on above: LDL ATP III CLASSIFI CATIONLDL less than 100 mg/dL OptimalLDL 100-129 mg/dL Near or above optimalLDL 130-159 mg/dL Borderline highLDL 160-189 mg/dL HighLDL greater than 189 mg/dL Very high Cholesterol in LDL [Mass/vol ume] in Serum or PlasmaOrdered By: Marquise Disla on 07-13-2023 Cholesterol in LDL [Mass/Vol] 171 mg/dL 0-100 [facility] Comment on above: LDL ATP III CLASSIFI CATIONLDL less than 100 mg/dL OptimalLDL 100-129 mg/dL Near or above optimalLDL 130-159 mg/dL Borderline highLDL 160-189 mg/dL HighLDL greater than 189 mg/dL Very high Cholesterol in VLDL Calc [Ma ss/Vol]Ordered By: Marquise Disla on 07-13-2023 Cholesterol in VLDL [Mass/Vol] 17 mg/dL [facility] Creatinine [Mass/volume] in Serum or PlasmaOrdered By: Marquise Disla on 07-13-2023 Creatinine [Mass/Vol] 0.69 mg/dL 0.60-1.20 [facility] Eosinophils Auto (Bld) [#/Vo l]Ordered By: Marqusie Disla on 07-13-2023 Eosinophils (Bld) [#/Vol] 0.3 10*3/uL 0.0-0.45 [facility] Eosinophils/100 WBC Auto (Bl d)Ordered By: Marquise Disla on 07-13-2023 Eosinophils/100 WBC (Bld) 3.3 % . [facility] Erythrocyte distribution wid th Auto (RBC) [Ratio]Ordered By: Marquise Disla on 07-13-2023 Erythrocyte distribution width (RBC) [Ratio] 16.1 % 11.9-15.3 [facility] Globulin Calc (S) [Mass/Vol] Ordered By: Marquise Disla on 07-13-2023 Globulin (S) [Mass/Vol] 3.4 g/dL [facility] Glucose [Mass/volume] in Ser um or PlasmaOrdered By: Marquise Disla on 07-13-2023 Glucose [Mass/Vol] 87 mg/dL 70-[address] [facility] Comment on above: ADA recommended refe rence rangeRandom Glucose Reference Range is dependent on time and content of last meal. Glucose of more than 200 mg/dL in a nonstressed, ambulatory subject supports the diagnosis of Diabetes Mellitus. Hematocrit Auto (Bld) [Volum e fraction]Ordered By: Marquise Disla on 07-13-2023 Hematocrit (Bld) [Volume fraction] 39.7 % 34.0-46.4 [facility] Hemoglobin [Mass/volume] in BloodOrdered By: Marquise Disla on 07-13-2023 Hemoglobin (Bld) [Mass/Vol] 12.8 g/dL 11.8-15.4 [facility] Leukocytes [#/volume] correc abdias for nucleated erythrocytes in Blood by Automated counOrdered By: Marquise Disla on 07-13-2023 WBC corrected for nucl RBC Auto (Bld) [#/Vol] 10.3 10*3/uL 3.8-11.6 [facility] Lymphocytes Auto (Bld) [#/Vo l]Ordered By: Marquise Disla on 07-13-2023 Lymphocytes (Bld) [#/Vol] 3.2 10*3/uL 1.00-4.8 [facility] Lymphocytes/100 WBC Auto (Bl d)Ordered By: Marquise Disla on 07-13-2023 Lymphocytes/100 WBC (Bld) 31.0 % . [facility] MCH Auto (RBC) [Entitic mass ]Ordered By: Marquise Disla on 07-13-2023 MCH (RBC) [Entitic mass] 23.1 pg 24.7-34.3 [facility] MCHC Auto (RBC) [Mass/Vol]Or dered By: Marquise Disla on 07-13-2023 MCHC (RBC) [Mass/Vol] 32.2 g/dL 32.0-35.0 [facility] MCV Auto (RBC) [Entitic vol] Ordered By: Marquise Disla on 07-13-2023 MCV (RBC) [Entitic vol] 71.6 fL 80-100 [facility] Monocytes Auto (Bld) [#/Vol] Ordered By: Marquise Disla on 07-13-2023 Monocytes (Bld) [#/Vol] 0.7 10*3/uL 0.0-0.8 [facility] Monocytes/100 WBC Auto (Bld) Ordered By: Marquise Disla on 07-13-2023 Monocytes/100 WBC (Bld) 6.5 % . [facility] Neutrophils Auto (Bld) [#/Vo l]Ordered By: Marquise Disla on 07-13-2023 Neutrophils (Bld) [#/Vol] 6.0 10*3/uL 1.8-7.7 [facility] Neutrophils/100 WBC Auto (Bl d)Ordered By: Marquise Disla on 07-13-2023 Neutrophils/100 WBC (Bld) 58.0 % . [facility] No Panel InformationOrdered By: Marquise Disla on 07-13-2023 Estimated GFR (CKD-EPI) > 60.0 mL/Min [facility] Creatinine Clearance (Chem N/A [facility] Nucleated erythrocytes [Pres ence] in Blood by Automated countOrdered By: Marquise Disla on 07-13-2023 Nucleated RBC Auto Ql (Bld) 0.2 /100{WBC} 0-0.5 [facility] Platelet mean volume Auto (B ld) [Entitic vol]Ordered By: Marquise Disla on 07-13-2023 Platelet mean volume (Bld) [Entitic vol] 7.2 fL 6.3-10.7 [facility] Platelets Auto (Bld) [#/Vol] Ordered By: Marquise Disla on 07-13-2023 Platelets (Bld) [#/Vol] 394 10*3/uL 150-450 [facility] Potassium [Moles/volume] in Serum or PlasmaOrdered By: Marquise Disla on 07-13-2023 Potassium [Moles/Vol] 4.3 mmol/L 3.5-5.1 [facility] Protein [Mass/volume] in Ser um or PlasmaOrdered By: Marquise Disla on 07-13-2023 Protein [Mass/Vol] 7.6 g/dL 6.4-8.[address] [facility] RBC Auto (Bld) [#/Vol]Ordere d By: Marquise Disla on 07-13-2023 RBC (Bld) [#/Vol] 5.55 10*6/uL 3.60-5.00 [facility] Serum or plasma albumin/glob ulin mass ratioOrdered By: Marquise Disla on 07-13-2023 Albumin/Globulin [Mass ratio] 1.2 {ratio} [facility] Serum or plasma anion gap de terminationOrdered By: Marquise Disla on 07-13-2023 Anion gap [Moles/Vol] 11.4 mmol/L 6.0-15.0 [facility] Serum or plasma high density lipoprotein (HDL) cholesterol measurementOrdered By: Marquise Disla on 07-13-2023 Cholesterol in HDL [Mass/Vol] 40 mg/dL 23-92 [facility] Comment on above: HDL CHOL ATP-III CLA SSIFICATION Cardiovascular RiskHDL > or equal to 60 mg/dL LOWHDL < 40 mg/dL HIGH Serum or plasma total choles terol/high density lipoprotein (HDL) cholesterol mass ratOrdered By: Marquise Disla on 07-13-2023 Cholesterol.total/Chol esterol in HDL [Mass ratio] 5.2 {ratio} <5.0 [facility] Sodium [Moles/volume] in Ser um or PlasmaOrdered By: Marquise Disla on 07-13-2023 Sodium [Moles/Vol] 141 mmol/L 136-[address] [facility] Triglyceride [Mass/volume] i n Serum or PlasmaOrdered By: Marquise Disla on 07-13-2023 Triglyceride [Mass/Vol] 88 mg/dL 0-149 [facility] Comment on above: TRIG ATP III CLASSIF ICATIONTRIG less than 150 mg/dL NormalTRIG 150-199 mg/dL Borderline highTRIG 200-500 mg/dL High TRIG greater than 500 mg/dL Very highStandard traceable to the Center for Disease Conrtrol and Prevention (CDC) test method. Urea nitrogen [Mass/volume] in Serum or PlasmaOrdered By: Marquise Disla on 07-13-2023 Urea nitrogen [Mass/Vol] 10 mg/dL 7-25 [facility] Vitamin B12 ser/plasOrdered By: Marquise Disla on 07-13-2023 Cobalamin (Vitamin B12) [Mass/Vol] 324 pg/mL 180-914 [facility] WBC Auto (Bld) [#/Vol]Ordere d By: Marquise Disla on 07-13-2023 WBC (Bld) [#/Vol] 10.3 10*3/uL 3.8-11.6 [facility] Automated erythrocytes count in urine sediment (number/area)Ordered By: Agustin Sandra on 07-01-2023 RBC Auto (Urine sed) [#/Area] 5-9 [HPF] 0-4 [facility] Automated leukocytes count i n urine sediment (number/area)Ordered By: Agustin Sandra on 07-01-2023 WBC Auto (Urine sed) [#/Area] 0-1 [HPF] 0-4 [facility] Basophils Auto (Bld) [#/Vol] Ordered By: Agustin Sandra on 07-01-2023 Basophils (Bld) [#/Vol] 0.1 10*3/uL 0.0-0.2 [facility] Basophils/100 WBC Auto (Bld) Ordered By: Agustin Sandra on 07-01-2023 Basophils/100 WBC (Bld) 0.6 % . [facility] Bilirubin Test strip Ql (U)O rdered By: Agustin Sandra on 07-01-2023 Bilirubin Ql (U) Negative Negative [facility] Calcium [Mass/volume] in Ser um or PlasmaOrdered By: Agustin Sandra on 07-01-2023 Calcium [Mass/Vol] 9.3 mg/dL 8.6-10.[address] [facility] Carbon dioxide, total [Moles /volume] in Serum or PlasmaOrdered By: Agustin Sandra on 07-01-2023 CO2 [Moles/Vol] 27.9 mmol/L 21.0-31.0 [facility] Chloride [Moles/volume] in S brian or PlasmaOrdered By: Agustin Sandra on 07-01-2023 Chloride [Moles/Vol] 104 mmol/L 98-107 [facility] Color Auto (U)Ordered By: Naun Sandra on 07-01-2023 Color (U) Yellow Yellow [facility] Creatinine [Mass/volume] in Serum or PlasmaOrdered By: Agustin Sandra on 07-01-2023 Creatinine [Mass/Vol] 0.79 mg/dL 0.60-1.20 [facility] Eosinophils Auto (Bld) [#/Vo l]Ordered By: Agustin Sandra on 07-01-2023 Eosinophils (Bld) [#/Vol] 0.1 10*3/uL 0.0-0.45 [facility] Eosinophils/100 WBC Auto (Bl d)Ordered By: Agustin Sandra on 07-01-2023 Eosinophils/100 WBC (Bld) 1.1 % . [facility] Erythrocyte distribution wid th Auto (RBC) [Ratio]Ordered By: Agustin Sandra on 07-01-2023 Erythrocyte distribution width (RBC) [Ratio] 16.1 % 11.9-15.3 [facility] Glucose [Mass/volume] in Ser um or PlasmaOrdered By: Agustin Sandra on 07-01-2023 Glucose [Mass/Vol] 92 mg/dL 70-[address] [facility] Comment on above: ADA recommended refe rence rangeRandom Glucose Reference Range is dependent on time and content of last meal. Glucose of more than 200 mg/dL in a nonstressed, ambulatory subject supports the diagnosis of Diabetes Mellitus. HCG ( test) IA.rapi d Ql (U)Ordered By: Agustin Sandra on 07-01-2023 HCG ( test) Ql (U) Negative [facility] Hematocrit Auto (Bld) [Volum e fraction]Ordered By: Agustin Sandra on 07-01-2023 Hematocrit (Bld) [Volume fraction] 38.1 % 34.0-46.4 [facility] Hemoglobin [Mass/volume] in BloodOrdered By: Agustin Sandra on 07-01-2023 Hemoglobin (Bld) [Mass/Vol] 12.3 g/dL 11.8-15.4 [facility] Ketones Auto test strip (U) [Mass/Vol]Ordered By: Agustin Sandra on 07-01-2023 Ketones (U) [Mass/Vol] Negative Negative [facility] Laboratory - UrinalysisOrder ed By: Agustin Sandra on 07-01-2023 Hyaline casts LM Ql (Urine sed) None seen [LPF] 0-8 [facility] Leukocytes [#/volume] correc abdias for nucleated erythrocytes in Blood by Automated counOrdered By: Agustin Sandra on 07-01-2023 WBC corrected for nucl RBC Auto (Bld) [#/Vol] 8.2 10*3/uL 3.8-11.6 [facility] Lymphocytes Auto (Bld) [#/Vo l]Ordered By: Agustin Sandra on 07-01-2023 Lymphocytes (Bld) [#/Vol] 0.7 10*3/uL 1.00-4.8 [facility] Lymphocytes/100 WBC Auto (Bl d)Ordered By: Agustin Sandra on 07-01-2023 Lymphocytes/100 WBC (Bld) 8.1 % . [facility] MCH Auto (RBC) [Entitic mass ]Ordered By: Agustin Sandra on 07-01-2023 MCH (RBC) [Entitic mass] 23.0 pg 24.7-34.3 [facility] MCHC Auto (RBC) [Mass/Vol]Or dered By: Agustin Sandra on 07-01-2023 MCHC (RBC) [Mass/Vol] 32.3 g/dL 32.0-35.0 [facility] MCV Auto (RBC) [Entitic vol] Ordered By: Agustin Sandra on 07-01-2023 MCV (RBC) [Entitic vol] 71.2 fL 80-100 [facility] Monocyte distribution width [Entitic volume] in Blood by AutomatedOrdered By: Agustin Sandra on 07-01-2023 Monocyte distribution width Auto (Bld) [Entitic vol] 24.10 % 0.00-20.00 [facility] Comment on above: For adults in ED, MD W > 20.0 may be associated with a higher risk of sepsis during the first 12 hrs of hospital admission Monocytes Auto (Bld) [#/Vol] Ordered By: Agustin Sandra on 07-01-2023 Monocytes (Bld) [#/Vol] 0.7 10*3/uL 0.0-0.8 [facility] Monocytes/100 WBC Auto (Bld) Ordered By: Agustin Sandra on 07-01-2023 Monocytes/100 WBC (Bld) 8.5 % . [facility] Neutrophils Auto (Bld) [#/Vo l]Ordered By: Agustin Sandra on 07-01-2023 Neutrophils (Bld) [#/Vol] 6.7 10*3/uL 1.8-7.7 [facility] Neutrophils/100 WBC Auto (Bl d)Ordered By: Agustin Sandra on 07-01-2023 Neutrophils/100 WBC (Bld) 81.7 % . [facility] Nitrite Test strip Ql (U)Ord ered By: Agustin Sandra on 07-01-2023 Nitrite Ql (U) Negative Negative [facility] No Panel InformationOrdered By: Agustin Sandra on 07-01-2023 Estimated GFR (CKD-EPI) > 60.0 mL/Min [facility] Creatinine Clearance (Chem 127.26 [facility] Nucleated erythrocytes [Pres ence] in Blood by Automated countOrdered By: Agustin Sandra on 07-01-2023 Nucleated RBC Auto Ql (Bld) 0.0 /100{WBC} 0-0.5 [facility] Platelet mean volume Auto (B ld) [Entitic vol]Ordered By: Agustin Sandra on 07-01-2023 Platelet mean volume (Bld) [Entitic vol] 7.4 fL 6.3-10.7 [facility] Platelets Auto (Bld) [#/Vol] Ordered By: Agustin Sandra on 07-01-2023 Platelets (Bld) [#/Vol] 320 10*3/uL 150-450 [facility] Potassium [Moles/volume] in Serum or PlasmaOrdered By: Agustin Sandra on 07-01-2023 Potassium [Moles/Vol] 3.9 mmol/L 3.5-5.1 [facility] Protein Auto test strip (U) [Mass/Vol]Ordered By: Agustin Sandra on 07-01-2023 Protein (U) [Mass/Vol] Negative Negative [facility] RBC Auto (Bld) [#/Vol]Ordere d By: Agustin Sandra on 07-01-2023 RBC (Bld) [#/Vol] 5.35 10*6/uL 3.60-5.00 [facility] Serum or plasma anion gap de terminationOrdered By: Agustin Sandra on 07-01-2023 Anion gap [Moles/Vol] 11.0 mmol/L 6.0-15.0 [facility] Sodium [Moles/volume] in Ser um or PlasmaOrdered By: Agustin Sandra on 07-01-2023 Sodium [Moles/Vol] 139 mmol/L 136-[address] [facility] Specific gravity Auto test s trip (U) [Rel density]Ordered By: Agustin Sandra on 07-01-2023 Specific gravity (U) [Rel density] 1.012 1.001-1.030 [facility] Squamous epithelial cells de tection in urine sediment by light microscopyOrdered By: Agustin Sandra 07-01-2023 Epithelial cells.squamous LM Ql (Urine sed) 0-1 [HPF] 0-2 [facility] Urea nitrogen [Mass/volume] in Serum or PlasmaOrdered By: Agustin Sandra on 07-01-2023 Urea nitrogen [Mass/Vol] 7 mg/dL 7-25 [facility] Urine bacteria detection by automated methodOrdered By: Agustin Sandra on 07-01-2023 Bacteria Auto Ql (U) None seen None Seen [facility] Urine clarity by refractomet ry automatedOrdered By: Agustin Sandra on 07-01-2023 Clarity Refractometry automated (U) Cloudy Clear [facility] Urine glucose measurement by automated test strip (mass/volume)Ordered By: Agustin Sandra on 07-01-2023 Glucose Auto test strip (U) [Mass/Vol] Normal mg/dL Normal [facility] Urine hemoglobin detection b y automated test stripOrdered By: Agustin Sandra on 07-01-2023 Hemoglobin Auto test strip Ql (U) Trace Negative [facility] Urine leukocyte esterase det ection by automated test stripOrdered By: Agustin Sandra on 07-01-2023 Leukocyte esterase Auto test strip Ql (U) Negative Negative [facility] Urobilinogen Auto test strip (U) [Mass/Vol]Ordered By: Agustin Sandra on 07-01-2023 Urobilinogen (U) [Mass/Vol] Normal mg/dL Normal [facility] WBC Auto (Bld) [#/Vol]Ordere d By: Agustin Sandra on 07-01-2023 WBC (Bld) [#/Vol] 8.2 10*3/uL 3.8-11.[address] [facility] pH Auto test strip (U)Ordere d By: Agustin Sandra on 07-01-2023 pH (U) 8.5 [pH] 5.0-9.0 [facility] Basophils Auto (Bld) [#/Vol] Ordered By: Lars Guerra on 05-31-2023 Basophils (Bld) [#/Vol] 0.1 10*3/uL 0.0-0.2 [facility] Basophils/100 WBC Auto (Bld) Ordered By: Lars Guerra on 05-31-2023 Basophils/100 WBC (Bld) 1.5 % . [facility] Calcium [Mass/volume] in Ser um or PlasmaOrdered By: Lars Guerra on 05-31-2023 Calcium [Mass/Vol] 9.1 mg/dL 8.6-10.[address] [facility] Carbon dioxide, total [Moles /volume] in Serum or PlasmaOrdered By: Lars Guerra on 05-31-2023 CO2 [Moles/Vol] 29.3 mmol/L 21.0-31.0 [facility] Chloride [Moles/volume] in S brian or PlasmaOrdered By: Lars Guerra on 05-31-2023 Chloride [Moles/Vol] 106 mmol/L 98-107 [facility] Creatinine [Mass/volume] in Serum or PlasmaOrdered By: Lars Guerra on 05-31-2023 Creatinine [Mass/Vol] 0.87 mg/dL 0.60-1.20 [facility] Eosinophils Auto (Bld) [#/Vo l]Ordered By: Lars Guerra on 05-31-2023 Eosinophils (Bld) [#/Vol] 0.3 10*3/uL 0.0-0.45 [facility] Eosinophils/100 WBC Auto (Bl d)Ordered By: Lars Guerra on 05-31-2023 Eosinophils/100 WBC (Bld) 3.5 % . [facility] Erythrocyte distribution wid th Auto (RBC) [Ratio]Ordered By: Lars Guerra on 05-31-2023 Erythrocyte distribution width (RBC) [Ratio] 16.2 % 11.9-15.3 [facility] Glucose [Mass/volume] in Ser um or PlasmaOrdered By: Lars Guerra on 05-31-2023 Glucose [Mass/Vol] 91 mg/dL 70-[address] [facility] Comment on above: ADA recommended refe rence rangeRandom Glucose Reference Range is dependent on time and content of last meal. Glucose of more than 200 mg/dL in a nonstressed, ambulatory subject supports the diagnosis of Diabetes Mellitus. Hematocrit Auto (Bld) [Volum e fraction]Ordered By: Lars Guerra on 05-31-2023 Hematocrit (Bld) [Volume fraction] 38.8 % 34.0-46.4 [facility] Hemoglobin [Mass/volume] in BloodOrdered By: Lars Guerra on 05-31-2023 Hemoglobin (Bld) [Mass/Vol] 12.4 g/dL 11.8-15.4 [facility] Leukocytes [#/volume] correc abdias for nucleated erythrocytes in Blood by Automated counOrdered By: Lars Guerra on 05-31-2023 WBC corrected for nucl RBC Auto (Bld) [#/Vol] 9.9 10*3/uL 3.8-11.6 [facility] Lymphocytes Auto (Bld) [#/Vo l]Ordered By: Lars Guerra on 05-31-2023 Lymphocytes (Bld) [#/Vol] 3.7 10*3/uL 1.00-4.8 [facility] Lymphocytes/100 WBC Auto (Bl d)Ordered By: Lars Guerra on 05-31-2023 Lymphocytes/100 WBC (Bld) 37.9 % . [facility] MCH Auto (RBC) [Entitic mass ]Ordered By: Lars Guerra on 05-31-2023 MCH (RBC) [Entitic mass] 23.0 pg 24.7-34.3 [facility] MCHC Auto (RBC) [Mass/Vol]Or dered By: Lars Guerra on 05-31-2023 MCHC (RBC) [Mass/Vol] 31.9 g/dL 32.0-35.0 [facility] MCV Auto (RBC) [Entitic vol] Ordered By: Lars Guerra on 05-31-2023 MCV (RBC) [Entitic vol] 72.0 fL 80-100 [facility] Monocyte distribution width [Entitic volume] in Blood by AutomatedOrdered By: Lars Guerra on 05-31-2023 Monocyte distribution width Auto (Bld) [Entitic vol] 18.79 % 0.00-20.00 [facility] Monocytes Auto (Bld) [#/Vol] Ordered By: Lars Guerra on 05-31-2023 Monocytes (Bld) [#/Vol] 0.5 10*3/uL 0.0-0.8 [facility] Monocytes/100 WBC Auto (Bld) Ordered By: Lars Guerra on 05-31-2023 Monocytes/100 WBC (Bld) 5.1 % . [facility] Neutrophils Auto (Bld) [#/Vo l]Ordered By: Lars Guerra on 05-31-2023 Neutrophils (Bld) [#/Vol] 5.1 10*3/uL 1.8-7.7 [facility] Neutrophils/100 WBC Auto (Bl d)Ordered By: Lars Guerra on 05-31-2023 Neutrophils/100 WBC (Bld) 52.0 % . [facility] No Panel InformationOrdered By: Lars Guerra on 05-31-2023 Estimated GFR (CKD-EPI) > 60.0 mL/Min [facility] Creatinine Clearance (Chem 112.72 [facility] Nucleated erythrocytes [Pres ence] in Blood by Automated countOrdered By: Lars Guerra on 05-31-2023 Nucleated RBC Auto Ql (Bld) 0.2 /100{WBC} 0-0.5 [facility] Platelet mean volume Auto (B ld) [Entitic vol]Ordered By: Lars Guerra on 05-31-2023 Platelet mean volume (Bld) [Entitic vol] 7.3 fL 6.3-10.7 [facility] Platelets Auto (Bld) [#/Vol] Ordered By: Lars Guerra on 05-31-2023 Platelets (Bld) [#/Vol] 349 10*3/uL 150-450 [facility] Potassium [Moles/volume] in Serum or PlasmaOrdered By: Lars Guerra on 05-31-2023 Potassium [Moles/Vol] 3.5 mmol/L 3.5-5.1 [facility] RBC Auto (Bld) [#/Vol]Ordere d By: Lars Guerra on 05-31-2023 RBC (Bld) [#/Vol] 5.39 10*6/uL 3.60-5.00 [facility] Serum or plasma anion gap de terminationOrdered By: Lars Guerra on 05-31-2023 Anion gap [Moles/Vol] 10.2 mmol/L 6.0-15.0 [facility] Sodium [Moles/volume] in Ser um or PlasmaOrdered By: Lars Guerra on 05-31-2023 Sodium [Moles/Vol] 142 mmol/L 136-[address] [facility] Troponin I.cardiac [Mass/vol ume] in Serum or Plasma by Detection limit <= 0.01 ng/Ordered By: Lars Guerra on 05-31-2023 Troponin I.cardiac DL <= 0.01 ng/mL [Mass/Vol] 5.9 pg/mL 0.0-15.0 [facility] Urea nitrogen [Mass/volume] in Serum or PlasmaOrdered By: Lars Guerra on 05-31-2023 Urea nitrogen [Mass/Vol] 9 mg/dL 7-25 [facility] WBC Auto (Bld) [#/Vol]Ordere d By: Lars Guerra on 05-31-2023 WBC (Bld) [#/Vol] 9.9 10*3/uL 3.8-11.[address] [facility] Serum heterophile antibody d etection by latex agglutinationOrdered By: Arnoldo Pérez on 01-19-2023 Heterophile Ab LA Ql (S) Negative Negative [facility] Streptococcus pyogenes antig en detectionOrdered By: Arnoldo Pérez on 01-19-2023 S. pyogenes Ag Ql (Unsp spec) [facility] COVID CepheidOrdered By: Radha Cooper on 01-08-2023 SARS-CoV-2 (COVID-19) Ab IA Ql Negative Negative [facility] Comment on above: This is a duplicate Cepheid Xpert Xpress CoV-2/Flu/RSV Plus RNA by RT-PCR result to be used for statistical tracking purpose only. SARS-CoV-2 (COVID-19) RNA AMBROSE+probe Ql (Unsp spec) [facility] Streptococcus pyogenes antig en detectionOrdered By: Caitlyn Cooper on 01-04-2023 S. pyogenes Ag Ql (Unsp spec) [facility] COVID CepheidOrdered By: Cachorro Breaux on 11-17-2022 SARS-CoV-2 (COVID-19) Ab IA Ql Negative Negative [facility] Comment on above: This is a duplicate Cepheid Xpert Xpress CoV-2/Flu/RSV Plus RNA by RT-PCR result to be used for statistical tracking purpose only. SARS-CoV-2 (COVID-19) RNA AMBROSE+probe Ql (Unsp spec) [facility] SARS-CoV-2 (COVID-19) RNA AMBROSE+probe Ql (Unsp spec) [facility] COVID-19 SOFIAOrdered By: Jose Pearl on 08-23-2022 SARS-CoV+SARS-CoV-2 (COVID-19) Ag IA.rapid Ql (Resp) Negative Negative [facility] Comment on above: This is a duplicate Lilibeth SARS Antigen (REGINO) result to be used for statistical tracking purpose only. No Panel InformationOrdered By: Praveen Pearl on 08-23-2022 SARS Antigen (LFIA) [facility] POINT OF CARE GLUCOSEon 05-0 Glucose [Mass/Vol] 116 mg/dL Critically high 74-106 [facility] Comment on above: Performed By: #### P OCGLUC #### [facility] [address] [address] [address] Mai Salamanca PREG HCG QUALon 03-30-2022 , QUAL Negative Normal NEGATIVE [facility] Comment on above: Performed By: #### P REG #### [facility] [address] [address] [address] Mai Salamanca Vital Signs Date Time Vital Sign Value Performing Clinician Facility 08-23-2024 13:37-0400 Diastolic blood pressure 86 mm[Hg] [facility] Work Phone: [facility] 08-23-2024 13:37-0400 Heart rate 86 /min [facility] Work Phone: [facility] 08-23-2024 13:37-0400 Respiratory rate 16 /min [facility] Work Phone: [facility] 08-23-2024 13:37-0400 SaO2% (BldA) [Mass fraction] 100 % [facility] [employer] Work Phone: [facility] 08-23-2024 13:37-0400 Systolic blood pressure 130 mm[Hg] [facility] Work Phone: [facility] 08-23-2024 12:43-0400 Body height 175.26 cm [facility] Work Phone: [facility] 08-23-2024 12:43-0400 Body weight 111.58 kg [facility] Work Phone: [facility] 08-23-2024 12:40-0400 Body temperature 97.9 [degF] [facility] Work [facility]: [facility] 08-07-2024 11:03-0400 Body height 176.53 cm [facility] Work [facility]: [facility] 08-07-2024 11:03-0400 Body temperature 99 [degF] [facility] Work [facility]: [facility] 08-07-2024 11:03-0400 Body weight 112 kg [facility] Work Phone: [facility] 08-07-2024 11:03-0400 Diastolic blood pressure 83 mm[Hg] [facility] Work [facility]: [facility] 08-07-2024 11:03-0400 Heart rate 105 /min [facility] Work [facility]: [facility] 08-07-2024 11:03-0400 Respiratory rate 18 /min [facility] Work [facility]: [facility] 08-07-2024 11:03-0400 SaO2% (BldA) [Mass fraction] 100 % [facility] Work [facility]: [facility] 08-07-2024 11:03-0400 Systolic blood pressure 155 mm[Hg] [facility] Work [facility]: [facility] 07-10-2024 19:29-0400 Diastolic blood pressure 92 mm[Hg] [facility] Work [facility]: [facility] 07-10-2024 19:29-0400 Heart rate 83 /min [facility] Work [facility]: [facility] 07-10-2024 19:29-0400 Respiratory rate 18 /min [facility] Work [facility]: [facility] 07-10-2024 19:29-0400 SaO2% (BldA) [Mass fraction] 99 % [facility] Work [facility]: [facility] 07-10-2024 19:29-0400 Systolic blood pressure 143 mm[Hg] [facility] Work [facility]: [facility] 07-10-2024 16:27-0400 Body height 175.26 cm [facility] Work [facility]: [facility] 07-10-2024 16:27-0400 Body temperature 98.7 [degF] [facility] Work [facility]: [facility] 07-10-2024 16:27-0400 Body weight 113.75 kg [facility] Work Phone: [facility] 07-01-2023 11:53-0400 Diastolic blood pressure 85 mm[Hg] [facility] Work [facility]: [facility] 07-01-2023 11:53-0400 Heart rate 92 /min [facility] Work [facility]: [facility] 07-01-2023 11:53-0400 Systolic blood pressure 149 mm[Hg] [facility] Work [facility]: [facility] 07-01-2023 09:37-0400 Body height 176.53 cm [facility] Work [facility]: [facility] 07-01-2023 09:37-0400 Body temperature 99.3 [degF] [facility] Work [facility]: [facility] 07-01-2023 09:37-0400 Body weight 122.46 kg [facility] Work [facility]: [facility] 07-01-2023 09:37-0400 Respiratory rate 24 /min [facility] Work [facility]: [facility] 07-01-2023 09:37-0400 SaO2% (BldA) [Mass fraction] 99 % [facility] Work [facility]: [facility] 06-19-2023 00:00-0400 Diastolic blood pressure 61 mm[Hg] [facility] Work [facility]: [facility] 06-19-2023 00:00-0400 Heart rate 71 /min [facility] Work [facility]: [facility] 06-19-2023 00:00-0400 Respiratory rate 20 /min [facility] Work [facility]: [facility] 06-19-2023 00:00-0400 SaO2% (BldA) [Mass fraction] 100 % [facility] Work [facility]: [facility] 06-19-2023 00:00-0400 Systolic blood pressure 129 mm[Hg] [facility] Work [facility]: [facility] 06-18-2023 21:21-0400 Body height 175.26 cm [facility] Work [facility]: [facility] 06-18-2023 21:21-0400 Body weight 117.02 kg [facility] Work Phone: [facility] 06-18-2023 21:20-0400 Body temperature 98.6 [degF] [facility] Work Phone: [facility] 06-03-2023 11:58-0400 Diastolic blood pressure 90 mm[Hg] [facility] Work [facility]: [facility] 06-03-2023 11:58-0400 Heart rate 91 /min [facility] Work Phone: [facility] 06-03-2023 11:58-0400 Systolic blood pressure 145 mm[Hg] [facility] Work Phone: [facility] 05-31-2023 04:30-0400 Diastolic blood pressure 82 mm[Hg] [facility] Work [facility]: [facility] 05-31-2023 04:30-0400 Heart rate 75 /min [facility] Work [facility]: [facility] 05-31-2023 04:30-0400 Respiratory rate 20 /min [facility] Work Phone: [facility] 05-31-2023 04:30-0400 SaO2% (BldA) [Mass fraction] 98 % [facility] Work [facility]: [facility] 05-31-2023 04:30-0400 Systolic blood pressure 150 mm[Hg] [facility] Work [facility]: [facility] 05-30-2023 23:32-0400 Body height 176.53 cm [facility] Work [facility]: [facility] 05-30-2023 23:32-0400 Body temperature 98.2 [degF] [facility] Work [facility]: [facility] 05-30-2023 23:32-0400 Body weight 117.02 kg [facility] Work [facility]: [facility] 04-18-2023 12:10-0400 Body temperature 98.2 [degF] [facility] Work [facility]: [facility] 04-18-2023 12:10-0400 Diastolic blood pressure 91 mm[Hg] [facility] Work [facility]: [facility] 04-18-2023 12:10-0400 Heart rate 86 /min [facility] Work [facility]: [facility] 04-18-2023 12:10-0400 Respiratory rate 18 /min [facility] Work [facility]: [facility] 04-18-2023 12:10-0400 SaO2% (BldA) [Mass fraction] 100 % [facility] Work [facility]: [facility] 04-18-2023 12:10-0400 Systolic blood pressure 169 mm[Hg] [facility] Work [facility]: [facility] 04-18-2023 12:06-0400 Body height 175.26 cm [facility] Work [facility]: [facility] 04-18-2023 12:06-0400 Body weight 129.1 kg [facility] Work [facility]: [facility] 01-19-2023 09:40-0500 Diastolic blood pressure 67 mm[Hg] [facility] Work [facility]: [facility] 01-19-2023 09:40-0500 Heart rate 86 /min [facility] Work [facility]: [facility] 01-19-2023 09:40-0500 Respiratory rate 20 /min [facility] Work [facility]: [facility] 01-19-2023 09:40-0500 SaO2% (BldA) [Mass fraction] 100 % [facility] Work [facility]: [facility] 01-19-2023 09:40-0500 Systolic blood pressure 145 mm[Hg] [facility] Work [facility]: [facility] 01-19-2023 07:19-0500 Body height 175.26 cm [facility] Work [facility]: [facility] 01-19-2023 07:19-0500 Body temperature 98 [degF] [facility] Work [facility]: [facility] 01-19-2023 07:19-0500 Body weight 127.3 kg [facility] Work [facility]: [facility] 01-08-2023 14:52-0500 Body height 176.53 cm [facility] Work [facility]: [facility] 01-08-2023 14:52-0500 Body temperature 98.9 [degF] [facility]: [facility] 01-08-2023 14:52-0500 Body weight 124.45 kg [facility] Work [facility]: [facility] 01-08-2023 14:52-0500 Diastolic blood pressure 74 mm[Hg] [facility] Work [facility]: [facility] 01-08-2023 14:52-0500 Heart rate 93 /min [facility] Work [facility]: [facility] 01-08-2023 14:52-0500 Respiratory rate 20 /min [facility] Work [facility]: [facility] 01-08-2023 14:52-0500 SaO2% (BldA) [Mass fraction] 98 % [facility] Work [facility]: [facility] 01-08-2023 14:52-0500 Systolic blood pressure 143 mm[Hg] [facility]: [facility] 01-04-2023 11:34-0500 Body height 175.26 cm [facility]: [facility] 01-04-2023 11:34-0500 Body temperature 98.7 [degF] [facility]: [facility] 01-04-2023 11:34-0500 Body weight 107.9 kg [facility]: [facility] 01-04-2023 11:34-0500 Diastolic blood pressure 91 mm[Hg] [facility] Work [facility]: [facility] 01-04-2023 11:34-0500 Heart rate 98 /min [facility] Work [facility]: [facility] 01-04-2023 11:34-0500 Respiratory rate 18 /min [facility] Work [facility]: [facility] 01-04-2023 11:34-0500 SaO2% (BldA) [Mass fraction] 100 % [facility] Work [facility]: [facility] 01-04-2023 11:34-0500 Systolic blood pressure 165 mm[Hg] [facility]: [facility] 11-17-2022 02:32-0500 Diastolic blood pressure 98 mm[Hg] [facility]: [facility] 11-17-2022 02:32-0500 Heart rate 92 /min [facility] Work [facility]: [facility] 11-17-2022 02:32-0500 Respiratory rate 18 /min [facility] Work [facility]: [facility] 11-17-2022 02:32-0500 SaO2% (BldA) [Mass fraction] 98 % [facility]: [facility] 11-17-2022 02:32-0500 Systolic blood pressure 168 mm[Hg] [facility] Work [facility]: [facility] 11-16-2022 23:12-0500 Body height 176.53 cm [facility] Work [facility]: [facility] 11-16-2022 23:12-0500 Body weight 126.35 kg [facility] Work [facility]: [facility] 11-16-2022 23:11-0500 Body temperature 98.1 [degF] [facility] Work [facility]: [facility] 09-17-2022 23:07-0400 Body height 175.26 cm [facility] Work [facility]: [facility] 09-17-2022 23:07-0400 Body temperature 98.2 [degF] [facility] Work [facility]: [facility] 09-17-2022 23:07-0400 Body weight 124.25 kg [facility] Work Phone: [facility] 09-17-2022 23:07-0400 Diastolic blood pressure 70 mm[Hg] [facility] Work [facility]: [facility] 09-17-2022 23:07-0400 Heart rate 75 /min [facility] Work Phone: [facility] 09-17-2022 23:07-0400 Respiratory rate 18 /min [facility] Work Phone: [facility] 09-17-2022 23:07-0400 SaO2% (BldA) [Mass fraction] 94 % [facility] Work [facility]: [facility] 09-17-2022 23:07-0400 Systolic blood pressure 153 mm[Hg] [facility] Work [facility]: [facility] 08-23-2022 07:17-0400 Body height 175.26 cm DO Clyde Visci Work Phone: [facility] 08-23-2022 07:17-0400 Body temperature 98.2 [degF] DO [facility]de Visci Work Phone: [facility] 08-23-2022 07:17-0400 Body weight 110.22 kg DO Clyde Visci Work Phone: [facility] 08-23-2022 07:17-0400 Diastolic blood pressure 75 mm[Hg] DO Clyde Visci Work Phone: [facility] 08-23-2022 07:17-0400 Heart rate 83 /min DO Clyde Visci Work Phone: [facility] 08-23-2022 07:17-0400 Respiratory rate 18 /min DO Clyde Visci Work Phone: [facility] 08-23-2022 07:17-0400 SaO2% (BldA) [Mass fraction] 100 % DO Clyde Visci Work Phone: [facility] 08-23-2022 07:17-0400 Systolic blood pressure 145 mm[Hg] DO Clyde Visci Work Phone: [facility] 07-13-2022 12:00-0400 Body height 175.26 cm Jase Rosenberg Other [facility] Other 07-13-2022 12:00-0400 Body mass index (BMI) [Ratio] 39.13 kg/m2 Jase Hadleyxa Other [facility] Other 07-13-2022 12:00-0400 Body weight 120.2 kg Jase Hadleyxa Other [facility] Other 07-06-2022 21:44-0400 Body height 176.53 cm DO Clyde Visci Work Phone: [facility] 07-06-2022 21:44-0400 Body weight 112.49 kg DO Clyde Visci Work Phone: [facility] 07-06-2022 21:43-0400 Body temperature 98.2 [degF] DO Clyde Visci Work Phone: [facility] 07-06-2022 21:43-0400 Diastolic blood pressure 72 mm[Hg] DO Clyde Visci Work Phone: [facility] 07-06-2022 21:43-0400 Heart rate 93 /min DO Clyde Visci Work Phone: [facility] 07-06-2022 21:43-0400 Respiratory rate 17 /min DO Clyde Visci Work Phone: [facility] 07-06-2022 21:43-0400 SaO2% (BldA) [Mass fraction] 100 % DO Clyde Visci Work Phone: [facility] 07-06-2022 21:43-0400 Systolic blood pressure 135 mm[Hg] DO [facility]de Visci Work Phone: [facility] 2019 13:18-0500 BMI (Body Mass Index) 40.2 kg/m2 [facility] 2019 13:18-0500 Body Temperature 98.2 [degF] [facility] 2019 13:18-0500 Body weight 127.3 kg [facility] 2019 13:18-0500 BP Diastolic 81 mm[Hg] [facility] 2019 13:18-0500 BP Systolic 143 mm[Hg] [facility] 2019 13:18-0500 Height 177.8 cm [facility] 2019 13:18-0500 Pulse (Heart Rate) 88 /min [facility] 2019 13:18-0500 Pulse Oximetry 99 % Clyde Aguilera [facility] 2019 13:18-0500 Respiratory Rate 17 /min [facility] Encounters Encounter Date Encounter Type Care Provider Facility Start: 09-07-2024 End: 09-07-2024 [facility] Work Phone: [facility] [place] Work Phone: Start: 09-07-2024 End: 09-07-2024 ambulatory Teo Heath Facility:[facility] Start: 08-23-2024 End: 08-23-2024 Emergency department [facility] visit [facility] Work Phone: [facility] Work Phone: Start: 08-07-2024 End: 08-07-2024 Emergency department [facility] visit [facility] Work Phone: [facility] Work Phone: Start: 07-10-2024 End: 07-10-2024 Emergency department [facility] visit [facility] Work Phone: [facility] Work Phone: Start: 03-12-2024 End: 03-13-2024 ambulatory Alfie Dixon MD Facility:[facility] Start: 03-08-2024 End: 03-08-2024 [facility] encounter procedure [facility] Work Phone: [facility] Start: 03-08-2024 End: 03-08-2024 [facility]ulatory [facility]: [facility] Work Phone: Start: 02-27-2024 End: 02-28-2024 ambulatory Alfie Dixon MD Facility:[facility] Start: 02-06-2024 End: 02-07-2024 ambulatory Alfie Dixon MD Facility:[facility] Start: 12-02-2023 End: 12-02-2023 [facility] encounter procedure [facility] Phone: [facility] Work Phone: Start: 12-02-2023 End: 12-02-2023 [facility]ulatory [facility]: [facility] Work Phone: Start: 10-07-2023 End: 10-07-2023 Patient encounter procedure [facility] Work Phone: [facility] [place] Work Phone: Start: 10-07-2023 End: 10-07-2023 ambulatory [facility]: [facility] Work Phone: Start: 08-09-2023 End: 08-09-2023 ambulatory [facility] Work Phone: [facility] Work Phone: Start: 08-09-2023 End: 08-09-2023 Patient encounter procedure [facility] Work Phone: [facility]Electro[facility] Work Phone: Start: 07-13-2023 End: 07-13-2023 ambulatory [facility]: [facility] Work Phone: Start: 07-13-2023 End: 07-13-2023 Patient encounter procedure [facility] Work Phone: [facility] [place] Work Phone: Start: 07-01-2023 End: 07-01-2023 Emergency department [facility] visit [facility] Work Phone: [facility] Work Phone: Start: 06-18-2023 End: 06-19-2023 Emergency department [facility] visit [facility] Work Phone: [facility] Work Phone: Start: 06-14-2023 End: 06-14-2023 ambulatory Jase Rosenberg Other [facility] [employer] Other Start: 06-14-2023 Office outpatient visit 15 minutes Jase Shakira [facility] Start: 06-14-2023 End: 06-14-2023 [facility] encounter procedure [facility] Work Phone: [facility] Start: 06-03-[address] Marcos Gregory Facility:[id number] Start: 05-30-2023 End: 05-31-2023 Emergency department [facility] visit [facility] Work Phone: [facility] Work Phone: Start: 05-12-2023 ambulatory ANGEL SWAIN . Facility:[facility] Start: 04-18-2023 End: 04-18-2023 Emergency department [facility] visit [facility] Work Phone: [facility] Work Phone: Start: 02-10-2023 End: 02-11-[address] UZAIR LIGHT . Facility:[facility] Start: 01-19-2023 End: 01-19-2023 Emergency department [facility] visit [facility] Work Phone: [facility] Work Phone: Start: 01-08-2023 End: 01-08-2023 Emergency department [facility] visit [facility] Work Phone: [facility] Work Phone: Start: 01-04-2023 End: 01-04-2023 Emergency department [facility] visit [facility] Work Phone: [facility] Work Phone: Start: 11-16-2022 End: 11-17-2022 Emergency department [facility] visit [facility] Work Phone: [facility] Start: 11-04-2022 End: 11-05-[address] UZAIR LIGHT . Facility:[facility] Start: 10-12-2022 End: 10-12-2022 Patient encounter procedure Services [facility] Work Phone: [facility] Start: 09-17-2022 End: 09-18-2022 Emergency department patient visit [facility] Work Phone: [facility]Emergency Room Start: 08-23-2022 End: 08-23-2022 Emergency department patient visit DO Clyde Visci Work Phone: [facility]Emergency Room Start: 08-18-2022 End: 08-18-2022 Patient encounter procedure DO Clyde Visci Work Phone: [facility] [address] Start: 07-13-2022 End: 07-13-2022 ambulatory Jase Rosenberg Other [facility] Other Start: 07-13-2022 Office outpatient ne w 45 minutes Jase Rosenberg [facility] Start: 07-08-2022 End: 07-09-[address] UZAIR LIGHT . Facility:[facility] Start: 07-06-2022 End: 07-06-2022 Emergency department patient visit DO Clyde Visci Work Phone: [facility]Emergency Room Start: 04-15-2022 End: 04-16-[address] UZAIR LIGHT . Facility:[facility] Start: 03-30-2022 End: 03-30-[address] UZAIR LIGHT . Facility:[facility] Start: 01-08-2020 End: 01-08-2020 Patient encounter procedure Clyde Visci -Ul[facility]ound [facility] [place] Start: 2019 End: 2019 Emergency department patient visit Clyde Visci -Emergency Room Start: 09-17-2019 End: 09-17-2019 Emergency department patient visit Clyde Visci -Emergency Room Start: 12-26-2018 End: 12-26-2018 Patient encounter procedure Clyde Visci -XRay [address] Start: 02-02-2005 Evaluation and management of inpatient Clyde Aguilera -[facility] Post Procedures Date Procedure Procedure Detail Performing Clinician Start: 08-07-2024 X-ray of right foot Ser katie [facility] Phone: Start: 07-10-2024 Computed tomography of abdomen and pelvis with contrast [facility] Phone: Start: 03-08-2024 Ultrasonography of b ilateral breasts [facility] Phone: Start: 12-02-2023 Screening mammograph y of bilateral breasts [facility] Phone: Start: 06-18-2023 CT of head without contrast [facility] Phone: Start: 06-18-2023 Plain X-ray of left shoulder [facility] Phone: Start: 06-14-2023 Plain X-ray of left wrist [facility] Phone: Start: 06-03-2023 Radionuclide myocard ial perfusion stress study [facility] Phone: Start: 05-31-2023 Plain chest X-ray Servi rachel [facility] Phone: Start: 04-18-2023 Plain X-ray of left wrist [facility] Phone: Start: 01-19-2023 Streptococcus pyogen es antigen assay [facility] Phone: Start: 01-08-2023 SARS-CoV-2, Influenz a & RSV (PCR) [facility] Phone: Start: 01-04-2023 Streptococcus pyogen es antigen assay [facility] Phone: Start: 11-17-2022 SARS-CoV-2, Influenz a & RSV (PCR) [facility] Phone: Start: 10-12-2022 X-ray of left ankle Ser katie [facility] Phone: Start: 08-18-2022 MRI of right knee DO Ri gael [facility] Work Phone: Start: 07-06-2022 Plain X-ray of [...] SARS-CoV-2, Influenz a & RSV (PCR) [facility] Work Phone: Plan of Treatment Date Care Activity Detail Author Start: 07-10-2024 [facility] Start: 06-18-2023 CT of head without contrast CT head/ brain wo con [facility] Start: 06-18-2023 CT Unspecified body region WO contrast [facility] Start: 06-18-2023 Plain X-ray of left shoulder XR shoulder LT min 2V* [facility] Start: 06-18-2023 XR Shoulder - left Views [facility] Start: 05-31-2023 [facility] Start: 05-31-2023 Plain chest X-ray XR chest 2V* [facility] Start: 05-31-2023 XR Chest [address] [facility] Cardiovascular stres s testing [facility] Patient Education [facility] Patient referral [facility] Immunizations Immunization Date Immunization Notes Care Provider Fa cility 12-10-2018 tetanus toxoid, redu nissa diphtheria toxoid, and acellular pertussis vaccine, adsorbed Clyde Aguilera [facility] Payers Date Payer Category Payer Medicare 2023 Self-pay [id number] 2022 Medicaid [id number] 1978 Unknown [id number] 1978 Unknown [id number] 1978 Unknown [id number] 1978 Unknown [id number] 1978 Unknown [id number] 1978 Unknown [id number] 2.16.840.1.201630.3.579.2.5 93 1978 Unknown [id number] 2.16.840.1.153201.3.579.2.3 56 1978 Unknown [id number] 2.16.840.1.156089.3.579.2.1 96 1978 Unknown [id number] 2.16.840.1.004762.3.579.2.1 96 1978 Unknown [id number] 2.16.840.1.439122.3.579.2.1 1961 Medicare [id number] 1959 Unknown [id number] 2.16.840.1.303862.19 Private Health Insurance [id number] Unknown Self Pay [id number] Unknown Regular Auto/Liability [id number] 2.16.840.1.467351.3.579.2.5 31 Unknown [id number] 2.16.840.1.335078.3.579.2.5 31 Unknown [id number] 2.16.840.1.334731.3.579.2.5 31 Unknown [id number] 2.16.840.1.209687.3.579.2.5 31 Unknown [id number] 2.16.840.1.515941.3.579.2.5 31 Unknown [id number] 2.16.840.1.414780.3.579.2.5 31 Unknown [id number] 2.16.840.1.159924.3.579.2.5 31 Social History Date Type Detail Facility Start: 2019 End: 08-07-2024 Tobacco smoking status [facility]IS Ex-smoker (finding) [facility] Start: 1980 Sex Assigned At Female [facility] Sex Assigned At Sex Assigned At [facility] Other Start: 07-06-2022 End: 08-23-2024 Tobacco smoking status [facility] Never smoked tobacco (finding) [facility] NEGATED: Highlighted row [facility] Goals Date Patient Goal Desired Activity /State [...] any persistent symptoms 5 to 7 days. [facility] Work Phone: 06-14-2023 Evaluation note Encounter Date [...] We also discussed a carpal tunnel release. [facility] Other 03-16-2023 NoteCONSULTATION CONSULTATION DATE: 02/10/2023 HISTORY: [...] in three months' time, unless otherwise indicated.[id number] Discharge instructions Additional Instructions Take the [...] fever difficulty breathing vomiting or any other [facility] Work Phone: 1(765) 988-574112-08-2022 NoteCONSULTATION CONSULTATION DATE: 11/04/2022 HISTORY OF PRESENT [...] 20-30 a week. Patient does work at [employer] and is on her foot a lot. [...] Patient agrees with the plan of care.[id number] Evaluation note* Encounter Date Diagnosis Assessment Notes [...] tolerated the injection well without adverse reaction. [facility] Other 08-11-2022 NoteCONSULTATION CONSULTATION DATE: 07/08/2022 HISTORY [...] pending appointment with Dr. Rosenberg, Orthopedic in [place] next week. 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 She is on her feet a lot and has recently experienced left lower extremity swelling. Overall, the patient felt that's some pressure has been released with this recent sympathetic block. Current medications include gabapentin 200 mg a.m., 200 mg noon and 400 mg at dusk, Percocet 5/325 t.i.d., Vistaril and a vitamin complex. The patient does continue to go to physical therapy at [facility] in [place]. Activities that aggravate her pain are standing, [...] of care and would like to proceed. [facility] Signed and Approved by: NICO GARCIAS . 04/19/2022 15:06:00[facility] noteNo assessment information availableBrown [facility] Work Phone: History general Narrative - Reported* Type Description Date Medical History Rheumatoid arthritis Medical History carpal tunnel Medical History diabetes Medical History HTN Surgical History Bilateral feet surgery-heel spu rs Surgical History x 2 Surgical History gall bladder Surgical History tendon repair, nerve repair lef t lower extremity 2020 Surgical History left carpal tunnel release 2020 Hospitalization History see surgeries [facility] Other Hospital Discharge instructions Additional Instructions Tylenol every 4 hours as needed for pain Return if symptoms are worse Watch for signs of infection Follow-up with your nailbed salon and get the false nail removed tomorrow [facility] Work Phone: Hospital Discharge instructions Additional Instructions Follow-up with your primary care doctor Return to ED if develop worsening symptoms or concern[facility] Work Phone: Hospital Discharge instructions Additional Instructions I am not able to prescribe you any pain medication as you have a current prescription for Percocet.[facility] Work Phone: Hospital Discharge instructions Additional Instructions Return to emergency room for shortness of breath, if you feel you have throat swelling, increased pain or other concerns [facility] Work Phone: Advance Directives Advance [...] FOR VISIT (unrecogniz ed section and content) [facility] ER LT WRIST CYST RT KNE E PAIN WXLeft Wrist Pain, Right Carpal Tunnel SyndromeLeft Wrist Pain, Right Carpal Tunnel Syndrome Care Teams (unrecognized sec tion and content) Team Status: Active Member Role Status [facility] Primary Care Provider Active Team Status: Active Member Role Status Breana Aguilera DO Attending Provider Active Team Status: Inactive Member Role Status [facility] Primary Care Provider Active Agustin Sandra APRN Emergency Provider Active Team Status: Inactive Member Role Status [facility] Primary Care Provider Active Lars Guerra DO Emergency Provider Active Team Status: Inactive Member Role Status [facility] Primary Care Provider Active Marissa Elliott APRN Emergency Provider Active Team Status: Inactive Member Role Status [facility] Primary Care Provider Active Praveen Pearl DO Emergency Provider Active Team Status: Inactive Member Role Status [facility] Primary Care Provider Active Jase Rosenberg MD Attending Provider Active Team Status: Inactive Member Role Status [facility] Primary Care Provider Active Ayan Andrade MD Emergency Provider Active Team Status: Inactive Member Role Status [facility] Primary Care Provider Active Jase Breaux Jr, MD Emergency Provider Active Team Status: Inactive Member Role Status [facility] Primary Care Provider Active Abner Garcia DPM MS Attending Provider Active Team Status: Inactive Member Role Status [facility] Primary Care Provider Active [employer]IR[employer] Myles Emergency Provider Active Team Status: Inactive Member Role Status [facility] Primary Care Provider Active Arnoldo Pérez DO Emergency Provider Active Team Status: Inactive Member Role Status [facility] Primary Care Provider Active Jase Breaux Jr, [...] DATE CREATED AUTHOR AUTHOR'S ORGANIZ ATION 06/04/2023 [facility] DATE CREATED AUTHOR AUTHOR'S ORGANIZ ATION 03/21/2024 [facility] DATE CREATED AUTHOR AUTHOR'S ORGANHAYDEN ATION 09/10/2024 [facility] FOR RECORDS PERTAINING TO [...] BE BASED ON THE PRIMARY CLINICAL RECORDS. [facility] [employer] [facility] provides no warranty or guarantee of the accuracy or completeness of information in this document.
[2024-10-08 10:31] LABS: HCG Qualitative NEGATIVE (NEGATIVE); Internal Control Within Normal Limits
[2024-10-08 10:56] VITALS: BP 148/94; PULSE 80; TEMP 36.3; O2SAT 100
[2024-10-08] MEDS: FAMOTIDINE/PF 20 MG/2 ML VIAL IV (11:18)
[2024-10-08] MEDS: 0.9 % SODIUM CHLORIDE 500 ML IV (11:18)
[2024-10-08] MEDS: SCOPOLAMINE 1 MG/3 DAYS TRANSDERM PATCH 1 PATCH TD (11:26)
[2024-10-08] MEDS: CEFAZOLIN SODIUM/DEXTROSE,ISO 1 GM/50 ML PREMIX IV (11:31)
[2024-10-08] MEDS: LIDOCAINE HCL 2%-EPINEPHRINE 1:200,000 20 ML MDV 17 ML INJ (12:48)
--- NOTE | 2024-10-08 12:52 | W.PM.PROCNOT ---
Date of procedure: 10/08/24 Pre-op diagnosis: CRPS type 1, left lower extremity Post-op diagnosis: same as pre-op Procedure: Procedure: Spinal cord stimulator trial Procedure Performed by: Alfie Dixon M.D. Procedure: Placement of [employer] 16 contact neuroelectrode trial lead under fluoroscopic guidance *Needle Instrument And Control Service Person at the interspace below L1/2 *Final Lead Placement Level at the top of the vertebral body T8 Anesthesia: Monitored Anesthesia Care is medically necessary for the procedure due to the procedure requiring the patient to remain motionless for a prolonged period of time. Procedure: Risks, Benefits, Alternatives were reviewed and informed consent was obtained in the preop holding area. All questions were answered appropriately. The patient was brought to the operating room and placed in the prone position with padding under all bony prominences. A pre-procedure time out was performed specifying pt. name, nature site and side of surgery, and allergies. Anesthesia provided appropriate sedation as the skin over the thoracic and lumbar spine were prepped with duraprep and draped in the usual sterile fashion. Under fluoroscopic guidance, the above noted interspace was identified as the site for epidural needle entry. The skin and subcutaneous tissues were anesthetized approximately 1 level inferior to this point with a mixture of 1% lidocaine and 0.25% bupivacaine. Two 14 gauge tuouy needles were inserted to the superior aspect of the lamina just inferior to the target interspace. Then, using loss of resistance technique as well as fluoroscopic guidance, the epidural space was entered. One [employer] Trial Stimulator Lead was then advanced under intermittent fluoroscopic guidance until the distal tip of the electrode was observed to be in position at the final position noted above. After appropriate electrode placement was achieved, stimulation was tested intraoperatively with multiple lead configurations until concordant paresthesias were obtained covering the areas of the patients pain. At this point, the needles and stylets were removed carefully and the leads were secured to the skin using steri-strips. The region was covered using a sterile tegaderm bandage. The patient was escorted to the recovery area in stable condition having tolerated the procedure well. Anesthesia: MAC Surgeon: Alfie Dixon Pathology: none sent Condition: stable Disposition: no change
[2024-10-08 12:58] VITALS: BP 113/73; PULSE 85; TEMP 36.3; O2SAT 96
[2024-10-08 13:02] VITALS: BP 125/65; PULSE 73; O2SAT 100
[2024-10-08] MEDS: OXYCODONE HCL/ACETAMINOPHEN 5MG/325MG 1 TAB PO (13:13)
--- NOTE | 2024-10-08 13:26 | PC.NURSE ---
Haydee Gruber from [employer] in to adjust stimulator
== END 2024-10-08 13:40 | disposition home or self-care (01) ==
LOC: SURGOUT 10:04
PROVIDERS: Visit Provider Anesthesiology
DX: G90.522 Complex regional pain syndrome I of left lower limb (principal); E11.9 Type 2 diabetes mellitus without complications
CPT/HCPCS: 36415; 63650; 84703; 85610; C1897; J0690; J1100; J2250; J2704

== ENCOUNTER 2024-10-15 13:46 | Outpatient (OUT) | payer MEDICARE, MEDICAID, SELFPAY ==
--- OUTSIDE RECORDS SUMMARY | 2024-10-15 14:07 | XMS_ITS | CCD ---
Author Organization [facility] Care Team Providers Care [facility] Licensed Practical Nurse Name Role Phone Clyde Aguilera Attending Provider Unavailable [facility] Primary Care Provider Un available Shayy, Lars Attending Provider Unavailable Jase Rosenberg Unavailable DO Clyde Aguilera Attending Provider [facility] Primary Care Provider [phone] LUIS Elliott Emergency Provider MD Jase Rosenberg Attending Provider [phone] DO Praveen Pearl Emergency Provider MD Ayan Andrade Emergency Provider [phone] DO Clyde Aguilera Attending Provider [phone] [facility] Primary Care Provider DO Praveen Pearl Emergency Provider MD Ayan Andrade Emergency Provider [phone] DIONNE Garcia Attending Provider MD Jase Breaux Jr Emergency Provider [facility] Primary Care Provider [phone] Kenneth [facility] Caitlyn Tuttle Emergency Provider [facility] Primary Care Provider [phone] DO Arnoldo Pérez Emergency Provider DR UZAIR CARTER Admitting Unavailable TERRENCE .DR UZAIR Attending Unavailable NICO GOMEZ Consulting Unavailable [facility] Primary Care Unavaila DR ARIADNA Hardin Consulting [...] [employer]ute Consulting Unavailable CARMEN CARPIO Consulting Unavailable [facility] Primary Care Provider LUIS Sandra Emergency Provider DO Lars Guerra Emergency Provider Dr. Marcos Gregory Attending Unava MD Jase Dudley Attending Provider [phone] MD Jase Breaux Jr Emergency Provider DO Teo Heath Attending Provider ParentDO Marquise ramsey Other Provider [facility] Primary Care Provider LUIS Sandra Emergency Provider DO John Luu Referring Provider [phone] [facility] Primary Care Provider DO Teo Heath Attending Provider Parentroxy, DO [place] Other Provider DO John Luu Referring Provider DO John Luu Referring Provider [facility] Primary Care Provider DO Teo Heath Attending Provider Self, Referral Attending Provider Unavailable [facility] Primary Care Provider [phone] DO John Luu Attending Provider [phone] Zack SKINNER, Alfie Ch Attending Unavailable Zack SKINNER, Alfie hC Attending Unavailable Zack SKINNER, Alfie Ch Attending Unavailable [facility] Primary Care Provider [phone] DO Jovan Hutson Emergency Provider LUIS Sin Emergency Provider LUIS Saravia Emergency Provider Ning Saravia Admitting Unavailable Ning Saravia Attending Unavailable [facility] Primary Care Unavaila ble Joavn Hutson Admitting Unavailable Jovan Hutson Attending Unavailable [facility] Primary Care Unavaila Teo Pal Admitting Unavailable Teo Heath Attending Unavailable John Luu Referring Unavailable [facility] Primary Care Unavaila ble Teo Heath Admitting Unavailable Teo Heath Attending Unavailable John Luu Referring Unavailable [facility] Primary Care Unavaila ble Self, Referral Admitting Unavailable Self, Referral Attending Unavailable [facility] Primary Care Unavaila John Hernandez Admitting Unavailable John Luu Attending Unavailable [facility] Primary Care Unavaila ble Agustin Sandra Admitting Unavailable Agustin Sandra Attending Unavailable [facility] Primary Care Unavaila DO Teo Pal Attending Provider DO John Luu Referring Provider [phone] Unavailable Unavailable Unavailable Allergies Allergy Classification Reported Allergen(s) Allergy Type Date of Onset Reaction(s) Facility (20 sources) cyclobenzaprine ; Translations: [cyclobenzaprin e] Drug Allergy 2 Swelling of Lip/Tongue/Thro at [facility] (20 sources) Naproxen; Translations: [naproxen] Drug Allergy 2 Hives, Unknown [facility] (20 sources) Ondansetron; Translations: [ondansetron] Drug Allergy 2 Swelling of Lip/Tongue/Thro at [facility] (20 sources) Scallop - dietary; Translations: [scallops] Allergy to substance 2 hives [facility] (5 sources) cyclobenzaprine ; Translations: [Flexeril] Drug Allergy 7 Unknown [facility] (5 sources) Ondansetron; Translations: [Zofran] Drug Allergy 7 Unknown [facility] (2 sources) Naproxen Drug Allergy 7 [facility] (2 sources) Misc-Food; Translations: [Misc-Food] Food allergy (disorder) 7 [facility] Medications Current Medications Medication Drug Class(es) [...] by mouth three times daily Hydrocodone-Aceta minophen ([place]) 5-325 mg tablet Discontinued 1 TAB PO [...] mg/ml oral solution (14 sources) Phenothiazine, Uncompetitive K-uftubq-T-aspartate Receptor Antagonist, Sigma-1 Agonist Start: 01-08-2023 End: [...] 1:00am April 18, 2023 12:08pm Prenat 115-Iron Oku-Ibfgz-Hwk ( 19 (With Docusate)) 29 mg iron- 1 mg-25 mg tablet (18 sources) Start: 04-21-2018 End: 04-22-2019 take 1 tablet by mouth once daily Prenat 115-Iron Sjd-Gnxgd-Ajn ( 19 (With Docusate)) 29 mg iron- 1 mg-25 mg tablet Discontinued 1 TAB PO Daily April 20, 2018 11:00pm April 22, 2019 9:17am Start: 04-21-2018 End: 04-22-2019 take 1 tablet by mouth once daily Prenat 115-Iron Czf-Tbcwk-Kks ( 19 (With Docusate)) 29 mg iron- [...] Cyanocobalamin (Vitamin B-12 ) Discontinued [address] December 26, 2020 1:00am April 18, 2023 [...] 09-07-2024 Glucose [Mass/Vol] 123 mg/dL Normal [facility] Comment on above: Order Comment: Reaso n for Exam Obesity due to excess calories with serious comorbidity, uns Result Comment: PERF ORMED BY: [place] [address] PATHOLOGIST RESIDENT INSPECTOR MARTY SALGADO M.D. Performed By: #### L IPID, CBC, TSH3 wRFLX, CMP, URMACRERAT, A1C WT eA #### [facility] [address] [place] [address] A1C with Estimated Average G luOrdered By: John Luu on 09-07-2024 HbA1c (Bld) [Mass fraction] 5.9 % High 4.3-5.6 [facility] Comment on above: Order Comment: Reaso n for Exam Obesity due to excess calories with serious comorbidity, uns Result Comment: Incr eased risk for diabetes: 5.7 - 6.4 diabetes: >6.4 glycemic control for adults with diabetes: <7.0 Performed By: #### L IPID, CBC, TSH3 wRFLX, CMP, URMACRERAT, A1C WTH eA #### [facility] [address] [place] [address] [place] Increased risk for d iabetes: 5.7 - 6.4diabetes: >6.4glycemic control for adults with diabetes: <7.0 Albumin [Mass/volume] in Ser um or Plasma by Bromocresol green (BCG) dye binding methoOrdered By: John Luu on 09-07-2024 Albumin BCG dye [Mass/Vol] 3.8 g/dL 3.5-5.7 [facility] Cholesterol in LDL Calc [Mas s/Vol]Ordered By: John Luu on 09-07-2024 Cholesterol in LDL [Mass/Vol] 113 mg/dL High 0-100 [facility] Comment on above: LDL ATP III CLASSIFI CATIONLDL less than 100 mg/dL OptimalLDL 100-129 mg/dL Near or above optimalLDL 130-159 mg/dL Borderline highLDL 160-189 mg/dL HighLDL greater than 189 mg/dL Very high Cholesterol in VLDL Calc [Ma ss/Vol]Ordered By: John Luu on 09-07-2024 Cholesterol in VLDL [Mass/Vol] 15 mg/dL [facility] Complete Blood Count Auto Di ffOrdered By: John Luu on 09-07-2024 Basophils (Bld) [#/Vol] 0.0 10*3/uL Normal 0.0-0.2 [facility] Comment on above: Order Comment: Reaso n for Exam Obesity due to excess calories with serious comorbidity, uns Result Comment: PERF ORMED BY: [place] [address] PATHOLOGIST RESIDENT INSPECTOR MARTY SALGADO M.D. Performed By: #### L IPID, CBC, TSH3 wRFLX, CMP, URMACRERAT, A1C WT eA #### [facility] [address] [place] [address] [place] Basophils/100 WBC (Bld) 0.6 % Normal . [facility] Comment on above: Order Comment: Reaso n for Exam Obesity due to excess calories with serious comorbidity, uns Performed By: #### L IPID, CBC, TSH3 wRFLX, CMP, URMACRERAT, A1C WT eA #### [facility] [address] [place] [address] [place] Eosinophils (Bld) [#/Vol] 0.3 10*3/uL Normal 0.0-0.45 [facility] Comment on above: Order Comment: Reaso n for Exam Obesity due to excess calories with serious comorbidity, uns Performed By: #### L IPID, CBC, TSH3 wRFLX, CMP, URMACRERAT, A1C WTH eA #### [facility] [address] [place] [address] [place] Eosinophils/100 WBC (Bld) 3.6 % Normal . [facility] Comment on above: Order Comment: Reaso n for Exam Obesity due to excess calories with serious comorbidity, uns Performed By: #### L IPID, CBC, TSH3 wRFLX, CMP, URMACRERAT, A1C WTH eA #### [address] Erythrocyte distribution width (RBC) [Ratio] 15.0 % Normal 11.9-15.3 [facility] Comment on above: Order Comment: Reaso n for Exam Obesity due to excess calories with serious comorbidity, uns Performed By: #### L IPID, CBC, TSH3 wRFLX, CMP, URMACRERAT, A1C WTH eA #### [address] Hematocrit (Bld) [Volume fraction] 38.5 % Normal 34.0-46.4 [facility] Comment on above: Order Comment: Reaso n for Exam Obesity due to excess calories with serious comorbidity, uns Performed By: #### L IPID, CBC, TSH3 wRFLX, CMP, URMACRERAT, A1C WTH eA #### [place] [address] [place] Hemoglobin (Bld) [Mass/Vol] 12.5 g/dL Normal 11.8-15.4 [facility] Comment on above: Order Comment: Reaso n for Exam Obesity due to excess calories with serious comorbidity, uns Performed By: #### L IPID, CBC, TSH3 wRFLX, CMP, URMACRERAT, A1C WTH eA #### [place] [address] [place] Lymphocytes (Bld) [#/Vol] 2.7 10*3/uL Normal 1.00-4.8 [facility] Comment on above: Order Comment: Reaso n for Exam Obesity due to excess calories with serious comorbidity, uns Performed By: #### L IPID, CBC, TSH3 wRFLX, CMP, URMACRERAT, A1C WTH eA #### [facility] [address] [place] [address] [place] Lymphocytes/100 WBC (Bld) 35.0 % Normal . [facility] Comment on above: Order Comment: Reaso n for Exam Obesity due to excess calories with serious comorbidity, uns Performed By: #### L IPID, CBC, TSH3 wRFLX, CMP, URMACRERAT, A1C WTH eA #### [facility] [address] [place] [address] [place] MCH (RBC) [Entitic mass] 24.5 pg Low 24.7-34.3 [facility] Comment on above: Order Comment: Reaso n for Exam Obesity due to excess calories with serious comorbidity, uns Performed By: #### L IPID, CBC, TSH3 wRFLX, CMP, URMACRERAT, A1C WTH eA #### [place] [address] [place] MCV (RBC) [Entitic vol] 75.7 fL Low 80-100 [facility] Comment on above: Order Comment: Reaso n for Exam Obesity due to excess calories with serious comorbidity, uns Performed By: #### L IPID, CBC, TSH3 wRFLX, CMP, URMACRERAT, A1C WTH eA #### [facility] [address] [place] [address] [place] Monocytes (Bld) [#/Vol] 0.4 10*3/uL Normal 0.0-0.8 [facility] Comment on above: Order Comment: Reaso n for Exam Obesity due to excess calories with serious comorbidity, uns Performed By: #### L IPID, CBC, TSH3 wRFLX, CMP, URMACRERAT, A1C WTH eA #### [facility] [address] [place] [address] [place] Monocytes/100 WBC (Bld) 4.6 % Normal . [facility] Comment on above: Order Comment: Reaso n for Exam Obesity due to excess calories with serious comorbidity, uns Performed By: #### L IPID, CBC, TSH3 wRFLX, CMP, URMACRERAT, A1C WTH eA #### [facility] [address] [place] [address] [place] Neutrophils (Bld) [#/Vol] 4.3 10*3/uL Normal 1.8-7.7 [facility] Comment on above: Order Comment: Reaso n for Exam Obesity due to excess calories with serious comorbidity, uns Performed By: #### L IPID, CBC, TSH3 wRFLX, CMP, URMACRERAT, A1C WTH eA #### [facility] [address] [place] [id number] [place] Neutrophils/100 WBC (Bld) 56.2 % Normal . [facility] Comment on above: Order Comment: Reaso n for Exam Obesity due to excess calories with serious comorbidity, uns Performed By: #### L IPID, CBC, TSH3 wRFLX, CMP, URMACRERAT, A1C WTH eA #### [facility] [address] [place] [id number] [place] Platelet mean volume (Bld) [Entitic vol] 7.4 fL Normal 6.3-10.7 [facility] Comment on above: Order Comment: Reaso n for Exam Obesity due to excess calories with serious comorbidity, uns Performed By: #### L IPID, CBC, TSH3 wRFLX, CMP, URMACRERAT, A1C WTH eA #### [facility] [address] [place] [address] [place] Platelets (Bld) [#/Vol] 324 10*3/uL Normal 150-450 [facility] Comment on above: Order Comment: Reaso n for Exam Obesity due to excess calories with serious comorbidity, uns Performed By: #### L IPID, CBC, TSH3 wRFLX, CMP, URMACRERAT, A1C WTH eA #### [facility] [address] [place] [address] [place] RBC (Bld) [#/Vol] 5.08 10*6/uL High 3.60-5.00 [facility] Comment on above: Order Comment: Reaso n for Exam Obesity due to excess calories with serious comorbidity, uns Performed By: #### L IPID, CBC, TSH3 wRFLX, CMP, URMACRERAT, A1C WTH eA #### [facility] [address] WBC (Bld) [#/Vol] 7.7 10*3/uL Normal 3.8-11.6 [facility] Comment on above: Order Comment: Reaso n for Exam Obesity due to excess calories with serious comorbidity, uns Performed By: #### L IPID, CBC, TSH3 wRFLX, CMP, URMACRERAT, A1C WTH eA #### [facility] [address] Complete Blood Count Auto Di ffon 09-07-2024 Mean Corpuscular HGB Conc 32.4 g/dL Normal 32.0-35.0 [facility] Comment on above: Order Comment: Reaso n for Exam Obesity due to excess calories with serious comorbidity, uns Performed By: #### L IPID, CBC, TSH3 wRFLX, CMP, URMACRERAT, A1C WTH eA #### [facility] [address] [place] [address] NRBC% 0.1 /100{WBC} Normal 0-0.5 [facility] Comment on above: Order Comment: Reaso n for Exam Obesity due to excess calories with serious comorbidity, uns Performed By: #### L IPID, CBC, TSH3 wRFLX, CMP, URMACRERAT, A1C WTH eA #### [facility] [address] Comprehensive Metabolic Pane susan 09-07-2024 Albumin [Mass/Vol] 3.8 g/dL Normal 3.5-5.7 [facility] Comment on above: Order Comment: Reaso n for Exam Obesity due to excess calories with serious comorbidity, uns Performed By: #### L IPID, CBC, TSH3 wRFLX, CMP, URMACRERAT, A1C WTH eA #### [facility] [address] GFR/1.73 sq M.predicted MDRD (S/P/Bld) [Vol rate/Area] mL/min/{1.73_m2} Normal [facility] Comment on above: Order Comment: Reaso n for Exam Obesity due to excess calories with serious comorbidity, uns Performed By: #### L IPID, CBC, TSH3 wRFLX, CMP, URMACRERAT, A1C WTH eA #### [facility] [address] [place] [address] Comprehensive Metabolic Pane lOrdered By: John Luu on 09-07-2024 Albumin/Globulin [Mass ratio] 1.3 {ratio} Normal [facility] Comment on above: Order Comment: Reaso n for Exam Obesity due to excess calories with serious comorbidity, uns Performed By: #### L IPID, CBC, TSH3 wRFLX, CMP, URMACRERAT, A1C WTH eA #### [address] ALP [Catalytic activity/Vol] 102 U/L Normal 34-104 [facility] Comment on above: Order Comment: Reaso n for Exam Obesity due to excess calories with serious comorbidity, uns Performed By: #### L IPID, CBC, TSH3 wRFLX, CMP, URMACRERAT, A1C WTH eA #### [address] ALT [Catalytic activity/Vol] 17 U/L Normal 7-52 [facility] Comment on above: Order Comment: Reaso n for Exam Obesity due to excess calories with serious comorbidity, uns Performed By: #### L IPID, CBC, TSH3 wRFLX, CMP, URMACRERAT, A1C WTH eA #### [facility] [address] [place] [address] Anion gap [Moles/Vol] 10.2 mmol/L Normal 6.0-15.0 [facility] Comment on above: Order Comment: Reaso n for Exam Obesity due to excess calories with serious comorbidity, uns Performed By: #### L IPID, CBC, TSH3 wRFLX, CMP, URMACRERAT, A1C WTH eA #### [facility] [address] [place] [id number] [place] AST [Catalytic activity/Vol] 13 U/L Normal 13-39 [facility] Comment on above: Order Comment: Reaso n for Exam Obesity due to excess calories with serious comorbidity, uns Performed By: #### L IPID, CBC, TSH3 wRFLX, CMP, URMACRERAT, A1C WTH eA #### [facility] [address] [place] [id number] [place] Bilirubin [Mass/Vol] 0.4 mg/dL Normal 0.3-1.0 [facility] Comment on above: Order Comment: Reaso n for Exam Obesity due to excess calories with serious comorbidity, uns Performed By: #### L IPID, CBC, TSH3 wRFLX, CMP, URMACRERAT, A1C WTH eA #### [facility] [address] [place] [address] [place] Calcium [Mass/Vol] 8.8 mg/dL Normal 8.6-10.3 [facility] Comment on above: Order Comment: Reaso n for Exam Obesity due to excess calories with serious comorbidity, uns Performed By: #### L IPID, CBC, TSH3 wRFLX, CMP, URMACRERAT, A1C WTH eA #### [facility] [address] [place] [id number] [place] Chloride [Moles/Vol] 107 mmol/L Normal 98-107 [facility] Comment on above: Order Comment: Reaso n for Exam Obesity due to excess calories with serious comorbidity, uns Performed By: #### L IPID, CBC, TSH3 wRFLX, CMP, URMACRERAT, A1C WTH eA #### [facility] [address] [place] [id number] [place] CO2 [Moles/Vol] 28.8 mmol/L Normal 21.0-31.0 [facility] Comment on above: Order Comment: Reaso n for Exam Obesity due to excess calories with serious comorbidity, uns Performed By: #### L IPID, CBC, TSH3 wRFLX, CMP, URMACRERAT, A1C WTH eA #### [facility] [address] Creatinine [Mass/Vol] 0.77 mg/dL Normal 0.60-1.20 [facility] Comment on above: Order Comment: Reaso n for Exam Obesity due to excess calories with serious comorbidity, uns Performed By: #### L IPID, CBC, TSH3 wRFLX, CMP, URMACRERAT, A1C WTH eA #### [facility] [address] Globulin (S) [Mass/Vol] 2.9 g/dL Normal [facility] Comment on above: Order Comment: Reaso n for Exam Obesity due to excess calories with serious comorbidity, uns Performed By: #### L IPID, CBC, TSH3 wRFLX, CMP, URMACRERAT, A1C WTH eA #### [address] Glucose [Mass/Vol] 89 mg/dL Normal 70-100 [facility] Comment on above: Order Comment: Reaso n for Exam Obesity due to excess calories with serious comorbidity, uns Result Comment: [place] om Glucose Reference Range is dependent on time and content of last meal. Glucose of more than 200 mg/dL in a nonstressed, ambulatory subject supports the diagnosis of Diabetes Mellitus. ADA recommended reference range Performed By: #### L IPID, CBC, TSH3 wRFLX, CMP, URMACRERAT, A1C WTH eA #### [facility] [address] [place] [address] ADA recommended refe rence rangeRandom Glucose Reference Range is dependent on time and content of last meal. Glucose of more than 200 mg/dL in a nonstressed, ambulatory subject supports the diagnosis of Diabetes Mellitus. Potassium [Moles/Vol] 4.0 mmol/L Normal 3.5-5.1 [facility] Comment on above: Order Comment: Reaso n for Exam Obesity due to excess calories with serious comorbidity, uns Performed By: #### L IPID, CBC, TSH3 wRFLX, CMP, URMACRERAT, A1C WTH eA #### [facility] [address] [place] [address] [place] Protein [Mass/Vol] 6.7 g/dL Normal 6.4-8.9 [facility] Comment on above: Order Comment: Reaso n for Exam Obesity due to excess calories with serious comorbidity, uns Performed By: #### L IPID, CBC, TSH3 wRFLX, CMP, URMACRERAT, A1C WTH eA #### [facility] [address] [place] [address] [place] Sodium [Moles/Vol] 142 mmol/L Normal 136-145 [facility] Comment on above: Order Comment: Reaso n for Exam Obesity due to excess calories with serious comorbidity, uns Performed By: #### L IPID, CBC, TSH3 wRFLX, CMP, URMACRERAT, A1C WTH eA #### [facility] [address] [place] [id number] [place] Urea nitrogen [Mass/Vol] 11 mg/dL Normal 7-25 [facility] Comment on above: Order Comment: Reaso n for Exam Obesity due to excess calories with serious comorbidity, uns Performed By: #### L IPID, CBC, TSH3 wRFLX, CMP, URMACRERAT, A1C WTH eA #### [facility] [address] [place] [address] [place] Creatinine [Mass/volume] in UrineOrdered By: John Luu on 09-07-2024 Creatinine (U) [Mass/Vol] 167.00 mg/dL [facility] Comment on above: No reference range e stablished Glucose mean value [Mass/vol ume] in Blood Estimated from glycated hemoglobinOrdered By: John Luu on 09-07-2024 Average glucose Estimated from glycated hemoglobin (Bld) [Mass/Vol] 123 mg/dL [facility] Leukocytes [#/volume] correc abdias for nucleated erythrocytes in Blood by Automated counOrdered By: John Luu on 09-07-2024 WBC corrected for nucl RBC Auto (Bld) [#/Vol] 7.7 10*3/uL 3.8-11.6 [facility] Lipid PanelOrdered By: Volodymyr Luu on 09-07-2024 Cholesterol [Mass/Vol] 166 mg/dL Normal 140-200 [facility] Comment on above: Order Comment: Deb n for Exam Obesity due to excess calories with serious comorbidity, uns Result Comment: Chol less than 200 mg/dl low risk Chol 201-239 mg/dl borderline risk Chol 240 mg/dl and greater high risk Performed By: #### L IPID, CBC, TSH3 wRFLX, CMP, URMACRERAT, A1C WTH eA #### [facility] [address] [place] [id number] [facility] Chol less than 200 m g/dl low riskChol 201-239 mg/dl borderline riskChol 240 mg/dl and greater high risk Cholesterol in HDL [Mass/Vol] 37 mg/dL Normal 23-92 [facility] Comment on above: Order Comment: Deb n for Exam Obesity due to excess calories with serious comorbidity, uns Result Comment: HDL CHOL ATP-III CLASSIFICATION Cardiovascular Risk HDL > or equal to 60 mg/dL LOW HDL < 40 mg/dL HIGH Performed By: #### L IPID, CBC, TSH3 wRFLX, CMP, URMACRERAT, A1C WTH eA #### [facility] [address] [place] [id number] [facility] HDL CHOL ATP-III CLA SSIFICATION Cardiovascular RiskHDL > or equal to 60 mg/dL LOWHDL < 40 mg/dL HIGH Cholesterol.total/Chol esterol in HDL [Mass ratio] 4.5 {ratio} Normal <5.0 [facility] Comment on above: Order Comment: Deb n for Exam Obesity due to excess calories with serious comorbidity, uns Performed By: #### L IPID, CBC, TSH3 wRFLX, CMP, URMACRERAT, A1C WTH eA #### [facility] [address] [place] [id number] [facility] Lipid Panelon 09-07-2024 LDL Cholesterol,Calculated 113 mg/dL High 0-100 [facility] Comment on above: Order [...] wRFLX, CMP, URMACRERAT, A1C WTH eA #### [facility] [address] Triglyceride w/Reflex 78 mg/dL Normal 0-149 [facility] Comment on above: Order [...] wRFLX, CMP, URMACRERAT, A1C WTH eA #### [facility] [address] VLDL CHOLESTEROL 15 mg/dL Normal [facility] Comment on above: Order Comment: Reaso n for Exam Obesity due to excess calories with serious comorbidity, uns Performed By: #### L IPID, CBC, TSH3 wRFLX, CMP, URMACRERAT, A1C WTH eA #### [facility] [address] MCHC Auto (RBC) [Mass/Vol]Or dered By: John Luu on 09-07-2024 MCHC (RBC) [Mass/Vol] 32.4 g/dL 32.0-35.0 [facility] MicroAlb Creat Ratio,UOrdere d By: John Luu on 09-07-2024 Albumin DL <= 20 mg/L (U) [Mass/Vol] 0.9 mg/dL Normal 0.0-1.8 [facility] Comment on above: Order Comment: Reaso n for Exam Obesity due to excess calories with serious comorbidity, uns Performed By: #### L IPID, CBC, TSH3 wRFLX, CMP, URMACRERAT, A1C WTH eA #### [facility] [address] [place] [address] [place] MicroAlb Creat Ratio,Uon Creatinine, Urine (Random) 167.00 mg/dL Normal [facility] Comment on above: Order Comment: Reaso n for Exam Obesity due to excess calories with serious comorbidity, uns Result Comment: No r eference range established Performed By: #### L IPID, CBC, TSH3 wRFLX, CMP, URMACRERAT, A1C WTH eA #### [facility] [address] Microalbumin/Creatinin e Ratio 5.4 mg/g Normal 0.0-30.0 [facility] Comment on above: Order Comment: Reaso n for Exam Obesity due to excess calories with serious comorbidity, uns Result Comment: 30-3 00 mg/g indicates an increased risk for diabetic nephropathy. Greater than 300 mg/g is consistent with clinical nephropathy. (Am. J. Kidney Disease 1995, 25:107) PERFORMED BY: [address] [place] [address] PATHOLOGIST RESIDENT INSPECTOR MARTY SALGADO M.D. Performed By: #### L IPID, CBC, TSH3 wRFLX, CMP, URMACRERAT, A1C WT eA #### [facility] [address] No Panel InformationOrdered By: John Luu on 09-07-2024 Estimated GFR (CKD-EPI) > 60.0 mL/Min [facility] Creatinine Clearance (Chem N/A [facility] Nucleated erythrocytes [Pres ence] in Blood by Automated countOrdered By: John Luu on 09-07-2024 Nucleated RBC Auto Ql (Bld) 0.1 /100{WBC} 0-0.5 [facility] Thyroid Stim Hormone w/Rflxo n 09-07-2024 Thyroid Stim Hormone w/Rflx 0.94 u[iU]/mL Normal 0.45-5.33 [facility] Comment on above: Order Comment: Reaso n for Exam Obesity due to excess calories with serious comorbidity, uns Result Comment: PERF ORMED BY: [place] [id number] PATHOLOGIST RESIDENT INSPECTOR MARTY SALGADO M.D. Performed By: #### L IPID, CBC, TSH3 wRFLX, CMP, URMACRERAT, A1C [facility] eA ####[facility] [id number] Thyrotropin [Units/volume] i n Serum or PlasmaOrdered By: John Luu on 09-07-2024 TSH Qn 0.94 m[IU]/L 0.45-5.33 [facility] Triglyceride [Mass/volume] i n Serum or PlasmaOrdered By: John Luu on 09-07-2024 Triglyceride [Mass/Vol] 78 mg/dL 0-149 [facility] Comment on above: TRIG ATP III CLASSIF ICATIONTRIG less than 150 mg/dL NormalTRIG 150-199 mg/dL Borderline highTRIG 200-500 mg/dL High TRIG greater than 500 mg/dL Very highStandard traceable to the Center for Disease Conrtrol and Prevention (CDC) test method. Urine microalbumin/creatinin e mass ratioOrdered By: John Luu on 09-07-2024 Albumin/Creatinine DL <= 20 mg/L (U) [Mass ratio] 5.4 mg/g 0.0-30.0 [facility] Comment on above: 30-300 mg/g indicate s an increased risk for diabetic nephropathy. Greater than 300 mg/g is consistent with clinical nephropathy. (Am. J. Kidney Disease 1995, 25:107) XR foot RT min 3V*on 024 XR foot RT min 3V* [facility] [address] [place] [address] [place] [address] XRay Report Signed Patient: Loy Tam MR#: [id number] : 1980 Acct:[id number] Age/Sex: 43 / F ADM Date: 08/07/24 Loc: ER Room: Type: [facility] ER Attending Dr: Copies to: Agustin [...] Sarah Mistry M.D.08/07/2024 11:28 AM Dictation Location: [place] [address] Transcribed By: [facility] 08/07/24 112 Dictated By: Sarah Mistry MD 08/07/241125 Signed By: 08/07/24 112 Normal [facility] Activated partial thrombopla stin time (aPTT) in platelet poor plasma by coagulation aOrdered By: Jovan Hutson on 07-10-2024 aPTT Coag (PPP) [Time] 33.6 s 25.1-36.5 [facility] Comment on above: A hematocrit value g reater than 55% may lead to inaccurate results in coagulation testing. Patients having hematocrit values >55% require a special collection tube for coagulation studies. Please contact the laboratory at [phone] for redraw instructions. Alanine aminotransferase [En zymatic activity/volume] in Serum or PlasmaOrdered By: Jovan Hutson on 07-10-2024 ALT [Catalytic activity/Vol] 34 U/L Normal 7-52 [facility] Comment on above: Performed By: #### L IPASE, CBC, BMP, PT, PTT, HEPATIC ####[facility] [id number] [place] [id number] [facility] Albumin [Mass/volume] in Ser um or Plasma by Bromocresol green (BCG) dye binding methoOrdered By: Jovan Hutson on 07-10-2024 Albumin BCG dye [Mass/Vol] 4.2 g/dL 3.5-5.7 [facility] Alkaline phosphatase [Enzyma tic activity/volume] in Serum or PlasmaOrdered By: Jovan Hutson on 07-10-2024 ALP [Catalytic activity/Vol] 106 U/L High 34-104 [facility] Comment on above: Performed By: #### L IPASE, CBC, BMP, PT, PTT, HEPATIC ####[address] Aspartate aminotransferase [ Enzymatic activity/volume] in Serum or PlasmaOrdered By: Jovan Hutson on 07-10-2024 AST [Catalytic activity/Vol] 18 U/L Normal 13-39 [facility] Comment on above: Performed By: #### L IPASE, CBC, BMP, PT, PTT, HEPATIC ####[place] [id number] [facility] Automated basophil %Ordered By: Jovan Hutson on 07-10-2024 Basophils/100 WBC (Bld) 0.8 % Normal . [facility] Comment on above: Performed By: #### L IPASE, CBC, BMP, PT, PTT, HEPATIC ####[address] Automated basophil countOrde red By: Jovan Hutson on 07-10-2024 Basophils (Bld) [#/Vol] 0.1 10*3/uL Normal 0.0-0.2 [facility] Comment on above: Result Comment: PERF ORMED BY: [facility] [address] [place] [address] PATHOLOGIST RESIDENT INSPECTOR MARTY SALGADO M.D. Performed By: #### L IPASE, CBC, BMP, PT, PTT, HEPATIC ####[place] [id number] [facility] Automated blood monocyte cou ntOrdered By: Jovan Hutson on 07-10-2024 Monocytes (Bld) [#/Vol] 0.5 10*3/uL Normal 0.0-0.8 [facility] Comment on above: Performed By: #### L IPASE, CBC, BMP, PT, PTT, HEPATIC ####[address] Automated eosinophil %Ordere d By: Jovan Hutson on 07-10-2024 Eosinophils/100 WBC (Bld) 4.5 % Normal . [facility] Comment on above: Performed By: #### L IPASE, CBC, BMP, PT, PTT, HEPATIC ####[address] Automated eosinophil countOr dered By: Jovan Hutson on 07-10-2024 Eosinophils (Bld) [#/Vol] 0.4 10*3/uL Normal 0.0-0.45 [facility] Comment on above: Performed By: #### L IPASE, CBC, BMP, PT, PTT, HEPATIC ####[address] Automated monocyte %Ordered By: Jovan Hutson on 07-10-2024 Monocytes/100 WBC (Bld) 6.1 % Normal . [facility] Comment on above: Performed By: #### L IPASE, CBC, BMP, PT, PTT, HEPATIC ####[address] Automated neutrophil %Ordere d By: Jovan Hutson on 07-10-2024 Neutrophils/100 WBC (Bld) 62.1 % Normal . [facility] Comment on above: Performed By: #### L IPASE, CBC, BMP, PT, PTT, HEPATIC ####[address] Bacteria [Presence] in Urine by AutomatedOrdered By: Jovan Hutson on 07-10-2024 Bacteria Auto Ql (U) None seen [HPF] None Seen [facility] Basic Metabolic Panelon 06-28 Creatinine Clr Calc Pharmacy 115.15 Normal [facility] Comment on above: Performed By: #### L IPASE, CBC, BMP, PT, PTT, HEPATIC ####[address] GFR/1.73 sq M.predicted MDRD (S/P/Bld) [Vol rate/Area] mL/min/{1.73_m2} Normal [facility] Comment on above: Performed By: #### L IPASE, CBC, BMP, PT, PTT, HEPATIC ####[place] [address] [place] Bilirubin Test strip Ql (U)O rdered By: Jovan Hutson on 07-10-2024 Bilirubin Ql (U) Negative Negative [facility] Bilirubin.direct [Mass/volum e] in Serum or PlasmaOrdered By: Jovan Hutson on 07-10-2024 Bilirubin.direct [Mass/Vol] 0.10 mg/dL 0.03-0.18 [facility] Bilirubin.total [Mass/volume ] in Serum or PlasmaOrdered By: Jovan Hutson on 07-10-2024 Bilirubin [Mass/Vol] 0.4 mg/dL Normal 0.3-1.0 [facility] Comment on above: Performed By: #### L IPASE, CBC, BMP, PT, PTT, HEPATIC ####[facility] [id number] abdomen pelvis w conon CT abdomen pelvis w con [facility] [address] [place] [address] [place] [address] CT Scan Report Signed Patient: Loy Tam MR#: [id number] : 1980 Acct:[id number] Age/Sex: 43 / F ADM Date: 07/10/24 Loc: ER Room: Type: [facility] ER Attending Dr: Copies to: Jovan [...] Sarah Mistry M.D.07/10/2024 8:49 PM Dictation Location: [place] [address] Transcribed By: [facility] 07/10/242048 Dictated By: Sarah Mistry MD 07/10/242043 Signed By: 07/10/242048 Normal [facility] Calcium [Mass/volume] in Ser um or PlasmaOrdered By: Jovan Hutson on 07-10-2024 Calcium [Mass/Vol] 9.5 mg/dL Normal 8.6-10.3 [facility] Comment on above: Performed By: #### L IPASE, CBC, BMP, PT, PTT, HEPATIC ####[facility] [id number] [place] [id number] [facility] Carbon dioxide, total [Moles /volume] in Serum or PlasmaOrdered By: Jovan Hutson on 07-10-2024 CO2 [Moles/Vol] 29.7 mmol/L Normal 21.0-31.0 [facility] Comment on above: Performed By: #### L IPASE, CBC, BMP, PT, PTT, HEPATIC ####[facility] Chloride [Moles/volume] in S brian or PlasmaOrdered By: Jovan Hutson on 07-10-2024 Chloride [Moles/Vol] 105 mmol/L Normal 98-107 [facility] Comment on above: Performed By: #### L IPASE, CBC, BMP, PT, PTT, HEPATIC ####[place] [address] [address] Color of Urine by AutoOrdere d By: Jovan Hutson on 07-10-2024 Color (U) Light-yellow Normal Yellow [facility] Comment on above: Order Comment: Name Collection Type:: Clean-Voided Midstream Performed By: #### A DDONUAPLUS #### [facility] [address] Complete Blood Count Auto Di ffon 07-10-2024 Mean Corpuscular HGB Conc 32.1 g/dL Normal 32.0-35.0 [facility] Comment on above: Performed By: #### L IPASE, CBC, BMP, PT, PTT, HEPATIC ####[place] [address] [address] Monocytes/100 WBC (Bld) 20.46 % High 0.00-20.00 [facility] Comment on above: Result Comment: For adults in ED, MDW > 20.0 may be associated with a higher risk of sepsis during the first 12 hrs of hospital admission Performed By: #### L IPASE, CBC, BMP, PT, PTT, HEPATIC ####[place] [address] [address] NRBC% 0.1 /100{WBC} Normal 0-0.5 [facility] Comment on above: Performed By: #### L IPASE, CBC, BMP, PT, PTT, HEPATIC ####[place] [address] [address] Creatinine [Mass/volume] in Serum or PlasmaOrdered By: Jovan Hutson on 07-10-2024 Creatinine [Mass/Vol] 0.83 mg/dL Normal 0.60-1.20 [facility] Comment on above: Performed By: #### L IPASE, CBC, BMP, PT, PTT, HEPATIC ####[facility] [id number] [place] [address] [place] Dipstick and Microscopicon 0 07-10-2024 Bacteria,Urine None Seen Normal None Seen [facility] Comment on above: Order Comment: Name Collection Type:: Clean-Voided Midstream Performed By: #### A DDONUAPLUS #### [place] [address] [place] Bilirubin,Urine Negative Normal Negative [facility] Comment on above: Order Comment: Name Collection Type:: Clean-Voided Midstream Performed By: #### A DDONUAPLUS #### [place] [address] [place] Glucose Ql (U) Normal Normal Normal [facility] Comment on above: Order Comment: Name Collection Type:: Clean-Voided Midstream Performed By: #### A DDONUAPLUS #### [place] [address] [place] Hyaline Casts,Urine None Normal 0-8 [facility] Comment on above: Order Comment: Name Collection Type:: Clean-Voided Midstream Performed By: #### A DDONUAPLUS #### [place] [address] [place] Mucus,Urine Rare Normal [facility] Comment on above: Order Comment: Name Collection Type:: Clean-Voided Midstream Result Comment: PERF ORMED BY: [place] [address] PATHOLOGIST RESIDENT INSPECTOR MARTY SALGADO M.D. Performed By: #### A DDONUAPLUS #### [place] [address] [place] Nitrite,Urine Negative Normal Negative [facility] Comment on above: Order Comment: Name Collection Type:: Clean-Voided Midstream Performed By: #### A DDONUAPLUS #### [place] [address] [place] Occult Blood,Urine 1+ High Negative [facility] Comment on above: Order Comment: Name Collection Type:: Clean-Voided Midstream Performed By: #### A DDONUAPLUS #### [place] [address] [place] Protein,Urine Negative Normal Negative [facility] Comment on above: Order Comment: Name Collection Type:: Clean-Voided Midstream Performed By: #### A DDONUAPLUS #### [place] [address] [place] RBC,Urine 1-2 Normal 0-4 [facility] Comment on above: Order Comment: Name Collection Type:: Clean-Voided Midstream Performed By: #### A DDONUAPLUS #### [place] [address] [place] Specificy [place],Urine > 1.050 High 1.001-1.030 [facility] Comment on above: Order Comment: Name Collection Type:: Clean-Voided Midstream Result Comment: Rech ecked by refractometer Performed By: #### A DDONUAPLUS #### [place] [address] [place] Squamous Epithelial Cell,Urine 3-4 High 0-2 [facility] Comment on above: Order Comment: Name Collection Type:: Clean-Voided Midstream Performed By: #### A DDONUAPLUS #### [place] [address] [place] Urobilinogen,Urine Normal Normal Normal [facility] Comment on above: Order Comment: Name Collection Type:: Clean-Voided Midstream Performed By: #### A DDONUAPLUS #### [place] [id number] [place] WBC,Urine 1-2 Normal 0-4 [facility] Comment on above: Order Comment: Name Collection Type:: Clean-Voided Midstream Performed By: #### A DDONUAPLUS #### [place] [id number] [place] ECG 12 lead ECGon 07-10-2024 ECG 12 lead ECG [facility] [address] [place] [address] [place] [address] Electrocardiograph Report Signed Patient: Loy Tam MR#: [id number] : 1980 Acct:[id number] Age/Sex: 43 / F ADM Date: 07/10/24 Loc: ER Room: Type: [facility] ER Attending Dr: Ordering Provider: Jovan Hutson [...] change was found Confirmed by Lee Burnette ([id number]) on 07/13/2024 1:07:36 PM Referred By: Electronically Signed By: Lee Burnette Transcribed By: MUS Signed By Lee Burnette MD 07/13/24 1307 Normal [facility] Epithelial cells.squamous [# /area] in Urine sediment by Automated countOrdered By: Jovan Hutson on 07-10-2024 Epithelial cells.squamous Auto (Urine sed) [#/Area] 3-4 [HPF] High 0-2 [facility] Erythrocyte distribution wid th [Ratio] by Automated countOrdered By: Jovan Hutson on 07-10-2024 Erythrocyte distribution width (RBC) [Ratio] 15.2 % Normal 11.9-15.3 [facility] Comment on above: Performed By: #### L IPASE, CBC, BMP, PT, PTT, HEPATIC ####[facility] [id number] [place] [address] [facility] Erythrocytes [#/area] in Uri ne sediment by Automated countOrdered By: Jovan Hutson on 07-10-2024 RBC Auto (Urine sed) [#/Area] 1-2 [HPF] 0-4 [facility] Erythrocytes [#/volume] in B lood by Automated countOrdered By: Jovan Hutson on 07-10-2024 RBC (Bld) [#/Vol] 5.73 10*6/uL High 3.60-5.00 [facility] Comment on above: Performed By: #### L IPASE, CBC, BMP, PT, PTT, HEPATIC ####[facility] [place] [address] [facility] Glucose [Mass/volume] in Ser um or PlasmaOrdered By: Jovan Hutson on 07-10-2024 Glucose [Mass/Vol] 85 mg/dL Normal 70-100 [facility] Comment on above: ADA recommended refe rence rangeRandom Glucose Reference Range is dependent on time and content of last meal. Glucose of more than 200 mg/dL in a nonstressed, ambulatory subject supports the diagnosis of Diabetes Mellitus. Result Comment: [place] om Glucose Reference Range is dependent on time and content of last meal. Glucose of more than 200 mg/dL in a nonstressed, ambulatory subject supports the diagnosis of Diabetes Mellitus. ADA recommended reference range Performed By: #### L IPASE, CBC, BMP, PT, PTT, HEPATIC ####[facility] [place] [address] [facility] Glucose [Mass/volume] in Uri ne by Test stripOrdered By: Jovan Hutson on 07-10-2024 Glucose Test strip (U) [Mass/Vol] Normal mg/dL Normal [facility] Hematocrit [Volume Fraction] of Blood by Automated countOrdered By: Jovan Hutson on 07-10-2024 Hematocrit (Bld) [Volume fraction] 43.3 % Normal 34.0-46.4 [facility] Comment on above: Performed By: #### L IPASE, CBC, BMP, PT, PTT, HEPATIC ####[place] [address] [place] [address] [facility] Hemoglobin Test strip Ql (U) Ordered By: Jovan Hutson on 07-10-2024 Hemoglobin Ql (U) 1+ High Negative [facility] Hemoglobin [Mass/volume] in BloodOrdered By: Jovan Hutson on 07-10-2024 Hemoglobin (Bld) [Mass/Vol] 13.9 g/dL Normal 11.8-15.4 [facility] Comment on above: Performed By: #### L IPASE, CBC, BMP, PT, PTT, HEPATIC ####[place] [address] [address] Hepatic Panelon 07-10-2024 Albumin [Mass/Vol] 4.2 g/dL Normal 3.5-5.7 [facility] Comment on above: Performed By: #### L IPASE, CBC, BMP, PT, PTT, HEPATIC ####[address] Bilirubin,Indirect 0.3 mg/dL Normal [facility] Comment on above: Performed By: #### L IPASE, CBC, BMP, PT, PTT, HEPATIC ####[address] Bilirubin.indirect [Mass/Vol] 0.10 mg/dL Normal 0.03-0.18 [facility] Comment on above: Performed By: #### L IPASE, CBC, BMP, PT, PTT, HEPATIC ####[address] Hyaline casts [#/area] in Ur ine sediment by Automated countOrdered By: Jovan Hutson on 07-10-2024 Hyaline casts Auto (Urine sed) [#/Area] None [LPF] 0-8 [facility] INR in Platelet poor plasma by Coagulation assayOrdered By: Jovan Hutson on 07-10-2024 INR Coag (PPP) [Relative time] 1.1 {INR} Normal [facility] Comment on above: INR Therapeutic Rang e [...] L IPASE, CBC, BMP, PT, PTT, HEPATIC ####[facility] [id number] [place] [address] [place] Ketones [Presence] in Urine by Test stripOrdered By: Jovan Hutson on 07-10-2024 Ketones Ql (U) Negative Normal Negative [facility] Comment on above: Order Comment: Name Collection Type:: Clean-Voided Midstream Performed By: #### A DDONUAPLUS #### [facility] [address] [place] [address] [place] Leukocyte esterase [Presence ] in Urine by Test stripOrdered By: Jovan Hutson on 07-10-2024 Leukocyte esterase Test strip Ql (U) Negative Normal Negative [facility] Comment on above: Order Comment: Name Collection Type:: Clean-Voided Midstream Performed By: #### A DDONUAPLUS #### [facility] [address] [place] [address] [place] Leukocytes [#/area] in Urine sediment by Automated countOrdered By: Jovan Hutson on 07-10-2024 WBC Auto (Urine sed) [#/Area] 1-2 [HPF] 0-4 [facility] Leukocytes [#/volume] correc abdias for nucleated erythrocytes in Blood by Automated counOrdered By: Jovan Hutson on 07-10-2024 WBC corrected for nucl RBC Auto (Bld) [#/Vol] 8.5 10*3/uL 3.8-11.6 [facility] Leukocytes [#/volume] in Blo od by Automated countOrdered By: Jovan Hutson on 07-10-2024 WBC (Bld) [#/Vol] 8.5 10*3/uL Normal 3.8-11.6 [facility] Comment on above: Performed By: #### L IPASE, CBC, BMP, PT, PTT, HEPATIC ####[facility] [id number] [place] [address] [place] Lipase [Enzymatic activity/v olume] in Serum or PlasmaOrdered By: Jovan Hutson on 07-10-2024 Lipase [Catalytic activity/Vol] 15.0 U/L Normal 11.0-82.0 [facility] Comment on above: Result Comment: PERF ORMED BY: [facility] [address] [place] [id number] PATHOLOGIST RESIDENT INSPECTOR MARTY SALGADO M.D. Performed By: #### L IPASE, CBC, BMP, PT, PTT, HEPATIC ####[address] Lymphocytes [#/volume] in Bl ood by Automated countOrdered By: Jovan Hutson on 07-10-2024 Lymphocytes (Bld) [#/Vol] 2.3 10*3/uL Normal 1.00-4.8 [facility] Comment on above: Performed By: #### L IPASE, CBC, BMP, PT, PTT, HEPATIC ####[address] Lymphocytes/100 leukocytes i n Blood by Automated countOrdered By: Jovan Hutson on 07-10-2024 Lymphocytes/100 WBC (Bld) 26.5 % Normal . [facility] Comment on above: Performed By: #### L IPASE, CBC, BMP, PT, PTT, HEPATIC ####[place] [id number] [facility] MCH [Entitic mass] by Automa abdias countOrdered By: Jovan Hutson on 07-10-2024 MCH (RBC) [Entitic mass] 24.3 pg Low 24.7-34.3 [facility] Comment on above: Performed By: #### L IPASE, CBC, BMP, PT, PTT, HEPATIC ####[place] [id number] [facility] MCHC Auto (RBC) [Mass/Vol]Or dered By: Jovan Hutson on 07-10-2024 MCHC (RBC) [Mass/Vol] 32.1 g/dL 32.0-35.0 [facility] MCV [Entitic volume] by Auto mated countOrdered By: Jovan Hutson on 07-10-2024 MCV (RBC) [Entitic vol] 75.5 fL Low 80-100 [facility] Comment on above: Performed By: #### L IPASE, CBC, BMP, PT, PTT, HEPATIC ####[place] [address] [address] Monocyte distribution width [Entitic volume] in Blood by AutomatedOrdered By: Jovan Hutson on 07-10-2024 Monocyte distribution width Auto (Bld) [Entitic vol] 20.46 % High 0.00-20.00 [facility] Comment on above: For adults in ED, MD W > 20.0 may be associated with a higher risk of sepsis during the first 12 hrs of hospital admission Mucus [Presence] in Urine by AutomatedOrdered By: Jovan Hutson on 07-10-2024 Mucus Auto Ql (U) Rare [LPF] [facility] Neutrophils [#/volume] in Bl ood by Automated countOrdered By: Jovan Hutson on 07-10-2024 Neutrophils (Bld) [#/Vol] 5.3 10*3/uL Normal 1.8-7.7 [facility] Comment on above: Performed By: #### L IPASE, CBC, BMP, PT, PTT, HEPATIC ####[place] [address] [place] [id number] [facility] Nitrite Test strip Ql (U)Ord ered By: Jovan Hutson on 07-10-2024 Nitrite Ql (U) Negative Negative [facility] No Panel InformationOrdered By: Jovan Hutson on 07-10-2024 Estimated GFR (CKD-EPI) > 60.0 mL/Min [facility] Creatinine Clearance (Chem 115.15 [facility] Nucleated erythrocytes [Pres ence] in Blood by Automated countOrdered By: Jovan Hutson on 07-10-2024 Nucleated RBC Auto Ql (Bld) 0.1 /100{WBC} 0-0.5 [facility] Partial Thromboplastin Timeo n 07-10-2024 aPTT Coag (Bld) [Time] 33.6 s Normal 25.1-36.5 [facility] Comment on above: Result Comment: A he matocrit value greater than 55% may lead to inaccurate results in coagulation testing. Patients having hematocrit values >55% require a special collection tube for coagulation studies. Please contact the laboratory at [phone] for redraw instructions. PERFORMED BY: [facility] [place] [address] PATHOLOGIST RESIDENT INSPECTOR MARTY SALGADO M.D. Performed By: #### L IPASE, CBC, BMP, PT, PTT, HEPATIC ####[address] [place] [address] [facility] Platelet mean volume [Entiti c volume] in Blood by Automated countOrdered By: Jovan Hutson on 07-10-2024 Platelet mean volume (Bld) [Entitic vol] 7.4 fL Normal 6.3-10.7 [facility] Comment on above: Performed By: #### L IPASE, CBC, BMP, PT, PTT, HEPATIC ####[address] [address] [facility] Platelets [#/volume] in Bloo d by Automated countOrdered By: Jovan Hutson on 07-10-2024 Platelets (Bld) [#/Vol] 358 10*3/uL Normal 150-450 [facility] Comment on above: Performed By: #### L IPASE, CBC, BMP, PT, PTT, HEPATIC ####[address] [address] [facility] Potassium [Moles/volume] in Serum or PlasmaOrdered By: Jovan Hutson on 07-10-2024 Potassium [Moles/Vol] 3.7 mmol/L Normal 3.5-5.1 [facility] Comment on above: Performed By: #### L IPASE, CBC, BMP, PT, PTT, HEPATIC ####[address] [address] [facility] Protein Test strip (U) [Mass /Vol]Ordered By: Jovan Hutson on 07-10-2024 Protein (U) [Mass/Vol] Negative Negative [facility] Protein [Mass/volume] in Ser um or PlasmaOrdered By: Jovan Hutson on 07-10-2024 Protein [Mass/Vol] 7.7 g/dL Normal 6.4-8.9 [facility] Comment on above: Performed By: #### L IPASE, CBC, BMP, PT, PTT, HEPATIC ####[id number] [facility] Prothrombin time (PT)Ordered By: Jovan Hutson on 07-10-2024 PT Coag (PPP) [Time] 12.9 s Normal 9.0-12.9 [facility] Comment on above: A hematocrit value g reater than 55% may lead to inaccurate results in coagulation testing. Patients having hematocrit values >55% require a special collection tube for coagulation studies. Please contact the laboratory at [phone] for redraw instructions. Result Comment: A he matocrit value greater than 55% may lead to inaccurate results in coagulation testing. Patients having hematocrit values >55% require a special collection tube for coagulation studies. Please contact the laboratory at [phone] for redraw instructions. Performed By: #### L IPASE, CBC, BMP, PT, PTT, HEPATIC ####[address] Serum globulin measurement b y calculation (mass/volume)Ordered By: Jovan Hutson on 07-10-2024 Globulin (S) [Mass/Vol] 3.5 g/dL [facility] Comment on above: Performed By: #### L IPASE, CBC, BMP, PT, PTT, HEPATIC ####[address] [place] [id number] [facility] Serum or plasma albumin/glob ulin mass ratioOrdered By: Jovan Hutson on 07-10-2024 Albumin/Globulin [Mass ratio] 1.2 {ratio} [facility] Comment on above: Performed By: #### L IPASE, CBC, BMP, PT, PTT, HEPATIC ####[place] [id number] [facility] Serum or plasma anion gap de terminationOrdered By: Jovan Hutson on 07-10-2024 Anion gap [Moles/Vol] 11.0 mmol/L Normal 6.0-15.0 [facility] Comment on above: Performed By: #### L IPASE, CBC, BMP, PT, PTT, HEPATIC ####[address] Serum or plasma non-glucuron idated bilirubin measurement (mass/volume)Ordered By: Jovan Hutson on 07-10-2024 Bilirubin.indirect [Mass/Vol] 0.3 mg/dL [facility] Sodium [Moles/volume] in Ser um or PlasmaOrdered By: Jovan Hutson on 07-10-2024 Sodium [Moles/Vol] 142 mmol/L Normal 136-145 [facility] Comment on above: Performed By: #### L IPASE, CBC, BMP, PT, PTT, HEPATIC ####[address] Specific gravity of Urine by RefractometryOrdered By: Jovan Hutson on 07-10-2024 Specific gravity Refractometry (U) [Rel density] > 1.050 High 1.001-1.030 [facility] Comment on above: Rechecked by refract ometer Urea nitrogen [Mass/volume] in Serum or PlasmaOrdered By: Jovan Hutson on 07-10-2024 Urea nitrogen [Mass/Vol] 8 mg/dL Normal 7-25 [facility] Comment on above: Performed By: #### L IPASE, CBC, BMP, PT, PTT, HEPATIC ####[address] Urine appearanceOrdered By: Jovan Hutson on 07-10-2024 Appearance (U) Clear Normal Clear [facility] Comment on above: Order Comment: Name Collection Type:: Clean-Voided Midstream Performed By: #### A DDONUAPLUS #### [address] Urobilinogen Test strip (U) [Mass/Vol]Ordered By: Jovan Hutson on 07-10-2024 Urobilinogen (U) [Mass/Vol] Normal mg/dL Normal [facility] pH of Urine by Test stripOrd ered By: Jovan Hutson on 07-10-2024 pH (U) 6.5 [pH] Normal 5.0-9.0 [facility] Comment on above: Order Comment: Name Collection Type:: Clean-Voided Midstream Performed By: #### A DDONUAPLUS #### [address] US breast BI limitedon 03-08 US breast BI limited [facility] [address] [place] [address] [place] [address] Ultrasound Report Signed Patient: Loy Tam MR#: [id number] : 1980 Acct:[id number] Age/Sex: 43 / F ADM Date: 03/08/24 Loc: [facility] Room: Type: [facility] Attending Dr: John Luu DO, Resident Ordering [...] Alan Matta M.D.03/08/2024 3:19 PM Dictation Location: [facility] Tech: Dana Paredes Transcribed By: ILIA 03/08/24 1519 Dictated By: Alan Matta II, MD 03/08/24 1516 Signed By: 03/08/24 1519 Normal [facility] MM screening mammo BI w/CADo n 12-02-2023 MM screening mammo BI w/CAD [facility] [address] [place] [address] [place], [place] [id number] Mammography Report Signed Patient: Loy Tam MR#: [id number] : 1980 Acct:[id number] Age/Sex: 42 / F ADM Date: 12/02/23 Loc: [place] Room: Type: [facility] Attending Dr: Referral Self Copies to: [facility] [...] Sarah Mistry M.D.12/02/2023 3:31 PM Dictation Location: [facility] Transcribed By: [facility] 12/02/23 1531 Dictated By: Sarah Mistry MD 12/02/23 1523 Signed By: 12/02/23 1531 Normal [facility] FE PROon 10-07-2023 % Iron Saturation 12.3 % Low 20-50 [facility] Comment on above: Performed By: #### F E PRO, TSH3 ####[address] [address] [facility] Total Iron Binding Capacity 389 ug/dL Normal 255-450 [facility] Comment on above: Performed By: #### F E PRO, TSH3 ####[address] [address] [facility] Ferritin [Mass/volume] in Se rum or PlasmaOrdered By: Teo Heath on 10-07-2023 Ferritin [Mass/Vol] 23.1 ng/mL Normal 11.0-306.8 [facility] Comment on above: Performed By: #### F E PRO, TSH3 ####[place] [id number] [facility] Iron [Mass/volume] in Serum or PlasmaOrdered By: Teo Heath on 10-07-2023 Iron [Mass/Vol] 48 ug/dL Low 50-212 [facility] Comment on above: Performed By: #### F E PRO, TSH3 ####[place] [id number] [facility] Iron binding capacity [Mass/ volume] in Serum or PlasmaOrdered By: Teo Heath on 10-07-2023 Iron binding capacity [Mass/Vol] 389 ug/dL 255-450 [facility] Iron saturation [Mass Fracti on] in Serum or PlasmaOrdered By: Teo Heath on 10-07-2023 Iron saturation [Mass fraction] 12.3 % 20-50 [facility] Thyrotropin [Units/volume] i n Serum or PlasmaOrdered By: Teo Heath on 10-07-2023 TSH Qn 0.91 m[IU]/L Normal 0.45-5.33 [facility] Comment on above: Result Comment: PERF ORMED BY: [facility] [address] [id number] PATHOLOGIST RESIDENT INSPECTOR MARTY SALGADO M.D. Performed By: #### F Marry PRO, TSH3 ####[facility] [id number] [facility] Transferrin [Mass/volume] in Serum or PlasmaOrdered By: Teo Heath on 10-07-2023 Transferrin [Mass/Vol] 278 mg/dL Normal 203-362 [facility] Comment on above: Performed By: #### F E PRO, TSH3 ####[facility] [id number] [id number] [facility] Alanine aminotransferase [En zymatic activity/volume] in Serum or PlasmaOrdered By: Marquise Disla on 07-13-2023 ALT [Catalytic activity/Vol] 25 U/L 7-52 [facility] Albumin [Mass/volume] in Ser um or Plasma by Bromocresol green (BCG) dye binding methoOrdered By: Marquise Disla on 07-13-2023 Albumin BCG dye [Mass/Vol] 4.2 g/dL 3.5-5.7 [facility] Alkaline phosphatase [Enzyma tic activity/volume] in Serum or PlasmaOrdered By: Marquise Disla on 07-13-2023 ALP [Catalytic activity/Vol] 113 U/L 34-104 [facility] Aspartate aminotransferase [ Enzymatic activity/volume] in Serum or PlasmaOrdered By: Marquise Disla on 07-13-2023 AST [Catalytic activity/Vol] 13 U/L 13-39 [facility] Basophils Auto (Bld) [#/Vol] Ordered By: Marquise Disla on 07-13-2023 Basophils (Bld) [#/Vol] 0.1 10*3/uL 0.0-0.2 [facility] Basophils/100 WBC Auto (Bld) Ordered By: Marquise Disla on 07-13-2023 Basophils/100 WBC (Bld) 1.2 % . [facility] Bilirubin.total [Mass/volume ] in Serum or PlasmaOrdered By: Marquise Disla on 07-13-2023 Bilirubin [Mass/Vol] 0.6 mg/dL 0.3-1.0 [facility] Calcium [Mass/volume] in Ser um or PlasmaOrdered By: Marquise Disla on 07-13-2023 Calcium [Mass/Vol] 9.6 mg/dL 8.6-10.3 [facility] Carbon dioxide, total [Moles /volume] in Serum or PlasmaOrdered By: Marquise Disla on 07-13-2023 CO2 [Moles/Vol] 27.9 mmol/L 21.0-31.0 [facility] Chloride [Moles/volume] in S brian or PlasmaOrdered By: Marquise Disla on 07-13-2023 Chloride [Moles/Vol] 106 mmol/L 98-107 [facility] Cholesterol [Mass/volume] in Serum or PlasmaOrdered By: Marquise Disla on 07-13-2023 Cholesterol [Mass/Vol] 208 mg/dL 140-200 [facility] Comment on above: Chol less than 200 m g/dl low riskChol 201-239 mg/dl borderline riskChol 240 mg/dl and greater high risk Cholesterol in LDL Calc [Mas s/Vol]Ordered By: Marquise Disla on 07-13-2023 Cholesterol in LDL [Mass/Vol] 150 mg/dL 0-100 [facility] Comment on above: LDL ATP III CLASSIFI CATIONLDL less than 100 mg/dL OptimalLDL 100-129 mg/dL Near or above optimalLDL 130-159 mg/dL Borderline highLDL 160-189 mg/dL HighLDL greater than 189 mg/dL Very high Cholesterol in LDL [Mass/vol ume] in Serum or PlasmaOrdered By: Marquise Disla on 07-13-2023 Cholesterol in LDL [Mass/Vol] 171 mg/dL 0-100 [facility] Comment on above: LDL ATP III CLASSIFI CATIONLDL less than 100 mg/dL OptimalLDL 100-129 mg/dL Near or above optimalLDL 130-159 mg/dL Borderline highLDL 160-189 mg/dL HighLDL greater than 189 mg/dL Very high Cholesterol in VLDL Calc [Ma ss/Vol]Ordered By: Marquise Disla on 07-13-2023 Cholesterol in VLDL [Mass/Vol] 17 mg/dL [facility] Creatinine [Mass/volume] in Serum or PlasmaOrdered By: Marquise Disla on 07-13-2023 Creatinine [Mass/Vol] 0.69 mg/dL 0.60-1.20 [facility] Eosinophils Auto (Bld) [#/Vo l]Ordered By: Marquise Disla on 07-13-2023 Eosinophils (Bld) [#/Vol] 0.3 10*3/uL 0.0-0.45 [facility] Eosinophils/100 WBC Auto (Bl d)Ordered By: Marquise Disla on 07-13-2023 Eosinophils/100 WBC (Bld) 3.3 % . [facility] Erythrocyte distribution wid th Auto (RBC) [Ratio]Ordered By: Marquise Disla on 07-13-2023 Erythrocyte distribution width (RBC) [Ratio] 16.1 % 11.9-15.3 [facility] Globulin Calc (S) [Mass/Vol] Ordered By: Marquise Disla on 07-13-2023 Globulin (S) [Mass/Vol] 3.4 g/dL [facility] Glucose [Mass/volume] in Ser um or PlasmaOrdered By: Marquise Disla on 07-13-2023 Glucose [Mass/Vol] 87 mg/dL 70-100 [facility] Comment on above: ADA recommended refe rence rangeRandom Glucose Reference Range is dependent on time and content of last meal. Glucose of more than 200 mg/dL in a nonstressed, ambulatory subject supports the diagnosis of Diabetes Mellitus. Hematocrit Auto (Bld) [Volum e fraction]Ordered By: Marquise Disla on 07-13-2023 Hematocrit (Bld) [Volume fraction] 39.7 % 34.0-46.4 [facility] Hemoglobin [Mass/volume] in BloodOrdered By: Marquise Disla on 07-13-2023 Hemoglobin (Bld) [Mass/Vol] 12.8 g/dL 11.8-15.4 [facility] Leukocytes [#/volume] correc abdias for nucleated erythrocytes in Blood by Automated counOrdered By: Marquise Disla on 07-13-2023 WBC corrected for nucl RBC Auto (Bld) [#/Vol] 10.3 10*3/uL 3.8-11.6 [facility] Lymphocytes Auto (Bld) [#/Vo l]Ordered By: Marquise Disla on 07-13-2023 Lymphocytes (Bld) [#/Vol] 3.2 10*3/uL 1.00-4.8 [facility] Lymphocytes/100 WBC Auto (Bl d)Ordered By: Marquise Disla on 07-13-2023 Lymphocytes/100 WBC (Bld) 31.0 % . [facility] MCH Auto (RBC) [Entitic mass ]Ordered By: Marquise Disla on 07-13-2023 MCH (RBC) [Entitic mass] 23.1 pg 24.7-34.3 [facility] MCHC Auto (RBC) [Mass/Vol]Or dered By: Marquise Disla on 07-13-2023 MCHC (RBC) [Mass/Vol] 32.2 g/dL 32.0-35.0 [facility] MCV Auto (RBC) [Entitic vol] Ordered By: Marquise Disla on 07-13-2023 MCV (RBC) [Entitic vol] 71.6 fL 80-100 [facility] Monocytes Auto (Bld) [#/Vol] Ordered By: Marquise Disla on 07-13-2023 Monocytes (Bld) [#/Vol] 0.7 10*3/uL 0.0-0.8 [facility] Monocytes/100 WBC Auto (Bld) Ordered By: Marquise Disla on 07-13-2023 Monocytes/100 WBC (Bld) 6.5 % . [facility] Neutrophils Auto (Bld) [#/Vo l]Ordered By: Marquise Disla on 07-13-2023 Neutrophils (Bld) [#/Vol] 6.0 10*3/uL 1.8-7.7 [facility] Neutrophils/100 WBC Auto (Bl d)Ordered By: Marquise Disla on 07-13-2023 Neutrophils/100 WBC (Bld) 58.0 % . [facility] No Panel InformationOrdered By: Marquise Disla on 07-13-2023 Estimated GFR (CKD-EPI) > 60.0 mL/Min [facility] Creatinine Clearance (Chem N/A [facility] Nucleated erythrocytes [Pres ence] in Blood by Automated countOrdered By: Marquise Disla on 07-13-2023 Nucleated RBC Auto Ql (Bld) 0.2 /100{WBC} 0-0.5 [facility] Platelet mean volume Auto (B ld) [Entitic vol]Ordered By: Marquise Disla on 07-13-2023 Platelet mean volume (Bld) [Entitic vol] 7.2 fL 6.3-10.7 [facility] Platelets Auto (Bld) [#/Vol] Ordered By: Marquise Disla on 07-13-2023 Platelets (Bld) [#/Vol] 394 10*3/uL 150-450 [facility] Potassium [Moles/volume] in Serum or PlasmaOrdered By: Marquise Disla on 07-13-2023 Potassium [Moles/Vol] 4.3 mmol/L 3.5-5.1 [facility] Protein [Mass/volume] in Ser um or PlasmaOrdered By: Marquise Disla on 07-13-2023 Protein [Mass/Vol] 7.6 g/dL 6.4-8.9 [facility] RBC Auto (Bld) [#/Vol]Ordere d By: Marquise Disla on 07-13-2023 RBC (Bld) [#/Vol] 5.55 10*6/uL 3.60-5.00 [facility] Serum or plasma albumin/glob ulin mass ratioOrdered By: Marquise Disla on 07-13-2023 Albumin/Globulin [Mass ratio] 1.2 {ratio} [facility] Serum or plasma anion gap de terminationOrdered By: Marquise Disla on 07-13-2023 Anion gap [Moles/Vol] 11.4 mmol/L 6.0-15.0 [facility] Serum or plasma high density lipoprotein (HDL) cholesterol measurementOrdered By: Marquise Disla on 07-13-2023 Cholesterol in HDL [Mass/Vol] 40 mg/dL 23-92 [facility] Comment on above: HDL CHOL ATP-III CLA SSIFICATION Cardiovascular RiskHDL > or equal to 60 mg/dL LOWHDL < 40 mg/dL HIGH Serum or plasma total choles terol/high density lipoprotein (HDL) cholesterol mass ratOrdered By: Marquise Disla on 07-13-2023 Cholesterol.total/Chol esterol in HDL [Mass ratio] 5.2 {ratio} <5.0 [facility] Sodium [Moles/volume] in Ser um or PlasmaOrdered By: Marquise Disla on 07-13-2023 Sodium [Moles/Vol] 141 mmol/L 136-145 [facility] Triglyceride [Mass/volume] i n Serum or PlasmaOrdered By: Marquise Disla on 07-13-2023 Triglyceride [Mass/Vol] 88 mg/dL 0-149 [facility] Comment on above: TRIG ATP III CLASSIF ICATIONTRIG less than 150 mg/dL NormalTRIG 150-199 mg/dL Borderline highTRIG 200-500 mg/dL High TRIG greater than 500 mg/dL Very highStandard traceable to the Center for Disease Conrtrol and Prevention (CDC) test method. Urea nitrogen [Mass/volume] in Serum or PlasmaOrdered By: Marquise Disla on 07-13-2023 Urea nitrogen [Mass/Vol] 10 mg/dL 7-25 [facility] Vitamin B12 ser/plasOrdered By: Marquise Disla on 07-13-2023 Cobalamin (Vitamin B12) [Mass/Vol] 324 pg/mL 180-914 [facility] WBC Auto (Bld) [#/Vol]Ordere d By: Marquise Disla on 07-13-2023 WBC (Bld) [#/Vol] 10.3 10*3/uL 3.8-11.6 [facility] Automated erythrocytes count in urine sediment (number/area)Ordered By: Agustin Sandra on 07-01-2023 RBC Auto (Urine sed) [#/Area] 5-9 [HPF] 0-4 [facility] Automated leukocytes count i n urine sediment (number/area)Ordered By: Agustin Sandra on 07-01-2023 WBC Auto (Urine sed) [#/Area] 0-1 [HPF] 0-4 [facility] Basophils Auto (Bld) [#/Vol] Ordered By: Agustin Sandra on 07-01-2023 Basophils (Bld) [#/Vol] 0.1 10*3/uL 0.0-0.2 [facility] Basophils/100 WBC Auto (Bld) Ordered By: Agustin Sandra on 07-01-2023 Basophils/100 WBC (Bld) 0.6 % . [facility] Bilirubin Test strip Ql (U)O rdered By: Agustin Sandra on 07-01-2023 Bilirubin Ql (U) Negative Negative [facility] Calcium [Mass/volume] in Ser um or PlasmaOrdered By: Agustin Sandra on 07-01-2023 Calcium [Mass/Vol] 9.3 mg/dL 8.6-10.3 [facility] Carbon dioxide, total [Moles /volume] in Serum or PlasmaOrdered By: Agustin Sandra on 07-01-2023 CO2 [Moles/Vol] 27.9 mmol/L 21.0-31.0 [facility] Chloride [Moles/volume] in S brian or PlasmaOrdered By: Agustin Sandra on 07-01-2023 Chloride [Moles/Vol] 104 mmol/L 98-107 [facility] Color Auto (U)Ordered By: Naun Sandra on 07-01-2023 Color (U) Yellow Yellow [facility] Creatinine [Mass/volume] in Serum or PlasmaOrdered By: Agustin Sandra on 07-01-2023 Creatinine [Mass/Vol] 0.79 mg/dL 0.60-1.20 [facility] Eosinophils Auto (Bld) [#/Vo l]Ordered By: gAustin Sandra on 07-01-2023 Eosinophils (Bld) [#/Vol] 0.1 10*3/uL 0.0-0.45 [facility] Eosinophils/100 WBC Auto (Bl d)Ordered By: Agustin Sandra on 07-01-2023 Eosinophils/100 WBC (Bld) 1.1 % . [facility] Erythrocyte distribution wid th Auto (RBC) [Ratio]Ordered By: Agustin Sandra on 07-01-2023 Erythrocyte distribution width (RBC) [Ratio] 16.1 % 11.9-15.3 [facility] Glucose [Mass/volume] in Ser um or PlasmaOrdered By: Agustin Sandra on 07-01-2023 Glucose [Mass/Vol] 92 mg/dL 70-100 [facility] Comment on above: ADA recommended refe rence rangeRandom Glucose Reference Range is dependent on time and content of last meal. Glucose of more than 200 mg/dL in a nonstressed, ambulatory subject supports the diagnosis of Diabetes Mellitus. HCG ( test) IA.rapi d Ql (U)Ordered By: Agustin Sandra on 07-01-2023 HCG ( test) Ql (U) Negative [facility] Hematocrit Auto (Bld) [Volum e fraction]Ordered By: Agustin Sandra on 07-01-2023 Hematocrit (Bld) [Volume fraction] 38.1 % 34.0-46.4 [facility] Hemoglobin [Mass/volume] in BloodOrdered By: Agustin Sandra on 07-01-2023 Hemoglobin (Bld) [Mass/Vol] 12.3 g/dL 11.8-15.4 [facility] Ketones Auto test strip (U) [Mass/Vol]Ordered By: Agustin Sandra on 07-01-2023 Ketones (U) [Mass/Vol] Negative Negative [facility] Laboratory - UrinalysisOrder ed By: Agustin Sandra on 07-01-2023 Hyaline casts LM Ql (Urine sed) None seen [LPF] 0-8 [facility] Leukocytes [#/volume] correc abdias for nucleated erythrocytes in Blood by Automated counOrdered By: Agustin Sandra on 07-01-2023 WBC corrected for nucl RBC Auto (Bld) [#/Vol] 8.2 10*3/uL 3.8-11.6 [facility] Lymphocytes Auto (Bld) [#/Vo l]Ordered By: Agustin Sandra on 07-01-2023 Lymphocytes (Bld) [#/Vol] 0.7 10*3/uL 1.00-4.8 [facility] Lymphocytes/100 WBC Auto (Bl d)Ordered By: Agustin Sandra on 07-01-2023 Lymphocytes/100 WBC (Bld) 8.1 % . [facility] MCH Auto (RBC) [Entitic mass ]Ordered By: Agustin Sandra on 07-01-2023 MCH (RBC) [Entitic mass] 23.0 pg 24.7-34.3 [facility] MCHC Auto (RBC) [Mass/Vol]Or dered By: Agustin Sandra on 07-01-2023 MCHC (RBC) [Mass/Vol] 32.3 g/dL 32.0-35.0 [facility] MCV Auto (RBC) [Entitic vol] Ordered By: Agustin Sandra on 07-01-2023 MCV (RBC) [Entitic vol] 71.2 fL 80-100 [facility] Monocyte distribution width [Entitic volume] in Blood by AutomatedOrdered By: Agustin Sandra on 07-01-2023 Monocyte distribution width Auto (Bld) [Entitic vol] 24.10 % 0.00-20.00 [facility] Comment on above: For adults in ED, MD W > 20.0 may be associated with a higher risk of sepsis during the first 12 hrs of hospital admission Monocytes Auto (Bld) [#/Vol] Ordered By: Agustin Sandra on 07-01-2023 Monocytes (Bld) [#/Vol] 0.7 10*3/uL 0.0-0.8 [facility] Monocytes/100 WBC Auto (Bld) Ordered By: Agustin Sandra on 07-01-2023 Monocytes/100 WBC (Bld) 8.5 % . [facility] Neutrophils Auto (Bld) [#/Vo l]Ordered By: Agustin Sandra on 07-01-2023 Neutrophils (Bld) [#/Vol] 6.7 10*3/uL 1.8-7.7 [facility] Neutrophils/100 WBC Auto (Bl d)Ordered By: Agustin Sandra on 07-01-2023 Neutrophils/100 WBC (Bld) 81.7 % . [facility] Nitrite Test strip Ql (U)Ord ered By: Agustin Sandra on 07-01-2023 Nitrite Ql (U) Negative Negative [facility] No Panel InformationOrdered By: Agustin Sandra on 07-01-2023 Estimated GFR (CKD-EPI) > 60.0 mL/Min [facility] Creatinine Clearance (Chem 127.26 [facility] Nucleated erythrocytes [Pres ence] in Blood by Automated countOrdered By: Agustin Sandra on 07-01-2023 Nucleated RBC Auto Ql (Bld) 0.0 /100{WBC} 0-0.5 [facility] Platelet mean volume Auto (B ld) [Entitic vol]Ordered By: Agustin Snadra on 07-01-2023 Platelet mean volume (Bld) [Entitic vol] 7.4 fL 6.3-10.7 [facility] Platelets Auto (Bld) [#/Vol] Ordered By: Agustin Sandra on 07-01-2023 Platelets (Bld) [#/Vol] 320 10*3/uL 150-450 [facility] Potassium [Moles/volume] in Serum or PlasmaOrdered By: Agustni Sandra on 07-01-2023 Potassium [Moles/Vol] 3.9 mmol/L 3.5-5.1 [facility] Protein Auto test strip (U) [Mass/Vol]Ordered By: Agustin Sandra on 07-01-2023 Protein (U) [Mass/Vol] Negative Negative [facility] RBC Auto (Bld) [#/Vol]Ordere d By: Agustin Sandra on 07-01-2023 RBC (Bld) [#/Vol] 5.35 10*6/uL 3.60-5.00 [facility] Serum or plasma anion gap de terminationOrdered By: Agustin Sandra on 07-01-2023 Anion gap [Moles/Vol] 11.0 mmol/L 6.0-15.0 [facility] Sodium [Moles/volume] in Ser um or PlasmaOrdered By: Agustin Sandra on 07-01-2023 Sodium [Moles/Vol] 139 mmol/L 136-145 [facility] Specific gravity Auto test s trip (U) [Rel density]Ordered By: Agustin Sandra on 07-01-2023 Specific gravity (U) [Rel density] 1.012 1.001-1.030 [facility] Squamous epithelial cells de tection in urine sediment by light microscopyOrdered By: Agustin Sandra 07-01-2023 Epithelial cells.squamous LM Ql (Urine sed) 0-1 [HPF] 0-2 [facility] Urea nitrogen [Mass/volume] in Serum or PlasmaOrdered By: Agustin Sandra on 07-01-2023 Urea nitrogen [Mass/Vol] 7 mg/dL 7-25 [facility] Urine bacteria detection by automated methodOrdered By: Agustin Sandra on 07-01-2023 Bacteria Auto Ql (U) None seen None Seen [facility] Urine clarity by refractomet ry automatedOrdered By: Agustin Sandra on 07-01-2023 Clarity Refractometry automated (U) Cloudy Clear [facility] Urine glucose measurement by automated test strip (mass/volume)Ordered By: Agustin Sandra on 07-01-2023 Glucose Auto test strip (U) [Mass/Vol] Normal mg/dL Normal [facility] Urine hemoglobin detection b y automated test stripOrdered By: Agustin Sandra on 07-01-2023 Hemoglobin Auto test strip Ql (U) Trace Negative [facility] Urine leukocyte esterase det ection by automated test stripOrdered By: Agustin Sandra on 07-01-2023 Leukocyte esterase Auto test strip Ql (U) Negative Negative [facility] Urobilinogen Auto test strip (U) [Mass/Vol]Ordered By: Agustin Sandra on 07-01-2023 Urobilinogen (U) [Mass/Vol] Normal mg/dL Normal [facility] WBC Auto (Bld) [#/Vol]Ordere d By: Agustin Sandra on 07-01-2023 WBC (Bld) [#/Vol] 8.2 10*3/uL 3.8-11.6 [facility] pH Auto test strip (U)Ordere d By: Agustin Sandra on 07-01-2023 pH (U) 8.5 [pH] 5.0-9.0 [facility] Basophils Auto (Bld) [#/Vol] Ordered By: Lars Guerra on 05-31-2023 Basophils (Bld) [#/Vol] 0.1 10*3/uL 0.0-0.2 [facility] Basophils/100 WBC Auto (Bld) Ordered By: Lars Guerra on 05-31-2023 Basophils/100 WBC (Bld) 1.5 % . [facility] Calcium [Mass/volume] in Ser um or PlasmaOrdered By: Lars Guerra on 05-31-2023 Calcium [Mass/Vol] 9.1 mg/dL 8.6-10.3 [facility] Carbon dioxide, total [Moles /volume] in Serum or PlasmaOrdered By: Lars Guerra on 05-31-2023 CO2 [Moles/Vol] 29.3 mmol/L 21.0-31.0 [facility] Chloride [Moles/volume] in S brian or PlasmaOrdered By: Lars Guerra on 05-31-2023 Chloride [Moles/Vol] 106 mmol/L 98-107 [facility] Creatinine [Mass/volume] in Serum or PlasmaOrdered By: Lars Guerra on 05-31-2023 Creatinine [Mass/Vol] 0.87 mg/dL 0.60-1.20 [facility] Eosinophils Auto (Bld) [#/Vo l]Ordered By: Lars Guerra on 05-31-2023 Eosinophils (Bld) [#/Vol] 0.3 10*3/uL 0.0-0.45 [facility] Eosinophils/100 WBC Auto (Bl d)Ordered By: Lars Guerra on 05-31-2023 Eosinophils/100 WBC (Bld) 3.5 % . [facility] Erythrocyte distribution wid th Auto (RBC) [Ratio]Ordered By: Lars Guerra on 05-31-2023 Erythrocyte distribution width (RBC) [Ratio] 16.2 % 11.9-15.3 [facility] Glucose [Mass/volume] in Ser um or PlasmaOrdered By: Lars Guerra on 05-31-2023 Glucose [Mass/Vol] 91 mg/dL 70-100 [facility] Comment on above: ADA recommended refe rence rangeRandom Glucose Reference Range is dependent on time and content of last meal. Glucose of more than 200 mg/dL in a nonstressed, ambulatory subject supports the diagnosis of Diabetes Mellitus. Hematocrit Auto (Bld) [Volum e fraction]Ordered By: Lars Guerra on 05-31-2023 Hematocrit (Bld) [Volume fraction] 38.8 % 34.0-46.4 [facility] Hemoglobin [Mass/volume] in BloodOrdered By: Lars Guerra on 05-31-2023 Hemoglobin (Bld) [Mass/Vol] 12.4 g/dL 11.8-15.4 [facility] Leukocytes [#/volume] correc abdias for nucleated erythrocytes in Blood by Automated counOrdered By: Lars Guerra on 05-31-2023 WBC corrected for nucl RBC Auto (Bld) [#/Vol] 9.9 10*3/uL 3.8-11.6 [facility] Lymphocytes Auto (Bld) [#/Vo l]Ordered By: Lars Guerra on 05-31-2023 Lymphocytes (Bld) [#/Vol] 3.7 10*3/uL 1.00-4.8 [facility] Lymphocytes/100 WBC Auto (Bl d)Ordered By: Lars Guerra on 05-31-2023 Lymphocytes/100 WBC (Bld) 37.9 % . [facility] MCH Auto (RBC) [Entitic mass ]Ordered By: Lars Guerra on 05-31-2023 MCH (RBC) [Entitic mass] 23.0 pg 24.7-34.3 [facility] MCHC Auto (RBC) [Mass/Vol]Or dered By: Lars Guerra on 05-31-2023 MCHC (RBC) [Mass/Vol] 31.9 g/dL 32.0-35.0 [facility] MCV Auto (RBC) [Entitic vol] Ordered By: Lars Guerra on 05-31-2023 MCV (RBC) [Entitic vol] 72.0 fL 80-100 [facility] Monocyte distribution width [Entitic volume] in Blood by AutomatedOrdered By: Lars Guerra on 05-31-2023 Monocyte distribution width Auto (Bld) [Entitic vol] 18.79 % 0.00-20.00 [facility] Monocytes Auto (Bld) [#/Vol] Ordered By: Lars Guerra on 05-31-2023 Monocytes (Bld) [#/Vol] 0.5 10*3/uL 0.0-0.8 [facility] Monocytes/100 WBC Auto (Bld) Ordered By: Lars Guerra on 05-31-2023 Monocytes/100 WBC (Bld) 5.1 % . [facility] Neutrophils Auto (Bld) [#/Vo l]Ordered By: Lars Guerra on 05-31-2023 Neutrophils (Bld) [#/Vol] 5.1 10*3/uL 1.8-7.7 [facility] Neutrophils/100 WBC Auto (Bl d)Ordered By: Lars Guerra on 05-31-2023 Neutrophils/100 WBC (Bld) 52.0 % . [facility] No Panel InformationOrdered By: Lars Guerra on 05-31-2023 Estimated GFR (CKD-EPI) > 60.0 mL/Min [facility] Creatinine Clearance (Chem 112.72 [facility] Nucleated erythrocytes [Pres ence] in Blood by Automated countOrdered By: Lars Guerra on 05-31-2023 Nucleated RBC Auto Ql (Bld) 0.2 /100{WBC} 0-0.5 [facility] Platelet mean volume Auto (B ld) [Entitic vol]Ordered By: Lars Guerra on 05-31-2023 Platelet mean volume (Bld) [Entitic vol] 7.3 fL 6.3-10.7 [facility] Platelets Auto (Bld) [#/Vol] Ordered By: Lars Guerra on 05-31-2023 Platelets (Bld) [#/Vol] 349 10*3/uL 150-450 [facility] Potassium [Moles/volume] in Serum or PlasmaOrdered By: Lars Guerra on 05-31-2023 Potassium [Moles/Vol] 3.5 mmol/L 3.5-5.1 [facility] RBC Auto (Bld) [#/Vol]Ordere d By: Lars Guerra on 05-31-2023 RBC (Bld) [#/Vol] 5.39 10*6/uL 3.60-5.00 [facility] Serum or plasma anion gap de terminationOrdered By: Lars Guerra on 05-31-2023 Anion gap [Moles/Vol] 10.2 mmol/L 6.0-15.0 [facility] Sodium [Moles/volume] in Ser um or PlasmaOrdered By: Lars Guerra on 05-31-2023 Sodium [Moles/Vol] 142 mmol/L 136-145 [facility] Troponin I.cardiac [Mass/vol ume] in Serum or Plasma by Detection limit <= 0.01 ng/Ordered By: Lars Guerra on 05-31-2023 Troponin I.cardiac DL <= 0.01 ng/mL [Mass/Vol] 5.9 pg/mL 0.0-15.0 [facility] Urea nitrogen [Mass/volume] in Serum or PlasmaOrdered By: Lars Guerra on 05-31-2023 Urea nitrogen [Mass/Vol] 9 mg/dL 7-25 [facility] WBC Auto (Bld) [#/Vol]Ordere d By: Lars Guerra on 05-31-2023 WBC (Bld) [#/Vol] 9.9 10*3/uL 3.8-11.6 [facility] Serum heterophile antibody d etection by latex agglutinationOrdered By: Arnoldo Pérez on 01-19-2023 Heterophile Ab LA Ql (S) Negative Negative [facility] Streptococcus pyogenes antig en detectionOrdered By: Arnoldo Pérez on 01-19-2023 S. pyogenes Ag Ql (Unsp spec) [facility] COVID CepheidOrdered By: Radha Cooper on 01-08-2023 SARS-CoV-2 (COVID-19) Ab IA Ql Negative Negative [facility] Comment on above: This is a duplicate Cepheid Xpert Xpress CoV-2/Flu/RSV Plus RNA by RT-PCR result to be used for statistical tracking purpose only. SARS-CoV-2 (COVID-19) RNA AMBROSE+probe Ql (Unsp spec) [facility] Streptococcus pyogenes antig en detectionOrdered By: Caitlyn Cooper on 01-04-2023 S. pyogenes Ag Ql (Unsp spec) [facility] COVID CepheidOrdered By: Cachorro Breaux on 11-17-2022 SARS-CoV-2 (COVID-19) Ab IA Ql Negative Negative [facility] Comment on above: This is a duplicate Cepheid Xpert Xpress CoV-2/Flu/RSV Plus RNA by RT-PCR result to be used for statistical tracking purpose only. SARS-CoV-2 (COVID-19) RNA AMBROSE+probe Ql (Unsp spec) [facility] SARS-CoV-2 (COVID-19) RNA AMBROSE+probe Ql (Unsp spec) [facility] COVID-19 SOFIAOrdered By: Jose Pearl on 08-23-2022 SARS-CoV+SARS-CoV-2 (COVID-19) Ag IA.rapid Ql (Resp) Negative Negative [facility] Comment on above: This is a duplicate Lilibeth SARS Antigen (REGINO) result to be used for statistical tracking purpose only. No Panel InformationOrdered By: Praveen Pearl on 08-23-2022 SARS Antigen (LFIA) [facility] POINT OF CARE GLUCOSEon 05-0 Glucose [Mass/Vol] 116 mg/dL Critically high 74-106 [facility] Comment on above: Performed By: #### P OCGLUC #### [facility] [address] [address] [address] Mai Salamanca PREG HCG QUALon 03-30-2022 , QUAL Negative Normal NEGATIVE [facility] Comment on above: Performed By: #### P REG #### [facility] [address] [address] [address] Mai Salamanca Vital Signs Date Time Vital Sign Value Performing Clinician Facility 08-23-2024 13:37-0400 Diastolic blood pressure 86 mm[Hg] [facility] Work Phone: [facility] 08-23-2024 13:37-0400 Heart rate 86 /min [facility] Work Phone: [facility] 08-23-2024 13:37-0400 Respiratory rate 16 /min [facility] Work Phone: [facility] 08-23-2024 13:37-0400 SaO2% (BldA) [Mass fraction] 100 % [facility] Work Phone: [facility] 08-23-2024 13:37-0400 Systolic blood pressure 130 mm[Hg] [facility] Work Phone: [facility] 08-23-2024 12:43-0400 Body height 175.26 cm [facility] Work Phone: [facility] 08-23-2024 12:43-0400 Body weight 111.58 kg [facility] Work Phone: [facility] 08-23-2024 12:40-0400 Body temperature 97.9 [degF] [facility] Work Phone: [facility] 08-07-2024 11:03-0400 Body height 176.53 cm [facility] Work Phone: [facility] 08-07-2024 11:03-0400 Body temperature 99 [degF] [facility] Work Phone: [facility] 08-07-2024 11:03-0400 Body weight 112 kg [facility] Work Phone: [facility] 08-07-2024 11:03-0400 Diastolic blood pressure 83 mm[Hg] [facility] Work Phone: [facility] 08-07-2024 11:03-0400 Heart rate 105 /min [facility] Work Phone: [facility] 08-07-2024 11:03-0400 Respiratory rate 18 /min [facility] Work Phone: [facility] 08-07-2024 11:03-0400 SaO2% (BldA) [Mass fraction] 100 % [facility] Work Phone: [facility] 08-07-2024 11:03-0400 Systolic blood pressure 155 mm[Hg] [facility] Work Phone: [facility] 07-10-2024 19:29-0400 Diastolic blood pressure 92 mm[Hg] [facility] Work Phone: [facility] 07-10-2024 19:29-0400 Heart rate 83 /min [facility] Work Phone: [facility] 07-10-2024 19:29-0400 Respiratory rate 18 /min [facility] Work Phone: [facility] 07-10-2024 19:29-0400 SaO2% (BldA) [Mass fraction] 99 % [facility] Work Phone: [facility] 07-10-2024 19:29-0400 Systolic blood pressure 143 mm[Hg] [facility] Work Phone: [facility] 07-10-2024 16:27-0400 Body height 175.26 cm [facility] Work Phone: [facility] 07-10-2024 16:27-0400 Body temperature 98.7 [degF] [facility] Work Phone: [facility] 07-10-2024 16:27-0400 Body weight 113.75 kg [facility] Work Phone: [facility] 07-01-2023 11:53-0400 Diastolic blood pressure 85 mm[Hg] [facility] Work Phone: [facility] 07-01-2023 11:53-0400 Heart rate 92 /min [facility] Work Phone: [facility] 07-01-2023 11:53-0400 Systolic blood pressure 149 mm[Hg] [facility] Work Phone: [facility] 07-01-2023 09:37-0400 Body height 176.53 cm [facility] Work Phone: [facility] 07-01-2023 09:37-0400 Body temperature 99.3 [degF] [facility] Work Phone: [facility] 07-01-2023 09:37-0400 Body weight 122.46 kg [facility] Work Phone: [facility] 07-01-2023 09:37-0400 Respiratory rate 24 /min [facility] Work Phone: [facility] 07-01-2023 09:37-0400 SaO2% (BldA) [Mass fraction] 99 % [facility] Work Phone: [facility] 06-19-2023 00:00-0400 Diastolic blood pressure 61 mm[Hg] [facility] Work Phone: [facility] 06-19-2023 00:00-0400 Heart rate 71 /min [facility] Work Phone: [facility] 06-19-2023 00:00-0400 Respiratory rate 20 /min [facility] Work Phone: [facility] 06-19-2023 00:00-0400 SaO2% (BldA) [Mass fraction] 100 % [facility] Work Phone: [facility] 06-19-2023 00:00-0400 Systolic blood pressure 129 mm[Hg] [facility] Work Phone: [facility] 06-18-2023 21:21-0400 Body height 175.26 cm [facility] Work Phone: [facility] 06-18-2023 21:21-0400 Body weight 117.02 kg [facility] Work Phone: [facility] 06-18-2023 21:20-0400 Body temperature 98.6 [degF] [facility] Work Phone: [facility] 06-03-2023 11:58-0400 Diastolic blood pressure 90 mm[Hg] [facility] Work Phone: [facility] 06-03-2023 11:58-0400 Heart rate 91 /min [facility] Work Phone: [facility] 06-03-2023 11:58-0400 Systolic blood pressure 145 mm[Hg] [facility] Work Phone: [facility] 05-31-2023 04:30-0400 Diastolic blood pressure 82 mm[Hg] [facility] Work Phone: [facility] 05-31-2023 04:30-0400 Heart rate 75 /min [facility] Work Phone: [facility] 05-31-2023 04:30-0400 Respiratory rate 20 /min [facility] Work Phone: [facility] 05-31-2023 04:30-0400 SaO2% (BldA) [Mass fraction] 98 % [facility] Work Phone: [facility] 05-31-2023 04:30-0400 Systolic blood pressure 150 mm[Hg] [facility] Work Phone: [facility] 05-30-2023 23:32-0400 Body height 176.53 cm [facility] Work Phone: [facility] 05-30-2023 23:32-0400 Body temperature 98.2 [degF] [facility] Work Phone: [facility] 05-30-2023 23:32-0400 Body weight 117.02 kg [facility] Work Phone: [facility] 04-18-2023 12:10-0400 Body temperature 98.2 [degF] [facility] Work Phone: [facility] 04-18-2023 12:10-0400 Diastolic blood pressure 91 mm[Hg] [facility] Work Phone: [facility] 04-18-2023 12:10-0400 Heart rate 86 /min [facility] Work Phone: [facility] 04-18-2023 12:10-0400 Respiratory rate 18 /min [facility] Work Phone: [facility] 04-18-2023 12:10-0400 SaO2% (BldA) [Mass fraction] 100 % [facility] Work Phone: [facility] 04-18-2023 12:10-0400 Systolic blood pressure 169 mm[Hg] [facility] Work Phone: [facility] 04-18-2023 12:06-0400 Body height 175.26 cm [facility] Work Phone: [facility] 04-18-2023 12:06-0400 Body weight 129.1 kg [facility] Work Phone: [facility] 01-19-2023 09:40-0500 Diastolic blood pressure 67 mm[Hg] [facility] Work Phone: [facility] 01-19-2023 09:40-0500 Heart rate 86 /min [facility] Work Phone: [facility] 01-19-2023 09:40-0500 Respiratory rate 20 /min [facility] Work Phone: [facility] 01-19-2023 09:40-0500 SaO2% (BldA) [Mass fraction] 100 % [facility] Work Phone: [facility] 01-19-2023 09:40-0500 Systolic blood pressure 145 mm[Hg] [facility] Work Phone: [facility] 01-19-2023 07:19-0500 Body height 175.26 cm [facility] Work Phone: [facility] 01-19-2023 07:19-0500 Body temperature 98 [degF] [facility] Work Phone: [facility] 01-19-2023 07:19-0500 Body weight 127.3 kg [facility] Work Phone: [facility] 01-08-2023 14:52-0500 Body height 176.53 cm [facility] Work Phone: [facility] 01-08-2023 14:52-0500 Body temperature 98.9 [degF] [facility] Work Phone: [facility] 01-08-2023 14:52-0500 Body weight 124.45 kg [facility] Work Phone: [facility] 01-08-2023 14:52-0500 Diastolic blood pressure 74 mm[Hg] [facility] Work Phone: [facility] 01-08-2023 14:52-0500 Heart rate 93 /min [facility] Work Phone: [facility] 01-08-2023 14:52-0500 Respiratory rate 20 /min [facility] Work Phone: [facility] 01-08-2023 14:52-0500 SaO2% (BldA) [Mass fraction] 98 % [facility] Work Phone: [facility] 01-08-2023 14:52-0500 Systolic blood pressure 143 mm[Hg] [facility] Work Phone: [facility] 01-04-2023 11:34-0500 Body height 175.26 cm [facility] Work Phone: [facility] 01-04-2023 11:34-0500 Body temperature 98.7 [degF] [facility] Work Phone: [facility] 01-04-2023 11:34-0500 Body weight 107.9 kg [facility] Work Phone: [facility] 01-04-2023 11:34-0500 Diastolic blood pressure 91 mm[Hg] [facility] Work Phone: [facility] 01-04-2023 11:34-0500 Heart rate 98 /min [facility] Work Phone: [facility] 01-04-2023 11:34-0500 Respiratory rate 18 /min [facility] Work Phone: [facility] 01-04-2023 11:34-0500 SaO2% (BldA) [Mass fraction] 100 % [facility] Work Phone: [facility] 01-04-2023 11:34-0500 Systolic blood pressure 165 mm[Hg] [facility] Work Phone: [facility] 11-17-2022 02:32-0500 Diastolic blood pressure 98 mm[Hg] [facility] Work Phone: [facility] 11-17-2022 02:32-0500 Heart rate 92 /min [facility] Work Phone: [facility] 11-17-2022 02:32-0500 Respiratory rate 18 /min [facility] Work Phone: [facility] 11-17-2022 02:32-0500 SaO2% (BldA) [Mass fraction] 98 % [facility] Work Phone: [facility] 11-17-2022 02:32-0500 Systolic blood pressure 168 mm[Hg] [facility] Work Phone: [facility] 11-16-2022 23:12-0500 Body height 176.53 cm [facility] Work Phone: [facility] 11-16-2022 23:12-0500 Body weight 126.35 kg [facility] Work Phone: [facility] 11-16-2022 23:11-0500 Body temperature 98.1 [degF] [facility] Work Phone: [facility] 09-17-2022 23:07-0400 Body height 175.26 cm [facility] Work Phone: [facility] 09-17-2022 23:07-0400 Body temperature 98.2 [degF] [facility] Work Phone: [facility] 09-17-2022 23:07-0400 Body weight 124.25 kg [facility] Work Phone: [facility] 09-17-2022 23:07-0400 Diastolic blood pressure 70 mm[Hg] [facility] Work Phone: [facility] 09-17-2022 23:07-0400 Heart rate 75 /min [facility] Work Phone: [facility] 09-17-2022 23:07-0400 Respiratory rate 18 /min [facility] Work Phone: [facility] 09-17-2022 23:07-0400 SaO2% (BldA) [Mass fraction] 94 % [facility] Work Phone: [facility] 09-17-2022 23:07-0400 Systolic blood pressure 153 mm[Hg] [facility] Work Phone: [facility] 08-23-2022 07:17-0400 Body height 175.26 cm DO Clyde Visci Work Phone: [facility] 08-23-2022 07:17-0400 Body temperature 98.2 [degF] DO Clyde Visci Work Phone: [facility] 08-23-2022 07:17-0400 Body weight 110.22 kg DO Clyde Visci Work Phone: [facility] 08-23-2022 07:17-0400 Diastolic blood pressure 75 mm[Hg] DO Clyde Visci Work Phone: [facility] 08-23-2022 07:17-0400 Heart rate 83 /min DO Clyde Visci Work Phone: [facility] 08-23-2022 07:17-0400 Respiratory rate 18 /min DO Clyde Visci Work Phone: [facility] 08-23-2022 07:17-0400 SaO2% (BldA) [Mass fraction] 100 % DO Clyde Visci Work Phone: [facility] 08-23-2022 07:17-0400 Systolic blood pressure 145 mm[Hg] DO Clyde Visci Work Phone: [facility] 07-13-2022 12:00-0400 Body height 175.26 cm Jase Rosenberg Other [employer] Other 07-13-2022 12:00-0400 Body mass index (BMI) [Ratio] 39.13 kg/m2 Jase Hadleyxa Other [employer] Other 07-13-2022 12:00-0400 Body weight 120.2 kg Jase Hadleyxa Other [employer] Other 07-06-2022 21:44-0400 Body height 176.53 cm DO Clyde Visci Work Phone: [facility] 07-06-2022 21:44-0400 Body weight 112.49 kg DO Clyde Visci Work Phone: [facility] 07-06-2022 21:43-0400 Body temperature 98.2 [degF] DO Clyde Visci Work Phone: [facility] 07-06-2022 21:43-0400 Diastolic blood pressure 72 mm[Hg] DO Clyde Visci Work Phone: [facility] 07-06-2022 21:43-0400 Heart rate 93 /min DO Clyde Visci Work Phone: [facility] 07-06-2022 21:43-0400 Respiratory rate 17 /min DO Clyde Visci Work Phone: [facility] 07-06-2022 21:43-0400 SaO2% (BldA) [Mass fraction] 100 % DO Clyde Visci Work Phone: [facility] 07-06-2022 21:43-0400 Systolic blood pressure 135 mm[Hg] DO Clyde Visci Work Phone: [facility] 2019 13:18-0500 BMI (Body Mass Index) 40.2 kg/m2 [facility] 2019 13:18-0500 Body Temperature 98.2 [degF] [facility] 2019 13:18-0500 Body weight 127.3 kg [facility] 2019 13:18-0500 BP Diastolic 81 mm[Hg] [facility] 2019 13:18-0500 BP Systolic 143 mm[Hg] [facility] 2019 13:18-0500 Height 177.8 cm [facility] 2019 13:18-0500 Pulse (Heart Rate) 88 /min [facility] 2019 13:18-0500 Pulse Oximetry 99 % Clyde Aguilera [facility] 2019 13:18-0500 Respiratory Rate 17 /min [facility] Encounters Encounter Date Encounter Type Care Provider Facility Start: 09-07-2024 End: 09-07-2024 Patient encounter procedure [facility] Work Phone: [facility] [place] Work Phone: Start: 09-07-2024 End: 09-07-2024 ambulatory Teo Heath Facility:[facility] Start: 08-23-2024 End: 08-23-2024 Emergency department patient visit [facility] Work Phone: [facility] Work Phone: Start: 08-07-2024 End: 08-07-2024 Emergency department patient visit [facility] Work Phone: [facility] Work Phone: Start: 07-10-2024 End: 07-10-2024 Emergency department patient visit [facility] Work Phone: [facility] Work Phone: Start: 03-12-2024 End: 03-13-2024 ambulatory Alfie Dixon MD Facility:[facility] Start: 03-08-2024 End: 03-08-2024 Patient encounter procedure [facility] Work Phone: [facility] Start: 03-08-2024 End: 03-08-2024 ambulatory [facility] Phone: [facility] Work Phone: Start: 02-27-2024 End: 02-28-2024 ambulatory Alfie Dixon MD Facility:[facility] Start: 02-06-2024 End: 02-07-2024 ambulatory Alfie Dixon MD Facility:[facility] Start: 12-02-2023 End: 12-02-2023 Patient encounter procedure [facility] Work Phone: [facility] Work Phone: Start: 12-02-2023 End: 12-02-2023 ambulatory [facility] Work Phone: [facility] Work Phone: Start: 10-07-2023 End: 10-07-2023 Patient encounter procedure [facility] Work Phone: [facility] [place] Work Phone: Start: 10-07-2023 End: 10-07-2023 ambulatory [facility] Work Phone: [facility] Work Phone: Start: 08-09-2023 End: 08-09-2023 [facility]ulatory [facility] Work Phone: [facility] Work Phone: Start: 08-09-2023 End: 08-09-2023 Patient encounter procedure [facility] Work Phone: [facility]Electrodiagnostics Work Phone: Start: 07-13-2023 End: 07-13-2023 [facility]ulatory [facility] Work Phone: [facility] Work Phone: Start: 07-13-2023 End: 07-13-2023 Patient encounter procedure [facility] Work Phone: [facility] [place] Work Phone: Start: 07-01-2023 End: 07-01-2023 Emergency department patient visit [facility] Work Phone: [facility]-Emergency Room Work Phone: Start: 06-18-2023 End: 06-19-2023 Emergency department patient visit [facility] Work Phone: [facility]-Emergency [facility] Work Phone: Start: 06-14-2023 End: 06-14-2023 ambulatory Jase Rosenberg Other [facility] Other Start: 06-14-2023 Office outpatient visit 15 minutes Jase Shakira [facility] Start: 06-14-2023 End: 06-14-2023 Patient encounter procedure [facility] Work Phone: [facility] [place] [facility] Start: 06-03-[address] Marcos Gregory Facility:[id number] Start: 05-30-2023 End: 05-31-2023 Emergency department patient visit [facility] Work Phone: [facility]Emer[facility] Work Phone: Start: 05-12-2023 ambulatory ANGEL SWAIN . Facility:H1 Start: 04-18-2023 End: 04-18-2023 Emergency department patient visit [facility] Work Phone: [facility]Emer[facility] Work Phone: Start: 02-10-2023 End: 02-11-[address] UZAIR LIGHT . Facility:H1 Start: 01-19-2023 End: 01-19-2023 Emergency department patient visit [facility] Work Phone: [facility] Work Phone: Start: 01-08-2023 End: 01-08-2023 Emergency department patient visit [facility] Work Phone: [facility]Emergency [facility] Work Phone: Start: 01-04-2023 End: 01-04-2023 Emergency department patient visit [facility] Work Phone: [facility] Work Phone: Start: 11-16-2022 End: 11-17-2022 Emergency department patient visit [facility] Work Phone: [facility]Emergency [facility] Start: 11-04-2022 End: 11-05-[address] UZAIR LIGHT . Facility:H1 Start: 10-12-2022 End: 10-12-2022 Patient encounter procedure Services [facility] Work Phone: [facility] Start: 09-17-2022 End: 09-18-2022 Emergency department patient visit Services [facility] Work Phone: [facility]-Emergency Room Start: 08-23-2022 End: 08-23-2022 Emergency department patient visit DO Clyde Visci Work Phone: [facility]-Emergency Room Start: 08-18-2022 End: 08-18-2022 Patient encounter procedure DO Clyde Visci Work Phone: [facility]-MRI [address] Start: 07-13-2022 End: 07-13-2022 ambulatory Jase Rosenberg Other [employer] Other Start: 07-13-2022 Office outpatient ne w 45 minutes Jase Rosenberg [facility] Start: 07-08-2022 End: 07-09-[address] UZAIR LIGHT . Facility:H1 Start: 07-06-2022 End: 07-06-2022 Emergency department patient visit DO Clyde Visci Work Phone: [facility]-Emergency Room Start: 04-15-2022 End: 04-16-[address] UZAIR LIGHT . Facility:H1 Start: 03-30-2022 End: 03-30-[address] UZAIR LIGHT . Facility:H1 Start: 01-08-2020 End: 01-08-2020 Patient encounter procedure Clyed Visci -Ultrasound [facility] [place] Start: 2019 End: 2019 Emergency department patient visit Clyde Visci -Emergency Room Start: 09-17-2019 End: 09-17-2019 Emergency department patient visit Clyde Visci -Emergency Room Start: 12-26-2018 End: 12-26-2018 Patient encounter procedure Clyde Visci -XRay [address] Start: 02-02-2005 Evaluation and management of inpatient Clyde Aguilera -[facility] Post Procedures Date Procedure Procedure Detail Performing Clinician Start: 08-07-2024 X-ray of right foot Ser katie [facility]ul Phone: Start: 07-10-2024 Computed tomography of abdomen and pelvis with contrast [facility] Phone: Start: 03-08-2024 Ultrasonography of b ilateral breasts [facility] Phone: Start: 12-02-2023 Screening mammograph y of bilateral breasts [facility] Phone: Start: 06-18-2023 CT of head without contrast [facility] Phone: Start: 06-18-2023 Plain X-ray of left shoulder [facility] Phone: Start: 06-14-2023 Plain X-ray of left wrist [facility] Phone: Start: 06-03-2023 Radionuclide myocard ial perfusion stress study [facility] Phone: Start: 05-31-2023 Plain chest X-ray Servi rachel [facility] Phone: Start: 04-18-2023 Plain X-ray of left wrist [facility] Phone: Start: 01-19-2023 Streptococcus pyogen es antigen assay [facility] Phone: Start: 01-08-2023 SARS-CoV-2, Influenz a & RSV (PCR) [facility] Phone: Start: 01-04-2023 Streptococcus pyogen es antigen assay [facility] Phone: Start: 11-17-2022 SARS-CoV-2, Influenz a & RSV (PCR) [facility] Phone: Start: 10-12-2022 X-ray of left ankle Ser katie [facility]ul Phone: Start: 08-18-2022 MRI of right knee DO Ri gael [employer] Work Phone: Start: 07-06-2022 Plain X-ray of left wrist DO Clyde Aguilera Work Phone: Start: 07-06-2022 X-ray of right knee DO Clyde Aguilera Work Phone: Start: 01-08-2020 Duplex scan of lower limb veins Clyde Aguilera Start: 2019 X-ray of left ankle Igovanni hard Visci H/O: section S/P DO Estrella mayo Visci Work Phone: SARS Antigen (LFIA) DO Karen rd Visci Work Phone: SARS-CoV-2, Influenz a & RSV (PCR) Services [facility] Work Phone: Plan of Treatment Date Care Activity Detail Author Start: 07-10-2024 [facility] Start: 06-18-2023 CT of head without contrast CT head/ brain wo con [facility] Start: 06-18-2023 CT Unspecified body region WO contrast [facility] Start: 06-18-2023 Plain X-ray of left shoulder XR shoulder LT min 2V* [facility] Start: 06-18-2023 XR Shoulder - left Views [facility] Start: 05-31-2023 [facility] Start: 05-31-2023 Plain chest X-ray XR chest 2V* [facility] Start: 05-31-2023 XR Chest 2 Views [facility] Cardiovascular stres s testing [facility] Patient Education [facility] Patient referral [facility] Immunizations Immunization Date Immunization Notes Care Provider Fa cility 12-10-2018 tetanus toxoid, redu nissa diphtheria toxoid, and acellular pertussis vaccine, adsorbed Clyed Aguilera [facility] Payers Date Payer Category Payer Medicare 2023 Self-pay [id number] 2022 Medicaid [id number] 1978 Unknown [id number] 2.16.840.1.814625.3.579.2.5 93 1978 Unknown [id number] 2.16.840.1.763627.3.579.2.5 93 1978 Unknown [id number] 2.16.840.1.782864.3.579.2.5 93 1978 Unknown [id number] 2.16.840.1.829501.3.579.2.5 93 1978 Unknown [id number] 2.16.840.1.226297.3.579.2.5 93 1978 Unknown [id number] 2.16.840.1.379121.3.579.2.5 93 1978 Unknown [id number] 2.16.840.1.841476.3.579.2.3 56 1978 Unknown [id number] 2.16.840.1.295886.3.579.2.1 96 1978 Unknown [id number] 2.16.840.1.562819.3.579.2.1 96 1978 Unknown [id number] 2.16.840.1.857639.3.579.2.1 1959 Medicare [id number] 1959 Unknown [id number] 2.16.840.1.952051.19 Private Health Insurance [id number] Unknown Self Pay [id number] Unknown Regular Auto/Liability [id number] Unknown [id number] 2.16.840.1.181051.3.579.2.5 31 Unknown [id number] 2.16.840.1.737636.3.579.2.5 31 Unknown [id number] 2.16.840.1.781380.3.579.2.5 31 Unknown [id number] 2.16.840.1.027175.3.579.2.5 31 Unknown [id number] 2.16.840.1.812588.3.579.2.5 31 Unknown [id number] 2.16.840.1.849456.3.579.2.5 31 Unknown [id number] 2.16.840.1.242322.3.579.2.5 31 Social History Date Type Detail Facility Start: 2019 End: 08-07-2024 Tobacco smoking status PRIS Ex-smoker (finding) [facility] Start: 1980 Sex Assigned At Female [facility] Sex Assigned At Sex Assigned At [employer] Other Start: 07-06-2022 End: 08-23-2024 Tobacco smoking status [facility] Never smoked tobacco (finding) [facility] NEGATED: Highlighted row [facility] Goals Date Patient Goal Desired Activity /State [...] any persistent symptoms [address] [facility] Work Phone: 06-14-2023 Evaluation note Encounter [...] We also discussed a carpal tunnel release. [employer] Other 03-16-2023 NoteCONSULTATION CONSULTATION DATE: 02/10/2023 [...] in three months' time, unless otherwise indicated.[id number] Discharge instructions Additional Instructions Take the [...] fever difficulty breathing vomiting or any other [facility] Work Phone: [phone] 302-902012-08-2022 NoteCONSULTATION CONSULTATION DATE: 11/04/2022 HISTORY OF PRESENT [...] 20-30 a week. Patient does work at [employer] and is on her foot a lot. [...] Patient agrees with the plan of care.[id number] Evaluation note* Encounter Date Diagnosis Assessment Notes [...] tolerated the injection well without adverse reaction. [employer] Other 08-11-2022 NoteCONSULTATION CONSULTATION DATE: 07/08/2022 [...] pending appointment with Dr. Rosenberg, Orthopedic in [place] next week. 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 She is on her feet a lot and has recently experienced left lower extremity swelling. Overall, the patient felt that's some pressure has been released with this recent sympathetic block. Current medications include gabapentin 200 mg a.m., 200 mg noon and 400 mg at dusk, Percocet 5/325 t.i.d., Vistaril and a vitamin complex. The patient does continue to go to physical therapy at [facility] in [place]. Activities that aggravate her pain are standing, [...] of care and would like to proceed. [facility] Signed and Approved by: NICO GARCIAS . 04/19/2022 15:06:00[facility] noteNo assessment information availableSt. [facility] Work Phone: History general Narrative - Reported* Type Description Date Medical History Rheumatoid arthritis Medical History carpal tunnel Medical History diabetes Medical History HTN Surgical History Bilateral feet surgery-heel spu rs Surgical History x 2 Surgical History gall bladder Surgical History tendon repair, nerve repair lef t lower extremity 2020 Surgical History left carpal tunnel release 2020 Hospitalization History see surgeries [employer] Other Hospital Discharge instructions Additional Instructions Tylenol every 4 hours as needed for pain Return if symptoms are worse Watch for signs of infection Follow-up with your nailbed salon and get the false nail removed tomorrow [facility] Work Phone: Hospital Discharge instructions Additional Instructions Follow-up with your primary care doctor Return to ED if develop worsening symptoms or concern[facility] Work [facility]: Hospital Discharge instructions Additional Instructions I am not able to prescribe you any pain medication as you have a current prescription for Percocet.[facility] Work Phone: Hospital Discharge instructions Additional Instructions Return to emergency room for shortness of breath, if you feel you have throat swelling, increased pain or other concerns [facility] Work Phone: Advance Directives Advance [...] FOR VISIT (unrecogniz ed section and content) [facility] ER LT WRIST CYST RT KNE E PAIN WXLeft Wrist Pain, Right Carpal Tunnel SyndromeLeft Wrist Pain, Right Carpal Tunnel Syndrome Care Teams (unrecognized sec tion and content) Team Status: Active Member Role Status [facility] Primary Care Provider Active Team Status: Active Member Role Status Breana Aguilera DO Attending Provider Active Team Status: Inactive Member Role Status [facility] Primary Care Provider Active Agustin Sandra APRN Emergency Provider Active Team Status: Inactive Member Role Status [facility] Primary Care Provider Active Lars Guerra DO Emergency Provider Active Team Status: Inactive Member Role Status [facility] Primary Care Provider Active Marissa Elliott APRN Emergency Provider Active Team Status: Inactive Member Role Status [facility] Primary Care Provider Active Praveen Pearl DO Emergency Provider Active Team Status: Inactive Member Role Status [facility] Primary Care Provider Active Jase Rosenberg MD Attending Provider Active Team Status: Inactive Member Role Status [facility] Primary Care Provider Active Ayan Andrade MD Emergency Provider Active Team Status: Inactive Member Role Status [facility] Primary Care Provider Active Jase Breaux Jr, MD Emergency Provider Active Team Status: Inactive Member Role Status [facility] Primary Care Provider Active Abner Garcia DPM MS Attending Provider Active Team Status: Inactive Member Role Status [facility] Primary Care Provider Active VIRGEN Myles Emergency Provider Active Team Status: Inactive Member Role Status [facility] Primary Care Provider Active Arnoldo Pérez DO Emergency Provider Active Team Status: Inactive Member Role Status [facility] Primary Care Provider Active Jase Breaux [...] DATE CREATED AUTHOR AUTHOR'S ORGANIZ ATION 06/04/2023 [facility] DATE CREATED AUTHOR AUTHOR'S ORGANIZ ATION 03/21/2024 [facility] DATE CREATED AUTHOR AUTHOR'S ORGANHAYDEN ATION 09/10/2024 [facility] FOR RECORDS PERTAINING TO PATIENTS [...] BE BASED ON THE PRIMARY CLINICAL RECORDS. [facility] frenting [facility]. provides no warranty or guarantee of the accuracy or completeness of information in this document.
--- NOTE | 2024-11-05 16:04 | PM.CN ---
Consult Note: HPI Data of Consult Patient: known to practice within the last 3 years Consult date: 11/05/24 Requesting Physician: Shonda Jeffery NP Primary Care Provider: [facility] Consult Narrative Reason for consult: left foot pain Narrative: 43yof who presents for spinal cord stim lead pull. cc:: CC: Shonda Jeffery NP Review of Systems ROS Status of ROS 10 or more systems reviewed and unremarkable except as noted in history and below [facility] Medical History (Updated 10/04/24 @ 11:38 by Eliza Kaba NP) History of blood transfusion ?Z92.89 - Personal history of other medical treatment (ICD-10) Syncope (2022) ?R55 - Syncope and collapse (ICD-10) Syncope anginosa ?I20.89 - Other forms of angina pectoris (ICD-10) Diabetes ?E11.9 - Type 2 diabetes mellitus without complications (ICD-10) Postoperative nausea and vomiting ?R11.2 - Nausea with vomiting, unspecified (ICD-10) ?Z98.890 - Other specified postprocedural states (ICD-10) Equinus contracture of ankle ?M24.573 - Contracture, unspecified ankle (ICD-10) Chronic osteomyelitis ?M86.60 - Other chronic osteomyelitis, unspecified site (ICD-10) Eczema ?L30.9 - Dermatitis, unspecified (ICD-10) Varicose vein of leg ?I83.90 - Asymptomatic varicose veins of unspecified lower extremity (ICD-10) Neuropathy ?G62.9 - Polyneuropathy, unspecified (ICD-10) Fibromyalgia ?M79.7 - Fibromyalgia (ICD-10) Calcaneal spur ?M77.30 - Calcaneal spur, unspecified foot (ICD-10) Arthritis ?M19.90 - Unspecified osteoarthritis, unspecified site (ICD-10) Pain of left lower extremity ?M79.605 - Pain in left leg (ICD-10) 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 ?G57.32 - Lesion of lateral popliteal nerve, left lower limb (ICD-10) DVT (deep venous thrombosis) (~2019) ?I82.409 - Acute embolism and thrombosis of unspecified deep veins of unspecified lower extremity (ICD-10) Compartment syndrome ?T79.A0XA - Compartment syndrome, unspecified, initial encounter (ICD-10) Plantar fasciitis ?M72.2 - Plantar fascial fibromatosis (ICD-10) Carpal tunnel syndrome ?G56.00 - Carpal tunnel syndrome, unspecified upper limb (ICD-10) Prediabetes ?R73.03 - Prediabetes (ICD-10) Achilles tendinitis ?M76.60 - Achilles tendinitis, unspecified leg (ICD-10) Complex regional pain syndrome of left lower extremity ?G90.522 - Complex regional pain syndrome I of left lower limb (ICD-10) Anxiety ?F41.9 - Anxiety disorder, unspecified (ICD-10) Osteoarthritis ?M19.90 - Unspecified osteoarthritis, unspecified site (ICD-10) Low back pain ?M54.50 - Low back pain, unspecified (ICD-10) Anemia ?D64.9 - Anemia, unspecified (ICD-10) Obesity ?E66.9 - Obesity, unspecified (ICD-10) Acid reflux ?K21.9 - Gastro-esophageal reflux disease without esophagitis (ICD-10) Asthma ?J45.909 - Unspecified asthma, uncomplicated (ICD-10) Hypertension ?I10 - Essential (primary) hypertension (ICD-10) Surgical History S/P epidural steroid injection ?Z92.241 - Personal history of systemic steroid therapy (ICD-10) History of cholecystectomy (1998) ?Z90.49 - Acquired absence of other specified parts of digestive tract (ICD-10) History of carpal tunnel release ?Z98.890 - Other specified postprocedural states (ICD-10) H/O tubal ligation (12/08/18) ?Z98.51 - Tubal ligation status (ICD-10) History of ankle surgery ?Z98.890 - Other specified postprocedural states (ICD-10) H/O foot surgery ?Z98.890 - Other specified postprocedural states (ICD-10) H/O carpal tunnel repair ?Z98.890 - Other specified postprocedural states (ICD-10) History of delivery ?Z98.891 - History of uterine scar from previous surgery (ICD-10) Family History Other Family history of diabetes mellitus Family history of myocardial infarction Family history of stroke Heart disease Lymphoma Social History Within the past year, how often did you have a drink containing alcohol: monthly or less Smoking status: Former smoker Non-prescribed substance use: denies use 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 [employer] Highest level of school completed/degree received: high school graduate Meds Home Medications and Allergies Home Medications ?Medication ?Instructions ?Recorded ?Confirmed ?Type ascorbic acid (vitamin C) 500 mg 500 mg PO BID 05/06/23 10/04/24 History tablet aspirin 325 mg tablet 325 mg PO DAILY 05/06/23 10/08/24 History ferrous sulfate 325 mg (65 mg 325 mg PO DAILY 05/06/23 10/08/24 History iron) tablet hydroxyzine pamoate 25 mg capsule 25 mg PO TID 05/06/23 10/08/24 History lidocaine 5 % topical kit 1 applic topical DAILY 05/06/23 10/08/24 History promethazine 25 mg tablet 25 mg PO Q12H PRN nausea and 05/06/23 10/08/24 History vomiting pyridoxine (vitamin B6) 100 mg 100 mg PO BID 05/06/23 10/08/24 History tablet vitamin B complex (B 1 tab PO DAILY 05/06/23 10/08/24 History Complex-Vitamin B12 tablet) oxycodone-acetaminophen 5 mg-325 1 tab PO QID PRN pain #120 tabs 07/25/24 10/08/24 Rx mg tablet (Percocet) amlodipine 5 mg-olmesartan 20 mg 1 tab PO DAILY 10/04/24 10/08/24 History tablet dulaglutide 3 mg/0.5 mL 3 mg subcut QWEEK 10/04/24 10/08/24 History subcutaneous pen injector (Trulicity) meloxicam 15 mg tablet 15 mg PO DAILY 10/04/24 10/08/24 History omeprazole 20 mg capsule,delayed 20 mg PO DAILY 10/04/24 10/08/24 History release phentermine 37.5 mg tablet 37.5 mg PO DAILY 10/04/24 10/04/24 History tizanidine 4 mg capsule 4 mg PO BID 10/04/24 10/08/24 History oxycodone-acetaminophen 5 mg-325 1 tab PO QID PRN pain #120 tabs 10/15/24 Rx mg tablet (Percocet) naloxone 4 mg/actuation nasal 4 mg intranasal Q2M PRN opioid 10/17/24 Rx spray (Narcan) overdose #2 ea Allergies Allergy/AdvReac Type Severity Reaction Status Date / Time naproxen (From Naprosyn) Allergy Mild Hives Verified 10/08/24 11:04 scallops Allergy edema Verified 10/08/24 11:04 ondansetron (From Zofran) AdvReac Intermediate edema Verified 10/08/24 11:04 cyclobenzaprine (From AdvReac Mild Vomiting Verified 10/08/24 11:04 Flexeril) Exam Narrative Exam Narrative: Psych-alert and oriented x 3.? Attentive and appropriate, constitutionally normal, displays normal mood and affect per situation.? There are no obvious deficits in memory, reasoning, or intellect. Examination of the left lower extremity reveals notable hyperpathia and allodynia.? Notable atrophy and diffuse weakness present in the extremity.? There is notable shiny skin with hair loss and abnormal hair growth denoting trophic changes presently.? Asymmetric color and temperature changes are present which denotes sudomotor changes.? Decreased range of motion and strength is noted in the extremity.? Coordination remains intact.? Gait remains non-antalgic. Assessment and Plan Assessment and Plan (1) Complex regional pain syndrome type 1 affecting left lower leg: Plan 43yof who presents for spinal cord stim lead pull. states that she received >50% relief of her pain with the stim trial. will contact us to discuss moving forward with implant. leads were removed with tips intact. insertion site was clean, dry, intact. no signs of infection present.
== END 2024-10-15 13:47 ==
LOC: PM 13:46
PROVIDERS: Visit Provider Nurse Practitioner
DX: G90.522 Complex regional pain syndrome I of left lower limb (principal)
CPT/HCPCS: G0463

== ENCOUNTER 2025-01-21 12:37 | Outpatient (OUT) | payer MEDICARE, MEDICAID, SELFPAY ==
--- NOTE | 2025-01-21 13:37 | P.CN_ITS ---
Consult Note: HPI Data of Consult Patient: known to practice within the last 3 years Consult date: 01/21/25 Requesting Physician: Alfie Dixon MD Primary Care Provider: [facility] Consult Narrative Reason for consult: left foot pain Narrative: 44yof who presents for assessment. notes worsening of left foot pain recently. previously underwent spinal cord stimulator trial, which provided >50% relief. interested in moving forward with implant. denied adverse med side effects. cc:: CC: Alfie Dixon MD Review of Systems ROS Status of ROS 10 or more systems reviewed and unremark able except as noted in history and below [facility] Medical History History of blood transfusion ?Z92.89 - Personal history of other medical treatment (ICD-10) Syncope (2022) ?R55 - Syncope and collapse (ICD-10) Syncope anginosa ?I20.89 - Other forms of angina pectoris (ICD-10) Diabetes ?E11.9 - Type 2 diabetes mellitus without complications (ICD-10) Postoperative nausea and vomiting ?R11.2 - Nausea with vomiting, unspecified (ICD-10) ?Z98.890 - Other specified postprocedural states (ICD-10) Equinus contracture of ankle ?M24.573 - Contracture, unspecified ankle (ICD-10) Chronic osteomyelitis ?M86.60 - Other chronic osteomyelitis, unspecified site (ICD-10) Eczema ?L30.9 - Dermatitis, unspecified (ICD-10) Varicose vein of leg ?I83.90 - Asymptomatic varicose veins of unspecified lower extremity (ICD-10) Neuropathy ?G62.9 - Polyneuropathy, unspecified (ICD-10) Fibromyalgia ?M79.7 - Fibromyalgia (ICD-10) Calcaneal spur ?M77.30 - Calcaneal spur, unspecified foot (ICD-10) Arthritis ?M19.90 - Unspecified osteoarthritis, unspecified site (ICD-10) Pain of left lower extremity ?M79.605 - Pain in left leg (ICD-10) 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 ?G57.32 - Lesion of lateral popliteal nerve, left lower limb (ICD-10) DVT (deep venous thrombosis) (~2019) ?I82.409 - Acute embolism and thrombosis of unspecified deep veins of unspecified lower extremity (ICD-10) Compartment syndrome ?T79.A0XA - Compartment syndrome, unspecified, initial encounter (ICD-10) Plantar fasciitis ?M72.2 - Plantar fascial fibromatosis (ICD-10) Carpal tunnel syndrome ?G56.00 - Carpal tunnel syndrome, unspecified upper limb (ICD-10) Prediabetes ?R73.03 - Prediabetes (ICD-10) Achilles tendinitis ?M76.60 - Achilles tendinitis, unspecified leg (ICD-10) Complex regional pain syndrome of left lower extremity ?G90.522 - Complex regional pain syndrome I of left lower limb (ICD-10) Anxiety ?F41.9 - Anxiety disorder, unspecified (ICD-10) Osteoarthritis ?M19.90 - Unspecified osteoarthritis, unspecified site (ICD-10) Low back pain ?M54.50 - Low back pain, unspecified (ICD-10) Anemia ?D64.9 - Anemia, unspecified (ICD-10) Obesity ?E66.9 - Obesity, unspecified (ICD-10) Acid reflux ?K21.9 - Gastro-esophageal reflux disease without esophagitis (ICD-10) Asthma ?J45.909 - Unspecified asthma, uncomplicated (ICD-10) Hypertension ?I10 - Essential (primary) hypertension (ICD-10) Surgical History S/P epidural steroid injection ?Z92.241 - Personal history of systemic steroid therapy (ICD-10) History of cholecystectomy (1998) ?Z90.49 - Acquired absence of other specified parts of digestive tract (ICD- 10) History of carpal tunnel release ?Z98.890 - Other specified postprocedural states (ICD-10) H/O tubal ligation (12/08/18) ?Z98.51 - Tubal ligation status (ICD-10) History of ankle surgery ?Z98.890 - Other specified postprocedural states (ICD-10) H/O foot surgery ?Z98.890 - Other specified postprocedural states (ICD-10) H/O carpal tunnel repair ?Z98.890 - Other specified postprocedural states (ICD-10) History of delivery ?Z98.891 - History of uterine scar from previous surgery (ICD-10) Family History Other Family history of diabetes mellitus Family history of myocardial infarction Family history of stroke Heart disease Lymphoma Social History Within the past year, how often did you have a drink containing alcohol: monthly or less Smoking status: Former smoker Non-prescribed substance use: denies use 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 Highest level of school completed/degree received: high school graduate Meds Home Medications and Allergies Home Medications ?Medication ?Instructions ?Recorded ?Confirmed ?Type ascorbic acid (vitamin C) 500 mg 500 mg PO BID 05/06/23 10/04/24 History tablet aspirin 325 mg tablet 325 mg PO DAILY 05/06/23 10/08/24 History ferrous sulfate 325 mg (65 mg 325 mg PO DAILY 05/06/23 10/08/24 History iron) tablet hydroxyzine pamoate 25 mg capsule 25 mg PO TID 05/06/23 10/08/24 History lidocaine 5 % topical kit 1 applic topical DAILY 05/06/23 10/08/24 History promethazine 25 mg tablet 25 mg PO Q12H PRN nausea and 05/06/23 10/08/24 History vomiting pyridoxine (vitamin B6) 100 mg 100 mg PO BID 05/06/23 10/08/24 History tablet vitamin B complex (B 1 tab PO DAILY 05/06/23 10/08/24 History Complex-Vitamin B12 tablet) oxycodone-acetaminophen 5 mg-325 1 tab PO QID PRN pain #120 tabs 07/25/24 10/08/24 Rx mg tablet (Percocet) amlodipine 5 mg-olmesartan 20 mg 1 tab PO DAILY 10/04/24 10/08/24 History tablet dulaglutide 3 mg/0.5 mL 3 mg subcut QWEEK 10/04/24 10/08/24 History subcutaneous pen injector (Trulicity) meloxicam 15 mg tablet 15 mg PO DAILY 10/04/24 10/08/24 History omeprazole 20 mg capsule,delayed 20 mg PO DAILY 10/04/24 10/08/24 History release phentermine 37.5 mg tablet 37.5 mg PO DAILY 10/04/24 10/04/24 History tizanidine 4 mg capsule 4 mg PO BID 10/04/24 10/08/24 History oxycodone-acetaminophen 5 mg-325 1 tab PO QID PRN pain #120 tabs 10/15/24 Rx mg tablet (Percocet) naloxone 4 mg/actuation nasal 4 mg intranasal Q2M PRN opioid 10/17/24 Rx spray (Narcan) overdose #2 ea oxycodone-acetaminophen 5 mg-325 1 tab PO QID PRN pain #120 tabs 11/15/24 Rx mg tablet (Percocet) oxycodone-acetaminophen 5 mg-325 1 tab PO QID PRN pain #120 tabs 12/19/24 Rx mg tablet (Percocet) oxycodone-acetaminophen 5 mg-325 1 tab PO QID PRN pain #120 tabs 01/21/25 Rx mg tablet (Percocet) Allergies Allergy/AdvReac Type Severity Reaction Status Date / Time naproxen (From Naprosyn) Allergy Mild Hives Verified 10/08/24 11:04 scallops Allergy edema Verified 10/08/24 11:04 ondansetron (From Zofran) AdvReac Intermediate edema Verified 10/08/24 11:04 cyclobenzaprine (From AdvReac Mild Vomiting Verified 10/08/24 11:04 Flexeril) Exam Narrative Exam Narrative: Psych-alert and oriented x 3.? Attentive and appropriate, constitutionally normal, displays normal mood and affect per situation.? There are no obvious deficits in memory, reasoning, or intellect. Examination of the left lower extremity reveals notable hyperpathia and allodynia.? Notable atrophy and diffuse weakness present in the extremity.? There is notable shiny skin with hair loss and abnormal hair growth denoting trophic changes presently.? Asymmetric color and temperature changes are present which denotes sudomotor changes.? Decreased range of motion and strength is noted in the extremity.? Coordination remains intact.? Gait remains non-antalgic. Assessment and Plan Assessment and Plan (1) Complex regional pain syndrome type 1 affecting left lower leg: Plan 44yof who presents for assessment. failed conservative measures, as noted. given her worsening pain and successful stimulator trial, will have her referred to dr. finn for consideration of spinal cord stim implant. she is in agreement. meds reviewed, no changes. follow up after procedure.
== END 2025-01-21 12:38 | disposition home or self-care (01) ==
PROVIDERS: Visit Provider Anesthesiology
DX: G90.522 Complex regional pain syndrome I of left lower limb (principal)
CPT/HCPCS: G0463

== ENCOUNTER 2025-04-16 09:41 | Outpatient (OUT) | payer MEDICARE, MEDICAID, SELFPAY ==
--- NOTE | 2025-04-16 09:49 | XR_ITS ---
The [address] [address] Patient Name: PEREZ BABB MRN: [id number] date: 1980 Sex: F Assigned Patient Location: [facility] Current Patient Location: [facility] Accession/Order Number: [id number] Exam Date: 04/16/2025 10:45 Report Date: 04/16/2025 10:47 At the request of: PEGGY EDWARDS DPQuyen Procedure: XR foot LT min 3V XR foot LT min 3V 04/16/2025 10:04 AM SIGNS AND SYMPTOMS: ^Pain PROTOCOL: Frontal, lateral, calcaneal, and oblique views of the left foot COMPARISON: 06/26/2024 FINDINGS: There is evidence of fusion across the tibiotalar junction with similar fusion hardware. No hardware complication or malalignment. There are degenerative changes along the tarsometatarsal junctions, the first metatarsophalangeal joint, and the interphalangeal joint of the great toe. This is similar to the prior exam. No fracture or dislocation. No significant soft tissue swelling. There is lateral surface calcaneal spurring. XR/XR foot LT min 3V IMPRESSION: Postoperative changes are redemonstrated consistent with ankle fusion. No hardware complication or change in alignment. Degenerative changes are noted in the forefoot and midfoot as described above. This is similar to the prior study. No acute bony injury. Impression dictated by: Alan Matta M.D. 04/16/2025 10:47 AM Dictation Location: [place] [address] Electronically authenticated by: [id number] Y Date: 04/16/2025 10:47
--- OUTSIDE RECORDS SUMMARY | 2025-04-16 09:51 | XMS_ITS | CCD ---
Author Organization [facility] Care Team Providers Care Table Operator Name Role Phone Raj Loaiza Attending Provider Unavailable [facility] Primary Care Provider Un available Shayy, Lars Attending Provider Unavailable Jase Rosenberg Unavailable DO Raj Loaiza Attending Provider [phone] [facility] Primary Care Provider LUIS Elliott Emergency Provider MD Jase Rosenberg Attending Provider DO Praveen Pearl Emergency Provider [phone] MD Ayan Andrade Emergency Provider DO Raj Loaiza Attending Provider [facility] Primary Care Provider DO Praveen Pearl Emergency Provider [phone] MD Ayan Andrade Emergency Provider DIONNE Garcia Attending Provider MD Jase Breaux Jr Emergency Provider [facility] Primary Care Provider Kenneth [facility] Caitlyn Tuttle Emergency Provider [facility] Primary Care Provider [phone] DO Arnoldo Pérez Emergency Provider DR UZAIR CARTER Admitting Unavailable TERRENCE .DR UZAIR Attending Unavailable NICO GOMEZ Consulting Unavailable [facility] Primary Care Unavaila DR ARIADNA Hardin [...] LIGHT ., DR UZAIR Matute Consulting Unavailable TRINI CARPIO Consulting Unavailable [facility], Services Primary Care Provider LUIS Sandra Emergency Provider DO Lars Guerra Emergency Provider [phone] Marcos Gregory Attending Unava MD Jase Dudley Attending Provider [phone] MD Jase Breaux Jr Emergency Provider DO Teo Heath Attending Provider [phone] ParentDO Marquise ramsey Other Provider [phone] [facility], Services Primary Care Provider [phone] LUIS Sandra Emergency Provider [phone] DO John Luu Referring Provider [phone] [facility] Services Primary Care Provider [phone] DO Teo Heath Attending Provider Parentroxy, DO [place] Other Provider DO John Luu Referring Provider DO John Luu Referring Provider [facility] Services Primary Care Provider DO Teo Heath Attending Provider Self, Referral Attending Provider Unavailable [facility] Services Primary Care Provider [phone] DO John Luu Attending Provider [phone] [facility] Primary Care Provider DO Jovan Hutson Emergency Provider LUIS Sin Emergency Provider LUIS Saravia Ning Quyen Emergency Provider [phone] DO Teo Heath Attending Provider [phone] DO John Luu Referring Provider Raj Loaiza DO Attending Provider [facility] Services Primary Care Provider Teo Heath DO Attending Provider [phone] John Luu DO Referring Provider [facility] Referring Provider Self, Referral Attending Provider Unavailable Elio Martinez DO Emergency Provider [phone] Shayy SKINNER, Lars Tuttle Primary Care Provider Zack SKINNER, Andrius Vytautleola Attending Unavailable Giedraitis MD, Andrius Vytautas Attending Unavailable Giedraitis MD, Andrius Vytautas Attending Unavailable Giedraitis MD, Andrius Vytautas Attending Unavailable Giedraitis , Andrius Vytautas Attending Unavailable Giedraitis , Andrius Vytautas Attending Unavailable Shayy MARRERO, Lars E Primary Care Provider MARIANA MCCRAY Attending Unavailable MARIANA MCCRAY Attending Unavailable MARIANA MCCRAY Attending Unavailable RAJ LOAIZA Attending Unavailable Raj Loaiza DO Attending Provider [facility] Primary Care Provider Ivy White DO Emergency Provider Jase Breaux MD Emergency Provider [phone] Trini Fields MD Emergency Provider Tatyana SKINNER, Sneha Attending Provider John Luu DO Referring Provider [phone] Raj Loaiza DO Other Provider Teo Heath Admitting Unavailable Teo Heath Attending Unavailable John Luu Referring Unavailable [facility] Primary Care Unavaila ble Self, Referral Admitting Unavailable Self, Referral Attending Unavailable [facility] Services Referring Unavaila ble [facility] Services Primary Care Unavaila ble Ketvertis, Sneha Admitting Unavailable Ketvertis, Sneha Attending Unavailable John Luu Referring Unavailable [facility] Services Primary Care Unavaila ble Raj Loaiza Consulting Unavailable Jase Breaux Jr Admitting Unavailable Jase Breaux Jr Attending Unavailable [facility] Services Primary Care Unavaila ble Trini Fields R Admitting Unavailable Trini Fields Attending Unavailable [facility] Services Primary Care Unavaila ble Jovan Hutson M Admitting Unavailable Jovan Hutson M Attending Unavailable [facility] Services Primary Care Unavaila ble Jocy, Agustin Admitting Unavailable Jocy, Agustin Attending Unavailable [facility] Services Primary Care Unavaila ble FaggionatoCyrilNing M Admitting Unavailable FaggNing snyder M Attending Unavailable [facility] Services Primary Care Unavaila ble Tupa, Elio M Admitting Unavailable Tupa Elio M Attending Unavailable [facility] Services Primary Care Unavaila ble Rice Ivy L Admitting Unavailable RiceMykeIvy L Attending Unavailable [facility] Services Primary Care Unavaila ble Unavailable Unavailable Unavailable Allergies Allergy Classification Reported Allergen(s) Allergy Type Date of Onset Reaction(s) Facility (20 sources) cyclobenzaprine ; Translations: [cyclobenzaprin e] Drug Allergy 2 Swelling of Lip/Tongue/Thro at [facility] Comment on above: This patient has had Albuterol before. (20 sources) Naproxen; Translations: [naproxen] Drug Allergy 2 Hives, Unknown [facility] (20 sources) Ondansetron; Translations: [ondansetron] Drug Allergy 2 Swelling of Lip/Tongue/Thro at [facility] (20 sources) Scallop - dietary; Translations: [scallops] Allergy to substance 2 [facility] (5 sources) cyclobenzaprine ; Translations: [Flexeril] Drug Allergy 7 Unknown [facility] (5 sources) Ondansetron; Translations: [Zofran] Drug Allergy 7 Unknown [facility] (2 sources) Naproxen Drug Allergy 7 [facility] (2 sources) Misc-Food; Translations: [Misc-Food] Food allergy (disorder) 7 [facility] (8 sources) Other Propensity to adverse reactions 3 [facility] Medications Current Medications Medication Drug Class(es) Dates Sig (Normalized) Sig (Original) acetaminophen 325 mg oral tablet (2 sources) Start: 04-08-2025 take 2 tablets by mouth every six hours as needed for pain Acetaminophen (Tylenol) 325 mg tablet Active 650 MG PO Every 6 hours as needed for pain 30 5 April 08, 2025 12:00am acetaminophen 325 mg / HYDROcodone bitartrate 5 mg oral tablet (20 sources) Opioid Agonist Start: 03-28-2025 take 1 tablet by mouth every six hours as needed for pain Hydrocodone-Acetami nophen 5-325 mg tablet Active 1 TAB PO Every 6 hours as needed for pain 7 3 March 28, 2025 Start: 11-26-2019 End: 12-26-2020 take 1 tablet by mouth three times daily Hydrocodone-Acetaminophen (Crawford) 5-325 mg tablet Discontinued 1 TAB PO Three times daily 6 2 November 26, 2019 December 26, 2020 4:40pm acetaminophen 325 mg / oxyCODONE hydrochloride 5 mg oral tablet (20 sources) Opioid Agonist Start: 08-23-2024 take 1 tablet by mouth every six hours as needed for pain Oxycodone-Acetaminophen (Percocet) 5-325 mg tablet Active 1 TAB PO Every 6 hours as needed for pain 6 2 August 23, 2024 Start: 06-19-2023 take 1 tablet by bebo th four times daily as needed for pain Oxycodone-Acetaminophen 5-325 mg tablet Active 1 TAB PO Four times daily as needed for Pain June 19, 2023 12:00am Start: 06-19-2023 take 1 tablet by bebo th three times daily as needed oxyCODONE-acetaminophen (Percocet) 5-325 MG tablet Take 1 tablet by mouth 3 (three) times a day as needed. 06/29/2023 Active Start: 09-17-2022 End: 04-18-2023 take 1 tablet by mouth three times daily as needed for pain Oxycodone-Acetaminophen 5-325 mg tablet Discontinued 1 TAB PO Three times daily as needed for Pain September 17, 2022 12:00am April 18, 2023 12:08pm Start: 04-06-2018 End: 05-27-2018 take 1 tablet by mouth every four hours as needed for pain Oxycodone-Acetaminophen 5-325 mg tablet Discontinued 1 - 2 TAB PO Q4H as needed for Pain April 06, 2018 12:00am May 27, 2018 1:26am take 1 tablet by bebo th every six hours Percocet 5-325 MG 1 tablet as needed Orally every 6 hrs Active Albuterol Sulfate (20 sources) beta2-Adrenergic Agonist Start: 11-10-2019 Albut [place] Sulfate Active 2 INH Inhalation Q4H 8.November 10, 2019 12:59am Start: 11-10-2019 Albuterol Sulf ate 90 mcg/actuation HFA aerosol inhaler Active 2 INH INHALATION Q4H as needed for shortness of breath or wheezing 8.November 10, 2019 1:00am Start: 08-26-2017 take [...] 26, 2017 12:00am December 26, 2020 4:47pm ascorbic acid 250 mg oral tablet (8 sources) Vitamin C take 2 tablets by mouth in the morning Ascorbic Acid (vitamin C) 250 MG tablet Take 500 mg by mouth in the morning. Active aspirin 81 mg oral tablet (20 sources) Platelet Aggregation Inhibitor, Nonsteroidal Anti-inflammatory Drug Start: 04-21-2018 take 81 mg by mouth once daily Aspirin Active 81 MG Oral Daily April 21, 2018 10:53pm Start: 04-21-2018 take 1 tablet by bebo th once daily Aspirin 81 mg tablet,chewable Active 81 MG PO Daily April 21, 2018 12:00am benzocaine 15 mg / menthol 2.6 mg oral lozenge (2 sources) Standardized Chemical Allergen Start: 04-08-2025 Benzocaine-Menthol (Cepacol Sore Throat (Cliff-Men)) 15-2.6 mg lozenge Active 1 LOZENGE MUCOUS MEM Every 4 hours as needed for sore throat 32 5 April 08, 2025 12:00am cholecalciferol 0.025 mg oral capsule (8 sources) Vitamin D take 1 capsule by mouth in the morning cholecalciferol (Vitamin D-3) 25 MCG (1000 UT) capsule Take 1,000 Units by mouth in the morning. Active diclofenac potassium 50 mg oral tablet (20 sources) Nonsteroidal Anti-inflammatory Drug Start: 04-18-2023 take 50 mg by mouth once daily Diclofenac Potassium Active 50 MG PO Daily April 18, 2023 12:00am Start: 12-26-2020 End: 07-06-2022 take 1 tablet by mouth twice daily Diclofenac Sodium 50 mg tablet,delayed release (DR/EC) Discontinued 50 MG PO Twice daily December 26, 2020 1:00am July 06, 2022 10:13pm Dulaglutide (Trulicity) 3 mg /0.5 mL pen injector (10 sources) Start: 07-10-2024 Dulaglutide (T rulicity) 3 mg/0.5 mL pen injector Active 3 MG SUBCUT every week July 09, 2024 11:00pm Start: 07-10-2024 Dulaglutide (T rulicity) 3 mg/0.5 mL pen injector Active 3 MG SUBCUT every week July 10, 2024 12:00am Dulaglutide (Trulicity) 4.5 MG/0.5ML solution auto-injector (8 sources) Dulaglutide (Trulicity) 4.5 MG/0.5ML solution auto-injector Inject under the skin Active DULoxetine 60 mg delayed release oral capsule (3 sources) Serotonin and Norepinephrine Reuptake Inhibitor take 1 capsule by mouth every twenty-four hours DULoxetine HCl 60 MG 1 capsule Orally Once a day Active ferrous sulfate 325 mg oral tablet (20 sources) Start: 12-09-19 take 1 tablet by mouth once daily Ferrous Sulfate 325 mg (65 mg iron) tablet Active 325 MG PO Daily December 09, 2018 1:00am take 1 tablet by mouth twice yan ly Ferrous Sulfate 325 (65 Fe) MG 1 tablet Orally bid Active hydrOXYzine pamoate 25 mg oral capsule (8 sources) Antihistamine Start: 12-27-2022 hydrOXYzine pamoate (Vistaril) 25 MG capsule Take 25 mg by mouth every 12 (twelve) hours if needed. 12/27/2022 Active ibuprofen 800 mg oral tablet (20 sources) Nonsteroidal Anti-inflammatory Drug Start: 12-05-2024 take 1 tablet by mouth three times daily as needed for pain Ibuprofen 800 mg tablet Active 800 MG PO Three times daily as needed for Pain December 05, 2024 1:00am Start: 12-09-2018 End: 09-17-2019 take 1 tablet by mouth every eight hours as needed for pain Ibuprofen 800 mg tablet Discontinued 800 MG PO Q8H as needed for pain December 09, 2018 1:00am September 17, 2019 9:56pm lidocaine 40 mg/ml topical cream (3 sources) [...] 1:00am loperamide hydrochloride 2 mg oral capsule (10 sources) Opioid Agonist Start: 07-10-2024 take 1 capsule by mouth every six hours as needed Loperamide (Imodium A-D) 2 mg capsule Active 2 MG PO Every 6 hours as needed for loose stool 20 5 July 10, 2024 12:00am meloxicam 15 mg oral tablet (20 sources) Nonsteroidal Anti-inflammatory Drug Start: 07-10-2024 take 1 tablet by mouth once daily Meloxicam 15 mg tablet Active 15 MG PO Daily July 10, 2024 12:00am Start: 08-26-2017 End: 05-27-2018 take 1 tablet by mouth once daily Meloxicam (Mobic) 15 mg Tablet Discontinued 15 MG PO Daily August 26, 2017 12:00am May 27, 2018 1:25am metaxalone 400 mg oral tablet (5 sources) Start: 12-05-2024 take 1 tablet by mouth three times daily as needed for pain Metaxalone 400 mg tablet Active 800 MG PO Three times daily as needed for muscle pain December 05, 2024 1:00am methocarbamol 750 mg oral tablet (3 sources) Muscle Relaxant take 1 tablet by mouth every four hours Methocarbamol 750 MG 1 tablet Orally every 4 hrs Active omeprazole 20 mg delayed release oral capsule (20 sources) Proton Pump Inhibitor Start: 07-10-2024 take 1 capsule by mouth once daily Omeprazole 20 mg capsule,delayed release(DR/EC) Active 20 MG PO Daily July 10, 2024 12:00am FreeTextSi capsule 30 minutes before morning meal Orally Once a day; Note: Source Status: Taking; Provider: Shakira Laguna ( ) oxyCODONE hydrochloride 5 mg oral tablet (3 sources) Opioid Agonist oxyCODONE HCl 5 MG (Schedule II Drug) TAKE 1 TABLET BY MOUTH EVERY 6 HOURS UP TO 3 TIMES DAILY Oral for 30 Active phentermine hydrochloride 37.5 mg oral tablet (8 sources) Sympathomimetic Amine Anorectic take 1 tablet by mouth before mealtime phentermine (Adipex-P) 37.5 MG tablet Take 37.5 mg by mouth in the morning. Take before meals. Active potassium chloride 10 meq extended release oral capsule (20 sources) Start: 11-14-2018 take 1 capsule by mouth once daily Potassium Chloride 10 mEq capsule, extended release Active 10 MEQ PO Daily November 14, 2018 1:00am pregabalin (1 source) Lyrica Active promethazine hydrochloride 25 mg oral tablet (20 sources) Phenothiazine Start: 07-10-2024 take 1 tablet by mouth three times daily as needed for nausea and vomiting Promethazine 25 mg tablet Active 25 MG PO Three times daily as needed for nausea and vomiting 11 04July 10, 2024 12:00am Start: 01-04-2023 End: 06-19-2023 take 1 tablet by mouth every six hours as needed for nausea and vomiting Promethazine 25 mg tablet Discontinued 25 MG PO Q6H as needed for nausea and vomiting January 04, 2023 1:00am June 19, 2023 12:33am Start: 04-21-2018 End: 11-14-2018 take 1 tablet by mouth every four to six hours as needed for nausea and vomiting Promethazine 25 mg tablet Discontinued 25 MG PO EVERY 4-6 HOURS as needed for nausea and vomiting June 24, 2018 12:00am November 14, 2018 6:56pm Start: 11-03-2017 End: 04-06-2018 take 1 tablet by mouth every four to six hours as needed for nausea and vomiting Promethazine 25 mg tablet Discontinued 25 MG PO EVERY 4-6 HOURS as needed for nausea and vomiting November 03, 2017 1:00am April 06, 2018 4:04pm promethazine (Phenergan) 6.25 MG split tablet (8 sources) Start: 01-04-2023 take 4 tablets by mouth every six hours as needed promethazine (Phenergan) 6.25 MG split tablet Take 25 mg by mouth every 6 (six) hours if needed. 01/04/2023 Active Rivaroxaban (20 sources) Factor Xa Inhibitor [...] 30 Active spironolactone 25 mg oral tablet (20 sources) Aldosterone Antagonist Start: 06-19-2023 take 1 tablet by mouth twice daily Spironolactone 25 mg tablet Active 25 MG PO Twice daily June 19, 2023 12:00am take 1 tablet by mouth once spir onolactone (Aldactone) 25 MG tablet Take 25 mg by mouth 1 (one) time. Active tiZANidine 4 mg oral tablet (8 sources) Central alpha-2 Adrenergic Agonist Start: 06-10-2023 take 1 tablet by mouth every twelve hours tiZANidine (Zanaflex) 4 MG tablet Take 4 mg by mouth every 12 (twelve) hours. 06/10/2023 Active Completed/Discontinued Medications Medication Drug Class(es) Dates Sig (Normalized) Sig (Original) acetaminophen 300 mg / butalbital 50 mg / caffeine 40 mg oral capsule (20 sources) Barbiturate, Central Nervous System Stimulant, Methylxanthine Start: 11-10-2019 End: 06-19-2023 take 1 capsule by mouth every four to six hours as needed for headache Butalbital-Acetam inophen-Caff (Fioricet) 50-300-40 mg capsule Discontinued 1 CAP PO EVERY 4-6 HOURS as needed for headache 60 November 10, 2019 1:00am June 19, 2023 12:34am Albuterol Sulfate 90 mcg/actuation Hfa Aerosol Inhaler (6 sources) Start: 08-26-2017 End: 12-26-2020 take 1 puff(s) by inhalation once daily as needed Albuterol Sulfate 90 mcg/actuation Hfa Aerosol Inhaler Discontinued 1 - 2 PUFF INHALATION Daily as needed for Shortness Of Breath August 26, 2017 12:00am December 26, 2020 4:47pm Start: 08-26-2017 End: 12-26-2020 take 1 puff(s) by inhalation once daily as needed Albuterol Sulfate 90 mcg/actuation Hfa Aerosol Inhaler Discontinued 1 - 2 PUFF INHALATION Daily as needed for Shortness Of Breath August 25, 2017 11:00pm December 26, 2020 3:47pm amoxicillin 875 mg / clavulanate 125 mg oral tablet (20 sources) Penicillin-class Antibacterial Start: 01-08-2023 End: 01-19-2023 take 1 tablet by mouth twice daily Amoxicillin-Pot Clavulanate 875-125 mg tablet Discontinued 1 TAB PO Twice daily January 08, 2023 1:00am January 19, 2023 8:26am Start: 05-30-2021 End: 08-23-2022 take 1 tablet by mouth twice daily Amoxicillin-Pot Clavulanate (Augmentin) 875-125 mg tablet Discontinued 1 TAB PO Twice daily May 30, 2021 12:00am August 23, 2022 7:21am azithromycin 500 mg oral tablet (20 sources) Macrolide Antimicrobial Start: 02-27-2025 End: 03-19-2025 take 1 tablet by mouth once daily azithromycin (Zithromax) 500 MG tablet Indications: Acute vaginitis Take 1 tablet (500 mg) by mouth Daily for 10 days 10 tablet 1 02/27/2025 03/19/2025 Discontinued (Therapy completed) Start: 10-30-2021 End: 08-23-2022 take 1 tablet by mouth once daily Azithromycin 250 mg tablet Discontinued 250 MG PO Daily October 30, 2021 1:00am August 23, 2022 7:21am Take one tab daily for 4 days cephalexin 500 mg oral capsule (20 sources) Cephalosporin Antibacterial Start: 11-14-2018 End: 11-21-2018 take 1 capsule by mouth twice daily Cephalexin 500 mg capsule Discontinued 500 MG PO Twice daily 14 November 14, 2018 1:00am November 20, 2018 1:00am November 21, 2018 1:02am Start: 06-24-2018 End: 07-09-2018 take 1 capsule by mouth every eight hours Cephalexin (Keflex) 500 mg capsule Discontinued 500 MG PO Q8H 21 June 24, 2018 12:00am July 09, 2018 4:05am clindamycin 150 mg oral capsule (19 sources) Lincosamide Antibacterial Start: 01-19-2023 End: 06-19-2023 take 3 capsules by mouth every eight hours Clindamycin Hcl 150 mg capsule Discontinued 450 MG PO Q8H 63 January 19, 2023 1:00am June 19, 2023 12:34am Start: 01-19-2023 End: 06-19-2023 take 450 mg by mouth every eight hours Clindamycin Hcl Discontinued 450 MG PO Q8H 63 January 19, 2023 1:00am June 19, 2023 12:34am clomiPHENE citrate 50 mg oral tablet (20 sources) Estrogen Agonist/Antagonist Start: 11-03-2017 End: 05-27-2018 take 2 tablets by mouth once daily Clomiphene Citrate 50 mg tablet Discontinued 100 MG PO Daily November 03, 2017 1:00am May 27, 2018 1:25am Start: 11-03-2017 End: 05-27-2018 take 100 mg by mouth once daily Clomiphene Citrate Discontinued 100 MG PO Daily November 03, 2017 1:00am May 27, 2018 1:25am codeine phosphate 2 mg/ml / phenylephrine hydrochloride 1 mg/ml / promethazine hydrochloride 1.25 mg/ml oral solution (20 sources) Opioid Agonist, Phenothiazine, alpha-1 Adrenergic Agonist Start: 08-26-2017 End: 11-03-2017 take 1 mL by mouth every four to six hours as needed for cough Kqszevlqrhoa-Dgxylqvdn-Tsqklqj (Promethazine Vc-Codeine) 6.25-5-10 mg/5 mL syrup Discontinued 5 ML PO EVERY 4-6 HOURS as needed for cough 120 August 26, 2017 12:00am November 03, 2017 9:57am Cyanocobalamin (Vitamin B-12) 1,000 mcg/mL Syringe (6 sources) Start: 12-26-2020 End: 04-18-2023 Cyanocobalamin (Vitamin B-12 ) 1,000 mcg/mL Syringe Discontinued 0 .ROUTE .COMPLEX December 26, 2020 1:00am April 18, 2023 12:08pm 1000 sub q at doctor's office Start: 12-26-2020 End: 04-18-2023 Cyanocobalamin (Vitamin B-12 ) 1,000 mcg/mL Syringe Discontinued 0 .ROUTE .COMPLEX December 26, 2020 12:00am April 18, 2023 11:08am 1000 sub q at doctor's office dextromethorphan hydrobromide 3 mg/ml / promethazine hydrochloride 1.25 mg/ml oral solution (20 sources) Phenothiazine, Uncompetitive N-fnlbpk-V-aspartate Receptor Antagonist, Sigma-1 Agonist Start: 01-08-2023 End: 06-19-2023 take 1 mL by mouth every six hours as needed for cough Promethazine-Dm 6.25-15 mg/5 mL syrup Discontinued 10 ML PO Q6H as needed for cough 118 January 08, 2023 1:00am June 19, 2023 12:33am dicyclomine hydrochloride 20 mg oral tablet (20 sources) Anticholinergic Start: 01-25-2022 End: 06-19-2023 take 1 tablet by mouth three times daily as needed for pain Dicyclomine 20 mg tablet Discontinued 20 MG PO Three times daily as needed for pain January 25, 2022 1:00am June 19, 2023 12:34am fluticasone propionate 0.05 mg/actuat metered dose nasal spray (20 sources) Corticosteroid Start: 08-26-2017 End: 04-06-2018 Fluticasone Propionate (Flonase Allergy Relief) 50 mcg/actuation spray,suspension Discontinued 100 MCG INTRANASAL Daily as needed for nasal congestion August 26, 2017 12:00am April 06, 2018 4:04pm folic acid 1 mg oral tablet (20 sources) Start: 04-21-2018 End: 04-22-2019 take 1 tablet by mouth once daily Folic Acid 1 mg tablet Discontinued 1 MG PO Daily April 21, 2018 12:00am April 22, 2019 10:16am gabapentin 100 mg oral capsule (20 sources) Anti-epileptic Agent Start: 05-26-2023 End: 01-10-2025 gabapentin (Neurontin) 100 MG capsule TAKE 3 CAPSULES IN THE MORNING AND 2 CAPSULES AFTER NOON AND 3 CAPSULES AT NIGHT 05/26/2023 01/10/2025 Discontinued (Therapy completed) Start: 09-17-2022 take 200 mg by mouth three times daily Gabapentin Active 200 MG PO Three times daily September 17, 2022 12:00am Start: 04-06-2018 End: 05-27-2018 take 1 capsule by mouth three times daily Gabapentin 100 mg capsule Discontinued 100 MG PO Three times daily April 06, 2018 12:00am May 27, 2018 1:25am ketorolac tromethamine 10 mg oral tablet (20 sources) Nonsteroidal Anti-inflammatory Drug, Cyclooxygenase Inhibitor Start: 01-08-2023 End: 06-19-2023 take 1 tablet by mouth every six hours as needed for pain Ketorolac 10 mg tablet Discontinued 10 MG PO Q6H as needed for pain January 08, 2023 1:00am June 19, 2023 12:33am meclofenamate 100 mg oral capsule (20 sources) Start: 04-22-2019 End: 06-19-2023 take 1 capsule by mouth three times daily Meclofenamate 100 mg capsule Discontinued 100 MG PO Three times daily December 26, 2020 4:44pm June 19, 2023 12:33am metFORMIN hydrochloride 1000 mg oral tablet (20 sources) Biguanide Start: 12-26-2020 End: 08-23-2022 take 1 tablet by mouth twice daily Metformin 1,000 mg Tablet Discontinued 1000 MG PO Twice daily December 26, 2020 1:00am August 23, 2022 7:21am Start: 04-21-2018 End: 04-22-2019 take 1 tablet by mouth twice daily Metformin 500 mg tablet Discontinued 500 MG PO Twice daily April 21, 2018 12:00am April 22, 2019 10:16am methylPREDNISolone 4 mg oral tablet (20 sources) Corticosteroid Start: 09-17-2019 End: 10-02-2019 take 1 tablet by mouth once Methylprednisolone (Medrol (Dom)) 4 mg tablets,dose pack Discontinued 0 PO .COMPLEX September 17, 2019 12:00am October 02, 2019 5:56pm orally per package directions nabumetone 750 mg oral tablet (20 sources) Nonsteroidal Anti-inflammatory Drug Start: 07-06-2022 End: 08-23-2022 take 1 tablet by mouth twice daily Nabumetone 750 mg tablet Discontinued 750 MG PO Twice daily July 06, 2022 12:00am August 23, 2022 7:22am ondansetron 4 mg disintegrating oral tablet (20 sources) Serotonin-3 Receptor Antagonist Start: 01-25-2022 End: 08-23-2022 take 1 tablet by mouth every eight hours as needed for nausea and vomiting Ondansetron 4 mg tablet,disintegrating Discontinued 4 MG PO Q8H as needed for nausea and vomiting January 25, 2022 1:00am August 23, 2022 7:23am Start: 11-03-2017 End: 11-18-2017 take 1 tablet by mouth every eight hours as needed for nausea Ondansetron (Zofran Odt) 4 mg tablet,disintegrating Discontinued 4 MG PO Q8H as needed for nausea November 03, 2017 1:00am November 18, 2017 6:13pm 12 hr orphenadrine citrate 100 mg extended release oral tablet (20 sources) Muscle Relaxant Start: 11-26-2019 End: 12-26-2020 take 1 tablet by mouth twice daily Orphenadrine Citrate 100 mg tablet extended release Discontinued 100 MG PO Twice daily November 26, 2019 1:00am December 26, 2020 4:43pm oseltamivir 75 mg oral capsule (20 sources) Neuraminidase Inhibitor Start: 11-17-2022 End: 01-04-2023 take 1 capsule by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 [facility] Comment on above: Performed By: #### C BC, BMP, PT, PTT, HEPATIC, LIPASE #### [address] RBC (Bld) [#/Vol] 5.55 10*6/uL High 3.60-5.00 [facility] Comment on above: Performed By: #### C BC, BMP, PT, PTT, HEPATIC, LIPASE #### [address] WBC (Bld) [#/Vol] 10.3 10*3/uL Normal 3.8-11.6 [facility] Comment on above: Performed By: #### C BC, BMP, PT, PTT, HEPATIC, LIPASE #### [address] Comprehensive Metabolic Pane susan 04-03-2025 Albumin [Mass/Vol] 4.0 g/dL Normal 3.5-5.7 [facility] Comment on above: Performed By: #### C BC, BMP, PT, PTT, HEPATIC, LIPASE #### [address] Albumin/Globulin [Mass ratio] 1.2 {ratio} Normal [facility] Comment on above: Performed By: #### C BC, BMP, PT, PTT, HEPATIC, LIPASE #### [address] ALP [Catalytic activity/Vol] 100 U/L Normal 34-104 [facility] Comment on above: Performed By: #### C BC, BMP, PT, PTT, HEPATIC, LIPASE #### [address] ALT [Catalytic activity/Vol] 17 U/L Normal 7-52 [facility] Comment on above: Performed By: #### C BC, BMP, PT, PTT, HEPATIC, LIPASE #### [address] Anion gap [Moles/Vol] 9.4 mmol/L Normal 6.0-15.0 [facility] Comment on above: Performed By: #### C BC, BMP, PT, PTT, HEPATIC, LIPASE #### [address] AST [Catalytic activity/Vol] 11 U/L Low 13-39 [facility] Comment on above: Performed By: #### C BC, BMP, PT, PTT, HEPATIC, LIPASE #### [address] Bilirubin [Mass/Vol] 0.6 mg/dL Normal 0.3-1.0 [facility] Comment on above: Performed By: #### C BC, BMP, PT, PTT, HEPATIC, LIPASE #### [address] Calcium [Mass/Vol] 9.1 mg/dL Normal 8.6-10.3 [facility] Comment on above: Performed By: #### C BC, BMP, PT, PTT, HEPATIC, LIPASE #### [address] Chloride [Moles/Vol] 105 mmol/L Normal 98-107 [facility] Comment on above: Performed By: #### C BC, BMP, PT, PTT, HEPATIC, LIPASE #### [address] CO2 [Moles/Vol] 29.0 mmol/L Normal 21.0-31.0 [facility] Comment on above: Performed By: #### C BC, BMP, PT, PTT, HEPATIC, LIPASE #### [address] Creatinine [Mass/Vol] 0.83 mg/dL Normal 0.60-1.20 [facility] Comment on above: Performed By: #### C BC, BMP, PT, PTT, HEPATIC, LIPASE #### [address] Creatinine Clr Calc Pharmacy 111.81 Normal [facility] Comment on above: Result Comment: PERF ORMED BY: [place] [address] PATHOLOGIST INDUSTRIAL SERVICE TECHNICIAN GALI WISE M.D. Performed By: #### C BC, BMP, PT, PTT, HEPATIC, LIPASE #### [address] GFR/1.73 sq M.predicted MDRD (S/P/Bld) [Vol rate/Area] mL/min/{1.73_m2} Normal [facility] Comment on above: Performed By: #### C BC, BMP, PT, PTT, HEPATIC, LIPASE #### [address] Globulin (S) [Mass/Vol] 3.3 g/dL Normal T he [facility] Comment on above: Performed By: #### C BC, BMP, PT, PTT, HEPATIC, LIPASE #### [address] Glucose [Mass/Vol] 90 mg/dL Normal 70-100 [facility] Comment on above: Result Comment: [place] Glucose Reference Range is dependent on time and content of last meal. Glucose of more than 200 mg/dL in a nonstressed, ambulatory subject supports the diagnosis of Diabetes Mellitus. ADA recommended reference range Performed By: #### C BC, BMP, PT, PTT, HEPATIC, LIPASE #### [address] Potassium [Moles/Vol] 3.4 mmol/L Low 3.5-5.1 [facility] Comment on above: Performed By: #### C BC, BMP, PT, PTT, HEPATIC, LIPASE #### [address] Protein [Mass/Vol] 7.3 g/dL Normal 6.4-8.9 [facility] Comment on above: Performed By: #### C BC, BMP, PT, PTT, HEPATIC, LIPASE #### [facility] [address] Sodium [Moles/Vol] 140 mmol/L Normal 136-145 [facility] Comment on above: Performed By: #### C BC, BMP, PT, PTT, HEPATIC, LIPASE #### [facility] [address] Urea nitrogen [Mass/Vol] 7 mg/dL Normal 7-25 [facility] Comment on above: Performed By: #### C BC, BMP, PT, PTT, HEPATIC, LIPASE #### [address] Creatinine [Mass/volume] in Serum or PlasmaOrdered By: Jase Breaux on 04-03-2025 Creatinine [Mass/Vol] Creatinine [Mass/v olume] in Serum or Plasma 0.60-1.20 [facility] ECG 12 lead ECGon 04-03-2025 ECG 12 lead ECG [facility] [place] [address] Electrocardiograph Report Signed Patient: Loy Hastings MR#: [id number] : 1980 Acct:[id number] Age/Sex: 44 / F ADM Date: 04/03/25 Loc: ER Room: Type: [facility] ER Attending Dr: Ordering Provider: Jase Breaux Jr, MD Date of Service: 04/03/2506/21/304 ECG/ECG 12 lead ECG: Extremity Problem, Nontraumatic Copies to: Test Reason : Blood Pressure : */* mmHG Vent. Rate : 104 BPM Atrial Rate : 104 BPM P-R Int : 166 ms QRS Dur : 88 ms QT Int : 340 ms P-R-T Axes : 76 93 39 degrees QTcB Int : 447 ms Sinus tachycardia Possible Left atrial enlargement Rightward axis Low voltage QRS Cannot rule out Anterior infarct , age undetermined Abnormal ECG When compared with ECG of 10-Jul-2024 18:56, No significant change was found Confirmed by Lee Burnette ([id number]) on 04/04/2025 9:37:25 AM Referred By: Electronically Signed By: Lee Burnette Transcribed By: MUS Signed By Lee Burnette MD 04/04/25 0937 Normal [facility] Eosinophils Auto (Bld) [#/Vo l]Ordered By: Jase Breaux on 04-03-2025 Eosinophils (Bld) [#/Vol] Automated eosinophil count 0.0-0.45 [facility] Eosinophils/100 WBC Auto (Bl d)Ordered By: Jase Breaux on 04-03-2025 Eosinophils/100 WBC (Bld) Automated eosinophil % . [facility] Erythrocyte distribution wid th Auto (RBC) [Ratio]Ordered By: Jase Breaux on 04-03-2025 Erythrocyte distribution width (RBC) [Ratio] Erythrocyte distribution width [Ratio] by Automated count 11.9-15.3 [facility] Globulin Calc (S) [Mass/Vol] Ordered By: Jase Breaux on 04-03-2025 Globulin (S) [Mass/Vol] Serum globulin m easurement by calculation (mass/volume) [facility] Glucose [Mass/volume] in Ser um or PlasmaOrdered By: Jase Breaux on 04-03-2025 Glucose [Mass/Vol] Glucose [Mass/volume ] in Serum or Plasma 70-100 [facility] Comment on above: ADA recommended refe rence rangeRandom Glucose Reference Range is dependent on time and content of last meal. Glucose of more than 200 mg/dL in a nonstressed, ambulatory subject supports the diagnosis of Diabetes Mellitus. Hematocrit Auto (Bld) [Volum e fraction]Ordered By: Jase Breaux on 04-03-2025 Hematocrit (Bld) [Volume fraction] Hematocrit [Volume Fraction] of Blood by Automated count 34.0-46.4 [facility] Hemoglobin [Mass/volume] in BloodOrdered By: Jase Breaux on 04-03-2025 Hemoglobin (Bld) [Mass/Vol] Hemoglobin [Mass/volume] in Blood 11.8-15.4 [facility] Laboratory - Microbiology an d Antimicrobial susceptibilityOrdered By: Jase Breaux on 04-03-2025 Bacteria identified Cx Nom (Bld) NO GROWTH 5 DAYS [facility] Lactate [Moles/volume] in Se rum or PlasmaOrdered By: Jase Breaux on 04-03-2025 Lactate [Moles/Vol] Lactate [Moles/volum e] in Serum or Plasma 0.5-1.9 [facility] Comment on above: Lactic Acid referenc e range has been updated to 0.5 1.9 mmol/L and the critical range of 2.0 or greater. Lactic Acidon 04-03-2025 Lactate [Moles/Vol] 0.7 mmol/L Normal 0.5-1.9 [facility] Comment on above: Result Comment: Lact ic Acid reference range has been updated to 0.5 ? 1.9 mmol/L and the critical range of 2.0 or greater. PERFORMED BY: [facility] [address] [place] [address] PATHOLOGIST INDUSTRIAL SERVICE TECHNICIAN GALI WISE M.D. Performed By: #### C BC, BMP, PT, PTT, HEPATIC, LIPASE #### [facility] [address] Leukocytes [#/volume] correc abdias for nucleated erythrocytes in Blood by Automated counOrdered By: Jase Breaux on 04-03-2025 WBC corrected for nucl RBC Auto (Bld) [#/Vol] Leukocytes [#/volume] corrected for nucleated erythrocytes in Blood by Automated coun 3.8-11.6 [facility] Lymphocytes Auto (Bld) [#/Vo l]Ordered By: Jase Breaux on 04-03-2025 Lymphocytes (Bld) [#/Vol] Lymphocytes [#/volume] in Blood by Automated count 1.00-4.8 [facility] Lymphocytes/100 WBC Auto (Bl d)Ordered By: Jase Breaux on 04-03-2025 Lymphocytes/100 WBC (Bld) Lymphocytes/100 leukocytes in Blood by Automated count . [facility] MCH Auto (RBC) [Entitic mass ]Ordered By: Jase Breaux on 04-03-2025 MCH (RBC) [Entitic mass] MCH [Entitic mass] by Automated count 24.7-34.3 [facility] MCHC Auto (RBC) [Mass/Vol]Or dered By: Jase Breaux on 04-03-2025 MCHC (RBC) [Mass/Vol] MCHC [Mass/volume] by Automated count 32.0-35.0 [facility] MCV Auto (RBC) [Entitic vol] Ordered By: Jase Breaux on 04-03-2025 MCV (RBC) [Entitic vol] MCV [Entitic vol ume] by Automated count Low 80-100 [facility] Monocyte distribution width [Entitic volume] in Blood by AutomatedOrdered By: Jase Breaux on 04-03-2025 Monocyte distribution width Auto (Bld) [Entitic vol] Monocyte distribution width [Entitic volume] in Blood by Automated High 0.00-20.00 [facility] Comment on above: For adults in ED, MD W > 20.0 may be associated with a higher risk of sepsis during the first 12 hrs of hospital admission Monocytes Auto (Bld) [#/Vol] Ordered By: Jase Breaux on 04-03-2025 Monocytes (Bld) [#/Vol] Automated blood monocyte count 0.0-0.8 [facility] Monocytes/100 WBC Auto (Bld) Ordered By: Jase Breaux on 04-03-2025 Monocytes/100 WBC (Bld) Automated monocyte % . [facility] Neutrophils Auto (Bld) [#/Vo l]Ordered By: Jase Breaux on 04-03-2025 Neutrophils (Bld) [#/Vol] Neutrophils [#/volume] in Blood by Automated count 1.8-7.7 [facility] Neutrophils/100 WBC Auto (Bl d)Ordered By: Jase Breaux on 04-03-2025 Neutrophils/100 WBC (Bld) Automated neutrophil % . [facility] No Panel InformationOrdered By: Jase Breaux on 04-03-2025 Estimated GFR (CKD-EPI) > 60.0 mL/Min [facility] Creatinine Clearance (Chem 111.81 [facility] Nucleated erythrocytes [Pres ence] in Blood by Automated countOrdered By: Jase Breaux on 04-03-2025 Nucleated RBC Auto Ql (Bld) Nucleated erythrocytes [Presence] in Blood by Automated count 0-0.5 [facility] Platelet mean volume Auto (B ld) [Entitic vol]Ordered By: Jase Breaux on 04-03-2025 Platelet mean volume (Bld) [Entitic vol] Platelet mean volume [Entitic volume] in Blood by Automated count 6.3-10.7 [facility] Platelets Auto (Bld) [#/Vol] Ordered By: Jase Breaux on 04-03-2025 Platelets (Bld) [#/Vol] Platelets [#/vol ume] in Blood by Automated count 150-450 [facility] Potassium [Moles/volume] in Serum or PlasmaOrdered By: Jase Breaux on 04-03-2025 Potassium [Moles/Vol] Potassium [Moles/v olume] in Serum or Plasma Low 3.5-5.1 [facility] Protein [Mass/volume] in Ser um or PlasmaOrdered By: Jase Breaux on 04-03-2025 Protein [Mass/Vol] Protein [Mass/volume ] in Serum or Plasma 6.4-8.9 [facility] RBC Auto (Bld) [#/Vol]Ordere d By: Jase Breaux on 04-03-2025 RBC (Bld) [#/Vol] Erythrocytes [#/volu me] in Blood by Automated count High 3.60-5.00 [facility] Serum or plasma albumin/glob ulin mass ratioOrdered By: Jase Breaux on 04-03-2025 Albumin/Globulin [Mass ratio] Serum or plasma albumin/globulin mass ratio [facility] Serum or plasma anion gap de terminationOrdered By: Jase Breaux on 04-03-2025 Anion gap [Moles/Vol] Serum or plasma an ion gap determination 6.0-15.0 [facility] Sodium [Moles/volume] in Ser um or PlasmaOrdered By: Jase Breaux on 04-03-2025 Sodium [Moles/Vol] Sodium [Moles/volume ] in Serum or Plasma 136-145 [facility] Urea nitrogen [Mass/volume] in Serum or PlasmaOrdered By: Jase Breaux on 04-03-2025 Urea nitrogen [Mass/Vol] Urea nitrogen [Mass/volume] in Serum or Plasma 7-25 [facility] WBC Auto (Bld) [#/Vol]Ordere d By: Jase Breaux on 04-03-2025 WBC (Bld) [#/Vol] Leukocytes [#/volume ] in Blood by Automated count 3.8-11.6 [facility] XR chest 1V portableon 04-03 XR chest 1V portable [address] [address] XRay Report Signed Patient: Loy Hastings MR#: [id number] : 1980 Acct:[id number] Age/Sex: 44 / F ADM Date: 04/03/25 Loc: ER Room: Type: [facility] ER Attending Dr: Copies to: Jase Breaux Jr, MD Ordering Provider: Jase Breaux Jr, MD Date of Service: 04/03/25 XR/XR chest 1V portable: Extremity Problem, Nontraumatic SINGLE VIEW CHEST CLINICAL HISTORY: Body aches for one day. COMPARISON: Chest 05/31/2023 FINDINGS: Heart normal in size. Lungs are clear. No free air. XR/XR chest 1V portable IMPRESSION: NO ACUTE FINDINGS Impression dictated by: Marquise Mendenhall Jr., D.O. 04/03/2025 8:40 AM Dictation Location: [place] [address] Transcribed By: [facility] 04/03/25 0840 Dictated By: Marquise Mendenhall Jr, DO 04/03/25 0839 Signed By: 04/03/25 0840 Normal [facility] X-ray reportOrdered By: Ralph Mendenhall on 03-28-2025 Study report [facility] [place] [address] XRay Report Signed Patient: Loy Hastings MR#: [id number] : 1980 Acct:[id number] Age/Sex: 44 / F ADM Date: 5 Loc: ER Room: Type: [facility] ER Attending Dr: Copies to: Ivy White Do~ Ordering Provider: Ivy White Do Date of Service: 03/28/25 XR/XR foot LT min 3V*: Extremity Injury, Lower LEFT FOOT - 3 views CLINICAL HISTORY: Injury to left foot. Now with pain COMPARISON: Left foot 03/10/2021 FINDINGS: Soft tissue swelling is present. Bones are grossly demineralized. Ankle fusionis partially visualized without hardware complication. Scattered moderate degenerative changes with plantar spurring. No bony erosions. XR/XR foot LT min 3V* IMPRESSION: MODERATE DEGENERATIVE CHANGES INVOLVING THE LEFT FOOT WITHOUT ACUTE BONY PROCESS. DIFFUSE SOFT TISSUE SWELLING. Impression dictated by: Marquise Mendenhall Jr., D.O. 03/28/2025 9:08 AM Dictation Location: [facility]22 Transcribed By: [facility] 03/28/25 09 Dictated By: Marquise Mendenhall Jr, DO 03/28/25 09 Signed By: 03/28/25 0908 [facility] XR foot LT min 3V*on 025 XR foot LT min 3V* [facility] [place] [address] XRay Report Signed Patient: Loy Hastings MR#: [id number] : 1980 Acct:[id number] Age/Sex: 44 / F ADM Date: 03/28/25 Loc: ER Room: Type: [facility] ER Attending Dr: Copies to: Ivy White Do Ordering Provider: Ivy White Do Date of Service: 03/28/25 XR/XR foot LT min 3V*: Extremity Injury, Lower LEFT FOOT - 3 views CLINICAL HISTORY: Injury to left foot. Now with pain COMPARISON: Left foot 03/10/2021 FINDINGS: Soft tissue swelling is present. Bones are grossly demineralized. Ankle fusion is partially visualized without hardware complication. Scattered moderate degenerative changes with plantar spurring. No bony erosions. XR/XR foot LT min 3V* IMPRESSION: MODERATE DEGENERATIVE CHANGES INVOLVING THE LEFT FOOT WITHOUT ACUTE BONY PROCESS. DIFFUSE SOFT TISSUE SWELLING. Impression dictated by: Marquise Mendenhall Jr., D.O. 03/28/2025 9:08 AM Dictation Location: [facility]22 Transcribed By: [facility] 03/28/25 0908 Dictated By: Marquise Mendenhall Jr, DO 03/28/25 0907 Signed By: 03/28/25 0908 Normal [facility] X-ray reportOrdered By: Ralph Mendenhall on 12-05-2024 Study report [facility] Main [address] [address] XRay Report Signed Patient: Loy Hastings MR#: [id number] : 1980 Acct:[id number] Age/Sex: 43 / F ADM Date: 5 Loc: ER Room: Type: [facility] ER Attending Dr: Copies to: Elio Martinez DO~ Ordering Provider: Elio Martinez DO Date of Service: 12/05/24 XR/XR hand LT min 3V*: Extremity Injury, Upper ([id number]) XR/XR forearm LT 2V*: Extremity Injury, Upper LEFT HAND - 3 views left forearm 2 views REASON FOR EXAM: Pain along fifth metacarpal after fall. Posterior forearm pain. COMPARISON: Left hand 06/14/2023 FINDINGS: Left hand: No focal soft tissue abnormality. No acute bony process is seen. Presumed posttraumatic deformity is seen involving the distal radius. Degenerative changes involving the radioulnar joint. Carpus demonstrate degenerative changes particularly along the scaphotrapezial joint and CMC joint of the thumb. IP joints demonstrate degenerative change. No bony erosions. Left forearm: No focal soft tissue abnormality. No acute bony process is seen. Degenerative changes are noted involving the elbow joint. XR/XR hand LT min 3V* IMPRESSION: DEGENERATIVE CHANGES INVOLVING THE LEFT HAND AND FOREARM WITHOUT ACUTE BONY PROCESS. Impression dictated by: Marquise Mendenhall Jr., D.ORosey12/05/2024 11:09 PM Dictation Location: [place] [address] Transcribed By: [facility] 12/05/242308 Dictated By: Marquise Mendenhall Jr, DO 12/05/242306 Signed By: 12/05/242308 [facility] XR forearm LT 2V*on 12-05-19 XR forearm LT 2V* [facility] [place] [address] XRay Report Signed Patient: Loy Hastings MR#: [id number] : 1980 Acct:[id number] Age/Sex: 43 / F ADM Date: 12/05/24 Loc: ER Room: Type: [facility] ER Attending Dr: Copies to: Elio Martinez DO Ordering Provider: Elio Martinez DO Date of Service: 12/05/24 XR/XR hand LT min 3V*: Extremity Injury, Upper ([id number]) XR/XR forearm LT 2V*: Extremity Injury, Upper LEFT HAND - 3 views left forearm 2 views REASON FOR EXAM: Pain along fifth metacarpal after fall. Posterior forearm pain. COMPARISON: Left hand 06/14/2023 FINDINGS: Left hand: No focal soft tissue abnormality. No acute bony process is seen. Presumed posttraumatic deformity is seen involving the distal radius. Degenerative changes involving the radioulnar joint. Carpus demonstrate degenerative changes particularly along the scaphotrapezial joint and CMC joint of the thumb. IP joints demonstrate degenerative change. No bony erosions. Left forearm: No focal soft tissue abnormality. No acute bony process is seen. Degenerative changes are noted involving the elbow joint. XR/XR hand LT min 3V* IMPRESSION: DEGENERATIVE CHANGES INVOLVING THE LEFT HAND AND FOREARM WITHOUT ACUTE BONY PROCESS. Impression dictated by: Marquise Mendenhall Jr., D.O.12/05/2024 11:09 PM Dictation Location: [facility] Transcribed By: [facility] 12/05/242308 Dictated By: Marquise Mendenhall Jr, DO 12/05/242306 Signed By: 12/05/242308 Normal [facility] MM screening mammo BI w/CADo n 12-03-2024 MM screening mammo BI w/CAD [facility] Main [place] [address] [place] [address] Mammography Report Signed Patient: Loy Hastings MR#: [id number] : 1980 Acct:[id number] Age/Sex: 43 / F ADM Date: 12/03/24 Loc: [place] Room: Type: [facility] Attending Dr: Referral Self Copies to: [facility] SELF,REFERRAL Ordering Provider: SELF,REFERRAL Date of Service: 12/03/24 MM/MM screening mammo BI w/CAD: CREENING CLINICAL DATA: Screening for malignancy. BILATERAL SCREENING MAMMOGRAMS - FULL FIELD DIGITAL WITH TOMOSYNTHESIS AND CAD Tomosynthesis craniocaudal and mediolateral oblique views of both breasts were obtained using low- dose digital technique. Comparison is made to prior studies from 12/02/2023, 11/17/2020, and 11/14/2019. This examination was reviewed with the aid of CAD. There are scattered fibroglandular densities. Benign-appearing calcifications are present. There is a similar focal asymmetry on the left. There are no dominant masses, typically malignant calcifications or architectural distortion. There has been no significant interval change. MM/MM screening mammo BI w/CAD IMPRESSION: NO MAMMOGRAPHIC EVIDENCE OF MALIGNANCY. ROUTINE FOLLOW-UP IS RECOMMENDED IN ONE YEAR. RESULT CODE: 2 Benign Findings(s) DENSITY CODE: 2 (approximately 25-50% glandular) FOLLOW UP: 1YR The false-negative rate of mammography is approximately 10-percent. Management of a palpable abnormality must be based on clinical grounds. Patient was entered into a reminder system with a target due date for the next mammogram. Impression dictated by: Alan Matta M.D.12/03/2024 2:34 PM Dictation Location: [facility] Transcribed By: ILIA 12/03/24 1434 Dictated By: Alan Matta II, MD 12/03/24 1429 Signed By: 12/03/24 1434 Normal [facility] Mammography reportOrdered By : Alan Matta on 12-03-2024 Diagnostic imaging study [facility] [place] [address] Mammography Report Signed Patient: Loy Hastings MR#: [id number] : 1980 Acct:[id number] Age/Sex: 43 / F ADM Date: 5 Loc: [place] Room: Type: [facility] Attending Dr: Referral Self Copies to: [facility] SELF,REFERRAL ~ Ordering Provider: SELF,REFERRAL Date of Service: 12/03/24 MM/MM screening mammo BI w/CAD: CREENING CLINICAL DATA: Screening for malignancy. BILATERAL SCREENING MAMMOGRAMS - FULL FIELD DIGITAL WITH TOMOSYNTHESIS AND CAD Tomosynthesis craniocaudal and mediolateral oblique views of both breasts were obtained using low-dose digital technique. Comparison is made to prior studies from 12/02/2023, 11/17/2020, and 11/14/2019. This examination was reviewed with the aid of CAD. There are scattered fibroglandular densities. Benign-appearing calcifications are present. There is a similar focal asymmetry on the left. There are no dominant masses, typically malignant calcifications or architectural distortion. There has been no significant interval change. MM/MM screening mammo BI w/CAD IMPRESSION: NO MAMMOGRAPHIC EVIDENCE OF MALIGNANCY. ROUTINE FOLLOW-UP IS RECOMMENDED IN ONE YEAR. RESULT CODE: 2 Benign Findings(s) DENSITY CODE: 2 (approximately 25-50% glandular) FOLLOW UP: 1YR The false-negative rate of mammography is approximately 10-percent. Management of a palpable abnormality must be based on clinical grounds. Patient was entered into a reminder system with a target due date for the next mammogram. Impression dictated by: Alan Matta M.D.12/03/2024 2:34 PM Dictation Location: [facility] Transcribed By: ILIA 12/03/24 143 Dictated By: Alan Matta II, MD 12/03/24 142 Signed By: 12/03/24 143 [facility] Work Phone: A1C with Estimated Average G luon 09-07-2024 Glucose [Mass/Vol] 123 mg/dL Normal [facility] Comment on above: Order Comment: Reaso n for Exam Obesity due to excess calories with serious comorbidity, uns Result Comment: PERF ORMED BY: [place] [address] PATHOLOGIST INDUSTRI[employer] SERVICE TECHNICIAN MARTY SALGADO M.D. Performed By: #### L IPID, CBC, TSH3 wRFLX, CMP, URMACRERAT, A1C WTH eA #### [facility] [address] [place], [place] [id number] [place] Alanine aminotransferase [En zymatic activity/volume] in Serum or PlasmaOrdered By: John Luu on 09-07-2024 ALT [Catalytic activity/Vol] 17 U/L Normal [facility] Comment on above: Order Comment: Reaso n for Exam Obesity due to excess calories with serious comorbidity, uns Performed By: #### C BC, BMP, PT, PTT, HEPATIC, LIPASE #### [facility] [address] [place], [place] [id number] [place] ALT [Catalytic activity/Vol] Alanine aminotransferase [Enzymatic activity/volume] in Serum or Plasma [facility] Albumin [Mass/volume] in Ser um or Plasma by Bromocresol green (BCG) dye binding methoOrdered By: John Luu on 09-07-2024 Albumin BCG dye [Mass/Vol] 3.8 g/dL 3.5-5.7 [facility] Albumin BCG dye [Mass/Vol] Albumin [Mass/volume] in Serum or Plasma by Bromocresol green (BCG) dye binding metho 3.5-5.7 [facility] Alkaline phosphatase [Enzyma tic activity/volume] in Serum or PlasmaOrdered By: John Luu on 09-07-2024 ALP [Catalytic activity/Vol] 102 U/L Normal 34-104 [facility] Comment on above: Order Comment: Reaso n for Exam Obesity due to excess calories with serious comorbidity, uns Performed By: #### C BC, BMP, PT, PTT, HEPATIC, LIPASE #### [facility] [address] ALP [Catalytic activity/Vol] Alkaline phosphatase [Enzymatic activity/volume] in Serum or Plasma [address] [facility] Aspartate aminotransferase [ Enzymatic activity/volume] in Serum or PlasmaOrdered By: John Luu on 09-07-2024 AST [Catalytic activity/Vol] 13 U/L Normal 13-39 [facility] Comment on above: Order Comment: Kieto n for Exam Obesity due to excess calories with serious comorbidity, uns Performed By: #### C BC, BMP, PT, PTT, HEPATIC, LIPASE #### [facility] [address] [place] [id number] [place] AST [Catalytic activity/Vol] Aspartate aminotransferase [Enzymatic activity/volume] in Serum or Plasma 13-39 [facility] Automated basophil %Ordered By: John Luu on 09-07-2024 Basophils/100 WBC (Bld) 0.6 % Normal . [facility] Comment on above: Order Comment: Kieto n for Exam Obesity due to excess calories with serious comorbidity, uns Performed By: #### L IPID, CBC, TSH3 wRFLX, CMP, URMACRERAT, A1C WTH eA #### [facility] [address] [place] [id number] [place] Automated basophil countOrde red By: John Luu on 09-07-2024 Basophils (Bld) [#/Vol] 0.0 10*3/uL Normal 0.0-0.2 [facility] Comment on above: Order Comment: Reaso n for Exam Obesity due to excess calories with serious comorbidity, uns Result Comment: PERF ORMED BY: [place] [address] PATHOLOGIST INDUSTRIAL SERVICE TECHNICIAN MARTY SALGADO M.D. Performed By: #### L IPID, CBC, TSH3 wRFLX, CMP, URMACRERAT, A1C WTH eA #### [facility] [address] [place] [address] Automated blood monocyte cou ntOrdered By: John Luu on 09-07-2024 Monocytes (Bld) [#/Vol] 0.4 10*3/uL Normal 0.0-0.8 [facility] Comment on above: Order Comment: Reaso n for Exam Obesity due to excess calories with serious comorbidity, uns Performed By: #### L IPID, CBC, TSH3 wRFLX, CMP, URMACRERAT, A1C WT eA #### [facility] [address] [place] [address] Automated eosinophil %Ordere d By: John Luu on 09-07-2024 Eosinophils/100 WBC (Bld) 3.6 % Normal . [facility] Comment on above: Order Comment: Reaso n for Exam Obesity due to excess calories with serious comorbidity, uns Performed By: #### L IPID, CBC, TSH3 wRFLX, CMP, URMACRERAT, A1C WTH eA #### [facility] [address] [place] [address] [place] Automated eosinophil countOr dered By: John Luu on 09-07-2024 Eosinophils (Bld) [#/Vol] 0.3 10*3/uL Normal 0.0-0.45 [facility] Comment on above: Order Comment: Reaso n for Exam Obesity due to excess calories with serious comorbidity, uns Performed By: #### L IPID, CBC, TSH3 wRFLX, CMP, URMACRERAT, A1C WTH eA #### [facility] [address] Automated monocyte %Ordered By: John Luu on 09-07-2024 Monocytes/100 WBC (Bld) 4.6 % Normal . [facility] Comment on above: Order Comment: Reaso n for Exam Obesity due to excess calories with serious comorbidity, uns Performed By: #### L IPID, CBC, TSH3 wRFLX, CMP, URMACRERAT, A1C WTH eA #### [facility] [address] Automated neutrophil %Ordere d By: John Luu on 09-07-2024 Neutrophils/100 WBC (Bld) 56.2 % Normal . [facility] Comment on above: Order Comment: Reaso n for Exam Obesity due to excess calories with serious comorbidity, uns Performed By: #### L IPID, CBC, TSH3 wRFLX, CMP, URMACRERAT, A1C WTH eA #### [facility] [address] [place] [address] [place] Basophils Auto (Bld) [#/Vol] Ordered By: John Luu on 09-07-2024 Basophils (Bld) [#/Vol] Automated basophil count 0.0-0.2 [facility] Basophils/100 WBC Auto (Bld) Ordered By: John Luu on 09-07-2024 Basophils/100 WBC (Bld) Automated basophil % . [facility] Bilirubin.total [Mass/volume ] in Serum or PlasmaOrdered By: John Luu on 09-07-2024 Bilirubin [Mass/Vol] 0.4 mg/dL Normal 0.3-1.0 [facility] Comment on above: Order Comment: Reaso n for Exam Obesity due to excess calories with serious comorbidity, uns Performed By: #### C BC, BMP, PT, PTT, HEPATIC, LIPASE #### [facility] [address] Bilirubin [Mass/Vol] Bilirubin.total [Mass/volume] in Serum or Plasma 0.3-1.0 [facility] Blood estimated average gluc ose determination by estimation from glycated hemoglobinOrdered By: John Luu on 09-07-2024 Average glucose Estimated from glycated hemoglobin (Bld) [Mass/Vol] Glucose mean value [Mass/volume] in Blood Estimated from glycated hemoglobin [facility] Calcium [Mass/volume] in Ser um or PlasmaOrdered By: John Luu on 09-07-2024 Calcium [Mass/Vol] 8.8 mg/dL Normal 8.6-10.3 [facility] Comment on above: Order Comment: Reaso n for Exam Obesity due to excess calories with serious comorbidity, uns Performed By: #### C BC, BMP, PT, PTT, HEPATIC, LIPASE #### [facility] [address] Calcium [Mass/Vol] Calcium [Mass/volume ] in Serum or Plasma 8.6-10.3 [facility] Carbon dioxide, total [Moles /volume] in Serum or PlasmaOrdered By: John Luu on 09-07-2024 CO2 [Moles/Vol] 28.8 mmol/L Normal 21.0-31.0 [facility] Comment on above: Order Comment: Reaso n for Exam Obesity due to excess calories with serious comorbidity, uns Performed By: #### C BC, BMP, PT, PTT, HEPATIC, LIPASE #### [facility] [address] [place] [id number] [place] CO2 [Moles/Vol] Carbon dioxide, tota l [Moles/volume] in Serum or Plasma 21.0-31.0 [facility] Chloride [Moles/volume] in S brian or PlasmaOrdered By: John Luu on 09-07-2024 Chloride [Moles/Vol] 107 mmol/L Normal 98-107 [facility] Comment on above: Order Comment: Reaso n for Exam Obesity due to excess calories with serious comorbidity, uns Performed By: #### C BC, BMP, PT, PTT, HEPATIC, LIPASE #### [facility] [address] [place] [id number] [place] Chloride [Moles/Vol] Chloride [Moles/vol ume] in Serum or Plasma 98-107 [facility] Cholesterol [Mass/volume] in Serum or PlasmaOrdered By: John Luu on 09-07-2024 Cholesterol [Mass/Vol] 166 mg/dL Normal 140-200 [facility] Comment on above: Chol less than 200 m g/dl low riskChol 201-239 mg/dl borderline riskChol 240 mg/dl and greater high risk Order Comment: Reaso n for Exam Obesity due to excess calories with serious comorbidity, uns Result Comment: Chol less than 200 mg/dl low risk Chol 201-239 mg/dl borderline risk Chol 240 mg/dl and greater high risk Performed By: #### C BC, BMP, PT, PTT, HEPATIC, LIPASE #### [facility] [address] Cholesterol [Mass/Vol] Cholesterol [Mass /volume] in Serum or Plasma 140-200 [facility] Comment on above: Chol less than 200 m g/dl low riskChol 201-239 mg/dl borderline riskChol 240 mg/dl and greater high risk Cholesterol in HDL [Mass/vol ume] in Serum or PlasmaOrdered By: John Luu on 09-07-2024 Cholesterol in HDL [Mass/Vol] Serum or plasma high density lipoprotein (HDL) cholesterol measurement 23-92 [facility] Comment on above: HDL CHOL ATP-III CLA SSIFICATION Cardiovascular RiskHDL > or equal to 60 mg/dL LOWHDL < 40 mg/dL HIGH Cholesterol in LDL Calc [Mas s/Vol]Ordered By: John Luu on 09-07-2024 Cholesterol in LDL [Mass/Vol] 113 mg/dL High 0-100 [facility] Comment on above: LDL ATP III CLASSIFI CATIONLDL less than 100 mg/dL OptimalLDL 100-129 mg/dL Near or above optimalLDL 130-159 mg/dL Borderline highLDL 160-189 mg/dL HighLDL greater than 189 mg/dL Very high Cholesterol in LDL [Mass/Vol] Cholesterol in LDL [Mass/volume] in Serum or Plasma by calculation High 0-100 [facility] Comment on above: LDL ATP III CLASSIFI CATIONLDL less than 100 mg/dL OptimalLDL 100-129 mg/dL Near or above optimalLDL 130-159 mg/dL Borderline highLDL 160-189 mg/dL HighLDL greater than 189 mg/dL Very high Cholesterol in VLDL Calc [Ma ss/Vol]Ordered By: John Luu on 09-07-2024 Cholesterol in VLDL [Mass/Vol] 15 mg/dL [facility] Cholesterol in VLDL [Mass/Vol] Cholesterol in VLDL [Mass/volume] in Serum or Plasma by calculation [facility] Complete Blood Count Auto Di ffon 09-07-2024 Mean Corpuscular HGB Conc 32.4 g/dL Normal 32.0-35.0 [facility] Comment on above: Order Comment: Reaso n for Exam Obesity due to excess calories with serious comorbidity, uns Performed By: #### L IPID, CBC, TSH3 wRFLX, CMP, URMACRERAT, A1C WTH eA #### [facility] [address] NRBC% 0.1 /100{WBC} Normal 0-0.5 [facility] Comment on above: Order Comment: Reaso n for Exam Obesity due to excess calories with serious comorbidity, uns Performed By: #### L IPID, CBC, TSH3 wRFLX, CMP, URMACRERAT, A1C WTH eA #### [facility] [address] Comprehensive Metabolic Pane susan 09-07-2024 Albumin [Mass/Vol] 3.8 g/dL Normal 3.5-5.7 [facility] Comment on above: Order Comment: Reaso n for Exam Obesity due to excess calories with serious comorbidity, uns Performed By: #### C BC, BMP, PT, PTT, HEPATIC, LIPASE #### [address] GFR/1.73 sq M.predicted MDRD (S/P/Bld) [Vol rate/Area] mL/min/{1.73_m2} Normal [facility] Comment on above: Order Comment: Reaso n for Exam Obesity due to excess calories with serious comorbidity, uns Performed By: #### C BC, BMP, PT, PTT, HEPATIC, LIPASE #### [facility] [address] [place] [address] Creatinine [Mass/volume] in Serum or PlasmaOrdered By: John Luu on 09-07-2024 Creatinine [Mass/Vol] 0.77 mg/dL Normal 0.60-1.20 [facility] Comment on above: Order Comment: Reaso n for Exam Obesity due to excess calories with serious comorbidity, uns Performed By: #### C BC, BMP, PT, PTT, HEPATIC, LIPASE #### [facility] [address] Creatinine [Mass/Vol] Creatinine [Mass/v olume] in Serum or Plasma 0.60-1.20 [facility] Creatinine [Mass/volume] in UrineOrdered By: John Luu on 09-07-2024 Creatinine (U) [Mass/Vol] 167.00 mg/dL [facility] Comment on above: No reference range e stablished Creatinine (U) [Mass/Vol] Creatinine [Mass/volume] in Urine [facility] Comment on above: No reference range e stablished Eosinophils Auto (Bld) [#/Vo l]Ordered By: John Luu on 09-07-2024 Eosinophils (Bld) [#/Vol] Automated eosinophil count 0.0-0.45 [facility] Eosinophils/100 WBC Auto (Bl d)Ordered By: John Luu on 09-07-2024 Eosinophils/100 WBC (Bld) Automated eosinophil % . [facility] Erythrocyte distribution wid th Auto (RBC) [Ratio]Ordered By: John Luu on 09-07-2024 Erythrocyte distribution width (RBC) [Ratio] Erythrocyte distribution width [Ratio] by Automated count 11.9-15.3 [facility] Erythrocyte distribution wid th [Ratio] by Automated countOrdered By: John Luu on 09-07-2024 Erythrocyte distribution width (RBC) [Ratio] 15.0 % Normal 11.9-15.3 [facility] Comment on above: Order Comment: Reaso n for Exam Obesity due to excess calories with serious comorbidity, uns Performed By: #### L IPID, CBC, TSH3 wRFLX, CMP, URMACRERAT, A1C WTH eA #### [facility] [address] [place] [id number] [place] Erythrocytes [#/volume] in B lood by Automated countOrdered By: John Luu on 09-07-2024 RBC (Bld) [#/Vol] 5.08 10*6/uL High 3.60-5.00 [facility] Comment on above: Order Comment: Reaso n for Exam Obesity due to excess calories with serious comorbidity, uns Performed By: #### L IPID, CBC, TSH3 wRFLX, CMP, URMACRERAT, A1C WTH eA #### [facility] [address] [place] [id number] [facility] Globulin Calc (S) [Mass/Vol] Ordered By: John Luu on 09-07-2024 Globulin (S) [Mass/Vol] Serum globulin m easurement by calculation (mass/volume) [facility] Glucose [Mass/volume] in Ser um or PlasmaOrdered By: John Luu on 09-07-2024 Glucose [Mass/Vol] 89 mg/dL Normal 70-100 [facility] Comment on above: ADA recommended refe rence rangeRandom Glucose Reference Range is dependent on time and content of last meal. Glucose of more than 200 mg/dL in a nonstressed, ambulatory subject supports the diagnosis of Diabetes Mellitus. Order Comment: Reaso n for Exam Obesity due to excess calories with serious comorbidity, uns Result Comment: [place] om Glucose Reference Range is dependent on time and content of last meal. Glucose of more than 200 mg/dL in a nonstressed, ambulatory subject supports the diagnosis of Diabetes Mellitus. ADA recommended reference range Performed By: #### C BC, BMP, PT, PTT, HEPATIC, LIPASE #### [facility] [address] [place] [id number] [facility] Glucose [Mass/Vol] Glucose [Mass/volume ] in Serum or Plasma 70-100 [facility] Comment on above: ADA recommended refe rence rangeRandom Glucose Reference Range is dependent on time and content of last meal. Glucose of more than 200 mg/dL in a nonstressed, ambulatory subject supports the diagnosis of Diabetes Mellitus. Glucose mean value [Mass/vol ume] in Blood Estimated from glycated hemoglobinOrdered By: John Luu on 09-07-2024 Average glucose Estimated from glycated hemoglobin (Bld) [Mass/Vol] 123 mg/dL [facility] Hematocrit Auto (Bld) [Volum e fraction]Ordered By: John Luu on 09-07-2024 Hematocrit (Bld) [Volume fraction] Hematocrit [Volume Fraction] of Blood by Automated count 34.0-46.4 [facility] Hematocrit [Volume Fraction] of Blood by Automated countOrdered By: John Luu on 09-07-2024 Hematocrit (Bld) [Volume fraction] 38.5 % Normal 34.0-46.4 [facility] Comment on above: Order Comment: Kieto n for Exam Obesity due to excess calories with serious comorbidity, uns Performed By: #### L IPID, CBC, TSH3 wRFLX, CMP, URMACRERAT, A1C WTH eA #### [facility] [address] Hemoglobin A1c percentageOrd ered By: John Luu on 09-07-2024 HbA1c (Bld) [Mass fraction] 5.9 % High 4.3-5.6 [facility] Comment on above: Increased risk for d iabetes: 5.7 - 6.4diabetes: >6.4glycemic control for adults with diabetes: <7.0 Order Comment: Deb duffy for Exam Obesity due to excess calories with serious comorbidity, uns Result Comment: Incr eased risk for diabetes: 5.7 - 6.4 diabetes: >6.4 glycemic control for adults with diabetes: <7.0 Performed By: #### L IPID, CBC, TSH3 wRFLX, CMP, URMACRERAT, A1C WTH eA #### [facility] [address] [place] [address] [place] Hemoglobin A1c/Hemoglobin.to gurmeet in BloodOrdered By: John Luu on 09-07-2024 HbA1c (Bld) [Mass fraction] Hemoglobin A1c percentage High 4.3-5.6 [facility] Comment on above: Increased risk for d iabetes: 5.7 - 6.4diabetes: >6.4glycemic control for adults with diabetes: <7.0 Hemoglobin [Mass/volume] in BloodOrdered By: John Luu on 09-07-2024 Hemoglobin (Bld) [Mass/Vol] 12.5 g/dL Normal 11.8-15.4 [facility] Comment on above: Order Comment: Deb duffy for Exam Obesity due to excess calories with serious comorbidity, uns Performed By: #### L IPID, CBC, TSH3 wRFLX, CMP, URMACRERAT, A1C [facility] eA #### [facility] [address] Hemoglobin (Bld) [Mass/Vol] Hemoglobin [Mass/volume] in Blood 11.8-15.4 [facility] Leukocytes [#/volume] correc abdias for nucleated erythrocytes in Blood by Automated counOrdered By: John Luu on 09-07-2024 WBC corrected for nucl RBC Auto (Bld) [#/Vol] 7.7 10*3/uL 3.8-11.6 [facility] WBC corrected for nucl RBC Auto (Bld) [#/Vol] Leukocytes [#/volume] corrected for nucleated erythrocytes in Blood by Automated coun 3.8-11.6 [facility] Leukocytes [#/volume] in Blo od by Automated countOrdered By: John Luu on 09-07-2024 WBC (Bld) [#/Vol] 7.7 10*3/uL Normal 3.8-11.6 [facility] Comment on above: Order Comment: Reaso n for Exam Obesity due to excess calories with serious comorbidity, uns Performed By: #### L IPID, CBC, TSH3 wRFLX, CMP, URMACRERAT, A1C [facility] eA #### [facility] [address] Lipid Panelon 09-07-2024 LDL Cholesterol,Calculated 113 mg/dL High 0-100 [facility] Comment on above: Order Comment: Reaso n for Exam Obesity due to excess calories with serious comorbidity, uns Result Comment: LDL ATP III CLASSIFICATION LDL less than 100 mg/dL Optimal LDL 100-129 mg/dL Near or above optimal LDL 130-159 mg/dL Borderline high LDL 160-189 mg/dL High LDL greater than 189 mg/dL Very high Performed By: #### C BC, BMP, PT, PTT, HEPATIC, LIPASE #### [facility] [address] Triglyceride w/Reflex 78 mg/dL Normal 0-149 [facility] Comment on above: Order [...] Prevention (CDC) test method. Performed By: #### C BC, BMP, PT, PTT, HEPATIC, LIPASE #### [facility] [address] VLDL CHOLESTEROL 15 mg/dL Normal [facility] Comment on above: Order Comment: Reaso n for Exam Obesity due to excess calories with serious comorbidity, uns Performed By: #### C BC, BMP, PT, PTT, HEPATIC, LIPASE #### [facility] [address] [place] [address] [place] Lymphocytes Auto (Bld) [#/Vo l]Ordered By: John Luu on 09-07-2024 Lymphocytes (Bld) [#/Vol] Lymphocytes [#/volume] in Blood by Automated count 1.00-4.8 [facility] Lymphocytes [#/volume] in Bl ood by Automated countOrdered By: John Luu on 09-07-2024 Lymphocytes (Bld) [#/Vol] 2.7 10*3/uL Normal 1.00-4.8 [facility] Comment on above: Order Comment: Reaso n for Exam Obesity due to excess calories with serious comorbidity, uns Performed By: #### L IPID, CBC, TSH3 wRFLX, CMP, URMACRERAT, A1C WTH eA #### [facility] [address] [place] [address] [place] Lymphocytes/100 WBC Auto (Bl d)Ordered By: John Luu on 09-07-2024 Lymphocytes/100 WBC (Bld) Lymphocytes/100 leukocytes in Blood by Automated count . [facility] Lymphocytes/100 leukocytes i n Blood by Automated countOrdered By: John Luu on 09-07-2024 Lymphocytes/100 WBC (Bld) 35.0 % Normal . [facility] Comment on above: Order Comment: Reaso n for Exam Obesity due to excess calories with serious comorbidity, uns Performed By: #### L IPID, CBC, TSH3 wRFLX, CMP, URMACRERAT, A1C WTH eA #### [facility] [address] MCH Auto (RBC) [Entitic mass ]Ordered By: John Luu on 09-07-2024 MCH (RBC) [Entitic mass] MCH [Entitic mass] by Automated count Low 24.7-34.3 [facility] MCH [Entitic mass] by Automa abdias countOrdered By: John Luu on 09-07-2024 MCH (RBC) [Entitic mass] 24.5 pg Low 24.7-34.3 [facility] Comment on above: Order Comment: Reaso n for Exam Obesity due to excess calories with serious comorbidity, uns Performed By: #### L IPID, CBC, TSH3 wRFLX, CMP, URMACRERAT, A1C WT eA #### [facility] [address] [place] [id number] [facility] MCHC Auto (RBC) [Mass/Vol]Or dered By: John Luu on 09-07-2024 MCHC (RBC) [Mass/Vol] 32.4 g/dL 32.0-35.0 [facility] MCHC (RBC) [Mass/Vol] MCHC [Mass/volume] by Automated count 32.0-35.0 [facility] MCV Auto (RBC) [Entitic vol] Ordered By: John Luu on 09-07-2024 MCV (RBC) [Entitic vol] MCV [Entitic vol ume] by Automated count Low 80-100 [facility] MCV [Entitic volume] by Auto mated countOrdered By: John Luu on 09-07-2024 MCV (RBC) [Entitic vol] 75.7 fL Low 80-100 F [facility] Comment on above: Order Comment: Reaso n for Exam Obesity due to excess calories with serious comorbidity, uns Performed By: #### L IPID, CBC, TSH3 wRFLX, CMP, URMACRERAT, A1C WTH eA #### [facility] [address] [place] [id number] [place] MicroAlb Creat Ratio,Uon Creatinine, Urine (Random) 167.00 mg/dL Normal [facility] Comment on above: Order Comment: Reaso n for Exam Obesity due to excess calories with serious comorbidity, uns Result Comment: No r eference range established Performed By: #### C BC, BMP, PT, PTT, HEPATIC, LIPASE #### [address] Microalbumin/Creatinine Ratio 5.4 mg/g Normal 0.0-30.0 [facility] Comment on above: Order Comment: Reaso n for Exam Obesity due to excess calories with serious comorbidity, uns Result Comment: 30-3 00 mg/g indicates an increased risk for diabetic nephropathy. Greater than 300 mg/g is consistent with clinical nephropathy. (Am. J. Kidney Disease 1995, 25:107) PERFORMED BY: [place] [address] PATHOLOGIST INDUSTRIAL SERVICE TECHNICIAN MARTY SALGADO M.D. Performed By: #### C BC, BMP, PT, PTT, HEPATIC, LIPASE #### [address] Microalbumin [Mass/volume] i n UrineOrdered By: John Luu on 09-07-2024 Albumin DL <= 20 mg/L (U) [Mass/Vol] 0.9 mg/dL Normal 0.0-1.8 [facility] Comment on above: Order Comment: Reaso n for Exam Obesity due to excess calories with serious comorbidity, uns Performed By: #### C BC, BMP, PT, PTT, HEPATIC, LIPASE #### [address] Albumin DL <= 20 mg/L (U) [Mass/Vol] Microalbumin [Mass/volume] in Urine 0.0-1.8 [facility] Monocytes Auto (Bld) [#/Vol] Ordered By: John Luu on 09-07-2024 Monocytes (Bld) [#/Vol] Automated blood monocyte count 0.0-0.8 [facility] Monocytes/100 WBC Auto (Bld) Ordered By: John Luu on 09-07-2024 Monocytes/100 WBC (Bld) Automated monocyte % . [facility] Neutrophils Auto (Bld) [#/Vo l]Ordered By: John Luu on 09-07-2024 Neutrophils (Bld) [#/Vol] Neutrophils [#/volume] in Blood by Automated count 1.8-7.7 [facility] Neutrophils [#/volume] in Bl ood by Automated countOrdered By: John Luu on 09-07-2024 Neutrophils (Bld) [#/Vol] 4.3 10*3/uL Normal 1.8-7.7 [facility] Comment on above: Order Comment: Reaso n for Exam Obesity due to excess calories with serious comorbidity, uns Performed By: #### L IPID, CBC, TSH3 wRFLX, CMP, URMACRERAT, A1C WTH eA #### [facility] [address] Neutrophils/100 WBC Auto (Bl d)Ordered By: John Luu on 09-07-2024 Neutrophils/100 WBC (Bld) Automated neutrophil % . [facility] No Panel InformationOrdered By: John Luu on 09-07-2024 Estimated GFR (CKD-EPI) > 60.0 mL/Min [facility] Creatinine Clearance (Chem N/A [facility] Nucleated erythrocytes [Pres ence] in Blood by Automated countOrdered By: John Luu on 09-07-2024 Nucleated RBC Auto Ql (Bld) 0.1 /100{WBC} 0-0.5 [facility] Nucleated RBC Auto Ql (Bld) Nucleated erythrocytes [Presence] in Blood by Automated count 0-0.5 [facility] Platelet mean volume Auto (B ld) [Entitic vol]Ordered By: John Luu on 09-07-2024 Platelet mean volume (Bld) [Entitic vol] Platelet mean volume [Entitic volume] in Blood by Automated count 6.3-10.7 [facility] Platelet mean volume [Entiti c volume] in Blood by Automated countOrdered By: John Luu on 09-07-2024 Platelet mean volume (Bld) [Entitic vol] 7.4 fL Normal 6.3-10.7 [facility] Comment on above: Order Comment: Reaso n for Exam Obesity due to excess calories with serious comorbidity, uns Performed By: #### L IPID, CBC, TSH3 wRFLX, CMP, URMACRERAT, A1C [facility] eA #### [facility] [address] [place] [id number] [place] Platelets Auto (Bld) [#/Vol] Ordered By: John Luu on 09-07-2024 Platelets (Bld) [#/Vol] Platelets [#/vol ume] in Blood by Automated count 150-450 [facility] Platelets [#/volume] in Bloo d by Automated countOrdered By: John Luu on 09-07-2024 Platelets (Bld) [#/Vol] 324 10*3/uL Normal 150-450 [facility] Comment on above: Order Comment: Reaso n for Exam Obesity due to excess calories with serious comorbidity, uns Performed By: #### L IPID, CBC, TSH3 wRFLX, CMP, URMACRERAT, A1C [facility] eA #### [facility] [address] [place] [address] [place] Potassium [Moles/volume] in Serum or PlasmaOrdered By: John Luu on 09-07-2024 Potassium [Moles/Vol] 4.0 mmol/L Normal 3.5-5.1 [facility] Comment on above: Order Comment: Reaso n for Exam Obesity due to excess calories with serious comorbidity, uns Performed By: #### C BC, BMP, PT, PTT, HEPATIC, LIPASE #### [facility] [address] [place] [id number] [place] Potassium [Moles/Vol] Potassium [Moles/v olume] in Serum or Plasma 3.5-5.1 [facility] Protein [Mass/volume] in Ser um or PlasmaOrdered By: John Luu on 09-07-2024 Protein [Mass/Vol] 6.7 g/dL Normal 6.4-8.9 [facility] Comment on above: Order Comment: Reaso n for Exam Obesity due to excess calories with serious comorbidity, uns Performed By: #### C BC, BMP, PT, PTT, HEPATIC, LIPASE #### [facility] [address] [place] [address] Protein [Mass/Vol] Protein [Mass/volume ] in Serum or Plasma 6.4-8.9 [facility] RBC Auto (Bld) [#/Vol]Ordere d By: John Luu on 09-07-2024 RBC (Bld) [#/Vol] Erythrocytes [#/volu me] in Blood by Automated count High 3.60-5.00 [facility] Serum globulin measurement b y calculation (mass/volume)Ordered By: John Luu on 09-07-2024 Globulin (S) [Mass/Vol] 2.9 g/dL Normal F [facility] Comment on above: Order Comment: Reaso n for Exam Obesity due to excess calories with serious comorbidity, uns Performed By: #### C BC, BMP, PT, PTT, HEPATIC, LIPASE #### [facility] [address] Serum or plasma albumin/glob ulin mass ratioOrdered By: John Luu on 09-07-2024 Albumin/Globulin [Mass ratio] 1.3 {ratio} Normal [facility] Comment on above: Order Comment: Reaso n for Exam Obesity due to excess calories with serious comorbidity, uns Performed By: #### C BC, BMP, PT, PTT, HEPATIC, LIPASE #### [facility] [address] Albumin/Globulin [Mass ratio] Serum or plasma albumin/globulin mass ratio [facility] Serum or plasma anion gap de terminationOrdered By: John Luu on 09-07-2024 Anion gap [Moles/Vol] 10.2 mmol/L Normal 6.0-15.0 [facility] Comment on above: Order Comment: Reaso n for Exam Obesity due to excess calories with serious comorbidity, uns Performed By: #### C BC, BMP, PT, PTT, HEPATIC, LIPASE #### [facility] [address] Anion gap [Moles/Vol] Serum or plasma an ion gap determination 6.0-15.0 [facility] Serum or plasma high density lipoprotein (HDL) cholesterol measurementOrdered By: John Luu on 10-11-2024 Cholesterol in HDL [Mass/Vol] 37 mg/dL Normal 23-92 [facility] Comment on above: HDL CHOL ATP-III CLA SSIFICATION Cardiovascular RiskHDL > or equal to 60 mg/dL LOWHDL < 40 mg/dL HIGH Order Comment: Reaso n for Exam Obesity due to excess calories with serious comorbidity, uns Result Comment: HDL CHOL ATP-III CLASSIFICATION Cardiovascular Risk HDL > or equal to 60 mg/dL LOW HDL < 40 mg/dL HIGH Performed By: #### C BC, BMP, PT, PTT, HEPATIC, LIPASE #### [facility] [address] [place] [id number] [facility] Serum or plasma total choles terol/high density lipoprotein (HDL) cholesterol mass ratOrdered By: John Luu on 09-07-2024 Cholesterol.total/Candy sterol in HDL [Mass ratio] 4.5 {ratio} Normal <5.0 [facility] Comment on above: Order Comment: Reaso n for Exam Obesity due to excess calories with serious comorbidity, uns Performed By: #### C BC, BMP, PT, PTT, HEPATIC, LIPASE #### [facility] [address] [place] [id number] [place] Cholesterol.total/Candy sterol in HDL [Mass ratio] Serum or plasma total cholesterol/high density lipoprotein (HDL) cholesterol mass rat <5.0 [facility] Sodium [Moles/volume] in Ser um or PlasmaOrdered By: John Luu on 09-07-2024 Sodium [Moles/Vol] 142 mmol/L Normal 136-145 [facility] Comment on above: Order Comment: Reaso n for Exam Obesity due to excess calories with serious comorbidity, uns Performed By: #### C BC, BMP, PT, PTT, HEPATIC, LIPASE #### [facility] [address] [place] [id number] [place] Sodium [Moles/Vol] Sodium [Moles/volume ] in Serum or Plasma 136-145 [facility] Thyroid Stim Hormone w/Rflxo n 09-07-2024 Thyroid Stim Hormone w/Rflx 0.94 u[iU]/mL Normal 0.45-5.33 [facility] Comment on above: Order Comment: Reaso n for Exam Obesity due to excess calories with serious comorbidity, uns Result Comment: PERF ORMED BY: [facility] [address] [place] [address] PATHOLOGIST INDUSTRIAL SERVICE TECHNICIAN MARTY SALGADO M.D. Performed By: #### C BC, BMP, PT, PTT, HEPATIC, LIPASE #### [facility] [address] Thyrotropin [Units/volume] i n Serum or PlasmaOrdered By: John Luu on 09-07-2024 TSH Qn 0.94 m[IU]/L 0.45-5.33 [facility] TSH Qn Thyrotropin [Units/v olume] in Serum or Plasma 0.45-5.33 [facility] Triglyceride [Mass/volume] i n Serum or PlasmaOrdered By: John Luu on 09-07-2024 Triglyceride [Mass/Vol] 78 mg/dL 0-[address] [facility] Comment on above: TRIG ATP III CLASSIF ICATIONTRIG less than 150 mg/dL NormalTRIG 150-199 mg/dL Borderline highTRIG 200-500 mg/dL High TRIG greater than 500 mg/dL Very highStandard traceable to the Center for Disease Conrtrol and Prevention (CDC) test method. Triglyceride [Mass/Vol] Triglyceride [Ma ss/volume] in Serum or Plasma 0-149 [facility] Comment on above: TRIG ATP III CLASSIF ICATIONTRIG less than 150 mg/dL NormalTRIG 150-199 mg/dL Borderline highTRIG 200-500 mg/dL High TRIG greater than 500 mg/dL Very highStandard traceable to the Center for Disease Conrtrol and Prevention (CDC) test method. Urea nitrogen [Mass/volume] in Serum or PlasmaOrdered By: John Luu on 09-07-2024 Urea nitrogen [Mass/Vol] 11 mg/dL Normal 06-21 [facility] Comment on above: Order Comment: Reaso n for Exam Obesity due to excess calories with serious comorbidity, uns Performed By: #### C BC, BMP, PT, PTT, HEPATIC, LIPASE #### [facility] [address] [place] [id number] [facility] Urea nitrogen [Mass/Vol] Urea nitrogen [Mass/volume] in Serum or Plasma 06-21 [facility] Urine microalbumin/creatinin e mass ratioOrdered By: Lopezsulma Luu on 09-07-2024 Albumin/Creatinine DL <= 20 mg/L (U) [Mass ratio] 5.4 mg/g 0.0-30.0 [facility] Comment on above: 30-300 mg/g indicate s an increased risk for diabetic nephropathy. Greater than 300 mg/g is consistent with clinical nephropathy. (Am. J. Kidney Disease 1995, 25:107) Albumin/Creatinine DL <= 20 mg/L (U) [Mass ratio] Urine microalbumin/creatinine mass ratio 0.0-30.0 [facility] Comment on above: 30-300 mg/g indicate s an increased risk for diabetic nephropathy. Greater than 300 mg/g is consistent with clinical nephropathy. (Am. J. Kidney Disease 1995, 25:107) WBC Auto (Bld) [#/Vol]Ordere d By: John Jus on 09-07-2024 WBC (Bld) [#/Vol] Leukocytes [#/volume ] in Blood by Automated count 3.8-11.6 [facility] XR foot RT min 3V*on 024 XR foot RT min 3V* [facility] [place] [address] XRay Report Signed Patient: Loy Hastings MR#: [id number] : 1980 Acct:[id number] Age/Sex: 43 / F ADM Date: 08/07/24 Loc: ER Room: Type: [facility] ER Attending Dr: Copies to: Agustin [...] Sarah Mistry M.D.08/07/2024 11:28 AM Dictation Location: [place] [address] Transcribed By: [facility] 08/07/241127 Dictated By: Sarah Mistry MD 08/07/241125 Signed By: 08/07/241127 Normal [facility] Activated partial thrombopla stin time (aPTT) in platelet poor plasma by coagulation aOrdered By: Jovan Hutson on 07-10-2024 aPTT Coag (PPP) [Time] 33.6 s 25.1-36.5 [facility] Comment on above: A hematocrit value g reater than 55% may lead to inaccurate results in coagulation testing. Patients having hematocrit values >55% require a special collection tube for coagulation studies. Please contact the laboratory at [phone] for redraw instructions. Alanine aminotransferase [En zymatic activity/volume] in Serum or PlasmaOrdered By: Jovan Hutson on 07-10-2024 ALT [Catalytic activity/Vol] 34 U/L Normal 7-52 [facility] Comment on above: Performed By: #### C BC, BMP, PT, PTT, HEPATIC, LIPASE #### [facility] [address] [place] [id number] [place] Albumin [Mass/volume] in Ser um or Plasma by Bromocresol green (BCG) dye binding methoOrdered By: Jovan Hutson on 07-10-2024 Albumin BCG dye [Mass/Vol] 4.2 g/dL 3.5-5.7 [facility] Alkaline phosphatase [Enzyma tic activity/volume] in Serum or PlasmaOrdered By: Jovan Hutson on 07-10-2024 ALP [Catalytic activity/Vol] 106 U/L High 34-104 [facility] Comment on above: Performed By: #### C BC, BMP, PT, PTT, HEPATIC, LIPASE #### [facility] [address] [place] [id number] [place] Aspartate aminotransferase [ Enzymatic activity/volume] in Serum or PlasmaOrdered By: Jovan Hutson on 07-10-2024 AST [Catalytic activity/Vol] 18 U/L Normal 13-39 [facility] Comment on above: Performed By: #### C BC, BMP, PT, PTT, HEPATIC, LIPASE #### [address] Automated basophil %Ordered By: Jovan Hutson on 07-10-2024 Basophils/100 WBC (Bld) 0.8 % Normal . F [facility] Comment on above: Performed By: #### C BC, BMP, PT, PTT, HEPATIC, LIPASE #### [address] Automated basophil countOrde red By: Jovan Hutson on 07-10-2024 Basophils (Bld) [#/Vol] 0.1 10*3/uL Normal 0.0-0.2 [facility] Comment on above: Result Comment: PERF ORMED BY: [place] [address] PATHOLOGIST INDUSTRIAL SERVICE TECHNICIAN MARTY SALGADO M.D. Performed By: #### C BC, BMP, PT, PTT, HEPATIC, LIPASE #### [address] Automated blood monocyte cou ntOrdered By: Jovan Hutson on 07-10-2024 Monocytes (Bld) [#/Vol] 0.5 10*3/uL Normal 0.0-0.8 [facility] Comment on above: Performed By: #### C BC, BMP, PT, PTT, HEPATIC, LIPASE #### [address] Automated eosinophil %Ordere d By: Jovan Hutson on 07-10-2024 Eosinophils/100 WBC (Bld) 4.5 % Normal . [facility] Comment on above: Performed By: #### C BC, BMP, PT, PTT, HEPATIC, LIPASE #### [address] Automated eosinophil countOr dered By: Jovan Hutson on 07-10-2024 Eosinophils (Bld) [#/Vol] 0.4 10*3/uL Normal 0.0-0.45 [facility] Comment on above: Performed By: #### C BC, BMP, PT, PTT, HEPATIC, LIPASE #### [address] Automated monocyte %Ordered By: Jovan Hutson on 07-10-2024 Monocytes/100 WBC (Bld) 6.1 % Normal . F [facility] Comment on above: Performed By: #### C BC, BMP, PT, PTT, HEPATIC, LIPASE #### [address] Automated neutrophil %Ordere d By: Jovan Hutson on 07-10-2024 Neutrophils/100 WBC (Bld) 62.1 % Normal . [facility] Comment on above: Performed By: #### C BC, BMP, PT, PTT, HEPATIC, LIPASE #### [address] Bacteria [Presence] in Urine by AutomatedOrdered By: Jovan Hutson on 07-10-2024 Bacteria Auto Ql (U) None seen [HPF] None Seen [facility] Basic Metabolic Panelon 06-28 Creatinine Clr Calc Pharmacy 115.15 Normal [facility] Comment on above: Performed By: #### C BC, BMP, PT, PTT, HEPATIC, LIPASE #### [address] GFR/1.73 sq M.predicted MDRD (S/P/Bld) [Vol rate/Area] mL/min/{1.73_m2} Normal [facility] Comment on above: Performed By: #### C BC, BMP, PT, PTT, HEPATIC, LIPASE #### [address] Bilirubin Test strip Ql (U)O rdered By: Jovan Hutson on 07-10-2024 Bilirubin Ql (U) Negative Negative [facility] Bilirubin.direct [Mass/volum e] in Serum or PlasmaOrdered By: Jovan Hutson on 07-10-2024 Bilirubin.direct [Mass/Vol] 0.10 mg/dL 0.03-0.18 [facility] Bilirubin.total [Mass/volume ] in Serum or PlasmaOrdered By: Jovan Hutson on 07-10-2024 Bilirubin [Mass/Vol] 0.4 mg/dL Normal 0.3-1.0 [facility] Comment on above: Performed By: #### C BC, BMP, PT, PTT, HEPATIC, LIPASE #### [facility] [address] abdomen pelvis w conon CT abdomen pelvis w con [facility] Main [place] [address] [place] [address] CT Scan Report Signed Patient: Loy Hastings MR#: [id number] : 1980 Acct:[id number] Age/Sex: 43 / F ADM Date: 07/10/24 Loc: ER Room: Type: [facility] ER Attending Dr: Copies to: Jovan [...] Sarah Mistry M.D.07/10/2024 8:49 PM Dictation Location: [place] [address] Transcribed By: [facility] 07/10/242048 Dictated By: Sarah Mistry MD 07/10/242043 Signed By: 07/10/242048 Normal [facility] Calcium [Mass/volume] in Ser um or PlasmaOrdered By: Jovan Hutson on 07-10-2024 Calcium [Mass/Vol] 9.5 mg/dL Normal 8.6-10.3 [facility] Comment on above: Performed By: #### C BC, BMP, PT, PTT, HEPATIC, LIPASE #### [facility] [address] Carbon dioxide, total [Moles /volume] in Serum or PlasmaOrdered By: Jovan Hutson on 07-10-2024 CO2 [Moles/Vol] 29.7 mmol/L Normal 21.0-31.0 [facility] Comment on above: Performed By: #### C BC, BMP, PT, PTT, HEPATIC, LIPASE #### [facility] [address] [place] [address] [place] Chloride [Moles/volume] in S brian or PlasmaOrdered By: Jovan Hutson on 07-10-2024 Chloride [Moles/Vol] 105 mmol/L Normal 98-107 [facility] Comment on above: Performed By: #### C BC, BMP, PT, PTT, HEPATIC, LIPASE #### [facility] [address] [place] [address] [place] Color of Urine by AutoOrdere d By: Jovan Hutson on 07-10-2024 Color (U) Light-yellow Normal Yellow [facility] Comment on above: Order Comment: Name Collection Type:: Clean-Voided Midstream Performed By: #### A DDONUAPLUS #### [address] Complete Blood Count Auto Di ffon 07-10-2024 Mean Corpuscular HGB Conc 32.1 g/dL Normal 32.0-35.0 [facility] Comment on above: Performed By: #### C BC, BMP, PT, PTT, HEPATIC, LIPASE #### [address] Monocytes/100 WBC (Bld) 20.46 % High 0.00-20.00 [facility] Comment on above: Result Comment: For adults in ED, MDW > 20.0 may be associated with a higher risk of sepsis during the first 12 hrs of hospital admission Performed By: #### C BC, BMP, PT, PTT, HEPATIC, LIPASE #### [address] NRBC% 0.1 /100{WBC} Normal 0-0.5 [facility] Comment on above: Performed By: #### C BC, BMP, PT, PTT, HEPATIC, LIPASE #### [address] Creatinine [Mass/volume] in Serum or PlasmaOrdered By: Jovan Hutson on 07-10-2024 Creatinine [Mass/Vol] 0.83 mg/dL Normal 0.60-1.20 [facility] Comment on above: Performed By: #### C BC, BMP, PT, PTT, HEPATIC, LIPASE #### [address] Dipstick and Microscopicon 0 07-10-2024 Bacteria,Urine None Seen Normal None Seen [facility] Comment on above: Order Comment: Name Collection Type:: Clean-Voided Midstream Performed By: #### A DDONUAPLUS #### [address] Bilirubin,Urine Negative Normal Negative [facility] Comment on above: Order Comment: Name Collection Type:: Clean-Voided Midstream Performed By: #### A DDONUAPLUS #### [address] Glucose Ql (U) Normal Normal Normal [facility] Comment on above: Order Comment: Name Collection Type:: Clean-Voided Midstream Performed By: #### A DDONUAPLUS #### [place] [address] [place] Hyaline Casts,Urine None Normal 0-8 [facility] Comment on above: Order Comment: Name Collection Type:: Clean-Voided Midstream Performed By: #### A DDONUAPLUS #### [place] [address] [place] Mucus,Urine Rare Normal [facility] Comment on above: Order Comment: Name Collection Type:: Clean-Voided Midstream Result Comment: PERF ORMED BY: [place] [address] PATHOLOGIST INDUSTRIAL SERVICE TECHNICIAN MARTY SALGADO M.D. Performed By: #### A DDONUAPLUS #### [place] [address] [place] Nitrite,Urine Negative Normal Negative [facility] Comment on above: Order Comment: Name Collection Type:: Clean-Voided Midstream Performed By: #### A DDONUAPLUS #### [place] [address] [place] Occult Blood,Urine 1+ High Negative [facility] Comment on above: Order Comment: Name Collection Type:: Clean-Voided Midstream Performed By: #### A DDONUAPLUS #### [place] [address] [place] Protein,Urine Negative Normal Negative [facility] Comment on above: Order Comment: Name Collection Type:: Clean-Voided Midstream Performed By: #### A DDONUAPLUS #### [place] [address] [place] RBC,Urine 1-2 Normal 0-4 [facility] Group Comment on above: Order Comment: Name Collection Type:: Clean-Voided Midstream Performed By: #### A DDONUAPLUS #### [place] [address] [place] Specificy Newborn,Urine > 1.050 High 1.00 1-1.03 0 [facility] Comment on above: Order Comment: Name Collection Type:: Clean-Voided Midstream Result Comment: Rech ecked by refractometer Performed By: #### A DDONUAPLUS #### [place] [address] [place] Squamous Epithelial Cell,Urine 3-4 High 0-2 [facility] Comment on above: Order Comment: Name Collection Type:: Clean-Voided Midstream Performed By: #### A DDONUAPLUS #### [address] Urobilinogen,Urine Normal Normal Normal [facility] Comment on above: Order Comment: Name Collection Type:: Clean-Voided Midstream Performed By: #### A DDONUAPLUS #### [place] [address] [place] WBC,Urine 1-2 Normal 0-4 [facility] Comment on above: Order Comment: Name Collection Type:: Clean-Voided Midstream Performed By: #### A DDONUAPLUS #### [address] ECG 12 lead ECGon 07-10-2024 ECG 12 lead ECG [facility] [place] [address] Electrocardiograph Report Signed Patient: Loy Hastings MR#: [id number] : 1980 Acct:[id number] Age/Sex: 43 / F ADM Date: 07/10/24 Loc: ER Room: Type: [facility] ER Attending Dr: Ordering Provider: Jovan [...] change was found Confirmed by Lee Burnette ([id number]) on 07/13/2024 1:07:36 PM Referred By: Electronically Signed By: Lee Burnette Transcribed By: MUS Signed By Lee Burnette MD 07/13/24 1307 Normal [facility] Epithelial cells.squamous [# /area] in Urine sediment by Automated countOrdered By: Jovan Hutson on 07-10-2024 Epithelial cells.squamous Auto (Urine sed) [#/Area] 3-4 [HPF] High 0-2 [facility] Erythrocyte distribution wid th [Ratio] by Automated countOrdered By: Jovan Hutson on 07-10-2024 Erythrocyte distribution width (RBC) [Ratio] 15.2 % Normal 11.9-15.3 [facility] Comment on above: Performed By: #### C BC, BMP, PT, PTT, HEPATIC, LIPASE #### [facility] [address] Erythrocytes [#/area] in Uri ne sediment by Automated countOrdered By: Jovan Hutson on 07-10-2024 RBC Auto (Urine sed) [#/Area] 1-2 [HPF] 0-4 [facility] Erythrocytes [#/volume] in B lood by Automated countOrdered By: Jovan Hutson on 07-10-2024 RBC (Bld) [#/Vol] 5.73 10*6/uL High 3.60-5.00 [facility] Comment on above: Performed By: #### C BC, BMP, PT, PTT, HEPATIC, LIPASE #### [facility] [address] [place] [address] [place] Glucose [Mass/volume] in Ser um or PlasmaOrdered By: Jovan Hutson on 07-10-2024 Glucose [Mass/Vol] 85 mg/dL Normal 70-100 [facility] Comment on above: ADA recommended refe rence rangeRandom Glucose Reference Range is dependent on time and content of last meal. Glucose of more than 200 mg/dL in a nonstressed, ambulatory subject supports the diagnosis of Diabetes Mellitus. Result Comment: [place] Glucose Reference Range is dependent on time and content of last meal. Glucose of more than 200 mg/dL in a nonstressed, ambulatory subject supports the diagnosis of Diabetes Mellitus. ADA recommended reference range Performed By: #### C BC, BMP, PT, PTT, HEPATIC, LIPASE #### [address] Glucose [Mass/volume] in Uri ne by Test stripOrdered By: Jovan Hutson on 07-10-2024 Glucose Test strip (U) [Mass/Vol] Normal mg/dL Normal [facility] Hematocrit [Volume Fraction] of Blood by Automated countOrdered By: Jovan Hutson on 07-10-2024 Hematocrit (Bld) [Volume fraction] 43.3 % Normal 34.0-46.4 [facility] Comment on above: Performed By: #### C BC, BMP, PT, PTT, HEPATIC, LIPASE #### [address] Hemoglobin Test strip Ql (U) Ordered By: Jovan Hutson on 07-10-2024 Hemoglobin Ql (U) 1+ High Negative [facility] Hemoglobin [Mass/volume] in BloodOrdered By: Jovan Hutson on 07-10-2024 Hemoglobin (Bld) [Mass/Vol] 13.9 g/dL Normal 11.8-15.4 [facility] Comment on above: Performed By: #### C BC, BMP, PT, PTT, HEPATIC, LIPASE #### [facility] [address] Hepatic Panelon 07-10-2024 Albumin [Mass/Vol] 4.2 g/dL Normal 3.5-5.7 [facility] Comment on above: Performed By: #### C BC, BMP, PT, PTT, HEPATIC, LIPASE #### [address] Bilirubin,Indirect 0.3 mg/dL Normal [facility] Comment on above: Performed By: #### C BC, BMP, PT, PTT, HEPATIC, LIPASE #### [facility] [address] Bilirubin.indirect [Mass/Vol] 0.10 mg/dL Normal 0.03-0.18 [facility] Comment on above: Performed By: #### C BC, BMP, PT, PTT, HEPATIC, LIPASE #### [facility] [address] Hyaline casts [#/area] in Ur ine sediment by Automated countOrdered By: Jovan Hutson on 07-10-2024 Hyaline casts Auto (Urine sed) [#/Area] None [LPF] 0-8 [facility] INR in Platelet poor plasma by Coagulation assayOrdered By: Jovan Hutson on 07-10-2024 INR Coag (PPP) [Relative time] 1.1 {INR} Normal [facility] Comment on above: INR Therapeutic [...] valves: 3 - 4.5 Performed By: #### C BC, BMP, PT, PTT, HEPATIC, LIPASE #### [facility] [address] Ketones [Presence] in Urine by Test stripOrdered By: Jovan Hutson on 07-10-2024 Ketones Ql (U) Negative Normal Negative [facility] Comment on above: Order Comment: Name Collection Type:: Clean-Voided Midstream Performed By: #### A DDONUAPLUS #### [address] Leukocyte esterase [Presence ] in Urine by Test stripOrdered By: Jovan Hutson on 07-10-2024 Leukocyte esterase Test strip Ql (U) Negative Normal Negative [facility] Comment on above: Order Comment: Name Collection Type:: Clean-Voided Midstream Performed By: #### A DDONUAPLUS #### [address] Leukocytes [#/area] in Urine sediment by Automated countOrdered By: Jovan Hutson on 07-10-2024 WBC Auto (Urine sed) [#/Area] 1-2 [HPF] 0-4 [facility] Leukocytes [#/volume] correc abdias for nucleated erythrocytes in Blood by Automated counOrdered By: Jovan Hutson on 07-10-2024 WBC corrected for nucl RBC Auto (Bld) [#/Vol] 8.5 10*3/uL 3.8-11.6 [facility] Leukocytes [#/volume] in Blo od by Automated countOrdered By: Jovan Hutson on 07-10-2024 WBC (Bld) [#/Vol] 8.5 10*3/uL Normal 3.8-11.6 [facility] Comment on above: Performed By: #### C BC, BMP, PT, PTT, HEPATIC, LIPASE #### [place] [address] [place] Lipase [Enzymatic activity/v olume] in Serum or PlasmaOrdered By: Jovan Hutson on 07-10-2024 Lipase [Catalytic activity/Vol] 15.0 U/L Normal 11.0-82.0 [facility] Comment on above: Result Comment: PERF ORMED BY: [place] [address] PATHOLOGIST INDUSTRI[employer] SERVICE TECHNICIAN MARTY SALGADO M.D. Performed By: #### C BC, BMP, PT, PTT, HEPATIC, LIPASE #### [address] Lymphocytes [#/volume] in Bl ood by Automated countOrdered By: Jovan Hutson on 07-10-2024 Lymphocytes (Bld) [#/Vol] 2.3 10*3/uL Normal 1.00-4.8 [facility] Comment on above: Performed By: #### C BC, BMP, PT, PTT, HEPATIC, LIPASE #### [facility] [address] [place] [address] Lymphocytes/100 leukocytes i n Blood by Automated countOrdered By: Jovan Hutson on 07-10-2024 Lymphocytes/100 WBC (Bld) 26.5 % Normal . [facility] Comment on above: Performed By: #### C BC, BMP, PT, PTT, HEPATIC, LIPASE #### [address] MCH [Entitic mass] by Automa abdias countOrdered By: Jovan Hutson on 07-10-2024 MCH (RBC) [Entitic mass] 24.3 pg Low 24.7-34.3 [facility] Comment on above: Performed By: #### C BC, BMP, PT, PTT, HEPATIC, LIPASE #### [facility] [address] [place] [address] MCHC Auto (RBC) [Mass/Vol]Or dered By: Jovan Hutson on 07-10-2024 MCHC (RBC) [Mass/Vol] 32.1 g/dL 32.0-35.0 [facility] MCV [Entitic volume] by Auto mated countOrdered By: Jovan Hutson on 07-10-2024 MCV (RBC) [Entitic vol] 75.5 fL Low 80-100 [facility] Comment on above: Performed By: #### C BC, BMP, PT, PTT, HEPATIC, LIPASE #### [facility] [address] [place] [address] Monocyte distribution width [Entitic volume] in Blood by AutomatedOrdered By: Jovan Hutson on 07-10-2024 Monocyte distribution width Auto (Bld) [Entitic vol] 20.46 % High 0.00-20.00 [facility] Comment on above: For adults in ED, MD W > 20.0 may be associated with a higher risk of sepsis during the first 12 hrs of hospital admission Mucus [Presence] in Urine by AutomatedOrdered By: Jovan Hutson on 07-10-2024 Mucus Auto Ql (U) Rare [LPF] [facility] Neutrophils [#/volume] in Bl ood by Automated countOrdered By: Jovan Hutson on 07-10-2024 Neutrophils (Bld) [#/Vol] 5.3 10*3/uL Normal 1.8-7.7 [facility] Comment on above: Performed By: #### C BC, BMP, PT, PTT, HEPATIC, LIPASE #### [facility] [address] [place] [address] Nitrite Test strip Ql (U)Ord ered By: Jovan Hutson on 07-10-2024 Nitrite Ql (U) Negative Negative [facility] No Panel InformationOrdered By: Jovan Hutson on 07-10-2024 Estimated GFR (CKD-EPI) > 60.0 mL/Min [facility] Creatinine Clearance (Chem 115.15 [facility] Nucleated erythrocytes [Pres ence] in Blood by Automated countOrdered By: Jovan Hutson on 07-10-2024 Nucleated RBC Auto Ql (Bld) 0.1 /100{WBC} 0-0.5 [facility] Partial Thromboplastin Timeo n 07-10-2024 aPTT Coag (Bld) [Time] 33.6 s Normal 25.1-36.5 [facility] Comment on above: Result Comment: A he matocrit value greater than 55% may lead to inaccurate results in coagulation testing. Patients having hematocrit values >55% require a special collection tube for coagulation studies. Please contact the laboratory at [phone] for redraw instructions. PERFORMED BY: [place] [address] PATHOLOGIST INDUSTRIAL SERVICE TECHNICIAN MARTY SALGADO M.D. Performed By: #### C BC, BMP, PT, PTT, HEPATIC, LIPASE #### [facility] [address] [place], [place] [id number] [facility] Platelet mean volume [Entiti c volume] in Blood by Automated countOrdered By: Jovan Hutson on 07-10-2024 Platelet mean volume (Bld) [Entitic vol] 7.4 fL Normal 6.3-10.7 [facility] Comment on above: Performed By: #### C BC, BMP, PT, PTT, HEPATIC, LIPASE #### [address] Platelets [#/volume] in Bloo d by Automated countOrdered By: Jovan Hutson on 07-10-2024 Platelets (Bld) [#/Vol] 358 10*3/uL Normal 150-450 [facility] Comment on above: Performed By: #### C BC, BMP, PT, PTT, HEPATIC, LIPASE #### [address] Potassium [Moles/volume] in Serum or PlasmaOrdered By: Jovan Hutson on 07-10-2024 Potassium [Moles/Vol] 3.7 mmol/L Normal 3.5-5.1 [facility] Comment on above: Performed By: #### C BC, BMP, PT, PTT, HEPATIC, LIPASE #### [address] Protein Test strip (U) [Mass /Vol]Ordered By: Jovan Hutson on 07-10-2024 Protein (U) [Mass/Vol] Negative Negative [facility] Protein [Mass/volume] in Ser um or PlasmaOrdered By: Jovan Hutson on 07-10-2024 Protein [Mass/Vol] 7.7 g/dL Normal 6.4-8.9 [facility] Comment on above: Performed By: #### C BC, BMP, PT, PTT, HEPATIC, LIPASE #### [address] Prothrombin time (PT)Ordered By: Jovan Hutson on 07-10-2024 PT Coag (PPP) [Time] 12.9 s Normal 9.0-12.9 [facility] Comment on above: A hematocrit value g reater than 55% may lead to inaccurate results in coagulation testing. Patients having hematocrit values >55% require a special collection tube for coagulation studies. Please contact the laboratory at [phone] for redraw instructions. Result Comment: A he matocrit value greater than 55% may lead to inaccurate results in coagulation testing. Patients having hematocrit values >55% require a special collection tube for coagulation studies. Please contact the laboratory at [phone] for redraw instructions. Performed By: #### C BC, BMP, PT, PTT, HEPATIC, LIPASE #### [address] Serum globulin measurement b y calculation (mass/volume)Ordered By: Jovan Hutson on 07-10-2024 Globulin (S) [Mass/Vol] 3.5 g/dL Normal [facility] Comment on above: Performed By: #### C BC, BMP, PT, PTT, HEPATIC, LIPASE #### [address] Serum or plasma albumin/glob ulin mass ratioOrdered By: Jovan Hutson on 07-10-2024 Albumin/Globulin [Mass ratio] 1.2 {ratio} Normal [facility] Comment on above: Performed By: #### C BC, BMP, PT, PTT, HEPATIC, LIPASE #### [address] Serum or plasma anion gap de terminationOrdered By: Jovan Hutson on 07-10-2024 Anion gap [Moles/Vol] 11.0 mmol/L Normal 6.0-15.0 [facility] Comment on above: Performed By: #### C BC, BMP, PT, PTT, HEPATIC, LIPASE #### [address] Serum or plasma non-glucuron idated bilirubin measurement (mass/volume)Ordered By: Jovan Hutson on 07-10-2024 Bilirubin.indirect [Mass/Vol] 0.3 mg/dL [facility] Sodium [Moles/volume] in Ser um or PlasmaOrdered By: Jovan Hutson on 07-10-2024 Sodium [Moles/Vol] 142 mmol/L Normal 136-145 [facility] Comment on above: Performed By: #### C BC, BMP, PT, PTT, HEPATIC, LIPASE #### [address] Specific gravity of Urine by RefractometryOrdered By: Jovan Hutson on 07-10-2024 Specific gravity Refractometry (U) [Rel density] > 1.050 High 1.001-1.03 0 [facility] Comment on above: Rechecked by refract ometer Urea nitrogen [Mass/volume] in Serum or PlasmaOrdered By: Jovan Hutson on 07-10-2024 Urea nitrogen [Mass/Vol] 8 mg/dL Normal 7-25 [facility] Comment on above: Performed By: #### C BC, BMP, PT, PTT, HEPATIC, LIPASE #### [address] Urine appearanceOrdered By: Jovan Hutson on 07-10-2024 Appearance (U) Clear Normal Clear [facility] Comment on above: Order Comment: Name Collection Type:: Clean-Voided Midstream Performed By: #### A DDONUAPLUS #### [address] Urobilinogen Test strip (U) [Mass/Vol]Ordered By: Jovan Hutson on 07-10-2024 Urobilinogen (U) [Mass/Vol] Normal mg/dL Normal [facility] pH of Urine by Test stripOrd ered By: Jovan Hutson on 07-10-2024 pH (U) 6.5 [pH] Normal 5.0-9.0 [facility] Comment on above: Order Comment: Name Collection Type:: Clean-Voided Midstream Performed By: #### A DDONUAPLUS #### [address] Ferritin [Mass/volume] in Se rum or PlasmaOrdered By: Teo Heath on 10-07-2023 Ferritin [Mass/Vol] 23.1 ng/mL 11.0-306.8 [facility] Iron [Mass/volume] in Serum or PlasmaOrdered By: Teo Heath on 10-07-2023 Iron [Mass/Vol] 48 ug/dL 50-212 [facility] Iron binding capacity [Mass/ volume] in Serum or PlasmaOrdered By: Teo Heath on 10-07-2023 Iron binding capacity [Mass/Vol] 389 ug/dL 255-450 [facility] Iron saturation [Mass Fracti on] in Serum or PlasmaOrdered By: Teo Heath on 10-07-2023 Iron saturation [Mass fraction] 12.3 % 20-50 [facility] Thyrotropin [Units/volume] i n Serum or PlasmaOrdered By: Teo Heath on 10-07-2023 TSH Qn 0.91 m[IU]/L 0.45-5.33 [facility] Transferrin [Mass/volume] in Serum or PlasmaOrdered By: Teo Heath on 10-07-2023 Transferrin [Mass/Vol] 278 mg/dL 203-362 [facility] Alanine aminotransferase [En zymatic activity/volume] in Serum or PlasmaOrdered By: Marquise Disla on 07-13-2023 ALT [Catalytic activity/Vol] 25 U/L 7-52 [facility] Albumin [Mass/volume] in Ser um or Plasma by Bromocresol green (BCG) dye binding methoOrdered By: Marquise Disla on 07-13-2023 Albumin BCG dye [Mass/Vol] 4.2 g/dL 3.5-5.7 [facility] Alkaline phosphatase [Enzyma tic activity/volume] in Serum or PlasmaOrdered By: Marquise Disla on 07-13-2023 ALP [Catalytic activity/Vol] 113 U/L 34-104 [facility] Aspartate aminotransferase [ Enzymatic activity/volume] in Serum or PlasmaOrdered By: Marquise Disla on 07-13-2023 AST [Catalytic activity/Vol] 13 U/L 13-39 [facility] Basophils Auto (Bld) [#/Vol] Ordered By: Marquise Disla on 07-13-2023 Basophils (Bld) [#/Vol] 0.1 10*3/uL 0.0-0.2 [facility] Basophils/100 WBC Auto (Bld) Ordered By: Marquise Disla on 07-13-2023 Basophils/100 WBC (Bld) 1.2 % . [facility] Bilirubin.total [Mass/volume ] in Serum or PlasmaOrdered By: Marquise Disla on 07-13-2023 Bilirubin [Mass/Vol] 0.6 mg/dL 0.3-1.0 [facility] Calcium [Mass/volume] in Ser um or PlasmaOrdered By: Marquise Disla on 07-13-2023 Calcium [Mass/Vol] 9.6 mg/dL 8.6-10.3 [facility] Carbon dioxide, total [Moles /volume] in Serum or PlasmaOrdered By: Marquise Disla on 07-13-2023 CO2 [Moles/Vol] 27.9 mmol/L 21.0-31.0 [facility] Chloride [Moles/volume] in S brian or PlasmaOrdered By: Marquise Disla on 07-13-2023 Chloride [Moles/Vol] 106 mmol/L 98-107 [facility] Cholesterol [Mass/volume] in Serum or PlasmaOrdered By: Marquise Disla on 07-13-2023 Cholesterol [Mass/Vol] 208 mg/dL 140-200 [facility] Comment on above: Chol less than 200 m g/dl low riskChol 201-239 mg/dl borderline riskChol 240 mg/dl and greater high risk Cholesterol in LDL Calc [Mas s/Vol]Ordered By: Marquise Disla on 07-13-2023 Cholesterol in LDL [Mass/Vol] 150 mg/dL 0-100 [facility] Comment on above: LDL ATP III CLASSIFI CATIONLDL less than 100 mg/dL OptimalLDL 100-129 mg/dL Near or above optimalLDL 130-159 mg/dL Borderline highLDL 160-189 mg/dL HighLDL greater than 189 mg/dL Very high Cholesterol in LDL [Mass/vol ume] in Serum or PlasmaOrdered By: Marquise Disla on 07-13-2023 Cholesterol in LDL [Mass/Vol] 171 mg/dL 0-100 [facility] Comment on above: LDL ATP III CLASSIFI CATIONLDL less than 100 mg/dL OptimalLDL 100-129 mg/dL Near or above optimalLDL 130-159 mg/dL Borderline highLDL 160-189 mg/dL HighLDL greater than 189 mg/dL Very high Cholesterol in VLDL Calc [Ma ss/Vol]Ordered By: Marquise Disla on 07-13-2023 Cholesterol in VLDL [Mass/Vol] 17 mg/dL [facility] Creatinine [Mass/volume] in Serum or PlasmaOrdered By: Marquise Disla on 07-13-2023 Creatinine [Mass/Vol] 0.69 mg/dL 0.60-1.20 [facility] Eosinophils Auto (Bld) [#/Vo l]Ordered By: Marquise Disla on 07-13-2023 Eosinophils (Bld) [#/Vol] 0.3 10*3/uL 0.0-0.45 [facility] Eosinophils/100 WBC Auto (Bl d)Ordered By: Marquise Disal on 07-13-2023 Eosinophils/100 WBC (Bld) 3.3 % . [facility] Erythrocyte distribution wid th Auto (RBC) [Ratio]Ordered By: Marquise Disla on 07-13-2023 Erythrocyte distribution width (RBC) [Ratio] 16.1 % 11.9-15.3 [facility] Globulin Calc (S) [Mass/Vol] Ordered By: Marquise Disla on 07-13-2023 Globulin (S) [Mass/Vol] 3.4 g/dL [facility] Glucose [Mass/volume] in Ser um or PlasmaOrdered By: Marquise Disla on 07-13-2023 Glucose [Mass/Vol] 87 mg/dL 70-100 [facility] Comment on above: ADA recommended refe rence rangeRandom Glucose Reference Range is dependent on time and content of last meal. Glucose of more than 200 mg/dL in a nonstressed, ambulatory subject supports the diagnosis of Diabetes Mellitus. Hematocrit Auto (Bld) [Volum e fraction]Ordered By: Marquise Disla on 07-13-2023 Hematocrit (Bld) [Volume fraction] 39.7 % 34.0-46.4 [facility] Hemoglobin [Mass/volume] in BloodOrdered By: Marquise Disla on 07-13-2023 Hemoglobin (Bld) [Mass/Vol] 12.8 g/dL 11.8-15.4 [facility] Leukocytes [#/volume] correc abdias for nucleated erythrocytes in Blood by Automated counOrdered By: Marquise Disla on 07-13-2023 WBC corrected for nucl RBC Auto (Bld) [#/Vol] 10.3 10*3/uL 3.8-11.6 [facility] Lymphocytes Auto (Bld) [#/Vo l]Ordered By: Marquise Disla on 07-13-2023 Lymphocytes (Bld) [#/Vol] 3.2 10*3/uL 1.00-4.8 [facility] Lymphocytes/100 WBC Auto (Bl d)Ordered By: Marquise Disla on 07-13-2023 Lymphocytes/100 WBC (Bld) 31.0 % . [facility] MCH Auto (RBC) [Entitic mass ]Ordered By: Marquise Disla on 07-13-2023 MCH (RBC) [Entitic mass] 23.1 pg 24.7-34.3 [facility] MCHC Auto (RBC) [Mass/Vol]Or dered By: Marquise Disla on 07-13-2023 MCHC (RBC) [Mass/Vol] 32.2 g/dL 32.0-35.0 [facility] MCV Auto (RBC) [Entitic vol] Ordered By: Marquise Disla on 07-13-2023 MCV (RBC) [Entitic vol] 71.6 fL 80-100 [facility] Monocytes Auto (Bld) [#/Vol] Ordered By: Marquise Disla on 07-13-2023 Monocytes (Bld) [#/Vol] 0.7 10*3/uL 0.0-0.8 [facility] Monocytes/100 WBC Auto (Bld) Ordered By: Marquise Disla on 07-13-2023 Monocytes/100 WBC (Bld) 6.5 % . [facility] Neutrophils Auto (Bld) [#/Vo l]Ordered By: Marquise Disla on 07-13-2023 Neutrophils (Bld) [#/Vol] 6.0 10*3/uL 1.8-7.7 [facility] Neutrophils/100 WBC Auto (Bl d)Ordered By: Marquise Disla on 07-13-2023 Neutrophils/100 WBC (Bld) 58.0 % . [facility] No Panel InformationOrdered By: Marquise Disla on 07-13-2023 Estimated GFR (CKD-EPI) > 60.0 mL/Min [facility] Creatinine Clearance (Chem N/A [facility] Nucleated erythrocytes [Pres ence] in Blood by Automated countOrdered By: Marquise Disla on 07-13-2023 Nucleated RBC Auto Ql (Bld) 0.2 /100{WBC} 0-0.5 [facility] Platelet mean volume Auto (B ld) [Entitic vol]Ordered By: Marqiuse Disla on 07-13-2023 Platelet mean volume (Bld) [Entitic vol] 7.2 fL 6.3-10.7 [facility] Platelets Auto (Bld) [#/Vol] Ordered By: Marquise Disla on 07-13-2023 Platelets (Bld) [#/Vol] 394 10*3/uL 150-450 [facility] Potassium [Moles/volume] in Serum or PlasmaOrdered By: Marquise Disla on 07-13-2023 Potassium [Moles/Vol] 4.3 mmol/L 3.5-5.1 [facility] Protein [Mass/volume] in Ser um or PlasmaOrdered By: Marquise Disla on 07-13-2023 Protein [Mass/Vol] 7.6 g/dL 6.4-8.9 [facility] RBC Auto (Bld) [#/Vol]Ordere d By: Marquise Disla on 07-13-2023 RBC (Bld) [#/Vol] 5.55 10*6/uL 3.60-5.00 [facility] Serum or plasma albumin/glob ulin mass ratioOrdered By: Marquise Disla on 07-13-2023 Albumin/Globulin [Mass ratio] 1.2 {ratio} [facility] Serum or plasma anion gap de terminationOrdered By: Marquise Disla on 07-13-2023 Anion gap [Moles/Vol] 11.4 mmol/L 6.0-15.0 [facility] Serum or plasma high density lipoprotein (HDL) cholesterol measurementOrdered By: Marquise Disla on 07-13-2023 Cholesterol in HDL [Mass/Vol] 40 mg/dL 23-92 [facility] Comment on above: HDL CHOL ATP-III CLA SSIFICATION Cardiovascular RiskHDL > or equal to 60 mg/dL LOWHDL < 40 mg/dL HIGH Serum or plasma total choles terol/high density lipoprotein (HDL) cholesterol mass ratOrdered By: Marquise Disla on 07-13-2023 Cholesterol.total/Candy sterol in HDL [Mass ratio] 5.2 {ratio} <5.0 [facility] Sodium [Moles/volume] in Ser um or PlasmaOrdered By: Marquise Disla on 07-13-2023 Sodium [Moles/Vol] 141 mmol/L 136-145 [facility] Triglyceride [Mass/volume] i n Serum or PlasmaOrdered By: Marquise Disla on 07-13-2023 Triglyceride [Mass/Vol] 88 mg/dL 0-149 [facility] Comment on above: TRIG ATP III CLASSIF ICATIONTRIG less than 150 mg/dL NormalTRIG 150-199 mg/dL Borderline highTRIG 200-500 mg/dL High TRIG greater than 500 mg/dL Very highStandard traceable to the Center for Disease Conrtrol and Prevention (CDC) test method. Urea nitrogen [Mass/volume] in Serum or PlasmaOrdered By: Marquise Disla on 07-13-2023 Urea nitrogen [Mass/Vol] 10 mg/dL 7-25 [facility] Vitamin B12 ser/plasOrdered By: Marquise Disla on 07-13-2023 Cobalamin (Vitamin B12) [Mass/Vol] 324 pg/mL 180-914 [facility] WBC Auto (Bld) [#/Vol]Ordere d By: Marquise Disla on 07-13-2023 WBC (Bld) [#/Vol] 10.3 10*3/uL 3.8-11.6 [facility] Automated erythrocytes count in urine sediment (number/area)Ordered By: Agustin Sandra on 07-01-2023 RBC Auto (Urine sed) [#/Area] 5-9 [HPF] 0-4 [facility] Automated leukocytes count i n urine sediment (number/area)Ordered By: Agustin Sandra on 07-01-2023 WBC Auto (Urine sed) [#/Area] 0-1 [HPF] 0-4 [facility] Basophils Auto (Bld) [#/Vol] Ordered By: Agustin Sandra on 07-01-2023 Basophils (Bld) [#/Vol] 0.1 10*3/uL 0.0-0.2 [facility] Basophils/100 WBC Auto (Bld) Ordered By: Agustin Sandra on 07-01-2023 Basophils/100 WBC (Bld) 0.6 % . F [facility] Bilirubin Test strip Ql (U)O rdered By: Agustin Sandra on 07-01-2023 Bilirubin Ql (U) Negative Negative [facility] Calcium [Mass/volume] in Ser um or PlasmaOrdered By: Agustin Sandra on 07-01-2023 Calcium [Mass/Vol] 9.3 mg/dL 8.6-10.3 [facility] Carbon dioxide, total [Moles /volume] in Serum or PlasmaOrdered By: Agustin Sandra on 07-01-2023 CO2 [Moles/Vol] 27.9 mmol/L 21.0-31.0 [facility] Chloride [Moles/volume] in S brian or PlasmaOrdered By: Agustin Sandra on 07-01-2023 Chloride [Moles/Vol] 104 mmol/L 98-107 [facility] Color Auto (U)Ordered By: Naun Sandra on 07-01-2023 Color (U) Yellow Yellow [facility] Creatinine [Mass/volume] in Serum or PlasmaOrdered By: Agustin Sandra on 07-01-2023 Creatinine [Mass/Vol] 0.79 mg/dL 0.60-1.20 [facility] Eosinophils Auto (Bld) [#/Vo l]Ordered By: Agustin Sandra on 07-01-2023 Eosinophils (Bld) [#/Vol] 0.1 10*3/uL 0.0-0.45 [facility] Eosinophils/100 WBC Auto (Bl d)Ordered By: Agustin Sandra on 07-01-2023 Eosinophils/100 WBC (Bld) 1.1 % . [facility] Erythrocyte distribution wid th Auto (RBC) [Ratio]Ordered By: Agustin Sandra on 07-01-2023 Erythrocyte distribution width (RBC) [Ratio] 16.1 % 11.9-15.3 [facility] Glucose [Mass/volume] in Ser um or PlasmaOrdered By: Agustin Sandra on 07-01-2023 Glucose [Mass/Vol] 92 mg/dL 70-100 [facility] Comment on above: ADA recommended refe rence rangeRandom Glucose Reference Range is dependent on time and content of last meal. Glucose of more than 200 mg/dL in a nonstressed, ambulatory subject supports the diagnosis of Diabetes Mellitus. HCG ( test) IA.rapi d Ql (U)Ordered By: Agustin Sandra on 07-01-2023 HCG ( test) Ql (U) Negative [facility] Hematocrit Auto (Bld) [Volum e fraction]Ordered By: Agustin Sandra on 07-01-2023 Hematocrit (Bld) [Volume fraction] 38.1 % 34.0-46.4 [facility] Hemoglobin [Mass/volume] in BloodOrdered By: Agustin Sandra on 07-01-2023 Hemoglobin (Bld) [Mass/Vol] 12.3 g/dL 11.8-15.4 [facility] Ketones Auto test strip (U) [Mass/Vol]Ordered By: Agustin Sandra on 07-01-2023 Ketones (U) [Mass/Vol] Negative Negative [facility] - UrinalysisOrder ed By: Agustin Sandra on 07-01-2023 Hyaline casts LM Ql (Urine sed) None seen [LPF] 0-8 [facility] Leukocytes [#/volume] correc abdias for nucleated erythrocytes in Blood by Automated counOrdered By: Agustin Sandra on 07-01-2023 WBC corrected for nucl RBC Auto (Bld) [#/Vol] 8.2 10*3/uL 3.8-11.6 [facility] Lymphocytes Auto (Bld) [#/Vo l]Ordered By: Agustin Sandra on 07-01-2023 Lymphocytes (Bld) [#/Vol] 0.7 10*3/uL 1.00-4.8 [facility] Lymphocytes/100 WBC Auto (Bl d)Ordered By: Agustin Sandra on 07-01-2023 Lymphocytes/100 WBC (Bld) 8.1 % . [facility] MCH Auto (RBC) [Entitic mass ]Ordered By: Agustin Sandra on 07-01-2023 MCH (RBC) [Entitic mass] 23.0 pg 24.7-34.3 [facility] MCHC Auto (RBC) [Mass/Vol]Or dered By: Agustni Sandra on 07-01-2023 MCHC (RBC) [Mass/Vol] 32.3 g/dL 32.0-35.0 [facility] MCV Auto (RBC) [Entitic vol] Ordered By: Agustin Sandra on 07-01-2023 MCV (RBC) [Entitic vol] 71.2 fL 80-100 [facility] Monocyte distribution width [Entitic volume] in Blood by AutomatedOrdered By: Agustin Sandra on 07-01-2023 Monocyte distribution width Auto (Bld) [Entitic vol] 24.10 % 0.00-20.00 [facility] Comment on above: For adults in ED, MD W > 20.0 may be associated with a higher risk of sepsis during the first 12 hrs of hospital admission Monocytes Auto (Bld) [#/Vol] Ordered By: Agustin Sandra on 07-01-2023 Monocytes (Bld) [#/Vol] 0.7 10*3/uL 0.0-0.8 [facility] Monocytes/100 WBC Auto (Bld) Ordered By: Agustni Sandra on 07-01-2023 Monocytes/100 WBC (Bld) 8.5 % . [facility] Neutrophils Auto (Bld) [#/Vo l]Ordered By: Agustin Sandra on 07-01-2023 Neutrophils (Bld) [#/Vol] 6.7 10*3/uL 1.8-7.7 [facility] Neutrophils/100 WBC Auto (Bl d)Ordered By: Agustin Sandra on 07-01-2023 Neutrophils/100 WBC (Bld) 81.7 % . [facility] Nitrite Test strip Ql (U)Ord ered By: Agustin Sandra on 07-01-2023 Nitrite Ql (U) Negative Negative [facility] No Panel InformationOrdered By: Agustin Sandra on 07-01-2023 Estimated GFR (CKD-EPI) > 60.0 mL/Min [facility] Creatinine Clearance (Chem 127.26 [facility] Nucleated erythrocytes [Pres ence] in Blood by Automated countOrdered By: Agustin Sandra on 07-01-2023 Nucleated RBC Auto Ql (Bld) 0.0 /100{WBC} 0-0.5 [facility] Platelet mean volume Auto (B ld) [Entitic vol]Ordered By: Agustin Sandra on 07-01-2023 Platelet mean volume (Bld) [Entitic vol] 7.4 fL 6.3-10.7 [facility] Platelets Auto (Bld) [#/Vol] Ordered By: Agustin Sandra on 07-01-2023 Platelets (Bld) [#/Vol] 320 10*3/uL 150-450 [facility] Potassium [Moles/volume] in Serum or PlasmaOrdered By: Agustin Sandra on 07-01-2023 Potassium [Moles/Vol] 3.9 mmol/L 3.5-5.1 [facility] Protein Auto test strip (U) [Mass/Vol]Ordered By: Agustin Sandra on 07-01-2023 Protein (U) [Mass/Vol] Negative Negative [facility] RBC Auto (Bld) [#/Vol]Ordere d By: Agustin Sandra on 07-01-2023 RBC (Bld) [#/Vol] 5.35 10*6/uL 3.60-5.00 [facility] Serum or plasma anion gap de terminationOrdered By: Agustin Sandra on 07-01-2023 Anion gap [Moles/Vol] 11.0 mmol/L 6.0-15.0 [facility] Sodium [Moles/volume] in Ser um or PlasmaOrdered By: Agustin Sandra on 07-01-2023 Sodium [Moles/Vol] 139 mmol/L 136-145 [facility] Specific gravity Auto test s trip (U) [Rel density]Ordered By: Agustin Sandra on 07-01-2023 Specific gravity (U) [Rel density] 1.012 1.001-1.03 0 [facility] Squamous epithelial cells de tection in urine sediment by light microscopyOrdered By: Agustin Sandra on 07-01-2023 Epithelial cells.squamous LM Ql (Urine sed) 0-1 [HPF] 0-2 [facility] Urea nitrogen [Mass/volume] in Serum or PlasmaOrdered By: Agustin Sandra on 07-01-2023 Urea nitrogen [Mass/Vol] 7 mg/dL 7-25 [facility] Urine bacteria detection by automated methodOrdered By: Agustin Sandra on 07-01-2023 Bacteria Auto Ql (U) None seen None Seen [facility] Urine clarity by refractomet ry automatedOrdered By: Agustin Sandra on 07-01-2023 Clarity Refractometry automated (U) Cloudy Clear [facility] Urine glucose measurement by automated test strip (mass/volume)Ordered By: Agustin Sandra on 07-01-2023 Glucose Auto test strip (U) [Mass/Vol] Normal mg/dL Normal [facility] Urine hemoglobin detection b y automated test stripOrdered By: Agustin Sandra on 07-01-2023 Hemoglobin Auto test strip Ql (U) Trace Negative [facility] Urine leukocyte esterase det ection by automated test stripOrdered By: Agustin Sandra on 07-01-2023 Leukocyte esterase Auto test strip Ql (U) Negative Negative [facility] Urobilinogen Auto test strip (U) [Mass/Vol]Ordered By: Agustin Sandra on 07-01-2023 Urobilinogen (U) [Mass/Vol] Normal mg/dL Normal [facility] WBC Auto (Bld) [#/Vol]Ordere d By: Agustin Sandra on 07-01-2023 WBC (Bld) [#/Vol] 8.2 10*3/uL 3.8-11.6 [facility] pH Auto test strip (U)Ordere d By: Agustin Sandra on 07-01-2023 pH (U) 8.5 [pH] 5.0-9.0 [facility] Basophils Auto (Bld) [#/Vol] Ordered By: Lars Guerra on 05-31-2023 Basophils (Bld) [#/Vol] 0.1 10*3/uL 0.0-0.2 [facility] Basophils/100 WBC Auto (Bld) Ordered By: Lars Guerra on 05-31-2023 Basophils/100 WBC (Bld) 1.5 % . F [facility] Calcium [Mass/volume] in Ser um or PlasmaOrdered By: Lars Guerra on 05-31-2023 Calcium [Mass/Vol] 9.1 mg/dL 8.6-10.3 [facility] Carbon dioxide, total [Moles /volume] in Serum or PlasmaOrdered By: Lars Guerra on 05-31-2023 CO2 [Moles/Vol] 29.3 mmol/L 21.0-31.0 [facility] Chloride [Moles/volume] in S brian or PlasmaOrdered By: Lras Guerra on 05-31-2023 Chloride [Moles/Vol] 106 mmol/L 98-107 [facility] Creatinine [Mass/volume] in Serum or PlasmaOrdered By: Lars Guerra on 05-31-2023 Creatinine [Mass/Vol] 0.87 mg/dL 0.60-1.20 [facility] Eosinophils Auto (Bld) [#/Vo l]Ordered By: Lars Guerra on 05-31-2023 Eosinophils (Bld) [#/Vol] 0.3 10*3/uL 0.0-0.45 [facility] Eosinophils/100 WBC Auto (Bl d)Ordered By: Lars Guerra on 05-31-2023 Eosinophils/100 WBC (Bld) 3.5 % . [facility] Erythrocyte distribution wid th Auto (RBC) [Ratio]Ordered By: Lars Guerra on 05-31-2023 Erythrocyte distribution width (RBC) [Ratio] 16.2 % 11.9-15.3 [facility] Glucose [Mass/volume] in Ser um or PlasmaOrdered By: Lars Guerra on 05-31-2023 Glucose [Mass/Vol] 91 mg/dL 70-100 [facility] Comment on above: ADA recommended refe rence rangeRandom Glucose Reference Range is dependent on time and content of last meal. Glucose of more than 200 mg/dL in a nonstressed, ambulatory subject supports the diagnosis of Diabetes Mellitus. Hematocrit Auto (Bld) [Volum e fraction]Ordered By: Lars Guerra on 05-31-2023 Hematocrit (Bld) [Volume fraction] 38.8 % 34.0-46.4 [facility] Hemoglobin [Mass/volume] in BloodOrdered By: Lars Guerra on 05-31-2023 Hemoglobin (Bld) [Mass/Vol] 12.4 g/dL 11.8-15.4 [facility] Leukocytes [#/volume] correc abdias for nucleated erythrocytes in Blood by Automated counOrdered By: Lars Guerra on 05-31-2023 WBC corrected for nucl RBC Auto (Bld) [#/Vol] 9.9 10*3/uL 3.8-11.6 [facility] Lymphocytes Auto (Bld) [#/Vo l]Ordered By: Lars Guerra on 05-31-2023 Lymphocytes (Bld) [#/Vol] 3.7 10*3/uL 1.00-4.8 [facility] Lymphocytes/100 WBC Auto (Bl d)Ordered By: Lars Guerra on 05-31-2023 Lymphocytes/100 WBC (Bld) 37.9 % . [facility] MCH Auto (RBC) [Entitic mass ]Ordered By: Lars Guerra on 05-31-2023 MCH (RBC) [Entitic mass] 23.0 pg 24.7-34.3 [facility] MCHC Auto (RBC) [Mass/Vol]Or dered By: Lars Guerra on 05-31-2023 MCHC (RBC) [Mass/Vol] 31.9 g/dL 32.0-35.0 [facility] MCV Auto (RBC) [Entitic vol] Ordered By: Lars Guerra on 05-31-2023 MCV (RBC) [Entitic vol] 72.0 fL 80-100 [facility] Monocyte distribution width [Entitic volume] in Blood by AutomatedOrdered By: Lars Guerra on 05-31-2023 Monocyte distribution width Auto (Bld) [Entitic vol] 18.79 % 0.00-20.00 [facility] Monocytes Auto (Bld) [#/Vol] Ordered By: Lars Guerra on 05-31-2023 Monocytes (Bld) [#/Vol] 0.5 10*3/uL 0.0-0.8 [facility] Monocytes/100 WBC Auto (Bld) Ordered By: Lars Guerra on 05-31-2023 Monocytes/100 WBC (Bld) 5.1 % . [facility] Neutrophils Auto (Bld) [#/Vo l]Ordered By: Lars Guerra on 05-31-2023 Neutrophils (Bld) [#/Vol] 5.1 10*3/uL 1.8-7.7 [facility] Neutrophils/100 WBC Auto (Bl d)Ordered By: Lars Guerra on 05-31-2023 Neutrophils/100 WBC (Bld) 52.0 % . [facility] No Panel InformationOrdered By: Lars Guerra on 05-31-2023 Estimated GFR (CKD-EPI) > 60.0 mL/Min [facility] Creatinine Clearance (Chem 112.72 [facility] Nucleated erythrocytes [Pres ence] in Blood by Automated countOrdered By: Lars Guerra on 05-31-2023 Nucleated RBC Auto Ql (Bld) 0.2 /100{WBC} 0-0.5 [facility] Platelet mean volume Auto (B ld) [Entitic vol]Ordered By: Lars Guerra on 05-31-2023 Platelet mean volume (Bld) [Entitic vol] 7.3 fL 6.3-10.7 [facility] Platelets Auto (Bld) [#/Vol] Ordered By: Lars Guerra on 05-31-2023 Platelets (Bld) [#/Vol] 349 10*3/uL 150-450 [facility] Potassium [Moles/volume] in Serum or PlasmaOrdered By: Lars Guerra on 05-31-2023 Potassium [Moles/Vol] 3.5 mmol/L 3.5-5.1 [facility] RBC Auto (Bld) [#/Vol]Ordere d By: Lars Guerra on 05-31-2023 RBC (Bld) [#/Vol] 5.39 10*6/uL 3.60-5.00 [facility] Serum or plasma anion gap de terminationOrdered By: Lars Guerra on 05-31-2023 Anion gap [Moles/Vol] 10.2 mmol/L 6.0-15.0 [facility] Sodium [Moles/volume] in Ser um or PlasmaOrdered By: Lars Guerra on 05-31-2023 Sodium [Moles/Vol] 142 mmol/L 136-145 [facility] Troponin I.cardiac [Mass/vol ume] in Serum or Plasma by Detection limit <= 0.01 ng/Ordered By: Lars Guerra on 05-31-2023 Troponin I.cardiac DL <= 0.01 ng/mL [Mass/Vol] 5.9 pg/mL 0.0-15.0 [facility] Urea nitrogen [Mass/volume] in Serum or PlasmaOrdered By: Lars Guerra on 05-31-2023 Urea nitrogen [Mass/Vol] 9 mg/dL 7-25 [facility] WBC Auto (Bld) [#/Vol]Ordere d By: Lars Guerra on 05-31-2023 WBC (Bld) [#/Vol] 9.9 10*3/uL 3.8-11.6 [facility] Serum heterophile antibody d etection by latex agglutinationOrdered By: Arnoldo Pérez on 01-19-2023 Heterophile Ab LA Ql (S) Negative Negative [facility] Streptococcus pyogenes antig en detectionOrdered By: Arnoldo Pérez on 01-19-2023 S. pyogenes Ag Ql (Unsp spec) [facility] COVID CepheidOrdered By: Radha Cooper on 01-08-2023 SARS-CoV-2 (COVID-19) Ab IA Ql Negative Negative [facility] Comment on above: This is a duplicate Cepsezmiid Xpert Xpress CoV-2/Flu/RSV Plus RNA by RT-PCR result to be used for statistical tracking purpose only. SARS-CoV-2 (COVID-19) RNA AMBROSE+probe Ql (Unsp spec) [facility] Streptococcus pyogenes antig en detectionOrdered By: Caitlyn Cooper on 01-04-2023 S. pyogenes Ag Ql (Unsp spec) [facility] COVID CepheidOrdered By: Cachorro Breaux on 11-17-2022 SARS-CoV-2 (COVID-19) Ab IA Ql Negative Negative [facility] Comment on above: This is a duplicate Cepheid Xpert Xpress CoV-2/Flu/RSV Plus RNA by RT-PCR result to be used for statistical tracking purpose only. SARS-CoV-2 (COVID-19) RNA AMBROSE+probe Ql (Unsp spec) [facility] SARS-CoV-2 (COVID-19) RNA AMBROSE+probe Ql (Unsp spec) [facility] COVID-19 SOFIAOrdered By: Jose Pearl on 08-23-2022 SARS-CoV+SARS-CoV-2 (COVID-19) Ag IA.rapid Ql (Resp) Negative Negative [facility] Comment on above: This is a duplicate Lilibeth SARS Antigen (REGINO) result to be used for statistical tracking purpose only. No Panel InformationOrdered By: Praveen Pearl on 08-23-2022 SARS Antigen (LFIA) [facility] POINT OF CARE GLUCOSEon 05-0 Glucose [Mass/Vol] 116 mg/dL Critically high 74-106 [facility] Comment on above: Performed By: #### P OCGLUC #### [facility] [address] [address] [address] Mai Salamanca PREG HCG QUALon 03-30-2022 , QUAL Negative Normal NEGATIVE [facility] Comment on above: Performed By: #### P REG #### [facility] [address] [address] [address] Mai Salamanca Vital Signs Date Time Vital Sign Value Performing Clinician Facility 04-08-2025 01:10-0400 Diastolic blood pressure 58 mm[Hg] Services [facility] [employer] Work Phone: [facility] 04-08-2025 01:10-0400 Heart rate 84 /min Services [facility] Work Phone: [facility] 04-08-2025 01:10-0400 Respiratory rate 16 /min Services [facility] Work Phone: [facility] 04-08-2025 01:10-0400 SaO2% (BldA) [Mass fraction] 98 % Services [facility] Work Phone: [facility] 04-08-2025 01:10-0400 Systolic blood pressure 139 mm[Hg] [facility] Work Phone: [facility] 04-07-2025 23:41-0400 Body height 176.53 cm [facility] Work Phone: [facility] 04-07-2025 23:41-0400 Body temperature 98.3 [degF] [facility] Work Phone: [facility] 04-07-2025 23:41-0400 Body weight 110.6 kg [facility] Work Phone: [facility] 04-03-2025 05:00-0400 Diastolic blood pressure 66 mm[Hg] [facility] Work Phone: [facility] 04-03-2025 05:00-0400 Heart rate 95 /min [facility] Work Phone: [facility] 04-03-2025 05:00-0400 Respiratory rate 20 /min [facility] Work Phone: [facility] 04-03-2025 05:00-0400 SaO2% (BldA) [Mass fraction] 100 % [facility] Work Phone: [facility] 04-03-2025 05:00-0400 Systolic blood pressure 128 mm[Hg] [facility] Work Phone: [facility] 04-03-2025 00:32-0400 Body height 176.53 cm [facility] Work Phone: [facility] 04-03-2025 00:32-0400 Body temperature 99.4 [degF] [facility] Work Phone: [facility] 04-03-2025 00:32-0400 Body weight 109.76 kg [facility] Work Phone: [facility] 03-28-2025 07:47-0400 Body height 176.53 cm [facility] Work Phone: [facility] 03-28-2025 07:47-0400 Body temperature 97.8 [degF] [facility] Work Phone: [facility] 03-28-2025 07:47-0400 Body weight 114 kg Services [employer] Work Phone: [facility] 03-28-2025 07:47-0400 Diastolic blood pressure 72 mm[Hg] Services [facility] [employer] Work Phone: [facility] 03-28-2025 07:47-0400 Heart rate 88 /min Services [facility] [employer] Work Phone: [facility] 03-28-2025 07:47-0400 Respiratory rate 20 /min Services [facility] Work Phone: [facility] 03-28-2025 07:47-0400 SaO2% (BldA) [Mass fraction] 98 % Services [facility] [employer] Work Phone: [facility] 03-28-2025 07:47-0400 Systolic blood pressure 144 mm[Hg] Services [facility] [employer] Work Phone: [facility] 03-19-2025 13:52-0400 Body mass index (BMI) [Ratio] 39.78 kg/m2 Raj Visci DO Work Phone: [facility] 03-19-2025 13:52-0400 Body weight 115.21 kg Raj Visci DO Work Phone: [facility] 03-19-2025 13:52-0400 Diastolic blood pressure 72 mm[Hg] Raj Visci DO Work Phone: [facility] 03-19-2025 13:52-0400 Systolic blood pressure 122 mm[Hg] Raj Visci DO Work Phone: [facility] 02-21-2025 13:14-0400 Body mass index (BMI) [Ratio] 38.22 kg/m2 Mariana Mccray MD Work Phone: [facility] 02-21-2025 13:14-0400 Body weight 110.68 kg Mariana Mccray MD Work Phone: [facility] 02-21-2025 13:14-0400 Diastolic blood pressure 80 mm[Hg] Mariana Mccray MD Work Phone: [facility] 02-21-2025 13:14-0400 Systolic blood pressure 138 mm[Hg] Mariana Mccray MD Work Phone: [facility] 01-10-2025 14:21-0500 Body mass index (BMI) [Ratio] 40.25 kg/m2 Mariana Mccray MD Work Phone: [facility] 01-10-2025 14:21-0500 Body weight 116.57 kg Mariana Mccray MD Work Phone: [facility] 12-05-2024 22:21-0500 Body height 175.26 cm [facility] Work Phone: [facility] 12-05-2024 22:21-0500 Body temperature 98.2 [degF] Services [facility] Work Phone: [facility] 12-05-2024 22:21-0500 Body weight 114.3 kg [facility] Work Phone: [facility] 12-05-2024 22:21-0500 Diastolic blood pressure 77 mm[Hg] [facility] Work Phone: [facility] 12-05-2024 22:21-0500 Heart rate 91 /min Services [facility] Work Phone: [facility] 12-05-2024 22:21-0500 Respiratory rate 16 /min [facility] Work Phone: [facility] 12-05-2024 22:21-0500 SaO2% (BldA) [Mass fraction] 100 % [facility] Work Phone: [facility] 12-05-2024 22:21-0500 Systolic blood pressure 136 mm[Hg] [facility] Work Phone: [facility] 08-23-2024 13:37-0400 Diastolic blood pressure 86 mm[Hg] Services [facility] Work Phone: [facility] 08-23-2024 13:37-0400 Heart rate 86 /min [facility] Work Phone: [facility] 08-23-2024 13:37-0400 Respiratory rate 16 /min [facility] Work Phone: [facility] 08-23-2024 13:37-0400 SaO2% (BldA) [Mass fraction] 100 % [facility] Work Phone: [facility] 08-23-2024 13:37-0400 Systolic blood pressure 130 mm[Hg] [facility] Work Phone: [facility] 08-23-2024 12:43-0400 Body height 175.26 cm [facility] Work Phone: [facility] 08-23-2024 12:43-0400 Body weight 111.58 kg [facility] Work Phone: [facility] 08-23-2024 12:40-0400 Body temperature 97.9 [degF] [facility] Work Phone: [facility] 08-07-2024 11:03-0400 Body height 176.53 cm [facility] Work Phone: [facility] 08-07-2024 11:03-0400 Body temperature 99 [degF] [facility] Work Phone: [facility] 08-07-2024 11:03-0400 Body weight 112 kg [facility] Work Phone: [facility] 08-07-2024 11:03-0400 Diastolic blood pressure 83 mm[Hg] [facility] Work Phone: [facility] 08-07-2024 11:03-0400 Heart rate 105 /min [facility] Work Phone: [facility] 08-07-2024 11:03-0400 Respiratory rate 18 /min [facility] Work Phone: [facility] 08-07-2024 11:03-0400 SaO2% (BldA) [Mass fraction] 100 % [facility] Work Phone: [facility] 08-07-2024 11:03-0400 Systolic blood pressure 155 mm[Hg] [facility] Work Phone: [facility] 07-10-2024 19:29-0400 Diastolic blood pressure 92 mm[Hg] [facility] Work Phone: [facility] 07-10-2024 19:29-0400 Heart rate 83 /min [facility] Work Phone: [facility] 07-10-2024 19:29-0400 Respiratory rate 18 /min [facility] Work Phone: [facility] 07-10-2024 19:29-0400 SaO2% (BldA) [Mass fraction] 99 % [facility] Work Phone: [facility] 07-10-2024 19:29-0400 Systolic blood pressure 143 mm[Hg] [facility] Work Phone: [facility] 07-10-2024 16:27-0400 Body height 175.26 cm [facility] Work Phone: [facility] 07-10-2024 16:27-0400 Body temperature 98.7 [degF] [facility] Work Phone: [facility] 07-10-2024 16:27-0400 Body weight 113.75 kg [facility] Work Phone: [facility] 07-01-2023 11:53-0400 Diastolic blood pressure 85 mm[Hg] [facility] Work Phone: [facility] 07-01-2023 11:53-0400 Heart rate 92 /min [facility] Work Phone: [facility] 07-01-2023 11:53-0400 Systolic blood pressure 149 mm[Hg] [facility] Work Phone: [facility] 07-01-2023 09:37-0400 Body height 176.53 cm [facility] Work Phone: [facility] 07-01-2023 09:37-0400 Body temperature 99.3 [degF] [facility] Work Phone: [facility] 07-01-2023 09:37-0400 Body weight 122.46 kg [facility] Work Phone: [facility] 07-01-2023 09:37-0400 Respiratory rate 24 /min [facility] Work Phone: [facility] 07-01-2023 09:37-0400 SaO2% (BldA) [Mass fraction] 99 % [facility] Work Phone: [facility] 06-19-2023 00:00-0400 Diastolic blood pressure 61 mm[Hg] [facility] Work Phone: [facility] 06-19-2023 00:00-0400 Heart rate 71 /min Services [facility] Health Work Phone: [facility] 06-19-2023 00:00-0400 Respiratory rate 20 /min Services [facility] Work Phone: [facility] 06-19-2023 00:00-0400 SaO2% (BldA) [Mass fraction] 100 % [facility] Work Phone: [facility] 06-19-2023 00:00-0400 Systolic blood pressure 129 mm[Hg] [facility] Work Phone: [facility] 06-18-2023 21:21-0400 Body height 175.26 cm [facility] Work Phone: [facility] 06-18-2023 21:21-0400 Body weight 117.02 kg [facility] Work Phone: [facility] 06-18-2023 21:20-0400 Body temperature 98.6 [degF] [facility] Work Phone: [facility] 06-03-2023 11:58-0400 Diastolic blood pressure 90 mm[Hg] [facility] Work Phone: [facility] 06-03-2023 11:58-0400 Heart rate 91 /min [facility] Work Phone: [facility] 06-03-2023 11:58-0400 Systolic blood pressure 145 mm[Hg] [facility] Work Phone: [facility] 05-31-2023 04:30-0400 Diastolic blood pressure 82 mm[Hg] [facility] Work Phone: [facility] 05-31-2023 04:30-0400 Heart rate 75 /min [facility] Work Phone: [facility] 05-31-2023 04:30-0400 Respiratory rate 20 /min [facility] Work Phone: [facility] 05-31-2023 04:30-0400 SaO2% (BldA) [Mass fraction] 98 % [facility] Work Phone: [facility] 05-31-2023 04:30-0400 Systolic blood pressure 150 mm[Hg] [facility] Work Phone: [facility] 05-30-2023 23:32-0400 Body height 176.53 cm [facility] Work Phone: [facility] 05-30-2023 23:32-0400 Body temperature 98.2 [degF] [facility] Work Phone: [facility] 05-30-2023 23:32-0400 Body weight 117.02 kg [facility] Work Phone: [facility] 04-18-2023 12:10-0400 Body temperature 98.2 [degF] [facility] Work Phone: [facility] 04-18-2023 12:10-0400 Diastolic blood pressure 91 mm[Hg] [facility] Work Phone: [facility] 04-18-2023 12:10-0400 Heart rate 86 /min [facility] Work Phone: [facility] 04-18-2023 12:10-0400 Respiratory rate 18 /min [facility] Work Phone: [facility] 04-18-2023 12:10-0400 SaO2% (BldA) [Mass fraction] 100 % [facility] Work Phone: [facility] 04-18-2023 12:10-0400 Systolic blood pressure 169 mm[Hg] [facility] Work Phone: [facility] 04-18-2023 12:06-0400 Body height 175.26 cm [facility] Work Phone: [facility] 04-18-2023 12:06-0400 Body weight 129.1 kg [facility] Work Phone: [facility] 01-19-2023 09:40-0500 Diastolic blood pressure 67 mm[Hg] [facility] Work Phone: [facility] 01-19-2023 09:40-0500 Heart rate 86 /min [facility] Work Phone: [facility] 01-19-2023 09:40-0500 Respiratory rate 20 /min [facility] Work Phone: [facility] 01-19-2023 09:40-0500 SaO2% (BldA) [Mass fraction] 100 % [facility] Work Phone: [facility] 01-19-2023 09:40-0500 Systolic blood pressure 145 mm[Hg] [facility] Work Phone: [facility] 01-19-2023 07:19-0500 Body height 175.26 cm [facility] Work Phone: [facility] 01-19-2023 07:19-0500 Body temperature 98 [degF] [facility] Work Phone: [facility] 01-19-2023 07:19-0500 Body weight 127.3 kg [facility] Work Phone: [facility] 01-08-2023 14:52-0500 Body height 176.53 cm [facility] Work Phone: [facility] 01-08-2023 14:52-0500 Body temperature 98.9 [degF] [facility] Work Phone: [facility] 01-08-2023 14:52-0500 Body weight 124.45 kg [facility] Work Phone: [facility] 01-08-2023 14:52-0500 Diastolic blood pressure 74 mm[Hg] [facility] Work Phone: [facility] 01-08-2023 14:52-0500 Heart rate 93 /min [facility] Work Phone: [facility] 01-08-2023 14:52-0500 Respiratory rate 20 /min [facility] Work Phone: [facility] 01-08-2023 14:52-0500 SaO2% (BldA) [Mass fraction] 98 % [facility] Work Phone: [facility] 01-08-2023 14:52-0500 Systolic blood pressure 143 mm[Hg] [facility] Work Phone: [facility] 01-04-2023 11:34-0500 Body height 175.26 cm [facility] Work Phone: [facility] 01-04-2023 11:34-0500 Body temperature 98.7 [degF] [facility] Work Phone: [facility] 01-04-2023 11:34-0500 Body weight 107.9 kg [facility] Work Phone: [facility] 01-04-2023 11:34-0500 Diastolic blood pressure 91 mm[Hg] [facility] Work Phone: [facility] 01-04-2023 11:34-0500 Heart rate 98 /min [facility] Work Phone: [facility] 01-04-2023 11:34-0500 Respiratory rate 18 /min [facility] Work Phone: [facility] 01-04-2023 11:34-0500 SaO2% (BldA) [Mass fraction] 100 % [facility] Work Phone: [facility] 01-04-2023 11:34-0500 Systolic blood pressure 165 mm[Hg] [facility] Work Phone: [facility] 11-17-2022 02:32-0500 Diastolic blood pressure 98 mm[Hg] [facility] Work Phone: [facility] 11-17-2022 02:32-0500 Heart rate 92 /min [facility] Work Phone: [facility] 11-17-2022 02:32-0500 Respiratory rate 18 /min [facility] Work Phone: [facility] 11-17-2022 02:32-0500 SaO2% (BldA) [Mass fraction] 98 % [facility] Work Phone: [facility] 11-17-2022 02:32-0500 Systolic blood pressure 168 mm[Hg] [facility] Work Phone: [facility] 11-16-2022 23:12-0500 Body height 176.53 cm [facility] Work Phone: [facility] 11-16-2022 23:12-0500 Body weight 126.35 kg [facility] Work Phone: [facility] 11-16-2022 23:11-0500 Body temperature 98.1 [degF] [facility] Work Phone: [facility] 09-17-2022 23:07-0400 Body height 175.26 cm [facility] Work Phone: [facility] 09-17-2022 23:07-0400 Body temperature 98.2 [degF] Services [employer] Work Phone: [facility] 09-17-2022 23:07-0400 Body weight 124.25 kg Services [employer] Work Phone: [facility] 09-17-2022 23:07-0400 Diastolic blood pressure 70 mm[Hg] Services [facility] [employer] Work Phone: [facility] 09-17-2022 23:07-0400 Heart rate 75 /min [facility] [employer] Work Phone: [facility] 09-17-2022 23:07-0400 Respiratory rate 18 /min Services [facility] Work Phone: [facility] 09-17-2022 23:07-0400 SaO2% (BldA) [Mass fraction] 94 % Services [facility] Work Phone: [facility] 09-17-2022 23:07-0400 Systolic blood pressure 153 mm[Hg] Services [facility] [employer] Work Phone: [facility] 08-23-2022 07:17-0400 Body height 175.26 cm DO Raj Visci Work Phone: [facility] 08-23-2022 07:17-0400 Body temperature 98.2 [degF] DO Raj Visci Work Phone: [facility] 08-23-2022 07:17-0400 Body weight 110.22 kg DO Raj Visci Work Phone: [facility] 08-23-2022 07:17-0400 Diastolic blood pressure 75 mm[Hg] DO Raj Visci Work Phone: [facility] 08-23-2022 07:17-0400 Heart rate 83 /min DO Raj Visci Work Phone: [facility] 08-23-2022 07:17-0400 Respiratory rate 18 /min DO Raj Visci Work Phone: [facility] 08-23-2022 07:17-0400 SaO2% (BldA) [Mass fraction] 100 % DO Raj Visci Work Phone: [facility] 08-23-2022 07:17-0400 Systolic blood pressure 145 mm[Hg] DO Raj Visci Work Phone: [facility] 07-13-2022 12:00-0400 Body height 175.26 cm Jase Olexa Other [facility] [employer] Other 07-13-2022 12:00-0400 Body mass index (BMI) [Ratio] 39.13 kg/m2 Jase Olexa Other [facility] [employer] Other 07-13-2022 12:00-0400 Body weight 120.2 kg Jase Olexa Other [facility] [employer] Other 07-06-2022 21:44-0400 Body height 176.53 cm DO Raj Visci Work Phone: [facility] 07-06-2022 21:44-0400 Body weight 112.49 kg DO Raj Visci Work Phone: [facility] 07-06-2022 21:43-0400 Body temperature 98.2 [degF] DO Raj Visci Work Phone: [facility] 07-06-2022 21:43-0400 Diastolic blood pressure 72 mm[Hg] DO Raj Visci Work Phone: [facility] 07-06-2022 21:43-0400 Heart rate 93 /min DO Raj Visci Work Phone: [facility] 07-06-2022 21:43-0400 Respiratory rate 17 /min DO Raj Visci Work Phone: [facility] 07-06-2022 21:43-0400 SaO2% (BldA) [Mass fraction] 100 % DO Raj Visci Work Phone: [facility] 07-06-2022 21:43-0400 Systolic blood pressure 135 mm[Hg] DO Raj Loaiza Work Phone: [facility] 2019 13:18-0500 BMI (Body Mass Index) 40.2 kg/m2 [facility] 2019 13:18-0500 Body Temperature 98.2 [degF] [facility] 13:18-0500 Body weight 127.3 kg Raj [facility] 2019 13:18-0500 BP Diastolic 81 mm[Hg] Raj [facility] 2019 13:18-0500 BP Systolic 143 mm[Hg] [facility] 2019 13:18-0500 Height 177.8 cm [facility] 2019 13:18-0500 Pulse (Heart Rate) 88 /min Raj [facility] 2019 13:18-0500 Pulse Oximetry 99 % [facility] 2019 13:18-0500 Respiratory Rate 17 /min [facility] Encounters Encounter Date Encounter Type Care Provider Facility Start: 04-10-2025 End: 04-10-2025 Patient encounter procedure [facility] Work Phone: [facility] Work Phone: Start: 04-10-2025 End: 04-10-2025 ambulatory [facility] Work Phone: [facility] Work Phone: Start: 04-10-2025 Encounter for other preprocedural examination Sneha Joe [facility] Start: 04-07-2025 End: 04-08-2025 Emergency department patient visit [facility] Work Phone: [facility] Work Phone: Start: 04-03-2025 End: 04-03-2025 Emergency department patient visit [facility] Work Phone: [facility] Work Phone: Start: 03-28-2025 End: 03-28-2025 Emergency department patient visit Services [facility] Work Phone: [facility] Work Phone: Start: 03-19-2025 End: 03-19-2025 ambulatory RAJ A VISCI Not Available Start: 03-19-2025 End: 03-19-2025 Office outpatient visit 25 minutes Raj A Visci DO Work Phone: [facility] Comment on above: Menorrhagia with irr egular cycle; Dysmenorrhea; Intrauterine device surveillance; Uterine prolapse Start: 02-27-2025 End: 02-27-2025 Orders Only Mariana Mccray MD Work Phone: [facility] Comment on above: Acute vaginitis (Tracee tanner Dx) Start: 02-21-2025 End: 02-21-2025 ambulatory MARIANA MCCRAY Not Available Start: 02-21-2025 End: 02-21-2025 Patient encounter procedure Mariana Mccray MD Work Phone: [facility] Comment on above: Irregular menses; Menorrhagia with irregular cycle; Dysmenorrhea Start: 01-23-2025 End: 01-23-2025 Bamboo flowsheet Mariana Mccray MD Work Phone: [facility] Start: 01-23-2025 End: 01-23-2025 Bamboo flowsheet Mariana Mccray MD Work Phone: [facility] Start: 01-23-2025 End: 01-23-2025 Office outpatient visit 15 minutes Mariana Mccray MD Work Phone: [facility] Comment on above: Irregular menses; Menorrhagia with irregular cycle; Dysmenorrhea; IUD check up Start: 01-23-2025 End: 01-23-2025 ambulatory MARIANA MCCRAY Not Available Start: 01-21-2025 End: 01-21-2025 ambulatory Alfie Dixon MD Facility: [facility] Start: 01-10-2025 End: 01-10-2025 Office outpatient visit 10 minutes Mariana Mccray MD Work Phone: [facility] Comment on above: Abnormal vaginal ble eding; IUD check up; Irregular menses; Dysmenorrhea Start: 01-10-2025 End: 01-10-2025 ambulatory MARIANA MCCRAY Not Available Start: 12-05-2024 End: 12-05-2024 Emergency department patient visit [facility] Work Phone: [facility] Work Phone: Start: 12-03-2024 End: 12-03-2024 Patient encounter procedure Services Family [facility] Work Phone: [facility] Work Phone: Start: 12-03-2024 End: 12-03-2024 ambulatory [facility] Work Phone: [facility] Work Phone: Start: 10-15-2024 [facility]ulatory [facility] Start: 10-08-2024 End: 10-08-2024 ambulatory Alfie Dixon MD Facility:[facility] Start: 09-07-2024 End: 09-07-2024 Patient encounter procedure Services Family [facility] Work Phone: [facility] [place] Work Phone: Start: 09-07-2024 End: 09-07-2024 ambulatory [facility] Work Phone: [facility] Work Phone: Start: 08-23-2024 End: 08-23-2024 Emergency department patient visit Services Family [facility] Work Phone: [facility] Work Phone: Start: 08-07-2024 End: 08-07-2024 Emergency department patient visit Services Family [facility] Work Phone: [facility] Work Phone: Start: 07-10-2024 End: 07-10-2024 Emergency department patient visit [facility] Work Phone: [facility] Work Phone: Start: 03-12-2024 End: 03-12-2024 ambulatory Alfie Dixon MD Facility: [facility] Start: 03-08-2024 End: 03-08-2024 ambulatory [facility] Work Phone: [facility] Work Phone: Start: 03-08-2024 End: 03-08-2024 Patient encounter procedure [facility] Work Phone: [facility]Ultrasound Cn[facility] for Breast Car Start: 02-27-2024 End: 02-27-2024 ambulatory Alfie Dixon MD Facility: [facility] Start: 02-06-2024 End: 02-06-2024 ambulatory Alfie Dixon MD Facility: [facility] Start: 12-02-2023 End: 12-02-2023 ambulatory [facility] Work Phone: [facility] Work Phone: Start: 12-02-2023 End: 12-02-2023 Patient encounter procedure [facility] Work Phone: [facility] Work Phone: Start: 10-07-2023 End: 10-07-2023 ambulatory [facility] Work Phone: [facility] Work Phone: Start: 10-07-2023 End: 10-07-2023 Patient encounter procedure [facility] Work Phone: [facility] [place] Work Phone: Start: 08-09-2023 End: 08-09-2023 ambulatory [facility] Work Phone: [facility] Work Phone: Start: 08-09-2023 End: 08-09-2023 Patient encounter procedure [facility] Work Phone: [facility]-Electrodiagnostics Work Phone: Start: 07-13-2023 End: 07-13-2023 ambulatory [facility] Work Phone: [facility] Work Phone: Start: 07-13-2023 End: 07-13-2023 Patient encounter procedure Services Family [facility] Work Phone: [facility] [place] Work Phone: Start: 07-01-2023 End: 07-01-2023 Emergency department patient visit Services [facility] Work Phone: [facility]-Emergency Room Work Phone: Start: 06-18-2023 End: 06-19-2023 Emergency department patient visit [facility] Work Phone: [facility]Emer[facility] Work Phone: Start: 06-14-2023 End: 06-14-2023 ambulatory Jase Rosenberg Other [employer] Other Start: 06-14-2023 Office outpatient vi sit 15 minutes Jase Rosenberg [facility] Start: 06-14-2023 End: 06-14-2023 Patient encounter procedure [facility] Work Phone: [facility] [place] [facility] Start: 06-03-[address] Marcos Gregory Facility:[id number] Start: 05-30-2023 End: 05-31-2023 Emergency department patient visit [facility] Work Phone: [facility]Emergency Room Work Phone: Start: 05-12-2023 ambulatory NARENDRANATH LAKSHMIPATHY . Facility:[facility] Start: 04-18-2023 End: 04-18-2023 Emergency department patient visit [facility] Work Phone: [facility]Emer[facility] Work Phone: Start: 02-10-2023 End: 02-11-[address] UZAIR LIGHT . Facility:[facility] Start: 01-19-2023 End: 01-19-2023 Emergency department patient visit [facility] Work Phone: [facility]Emergency Room Work Phone: Start: 01-08-2023 End: 01-08-2023 Emergency department patient visit [facility] Work Phone: [facility]Emergency Room Work Phone: Start: 01-04-2023 End: 01-04-2023 Emergency department patient visit [facility] Work Phone: [facility]Emergency Room Work Phone: Start: 11-16-2022 End: 11-17-2022 Emergency department patient visit [facility] Work Phone: [facility]Emergency Room Start: 11-04-2022 End: 11-05-[address] UZAIR LIGHT . Facility: Start: 10-12-2022 End: 10-12-2022 Patient encounter procedure Services Family [facility] Work Phone: [facility] Start: 09-17-2022 End: 09-18-2022 Emergency department patient visit [facility] Work Phone: [facility] Start: 08-23-2022 End: 08-23-2022 Emergency department patient visit DO Raj Yehi Work Phone: [facility] Start: 08-18-2022 End: 08-18-2022 Patient encounter procedure DO Raj Loaiza Work Phone: [facility] [address] Start: 07-13-2022 End: 07-13-2022 ambulatory Jase Rosenberg Other [facility] [employer] Other Start: 07-13-2022 Office outpatient ne w 45 minutes Jase Rosenberg [facility] Start: 07-08-2022 End: 07-09-[address] UZAIR LIGHT . Facility:[facility] Start: 07-06-2022 End: 07-06-2022 Emergency department patient visit DO Raj Visci Work Phone: [facility] Start: 04-15-2022 End: 04-16-[address] UZAIR LIGHT . Facility:[facility] Start: 03-30-2022 End: 03-30-[address] UZAIR LIGHT . Facility:[facility] Start: 01-08-2020 End: 01-08-2020 Patient encounter procedure Raj Visci -[facility]trasound [facility] [place] Start: 2019 End: 2019 Emergency department patient visit Raj Visci -Emergency Room Start: 09-17-2019 End: 09-17-2019 Emergency department patient visit Raj Visci -Emergency Room Start: 12-26-2018 End: 12-26-2018 Patient encounter procedure Raj Visci -XRay [address] Start: 02-02-2005 Evaluation and management of inpatient Raj Visci -[facility] Post Procedures Date Procedure Procedure Detail Performing Clinician Start: 04-10-2025 Antibody screen Teo polanco Comment on above: Result Comment: PERF ORMED BY: [facility] [address] [place] [address] PATHOLOGIST INDUSTRIAL SERVICE TECHNICIAN GALI WISE M.D. Start: 04-10-2025 Ultrasonography of l eft breast Services [employer] Work Phone: Start: 04-08-2025 Streptococcus pyogen es antigen assay [facility] [employer] Work Phone: Start: 04-03-2025 Bacteria identified in Blood by Culture [facility] [employer] Work Phone: Start: 04-03-2025 Plain chest X-ray Servi rachel [employer] Work Phone: Start: 03-28-2025 X-ray of left foot Serv ices [employer] Work Phone: Start: 12-05-2024 Plain X-ray of left forearm Services [employer] Phone: Start: 12-05-2024 Plain X-ray of left hand [facility] [employer] Phone: Start: 12-03-2024 Screening mammograph y of bilateral breasts [facility] [employer] Phone: Start: 08-07-2024 X-ray of right foot Ser vices [employer] Phone: Start: 07-10-2024 Computed tomography of abdomen and pelvis with contrast [facility] [employer] Phone: Start: 03-08-2024 Ultrasonography of b ilateral breasts [facility] [employer] Phone: Start: 12-02-2023 Screening mammograph y of bilateral breasts [facility] [employer] Phone: Start: 06-18-2023 CT of head without contrast [facility] [employer] Phone: Start: 06-18-2023 Plain X-ray of left shoulder [facility] [employer] Phone: Start: 06-14-2023 Plain X-ray of left wrist [facility] [employer] Phone: Start: 06-03-2023 Radionuclide myocard ial perfusion stress study [facility] [employer] Phone: Start: 05-31-2023 Plain chest X-ray Servi rachel [employer] Phone: Start: 04-18-2023 Plain X-ray of left wrist [facility] [employer] Phone: Start: 01-19-2023 Streptococcus pyogen es antigen assay [facility] [employer] Phone: Start: 01-08-2023 SARS-CoV-2, Influenz a & RSV (PCR) Services [employer] Phone: Start: 01-04-2023 Streptococcus pyogen es antigen assay Services [employer] Phone: Start: 11-17-2022 SARS-CoV-2, Influenz a & RSV (PCR) Services [employer] Phone: Start: 10-12-2022 X-ray of left ankle Ser vices [employer] Work Phone: Start: 08-18-2022 MRI of right knee DO Estrella mayo Visc[facility] Work Phone: Start: 07-06-2022 Plain X-ray of left wrist DO Raj Visci Work Phone: Start: 07-06-2022 X-ray of right knee DO Raj Visci Work Phone: Start: 01-08-2020 Duplex scan of lower limb veins Raj Visci Start: 2019 X-ray of left ankle Giovanni hard Visci H/O: section S/P DO Estrella mayo [facility]isc[facility] Work Phone: SARS Antigen (LFIA) DO Karen fowler [facility] Work Phone: SARS-CoV-2, Influenz a & RSV (PCR) Services [employer] Work Phone: Plan of Treatment Date Care Activity Detail Author Start: 04-03-2025 Bacteria identified in Blood by Culture Blood Culture [facility] Start: 04-03-2025 End: 04-03-2025 [facility] Start: 04-03-2025 Plain chest X-ray XR chest 1V portab le [facility] Start: 04-03-2025 XR Chest Single view [facility] Start: 03-19-2025 End: 03-19-2025 Patient encounter procedure 03/19/2025 1:30 PM EDT Consult [facility] [address] [place] [address] Visci, Raj A, DO [address] [place] [address] [facility] Start: 02-21-2025 End: 02-21-2025 Patient encounter procedure 02/21/2025 3:45 PM EDT Procedure Visit [facility] [address] [place] [address] Mariana Mccray MD [address] [place] [address] [facility] Start: 01-23-2025 End: 01-23-2025 Patient encounter procedure [facility] Comment on above: Irregular menses; Menorrhagia with irregular cycle; Dysmenorrhea; IUD check up Start: 01-23-2025 End: 01-23-2025 Professional / ancillary services management 01/23/2025 8:00 AM EST Ancillary Procedure [facility] [address] [place] [address] [facility] Start: 07-10-2024 [facility] Start: 06-18-2023 CT of head without contrast CT head/brain wo con [facility] Start: 06-18-2023 CT Unspecified body region WO contrast [facility] Start: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
== END 2025-04-16 09:42 | disposition home or self-care (01) ==
LOC: RAD 09:44
PROVIDERS: Visit Provider Podiatrist Foot & Ankle Surgery
DX: M79.672 Pain in left foot (principal); M24.672 Ankylosis, left ankle
CPT/HCPCS: 73630

== ENCOUNTER 2025-04-17 10:06 | Outpatient (OUT) | payer MEDICARE, MEDICAID, SELFPAY ==
--- OUTSIDE RECORDS SUMMARY | 2025-04-17 10:13 | XMS_ITS | CCD ---
Author Organization [facility] Care Team Providers Care Intelligence Clerk Name Role Phone Raj Loaiza Attending Provider Unavailable [facility] Primary Care Provider Un available Shayy, Lars Attending Provider Unavailable Jase Rosenberg Unavailable DO Raj Loaiza Attending Provider [phone] [facility] Primary Care Provider LUIS Elliott Emergency Provider MD Jase Rosenberg Attending Provider [phone] DO Praveen Pearl Emergency Provider [phone] MD Ayan Andrade Emergency Provider DO Raj Loaiza Attending Provider [facility] Primary Care Provider [phone] DO Praveen Pearl Emergency Provider [phone] MD Ayan Andrade Emergency Provider [phone] DIONNE Garcia Attending Provider MD Jase Breaux Jr Emergency Provider [facility] Primary Care Provider [phone] Kenneth [facility] Caitlyn Tuttle Emergency Provider [facility] Primary Care Provider DO Arnoldo Pérez Emergency Provider [phone] UZAIR CARTER Admitting Unavailable TERRENCE .DR UZAIR Attending Unavailable NICO GOMEZ Consulting Unavailable [facility] Primary Care Unavaila DR ARIADNA [...] Matute Consulting Unavailable TRINI CARPIO Consulting Unavailable [facility] Primary Care Provider LUIS Sandra Emergency Provider DO Lars Guerra Emergency Provider Dr. Marcos Gregory Attending Unava MD Jase Dudley Attending Provider MD Jase Breaux Jr Emergency Provider DO Teo Heath Attending Provider ParentDO Marquise ramsey Other Provider [facility] Primary Care Provider LUIS Sandra Emergency Provider DO John Luu Referring Provider [phone] [facility] Primary Care Provider DO Teo Heath Attending Provider Parentroxy, DO [place] Other Provider DO John Luu Referring Provider DO John Luu Referring Provider [facility] Primary Care Provider DO Teo Heath Attending Provider Self, Referral Attending Provider Unavailable [facility] Primary Care Provider DO John Luu Attending Provider [phone] [facility] Primary Care Provider DO Jovan Hutson Emergency Provider LUIS Sin Emergency Provider LUIS Saravia Ning Quyen Emergency Provider DO Teo Heath Attending Provider DO John Luu Referring Provider Raj Loaiza DO Attending Provider [phone] [facility] Primary Care Provider Teo Heath DO Attending Provider [phone] John Luu DO Referring Provider [facility] Referring Provider Self, Referral Attending Provider Unavailable Elio Martinez DO Emergency Provider Shayy SKINNER, Lars Tuttle Primary Care Provider Zack SKINNER, Andrius Vytautleola Attending Unavailable Giedraitis MD, Andrius Vytautas Attending Unavailable Giedraitis MD, Andrius Vytautas Attending Unavailable Giedraitis MD, Andrius Vytautas Attending Unavailable Giedraitis , Andrius Vytautas Attending Unavailable Giedraitis , Andrius Vytautas Attending Unavailable Shayy MARRERO, Lars E Primary Care Provider [phone] MARIANA MCCRAY Attending Unavailable MARIANA MCCRAY Attending Unavailable MARIANA MCCRAY Attending Unavailable RAJ LOAIZA Attending Unavailable Raj Loaiza DO Attending Provider [phone] [facility] Primary Care Provider Ivy White DO Emergency Provider [phone] Jase Breaux MD Emergency Provider Trini Fields MD Emergency Provider Tatyana SKINNER, Sneha Attending Provider [phone] John Luu DO Referring Provider Raj Loaiza DO Other Provider Teo Heath Admitting Unavailable Teo Heath Attending Unavailable John Luu Referring Unavailable [facility] Primary Care Unavaila ble Self, Referral Admitting Unavailable Self, Referral Attending Unavailable [facility] Referring Unavaila ble [facility] Primary Care Unavaila ble Ketvertis, Sneha Admitting Unavailable Ketvertis, Sneha Attending Unavailable John Luu Referring Unavailable [facility] Primary Care Unavaila ble Raj Loaiza Consulting Unavailable Jase Breaux Jr Admitting Unavailable Jase Breaux Jr Attending Unavailable [facility] Primary Care Unavaila ble Trini Feilds R Admitting Unavailable Trini Fields Attending Unavailable [facility] Primary Care Unavaila ble Jovan Hutson M Admitting Unavailable Jovan Hutson M Attending Unavailable [facility] Primary Care Unavaila ble Jocy, Agustin Admitting Unavailable Jocy, Agustin Attending Unavailable [facility] Primary Care Unavaila ble FaggionatoCyrilNing M Admitting Unavailable FaggNing snyder M Attending Unavailable [facility] Primary Care Unavaila ble Tupa, Elio M Admitting Unavailable Tupa Elio M Attending Unavailable [facility] Primary Care Unavaila ble Rice Ivy L Admitting Unavailable RiceMykeIvy L Attending Unavailable [facility] Primary Care Unavaila ble Unavailable Unavailable Unavailable Allergies Allergy Classification Reported Allergen(s) Allergy Type Date of Onset Reaction(s) Facility (20 sources) cyclobenzaprine ; Translations: [cyclobenzaprin e] Drug Allergy 2 Swelling of Lip/Tongue/Thro at [facility] Comment on above: This patient has had Albuterol before. (20 sources) Naproxen; Translations: [naproxen] Drug Allergy 2 Hives, Unknown [facility] (20 sources) Ondansetron; Translations: [ondansetron] Drug Allergy 2 Swelling of Lip/Tongue/Thro at [facility] (20 sources) Scallop - dietary; Translations: [scallops] Allergy to substance 2 [facility] (5 sources) cyclobenzaprine ; Translations: [Flexeril] Drug Allergy 7 Unknown [facility] (5 sources) Ondansetron; Translations: [Zofran] Drug Allergy 7 Unknown [facility] (2 sources) Naproxen Drug Allergy 7 [facility] (2 sources) Misc-Food; Translations: [Misc-Food] Food allergy (disorder) 7 [facility] (8 sources) Other Propensity to adverse [...] tablet by mouth three times daily Hydrocodone-Acetaminophen (Eliot) 5-325 mg tablet Discontinued 1 TAB PO [...] to six hours as needed for cough Rddnimxibghl-Cgnuoshot-Oevaavx (Promethazine Vc-Codeine) 6.25-5-10 mg/5 mL syrup Discontinued [...] mg/ml oral solution (20 sources) Phenothiazine, Uncompetitive C-dokwmw-A-aspartate Receptor Antagonist, Sigma-1 Agonist Start: 01-08-2023 End: [...] 1:00am April 18, 2023 12:08pm Prenat 115-Iron Znw-Depoh-Ssy ( 19 (With Docusate)) 29 mg iron- 1 mg-25 mg tablet (20 sources) Start: 04-21-2018 End: 04-22-2019 take 1 tablet by mouth once daily Prenat 115-Iron Ymz-Hrbvw-Mwf ( 19 (With Docusate)) 29 mg iron- 1 mg-25 mg tablet Discontinued 1 TAB PO Daily April 20, 2018 11:00pm April 22, 2019 9:17am Start: 04-21-2018 End: 04-22-2019 take 1 tablet by mouth once daily Prenat 115-Iron Hmm-Ytcea-Tqc ( 19 (With Docusate)) 29 mg iron- [...] [Enzymatic activity/volume] in Serum or Plasma 7-52 [facility] Albumin [Mass/volume] in Ser um or Plasma by Bromocresol green (BCG) dye binding methoOrdered By: Raj Loaiza on 04-10-2025 Albumin BCG dye [Mass/Vol] Albumin [Mass/volume] in Serum or Plasma by Bromocresol green (BCG) dye binding metho 3.5-5.7 [facility] Alkaline phosphatase [Enzyma tic activity/volume] in Serum or PlasmaOrdered By: Raj Loaiza on 04-10-2025 ALP [Catalytic activity/Vol] Alkaline phosphatase [Enzymatic activity/volume] in Serum or Plasma High 34-104 [facility] Aspartate aminotransferase [ Enzymatic activity/volume] in Serum or PlasmaOrdered By: Raj Loaiza on 04-10-2025 AST [Catalytic activity/Vol] Aspartate aminotransferase [Enzymatic activity/volume] in Serum or Plasma 13-39 [facility] Bilirubin.total [Mass/volume ] in Serum or PlasmaOrdered By: Raj Loaiza on 04-10-2025 Bilirubin [Mass/Vol] Bilirubin.total [Mass/volume] in Serum or Plasma 0.3-1.0 [facility] Calcium [Mass/volume] in Ser um or PlasmaOrdered By: Raj Loaiza on 04-10-2025 Calcium [Mass/Vol] Calcium [Mass/volume ] in Serum or Plasma 8.6-10.3 [facility] Carbon dioxide, total [Moles /volume] in Serum or PlasmaOrdered By: Raj Loaiza on 04-10-2025 CO2 [Moles/Vol] Carbon dioxide, tota l [Moles/volume] in Serum or Plasma High 21.0-31.0 [facility] Chloride [Moles/volume] in S brian or PlasmaOrdered By: Raj Loaiza on 04-10-2025 Chloride [Moles/Vol] Chloride [Moles/vol ume] in Serum or Plasma 98-107 [facility] Comprehensive Metabolic Pane susan 04-10-2025 Albumin [Mass/Vol] 3.6 g/dL Normal 3.5-5.7 [facility] Comment on above: Performed By: #### C MP #### [address] Albumin/Globulin [Mass ratio] 1.3 {ratio} Normal [facility] Comment on above: Performed By: #### C MP #### [address] ALP [Catalytic activity/Vol] 124 U/L High 34-104 [facility] Comment on above: Result Comment: PERF ORMED BY: [place] [address] PATHOLOGIST DRY CHAIN OFFBEARER GALI WISE M.D. Performed By: #### C MP #### [address] ALT [Catalytic activity/Vol] 40 U/L Normal 7-52 [facility] Comment on above: Performed By: #### C MP #### [address] Anion gap [Moles/Vol] 7.8 mmol/L Normal 6.0-15.0 [facility] Comment on above: Performed By: #### C MP #### [address] AST [Catalytic activity/Vol] 14 U/L Normal 13-39 [facility] Comment on above: Performed By: #### C MP #### [address] Bilirubin [Mass/Vol] 0.3 mg/dL Normal 0.3-1.0 [facility] Comment on above: Performed By: #### C MP #### [place] [address] [place] Calcium [Mass/Vol] 9.0 mg/dL Normal 8.6-10.3 [facility] Comment on above: Performed By: #### C MP #### [address] Chloride [Moles/Vol] 107 mmol/L Normal 98-107 [facility] Comment on above: Performed By: #### C MP #### [address] CO2 [Moles/Vol] 31.9 mmol/L High 21.0-31.0 [facility] Comment on above: Performed By: #### C MP #### [address] Creatinine [Mass/Vol] 0.69 mg/dL Normal 0.60-1.20 [facility] Comment on above: Performed By: #### C MP #### [address] GFR/1.73 sq M.predicted MDRD (S/P/Bld) [Vol rate/Area] mL/min/{1.73_m2} Normal [facility] Comment on above: Performed By: #### C MP #### [address] Globulin (S) [Mass/Vol] 2.7 g/dL Normal T [facility] Comment on above: Performed By: #### C MP #### [address] Glucose [Mass/Vol] 104 mg/dL High 70-100 [facility] Comment on above: Result Comment: [facility] Glucose Reference Range is dependent on time and content of last meal. Glucose of more than 200 mg/dL in a nonstressed, ambulatory subject supports the diagnosis of Diabetes Mellitus. ADA recommended reference range Performed By: #### C MP #### [address] Potassium [Moles/Vol] 3.7 mmol/L Normal 3.5-5.1 [facility] Comment on above: Performed By: #### C MP #### [facility] [address] Protein [Mass/Vol] 6.3 g/dL Low 6.4-8.9 [facility] Comment on above: Performed By: #### C MP #### [facility] [address] Sodium [Moles/Vol] 143 mmol/L Normal 136-145 [facility] Comment on above: Performed By: #### C MP #### [facility] [address] Urea nitrogen [Mass/Vol] 8 mg/dL Normal 7-25 [facility] Comment on above: Performed By: #### C MP #### [facility] [address] Creatinine [Mass/volume] in Serum or PlasmaOrdered By: Raj Loaiza on 04-10-2025 Creatinine [Mass/Vol] Creatinine [Mass/v olume] in Serum or Plasma 0.60-1.20 [facility] Globulin Calc (S) [Mass/Vol] Ordered By: Raj Loaiza on 04-10-2025 Globulin (S) [Mass/Vol] Serum globulin m easurement by calculation (mass/volume) [facility] Glucose [Mass/volume] in Ser um or PlasmaOrdered By: Raj Loaiza on 04-10-2025 Glucose [Mass/Vol] Glucose [Mass/volume ] in Serum or Plasma High 70-100 [facility] Comment on above: ADA recommended refe rence rangeRandom Glucose Reference Range is dependent on time and content of last meal. Glucose of more than 200 mg/dL in a nonstressed, ambulatory subject supports the diagnosis of Diabetes Mellitus. No Panel InformationOrdered By: Raj Loaiza on 04-10-2025 Estimated GFR (CKD-EPI) > 60.0 mL/Min [facility] Creatinine Clearance (Chem N/A [facility] Potassium [Moles/volume] in Serum or PlasmaOrdered By: Raj Loaiza on 04-10-2025 Potassium [Moles/Vol] Potassium [Moles/v olume] in Serum or Plasma 3.5-5.1 [facility] Protein [Mass/volume] in Ser um or PlasmaOrdered By: Raj Loaiza on 04-10-2025 Protein [Mass/Vol] Protein [Mass/volume ] in Serum or Plasma Low 6.4-8.9 [facility] Serum or plasma albumin/glob ulin mass ratioOrdered By: Raj Loaiza on 04-10-2025 Albumin/Globulin [Mass ratio] Serum or plasma albumin/globulin mass ratio [facility] Serum or plasma anion gap de terminationOrdered By: Raj Loaiza on 04-10-2025 Anion gap [Moles/Vol] Serum or plasma an ion gap determination 6.0-15.0 [facility] Sodium [Moles/volume] in Ser um or PlasmaOrdered By: Raj Loaiza on 04-10-2025 Sodium [Moles/Vol] Sodium [Moles/volume ] in Serum or Plasma 136-145 [facility] Type and Screenon 04-10-2025 ABO and Rh group Nom (Bld) Blood group B Rh(D) positive Normal [facility] Comment on above: Result Comment: PERF ORMED BY: [place] [address] PATHOLOGIST DRY CHAIN OFFBEARER GALI WISE M.D. US breast LT limitedon 04-10 US breast LT limited [facility] [place] [address] Ultrasound Report Signed Patient: Loy Hastings MR#: [id number] : 1980 Acct:[id number] Age/Sex: 44 / F ADM Date: 04/10/25 Loc: [place] Room: Type: [facility] Attending Dr: Sneha Joe MD Ordering Provider: [...] Jr., D.O. 04/10/2025 9:55 AM Dictation Location: [facility] Tech: Dana Paredes Transcribed By: ILIA 04/10/25954 Dictated By: Marquise Mendenhall Jr, DO 04/10/25939 Signed By: 04/10/25954 Normal [facility] Urea nitrogen [Mass/volume] in Serum or PlasmaOrdered By: Raj Loaiza on 04-10-2025 Urea nitrogen [Mass/Vol] Urea nitrogen [Mass/volume] in Serum or Plasma 06-21 [facility] Quick Strepon 04-08-2025 Quick Strep Streptococcus pyogen es Ag [Presence] in Throat by Rapid immunoassay Negative for Group A Strep Antigen Note 1 NOTE 2 Results are those of a screening test. NOTE 3 If clinically indicated please order a culture. NOTE 4 NOTE 5 Reference range = Negative PERFORMED BY: [place] [address] PATHOLOGIST DRY CHAIN OFFBEARER GALI WISE M.D. Normal [facility] Comment on above: Performed By: #### C BC, BMP, PT, PTT, HEPATIC, LIPASE #### [address] Streptococcus pyogenes antig en detectionOrdered By: Trini Fields on 04-08-2025 S. pyogenes Ag Ql (Unsp spec) Streptococcus pyogenes antigen detection [facility] Alanine aminotransferase [En zymatic activity/volume] in Serum or PlasmaOrdered By: Jase Breaux on 04-03-2025 ALT [Catalytic activity/Vol] Alanine aminotransferase [Enzymatic activity/volume] in Serum or Plasma 7-52 [facility] Albumin [Mass/volume] in Ser um or Plasma by Bromocresol green (BCG) dye binding methoOrdered By: Jase Breaux on 04-03-2025 Albumin BCG dye [Mass/Vol] Albumin [Mass/volume] in Serum or Plasma by Bromocresol green (BCG) dye binding metho 3.5-5.7 [facility] Alkaline phosphatase [Enzyma tic activity/volume] in Serum or PlasmaOrdered By: Jase Breaux on 04-03-2025 ALP [Catalytic activity/Vol] Alkaline phosphatase [Enzymatic activity/volume] in Serum or Plasma 34-104 [facility] Aspartate aminotransferase [ Enzymatic activity/volume] in Serum or PlasmaOrdered By: Jase Breaux on 04-03-2025 AST [Catalytic activity/Vol] Aspartate aminotransferase [Enzymatic activity/volume] in Serum or Plasma Low 13-39 [facility] Basophils Auto (Bld) [#/Vol] Ordered By: Jase Breaux on 04-03-2025 Basophils (Bld) [#/Vol] Automated basophil count 0.0-0.2 [facility] Basophils/100 WBC Auto (Bld) Ordered By: Jase Breaux on 04-03-2025 Basophils/100 WBC (Bld) Automated basophil % . [facility] Bilirubin.total [Mass/volume ] in Serum or PlasmaOrdered By: Jase Breaux on 04-03-2025 Bilirubin [Mass/Vol] Bilirubin.total [Mass/volume] in Serum or Plasma 0.3-1.0 [facility] Blood Cultureon 04-03-2025 Bacteria identified Cx Nom (Bld) NO GROWTH 5 DAYS PERFORMED BY: [place] [address] PATHOLOGIST DRY CHAIN OFFBEARER GALI WISE M.D. Normal [facility] Comment on above: Performed By: #### C BC, BMP, PT, PTT, HEPATIC, LIPASE #### [address] Calcium [Mass/volume] in Ser um or PlasmaOrdered By: Jase Breaux on 04-03-2025 Calcium [Mass/Vol] Calcium [Mass/volume ] in Serum or Plasma 8.6-10.3 [facility] Carbon dioxide, total [Moles /volume] in Serum or PlasmaOrdered By: Jase Breaux on 04-03-2025 CO2 [Moles/Vol] Carbon dioxide, tota l [Moles/volume] in Serum or Plasma 21.0-31.0 [facility] Chloride [Moles/volume] in S brian or PlasmaOrdered By: Jase Breaux on 04-03-2025 Chloride [Moles/Vol] Chloride [Moles/vol ume] in Serum or Plasma 98-107 [facility] Complete Blood Count Auto Di ffon 04-03-2025 Basophils (Bld) [#/Vol] 0.1 10*3/uL Normal 0.0-0.2 [facility] Comment on above: Result Comment: PERF ORMED BY: [place] [address] PATHOLOGIST DRY CHAIN OFFBEARER GALI WISE M.D. Performed By: #### C BC, BMP, PT, PTT, HEPATIC, LIPASE #### [facility] [address] Basophils/100 WBC (Bld) 0.5 % Normal . [facility]eth[facility] edou[facility] Comment on above: Performed By: #### C BC, BMP, PT, PTT, HEPATIC, LIPASE #### [facility] [address] Eosinophils (Bld) [#/Vol] 0.3 10*3/uL Normal 0.0-0.45 [facility] Comment on above: Performed By: #### C BC, BMP, PT, PTT, HEPATIC, LIPASE #### [facility] [address] [place] [address] [place] Eosinophils/100 WBC (Bld) 3.3 % Normal . [facility] Comment on above: Performed By: #### C BC, BMP, PT, PTT, HEPATIC, LIPASE #### [facility] [address] Erythrocyte distribution width (RBC) [Ratio] 14.6 % Normal 11.9-15.3 [facility] Comment on above: Performed By: #### C BC, BMP, PT, PTT, HEPATIC, LIPASE #### [address] Hematocrit (Bld) [Volume fraction] 41.6 % Normal 34.0-46.4 [facility] Comment on above: Performed By: #### C BC, BMP, PT, PTT, HEPATIC, LIPASE #### [address] Hemoglobin (Bld) [Mass/Vol] 13.8 g/dL Normal 11.8-15.4 [facility] Comment on above: Performed By: #### C BC, BMP, PT, PTT, HEPATIC, LIPASE #### [address] Lymphocytes (Bld) [#/Vol] 1.7 10*3/uL Normal 1.00-4.8 [facility] Comment on above: Performed By: #### C BC, BMP, PT, PTT, HEPATIC, LIPASE #### [address] Lymphocytes/100 WBC (Bld) 16.5 % Normal . [facility] Comment on above: Performed By: #### C BC, BMP, PT, PTT, HEPATIC, LIPASE #### [address] MCH (RBC) [Entitic mass] 24.9 pg Normal 24.7-34.3 [facility] Comment on above: Performed By: #### C BC, BMP, PT, PTT, HEPATIC, LIPASE #### [address] MCV (RBC) [Entitic vol] 74.9 fL Low 80-100 [facility] Comment on above: Performed By: #### C BC, BMP, PT, PTT, HEPATIC, LIPASE #### [address] Mean Corpuscular HGB Conc 33.2 g/dL Normal 32.0-35.0 [facility] Comment on above: Performed By: #### C BC, BMP, PT, PTT, HEPATIC, LIPASE #### [address] Monocytes (Bld) [#/Vol] 0.6 10*3/uL Normal 0.0-0.8 [facility] Comment on above: Performed By: #### C BC, BMP, PT, PTT, HEPATIC, LIPASE #### [place] [address] [place] Monocytes/100 WBC (Bld) 20.96 % High 0.00-20.00 [facility] Comment on above: Result Comment: For adults in ED, MDW > 20.0 may be associated with a higher risk of sepsis during the first 12 hrs of hospital admission Performed By: #### C BC, BMP, PT, PTT, HEPATIC, LIPASE #### [address] Monocytes/100 WBC (Bld) 5.7 % Normal . [facility] Comment on above: Performed By: #### C BC, BMP, PT, PTT, HEPATIC, LIPASE #### [address] Neutrophils (Bld) [#/Vol] 7.6 10*3/uL Normal 1.8-7.7 [facility] Comment on above: Performed By: #### C BC, BMP, PT, PTT, HEPATIC, LIPASE #### [place] [address] [place] Neutrophils/100 WBC (Bld) 74.0 % Normal . [facility] Comment on above: Performed By: #### C BC, BMP, PT, PTT, HEPATIC, LIPASE #### [place] [address] [place] NRBC% 0.1 /100{WBC} Normal 0-0.5 [facility] Comment on above: Performed By: #### C BC, BMP, PT, PTT, HEPATIC, LIPASE #### [address] Platelet mean volume (Bld) [Entitic vol] 7.5 fL Normal 6.3-10.7 [facility] Comment on above: Performed By: #### C BC, BMP, PT, PTT, HEPATIC, LIPASE #### [address] Platelets (Bld) [#/Vol] 290 10*3/uL Normal 150-450 [facility] Comment on above: Performed By: #### C BC, BMP, PT, PTT, HEPATIC, LIPASE #### [address] RBC (Bld) [#/Vol] 5.55 10*6/uL High 3.60-5.00 [facility] Comment on above: Performed By: #### C BC, BMP, PT, PTT, HEPATIC, LIPASE #### [address] WBC (Bld) [#/Vol] 10.3 10*3/uL Normal 3.8-11.6 [facility] Comment on above: Performed By: #### C BC, BMP, PT, PTT, HEPATIC, LIPASE #### [address] Comprehensive Metabolic Pane susan 04-03-2025 Albumin [Mass/Vol] 4.0 g/dL Normal 3.5-5.7 [facility] Comment on above: Performed By: #### C BC, BMP, PT, PTT, HEPATIC, LIPASE #### [address] Albumin/Globulin [Mass ratio] 1.2 {ratio} Normal [facility] Comment on above: Performed By: #### C BC, BMP, PT, PTT, HEPATIC, LIPASE #### [address] ALP [Catalytic activity/Vol] 100 U/L Normal 34-104 [facility] Comment on above: Performed By: #### C BC, BMP, PT, PTT, HEPATIC, LIPASE #### [address] ALT [Catalytic activity/Vol] 17 U/L Normal 7-52 [facility] Comment on above: Performed By: #### C BC, BMP, PT, PTT, HEPATIC, LIPASE #### [address] Anion gap [Moles/Vol] 9.4 mmol/L Normal 6.0-15.0 [facility] Comment on above: Performed By: #### C BC, BMP, PT, PTT, HEPATIC, LIPASE #### [address] AST [Catalytic activity/Vol] 11 U/L Low 13-39 [facility] Comment on above: Performed By: #### C BC, BMP, PT, PTT, HEPATIC, LIPASE #### [address] Bilirubin [Mass/Vol] 0.6 mg/dL Normal 0.3-1.0 [facility] Comment on above: Performed By: #### C BC, BMP, PT, PTT, HEPATIC, LIPASE #### [address] Calcium [Mass/Vol] 9.1 mg/dL Normal 8.6-10.3 [facility] Comment on above: Performed By: #### C BC, BMP, PT, PTT, HEPATIC, LIPASE #### [address] Chloride [Moles/Vol] 105 mmol/L Normal 98-107 [facility] Comment on above: Performed By: #### C BC, BMP, PT, PTT, HEPATIC, LIPASE #### [address] CO2 [Moles/Vol] 29.0 mmol/L Normal 21.0-31.0 [facility] Comment on above: Performed By: #### C BC, BMP, PT, PTT, HEPATIC, LIPASE #### [address] Creatinine [Mass/Vol] 0.83 mg/dL Normal 0.60-1.20 [facility] Comment on above: Performed By: #### C BC, BMP, PT, PTT, HEPATIC, LIPASE #### [address] Creatinine Clr Calc Pharmacy 111.81 Normal [facility] Comment on above: Result Comment: PERF ORMED BY: [place] [address] PATHOLOGIST DRY CH[employer] OFFBEARER GALI WISE M.D. Performed By: #### C BC, BMP, PT, PTT, HEPATIC, LIPASE #### [address] GFR/1.73 sq M.predicted MDRD (S/P/Bld) [Vol rate/Area] mL/min/{1.73_m2} Normal [facility] Comment on above: Performed By: #### C BC, BMP, PT, PTT, HEPATIC, LIPASE #### [address] Globulin (S) [Mass/Vol] 3.3 g/dL Normal [facility] Comment on above: Performed By: #### C BC, BMP, PT, PTT, HEPATIC, LIPASE #### [address] Glucose [Mass/Vol] 90 mg/dL Normal 70-100 [facility] Comment on above: Result Comment: [place] Glucose Reference Range is dependent on time and content of last meal. Glucose of more than 200 mg/dL in a nonstressed, ambulatory subject supports the diagnosis of Diabetes Mellitus. ADA recommended reference range Performed By: #### C BC, BMP, PT, PTT, HEPATIC, LIPASE #### [address] Potassium [Moles/Vol] 3.4 mmol/L Low 3.5-5.1 [facility] Comment on above: Performed By: #### C BC, BMP, PT, PTT, HEPATIC, LIPASE #### [address] Protein [Mass/Vol] 7.3 g/dL Normal 6.4-8.9 [facility] Comment on above: Performed By: #### C BC, BMP, PT, PTT, HEPATIC, LIPASE #### [facility] [address] Sodium [Moles/Vol] 140 mmol/L Normal 136-145 [facility] Comment on above: Performed By: #### C BC, BMP, PT, PTT, HEPATIC, LIPASE #### [facility] [address] Urea nitrogen [Mass/Vol] 7 mg/dL Normal 7-25 [facility] Comment on above: Performed By: #### C BC, BMP, PT, PTT, HEPATIC, LIPASE #### [address] Creatinine [Mass/volume] in Serum or PlasmaOrdered By: Jase Breaux on 04-03-2025 Creatinine [Mass/Vol] Creatinine [Mass/v olume] in Serum or Plasma 0.60-1.20 [facility] ECG 12 lead ECGon 04-03-2025 ECG 12 lead ECG [facility] [place] [address] Electrocardiograph Report Signed Patient: Loy Hastings MR#: [id number] : 1980 Acct:[id number] Age/Sex: 44 / F ADM Date: 04/03/25 Loc: ER Room: Type: [facility] ER Attending Dr: Ordering Provider: Jase [...] change was found Confirmed by Lee Burnette ([id number]) on 04/04/2025 9:37:25 AM Referred By: Electronically Signed By: Lee Burnette Transcribed By: MUS Signed By Lee Burnette MD 04/04/25 0937 Normal [facility] Eosinophils Auto (Bld) [#/Vo l]Ordered By: Jase Breaux on 04-03-2025 Eosinophils (Bld) [#/Vol] Automated eosinophil count 0.0-0.45 [facility] Eosinophils/100 WBC Auto (Bl d)Ordered By: Jase Breaux on 04-03-2025 Eosinophils/100 WBC (Bld) Automated eosinophil % . [facility] Erythrocyte distribution wid th Auto (RBC) [Ratio]Ordered By: Jase Breaux on 04-03-2025 Erythrocyte distribution width (RBC) [Ratio] Erythrocyte distribution width [Ratio] by Automated count 11.9-15.3 [facility] Globulin Calc (S) [Mass/Vol] Ordered By: Jase Breaux on 04-03-2025 Globulin (S) [Mass/Vol] Serum globulin m easurement by calculation (mass/volume) [facility] Glucose [Mass/volume] in Ser um or PlasmaOrdered By: Jase Breaux on 04-03-2025 Glucose [Mass/Vol] Glucose [Mass/volume ] in Serum or Plasma 70-100 [facility] Comment on above: ADA recommended refe rence rangeRandom Glucose Reference Range is dependent on time and content of last meal. Glucose of more than 200 mg/dL in a nonstressed, ambulatory subject supports the diagnosis of Diabetes Mellitus. Hematocrit Auto (Bld) [Volum e fraction]Ordered By: Jase Breaux on 04-03-2025 Hematocrit (Bld) [Volume fraction] Hematocrit [Volume Fraction] of Blood by Automated count 34.0-46.4 [facility] Hemoglobin [Mass/volume] in BloodOrdered By: Jase Breaux on 04-03-2025 Hemoglobin (Bld) [Mass/Vol] Hemoglobin [Mass/volume] in Blood 11.8-15.4 [facility] Laboratory - Microbiology an d Antimicrobial susceptibilityOrdered By: Jase Breaux on 04-03-2025 Bacteria identified Cx Nom (Bld) NO GROWTH 5 DAYS [facility] Lactate [Moles/volume] in Se rum or PlasmaOrdered By: Jase Breaux on 04-03-2025 Lactate [Moles/Vol] Lactate [Moles/volum e] in Serum or Plasma 0.5-1.9 [facility] Comment on above: Lactic Acid referenc e range has been updated to 0.5 1.9 mmol/L and the critical range of 2.0 or greater. Lactic Acidon 04-03-2025 Lactate [Moles/Vol] 0.7 mmol/L Normal 0.5-1.9 [facility] Comment on above: Result Comment: Lact ic Acid reference range has been updated to 0.5 ? 1.9 mmol/L and the critical range of 2.0 or greater. PERFORMED BY: [facility] [address] [place] [address] PATHOLOGIST DRY CH[employer] OFFBEARER GALI WISE M.D. Performed By: #### C BC, BMP, PT, PTT, HEPATIC, LIPASE #### [facility] [address] Leukocytes [#/volume] correc abdias for nucleated erythrocytes in Blood by Automated counOrdered By: Jase Breaux on 04-03-2025 WBC corrected for nucl RBC Auto (Bld) [#/Vol] Leukocytes [#/volume] corrected for nucleated erythrocytes in Blood by Automated coun 3.8-11.6 [facility] Lymphocytes Auto (Bld) [#/Vo l]Ordered By: Jase Breaux on 04-03-2025 Lymphocytes (Bld) [#/Vol] Lymphocytes [#/volume] in Blood by Automated count 1.00-4.8 [facility] Lymphocytes/100 WBC Auto (Bl d)Ordered By: Jase Breaux on 04-03-2025 Lymphocytes/100 WBC (Bld) Lymphocytes/100 leukocytes in Blood by Automated count . [facility] MCH Auto (RBC) [Entitic mass ]Ordered By: Jase Breuax on 04-03-2025 MCH (RBC) [Entitic mass] MCH [Entitic mass] by Automated count 24.7-34.3 [facility] MCHC Auto (RBC) [Mass/Vol]Or dered By: Jase Breaux on 04-03-2025 MCHC (RBC) [Mass/Vol] MCHC [Mass/volume] by Automated count 32.0-35.0 [facility] MCV Auto (RBC) [Entitic vol] Ordered By: Jase Breaux on 04-03-2025 MCV (RBC) [Entitic vol] MCV [Entitic vol ume] by Automated count Low 80-100 [facility] Monocyte distribution width [Entitic volume] in Blood by AutomatedOrdered By: Jase Breaux on 04-03-2025 Monocyte distribution width Auto (Bld) [Entitic vol] Monocyte distribution width [Entitic volume] in Blood by Automated High 0.00-20.00 [facility] Comment on above: For adults in ED, MD W > 20.0 may be associated with a higher risk of sepsis during the first 12 hrs of hospital admission Monocytes Auto (Bld) [#/Vol] Ordered By: Jase Breaux on 04-03-2025 Monocytes (Bld) [#/Vol] Automated blood monocyte count 0.0-0.8 [facility] Monocytes/100 WBC Auto (Bld) Ordered By: Jase Breaux on 04-03-2025 Monocytes/100 WBC (Bld) Automated monocyte % . [facility] Neutrophils Auto (Bld) [#/Vo l]Ordered By: Jase Breaux on 04-03-2025 Neutrophils (Bld) [#/Vol] Neutrophils [#/volume] in Blood by Automated count 1.8-7.7 [facility] Neutrophils/100 WBC Auto (Bl d)Ordered By: Jase Breaux on 04-03-2025 Neutrophils/100 WBC (Bld) Automated neutrophil % . [facility] No Panel InformationOrdered By: Jase Breaux on 04-03-2025 Estimated GFR (CKD-EPI) > 60.0 mL/Min [facility] Pharmacy Creatinine Clearance (Chem 111.81 [facility] Nucleated erythrocytes [Pres ence] in Blood by Automated countOrdered By: Jase Breaux on 04-03-2025 Nucleated RBC Auto Ql (Bld) Nucleated erythrocytes [Presence] in Blood by Automated count 0-0.5 [facility] Platelet mean volume Auto (B ld) [Entitic vol]Ordered By: Jase Breaux on 04-03-2025 Platelet mean volume (Bld) [Entitic vol] Platelet mean volume [Entitic volume] in Blood by Automated count 6.3-10.7 [facility] Platelets Auto (Bld) [#/Vol] Ordered By: Jase Breaux on 04-03-2025 Platelets (Bld) [#/Vol] Platelets [#/vol ume] in Blood by Automated count 150-450 [facility] Potassium [Moles/volume] in Serum or PlasmaOrdered By: Jase Breaux on 04-03-2025 Potassium [Moles/Vol] Potassium [Moles/v olume] in Serum or Plasma Low 3.5-5.1 [facility] Protein [Mass/volume] in Ser um or PlasmaOrdered By: Jase Breaux on 04-03-2025 Protein [Mass/Vol] Protein [Mass/volume ] in Serum or Plasma 6.4-8.9 [facility] RBC Auto (Bld) [#/Vol]Ordere d By: Jase Breaux on 04-03-2025 RBC (Bld) [#/Vol] Erythrocytes [#/volu me] in Blood by Automated count High 3.60-5.00 [facility] Serum or plasma albumin/glob ulin mass ratioOrdered By: Jase Breaux on 04-03-2025 Albumin/Globulin [Mass ratio] Serum or plasma albumin/globulin mass ratio [facility] Serum or plasma anion gap de terminationOrdered By: Jase Breaux on 04-03-2025 Anion gap [Moles/Vol] Serum or plasma an ion gap determination 6.0-15.0 [facility] Sodium [Moles/volume] in Ser um or PlasmaOrdered By: Jase Breaux on 04-03-2025 Sodium [Moles/Vol] Sodium [Moles/volume ] in Serum or Plasma 136-145 [facility] Urea nitrogen [Mass/volume] in Serum or PlasmaOrdered By: Jase Breaux on 04-03-2025 Urea nitrogen [Mass/Vol] Urea nitrogen [Mass/volume] in Serum or Plasma 7-25 [facility] WBC Auto (Bld) [#/Vol]Ordere d By: Jase Breaux on 04-03-2025 WBC (Bld) [#/Vol] Leukocytes [#/volume ] in Blood by Automated count 3.8-11.6 [facility] XR chest 1V portableon 04-03 XR chest 1V portable [address] [address] XRay Report Signed Patient: Loy Hastings MR#: [id number] : 1980 Acct:[id number] Age/Sex: 44 / F ADM Date: 04/03/25 Loc: ER Room: Type: [facility] ER Attending Dr: Copies to: Jase [...] Jr., D.O. 04/03/2025 8:40 AM Dictation Location: [place] [address] Transcribed By: [facility] 04/03/25 0840 Dictated By: Marquise Mendenhall Jr, DO 04/03/25 0839 Signed By: 04/03/25 0840 Normal [facility] X-ray reportOrdered By: Ralph Mendenhall on 03-28-2025 Study report [facility] [place] [address] XRay Report Signed Patient: Loy Hastings MR#: [id number] : 1980 Acct:[id number] Age/Sex: 44 / F ADM Date: 5 Loc: ER Room: Type: [facility] ER Attending Dr: Copies to: Ivy [...] DO 03/28/25 09 Signed By: 03/28/25 0908 [facility] XR foot LT min 3V*on 025 XR foot LT min 3V* [facility] [place] [address] XRay Report Signed Patient: Loy Hastings MR#: [id number] : 1980 Acct:[id number] Age/Sex: 44 / F ADM Date: 03/28/25 Loc: ER Room: Type: [facility] ER Attending Dr: Copies to: Ivy [...] 0907 Signed By: 03/28/25 0908 Normal [facility] X-ray reportOrdered By: Ralph Mendenhall on 12-05-2024 Study report [facility] Main [address] [address] XRay Report Signed Patient: Loy Hastings MR#: [id number] : 1980 Acct:[id number] Age/Sex: 43 / F ADM Date: 5 Loc: ER Room: Type: [facility] ER Attending Dr: Copies to: Elio Martinez DO~ Ordering Provider: Elio Martinez DO Date of Service: 12/05/24 XR/XR hand LT min 3V*: Extremity Injury, Upper ([id number]) XR/XR forearm LT 2V*: Extremity Injury, Upper [...] Mendenhall Jr., D.ORosey12/05/2024 11:09 PM Dictation Location: [place] [address] Transcribed By: [facility] 12/05/242308 Dictated By: Marquise Mendenhall Jr, DO 12/05/242306 Signed By: 12/05/242308 [facility] XR forearm LT 2V*on 12-05-19 XR forearm LT 2V* [facility] [place] [address] XRay Report Signed Patient: Loy Hastings MR#: [id number] : 1980 Acct:[id number] Age/Sex: 43 / F ADM Date: 12/05/24 Loc: ER Room: Type: [facility] ER Attending Dr: Copies to: Elio Martinez DO Ordering Provider: Elio Martinez DO Date of Service: 12/05/24 XR/XR hand LT min 3V*: Extremity Injury, Upper ([id number]) XR/XR forearm LT 2V*: Extremity Injury, Upper [...] Mendenhall Jr., D.O.12/05/2024 11:09 PM Dictation Location: [facility]18 Transcribed By: [facility] 12/05/242308 Dictated By: Marquise Mendenhall Jr, DO 12/05/242306 Signed By: 12/05/242308 Normal [facility] MM screening mammo BI w/CADo n 12-03-2024 MM screening mammo BI w/CAD [facility] Main [place] [address] [place] [address] Mammography Report Signed Patient: Loy Hastings MR#: [id number] : 1980 Acct:[id number] Age/Sex: 43 / F ADM Date: 12/03/24 Loc: [place] Room: Type: [facility] Attending Dr: Referral Self Copies to: [facility] SELF,REFERRAL Ordering Provider: SELF,REFERRAL [...] Alan Matta M.D.12/03/2024 2:34 PM Dictation Location: [facility] Transcribed By: ILIA 12/03/24 1434 Dictated By: Alan Matta II, MD 12/03/24 1429 Signed By: 12/03/24 1434 Normal [facility] Mammography reportOrdered By : Alan Matta on 12-03-2024 Diagnostic imaging study [facility] [place] [address] Mammography Report Signed Patient: Loy Hastings MR#: [id number] : 1980 Acct:[id number] Age/Sex: 43 / F ADM Date: 5 Loc: [place] Room: Type: [facility] Attending Dr: Referral Self Copies to: [facility] SELF,REFERRAL ~ Ordering Provider: SELF,REFERRAL Date [...] Alan Matta M.D.12/03/2024 2:34 PM Dictation Location: [facility] Transcribed By: ILIA 12/03/24 143 Dictated By: Alan Matta II, MD 12/03/24 142 Signed By: 12/03/24 143 [facility] Work Phone: A1C with Estimated Average G luon 09-07-2024 Glucose [Mass/Vol] 123 mg/dL Normal [facility] Comment on above: Order Comment: Reaso n for Exam Obesity due to excess calories with serious comorbidity, uns Result Comment: PERF ORMED BY: [place] [address] PATHOLOGIST DRY CH[employer] OFFBEARER MARTY SALGADO M.D. Performed By: #### L IPID, CBC, TSH3 wRFLX, CMP, URMACRERAT, A1C WTH eA #### [facility] [address] [place], [place] [id number] [place] Alanine aminotransferase [En zymatic activity/volume] in Serum or PlasmaOrdered By: John Luu on 09-07-2024 ALT [Catalytic activity/Vol] 17 U/L Normal [facility] Comment on above: Order Comment: Reaso n for Exam Obesity due to excess calories with serious comorbidity, uns Performed By: #### C BC, BMP, PT, PTT, HEPATIC, LIPASE #### [facility] [address] [place], [place] [id number] [place] ALT [Catalytic activity/Vol] Alanine aminotransferase [Enzymatic activity/volume] in Serum or Plasma [facility] Albumin [Mass/volume] in Ser um or Plasma by Bromocresol green (BCG) dye binding methoOrdered By: John Luu on 09-07-2024 Albumin BCG dye [Mass/Vol] 3.8 g/dL 3.5-5.7 [facility] Albumin BCG dye [Mass/Vol] Albumin [Mass/volume] in Serum or Plasma by Bromocresol green (BCG) dye binding metho 3.5-5.7 [facility] Alkaline phosphatase [Enzyma tic activity/volume] in Serum or PlasmaOrdered By: John Luu on 09-07-2024 ALP [Catalytic activity/Vol] 102 U/L Normal 34-104 [facility] Comment on above: Order Comment: Reaso n for Exam Obesity due to excess calories with serious comorbidity, uns Performed By: #### C BC, BMP, PT, PTT, HEPATIC, LIPASE #### [facility] [address] ALP [Catalytic activity/Vol] Alkaline phosphatase [Enzymatic activity/volume] in Serum or Plasma [address] [facility] Aspartate aminotransferase [ Enzymatic activity/volume] in Serum or PlasmaOrdered By: John Luu on 09-07-2024 AST [Catalytic activity/Vol] 13 U/L Normal 13-39 [facility] Comment on above: Order Comment: Kieto n for Exam Obesity due to excess calories with serious comorbidity, uns Performed By: #### C BC, BMP, PT, PTT, HEPATIC, LIPASE #### [facility] [address] [place] [id number] [place] AST [Catalytic activity/Vol] Aspartate aminotransferase [Enzymatic activity/volume] in Serum or Plasma 13-39 [facility] Automated basophil %Ordered By: John Luu on 09-07-2024 Basophils/100 WBC (Bld) 0.6 % Normal . [facility] Comment on above: Order Comment: Kieto n for Exam Obesity due to excess calories with serious comorbidity, uns Performed By: #### L IPID, CBC, TSH3 wRFLX, CMP, URMACRERAT, A1C WTH eA #### [facility] [address] [place] [id number] [place] Automated basophil countOrde red By: John Luu on 09-07-2024 Basophils (Bld) [#/Vol] 0.0 10*3/uL Normal 0.0-0.2 [facility] Comment on above: Order Comment: Reaso n for Exam Obesity due to excess calories with serious comorbidity, uns Result Comment: PERF ORMED BY: [place] [address] PATHOLOGIST DRY CH[employer] OFFBEARER MARTY SALGADO M.D. Performed By: #### L IPID, CBC, TSH3 wRFLX, CMP, URMACRERAT, A1C WTH eA #### [facility] [address] [place] [address] Automated blood monocyte cou ntOrdered By: John Luu on 09-07-2024 Monocytes (Bld) [#/Vol] 0.4 10*3/uL Normal 0.0-0.8 [facility] Comment on above: Order Comment: Reaso n for Exam Obesity due to excess calories with serious comorbidity, uns Performed By: #### L IPID, CBC, TSH3 wRFLX, CMP, URMACRERAT, A1C WT eA #### [facility] [address] [place] [address] Automated eosinophil %Ordere d By: John Luu on 09-07-2024 Eosinophils/100 WBC (Bld) 3.6 % Normal . [facility] Comment on above: Order Comment: Reaso n for Exam Obesity due to excess calories with serious comorbidity, uns Performed By: #### L IPID, CBC, TSH3 wRFLX, CMP, URMACRERAT, A1C WTH eA #### [facility] [address] [place] [address] [place] Automated eosinophil countOr dered By: John Luu on 09-07-2024 Eosinophils (Bld) [#/Vol] 0.3 10*3/uL Normal 0.0-0.45 [facility] Comment on above: Order Comment: Reaso n for Exam Obesity due to excess calories with serious comorbidity, uns Performed By: #### L IPID, CBC, TSH3 wRFLX, CMP, URMACRERAT, A1C WTH eA #### [facility] [address] Automated monocyte %Ordered By: John Luu on 09-07-2024 Monocytes/100 WBC (Bld) 4.6 % Normal . [facility] Comment on above: Order Comment: Reaso n for Exam Obesity due to excess calories with serious comorbidity, uns Performed By: #### L IPID, CBC, TSH3 wRFLX, CMP, URMACRERAT, A1C WTH eA #### [facility] [address] Automated neutrophil %Ordere d By: John Luu on 09-07-2024 Neutrophils/100 WBC (Bld) 56.2 % Normal . [facility] Comment on above: Order Comment: Reaso n for Exam Obesity due to excess calories with serious comorbidity, uns Performed By: #### L IPID, CBC, TSH3 wRFLX, CMP, URMACRERAT, A1C WTH eA #### [facility] [address] [place] [address] [place] Basophils Auto (Bld) [#/Vol] Ordered By: John Luu on 09-07-2024 Basophils (Bld) [#/Vol] Automated basophil count 0.0-0.2 [facility] Basophils/100 WBC Auto (Bld) Ordered By: John Luu on 09-07-2024 Basophils/100 WBC (Bld) Automated basophil % . [facility] Bilirubin.total [Mass/volume ] in Serum or PlasmaOrdered By: John Luu on 09-07-2024 Bilirubin [Mass/Vol] 0.4 mg/dL Normal 0.3-1.0 [facility] Comment on above: Order Comment: Reaso n for Exam Obesity due to excess calories with serious comorbidity, uns Performed By: #### C BC, BMP, PT, PTT, HEPATIC, LIPASE #### [facility] [address] Bilirubin [Mass/Vol] Bilirubin.total [Mass/volume] in Serum or Plasma 0.3-1.0 [facility] Blood estimated average gluc ose determination by estimation from glycated hemoglobinOrdered By: John Luu on 09-07-2024 Average glucose Estimated from glycated hemoglobin (Bld) [Mass/Vol] Glucose mean value [Mass/volume] in Blood Estimated from glycated hemoglobin [facility] Calcium [Mass/volume] in Ser um or PlasmaOrdered By: John Luu on 09-07-2024 Calcium [Mass/Vol] 8.8 mg/dL Normal 8.6-10.3 [facility] Comment on above: Order Comment: Reaso n for Exam Obesity due to excess calories with serious comorbidity, uns Performed By: #### C BC, BMP, PT, PTT, HEPATIC, LIPASE #### [facility] [address] Calcium [Mass/Vol] Calcium [Mass/volume ] in Serum or Plasma 8.6-10.3 [facility] Carbon dioxide, total [Moles /volume] in Serum or PlasmaOrdered By: John Luu on 09-07-2024 CO2 [Moles/Vol] 28.8 mmol/L Normal 21.0-31.0 [facility] Comment on above: Order Comment: Reaso n for Exam Obesity due to excess calories with serious comorbidity, uns Performed By: #### C BC, BMP, PT, PTT, HEPATIC, LIPASE #### [facility] [address] [place] [id number] [place] CO2 [Moles/Vol] Carbon dioxide, tota l [Moles/volume] in Serum or Plasma 21.0-31.0 [facility] Chloride [Moles/volume] in S brian or PlasmaOrdered By: John Luu on 09-07-2024 Chloride [Moles/Vol] 107 mmol/L Normal 98-107 [facility] Comment on above: Order Comment: Reaso n for Exam Obesity due to excess calories with serious comorbidity, uns Performed By: #### C BC, BMP, PT, PTT, HEPATIC, LIPASE #### [facility] [address] [place] [id number] [place] Chloride [Moles/Vol] Chloride [Moles/vol ume] in Serum or Plasma 98-107 [facility] Cholesterol [Mass/volume] in Serum or PlasmaOrdered By: [...] BC, BMP, PT, PTT, HEPATIC, LIPASE #### [facility] [address] Cholesterol [Mass/Vol] Cholesterol [Mass /volume] in Serum or Plasma 140-200 [facility] Comment on above: Chol less than 200 m g/dl low riskChol 201-239 mg/dl borderline riskChol 240 mg/dl and greater high risk Cholesterol in HDL [Mass/vol ume] in Serum or PlasmaOrdered By: John Luu on 09-07-2024 Cholesterol in HDL [Mass/Vol] Serum or plasma high density lipoprotein (HDL) cholesterol measurement 23-92 [facility] Comment on above: HDL CHOL ATP-III CLA SSIFICATION Cardiovascular RiskHDL > or equal to 60 mg/dL LOWHDL < 40 mg/dL HIGH Cholesterol in LDL Calc [Mas s/Vol]Ordered By: John Luu on 09-07-2024 Cholesterol in LDL [Mass/Vol] 113 mg/dL High 0-100 [facility] Comment on above: LDL ATP III CLASSIFI CATIONLDL less than 100 mg/dL OptimalLDL 100-129 mg/dL Near or above optimalLDL 130-159 mg/dL Borderline highLDL 160-189 mg/dL HighLDL greater than 189 mg/dL Very high Cholesterol in LDL [Mass/Vol] Cholesterol in LDL [Mass/volume] in Serum or Plasma by calculation High 0-100 [facility] Comment on above: LDL ATP III CLASSIFI CATIONLDL less than 100 mg/dL OptimalLDL 100-129 mg/dL Near or above optimalLDL 130-159 mg/dL Borderline highLDL 160-189 mg/dL HighLDL greater than 189 mg/dL Very high Cholesterol in VLDL Calc [Ma ss/Vol]Ordered By: John Luu on 09-07-2024 Cholesterol in VLDL [Mass/Vol] 15 mg/dL [facility] Cholesterol in VLDL [Mass/Vol] Cholesterol in VLDL [Mass/volume] in Serum or Plasma by calculation [facility] Complete Blood Count Auto Di ffon 09-07-2024 Mean Corpuscular HGB Conc 32.4 g/dL Normal 32.0-35.0 [facility] Comment on above: Order Comment: Reaso n for Exam Obesity due to excess calories with serious comorbidity, uns Performed By: #### L IPID, CBC, TSH3 wRFLX, CMP, URMACRERAT, A1C WTH eA #### [facility] [address] NRBC% 0.1 /100{WBC} Normal 0-0.5 [facility] Comment on above: Order Comment: Reaso n for Exam Obesity due to excess calories with serious comorbidity, uns Performed By: #### L IPID, CBC, TSH3 wRFLX, CMP, URMACRERAT, A1C WTH eA #### [facility] [address] Comprehensive Metabolic Pane susan 09-07-2024 Albumin [Mass/Vol] 3.8 g/dL Normal 3.5-5.7 [facility] Comment on above: Order Comment: Reaso n for Exam Obesity due to excess calories with serious comorbidity, uns Performed By: #### C BC, BMP, PT, PTT, HEPATIC, LIPASE #### [address] GFR/1.73 sq M.predicted MDRD (S/P/Bld) [Vol rate/Area] mL/min/{1.73_m2} Normal [facility] Comment on above: Order Comment: Reaso n for Exam Obesity due to excess calories with serious comorbidity, uns Performed By: #### C BC, BMP, PT, PTT, HEPATIC, LIPASE #### [facility] [address] [place] [address] Creatinine [Mass/volume] in Serum or PlasmaOrdered By: John Luu on 09-07-2024 Creatinine [Mass/Vol] 0.77 mg/dL Normal 0.60-1.20 [facility] Comment on above: Order Comment: Reaso n for Exam Obesity due to excess calories with serious comorbidity, uns Performed By: #### C BC, BMP, PT, PTT, HEPATIC, LIPASE #### [facility] [address] Creatinine [Mass/Vol] Creatinine [Mass/v olume] in Serum or Plasma 0.60-1.20 [facility] Creatinine [Mass/volume] in UrineOrdered By: John Luu on 09-07-2024 Creatinine (U) [Mass/Vol] 167.00 mg/dL [facility] Comment on above: No reference range e stablished Creatinine (U) [Mass/Vol] Creatinine [Mass/volume] in Urine [facility] Comment on above: No reference range e stablished Eosinophils Auto (Bld) [#/Vo l]Ordered By: John Luu on 09-07-2024 Eosinophils (Bld) [#/Vol] Automated eosinophil count 0.0-0.45 [facility] Eosinophils/100 WBC Auto (Bl d)Ordered By: John Luu on 09-07-2024 Eosinophils/100 WBC (Bld) Automated eosinophil % . [facility] Erythrocyte distribution wid th Auto (RBC) [Ratio]Ordered By: John Luu on 09-07-2024 Erythrocyte distribution width (RBC) [Ratio] Erythrocyte distribution width [Ratio] by Automated count 11.9-15.3 [facility] Erythrocyte distribution wid th [Ratio] by Automated countOrdered By: John Luu on 09-07-2024 Erythrocyte distribution width (RBC) [Ratio] 15.0 % Normal 11.9-15.3 [facility] Comment on above: Order Comment: Reaso n for Exam Obesity due to excess calories with serious comorbidity, uns Performed By: #### L IPID, CBC, TSH3 wRFLX, CMP, URMACRERAT, A1C WTH eA #### [facility] [address] [place] [id number] [place] Erythrocytes [#/volume] in B lood by Automated countOrdered By: John Luu on 09-07-2024 RBC (Bld) [#/Vol] 5.08 10*6/uL High 3.60-5.00 [facility] Comment on above: Order Comment: Reaso n for Exam Obesity due to excess calories with serious comorbidity, uns Performed By: #### L IPID, CBC, TSH3 wRFLX, CMP, URMACRERAT, A1C WTH eA #### [facility] [address] [place] [id number] [facility] Globulin Calc (S) [Mass/Vol] Ordered By: John Luu on 09-07-2024 Globulin (S) [Mass/Vol] Serum globulin m easurement by calculation (mass/volume) [facility] Glucose [Mass/volume] in Ser um or PlasmaOrdered By: John Luu on 09-07-2024 Glucose [Mass/Vol] 89 mg/dL Normal 70-100 [facility] Comment on above: ADA recommended refe rence rangeRandom Glucose Reference Range is dependent on time and content of last meal. Glucose of more than 200 mg/dL in a nonstressed, ambulatory subject supports the diagnosis of Diabetes Mellitus. Order Comment: Reaso n for Exam Obesity due to excess calories with serious comorbidity, uns Result Comment: [place] om Glucose Reference Range is dependent on time and content of last meal. Glucose of more than 200 mg/dL in a nonstressed, ambulatory subject supports the diagnosis of Diabetes Mellitus. ADA recommended reference range Performed By: #### C BC, BMP, PT, PTT, HEPATIC, LIPASE #### [facility] [address] [place] [id number] [facility] Glucose [Mass/Vol] Glucose [Mass/volume ] in Serum or Plasma 70-100 [facility] Comment on above: ADA recommended refe rence rangeRandom Glucose Reference Range is dependent on time and content of last meal. Glucose of more than 200 mg/dL in a nonstressed, ambulatory subject supports the diagnosis of Diabetes Mellitus. Glucose mean value [Mass/vol ume] in Blood Estimated from glycated hemoglobinOrdered By: John Luu on 09-07-2024 Average glucose Estimated from glycated hemoglobin (Bld) [Mass/Vol] 123 mg/dL [facility] Hematocrit Auto (Bld) [Volum e fraction]Ordered By: John Luu on 09-07-2024 Hematocrit (Bld) [Volume fraction] Hematocrit [Volume Fraction] of Blood by Automated count 34.0-46.4 [facility] Hematocrit [Volume Fraction] of Blood by Automated countOrdered By: John Luu on 09-07-2024 Hematocrit (Bld) [Volume fraction] 38.5 % Normal 34.0-46.4 [facility] Comment on above: Order Comment: Kieto n for Exam Obesity due to excess calories with serious comorbidity, uns Performed By: #### L IPID, CBC, TSH3 wRFLX, CMP, URMACRERAT, A1C WTH eA #### [facility] [address] Hemoglobin A1c percentageOrd ered By: John Luu on 09-07-2024 HbA1c (Bld) [Mass fraction] 5.9 % High 4.3-5.6 [facility] Comment on above: Increased risk for d [...] URMACRERAT, A1C WTH eA #### [facility] [address] [place] [address] [place] Hemoglobin A1c/Hemoglobin.to gurmeet in BloodOrdered By: John Luu on 09-07-2024 HbA1c (Bld) [Mass fraction] Hemoglobin A1c percentage High 4.3-5.6 [facility] Comment on above: Increased risk for d iabetes: 5.7 - 6.4diabetes: >6.4glycemic control for adults with diabetes: <7.0 Hemoglobin [Mass/volume] in BloodOrdered By: John Luu on 09-07-2024 Hemoglobin (Bld) [Mass/Vol] 12.5 g/dL Normal 11.8-15.4 [facility] Comment on above: Order Comment: Deb duffy for Exam Obesity due to excess calories with serious comorbidity, uns Performed By: #### L IPID, CBC, TSH3 wRFLX, CMP, URMACRERAT, A1C [facility] eA #### [facility] [address] Hemoglobin (Bld) [Mass/Vol] Hemoglobin [Mass/volume] in Blood 11.8-15.4 [facility] Leukocytes [#/volume] correc abdias for nucleated erythrocytes in Blood by Automated counOrdered By: John Luu on 09-07-2024 WBC corrected for nucl RBC Auto (Bld) [#/Vol] 7.7 10*3/uL 3.8-11.6 [facility] WBC corrected for nucl RBC Auto (Bld) [#/Vol] Leukocytes [#/volume] corrected for nucleated erythrocytes in Blood by Automated coun 3.8-11.6 [facility] Leukocytes [#/volume] in Blo od by Automated countOrdered By: John Luu on 09-07-2024 WBC (Bld) [#/Vol] 7.7 10*3/uL Normal 3.8-11.6 [facility] Comment on above: Order Comment: Reaso n for Exam Obesity due to excess calories with serious comorbidity, uns Performed By: #### L IPID, CBC, TSH3 wRFLX, CMP, URMACRERAT, A1C [facility] eA #### [facility] [address] Lipid Panelon 09-07-2024 LDL Cholesterol,Calculated 113 mg/dL High 0-100 [facility] Comment on above: Order [...] BC, BMP, PT, PTT, HEPATIC, LIPASE #### [facility] [address] Triglyceride w/Reflex 78 mg/dL Normal 0-149 [facility] Comment on above: Order [...] BC, BMP, PT, PTT, HEPATIC, LIPASE #### [facility] [address] VLDL CHOLESTEROL 15 mg/dL Normal [facility] Comment on above: Order Comment: Reaso n for Exam Obesity due to excess calories with serious comorbidity, uns Performed By: #### C BC, BMP, PT, PTT, HEPATIC, LIPASE #### [facility] [address] [place] [address] [place] Lymphocytes Auto (Bld) [#/Vo l]Ordered By: John Luu on 09-07-2024 Lymphocytes (Bld) [#/Vol] Lymphocytes [#/volume] in Blood by Automated count 1.00-4.8 [facility] Lymphocytes [#/volume] in Bl ood by Automated countOrdered By: John Luu on 09-07-2024 Lymphocytes (Bld) [#/Vol] 2.7 10*3/uL Normal 1.00-4.8 [facility] Comment on above: Order Comment: Reaso n for Exam Obesity due to excess calories with serious comorbidity, uns Performed By: #### L IPID, CBC, TSH3 wRFLX, CMP, URMACRERAT, A1C WTH eA #### [facility] [address] [place] [address] [place] Lymphocytes/100 WBC Auto (Bl d)Ordered By: John Luu on 09-07-2024 Lymphocytes/100 WBC (Bld) Lymphocytes/100 leukocytes in Blood by Automated count . [facility] Lymphocytes/100 leukocytes i n Blood by Automated countOrdered By: John Luu on 09-07-2024 Lymphocytes/100 WBC (Bld) 35.0 % Normal . [facility] Comment on above: Order Comment: Reaso n for Exam Obesity due to excess calories with serious comorbidity, uns Performed By: #### L IPID, CBC, TSH3 wRFLX, CMP, URMACRERAT, A1C WTH eA #### [facility] [address] MCH Auto (RBC) [Entitic mass ]Ordered By: John Luu on 09-07-2024 MCH (RBC) [Entitic mass] MCH [Entitic mass] by Automated count Low 24.7-34.3 [facility] MCH [Entitic mass] by Automa abdias countOrdered By: John Luu on 09-07-2024 MCH (RBC) [Entitic mass] 24.5 pg Low 24.7-34.3 [facility] Comment on above: Order Comment: Reaso n for Exam Obesity due to excess calories with serious comorbidity, uns Performed By: #### L IPID, CBC, TSH3 wRFLX, CMP, URMACRERAT, A1C WT eA #### [facility] [address] [place] [id number] [facility] MCHC Auto (RBC) [Mass/Vol]Or dered By: John Luu on 09-07-2024 MCHC (RBC) [Mass/Vol] 32.4 g/dL 32.0-35.0 [facility] MCHC (RBC) [Mass/Vol] MCHC [Mass/volume] by Automated count 32.0-35.0 [facility] MCV Auto (RBC) [Entitic vol] Ordered By: John Luu on 09-07-2024 MCV (RBC) [Entitic vol] MCV [Entitic vol ume] by Automated count Low 80-100 [facility] MCV [Entitic volume] by Auto mated countOrdered By: John Luu on 09-07-2024 MCV (RBC) [Entitic vol] 75.7 fL Low 80-100 [facility] Comment on above: Order Comment: Reaso n for Exam Obesity due to excess calories with serious comorbidity, uns Performed By: #### L IPID, CBC, TSH3 wRFLX, CMP, URMACRERAT, A1C WTH eA #### [facility] [address] [place] [id number] [place] MicroAlb Creat Ratio,Uon Creatinine, Urine (Random) 167.00 mg/dL Normal [facility] Comment on above: Order Comment: Reaso n for Exam Obesity due to excess calories with serious comorbidity, uns Result Comment: No r eference range established Performed By: #### C BC, BMP, PT, PTT, HEPATIC, LIPASE #### [address] Microalbumin/Creatinine Ratio 5.4 mg/g Normal 0.0-30.0 [facility] Comment on above: Order Comment: Reaso n for Exam Obesity due to excess calories with serious comorbidity, uns Result Comment: 30-3 00 mg/g indicates an increased risk for diabetic nephropathy. Greater than 300 mg/g is consistent with clinical nephropathy. (Am. J. Kidney Disease 1995, 25:107) PERFORMED BY: [place] [address] PATHOLOGIST [employer] MARTY SALGADO M.D. Performed By: #### C BC, BMP, PT, PTT, HEPATIC, LIPASE #### [address] Microalbumin [Mass/volume] i n UrineOrdered By: John Luu on 09-07-2024 Albumin DL <= 20 mg/L (U) [Mass/Vol] 0.9 mg/dL Normal 0.0-1.8 [facility] Comment on above: Order Comment: Reaso n for Exam Obesity due to excess calories with serious comorbidity, uns Performed By: #### C BC, BMP, PT, PTT, HEPATIC, LIPASE #### [address] Albumin DL <= 20 mg/L (U) [Mass/Vol] Microalbumin [Mass/volume] in Urine 0.0-1.8 [facility] Monocytes Auto (Bld) [#/Vol] Ordered By: John Luu on 09-07-2024 Monocytes (Bld) [#/Vol] Automated blood monocyte count 0.0-0.8 [facility] Monocytes/100 WBC Auto (Bld) Ordered By: John Luu on 09-07-2024 Monocytes/100 WBC (Bld) Automated monocyte % . [facility] Neutrophils Auto (Bld) [#/Vo l]Ordered By: John Luu on 09-07-2024 Neutrophils (Bld) [#/Vol] Neutrophils [#/volume] in Blood by Automated count 1.8-7.7 [facility] Neutrophils [#/volume] in Bl ood by Automated countOrdered By: John Luu on 09-07-2024 Neutrophils (Bld) [#/Vol] 4.3 10*3/uL Normal 1.8-7.7 [facility] Comment on above: Order Comment: Reaso n for Exam Obesity due to excess calories with serious comorbidity, uns Performed By: #### L IPID, CBC, TSH3 wRFLX, CMP, URMACRERAT, A1C WTH eA #### [facility] [address] Neutrophils/100 WBC Auto (Bl d)Ordered By: John Luu on 09-07-2024 Neutrophils/100 WBC (Bld) Automated neutrophil % . [facility] No Panel InformationOrdered By: John Luu on 09-07-2024 Estimated GFR (CKD-EPI) > 60.0 mL/Min [facility] Creatinine Clearance (Chem N/A [facility] Nucleated erythrocytes [Pres ence] in Blood by Automated countOrdered By: John Luu on 09-07-2024 Nucleated RBC Auto Ql (Bld) 0.1 /100{WBC} 0-0.5 [facility] Nucleated RBC Auto Ql (Bld) Nucleated erythrocytes [Presence] in Blood by Automated count 0-0.5 [facility] Platelet mean volume Auto (B ld) [Entitic vol]Ordered By: John Luu on 09-07-2024 Platelet mean volume (Bld) [Entitic vol] Platelet mean volume [Entitic volume] in Blood by Automated count 6.3-10.7 [facility] Platelet mean volume [Entiti c volume] in Blood by Automated countOrdered By: John Luu on 09-07-2024 Platelet mean volume (Bld) [Entitic vol] 7.4 fL Normal 6.3-10.7 [facility] Comment on above: Order Comment: Reaso n for Exam Obesity due to excess calories with serious comorbidity, uns Performed By: #### L IPID, CBC, TSH3 wRFLX, CMP, URMACRERAT, A1C [facility] eA #### [facility] [address] [place] [id number] [place] Platelets Auto (Bld) [#/Vol] Ordered By: John Luu on 09-07-2024 Platelets (Bld) [#/Vol] Platelets [#/vol ume] in Blood by Automated count 150-450 [facility] Platelets [#/volume] in Bloo d by Automated countOrdered By: John Luu on 09-07-2024 Platelets (Bld) [#/Vol] 324 10*3/uL Normal 150-450 [facility] Comment on above: Order Comment: Reaso n for Exam Obesity due to excess calories with serious comorbidity, uns Performed By: #### L IPID, CBC, TSH3 wRFLX, CMP, URMACRERAT, A1C [facility] eA #### [facility] [address] [place] [address] [place] Potassium [Moles/volume] in Serum or PlasmaOrdered By: John Luu on 09-07-2024 Potassium [Moles/Vol] 4.0 mmol/L Normal 3.5-5.1 [facility] Comment on above: Order Comment: Reaso n for Exam Obesity due to excess calories with serious comorbidity, uns Performed By: #### C BC, BMP, PT, PTT, HEPATIC, LIPASE #### [facility] [address] [place] [id number] [place] Potassium [Moles/Vol] Potassium [Moles/v olume] in Serum or Plasma 3.5-5.1 [facility] Protein [Mass/volume] in Ser um or PlasmaOrdered By: John Luu on 09-07-2024 Protein [Mass/Vol] 6.7 g/dL Normal 6.4-8.9 [facility] Comment on above: Order Comment: Reaso n for Exam Obesity due to excess calories with serious comorbidity, uns Performed By: #### C BC, BMP, PT, PTT, HEPATIC, LIPASE #### [facility] [address] Protein [Mass/Vol] Protein [Mass/volume ] in Serum or Plasma 6.4-8.9 [facility] RBC Auto (Bld) [#/Vol]Ordere d By: John Luu on 09-07-2024 RBC (Bld) [#/Vol] Erythrocytes [#/volu me] in Blood by Automated count High 3.60-5.00 [facility] Serum globulin measurement b y calculation (mass/volume)Ordered By: John Luu on 09-07-2024 Globulin (S) [Mass/Vol] 2.9 g/dL Normal F [facility] Comment on above: Order Comment: Reaso n for Exam Obesity due to excess calories with serious comorbidity, uns Performed By: #### C BC, BMP, PT, PTT, HEPATIC, LIPASE #### [facility] [address] Serum or plasma albumin/glob ulin mass ratioOrdered By: John Luu on 09-07-2024 Albumin/Globulin [Mass ratio] 1.3 {ratio} Normal [facility] Comment on above: Order Comment: Reaso n for Exam Obesity due to excess calories with serious comorbidity, uns Performed By: #### C BC, BMP, PT, PTT, HEPATIC, LIPASE #### [facility] [address] Albumin/Globulin [Mass ratio] Serum or plasma albumin/globulin mass ratio [facility] Serum or plasma anion gap de terminationOrdered By: John Luu on 09-07-2024 Anion gap [Moles/Vol] 10.2 mmol/L Normal 6.0-15.0 [facility] Comment on above: Order Comment: Reaso n for Exam Obesity due to excess calories with serious comorbidity, uns Performed By: #### C BC, BMP, PT, PTT, HEPATIC, LIPASE #### [facility] [address] Anion gap [Moles/Vol] Serum or plasma an ion gap determination 6.0-15.0 [facility] Serum or plasma high density lipoprotein (HDL) cholesterol measurementOrdered By: John Luu on 10-11-2024 Cholesterol in HDL [Mass/Vol] 37 mg/dL Normal 23-92 [facility] Comment on above: HDL CHOL ATP-III CLA [...] BC, BMP, PT, PTT, HEPATIC, LIPASE #### [facility] [address] [place] [id number] [facility] Serum or plasma total choles terol/high density lipoprotein (HDL) cholesterol mass ratOrdered By: John Luu on 09-07-2024 Cholesterol.total/Candy sterol in HDL [Mass ratio] 4.5 {ratio} Normal <5.0 [facility] Comment on above: Order Comment: Reaso n for Exam Obesity due to excess calories with serious comorbidity, uns Performed By: #### C BC, BMP, PT, PTT, HEPATIC, LIPASE #### [facility] [address] [place] [id number] [place] Cholesterol.total/Candy sterol in HDL [Mass ratio] Serum or plasma total cholesterol/high density lipoprotein (HDL) cholesterol mass rat <5.0 [facility] Sodium [Moles/volume] in Ser um or PlasmaOrdered By: John Luu on 09-07-2024 Sodium [Moles/Vol] 142 mmol/L Normal 136-145 [facility] Comment on above: Order Comment: Reaso n for Exam Obesity due to excess calories with serious comorbidity, uns Performed By: #### C BC, BMP, PT, PTT, HEPATIC, LIPASE #### [facility] [address] [place] [id number] [place] Sodium [Moles/Vol] Sodium [Moles/volume ] in Serum or Plasma 136-145 [facility] Thyroid Stim Hormone w/Rflxo n 09-07-2024 Thyroid Stim Hormone w/Rflx 0.94 u[iU]/mL Normal 0.45-5.33 [facility] Comment on above: Order Comment: Reaso n for Exam Obesity due to excess calories with serious comorbidity, uns Result Comment: PERF ORMED BY: [facility] [address] [place] [address] PATHOLOGIST [employer] MARTY SALGADO M.D. Performed By: #### C BC, BMP, PT, PTT, HEPATIC, LIPASE #### [facility] [address] Thyrotropin [Units/volume] i n Serum or PlasmaOrdered By: John Luu on 09-07-2024 TSH Qn 0.94 m[IU]/L 0.45-5.33 [facility] TSH Qn Thyrotropin [Units/v olume] in Serum or Plasma 0.45-5.33 [facility] Triglyceride [Mass/volume] i n Serum or PlasmaOrdered By: John Luu on 09-07-2024 Triglyceride [Mass/Vol] 78 mg/dL 0-149 [facility] Comment on above: TRIG ATP III CLASSIF ICATIONTRIG less than 150 mg/dL NormalTRIG 150-199 mg/dL Borderline highTRIG 200-500 mg/dL High TRIG greater than 500 mg/dL Very highStandard traceable to the Center for Disease Conrtrol and Prevention (CDC) test method. Triglyceride [Mass/Vol] Triglyceride [Ma ss/volume] in Serum or Plasma 0-149 [facility] Comment on above: TRIG ATP III CLASSIF ICATIONTRIG less than 150 mg/dL NormalTRIG 150-199 mg/dL Borderline highTRIG 200-500 mg/dL High TRIG greater than 500 mg/dL Very highStandard traceable to the Center for Disease Conrtrol and Prevention (CDC) test method. Urea nitrogen [Mass/volume] in Serum or PlasmaOrdered By: John Luu on 09-07-2024 Urea nitrogen [Mass/Vol] 11 mg/dL Normal 06-21 [facility] Comment on above: Order Comment: Reaso n for Exam Obesity due to excess calories with serious comorbidity, uns Performed By: #### C BC, BMP, PT, PTT, HEPATIC, LIPASE #### [facility] [address] [place] [id number] [facility] Urea nitrogen [Mass/Vol] Urea nitrogen [Mass/volume] in Serum or Plasma 06-21 [facility] Urine microalbumin/creatinin e mass ratioOrdered By: Lopezsulma Luu on 09-07-2024 Albumin/Creatinine DL <= 20 mg/L (U) [Mass ratio] 5.4 mg/g 0.0-30.0 [facility] Comment on above: 30-300 mg/g indicate s an increased risk for diabetic nephropathy. Greater than 300 mg/g is consistent with clinical nephropathy. (Am. J. Kidney Disease 1995, 25:107) Albumin/Creatinine DL <= 20 mg/L (U) [Mass ratio] Urine microalbumin/creatinine mass ratio 0.0-30.0 [facility] Comment on above: 30-300 mg/g indicate s an increased risk for diabetic nephropathy. Greater than 300 mg/g is consistent with clinical nephropathy. (Am. J. Kidney Disease 1995, 25:107) WBC Auto (Bld) [#/Vol]Ordere d By: John Jus on 09-07-2024 WBC (Bld) [#/Vol] Leukocytes [#/volume ] in Blood by Automated count 3.8-11.6 [facility] XR foot RT min 3V*on 024 XR foot RT min 3V* [facility] [place] [address] XRay Report Signed Patient: Loy Hastings MR#: [id number] : 1980 Acct:[id number] Age/Sex: 43 / F ADM Date: 08/07/24 Loc: ER Room: Type: [facility] ER Attending Dr: Copies to: Agustin [...] Sarah Mistry M.D.08/07/2024 11:28 AM Dictation Location: [place] [address] Transcribed By: [facility] 08/07/241127 Dictated By: Sarah Mistry MD 08/07/241125 Signed By: 08/07/241127 Normal [facility] Activated partial thrombopla stin time (aPTT) in platelet poor plasma by coagulation aOrdered By: Jovan Hutson on 07-10-2024 aPTT Coag (PPP) [Time] 33.6 s 25.1-36.5 [facility] Comment on above: A hematocrit value g reater than 55% may lead to inaccurate results in coagulation testing. Patients having hematocrit values >55% require a special collection tube for coagulation studies. Please contact the laboratory at [phone] for redraw instructions. Alanine aminotransferase [En zymatic activity/volume] in Serum or PlasmaOrdered By: Jovan Hutson on 07-10-2024 ALT [Catalytic activity/Vol] 34 U/L Normal 7-52 [facility] Comment on above: Performed By: #### C BC, BMP, PT, PTT, HEPATIC, LIPASE #### [facility] [address] [place] [id number] [place] Albumin [Mass/volume] in Ser um or Plasma by Bromocresol green (BCG) dye binding methoOrdered By: Jovan Hutson on 07-10-2024 Albumin BCG dye [Mass/Vol] 4.2 g/dL 3.5-5.7 [facility] Alkaline phosphatase [Enzyma tic activity/volume] in Serum or PlasmaOrdered By: Jovan Hutson on 07-10-2024 ALP [Catalytic activity/Vol] 106 U/L High 34-104 [facility] Comment on above: Performed By: #### C BC, BMP, PT, PTT, HEPATIC, LIPASE #### [facility] [address] [place] [id number] [place] Aspartate aminotransferase [ Enzymatic activity/volume] in Serum or PlasmaOrdered By: Jovan Hutson on 07-10-2024 AST [Catalytic activity/Vol] 18 U/L Normal 13-39 [facility] Comment on above: Performed By: #### C BC, BMP, PT, PTT, HEPATIC, LIPASE #### [address] Automated basophil %Ordered By: Jovan Hutson on 07-10-2024 Basophils/100 WBC (Bld) 0.8 % Normal . [facility] Comment on above: Performed By: #### C BC, BMP, PT, PTT, HEPATIC, LIPASE #### [address] Automated basophil countOrde red By: Jovan Hutson on 07-10-2024 Basophils (Bld) [#/Vol] 0.1 10*3/uL Normal 0.0-0.2 [facility] Comment on above: Result Comment: PERF ORMED BY: [place] [address] PATHOLOGIST [employer] OFFBEARER MARTY SALGADO M.D. Performed By: #### C BC, BMP, PT, PTT, HEPATIC, LIPASE #### [address] Automated blood monocyte cou ntOrdered By: Jovan Hutson on 07-10-2024 Monocytes (Bld) [#/Vol] 0.5 10*3/uL Normal 0.0-0.8 [facility] Comment on above: Performed By: #### C BC, BMP, PT, PTT, HEPATIC, LIPASE #### [address] Automated eosinophil %Ordere d By: Jovan Hutson on 07-10-2024 Eosinophils/100 WBC (Bld) 4.5 % Normal . [facility] Comment on above: Performed By: #### C BC, BMP, PT, PTT, HEPATIC, LIPASE #### [address] Automated eosinophil countOr dered By: Jovan Hutson on 07-10-2024 Eosinophils (Bld) [#/Vol] 0.4 10*3/uL Normal 0.0-0.45 [facility] Comment on above: Performed By: #### C BC, BMP, PT, PTT, HEPATIC, LIPASE #### [address] Automated monocyte %Ordered By: Jovan Hutson on 07-10-2024 Monocytes/100 WBC (Bld) 6.1 % Normal . [facility] Comment on above: Performed By: #### C BC, BMP, PT, PTT, HEPATIC, LIPASE #### [address] Automated neutrophil %Ordere d By: Jovan Hutson on 07-10-2024 Neutrophils/100 WBC (Bld) 62.1 % Normal . [facility] Comment on above: Performed By: #### C BC, BMP, PT, PTT, HEPATIC, LIPASE #### [address] Bacteria [Presence] in Urine by AutomatedOrdered By: Jovan Hutson on 07-10-2024 Bacteria Auto Ql (U) None seen [HPF] None Seen [facility] Basic Metabolic Panelon 06-28 Creatinine Clr Calc Pharmacy 115.15 Normal [facility] Comment on above: Performed By: #### C BC, BMP, PT, PTT, HEPATIC, LIPASE #### [address] GFR/1.73 sq M.predicted MDRD (S/P/Bld) [Vol rate/Area] mL/min/{1.73_m2} Normal [facility] Comment on above: Performed By: #### C BC, BMP, PT, PTT, HEPATIC, LIPASE #### [address] Bilirubin Test strip Ql (U)O rdered By: Jovan Hutson on 07-10-2024 Bilirubin Ql (U) Negative Negative [facility] Bilirubin.direct [Mass/volum e] in Serum or PlasmaOrdered By: Jovan Hutson on 07-10-2024 Bilirubin.direct [Mass/Vol] 0.10 mg/dL 0.03-0.18 [facility] Bilirubin.total [Mass/volume ] in Serum or PlasmaOrdered By: Jovan Hutson on 07-10-2024 Bilirubin [Mass/Vol] 0.4 mg/dL Normal 0.3-1.0 [facility] Comment on above: Performed By: #### C BC, BMP, PT, PTT, HEPATIC, LIPASE #### [facility] [address] abdomen pelvis w conon CT abdomen pelvis w con [facility] Main [place] [address] [place] [address] CT Scan Report Signed Patient: Loy Hastings MR#: [id number] : 1980 Acct:[id number] Age/Sex: 43 / F ADM Date: 07/10/24 Loc: ER Room: Type: [facility] ER Attending Dr: Copies to: Jovan [...] Sarah Mistry M.D.07/10/2024 8:49 PM Dictation Location: [place] [address] Transcribed By: [facility] 07/10/242048 Dictated By: Sarah Mistry MD 07/10/242043 Signed By: 07/10/242048 Normal [facility] Calcium [Mass/volume] in Ser um or PlasmaOrdered By: Jovan Hutson on 07-10-2024 Calcium [Mass/Vol] 9.5 mg/dL Normal 8.6-10.3 [facility] Comment on above: Performed By: #### C BC, BMP, PT, PTT, HEPATIC, LIPASE #### [facility] [address] Carbon dioxide, total [Moles /volume] in Serum or PlasmaOrdered By: Jovan Hutson on 07-10-2024 CO2 [Moles/Vol] 29.7 mmol/L Normal 21.0-31.0 [facility] Comment on above: Performed By: #### C BC, BMP, PT, PTT, HEPATIC, LIPASE #### [facility] [address] [place] [address] [place] Chloride [Moles/volume] in S brian or PlasmaOrdered By: Jovan Hutson on 07-10-2024 Chloride [Moles/Vol] 105 mmol/L Normal 98-107 [facility] Comment on above: Performed By: #### C BC, BMP, PT, PTT, HEPATIC, LIPASE #### [facility] [address] [place] [address] [place] Color of Urine by AutoOrdere d By: Jovan Hutson on 07-10-2024 Color (U) Light-yellow Normal Yellow [facility] Comment on above: Order Comment: Name Collection Type:: Clean-Voided Midstream Performed By: #### A DDONUAPLUS #### [address] Complete Blood Count Auto Di ffon 07-10-2024 Mean Corpuscular HGB Conc 32.1 g/dL Normal 32.0-35.0 [facility] Comment on above: Performed By: #### C BC, BMP, PT, PTT, HEPATIC, LIPASE #### [address] Monocytes/100 WBC (Bld) 20.46 % High 0.00-20.00 [facility] Comment on above: Result Comment: For adults in ED, MDW > 20.0 may be associated with a higher risk of sepsis during the first 12 hrs of hospital admission Performed By: #### C BC, BMP, PT, PTT, HEPATIC, LIPASE #### [address] NRBC% 0.1 /100{WBC} Normal 0-0.5 [facility] Comment on above: Performed By: #### C BC, BMP, PT, PTT, HEPATIC, LIPASE #### [address] Creatinine [Mass/volume] in Serum or PlasmaOrdered By: Jovan Hutson on 07-10-2024 Creatinine [Mass/Vol] 0.83 mg/dL Normal 0.60-1.20 [facility] Comment on above: Performed By: #### C BC, BMP, PT, PTT, HEPATIC, LIPASE #### [address] Dipstick and Microscopicon 0 07-10-2024 Bacteria,Urine None Seen Normal None Seen [facility] Comment on above: Order Comment: Name Collection Type:: Clean-Voided Midstream Performed By: #### A DDONUAPLUS #### [address] Bilirubin,Urine Negative Normal Negative [facility] Comment on above: Order Comment: Name Collection Type:: Clean-Voided Midstream Performed By: #### A DDONUAPLUS #### [address] Glucose Ql (U) Normal Normal Normal [facility] Comment on above: Order Comment: Name Collection Type:: Clean-Voided Midstream Performed By: #### A DDONUAPLUS #### [place] [address] [place] Hyaline Casts,Urine None Normal 0-8 [facility] Comment on above: Order Comment: Name Collection Type:: Clean-Voided Midstream Performed By: #### A DDONUAPLUS #### [place] [address] [place] Mucus,Urine Rare Normal [facility] Comment on above: Order Comment: Name Collection Type:: Clean-Voided Midstream Result Comment: PERF ORMED BY: [place] [address] PATHOLOGIST DRY CH[employer] OFFBEARER MARTY SALGADO M.D. Performed By: #### A DDONUAPLUS #### [place] [address] [place] Nitrite,Urine Negative Normal Negative [facility] Comment on above: Order Comment: Name Collection Type:: Clean-Voided Midstream Performed By: #### A DDONUAPLUS #### [place] [address] [place] Occult Blood,Urine 1+ High Negative [facility] Comment on above: Order Comment: Name Collection Type:: Clean-Voided Midstream Performed By: #### A DDONUAPLUS #### [place] [address] [place] Protein,Urine Negative Normal Negative [facility] Comment on above: Order Comment: Name Collection Type:: Clean-Voided Midstream Performed By: #### A DDONUAPLUS #### [place] [address] [place] RBC,Urine 1-2 Normal 0-4 [facility] Comment on above: Order Comment: Name Collection Type:: Clean-Voided Midstream Performed By: #### A DDONUAPLUS #### [place] [address] [place] Specificy [place],Urine > 1.050 High 1.00 1-1.03 0 [facility] Comment on above: Order Comment: Name Collection Type:: Clean-Voided Midstream Result Comment: Rech ecked by refractometer Performed By: #### A DDONUAPLUS #### [place] [address] [place] Squamous Epithelial Cell,Urine 3-4 High 0-2 [facility] Comment on above: Order Comment: Name Collection Type:: Clean-Voided Midstream Performed By: #### A DDONUAPLUS #### [address] Urobilinogen,Urine Normal Normal Normal [facility] Comment on above: Order Comment: Name Collection Type:: Clean-Voided Midstream Performed By: #### A DDONUAPLUS #### [place] [address] [place] WBC,Urine 1-2 Normal 0-4 [facility] Comment on above: Order Comment: Name Collection Type:: Clean-Voided Midstream Performed By: #### A DDONUAPLUS #### [address] ECG 12 lead ECGon 07-10-2024 ECG 12 lead ECG [facility] [place] [address] Electrocardiograph Report Signed Patient: Loy Hastings MR#: [id number] : 1980 Acct:[id number] Age/Sex: 43 / F ADM Date: 07/10/24 Loc: ER Room: Type: [facility] ER Attending Dr: Ordering Provider: Jovan [...] change was found Confirmed by Lee Burnette ([id number]) on 07/13/2024 1:07:36 PM Referred By: Electronically Signed By: Lee Burnette Transcribed By: MUS Signed By Lee Burnette MD 07/13/24 1307 Normal [facility] Epithelial cells.squamous [# /area] in Urine sediment by Automated countOrdered By: Jovan Hutson on 07-10-2024 Epithelial cells.squamous Auto (Urine sed) [#/Area] 3-4 [HPF] High 0-2 [facility] Erythrocyte distribution wid th [Ratio] by Automated countOrdered By: Jovan Hutson on 07-10-2024 Erythrocyte distribution width (RBC) [Ratio] 15.2 % Normal 11.9-15.3 [facility] Comment on above: Performed By: #### C BC, BMP, PT, PTT, HEPATIC, LIPASE #### [facility] [address] Erythrocytes [#/area] in Uri ne sediment by Automated countOrdered By: Jovan Hutson on 07-10-2024 RBC Auto (Urine sed) [#/Area] 1-2 [HPF] 0-4 [facility] Erythrocytes [#/volume] in B lood by Automated countOrdered By: Jovan Hutson on 07-10-2024 RBC (Bld) [#/Vol] 5.73 10*6/uL High 3.60-5.00 [facility] Comment on above: Performed By: #### C BC, BMP, PT, PTT, HEPATIC, LIPASE #### [facility] [address] [place] [address] [place] Glucose [Mass/volume] in Ser um or PlasmaOrdered By: Jovan Hutson on 07-10-2024 Glucose [Mass/Vol] 85 mg/dL Normal 70-100 [facility] Comment on above: ADA recommended refe rence rangeRandom Glucose Reference Range is dependent on time and content of last meal. Glucose of more than 200 mg/dL in a nonstressed, ambulatory subject supports the diagnosis of Diabetes Mellitus. Result Comment: [place] om Glucose Reference Range is dependent on time and content of last meal. Glucose of more than 200 mg/dL in a nonstressed, ambulatory subject supports the diagnosis of Diabetes Mellitus. ADA recommended reference range Performed By: #### C BC, BMP, PT, PTT, HEPATIC, LIPASE #### [address] Glucose [Mass/volume] in Uri ne by Test stripOrdered By: Jovan Hutosn on 07-10-2024 Glucose Test strip (U) [Mass/Vol] Normal mg/dL Normal [facility] Hematocrit [Volume Fraction] of Blood by Automated countOrdered By: Jovan Hutson on 07-10-2024 Hematocrit (Bld) [Volume fraction] 43.3 % Normal 34.0-46.4 [facility] Comment on above: Performed By: #### C BC, BMP, PT, PTT, HEPATIC, LIPASE #### [address] Hemoglobin Test strip Ql (U) Ordered By: Jovan Hutson on 07-10-2024 Hemoglobin Ql (U) 1+ High Negative [facility] Hemoglobin [Mass/volume] in BloodOrdered By: Jovan Hutson on 07-10-2024 Hemoglobin (Bld) [Mass/Vol] 13.9 g/dL Normal 11.8-15.4 [facility] Comment on above: Performed By: #### C BC, BMP, PT, PTT, HEPATIC, LIPASE #### [facility] [address] Hepatic Panelon 07-10-2024 Albumin [Mass/Vol] 4.2 g/dL Normal 3.5-5.7 [facility] Comment on above: Performed By: #### C BC, BMP, PT, PTT, HEPATIC, LIPASE #### [address] Bilirubin,Indirect 0.3 mg/dL Normal [facility] Comment on above: Performed By: #### C BC, BMP, PT, PTT, HEPATIC, LIPASE #### [facility] [address] Bilirubin.indirect [Mass/Vol] 0.10 mg/dL Normal 0.03-0.18 [facility] Comment on above: Performed By: #### C BC, BMP, PT, PTT, HEPATIC, LIPASE #### [facility] [address] Hyaline casts [#/area] in Ur ine sediment by Automated countOrdered By: Jovan Hutson on 07-10-2024 Hyaline casts Auto (Urine sed) [#/Area] None [LPF] 0-8 [facility] INR in Platelet poor plasma by Coagulation assayOrdered By: Jovan Hutson on 07-10-2024 INR Coag (PPP) [Relative time] 1.1 {INR} Normal [facility] Comment on above: INR Therapeutic Rang e [...] BC, BMP, PT, PTT, HEPATIC, LIPASE #### [facility] [address] Ketones [Presence] in Urine by Test stripOrdered By: Jovan Hutson on 07-10-2024 Ketones Ql (U) Negative Normal Negative [facility] Comment on above: Order Comment: Name Collection Type:: Clean-Voided Midstream Performed By: #### A DDONUAPLUS #### [address] Leukocyte esterase [Presence ] in Urine by Test stripOrdered By: Jovan Hutson on 07-10-2024 Leukocyte esterase Test strip Ql (U) Negative Normal Negative [facility] Comment on above: Order Comment: Name Collection Type:: Clean-Voided Midstream Performed By: #### A DDONUAPLUS #### [address] Leukocytes [#/area] in Urine sediment by Automated countOrdered By: Jovan Hutson on 07-10-2024 WBC Auto (Urine sed) [#/Area] 1-2 [HPF] 0-4 [facility] Leukocytes [#/volume] correc abdias for nucleated erythrocytes in Blood by Automated counOrdered By: Jovan Hutson on 07-10-2024 WBC corrected for nucl RBC Auto (Bld) [#/Vol] 8.5 10*3/uL 3.8-11.6 [facility] Leukocytes [#/volume] in Blo od by Automated countOrdered By: Jovan Hutson on 07-10-2024 WBC (Bld) [#/Vol] 8.5 10*3/uL Normal 3.8-11.6 [facility] Comment on above: Performed By: #### C BC, BMP, PT, PTT, HEPATIC, LIPASE #### [place] [address] [place] Lipase [Enzymatic activity/v olume] in Serum or PlasmaOrdered By: Jovan Hutson on 07-10-2024 Lipase [Catalytic activity/Vol] 15.0 U/L Normal 11.0-82.0 [facility] Comment on above: Result Comment: PERF ORMED BY: [place] [address] PATHOLOGIST DRY CH[employer] OFFBEARER MARTY SALGADO M.D. Performed By: #### C BC, BMP, PT, PTT, HEPATIC, LIPASE #### [address] Lymphocytes [#/volume] in Bl ood by Automated countOrdered By: Jovan Hutson on 07-10-2024 Lymphocytes (Bld) [#/Vol] 2.3 10*3/uL Normal 1.00-4.8 [facility] Comment on above: Performed By: #### C BC, BMP, PT, PTT, HEPATIC, LIPASE #### [facility] [address] [place] [address] Lymphocytes/100 leukocytes i n Blood by Automated countOrdered By: Jovan Hutson on 07-10-2024 Lymphocytes/100 WBC (Bld) 26.5 % Normal . [facility] Comment on above: Performed By: #### C BC, BMP, PT, PTT, HEPATIC, LIPASE #### [address] MCH [Entitic mass] by Automa abdias countOrdered By: Jovan Hutson on 07-10-2024 MCH (RBC) [Entitic mass] 24.3 pg Low 24.7-34.3 [facility] Comment on above: Performed By: #### C BC, BMP, PT, PTT, HEPATIC, LIPASE #### [facility] [address] [place] [address] MCHC Auto (RBC) [Mass/Vol]Or dered By: Jovan Hutson on 07-10-2024 MCHC (RBC) [Mass/Vol] 32.1 g/dL 32.0-35.0 [facility] MCV [Entitic volume] by Auto mated countOrdered By: Jovan Hutson on 07-10-2024 MCV (RBC) [Entitic vol] 75.5 fL Low 80-100 [facility] Comment on above: Performed By: #### C BC, BMP, PT, PTT, HEPATIC, LIPASE #### [facility] [address] [place] [address] Monocyte distribution width [Entitic volume] in Blood by AutomatedOrdered By: Jovan Hutson on 07-10-2024 Monocyte distribution width Auto (Bld) [Entitic vol] 20.46 % High 0.00-20.00 [facility] Comment on above: For adults in ED, MD W > 20.0 may be associated with a higher risk of sepsis during the first 12 hrs of hospital admission Mucus [Presence] in Urine by AutomatedOrdered By: Jovan Hutson on 07-10-2024 Mucus Auto Ql (U) Rare [LPF] [facility] Neutrophils [#/volume] in Bl ood by Automated countOrdered By: Jovan Hutson on 07-10-2024 Neutrophils (Bld) [#/Vol] 5.3 10*3/uL Normal 1.8-7.7 [facility] Comment on above: Performed By: #### C BC, BMP, PT, PTT, HEPATIC, LIPASE #### [facility] [address] [place] [address] Nitrite Test strip Ql (U)Ord ered By: Jovan Hutson on 07-10-2024 Nitrite Ql (U) Negative Negative [facility] No Panel InformationOrdered By: Jovan Hutson on 07-10-2024 Estimated GFR (CKD-EPI) > 60.0 mL/Min [facility]acy Creatinine Clearance (Chem 115.15 [facility] Nucleated erythrocytes [Pres ence] in Blood by Automated countOrdered By: Jovan Hutson on 07-10-2024 Nucleated RBC Auto Ql (Bld) 0.1 /100{WBC} 0-0.5 [facility] Partial Thromboplastin Timeo n 07-10-2024 aPTT Coag (Bld) [Time] 33.6 s Normal 25.1-36.5 [facility] Comment on above: Result Comment: A he matocrit value greater than 55% may lead to inaccurate results in coagulation testing. Patients having hematocrit values >55% require a special collection tube for coagulation studies. Please contact the laboratory at [phone] for redraw instructions. PERFORMED BY: [place] [address] PATHOLOGIST DRY CH[employer] OFFBEARER MARTY SALGADO M.D. Performed By: #### C BC, BMP, PT, PTT, HEPATIC, LIPASE #### [facility] [address] [place], [place] [id number] [facility] Platelet mean volume [Entiti c volume] in Blood by Automated countOrdered By: Jovan Hutson on 07-10-2024 Platelet mean volume (Bld) [Entitic vol] 7.4 fL Normal 6.3-10.7 [facility] Comment on above: Performed By: #### C BC, BMP, PT, PTT, HEPATIC, LIPASE #### [address] Platelets [#/volume] in Bloo d by Automated countOrdered By: Jovan Hutson on 07-10-2024 Platelets (Bld) [#/Vol] 358 10*3/uL Normal 150-450 [facility] Comment on above: Performed By: #### C BC, BMP, PT, PTT, HEPATIC, LIPASE #### [address] Potassium [Moles/volume] in Serum or PlasmaOrdered By: Jovan Hutson on 07-10-2024 Potassium [Moles/Vol] 3.7 mmol/L Normal 3.5-5.1 [facility] Comment on above: Performed By: #### C BC, BMP, PT, PTT, HEPATIC, LIPASE #### [address] Protein Test strip (U) [Mass /Vol]Ordered By: Jovan Hutson on 07-10-2024 Protein (U) [Mass/Vol] Negative Negative [facility] Protein [Mass/volume] in Ser um or PlasmaOrdered By: Jovan Hutson on 07-10-2024 Protein [Mass/Vol] 7.7 g/dL Normal 6.4-8.9 [facility] Comment on above: Performed By: #### C BC, BMP, PT, PTT, HEPATIC, LIPASE #### [address] Prothrombin time (PT)Ordered By: Jovan Hutson on 07-10-2024 PT Coag (PPP) [Time] 12.9 s Normal 9.0-12.9 [facility] Comment on above: A hematocrit value g reater than 55% may lead to inaccurate results in coagulation testing. Patients having hematocrit values >55% require a special collection tube for coagulation studies. Please contact the laboratory at [phone] for redraw instructions. Result Comment: A he matocrit value greater than 55% may lead to inaccurate results in coagulation testing. Patients having hematocrit values >55% require a special collection tube for coagulation studies. Please contact the laboratory at [phone] for redraw instructions. Performed By: #### C BC, BMP, PT, PTT, HEPATIC, LIPASE #### [address] Serum globulin measurement b y calculation (mass/volume)Ordered By: Jovan Hutson on 07-10-2024 Globulin (S) [Mass/Vol] 3.5 g/dL Normal [facility] Comment on above: Performed By: #### C BC, BMP, PT, PTT, HEPATIC, LIPASE #### [address] Serum or plasma albumin/glob ulin mass ratioOrdered By: Jovan Hutson on 07-10-2024 Albumin/Globulin [Mass ratio] 1.2 {ratio} Normal [facility] Comment on above: Performed By: #### C BC, BMP, PT, PTT, HEPATIC, LIPASE #### [address] Serum or plasma anion gap de terminationOrdered By: Jovan Hutson on 07-10-2024 Anion gap [Moles/Vol] 11.0 mmol/L Normal 6.0-15.0 [facility] Comment on above: Performed By: #### C BC, BMP, PT, PTT, HEPATIC, LIPASE #### [address] Serum or plasma non-glucuron idated bilirubin measurement (mass/volume)Ordered By: Jovan Hutson on 07-10-2024 Bilirubin.indirect [Mass/Vol] 0.3 mg/dL [facility] Sodium [Moles/volume] in Ser um or PlasmaOrdered By: Jovan Hutson on 07-10-2024 Sodium [Moles/Vol] 142 mmol/L Normal 136-145 [facility] Comment on above: Performed By: #### C BC, BMP, PT, PTT, HEPATIC, LIPASE #### [address] Specific gravity of Urine by RefractometryOrdered By: Jovan Hutson on 07-10-2024 Specific gravity Refractometry (U) [Rel density] > 1.050 High 1.001-1.03 0 [facility] Comment on above: Rechecked by refract ometer Urea nitrogen [Mass/volume] in Serum or PlasmaOrdered By: Jovan Hutson on 07-10-2024 Urea nitrogen [Mass/Vol] 8 mg/dL Normal 7-25 [facility] Comment on above: Performed By: #### C BC, BMP, PT, PTT, HEPATIC, LIPASE #### [address] Urine appearanceOrdered By: Jovan Hutson on 07-10-2024 Appearance (U) Clear Normal Clear [facility] Comment on above: Order Comment: Name Collection Type:: Clean-Voided Midstream Performed By: #### A DDONUAPLUS #### [address] Urobilinogen Test strip (U) [Mass/Vol]Ordered By: Jovan Hutson on 07-10-2024 Urobilinogen (U) [Mass/Vol] Normal mg/dL Normal [facility] pH of Urine by Test stripOrd ered By: Jovan Hutson on 07-10-2024 pH (U) 6.5 [pH] Normal 5.0-9.0 [facility] Comment on above: Order Comment: Name Collection Type:: Clean-Voided Midstream Performed By: #### A DDONUAPLUS #### [address] Ferritin [Mass/volume] in Se rum or PlasmaOrdered By: Teo Heath on 10-07-2023 Ferritin [Mass/Vol] 23.1 ng/mL 11.0-306.8 [facility] Iron [Mass/volume] in Serum or PlasmaOrdered By: Teo Heath on 10-07-2023 Iron [Mass/Vol] 48 ug/dL 50-212 [facility] Iron binding capacity [Mass/ volume] in Serum or PlasmaOrdered By: Teo Heath on 10-07-2023 Iron binding capacity [Mass/Vol] 389 ug/dL 255-450 [facility] Iron saturation [Mass Fracti on] in Serum or PlasmaOrdered By: Teo Heath on 10-07-2023 Iron saturation [Mass fraction] 12.3 % 20-50 [facility] Thyrotropin [Units/volume] i n Serum or PlasmaOrdered By: Teo Heath on 10-07-2023 TSH Qn 0.91 m[IU]/L 0.45-5.33 [facility] Transferrin [Mass/volume] in Serum or PlasmaOrdered By: Teo Heath on 10-07-2023 Transferrin [Mass/Vol] 278 mg/dL 203-362 [facility] Alanine aminotransferase [En zymatic activity/volume] in Serum or PlasmaOrdered By: Marquise Disla on 07-13-2023 ALT [Catalytic activity/Vol] 25 U/L 7-52 [facility] Albumin [Mass/volume] in Ser um or Plasma by Bromocresol green (BCG) dye binding methoOrdered By: Marquise Disla on 07-13-2023 Albumin BCG dye [Mass/Vol] 4.2 g/dL 3.5-5.7 [facility] Alkaline phosphatase [Enzyma tic activity/volume] in Serum or PlasmaOrdered By: Marquise Disla on 07-13-2023 ALP [Catalytic activity/Vol] 113 U/L 34-104 [facility] Aspartate aminotransferase [ Enzymatic activity/volume] in Serum or PlasmaOrdered By: Marquise Disla on 07-13-2023 AST [Catalytic activity/Vol] 13 U/L 13-39 [facility] Basophils Auto (Bld) [#/Vol] Ordered By: Marquise Disla on 07-13-2023 Basophils (Bld) [#/Vol] 0.1 10*3/uL 0.0-0.2 [facility] Basophils/100 WBC Auto (Bld) Ordered By: Marquise Disla on 07-13-2023 Basophils/100 WBC (Bld) 1.2 % . [facility] Bilirubin.total [Mass/volume ] in Serum or PlasmaOrdered By: Marquise Disla on 07-13-2023 Bilirubin [Mass/Vol] 0.6 mg/dL 0.3-1.0 [facility] Calcium [Mass/volume] in Ser um or PlasmaOrdered By: Marquise Disla on 07-13-2023 Calcium [Mass/Vol] 9.6 mg/dL 8.6-10.3 [facility] Carbon dioxide, total [Moles /volume] in Serum or PlasmaOrdered By: Marquise Disla on 07-13-2023 CO2 [Moles/Vol] 27.9 mmol/L 21.0-31.0 [facility] Chloride [Moles/volume] in S brian or PlasmaOrdered By: Marquise Disla on 07-13-2023 Chloride [Moles/Vol] 106 mmol/L 98-107 [facility] Cholesterol [Mass/volume] in Serum or PlasmaOrdered By: Marquise Disla on 07-13-2023 Cholesterol [Mass/Vol] 208 mg/dL 140-200 [facility] Comment on above: Chol less than 200 m g/dl low riskChol 201-239 mg/dl borderline riskChol 240 mg/dl and greater high risk Cholesterol in LDL Calc [Mas s/Vol]Ordered By: Marquise Disla on 07-13-2023 Cholesterol in LDL [Mass/Vol] 150 mg/dL 0-100 [facility] Comment on above: LDL ATP III CLASSIFI CATIONLDL less than 100 mg/dL OptimalLDL 100-129 mg/dL Near or above optimalLDL 130-159 mg/dL Borderline highLDL 160-189 mg/dL HighLDL greater than 189 mg/dL Very high Cholesterol in LDL [Mass/vol ume] in Serum or PlasmaOrdered By: Marquise Disla on 07-13-2023 Cholesterol in LDL [Mass/Vol] 171 mg/dL 0-100 [facility] Comment on above: LDL ATP III CLASSIFI CATIONLDL less than 100 mg/dL OptimalLDL 100-129 mg/dL Near or above optimalLDL 130-159 mg/dL Borderline highLDL 160-189 mg/dL HighLDL greater than 189 mg/dL Very high Cholesterol in VLDL Calc [Ma ss/Vol]Ordered By: Marquise Disla on 07-13-2023 Cholesterol in VLDL [Mass/Vol] 17 mg/dL [facility] Creatinine [Mass/volume] in Serum or PlasmaOrdered By: Marquise Disla on 07-13-2023 Creatinine [Mass/Vol] 0.69 mg/dL 0.60-1.20 [facility] Eosinophils Auto (Bld) [#/Vo l]Ordered By: Marquise Disla on 07-13-2023 Eosinophils (Bld) [#/Vol] 0.3 10*3/uL 0.0-0.45 [facility] Eosinophils/100 WBC Auto (Bl d)Ordered By: Marquise Disla on 07-13-2023 Eosinophils/100 WBC (Bld) 3.3 % . [facility] Erythrocyte distribution wid th Auto (RBC) [Ratio]Ordered By: Marquise Disla on 07-13-2023 Erythrocyte distribution width (RBC) [Ratio] 16.1 % 11.9-15.3 [facility] Globulin Calc (S) [Mass/Vol] Ordered By: Marquise Disla on 07-13-2023 Globulin (S) [Mass/Vol] 3.4 g/dL [facility] Glucose [Mass/volume] in Ser um or PlasmaOrdered By: Marquise Disla on 07-13-2023 Glucose [Mass/Vol] 87 mg/dL 70-100 [facility] Comment on above: ADA recommended refe rence rangeRandom Glucose Reference Range is dependent on time and content of last meal. Glucose of more than 200 mg/dL in a nonstressed, ambulatory subject supports the diagnosis of Diabetes Mellitus. Hematocrit Auto (Bld) [Volum e fraction]Ordered By: Marquise Disla on 07-13-2023 Hematocrit (Bld) [Volume fraction] 39.7 % 34.0-46.4 [facility] Hemoglobin [Mass/volume] in BloodOrdered By: Marquise Disla on 07-13-2023 Hemoglobin (Bld) [Mass/Vol] 12.8 g/dL 11.8-15.4 [facility] Leukocytes [#/volume] correc abdias for nucleated erythrocytes in Blood by Automated counOrdered By: Marquise Disla on 07-13-2023 WBC corrected for nucl RBC Auto (Bld) [#/Vol] 10.3 10*3/uL 3.8-11.6 [facility] Lymphocytes Auto (Bld) [#/Vo l]Ordered By: Marquise Disla on 07-13-2023 Lymphocytes (Bld) [#/Vol] 3.2 10*3/uL 1.00-4.8 [facility] Lymphocytes/100 WBC Auto (Bl d)Ordered By: Marquise Disla on 07-13-2023 Lymphocytes/100 WBC (Bld) 31.0 % . [facility] MCH Auto (RBC) [Entitic mass ]Ordered By: Marquise Disla on 07-13-2023 MCH (RBC) [Entitic mass] 23.1 pg 24.7-34.3 [facility] MCHC Auto (RBC) [Mass/Vol]Or dered By: Marquise Disla on 07-13-2023 MCHC (RBC) [Mass/Vol] 32.2 g/dL 32.0-35.0 [facility] MCV Auto (RBC) [Entitic vol] Ordered By: Marquise Disla on 07-13-2023 MCV (RBC) [Entitic vol] 71.6 fL 80-100 [facility] Monocytes Auto (Bld) [#/Vol] Ordered By: Marquise Disla on 07-13-2023 Monocytes (Bld) [#/Vol] 0.7 10*3/uL 0.0-0.8 [facility] Monocytes/100 WBC Auto (Bld) Ordered By: Marquise Disla on 07-13-2023 Monocytes/100 WBC (Bld) 6.5 % . [facility] Neutrophils Auto (Bld) [#/Vo l]Ordered By: Marquise Disla on 07-13-2023 Neutrophils (Bld) [#/Vol] 6.0 10*3/uL 1.8-7.7 [facility] Neutrophils/100 WBC Auto (Bl d)Ordered By: Marquise Disla on 07-13-2023 Neutrophils/100 WBC (Bld) 58.0 % . [facility] No Panel InformationOrdered By: Marquise Disla on 07-13-2023 Estimated GFR (CKD-EPI) > 60.0 mL/Min [facility] Creatinine Clearance (Chem N/A [facility] Nucleated erythrocytes [Pres ence] in Blood by Automated countOrdered By: Marquise Disla on 07-13-2023 Nucleated RBC Auto Ql (Bld) 0.2 /100{WBC} 0-0.5 [facility] Platelet mean volume Auto (B ld) [Entitic vol]Ordered By: Marquise Disla on 07-13-2023 Platelet mean volume (Bld) [Entitic vol] 7.2 fL 6.3-10.7 [facility] Platelets Auto (Bld) [#/Vol] Ordered By: Marquise Disla on 07-13-2023 Platelets (Bld) [#/Vol] 394 10*3/uL 150-450 [facility] Potassium [Moles/volume] in Serum or PlasmaOrdered By: Marquise Disla on 07-13-2023 Potassium [Moles/Vol] 4.3 mmol/L 3.5-5.1 [facility] Protein [Mass/volume] in Ser um or PlasmaOrdered By: Marquise Disla on 07-13-2023 Protein [Mass/Vol] 7.6 g/dL 6.4-8.9 [facility] RBC Auto (Bld) [#/Vol]Ordere d By: Marquise Disla on 07-13-2023 RBC (Bld) [#/Vol] 5.55 10*6/uL 3.60-5.00 [facility] Serum or plasma albumin/glob ulin mass ratioOrdered By: Marquise Disla on 07-13-2023 Albumin/Globulin [Mass ratio] 1.2 {ratio} [facility] Serum or plasma anion gap de terminationOrdered By: Marquise Disla on 07-13-2023 Anion gap [Moles/Vol] 11.4 mmol/L 6.0-15.0 [facility] Serum or plasma high density lipoprotein (HDL) cholesterol measurementOrdered By: Marquise Disla on 07-13-2023 Cholesterol in HDL [Mass/Vol] 40 mg/dL 23-92 [facility] Comment on above: HDL CHOL ATP-III CLA SSIFICATION Cardiovascular RiskHDL > or equal to 60 mg/dL LOWHDL < 40 mg/dL HIGH Serum or plasma total choles terol/high density lipoprotein (HDL) cholesterol mass ratOrdered By: Marquise Disla on 07-13-2023 Cholesterol.total/Candy sterol in HDL [Mass ratio] 5.2 {ratio} <5.0 [facility] Sodium [Moles/volume] in Ser um or PlasmaOrdered By: Marquise Disla on 07-13-2023 Sodium [Moles/Vol] 141 mmol/L 136-145 [facility] Triglyceride [Mass/volume] i n Serum or PlasmaOrdered By: Marquise Disla on 07-13-2023 Triglyceride [Mass/Vol] 88 mg/dL 0-149 [facility] Comment on above: TRIG ATP III CLASSIF ICATIONTRIG less than 150 mg/dL NormalTRIG 150-199 mg/dL Borderline highTRIG 200-500 mg/dL High TRIG greater than 500 mg/dL Very highStandard traceable to the Center for Disease Conrtrol and Prevention (CDC) test method. Urea nitrogen [Mass/volume] in Serum or PlasmaOrdered By: Marquise Disla on 07-13-2023 Urea nitrogen [Mass/Vol] 10 mg/dL 7-25 [facility] Vitamin B12 ser/plasOrdered By: Marquise Disla on 07-13-2023 Cobalamin (Vitamin B12) [Mass/Vol] 324 pg/mL 180-914 [facility] WBC Auto (Bld) [#/Vol]Ordere d By: Marquise Disla on 07-13-2023 WBC (Bld) [#/Vol] 10.3 10*3/uL 3.8-11.6 [facility] Automated erythrocytes count in urine sediment (number/area)Ordered By: Agustin Sandra on 07-01-2023 RBC Auto (Urine sed) [#/Area] 5-9 [HPF] 0-4 [facility] Automated leukocytes count i n urine sediment (number/area)Ordered By: Agustin Sandra on 07-01-2023 WBC Auto (Urine sed) [#/Area] 0-1 [HPF] 0-4 [facility] Basophils Auto (Bld) [#/Vol] Ordered By: Agustin Sandra on 07-01-2023 Basophils (Bld) [#/Vol] 0.1 10*3/uL 0.0-0.2 [facility] Basophils/100 WBC Auto (Bld) Ordered By: Agustin Sandra on 07-01-2023 Basophils/100 WBC (Bld) 0.6 % . [facility] Bilirubin Test strip Ql (U)O rdered By: Agustin Sandra on 07-01-2023 Bilirubin Ql (U) Negative Negative [facility] Calcium [Mass/volume] in Ser um or PlasmaOrdered By: Agustin Sandra on 07-01-2023 Calcium [Mass/Vol] 9.3 mg/dL 8.6-10.3 [facility] Carbon dioxide, total [Moles /volume] in Serum or PlasmaOrdered By: Agustin Sandra on 07-01-2023 CO2 [Moles/Vol] 27.9 mmol/L 21.0-31.0 [facility] Chloride [Moles/volume] in S brian or PlasmaOrdered By: Agustin Sandra on 07-01-2023 Chloride [Moles/Vol] 104 mmol/L 98-107 [facility] Color Auto (U)Ordered By: Naun Sandra on 07-01-2023 Color (U) Yellow Yellow [facility] Creatinine [Mass/volume] in Serum or PlasmaOrdered By: Agustin Sandra on 07-01-2023 Creatinine [Mass/Vol] 0.79 mg/dL 0.60-1.20 [facility] Eosinophils Auto (Bld) [#/Vo l]Ordered By: Agustin Sandra on 07-01-2023 Eosinophils (Bld) [#/Vol] 0.1 10*3/uL 0.0-0.45 [facility] Eosinophils/100 WBC Auto (Bl d)Ordered By: Agustin Sandra on 07-01-2023 Eosinophils/100 WBC (Bld) 1.1 % . [facility] Erythrocyte distribution wid th Auto (RBC) [Ratio]Ordered By: Agustin Sandra on 07-01-2023 Erythrocyte distribution width (RBC) [Ratio] 16.1 % 11.9-15.3 [facility] Glucose [Mass/volume] in Ser um or PlasmaOrdered By: Agustin Sandra on 07-01-2023 Glucose [Mass/Vol] 92 mg/dL 70-100 [facility] Comment on above: ADA recommended refe rence rangeRandom Glucose Reference Range is dependent on time and content of last meal. Glucose of more than 200 mg/dL in a nonstressed, ambulatory subject supports the diagnosis of Diabetes Mellitus. HCG ( test) IA.rapi d Ql (U)Ordered By: Agustin Sandra on 07-01-2023 HCG ( test) Ql (U) Negative [facility] Hematocrit Auto (Bld) [Volum e fraction]Ordered By: Agustin Sandra on 07-01-2023 Hematocrit (Bld) [Volume fraction] 38.1 % 34.0-46.4 [facility] Hemoglobin [Mass/volume] in BloodOrdered By: Agustin Sandra on 07-01-2023 Hemoglobin (Bld) [Mass/Vol] 12.3 g/dL 11.8-15.4 [facility] Ketones Auto test strip (U) [Mass/Vol]Ordered By: Agustin Sandra on 07-01-2023 Ketones (U) [Mass/Vol] Negative Negative [facility] Laboratory - UrinalysisOrder ed By: Agustin Sandra on 07-01-2023 Hyaline casts LM Ql (Urine sed) None seen [LPF] 0-8 [facility] Leukocytes [#/volume] correc abdias for nucleated erythrocytes in Blood by Automated counOrdered By: Agustin Sandra on 07-01-2023 WBC corrected for nucl RBC Auto (Bld) [#/Vol] 8.2 10*3/uL 3.8-11.6 [facility] Lymphocytes Auto (Bld) [#/Vo l]Ordered By: Agustin Sandra on 07-01-2023 Lymphocytes (Bld) [#/Vol] 0.7 10*3/uL 1.00-4.8 [facility] Lymphocytes/100 WBC Auto (Bl d)Ordered By: Agustin Sandra on 07-01-2023 Lymphocytes/100 WBC (Bld) 8.1 % . [facility] MCH Auto (RBC) [Entitic mass ]Ordered By: Agustin Sandra on 07-01-2023 MCH (RBC) [Entitic mass] 23.0 pg 24.7-34.3 [facility] MCHC Auto (RBC) [Mass/Vol]Or dered By: Agustin Sandra on 07-01-2023 MCHC (RBC) [Mass/Vol] 32.3 g/dL 32.0-35.0 [facility] MCV Auto (RBC) [Entitic vol] Ordered By: Agustin Sandra on 07-01-2023 MCV (RBC) [Entitic vol] 71.2 fL 80-100 [facility] Monocyte distribution width [Entitic volume] in Blood by AutomatedOrdered By: Agustin Sandra on 07-01-2023 Monocyte distribution width Auto (Bld) [Entitic vol] 24.10 % 0.00-20.00 [facility] Comment on above: For adults in ED, MD W > 20.0 may be associated with a higher risk of sepsis during the first 12 hrs of hospital admission Monocytes Auto (Bld) [#/Vol] Ordered By: Agustin Sandra on 07-01-2023 Monocytes (Bld) [#/Vol] 0.7 10*3/uL 0.0-0.8 [facility] Monocytes/100 WBC Auto (Bld) Ordered By: Agustin Sandra on 07-01-2023 Monocytes/100 WBC (Bld) 8.5 % . [facility] Neutrophils Auto (Bld) [#/Vo l]Ordered By: Agustin Sandra on 07-01-2023 Neutrophils (Bld) [#/Vol] 6.7 10*3/uL 1.8-7.7 [facility] Neutrophils/100 WBC Auto (Bl d)Ordered By: Agustin Sandra on 07-01-2023 Neutrophils/100 WBC (Bld) 81.7 % . [facility] Nitrite Test strip Ql (U)Ord ered By: Agustin Sandra on 07-01-2023 Nitrite Ql (U) Negative Negative [facility] No Panel InformationOrdered By: Agustin Sandra on 07-01-2023 Estimated GFR (CKD-EPI) > 60.0 mL/Min [facility] Creatinine Clearance (Chem 127.26 [facility] Nucleated erythrocytes [Pres ence] in Blood by Automated countOrdered By: Agustin Sandra on 07-01-2023 Nucleated RBC Auto Ql (Bld) 0.0 /100{WBC} 0-0.5 [facility] Platelet mean volume Auto (B ld) [Entitic vol]Ordered By: Agustin Sandra on 07-01-2023 Platelet mean volume (Bld) [Entitic vol] 7.4 fL 6.3-10.7 [facility] Platelets Auto (Bld) [#/Vol] Ordered By: Agustin Sandra on 07-01-2023 Platelets (Bld) [#/Vol] 320 10*3/uL 150-450 [facility] Potassium [Moles/volume] in Serum or PlasmaOrdered By: Agustin Sandra on 07-01-2023 Potassium [Moles/Vol] 3.9 mmol/L 3.5-5.1 [facility] Protein Auto test strip (U) [Mass/Vol]Ordered By: Agustin Sandra on 07-01-2023 Protein (U) [Mass/Vol] Negative Negative [facility] RBC Auto (Bld) [#/Vol]Ordere d By: Agustin Sandra on 07-01-2023 RBC (Bld) [#/Vol] 5.35 10*6/uL 3.60-5.00 [facility] Serum or plasma anion gap de terminationOrdered By: Agustin Sandra on 07-01-2023 Anion gap [Moles/Vol] 11.0 mmol/L 6.0-15.0 [facility] Sodium [Moles/volume] in Ser um or PlasmaOrdered By: Agustin Sandra on 07-01-2023 Sodium [Moles/Vol] 139 mmol/L 136-145 [facility] Specific gravity Auto test s trip (U) [Rel density]Ordered By: Agustin Sandra on 07-01-2023 Specific gravity (U) [Rel density] 1.012 1.001-1.03 0 [facility] Squamous epithelial cells de tection in urine sediment by light microscopyOrdered By: Agustin Sandra on 07-01-2023 Epithelial cells.squamous LM Ql (Urine sed) 0-1 [HPF] 0-2 [facility] Urea nitrogen [Mass/volume] in Serum or PlasmaOrdered By: Agustin Sandra on 07-01-2023 Urea nitrogen [Mass/Vol] 7 mg/dL 7-25 [facility] Urine bacteria detection by automated methodOrdered By: Agustin Sandra on 07-01-2023 Bacteria Auto Ql (U) None seen None Seen [facility] Urine clarity by refractomet ry automatedOrdered By: Agustin Sandra on 07-01-2023 Clarity Refractometry automated (U) Cloudy Clear [facility] Urine glucose measurement by automated test strip (mass/volume)Ordered By: Agustin Sandra on 07-01-2023 Glucose Auto test strip (U) [Mass/Vol] Normal mg/dL Normal [facility] Urine hemoglobin detection b y automated test stripOrdered By: Agustin Sandra on 07-01-2023 Hemoglobin Auto test strip Ql (U) Trace Negative [facility] Urine leukocyte esterase det ection by automated test stripOrdered By: Agustin Sandra on 07-01-2023 Leukocyte esterase Auto test strip Ql (U) Negative Negative [facility] Urobilinogen Auto test strip (U) [Mass/Vol]Ordered By: Agustin Sandra on 07-01-2023 Urobilinogen (U) [Mass/Vol] Normal mg/dL Normal [facility] WBC Auto (Bld) [#/Vol]Ordere d By: Agustin Sandra on 07-01-2023 WBC (Bld) [#/Vol] 8.2 10*3/uL 3.8-11.6 [facility] pH Auto test strip (U)Ordere d By: Agustin Sandra on 07-01-2023 pH (U) 8.5 [pH] 5.0-9.0 [facility] Basophils Auto (Bld) [#/Vol] Ordered By: Lars Guerra on 05-31-2023 Basophils (Bld) [#/Vol] 0.1 10*3/uL 0.0-0.2 [facility] Basophils/100 WBC Auto (Bld) Ordered By: Lars Guerra on 05-31-2023 Basophils/100 WBC (Bld) 1.5 % . [facility] Calcium [Mass/volume] in Ser um or PlasmaOrdered By: Lars Guerra on 05-31-2023 Calcium [Mass/Vol] 9.1 mg/dL 8.6-10.3 [facility] Carbon dioxide, total [Moles /volume] in Serum or PlasmaOrdered By: Lars Guerra on 05-31-2023 CO2 [Moles/Vol] 29.3 mmol/L 21.0-31.0 [facility] Chloride [Moles/volume] in S brian or PlasmaOrdered By: Lars Guerra on 05-31-2023 Chloride [Moles/Vol] 106 mmol/L 98-107 [facility] Creatinine [Mass/volume] in Serum or PlasmaOrdered By: Lars Guerra on 05-31-2023 Creatinine [Mass/Vol] 0.87 mg/dL 0.60-1.20 [facility] Eosinophils Auto (Bld) [#/Vo l]Ordered By: Lars Guerra on 05-31-2023 Eosinophils (Bld) [#/Vol] 0.3 10*3/uL 0.0-0.45 [facility] Eosinophils/100 WBC Auto (Bl d)Ordered By: Lars Guerra on 05-31-2023 Eosinophils/100 WBC (Bld) 3.5 % . [facility] Erythrocyte distribution wid th Auto (RBC) [Ratio]Ordered By: Lars Guerra on 05-31-2023 Erythrocyte distribution width (RBC) [Ratio] 16.2 % 11.9-15.3 [facility] Glucose [Mass/volume] in Ser um or PlasmaOrdered By: Lars Guerra on 05-31-2023 Glucose [Mass/Vol] 91 mg/dL 70-100 [facility] Comment on above: ADA recommended refe rence rangeRandom Glucose Reference Range is dependent on time and content of last meal. Glucose of more than 200 mg/dL in a nonstressed, ambulatory subject supports the diagnosis of Diabetes Mellitus. Hematocrit Auto (Bld) [Volum e fraction]Ordered By: Lars Guerra on 05-31-2023 Hematocrit (Bld) [Volume fraction] 38.8 % 34.0-46.4 [facility] Hemoglobin [Mass/volume] in BloodOrdered By: Lars Guerra on 05-31-2023 Hemoglobin (Bld) [Mass/Vol] 12.4 g/dL 11.8-15.4 [facility] Leukocytes [#/volume] correc abdias for nucleated erythrocytes in Blood by Automated counOrdered By: Lars Guerra on 05-31-2023 WBC corrected for nucl RBC Auto (Bld) [#/Vol] 9.9 10*3/uL 3.8-11.6 [facility] Lymphocytes Auto (Bld) [#/Vo l]Ordered By: Lars Guerra on 05-31-2023 Lymphocytes (Bld) [#/Vol] 3.7 10*3/uL 1.00-4.8 [facility] Lymphocytes/100 WBC Auto (Bl d)Ordered By: Lars Guerra on 05-31-2023 Lymphocytes/100 WBC (Bld) 37.9 % . [facility] MCH Auto (RBC) [Entitic mass ]Ordered By: Lars Guerra on 05-31-2023 MCH (RBC) [Entitic mass] 23.0 pg 24.7-34.3 [facility] MCHC Auto (RBC) [Mass/Vol]Or dered By: Lars Guerra on 05-31-2023 MCHC (RBC) [Mass/Vol] 31.9 g/dL 32.0-35.0 [facility] MCV Auto (RBC) [Entitic vol] Ordered By: Lars Guerra on 05-31-2023 MCV (RBC) [Entitic vol] 72.0 fL 80-100 [facility] Monocyte distribution width [Entitic volume] in Blood by AutomatedOrdered By: Lars Guerra on 05-31-2023 Monocyte distribution width Auto (Bld) [Entitic vol] 18.79 % 0.00-20.00 [facility] Monocytes Auto (Bld) [#/Vol] Ordered By: Lars Guerra on 05-31-2023 Monocytes (Bld) [#/Vol] 0.5 10*3/uL 0.0-0.8 [facility] Monocytes/100 WBC Auto (Bld) Ordered By: Lars Guerra on 05-31-2023 Monocytes/100 WBC (Bld) 5.1 % . [facility] Neutrophils Auto (Bld) [#/Vo l]Ordered By: Lars Guerra on 05-31-2023 Neutrophils (Bld) [#/Vol] 5.1 10*3/uL 1.8-7.7 [facility] Neutrophils/100 WBC Auto (Bl d)Ordered By: Lasr Guerra on 05-31-2023 Neutrophils/100 WBC (Bld) 52.0 % . [facility] No Panel InformationOrdered By: Lars Guerra on 05-31-2023 Estimated GFR (CKD-EPI) > 60.0 mL/Min [facility] Creatinine Clearance (Chem 112.72 [facility] Nucleated erythrocytes [Pres ence] in Blood by Automated countOrdered By: Lars Guerra on 05-31-2023 Nucleated RBC Auto Ql (Bld) 0.2 /100{WBC} 0-0.5 [facility] Platelet mean volume Auto (B ld) [Entitic vol]Ordered By: Lars Guerra on 05-31-2023 Platelet mean volume (Bld) [Entitic vol] 7.3 fL 6.3-10.7 [facility] Platelets Auto (Bld) [#/Vol] Ordered By: Lars Guerra on 05-31-2023 Platelets (Bld) [#/Vol] 349 10*3/uL 150-450 [facility] Potassium [Moles/volume] in Serum or PlasmaOrdered By: Lars Guerra on 05-31-2023 Potassium [Moles/Vol] 3.5 mmol/L 3.5-5.1 [facility] RBC Auto (Bld) [#/Vol]Ordere d By: Lars Guerra on 05-31-2023 RBC (Bld) [#/Vol] 5.39 10*6/uL 3.60-5.00 [facility] Serum or plasma anion gap de terminationOrdered By: Lars Guerra on 05-31-2023 Anion gap [Moles/Vol] 10.2 mmol/L 6.0-15.0 [facility] Sodium [Moles/volume] in Ser um or PlasmaOrdered By: Lars Guerra on 05-31-2023 Sodium [Moles/Vol] 142 mmol/L 136-145 [facility] Troponin I.cardiac [Mass/vol ume] in Serum or Plasma by Detection limit <= 0.01 ng/Ordered By: Lars Guerra on 05-31-2023 Troponin I.cardiac DL <= 0.01 ng/mL [Mass/Vol] 5.9 pg/mL 0.0-15.0 [facility] Urea nitrogen [Mass/volume] in Serum or PlasmaOrdered By: Lars Guerra on 05-31-2023 Urea nitrogen [Mass/Vol] 9 mg/dL 7-25 [facility] WBC Auto (Bld) [#/Vol]Ordere d By: Lars Guerra on 05-31-2023 WBC (Bld) [#/Vol] 9.9 10*3/uL 3.8-11.6 [facility] Serum heterophile antibody d etection by latex agglutinationOrdered By: Arnoldo Pérez on 01-19-2023 Heterophile Ab LA Ql (S) Negative Negative [facility] Streptococcus pyogenes antig en detectionOrdered By: Arnoldo Pérez on 01-19-2023 S. pyogenes Ag Ql (Unsp spec) [facility] COVID CepheidOrdered By: Radha Cooper on 01-08-2023 SARS-CoV-2 (COVID-19) Ab IA Ql Negative Negative [facility] Comment on above: This is a duplicate CepSilverpopid Xpert Xpress CoV-2/Flu/RSV Plus RNA by RT-PCR result to be used for statistical tracking purpose only. SARS-CoV-2 (COVID-19) RNA AMBROSE+probe Ql (Unsp spec) [facility] Streptococcus pyogenes antig en detectionOrdered By: Caitlyn Cooper on 01-04-2023 S. pyogenes Ag Ql (Unsp spec) [facility] COVID CepheidOrdered By: Cachorro Breaux on 11-17-2022 SARS-CoV-2 (COVID-19) Ab IA Ql Negative Negative [facility] Comment on above: This is a duplicate Cepheid Xpert Xpress CoV-2/Flu/RSV Plus RNA by RT-PCR result to be used for statistical tracking purpose only. SARS-CoV-2 (COVID-19) RNA AMBROSE+probe Ql (Unsp spec) [facility] SARS-CoV-2 (COVID-19) RNA AMBROSE+probe Ql (Unsp spec) [facility] COVID-19 SOFIAOrdered By: Jose Pearl on 08-23-2022 SARS-CoV+SARS-CoV-2 (COVID-19) Ag IA.rapid Ql (Resp) Negative Negative [facility] Comment on above: This is a duplicate Lilibeth SARS Antigen (REGINO) result to be used for statistical tracking purpose only. No Panel InformationOrdered By: Praveen Pearl on 08-23-2022 SARS Antigen (LFIA) [facility] POINT OF CARE GLUCOSEon 05-0 Glucose [Mass/Vol] 116 mg/dL Critically high 74-106 T [facility] Comment on above: Performed By: #### P OCGLUC #### [facility] [address] [address] [address] Mai Salamanca PREG HCG QUALon 03-30-2022 , QUAL Negative Normal NEGATIVE [facility] Comment on above: Performed By: #### P REG #### [facility] [address] [address] [address] Mai Salamanca Vital Signs Date Time Vital Sign Value Performing Clinician Facility 04-08-2025 01:10-0400 Diastolic blood pressure 58 mm[Hg] Services [facility] [employer] Work Phone: [facility] 04-08-2025 01:10-0400 Heart rate 84 /min Services [facility] Work Phone: [facility] 04-08-2025 01:10-0400 Respiratory rate 16 /min Services [facility] Work Phone: [facility] 04-08-2025 01:10-0400 SaO2% (BldA) [Mass fraction] 98 % Services [facility] Work Phone: [facility] 04-08-2025 01:10-0400 Systolic blood pressure 139 mm[Hg] [facility] Work Phone: [facility] 04-07-2025 23:41-0400 Body height 176.53 cm [facility] Work Phone: [facility] 04-07-2025 23:41-0400 Body temperature 98.3 [degF] [facility] Work Phone: [facility] 04-07-2025 23:41-0400 Body weight 110.6 kg [facility] Work Phone: [facility] 04-03-2025 05:00-0400 Diastolic blood pressure 66 mm[Hg] [facility] Work Phone: [facility] 04-03-2025 05:00-0400 Heart rate 95 /min [facility] Work Phone: [facility] 04-03-2025 05:00-0400 Respiratory rate 20 /min [facility] Work Phone: [facility] 04-03-2025 05:00-0400 SaO2% (BldA) [Mass fraction] 100 % [facility] Work Phone: [facility] 04-03-2025 05:00-0400 Systolic blood pressure 128 mm[Hg] [facility] Work Phone: [facility] 04-03-2025 00:32-0400 Body height 176.53 cm [facility] Work Phone: [facility] 04-03-2025 00:32-0400 Body temperature 99.4 [degF] [facility] Work Phone: [facility] 04-03-2025 00:32-0400 Body weight 109.76 kg [facility] Work Phone: [facility] 03-28-2025 07:47-0400 Body height 176.53 cm [facility] Work Phone: [facility] 03-28-2025 07:47-0400 Body temperature 97.8 [degF] [facility] Work Phone: [facility] 03-28-2025 07:47-0400 Body weight 114 kg Services [employer] Work Phone: [facility] 03-28-2025 07:47-0400 Diastolic blood pressure 72 mm[Hg] Services [facility] [employer] Work Phone: [facility] 03-28-2025 07:47-0400 Heart rate 88 /min Services [facility] [employer] Work Phone: [facility] 03-28-2025 07:47-0400 Respiratory rate 20 /min Services [facility] Work Phone: [facility] 03-28-2025 07:47-0400 SaO2% (BldA) [Mass fraction] 98 % Services [facility] [employer] Work Phone: [facility] 03-28-2025 07:47-0400 Systolic blood pressure 144 mm[Hg] Services [facility] [employer] Work Phone: [facility] 03-19-2025 13:52-0400 Body mass index (BMI) [Ratio] 39.78 kg/m2 Raj Visci DO Work Phone: [facility] 03-19-2025 13:52-0400 Body weight 115.21 kg Raj Visci DO Work Phone: [facility] 03-19-2025 13:52-0400 Diastolic blood pressure 72 mm[Hg] Raj Visci DO Work Phone: [facility] 03-19-2025 13:52-0400 Systolic blood pressure 122 mm[Hg] Raj Visci DO Work Phone: [facility] 02-21-2025 13:14-0400 Body mass index (BMI) [Ratio] 38.22 kg/m2 Mariana Mccray MD Work Phone: [facility] 02-21-2025 13:14-0400 Body weight 110.68 kg Mariana Mccray MD Work Phone: [facility] 02-21-2025 13:14-0400 Diastolic blood pressure 80 mm[Hg] Mariana Mccray MD Work Phone: [facility] 02-21-2025 13:14-0400 Systolic blood pressure 138 mm[Hg] Mariana Mccray MD Work Phone: [facility] 01-10-2025 14:21-0500 Body mass index (BMI) [Ratio] 40.25 kg/m2 Mariana Mccray MD Work Phone: [facility] 01-10-2025 14:21-0500 Body weight 116.57 kg Mariana Mccray MD Work Phone: [facility] 12-05-2024 22:21-0500 Body height 175.26 cm Services [facility] Work Phone: [facility] 12-05-2024 22:21-0500 Body temperature 98.2 [degF] Services [facility] Work Phone: [facility] 12-05-2024 22:21-0500 Body weight 114.3 kg [facility] Work Phone: [facility] 12-05-2024 22:21-0500 Diastolic blood pressure 77 mm[Hg] [facility] Work Phone: [facility] 12-05-2024 22:21-0500 Heart rate 91 /min Services [facility] Work Phone: [facility] 12-05-2024 22:21-0500 Respiratory rate 16 /min [facility] Work Phone: [facility] 12-05-2024 22:21-0500 SaO2% (BldA) [Mass fraction] 100 % [facility] Work Phone: [facility] 12-05-2024 22:21-0500 Systolic blood pressure 136 mm[Hg] [facility] Work Phone: [facility] 08-23-2024 13:37-0400 Diastolic blood pressure 86 mm[Hg] Services [facility] Work Phone: [facility] 08-23-2024 13:37-0400 Heart rate 86 /min [facility] Work Phone: [facility] 08-23-2024 13:37-0400 Respiratory rate 16 /min [facility] Work Phone: [facility] 08-23-2024 13:37-0400 SaO2% (BldA) [Mass fraction] 100 % [facility] Work Phone: [facility] 08-23-2024 13:37-0400 Systolic blood pressure 130 mm[Hg] [facility] Work Phone: [facility] 08-23-2024 12:43-0400 Body height 175.26 cm [facility] Work Phone: [facility] 08-23-2024 12:43-0400 Body weight 111.58 kg [facility] Work Phone: [facility] 08-23-2024 12:40-0400 Body temperature 97.9 [degF] [facility] Work Phone: [facility] 08-07-2024 11:03-0400 Body height 176.53 cm [facility] Work Phone: [facility] 08-07-2024 11:03-0400 Body temperature 99 [degF] [facility] Work Phone: [facility] 08-07-2024 11:03-0400 Body weight 112 kg [facility] Work Phone: [facility] 08-07-2024 11:03-0400 Diastolic blood pressure 83 mm[Hg] [facility] Work Phone: [facility] 08-07-2024 11:03-0400 Heart rate 105 /min [facility] Work Phone: [facility] 08-07-2024 11:03-0400 Respiratory rate 18 /min [facility] Work Phone: [facility] 08-07-2024 11:03-0400 SaO2% (BldA) [Mass fraction] 100 % [facility] Work Phone: [facility] 08-07-2024 11:03-0400 Systolic blood pressure 155 mm[Hg] [facility] Work Phone: [facility] 07-10-2024 19:29-0400 Diastolic blood pressure 92 mm[Hg] [facility] Work Phone: [facility] 07-10-2024 19:29-0400 Heart rate 83 /min [facility] Work Phone: [facility] 07-10-2024 19:29-0400 Respiratory rate 18 /min [facility] Work Phone: [facility] 07-10-2024 19:29-0400 SaO2% (BldA) [Mass fraction] 99 % [facility] Work Phone: [facility] 07-10-2024 19:29-0400 Systolic blood pressure 143 mm[Hg] [facility] Work Phone: [facility] 07-10-2024 16:27-0400 Body height 175.26 cm [facility] Work Phone: [facility] 07-10-2024 16:27-0400 Body temperature 98.7 [degF] [facility] Work Phone: [facility] 07-10-2024 16:27-0400 Body weight 113.75 kg [facility] Work Phone: [facility] 07-01-2023 11:53-0400 Diastolic blood pressure 85 mm[Hg] [facility] Work Phone: [facility] 07-01-2023 11:53-0400 Heart rate 92 /min [facility] Work Phone: [facility] 07-01-2023 11:53-0400 Systolic blood pressure 149 mm[Hg] [facility] Work Phone: [facility] 07-01-2023 09:37-0400 Body height 176.53 cm [facility] Work Phone: [facility] 07-01-2023 09:37-0400 Body temperature 99.3 [degF] [facility] Work Phone: [facility] 07-01-2023 09:37-0400 Body weight 122.46 kg [facility] Work Phone: [facility] 07-01-2023 09:37-0400 Respiratory rate 24 /min [facility] Work Phone: [facility] 07-01-2023 09:37-0400 SaO2% (BldA) [Mass fraction] 99 % [facility] Work Phone: [facility] 06-19-2023 00:00-0400 Diastolic blood pressure 61 mm[Hg] [facility] Work Phone: [facility] 06-19-2023 00:00-0400 Heart rate 71 /min [facility] Work Phone: [facility] 06-19-2023 00:00-0400 Respiratory rate 20 /min [facility] Work Phone: [facility] 06-19-2023 00:00-0400 SaO2% (BldA) [Mass fraction] 100 % [facility] Work Phone: [facility] 06-19-2023 00:00-0400 Systolic blood pressure 129 mm[Hg] [facility] Work Phone: [facility] 06-18-2023 21:21-0400 Body height 175.26 cm [facility] Work Phone: [facility] 06-18-2023 21:21-0400 Body weight 117.02 kg [facility] Work Phone: [facility] 06-18-2023 21:20-0400 Body temperature 98.6 [degF] [facility] Work Phone: [facility] 06-03-2023 11:58-0400 Diastolic blood pressure 90 mm[Hg] [facility] Work Phone: [facility] 06-03-2023 11:58-0400 Heart rate 91 /min [facility] Work Phone: [facility] 06-03-2023 11:58-0400 Systolic blood pressure 145 mm[Hg] [facility] Work Phone: [facility] 05-31-2023 04:30-0400 Diastolic blood pressure 82 mm[Hg] [facility] Work Phone: [facility] 05-31-2023 04:30-0400 Heart rate 75 /min [facility] Work Phone: [facility] 05-31-2023 04:30-0400 Respiratory rate 20 /min [facility] Work Phone: [facility] 05-31-2023 04:30-0400 SaO2% (BldA) [Mass fraction] 98 % [facility] Work Phone: [facility] 05-31-2023 04:30-0400 Systolic blood pressure 150 mm[Hg] [facility] Work Phone: [facility] 05-30-2023 23:32-0400 Body height 176.53 cm [facility] Work Phone: [facility] 05-30-2023 23:32-0400 Body temperature 98.2 [degF] [facility] Work Phone: [facility] 05-30-2023 23:32-0400 Body weight 117.02 kg [facility] Work Phone: [facility] 04-18-2023 12:10-0400 Body temperature 98.2 [degF] [facility] Work Phone: [facility] 04-18-2023 12:10-0400 Diastolic blood pressure 91 mm[Hg] [facility] Work Phone: [facility] 04-18-2023 12:10-0400 Heart rate 86 /min [facility] Work Phone: [facility] 04-18-2023 12:10-0400 Respiratory rate 18 /min [facility] Work Phone: [facility] 04-18-2023 12:10-0400 SaO2% (BldA) [Mass fraction] 100 % [facility] Work Phone: [facility] 04-18-2023 12:10-0400 Systolic blood pressure 169 mm[Hg] [facility] Work Phone: [facility] 04-18-2023 12:06-0400 Body height 175.26 cm [facility] Work Phone: [facility] 04-18-2023 12:06-0400 Body weight 129.1 kg [facility] Work Phone: [facility] 01-19-2023 09:40-0500 Diastolic blood pressure 67 mm[Hg] [facility] Work Phone: [facility] 01-19-2023 09:40-0500 Heart rate 86 /min [facility] Work Phone: [facility] 01-19-2023 09:40-0500 Respiratory rate 20 /min [facility] Work Phone: [facility] 01-19-2023 09:40-0500 SaO2% (BldA) [Mass fraction] 100 % [facility] Work Phone: [facility] 01-19-2023 09:40-0500 Systolic blood pressure 145 mm[Hg] [facility] Work Phone: [facility] 01-19-2023 07:19-0500 Body height 175.26 cm [facility] Work Phone: [facility] 01-19-2023 07:19-0500 Body temperature 98 [degF] [facility] Work Phone: [facility] 01-19-2023 07:19-0500 Body weight 127.3 kg [facility] Work Phone: [facility] 01-08-2023 14:52-0500 Body height 176.53 cm [facility] Work Phone: [facility] 01-08-2023 14:52-0500 Body temperature 98.9 [degF] [facility] Work Phone: [facility] 01-08-2023 14:52-0500 Body weight 124.45 kg [facility] Work Phone: [facility] 01-08-2023 14:52-0500 Diastolic blood pressure 74 mm[Hg] [facility] Work Phone: [facility] 01-08-2023 14:52-0500 Heart rate 93 /min [facility] Work Phone: [facility] 01-08-2023 14:52-0500 Respiratory rate 20 /min [facility] Work Phone: [facility] 01-08-2023 14:52-0500 SaO2% (BldA) [Mass fraction] 98 % [facility] Work Phone: [facility] 01-08-2023 14:52-0500 Systolic blood pressure 143 mm[Hg] [facility] Work Phone: [facility] 01-04-2023 11:34-0500 Body height 175.26 cm [facility] Work Phone: [facility] 01-04-2023 11:34-0500 Body temperature 98.7 [degF] [facility] Work Phone: [facility] 01-04-2023 11:34-0500 Body weight 107.9 kg [facility] Work Phone: [facility] 01-04-2023 11:34-0500 Diastolic blood pressure 91 mm[Hg] [facility] Work Phone: [facility] 01-04-2023 11:34-0500 Heart rate 98 /min [facility] Work Phone: [facility] 01-04-2023 11:34-0500 Respiratory rate 18 /min [facility] Work Phone: [facility] 01-04-2023 11:34-0500 SaO2% (BldA) [Mass fraction] 100 % [facility] Work Phone: [facility] 01-04-2023 11:34-0500 Systolic blood pressure 165 mm[Hg] [facility] Work Phone: [facility] 11-17-2022 02:32-0500 Diastolic blood pressure 98 mm[Hg] [facility] Work Phone: [facility] 11-17-2022 02:32-0500 Heart rate 92 /min [facility] Work Phone: [facility] 11-17-2022 02:32-0500 Respiratory rate 18 /min [facility] Work Phone: [facility] 11-17-2022 02:32-0500 SaO2% (BldA) [Mass fraction] 98 % [facility] Work Phone: [facility] 11-17-2022 02:32-0500 Systolic blood pressure 168 mm[Hg] [facility] Work Phone: [facility] 11-16-2022 23:12-0500 Body height 176.53 cm Services [facility] Work Phone: [facility] 11-16-2022 23:12-0500 Body weight 126.35 kg [facility] Work Phone: [facility] 11-16-2022 23:11-0500 Body temperature 98.1 [degF] [facility] Work Phone: [facility] 09-17-2022 23:07-0400 Body height 175.26 cm [facility] Work Phone: [facility] 09-17-2022 23:07-0400 Body temperature 98.2 [degF] Services [employer] Work Phone: [facility] 09-17-2022 23:07-0400 Body weight 124.25 kg Services [employer] Work Phone: [facility] 09-17-2022 23:07-0400 Diastolic blood pressure 70 mm[Hg] Services [facility] [employer] Work Phone: [facility] 09-17-2022 23:07-0400 Heart rate 75 /min Services [employer] Work Phone: [facility] 09-17-2022 23:07-0400 Respiratory rate 18 /min Services [facility] Work Phone: [facility] 09-17-2022 23:07-0400 SaO2% (BldA) [Mass fraction] 94 % Services [facility] Work Phone: [facility] 09-17-2022 23:07-0400 Systolic blood pressure 153 mm[Hg] Services [facility] [employer] Work Phone: [facility] 08-23-2022 07:17-0400 Body height 175.26 cm DO Raj Visci Work Phone: [facility] 08-23-2022 07:17-0400 Body temperature 98.2 [degF] DO Raj Visci Work Phone: [facility] 08-23-2022 07:17-0400 Body weight 110.22 kg DO Raj Visci Work Phone: [facility] 08-23-2022 07:17-0400 Diastolic blood pressure 75 mm[Hg] DO Raj Visci Work Phone: [facility] 08-23-2022 07:17-0400 Heart rate 83 /min DO Raj Visci Work Phone: [facility] 08-23-2022 07:17-0400 Respiratory rate 18 /min DO Raj Visci Work Phone: [facility] 08-23-2022 07:17-0400 SaO2% (BldA) [Mass fraction] 100 % DO Raj Visci Work Phone: [facility] 08-23-2022 07:17-0400 Systolic blood pressure 145 mm[Hg] DO Raj Visci Work Phone: [facility] 07-13-2022 12:00-0400 Body height 175.26 cm Jase Olexa Other [facility] [employer] Other 07-13-2022 12:00-0400 Body mass index (BMI) [Ratio] 39.13 kg/m2 Jase Olexa Other [facility] [employer] Other 07-13-2022 12:00-0400 Body weight 120.2 kg Jase Olexa Other [facility] [employer] Other 07-06-2022 21:44-0400 Body height 176.53 cm DO Raj Visci Work Phone: [facility] 07-06-2022 21:44-0400 Body weight 112.49 kg DO Raj Visci Work Phone: [facility] 07-06-2022 21:43-0400 Body temperature 98.2 [degF] DO Raj Visci Work Phone: [facility] 07-06-2022 21:43-0400 Diastolic blood pressure 72 mm[Hg] DO Raj Visci Work Phone: [facility] 07-06-2022 21:43-0400 Heart rate 93 /min DO Raj Visci Work Phone: [facility] 07-06-2022 21:43-0400 Respiratory rate 17 /min DO Raj Visci Work Phone: [facility] 07-06-2022 21:43-0400 SaO2% (BldA) [Mass fraction] 100 % DO Raj Visci Work Phone: [facility] 07-06-2022 21:43-0400 Systolic blood pressure 135 mm[Hg] DO Raj Loaiza Work Phone: [facility] 2019 13:18-0500 BMI (Body Mass Index) 40.2 kg/m2 [facility] 2019 13:18-0500 Body Temperature 98.2 [degF] [facility] Body weight 127.3 kg Raj [facility] 2019 13:18-0500 BP Diastolic 81 mm[Hg] Raj [facility] 2019 13:18-0500 BP Systolic 143 mm[Hg] [facility] 2019 13:18-0500 Height 177.8 cm [facility] 2019 13:18-0500 Pulse (Heart Rate) 88 /min Raj [facility] 2019 13:18-0500 Pulse Oximetry 99 % [facility] 2019 13:18-0500 Respiratory Rate 17 /min [facility] Encounters Encounter Date Encounter Type Care Provider Facility Start: 04-10-2025 End: 04-10-2025 Patient encounter procedure [facility] Work Phone: [facility] Work Phone: Start: 04-10-2025 End: 04-10-2025 ambulatory Services [facility] Work Phone: [facility] Work Phone: Start: 04-10-2025 Encounter for other preprocedural examination Sneha Joe [facility] Start: 04-07-2025 End: 04-08-2025 Emergency department patient visit [facility] Work Phone: [facility] Work Phone: Start: 04-03-2025 End: 04-03-2025 Emergency department patient visit [facility] Work Phone: [facility] Work Phone: Start: 03-28-2025 End: 03-28-2025 Emergency department patient visit Services [facility] Work Phone: [facility] Work Phone: Start: 03-19-2025 End: 03-19-2025 ambulatory RAJ A VISCI Not Available Start: 03-19-2025 End: 03-19-2025 Office outpatient visit 25 minutes Raj A Visci DO Work Phone: [facility] Comment on above: Menorrhagia with irr egular cycle; Dysmenorrhea; Intrauterine device surveillance; Uterine prolapse Start: 02-27-2025 End: 02-27-2025 Orders Only Mariana Mccray MD Work Phone: [facility] Comment on above: Acute vaginitis (Tracee tanner Dx) Start: 02-21-2025 End: 02-21-2025 ambulatory MARIANA MCCRAY Not Available Start: 02-21-2025 End: 02-21-2025 Patient encounter procedure Mariana Mccray MD Work Phone: [facility] Comment on above: Irregular menses; Menorrhagia with irregular cycle; Dysmenorrhea Start: 01-23-2025 End: 01-23-2025 Bamboo flowsheet Mariana Mccray MD Work Phone: [facility] Start: 01-23-2025 End: 01-23-2025 Bamboo flowsheet Mariana Mccray MD Work Phone: [facility] Start: 01-23-2025 End: 01-23-2025 Office outpatient visit 15 minutes Mariana Mccray MD Work Phone: [facility] Comment on above: Irregular menses; Menorrhagia with irregular cycle; Dysmenorrhea; IUD check up Start: 01-23-2025 End: 01-23-2025 ambulatory MARIANA MCCRAY Not Available Start: 01-21-2025 End: 01-21-2025 ambulatory Alfie Dixon MD Facility: [facility] Start: 01-10-2025 End: 01-10-2025 Office outpatient visit 10 minutes Mariana Mccray MD Work Phone: [facility] Comment on above: Abnormal vaginal ble eding; IUD check up; Irregular menses; Dysmenorrhea Start: 01-10-2025 End: 01-10-2025 ambulatory MARIANA MCCRAY Not Available Start: 12-05-2024 End: 12-05-2024 Emergency department patient visit [facility] Work Phone: [facility] Work Phone: Start: 12-03-2024 End: 12-03-2024 Patient encounter procedure Services Family [facility] Work Phone: [facility] Work Phone: Start: 12-03-2024 End: 12-03-2024 ambulatory [facility] Work Phone: [facility] Work Phone: Start: 10-15-2024 ambulatory Murtazaus [facility]ai [facility] Start: 10-08-2024 End: 10-08-2024 ambulatory Alfie Dixon MD Facility:[facility] Start: 09-07-2024 End: 09-07-2024 Patient encounter procedure Services [facility] Work Phone: [facility] [place] Work Phone: Start: 09-07-2024 End: 09-07-2024 ambulatory [facility] Work Phone: [facility] Work Phone: Start: 08-23-2024 End: 08-23-2024 Emergency department patient visit Services [facility] Work Phone: [facility] Work Phone: Start: 08-07-2024 End: 08-07-2024 Emergency department patient visit Services [facility] Work Phone: [facility] Work Phone: Start: 07-10-2024 End: 07-10-2024 Emergency department patient visit [facility] Work Phone: [facility] Work Phone: Start: 03-12-2024 End: 03-12-2024 ambulatory Alfie Dixon MD Facility: [facility] Start: 03-08-2024 End: 03-08-2024 ambulatory [facility] Work Phone: [facility] Work Phone: Start: 03-08-2024 End: 03-08-2024 Patient encounter procedure Services [facility] Work Phone: [facility] Start: 02-27-2024 End: 02-27-2024 ambulatory Alfie Dixon MD Facility: [facility] Start: 02-06-2024 End: 02-06-2024 ambulatory Alfie Dixon MD Facility: [facility] Start: 12-02-2023 End: 12-02-2023 ambulatory [facility] Work Phone: [facility] Work Phone: Start: 12-02-2023 End: 12-02-2023 Patient encounter procedure [facility] Work Phone: [facility] Work Phone: Start: 10-07-2023 End: 10-07-2023 ambulatory [facility] Work Phone: [facility] Work Phone: Start: 10-07-2023 End: 10-07-2023 Patient encounter procedure [facility] Work Phone: [facility] [place] Work Phone: Start: 08-09-2023 End: 08-09-2023 ambulatory [facility] Work Phone: [facility] Work Phone: Start: 08-09-2023 End: 08-09-2023 Patient encounter procedure Services [facility] Work Phone: [facility] Work Phone: Start: 07-13-2023 End: 07-13-2023 ambulatory [facility] Work Phone: [facility] Work Phone: Start: 07-13-2023 End: 07-13-2023 Patient encounter procedure Services [facility] Work Phone: [facility] [place] Work Phone: Start: 07-01-2023 End: 07-01-2023 Emergency department patient visit Services [employer] [facility] Work Phone: [facility] Work Phone: Start: 06-18-2023 End: 06-19-2023 Emergency department patient visit [facility] Work Phone: [facility] Work Phone: Start: 06-14-2023 End: 06-14-2023 ambulatory Jase Rosenberg Other [employer] Other Start: 06-14-2023 Office outpatient vi sit 15 minutes Jase Rosenberg [facility] Start: 06-14-2023 End: 06-14-2023 Patient encounter procedure [facility] Work Phone: [facility] [place] [facility] Start: 06-03-[address] Marcos Gregory Facility:[id number] Start: 05-30-2023 End: 05-31-2023 Emergency department patient visit [facility] Work Phone: [facility] Work Phone: Start: 05-12-2023 ambulatory NARENDRANATH LAKSHMIPATHY . Facility:[facility] Start: 04-18-2023 End: 04-18-2023 Emergency department patient visit [facility] Work Phone: [facility] Work Phone: Start: 02-10-2023 End: 02-11-[address] UZAIR LIGHT . Facility:[facility] Start: 01-19-2023 End: 01-19-2023 Emergency department patient visit [facility] Work Phone: [facility] Work Phone: Start: 01-08-2023 End: 01-08-2023 Emergency department patient visit [facility] Work Phone: [facility] Work Phone: Start: 01-04-2023 End: 01-04-2023 Emergency department patient visit Services [facility] Work Phone: [facility] Work Phone: Start: 11-16-2022 End: 11-17-2022 Emergency department patient visit Services [facility] Work Phone: [facility] Start: 11-04-2022 End: 11-05-[address] UZAIR LIGHT . Facility: Start: 10-12-2022 End: 10-12-2022 Patient encounter procedure Services Family [facility] Work Phone: [facility] [place] [facility] Start: 09-17-2022 End: 09-18-2022 Emergency department patient visit Services [facility] Work Phone: [facility] Start: 08-23-2022 End: 08-23-2022 Emergency department patient visit DO Raj Yehi Work Phone: [facility] Start: 08-18-2022 End: 08-18-2022 Patient encounter procedure DO Raj Loaiza Work Phone: [facility] [address] Start: 07-13-2022 End: 07-13-2022 ambulatory Jase Rosenberg Other [facility] Other Start: 07-13-2022 Office outpatient ne w 45 minutes Jase Rosenberg [facility] Start: 07-08-2022 End: 07-09-[address] UZAIR LIGHT . Facility:[facility] Start: 07-06-2022 End: 07-06-2022 Emergency department patient visit DO Raj Visci Work Phone: [facility] Start: 04-15-2022 End: 04-16-[address] UZAIR LIGHT . Facility:[facility] Start: 03-30-2022 End: 03-30-[address] UZAIR LIGHT . Facility:[facility] Start: 01-08-2020 End: 01-08-2020 Patient encounter procedure Raj Visci -Ultrasound [place] Start: 2019 End: 2019 Emergency department patient visit Raj Visci -Emergency Room Start: 09-17-2019 End: 09-17-2019 Emergency department patient visit Raj Visci -Emergency Room Start: 12-26-2018 End: 12-26-2018 Patient encounter procedure Raj Visci -XRay [address] Start: 02-02-2005 Evaluation and management of inpatient Raj Visci -3 [facility] Post Procedures Date Procedure Procedure Detail Performing Clinician Start: 04-10-2025 Antibody screen Teo polanco Comment on above: Result Comment: PERF ORMED BY: [facility] [address] [facility] [place] [address] PATHOLOGIST DRY CHAIN OFFBEARER GALI WISE M.D. Start: 04-10-2025 Ultrasonography of l eft breast Services [facility] Work Phone: Start: 04-08-2025 Streptococcus pyogen es antigen assay Services [facility] Work Phone: Start: 04-03-2025 Bacteria identified in Blood by Culture Services [facility] Work Phone: Start: 04-03-2025 Plain chest X-ray Servi rachel [facility] Work Phone: Start: 03-28-2025 X-ray of left foot Serv ices [facility] Work Phone: Start: 12-05-2024 Plain X-ray of left forearm [facility] Phone: Start: 12-05-2024 Plain X-ray of left hand [facility] Phone: Start: 12-03-2024 Screening mammograph y of bilateral breasts [facility] Phone: Start: 08-07-2024 X-ray of right foot Ser v[facility] Phone: Start: 07-10-2024 Computed tomography of abdomen and pelvis with contrast [facility] Phone: Start: 03-08-2024 Ultrasonography of b ilateral breasts [facility] Phone: Start: 12-02-2023 Screening mammograph y of bilateral breasts [facility] Phone: Start: 06-18-2023 CT of head without contrast [facility] Phone: Start: 06-18-2023 Plain X-ray of left shoulder [facility] Phone: Start: 06-14-2023 Plain X-ray of left wrist [facility] Phone: Start: 06-03-2023 Radionuclide myocard ial perfusion stress study [facility] Phone: Start: 05-31-2023 Plain chest X-ray Servi rachel [facility] Phone: Start: 04-18-2023 Plain X-ray of left wrist [facility] Phone: Start: 01-19-2023 Streptococcus pyogen es antigen assay [facility] Phone: Start: 01-08-2023 SARS-CoV-2, Influenz a & RSV (PCR) [facility] Phone: Start: 01-04-2023 Streptococcus pyogen es antigen assay [facility] Phone: Start: 11-17-2022 SARS-CoV-2, Influenz a & RSV (PCR) [facility] Phone: Start: 10-12-2022 X-ray of left ankle Ser vices [facility] Work Phone: Start: 08-18-2022 MRI of right [...] SARS-CoV-2, Influenz a & RSV (PCR) Services [facility] Work Phone: Plan of Treatment Date Care Activity Detail Author Start: 04-03-2025 Bacteria identified in Blood by Culture Blood Culture [facility] Start: 04-03-2025 End: 04-03-2025 [facility] Start: 04-03-2025 Plain chest X-ray XR chest 1V portab le [facility] Start: 04-03-2025 XR Chest Single view [facility] Start: 03-19-2025 End: 03-19-2025 Patient encounter procedure 03/19/2025 1:30 PM EDT Consult [facility] [address] [place] [address] Visci, Raj A, DO [address] [place] [address] [facility] Start: 02-21-2025 End: 02-21-2025 Patient encounter procedure 02/21/2025 3:45 PM EDT Procedure Visit [facility] [address] [place] [address] Mariana Mccray MD [address] [place] [address] [facility] Start: 01-23-2025 End: 01-23-2025 Patient encounter procedure [facility] Comment on above: Irregular menses; Menorrhagia with irregular cycle; Dysmenorrhea; IUD check up Start: 01-23-2025 End: 01-23-2025 Professional / ancillary services management 01/23/2025 8:00 AM EST Ancillary Procedure [facility] [address] [place] [address] [facility] Start: 07-10-2024 [facility] Start: 06-18-2023 CT of head without contrast CT head/brain wo con [facility] Start: 06-18-2023 CT Unspecified body region WO contrast [facility] Start: 06-18-2023 Plain X-ray of left shoulder XR shoulder LT min 2V* [facility] Start: 06-18-2023 XR Shoulder - left Views [facility] Start: 05-31-2023 [facility] Start: 05-31-2023 Plain chest X-ray XR chest 2V* [facility] Start: 05-31-2023 XR Chest 2 Views [facility] Cardiovascular stres s testing [facility] GENITAL MYCOPLASMAS AMBROSE, SWAB GENITAL MYCOPLASMAS AMBROSE, SWAB Pathology and Cytology Routine Irregular menses Menorrhagia with irregular cycle Dysmenorrhea Ordered: 02/21/2025 [facility] Comment on above: Ordered: 02/21/2025 NuSwab Vaginitis Plu s (VG+) NuSwab Vaginitis Plus (VG+) Microbiology Routine Irregular menses Menorrhagia with irregular cycle Dysmenorrhea Ordered: 02/21/2025 [facility] Comment on above: Ordered: 02/21/2025 Pathology Report Pathology Repor t Pathology and Cytology Routine Irregular menses Menorrhagia with irregular cycle Dysmenorrhea Ordered: 02/21/2025 [facility] Work Phone: Comment on above: Ordered: 02/21/2025 Patient Education [facility] Patient referral [facility] Immunizations Immunization Date Immunization Notes Care Provider Fa cility 12-10-2018 tetanus toxoid, redu nissa diphtheria toxoid, and acellular pertussis vaccine, adsorbed Raj Yehi [facility] Payers Date Payer Category Payer Self-pay [id number] 2023 Medicaid [id number] 2023 Medicare [id number] 2022 Medicaid [id number] 1978 Unknown [id number] 2.16.840.1.274868.3.579.2.5 93 1978 Unknown [id number] 2.16.840.1.678527.3.579.2.5 93 1978 Unknown [id number] 2.16.840.1.283653.3.579.2.5 93 1978 Unknown [id number] 2.16.840.1.442061.3.579.2.5 93 1978 Unknown [id number] 2.16.840.1.260801.3.579.2.5 93 1978 Unknown [id number] 2.16.840.1.184512.3.579.2.5 93 1978 Unknown [id number] 2.16.840.1.587353.3.579.2.3 56 1978 Unknown [id number] 2.16.840.1.920104.3.579.2.1 96 1978 Unknown [id number] 2.16.840.1.693151.3.579.2.1 96 1978 Unknown [id number] 2.16.840.1.495265.3.579.2.1 96 1978 Unknown [id number] 2.16.840.1.564355.3.579.2.1 96 1978 Unknown [id number] 2.16.840.1.888981.3.579.2.1 96 1978 Unknown [id number] 2.16.840.1.097662.3.579.2.1 96 1978 Unknown [id number] 2.16.840.1.161258.3.579.2.1 259 1978 Unknown [id number] 2.16.840.1.612136.3.579.2.1 259 1978 Unknown [id number] 2.16840.1.099967.3.579.2.1 259 1978 Unknown [id number] 2.16840.1.923917.3.579.2.1 259 1978 Unknown [id number] 2.16840.1.495194.3.579.2.1 259 1959 Medicare [id number] 1959 Unknown [id number] .840.1.642842.19 Private Health Insurance [id number] Unknown Self Pay [id number] Regular Auto/Liability [id number] 2.16840.1.722186.3.579.2.5 31 Unknown [id number] 2.16840.1.080865.3.579.2.5 31 Unknown [id number] 2.16840.1.057621.3.579.2.5 31 Unknown [id number] 2.16.840.1.239689.3.579.2.5 31 Unknown [id number] 2.16.840.1.491653.3.579.2.5 31 Unknown [id number] 2.16.840.1.507010.3.579.2.5 31 Unknown [id number] 2.16.840.1.129460.3.579.2.5 31 Unknown [id number] 2.16.840.1.958470.3.579.2.5 31 Unknown [id number] 2.16.840.1.048252.3.579.2.5 31 Unknown [id number] 2.16.840.1.417993.3.579.2.5 31 Social History Date Type Detail Facility Start: 2019 End: 03-28-2025 Tobacco smoking status IDIS Ex-smoker (finding) [facility] Start: 1980 Sex Assigned At Female [facility] Start: 01-10-2025 End: 02-21-2025 Sex Assigned At [employer] [facility] Other Start: 07-06-2022 End: 04-08-2025 Tobacco smoking status IDIS Never smoked tobacco (finding) [facility] Start: 12-04-2024 End: 04-11-2025 Sex Female (finding) [facility] Start: 07-13-2023 End: 02-21-2025 Tobacco use and [...] Cigarette Smoker [facility] NEGATED: Highlighted row [facility] Goals Date Patient Goal Desired Activity /State Clinical Notes 04-15-2022 to 04-10-2025 Raj Loaiza DO - 03/19/2025 1:30 PM Marisel Mccray MD - 02/27/2025 8:27 PM Mairsel Mccray MD - 02/21/2025 1:00 PM Marisel Mccray MD - 01/23/2025 8:45 AM EST Note Date & Type Note Facility 04-10-2025 Radiology Diagnostic study note [facility] [place] [address] Ultrasound Report Signed Patient: Loy Hastings MR#: [id number] : 1980 Acct:[id number] Age/Sex: 44 / F ADM Date: Loc: [place] Room: Type: [facility] Attending Dr: Sneha Joe MD Ordering Provider: [...] Jr., D.ORosey 04/10/2025 9:55 AM Dictation Location: [facility] Tech: Dana Paredes Transcribed By: ILIA 04/10/25954 Dictated By: Marquise Mendenhall Jr, DO 04/10/25 0940 Signed By: 04/10/25 0955 [facility] 03-19-2025 History of Present illness Narrative Images [...] Age of Onset Heart disease Mother Inge Aceveod Diabetes Mother Inge Acevedo Heart disease Father [...] Comments Pap 07/13/23- Neg Mammogram 12/03/24- Neg ([facility]) Kyleena IUD inserted 01/2020, bilateral salpingectomies Review [...] Assessment & Plan documented in this encounter [facility] 02-27-2025 History of Present illness Narrative Ureaplasma documented in this encounter [facility] 02-21-2025 History of Present illness Narrative Images [...] AMA (advanced maternal age) multigravida 35+ Asthma ([facility]/HCC) Deep vein thrombosis (DVT) ([facility]) Diabetes mellitus ([facility]) Fibromyalgia Heel spur Infertility, female [...] discussed and patient wishes hysterectomy Referral to [facility] ordered for preop consult Patient will call for bloating fever or excessive abdominal pain post EMB procedure She will find results of biopsy in My chart Cultures ordered for vaginal discharge documented in this encounter [facility] 01-23-2025 History of Present illness Narrative Images [...] for preop TLH documented in this encounter [facility] 01-10-2025 History of Present illness Narrative Images from the original note were not included. Mariana Mccray MD Obstetrics and Gynecology Patient: Loy Hastings : 1980 (44 y.o.) Exam Date: 01/10/2025 Reason for Visit - Chief Complaint Patient presents with Contraception Vaginal Bleeding Patient has questions concerning getting her IUD removed and possibly getting an ablation. She states [facility] has talked with her about different options [...] lives with her spouse and mentions her [id number] and . She has family support, including her [id number] and cousin. Cramping in her back. Visit [...] discussed after ultrasound documented in this encounter [facility] 07-10-2024 Hospital Discharge instructions Additional Instructions Take Phenergan as prescribed for nausea. Take Imodium as prescribed for loose stool. Increase your intake of fluids and rest. You can take Motrin or Tylenol as needed for your neck pain. follow-up with PCP for any persistent symptoms 5 to 7 days. [facility] Work Phone: 06-14-2023 Evaluation note Encounter [...] We also discussed a carpal tunnel release. [employer] Other 03-16-2023 NoteCONSULTATION CONSULTATION DATE: 02/10/2023 HISTORY: [...] in three months' time, unless otherwise indicated.[facility] [id number] Hospital Discharge instructions Additional Instructions Take the [...] fever difficulty breathing vomiting or any other concerns[facility] Work Phone: [phone] 176-581212-08-2022 NoteCONSULTATION CONSULTATION DATE: 11/04/2022 HISTORY OF PRESENT [...] 20-30 a week. Patient does work at [employer] and is on her foot a lot. [...] Patient agrees with the plan of care.[facility] [id number] Evaluation note* Encounter Date Diagnosis Assessment Notes [...] tolerated the injection well without adverse reaction. [employer] Other 08-11-2022 NoteCONSULTATION CONSULTATION DATE: 07/08/2022 HISTORY [...] pending appointment with Dr. Rosenberg, Orthopedic in [place] next week. 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 She is on her feet a lot and has recently experienced left lower extremity swelling. Overall, the patient felt that's some pressure has been released with this recent sympathetic block. Current medications include gabapentin 200 mg a.m., 200 mg noon and 400 mg at dusk, Percocet 5/325 t.i.d., Vistaril and a vitamin complex. The patient does continue to go to physical therapy at [facility] in [place]. Activities that aggravate her pain are standing, [...] of care and would like to proceed. [facility] Signed and Approved by: NICO GARCIAS . 04/19/2022 15:06:00[facility] noteNo assessment information availableProm[facility] Work Phone: Evaluation note* Diagnosis Abnormal vaginal bleeding Other specified noninflammatory disorder of vagina IUD check up Irregular menses Irregular menstrual cycle Dysmenorrhea documented in this encounter [facility] HealthcareEvaluation note* Diagnosis Irregular menses Irregular menstrual cycle Menorrhagia with irregular cycle Dysmenorrhea IUD check up documented in this encounter [facility] HealthcareEvaluation note* Diagnosis Irregular menses Irregular menstrual cycle Menorrhagia with irregular cycle Dysmenorrhea documented in this encounter [facility] HealthcareEvaluation note* Diagnosis Acute vaginitis- Primary Unspecified vaginitis and vulvovaginitis documented in this encounter [facility] HealthcareEvaluation note* Diagnosis Menorrhagia with irregular cycle Dysmenorrhea Intrauterine device surveillance Uterine prolapse Uterine prolapse without mention of vaginal wall prolapse documented in this encounter [facility] HealthcareHistory general Narrative - Reported* Type Description Date Medical History Rheumatoid arthritis Medical History carpal tunnel Medical History diabetes Medical History HTN Surgical History Bilateral feet surgery-heel spu rs Surgical History x 2 Surgical History gall bladder Surgical History tendon repair, nerve repair lef t lower extremity 2019 Surgical History left carpal tunnel release 2020 Hospitalization History see surgeries [employer] Other Hospital Discharge instructions Additional Instructions Tylenol every 4 hours as needed for pain Return if symptoms are worse Watch for signs of infection Follow-up with your nailbed salon and get the false nail removed tomorrow [facility] Work Phone: Hospital Discharge instructions Additional Instructions Follow-up with your primary care doctor Return to ED if develop worsening symptoms or concernProm[facility]ica [facility] Work Phone: Hospital Discharge instructions Additional Instructions I am not able to prescribe you any pain medication as you have a current prescription for Percocet.[facility] Work Phone: Hospital Discharge instructions Additional Instructions Return to emergency room for shortness of breath, if you feel you have throat swelling, increased pain or other concerns [facility] Work Phone: Hospital Discharge instructions Additional [...] pain medicine because you already have a prescription.[facility] Work Phone: Hospital Discharge instructions Additional Instructions Please return to emergency department for any new or worrisome symptoms including any fever, chest pain, shortness of breath, drooling, neck stiffness. Follow-up with your family physician within the next 3 to 5 days.[facility] Work Phone: Advance Directives No Advanced [...] Active Team Status: Inactive Member Role Status [facility] Family Health Primary Care Provider Active Praveen Pearl DO Emergency Provider Active Team Status: Inactive Member Role Status [facility] Family Health Primary Care Provider Active Jase Rosenberg MD Attending Provider Active Team Status: Inactive Member Role Status [facility] Family Health Primary Care Provider [...] Services Family Health Primary Care Provider Active Arnolod Pérez DO Emergency Provider Active Team Status: [...] Status: Inactive Member Role Status Dates Services [facility] Primary Care Provider Active Start: July 10, 2024 End: July 10, 2024 Jovan Hutson DO Emergency Provider Active Start: July 10, 2024 End: July 10, 2024 Team Status: Inactive Member Role Status Dates Services [facility] Primary Care Provider Active Start: August 07, 2024 End: August 07, 2024 Agustin Sandra APRN Emergency Provider Active Start: August 07, 2024 End: August 07, 2024 Team Status: Inactive Member Role Status Dates Services [facility] Primary Care Provider Active Start: August 23, 2024 End: August 23, 2024 Ning Saravia APRN Emergency Provider Active Start: August 23, 2024 End: August 23, 2024 Team Status: Inactive Member Role Status Dates Services [facility] Primary Care Provider Active Start: September 07, 2024 End: September 07, 2024 Teo Heath DO Attending Provider Active Start : September 07, 2024 End: September 07, 2024 oJhn Luu DO RES Referring Provider Active Start: September 07, 2024 End: September 07, 2024 Team Status: Inactive Member Role Status Dates [facility] Primary Care Prov ider, Referring Provider Active Start: December 03, 2024 End: December 03, 2024 Referral Self Attending Provider Active Start: J anuary 2024 End: December 03, 2024 Team Status: Inactive Member Role Status Dates Services [facility] Primary Care Provider Active Start: December 05, 2024 End: December 05, 2024 Elio Martinez DO Emergency Provider Active St art: December 05, 2024 End: December 05, 2024 Intelligence Clerk Relationship Specialty Start Date End Date Lars Lucas MD [address] [place] [id number] PCP - General 07/13/23 Intelligence Clerk Relationship Specialty Start Date End Date Lars Lucas MD [address] [place] [phone] PCP - General 07/13/23 Intelligence Clerk Relationship Specialty Start Date End Date Lars Lucas MD [address] [facility] [place] [address] PCP - General 07/13/23 Intelligence Clerk Relationship Specialty Start Date End Date Lars Lucas DO PCP - General 07/13/23 Team Status: Inactive Member Role Status Dates Services Family [facility] Primary Care Provider Active Start: March 28, 2025 End: March 28, 2025 Ivy White DO Emergency Provider Active Sta rt: March 28, 2025 End: March 28, 2025 Team Status: Inactive Member Role Status Dates Services Family [facility] Primary Care Provider Active Start: April 03, 2025 End: April 03, 2025 Jase Breaux Jr, MD Emergency Provider Active Start: April 03, 2025 End: April 03, 2025 Team Status: Inactive Member Role Status Dates Services [facility] Primary Care Provider Active Start: April 07, 2025 End: April 08, 2025 rTini Fields MD Emergency Provider Active Start: April 07, 2025 End: April 08, 2025 Team Status: Inactive Member Role Status Dates Services Family [facility] Primary Care Provider Active Start: April 10, [...] DATE CREATED AUTHOR 02/19/2023 [facility] DATE CREATED AUTHOR AUTHOR'S ORGANIZ ATION 06/04/2023 [facility] DATE CREATED AUTHOR AUTHOR'S ORGANIZ ATION 01/24/2025 [facility] DATE CREATED AUTHOR AUTHOR'S DEQUAN ATION 03/20/2025 [facility] DATE CREATED AUTHOR AUTHOR'S DEQUAN ATION 04/14/2025 [facility] FOR RECORDS PERTAINING TO [...] THE PRIMARY CLINICAL RECORDS. [employer] provides no warranty or guarantee of the accuracy or completeness of information in this document.
--- NOTE | 2025-04-17 10:56 | PM.CN ---
Consult Note: HPI Data of Consult Patient: known to practice within the last 3 years Consult Narrative Reason for consult: f/u Narrative: 43yof who presents for assessment. she notes persistence of significant left lower extremity pain as a consequence of her 33+ foot surgeries. states that she is trying to avoid any further surgeries, if at all possible. has been able to work, but still has significant left foot pain secondary to CRPS. failed tylenol and nsaids. utilizes percocet and gabapentin, which provides some relief. has undergone a variety of physical therapy sessions, with minimal lasting benefit. denies adverse med side effects. previous left lumbar sympathetic block x2 resulted in 0% improvement. continues to f/u with podiatry, no upcoming surgeries but did recently fx 2 toes in her left foot and is off work for the time being. Review of Systems ROS Status of ROS 10 or more systems reviewed and unremarkable except as noted in history and below [facility] Medical History History of blood transfusion ?Z92.89 - Personal history of other medical treatment (ICD-10) Syncope (2022) ?R55 - Syncope and collapse (ICD-10) Syncope anginosa ?I20.89 - Other forms of angina pectoris (ICD-10) Diabetes ?E11.9 - Type 2 diabetes mellitus without complications (ICD-10) Postoperative nausea and vomiting ?R11.2 - Nausea with vomiting, unspecified (ICD-10) ?Z98.890 - Other specified postprocedural states (ICD-10) Equinus contracture of ankle ?M24.573 - Contracture, unspecified ankle (ICD-10) Chronic osteomyelitis ?M86.60 - Other chronic osteomyelitis, unspecified site (ICD-10) Eczema ?L30.9 - Dermatitis, unspecified (ICD-10) Varicose vein of leg ?I83.90 - Asymptomatic varicose veins of unspecified lower extremity (ICD-10) Neuropathy ?G62.9 - Polyneuropathy, unspecified (ICD-10) Fibromyalgia ?M79.7 - Fibromyalgia (ICD-10) Calcaneal spur ?M77.30 - Calcaneal spur, unspecified foot (ICD-10) Arthritis ?M19.90 - Unspecified osteoarthritis, unspecified site (ICD-10) Pain of left lower extremity ?M79.605 - Pain in left leg (ICD-10) 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 ?G57.32 - Lesion of lateral popliteal nerve, left lower limb (ICD-10) DVT (deep venous thrombosis) (~2019) ?I82.409 - Acute embolism and thrombosis of unspecified deep veins of unspecified lower extremity (ICD-10) Compartment syndrome ?T79.A0XA - Compartment syndrome, unspecified, initial encounter (ICD-10) Plantar fasciitis ?M72.2 - Plantar fascial fibromatosis (ICD-10) Carpal tunnel syndrome ?G56.00 - Carpal tunnel syndrome, unspecified upper limb (ICD-10) Prediabetes ?R73.03 - Prediabetes (ICD-10) Achilles tendinitis ?M76.60 - Achilles tendinitis, unspecified leg (ICD-10) Complex regional pain syndrome of left lower extremity ?G90.522 - Complex regional pain syndrome I of left lower limb (ICD-10) Anxiety ?F41.9 - Anxiety disorder, unspecified (ICD-10) Osteoarthritis ?M19.90 - Unspecified osteoarthritis, unspecified site (ICD-10) Low back pain ?M54.50 - Low back pain, unspecified (ICD-10) Anemia ?D64.9 - Anemia, unspecified (ICD-10) Obesity ?E66.9 - Obesity, unspecified (ICD-10) Acid reflux ?K21.9 - Gastro-esophageal reflux disease without esophagitis (ICD-10) Asthma ?J45.909 - Unspecified asthma, uncomplicated (ICD-10) Hypertension ?I10 - Essential (primary) hypertension (ICD-10) Surgical History S/P epidural steroid injection ?Z92.241 - Personal history of systemic steroid therapy (ICD-10) History of cholecystectomy (1998) ?Z90.49 - Acquired absence of other specified parts of digestive tract (ICD-10) History of carpal tunnel release ?Z98.890 - Other specified postprocedural states (ICD-10) H/O tubal ligation (12/08/18) ?Z98.51 - Tubal ligation status (ICD-10) History of ankle surgery ?Z98.890 - Other specified postprocedural states (ICD-10) H/O foot surgery ?Z98.890 - Other specified postprocedural states (ICD-10) H/O carpal tunnel repair ?Z98.890 - Other specified postprocedural states (ICD-10) History of delivery ?Z98.891 - History of uterine scar from previous surgery (ICD-10) Family History Other Family history of diabetes mellitus Family history of myocardial infarction Family history of stroke Heart disease Lymphoma Social History Within the past year, how often did you have a drink containing alcohol: monthly or less Smoking status: Former smoker Non-prescribed substance use: denies use Previous occupational history: [employer] Highest level of school completed/degree received: high school graduate Meds Home Medications and Allergies Home Medications ?Medication ?Instructions ?Recorded ?Confirmed ?Type ascorbic acid (vitamin C) 500 mg 500 mg PO BID 05/06/23 10/04/24 History tablet aspirin 325 mg tablet 325 mg PO DAILY 05/06/23 10/08/24 History ferrous sulfate 325 mg (65 mg 325 mg PO DAILY 05/06/23 10/08/24 History iron) tablet hydroxyzine pamoate 25 mg capsule 25 mg PO TID 05/06/23 10/08/24 History lidocaine 5 % topical kit 1 applic topical DAILY 05/06/23 10/08/24 History promethazine 25 mg tablet 25 mg PO Q12H PRN nausea and 05/06/23 10/08/24 History vomiting pyridoxine (vitamin B6) 100 mg 100 mg PO BID 05/06/23 10/08/24 History tablet vitamin B complex (B 1 tab PO DAILY 05/06/23 10/08/24 History Complex-Vitamin B12 tablet) oxycodone-acetaminophen 5 mg-325 1 tab PO QID PRN pain #120 tabs 07/25/24 10/08/24 Rx mg tablet (Percocet) amlodipine 5 mg-olmesartan 20 mg 1 tab PO DAILY 10/04/24 10/08/24 History tablet dulaglutide 3 mg/0.5 mL 3 mg subcut QWEEK 10/04/24 10/08/24 History subcutaneous pen injector (Trulicity) meloxicam 15 mg tablet 15 mg PO DAILY 10/04/24 10/08/24 History omeprazole 20 mg capsule,delayed 20 mg PO DAILY 10/04/24 10/08/24 History release phentermine 37.5 mg tablet 37.5 mg PO DAILY 10/04/24 10/04/24 History tizanidine 4 mg capsule 4 mg PO BID 10/04/24 10/08/24 History oxycodone-acetaminophen 5 mg-325 1 tab PO QID PRN pain #120 tabs 10/15/24 Rx mg tablet (Percocet) naloxone 4 mg/actuation nasal 4 mg intranasal Q2M PRN opioid 10/17/24 Rx spray (Narcan) overdose #2 ea oxycodone-acetaminophen 5 mg-325 1 tab PO QID PRN pain #120 tabs 11/15/24 Rx mg tablet (Percocet) oxycodone-acetaminophen 5 mg-325 1 tab PO QID PRN pain #120 tabs 12/19/24 Rx mg tablet (Percocet) oxycodone-acetaminophen 5 mg-325 1 tab PO QID PRN pain #120 tabs 01/21/25 Rx mg tablet (Percocet) oxycodone-acetaminophen 5 mg-325 1 tab PO QID PRN pain #120 tabs 02/14/25 Rx mg tablet (Percocet) oxycodone-acetaminophen 5 mg-325 1 tab PO QID PRN pain #120 tabs 03/15/25 Rx mg tablet (Percocet) Allergies Allergy/AdvReac Type Severity Reaction Status Date / Time naproxen (From Naprosyn) Allergy Mild Hives Verified 10/08/24 11:04 scallops Allergy edema Verified 10/08/24 11:04 ondansetron (From Zofran) AdvReac Intermediate edema Verified 10/08/24 11:04 cyclobenzaprine (From AdvReac Mild Vomiting Verified 10/08/24 11:04 Flexeril) Exam Narrative Exam Narrative: Psych-alert and oriented x 3.? Attentive and appropriate, constitutionally normal, displays normal mood and affect per situation.? There are no obvious deficits in memory, reasoning, or intellect. Examination of the left lower extremity reveals notable hyperpathia and allodynia.? Notable atrophy and diffuse weakness present in the extremity.? There is notable shiny skin with hair loss and abnormal hair growth denoting trophic changes presently.? Asymmetric color and temperature changes are present which denotes sudomotor changes.? Decreased range of motion and strength is noted in the extremity.? Coordination remains intact.? Gait remains non-antalgic. Assessment and Plan Assessment and Plan (1) Complex regional pain syndrome type 1 affecting left lower leg: (2) Chronic prescription opiate use: Plan 44yof who presents for assessment. failed conservative measures, as noted. pending evaluation with NS for discussion of spinal cord stim implant, however per pt she did not find it beneficial. she is pending hysterectomy and her doctor is refusing to prescribe post op pain medication as she is under a pain management contract, we have discussed this with the pt and as long as the pt notifies us of planned surgical intervention with post op opioids we can instruct her to stop our medications while surgical team manages post-op pain, once she is cleared by her surgeon we will resume prior medication regimen. of note there was a recent hydrocodone-acetaminophen fill per [facility], she reports she did not take that medication or recieve it, reports her cousin picked up her medications from the pharmacy. start transdermal therapeutics cream 6a TID-QID for CRPS pain and left foot pain. continue current medication regimen at this time, risks vs benefits reviewed. f/u 3 months, sooner if needed
== END 2025-04-17 10:07 | disposition home or self-care (01) ==
PROVIDERS: Visit Provider Nurse Practitioner
DX: G90.522 Complex regional pain syndrome I of left lower limb (principal); Z79.891 Long term (current) use of opiate analgesic
CPT/HCPCS: G0463

== ENCOUNTER 2025-07-11 10:11 | Outpatient (OUT) | payer MEDICARE, MEDICAID, SELFPAY ==
--- OUTSIDE RECORDS SUMMARY | 2020-01-29 06:45 | XMS_ITS | Continuity of Care Document ---
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 Name Role Phone Lizz EMORYHetal Matute Unavailable Unavailabl e Allergies, Adverse Reactions, Alerts Substance Reaction Status Criticality scallops throat closure Active No Informatio n CYCLOBENZAPRINE HCL hives(severe)hives(severe) Active No Information ONDANSETRON HCL Facial Edema(severe) Active No I nformation naproxen Rash Active No Information Medications Medication Instructions Dosage Effective Dates (start - stop) Status Comments tramadol 50 mg tablet take 1 tablet by oral route every 6 hours as needed 50 MG - Active Xarelto 2.5 mg tablet take 1 tablet by oral route 2 times every day 2.5 MG - Active Lyrica 25 mg capsule take 1 capsule by oral route 3 times every day 25 MG - Active promethazine 25 mg tablet take 1 tablet by oral route every 4 - 6 hours as needed 25 MG - No Longer Active + DHA 28 mg iron-800 mcg-200 mg oral pack 1 PO QD - No Longer Active May substitute for one covered by insurance Procedures Procedure Date Intraoral-complete Series (bw) 20 Comp Oral Eval New/estab Patient 2019 Panoramic Film Nutrit Couns For Control Of [place] Dis Jan Oral Hygiene Instruction OFFICE/OUTPATIENT VISIT, EST OFFICE/OUTPATIENT VISIT, NEW URINALYSIS NONAUTO W/O SCOPE URINE TEST OFFICE/OUTPATIENT VISIT, [facility] URINALYSIS NONAUTO W/O SCOPE URINE TEST INSERT INTRAUTERINE DEVICE REMOVE INTRAUTERINE DEVICE SMEAR, WET MOUNT, SALINE/INK CHLAMYDIA & GC W/REFLEX TO ID (DNA PROBE , ENDOCERMURET) PREV VISIT, NEW, AGE 18-39 THIN PREP AND HPV URINE TEST Advance Directives Directive Yes / No Effective Date File Name No Information Encounters Encounter Description Practice Location Reason(s) For Visit Diagnoses Date Provider Providers Copied on Encounter [facility], [address] [place] [address], [id number], [place] tel:[phone] [facility] Encounter for screening for dental disorders 0 [place] DDGiovani Fong. [address] [place] [address], [id number] , [place]. tel:[phone] OFFICE/OUTPAT IENT VISIT, [facility], [address] [place] [address], [id number], [place] tel:[phone] [facility] Less than 8 weeks gestation of pregnancyEncounter for supervision of other normal , 1st trimester 8 [facility] Edith. [address] [place] [address], [id number] , [place]. tel:[phone] OFFICE/OUTPAT IENT VISIT, [facility], [address] [place] [address], [id number], [place] tel:[phone] [facility] test (chief complaint) Supervision of other normal 4 [facility] Edith. [address] [place] [address], [id number] , [place]. tel:[phone] [facility], [address] [place] [address], [id number], [place] tel:[phone] [facility] No Information 1 Paty Ma. [address], [place], [id number] . tel: [phone] PREV VISIT, NEW, AGE 18-39 [facility], [address] [place], [place], [id number], [place] tel:[phone] [facility] No Information 1 Nicole Contreras. [address] [place], [place], [id number] , [place]. tel: [phone] Family History Family Member Type Diagnosis Age At Onset No Information Payers Payer name Insurance type Covered republican ID Authoriza tion(s) D [place] [employer] [id number] [facility] [id number] Social History Type Description Quantity Date Captured Comments Alcohol Use Details Unknown Caffeine Use Details Unknown Tobacco Use Status Current non-smoker 20 Smoking Status Never smoker Non-Smoking Tobacco Use Details : No Details Available : No Details Available Sex Female Sexual Orientation Straight or heterosexual Gender Identity Female Vital Signs Date / Time: Height Weight BMI Pulse Rate Blood Pressure Temperature Respiratory Rate Body Surface Area Head Circumference Head Circ. Percentile Wt./Isaac. Percentile BMI percentile Pulse Ox Inhaled Ox 10:55 AM 89 /min 124/84 mm[Hg] Chief Complaint And Reason For Visit No Information Reason For Referral Reason For Referral No Information Plan Of Treatment Date Type Action Status Goal H&P. Due on due Goal RLP. Due on due Goal Tdap. Due on due Goal Influenza vaccine. Due on due Goal Depression screening. Due on due Goal REHABILITATION PROGRAM MANAGER exam. Due on due Goal Tdap. Due on due Goal RLP. Due on due Goal Influenza vaccine. Due on due Goal Depression screening. Due on due Goal H&P. Due on due Goal REHABILITATION PROGRAM MANAGER exam. Due on due Goal TD Vaccine. Due on 14 due Goal PAP. Due on due Goal H&P. Due on due Goal REHABILITATION PROGRAM MANAGER exam. Due on due History Of Present Illness Encounter Date Complaint History Of Prese nt Illness No Information Functional Status Date Functional Assessmen t No Information Instructions Date Instruction Additional Infor mation No Information Assessments Type Assessment Date assessment Encounter for screening for dent al disorders Patient Care Teams Name Effective Dates (start - stop) Status Members No Information
--- OUTSIDE RECORDS SUMMARY | 2024-06-12 10:00 | XMS_ITS ---
Author Organization The [facility] in [place] Address [address] [place] [address] Care Team Providers Care Organ Pipe Maker Metal Name Role Phone None, Unknown or Primary Care Provider UnavailAbner Jackman [phone] Allergies Allergen (clinical drug ingredient) Drug/Non Drug Allergy documented on EMR Reaction Allergy Type Onset Date Status Flexeril Unknown Drug Allergy Active Zofran Unknown Drug Allergy Active Shellfish (FN) Shellfish-derived Products Unknown Drug Allergy Active Results Component Value Reference Range Notes XR Ankle LT (3 views) * (164 ) Reviewed date:02/05/2025 08:47:13 AM Interpretation: Performing Lab: Notes/Report: XR Foot LT (3 views) * Reviewed date:02/05/2025 08:46:38 AM Interpretation: Performing Lab: Notes/Report: REASON FOR VISIT left ankle pain and swelling Medications Medication SIG (Take, Route, Frequency, Duration) Notes Start Date End Date Status Ozempic (0.25 or 0.5 MG/DOSE) 2 MG/3ML Subcutaneous for 28 Days Active Spironolactone 50 MG Oral for 90 Days Active tiZANidine HCl 4 MG Oral for 30 Days Active tiZANidine HCl 4 MG 1 tablet as needed O rally two times daily for 14 days 08/17/2023 Active oxyCODONE-Acetaminophen 5-325 MG TAKE 1 TABLET BY MOUTH THREE TIMES A DAY NEEDED Oral for 30 Days Active Meloxicam 15 MG 1 tablet Orally Once a day for 30 day(s) Active Omeprazole 20 MG Oral for 90 Days Active Diclofenac Potassium 50 MG Oral for 14 Days Active [facility]S Folic Acid 800 MCG TAKE 1 TABLET BY MOUTH EVERY DAY FOR 90 DAYS Oral for 90 Days Active Social History Tobacco Use: Social History Observation Description Date Details (start date - stop date) Never Smoker NA - NA Tobacco Use/Smoking Question Answer Notes Patient is a nonsmoker Vital Signs Heart Rate 84 /min 06/12/2024 Respiratory Rate 16 /min 06/12/2024 Oximetry 98 % 06/12/2024 Encounters Encounter Location Date Provider Diagnosis [facility] (PODIATRY) [address] [place] [address] [place] [address] 06/12/2024 Peter Radha Pain in left foot M79.672 ; Stress fracture, left foot, initial encounter for fracture M84.375A and Pain in left ankle and joints of left foot M25.572 Assessments Encounter Date Diagnosis (ICD Code) Assessment Notes Treatment Notes Treatment Clinical Notes Section Notes 06/12/2024 Pain in left foot (ICD-10 - M79.672) 06/12/2024 Stress fracture, left foot, initial encounter for fracture (ICD-10 - M84.375A) The patient is a pleasant 43-year-old female who presents for evaluation of new nontraumatic left forefoot pain that began about 2 weeks ago. The patient has history of left ankle fusion and is doing pretty well in that regard. She began experiencing pain in the left dorsal foot 2 weeks ago with no injury. History and physical examination are concerning for possible stress fracture of the fourth metatarsal neck. Initial x-rays are negative. The patient was advised that sometimes x-rays can initially show abnormal with a stress fracture. I recommend immobilization either with a cam boot or surgical shoe. Work restrictions provided. Continue Tylenol and RICE therapy. Follow-up in 2 to 3 weeks, sooner if any issues arise. I would like weightbearing foot x-rays at follow-up. 06/12/2024 Pain in left ankle and joints of left foot (ICD-10 - M25.572) Plan Of Treatment Treatment Notes Assessment Notes Stress fracture, left foot, initial encounter for fracture The patient is a pleasant 43-year-old female who presents for evaluation of new nontraumatic left forefoot pain that began about 2 weeks ago. The patient has history of left ankle fusion and is doing pretty well in that regard. She began experiencing pain in the left dorsal foot 2 weeks ago with no injury. History and physical examination are concerning for possible stress fracture of the fourth metatarsal neck. Initial x-rays are negative. The patient was advised that sometimes x-rays can initially show abnormal with a stress fracture. I recommend immobilization either with a cam boot or surgical shoe. Work restrictions provided. Continue Tylenol and RICE therapy. Follow-up in 2 to 3 weeks, sooner if any issues arise. I would like weightbearing foot x-rays at follow-up. Progress Notes * Azucena HASTINGSaDOB:[birth year] (43 yo F)Acc No.[id number]:06/12/2024 Follow Up Patient: Loy RIOS Provider: Tho Garcia DPM MS :1980 A ge:43 Y S ex:Female Date:06/12/2024 Address:[address] [place] [address] [id number] Pcp:Unknown or None Check In:01:55 PM ESTCheck O ut:02:39 PM EST Subjective: * Chief Complaints: * L eft ankle pain and swelling * HPI: G eneral: Pt here with complaint of left foot plantar and lateral 5 th MT pain and increased swelling to forefoot for past 10 days without injury. Pt called last week for extension of work restrictions, which was filled out and e-mailed to her, keeping her current restrictions of hours and days per week. Pt reports left ankle is doing ok, not any worse or better than last visit. She is unable to get into any close toed shoes due to swelling. * ROS: G eneral/Constitutional: Chills d enies. F ever d enies. W eight gain?denies. W eight loss d enies. S kin: Skin Ulcers d enies. S kin lesion(s) d enies. ? C ardiovascular: Difficulty breathing on exertion d enies. L eg cramps?denies. E simon d enies. C hest pain d enies. R espiratory: Difficulty breathing d enies. D yspnea d enies.?Cough d enies. G astrointestinal: Diarrhea d enies. N ausea d enies. V omiting?denies. M usculoskeletal: Bone/Joint Symptoms d enies. C rodney Pain d enies.?Leg cramps d enies. N eurologic: Numbness d enies. T ingling d enies . G ait abnormality d enies. ? H ematology: Anemia D enies. E asy bruising d enies. ? A ll Other Systems: Review of Systems (ROS) S ee HPI for details,All others negative except those mentioned in HPI. * Active Problem List M79.672 Pain in left foot Modified On:07/20/2023/U Status:confirmed M79.671 Pain in right foot Modified On:08/18/2023/U Status:confirmed M25.572 Pain in left ankle a nd joints of left foot Modified On:07/20/2023/U Status:confirmed S93.602A Unspecified sprain o f left foot, initial encounter Modified On:10/28/2023U Status:confirmed E11.42 Type 2 diabetes nely itus with diabetic polyneuropathy Modified On:11/23/2023U Status:confirmed M19.072 Primary osteoarthrit is, left ankle and foot Modified On:11/23/2023U Status:confirmed * Medical History: * Surgical History: l eft revision flexor hallucis longus tendon transfer, peroneal longus tendon transfer, excision of achilles tendon, 09/25/2020posterior ankle arthrotomy with radical excision of scar contracture, excision os trig. post ankle impingement left achilles detachment/reattachment, FHL tendon transfer, and calcaneal spur removal 09/25/2019cesarean delivery x2 bilateral heel spur surgery 2016,2017Multiple wound debridements and skin grafts by Dr Hendricks * Hospitalization/Major Diagno stic Procedure: N o Hospitalization History. * Family History: N on-Contributory. * Social History: T obacco Use: T obacco Use/Smoking P atient is a n onsmoker * Medications: T akingCVS Folic Acid(Folic Acid) 800 MCG Tablet TAKE 1 TABLET BY MOUTH EVERY DAY FOR 90 DAYS Oral Diclofenac Potassium 50 MG Tablet Oral Meloxicam 15 MG Tablet 1 tablet Orally Once a day Omeprazole 20 MG Capsule Delayed Release Oral oxyCODONE-Acetaminophen 5-325 MG Tablet TAKE 1 TABLET BY MOUTH THREE TIMES A DAY NEEDED Oral Ozempic (0.25 or 0.5 MG/DOSE)(Semaglutide(0.25 or 0.5MG/DOS)) 2 MG/3ML Solution Pen-injector Subcutaneous Spironolactone 50 MG Tablet Oral tiZANidine HCl 4 MG Tablet Oral tiZANidine HCl 4 MG Tablet 1 tablet as needed Orally two times daily Taking CVS Folic Acid(Folic Acid) 800 MCG Tablet TAKE 1 TABLET BY MOUTH EVERY DAY FOR 90 DAYS Oral Taking Diclofenac Potassium 50 MG Tablet Oral Taking Meloxicam 15 MG Tablet 1 tablet Orally Once a day Taking Omeprazole 20 MG Capsule Delayed Release Oral Taking oxyCODONE-Acetaminophen 5-325 MG Tablet TAKE 1 TABLET BY MOUTH THREE TIMES A DAY NEEDED Oral Taking Ozempic (0.25 or 0.5 MG/DOSE)(Semaglutide(0.25 or 0.5MG/DOS)) 2 MG/3ML Solution Pen-injector Subcutaneous Taking Spironolactone 50 MG Tablet Oral Taking tiZANidine HCl 4 MG Tablet Oral Taking tiZANidine HCl 4 MG Tablet 1 tablet as needed Orally two times daily DiscontinuedBaclofen 10 MG Tablet TAKE 1 TABLET BY MOUTH EVERY NIGHT AT BEDTIME Oral Gabapentin 100 MG Capsule Oral Medication List reviewed and reconciled with the patientDiscontinued Baclofen 10 MG Tablet TAKE 1 TABLET BY MOUTH EVERY NIGHT AT BEDTIME Oral Discontinued Gabapentin 100 MG Capsule Oral Medication List reviewed and reconciled with the patient * Allergies: Z ofranFlexerilShellfish-derived Productsno[Allergies Verified] Objective: * Vitals: H R:84/min, RR:16/min, Pain scale:41-10, Oxygen sat %:98%. * Examination: P odiatry Examination: SKIN: s kin intact, n o sign of infection. MUSCULOSKELETAL: N o ROM from the ankle or hindfoot Pain on palpation 4th and 5th metatarsal necks Pain with PROM of the 4th and 5th toes No bruising. Mild swelling of the ankle consistent with baseline. NEUROLOGICAL: L ight touch sensation is grossly i ntact in all nerve distributions, Negative Tinel sign. VASCULAR: P alpable pedal pulses, No calf pain on squeeze, brisk cap refill. X -ray 3 view ankle obtained in the office today and reviewed: Hardware stable without evidence of loosening or failure. Fusion of the tibiotalar and subtalar joints with satisfactory alignment. X-ray 3 view foot obtained in the office today and reviewed: No evidence of acute trauma or stress fracture. Assessment: * Assessment: 1. S tress fracture, left foot, initial encounter for fracture - M84.375A (Primary) 2 .?Pain in left foot - M79.672 3 . P ain in left ankle and joints of left foot - M25.572 Plan: * Treatment: 2. P ain in left foot I maging: XR Foot LT (3 views) * 3. P ain in left ankle and joints of left foot I maging: XR Ankle LT (3 views) * (164) * Procedure Codes: * * Sign off status: Completed Visit Status: C HK (Check Out) true * Provider: Tho Garcia DPM, MS Date: 0 06/12/2024 Generated for Baljit tian/Mercedes/Siobhansmitting on: 0 07/11/2025 10:14 AM EDT History and Physical Notes * HPI (History of Present Illness) Category Sub-Category Detail Notes Category Not es General Pt here with co mplaint of left foot plantar and lateral 5th MT pain and increased swelling to forefoot for past 10 days without injury. Pt called last week for extension of work restrictions, which was filled out and e-mailed to her, keeping her current restrictions of hours and days per week. Pt reports left ankle is doing ok, not any worse or better than last visit. She is unable to get into any close toed shoes due to swelling. Examination Category Sub-Category Detail Notes Category Not es Podiatry Examination SKIN: skin intact, no sign of infection X-ray 3 view ankle obtained in the office today and reviewed: Hardware stable without evidence of loosening or failure. Fusion of the tibiotalar and subtalar joints with satisfactory alignment. X-ray 3 view foot obtained in the office today and reviewed: No evidence of acute trauma or stress fracture MUSCULOSKELETAL: No ROM from the ankl e or hindfoot Pain on palpation 4th and 5th metatarsal necks Pain with PROM of the 4th and 5th toes No bruising. Mild swelling of the ankle consistent with baseline NEUROLOGICAL: Light touch sensatio n is grossly intact in all nerve distributions, Negative Tinel sign VASCULAR: Palpable pedal pulse s, No calf pain on squeeze, brisk cap refill
--- OUTSIDE RECORDS SUMMARY | 2024-06-26 09:45 | XMS_ITS ---
Author Organization The [facility] in [place] Address [address] [place] [address] Care Team Providers Care Solderer Furnace Name Role Phone None, Unknown or Primary Care Provider UnavailAbner Jackman [phone] Allergies Allergen (clinical drug ingredient) Drug/Non Drug Allergy documented on EMR Reaction Allergy Type Onset Date Status Flexeril Unknown Drug Allergy Active Zofran Unknown Drug Allergy Active Shellfish (FN) Shellfish-derived Products Unknown Drug Allergy Active REASON FOR VISIT 2 week f/u Medications Medication SIG (Take, Route, Frequency, Duration) Notes Start Date End Date Status Spironolactone 50 MG Oral for 90 Days Active tiZANidine HCl 4 MG Oral for 30 Days Active Ozempic (0.25 or 0.5 MG/DOSE) 2 MG/3ML Subcutaneous for 28 Days Active oxyCODONE-Acetaminophen 5-325 MG TAKE 1 TABLET BY MOUTH THREE TIMES A DAY NEEDED Oral for 30 Days Active CVS Folic Acid 800 MCG TAKE 1 TABLET BY MOUTH EVERY DAY FOR 90 DAYS Oral for 90 Days Active Diclofenac Potassium 50 MG Oral for 14 Days Active Meloxicam 15 MG 1 tablet Orally Once a day for 30 day(s) Active Omeprazole 20 MG Oral for 90 Days Active Social History Tobacco Use: Social History Observation Description Date Details (start date - stop date) Never Smoker NA - NA Tobacco Use/Smoking Question Answer Notes Patient is a nonsmoker Vital Signs Temperature 97.9 degrees Fahrenheit 06/26/20 24 Heart Rate 88 /min 06/26/2024 Respiratory Rate 16 /min 06/26/2024 Oximetry 97 % 06/26/2024 Encounters Encounter Location Date Provider Diagnosis [facility] (PODIATRY) [address] [place] [address] [place] [address] 06/26/2024 Abner Garcia Pain in left foot M79.672 ; Stress fracture, left foot, initial encounter for fracture M84.375A and Contusion of left foot, initial encounter S90.32XA Assessments Encounter Date Diagnosis (ICD Code) Assessment Notes Treatment Notes Treatment Clinical Notes Section Notes 06/26/2024 Pain in left foot (ICD-10 - M79.672) 06/26/2024 Stress fracture, left foot, initial encounter for fracture (ICD-10 - M84.375A) Patient has had pain in her left fourth and fifth metatarsals for 4 to 5 weeks now and x-rays obtained today as well as 2 to 3 weeks ago negative for stress fracture. Given the high index of suspicion I recommended an MRI which was ordered today. She relates that she is going to attempt to return back to work with some limited restrictions but if she is unable to tolerate the pain she will call the office and we will write her off for 4 weeks. She continues to follow-up with pain management and is considering spinal cord stimulator. I recommended that she had the MRI prior to obtaining spinal cord stimulator. She will follow-up after the MRI is obtained no new x-rays are needed at that time 06/26/2024 Contusion of left foot, initial encounter (ICD-10 - S90.32XA) Plan Of Treatment Treatment Notes Assessment Notes Stress fracture, left foot, initial encounter for fracture Patient has had pain in her left fourth and fifth metatarsals for 4 to 5 weeks now and x-rays obtained today as well as 2 to 3 weeks ago negative for stress fracture. Given the high index of suspicion I recommended an MRI which was ordered today. She relates that she is going to attempt to return back to work with some limited restrictions but if she is unable to tolerate the pain she will call the office and we will write her off for 4 weeks. She continues to follow-up with pain management and is considering spinal cord stimulator. I recommended that she had the MRI prior to obtaining spinal cord stimulator. She will follow-up after the MRI is obtained no new x-rays are needed at that time Pending Test Test Name Order Date XR Foot LT (3 views) * 06/26/2024 MRI Foot LT w/o contrast (Fore Foot) Progress Notes * Azucena HASTINGSaDOB:[birth year] (43 yo F)Acc No.[id number]:06/26/2024 Follow Up Patient: Loy RIOS Provider: Tho Garcia DPM, MS :1980 A ge:43 Y S ex:Female Date:06/26/2024 Address:[address] [place], [place] [address], [id number] Pcp:Unknown or None Check In:01:41 PM ESTCheck O ut:02:14 PM EST Subjective: * Chief Complaints: * 2 week f/u * HPI: G eneral: Patient returns to office for follow up of left foot plantar and lateral 5 th MT pain without known injury. She is still in pain, symptoms have not changed. She states she is having swelling. She reports pain management is talking to her about a nerve stimulator in her back. She wants to discuss with Dr. Garcia and is not sure what she wants to do. * ROS: G eneral/Constitutional: Chills d enies. [...] M usculoskeletal: Bone/Joint Symptoms d enies. C long-term Pain d enies.?Leg cramps d enies. N [...] a nd joints of left foot Modified On:07/20/2023U Status:confirmed S93.602A Unspecified sprain o f left foot, initial encounter Modified On:10/28/2023U Status:confirmed E11.42 Type 2 diabetes nely itus with diabetic polyneuropathy Modified On:11/23/2023/U Status:confirmed M19.072 Primary osteoarthrit is, left ankle and foot Modified On:11/23/2023 Status:confirmed * Medical History: * Surgical History: [...] Dr Hendricks * Hospitalization/Major Diagno stic Procedure: * Family History: N o Family History documented.. * Social History: T obacco Use: T [...] Oral tiZANidine HCl 4 MG Tablet Oral Taking CVS Folic Acid(Folic Acid) 800 MCG [...] Taking tiZANidine HCl 4 MG Tablet Oral DiscontinuedtiZANidine HCl 4 MG Tablet 1 tablet as needed Orally two times daily Medication List reviewed and reconciled with the patientDiscontinued tiZANidine HCl 4 MG Tablet 1 tablet as needed Orally two times daily Medication List reviewed and reconciled with the patient * Allergies: Z ofranFlexerilShellfish-derived Productsno[Allergies Verified] Objective: * Vitals: T emp:97.9F, HR:88/min, RR:16/min, Pain scale:41-10, Oxygen sat %:97%. * Examination: P odiatry Examination: SKIN: s kin intact, n o sign of infection. MUSCULOSKELETAL: P OP over the distal fourth and fifth metatarsals with the fifth being most painful especially plantarly. There is also pain on palpation to the dorsal aspect of the first MPJ. Max dorsiflexion of the first MPJ is also painful.. NEUROLOGICAL: l ight touch sensation intact, n egative tinel's sign. VASCULAR: P edal pulses palpable, C apillaryrefill is brisk to toe, mild forefoot swelling. X -rays: x-rays were obtained & reviewed in my office. There is no evidence of stress fracture or acute cortical fracture. There is arthritic sesamoids noted subfirst metatarsal head and accessory sesamoids subfifth metatarsal head. Assessment: * Assessment: 1. S tress fracture, left foot, initial encounter for fracture - M84.375A (Primary) 2 .?Pain in left foot - M79.672 3 . C ontusion of left foot, initial encounter - S90.32XA Plan: * Treatment: 2. P ain in left foot I maging: XR Foot LT (3 views) * * Procedure Codes: * * Sign off status: Completed Visit Status: C HK (Check Out) true * Provider: P eter Highlander, DPQuyen, MS Date: 0 06/26/2024 Generated for Baljit tian/Mercedes/Kingsitting on: 0 07/11/2025 10:15 AM EDT History and Physical Notes * HPI (History of Present Illness) Category Sub-Category Detail Notes Category Not es General Patient returns to office for follow up of left foot plantar and lateral 5th MT pain without known injury. She is still in pain, symptoms have not changed. She states she is having swelling. She reports pain management is talking to her about a nerve stimulator in her back. She wants to discuss with Dr. Garcia and is not sure what she wants to do. Examination Category Sub-Category Detail Notes Category Not es Podiatry Examination SKIN: skin intact, no sign of infection X-rays: x-rays were obtained & reviewed in my office. There is no evidence of stress fracture or acute cortical fracture. There is arthritic sesamoids noted subfirst metatarsal head and accessory sesamoids subfifth metatarsal head MUSCULOSKELETAL: POP over the distal fourth and fifth metatarsals with the fifth being most painful especially plantarly. There is also pain on palpation to the dorsal aspect of the first MPJ. Max dorsiflexion of the first MPJ is also painful. NEUROLOGICAL: light touch sensatio n intact, negative tinel's sign VASCULAR: Pedal pulses palpable, Capillary refill is brisk to toe, mild forefoot swelling
--- OUTSIDE RECORDS SUMMARY | 2025-07-05 09:30 | XMS_ITS ---
Author Organization [facility] es Address [address] [place] [address] Care Team Providers Care Biomedical Photographer Name Role Phone John Luu Primary Care Provider Allergies Allergen (clinical drug ingredient) Drug/Non Drug Allergy documented on EMR Reaction Allergy Type Onset Date Status Shellfish (FN) scallops (uncoded) hives Allergy Active Flexeril vomiting Drug Allergy Active naproxen Naproxen vomiting Drug Allergy Active Zofran sick Drug Allergy Active Reason For Referral Reason *FAXED 07/09 Pt rep orts history of rheumatoid arthritis and joint pains. Diagnosis 1 Rheumatoid arthritis involving both hands, unspecified whether rheumatoid factor present (M06.9) Referral Organization [facility] Referring Provider First Name John Referring Provider Last Name Jus Referring Provider Speciality [facility] Referred Provider Specialty Rheumatology General Notes Rosetta Kapadia 2024 09:22:46 AM >[facility] (Dr. Unger) [phone] Referral Priority Routine REASON FOR VISIT 1 month f/u. LESIA Medications Medication SIG (Take, Route, Frequency, Duration) Notes Start Date End Date Status DULoxetine HCl 20 MG TAKE 1 CAPSULE BY MOUTH EVERY DAY FOR 30 DAYS; Duration: 90 Active Valsartan-hydroCH LOROthiazide 160-25 MG TAKE 1 TABLET BY MOUTH EVERY DAY; Duration: 90 Active Omeprazole 20 MG 1 capsule 30 minutes before morning meal Orally Once a day; Duration: 90 days Active Lancet Devices - as directed; Duration: 30 days 04/16/2024 Active Blood Glucose Test - as directed In Vitro check blood sugar once a day; Duration: 30 days whatever brand is covered by insurance 03/19/2024 Active oxyCODONE-Acetami nophen 5-325 MG 1 tablet as needed Orally every 6 hrs Active Blood Glucose Test - as directed In Vitro once a day; Duration: 90 days *WHICHEVER BRAND IS COVERED BY INSURANCE* 09/29/2023 Active Lidocaine 5 % 1 application as needed Externally Three times a day; Duration: 90 days please provide patient with the concentration that will be covered by her insurance Active Pen [place] 33G X 4 MM as directed subcutaneous once a day; Duration: 30 days please provide for victoza whatever is preferred by insurance please 07/14/2020 Active Alcohol Prep Pads 70 % as directed check blood sugar once a day whatever brand is covered by insurance 03/19/2024 Active Ferrous Sulfate 324 MG 3 tablet Orally every other day; Duration: 30 day(s) 07/14/2020 Active FreeStyle Nubia 3 Sensor - as directed; Duration: 140 days 06/04/2025 Active Adipex-P 37.5 MG 1 tablet before breakfast Orally Once a day; Duration: 30 days 07/05/2025 09/03/2025 Active Trulicity 4.5 MG/0.5ML as directed Subcutaneous once a week; Duration: 90 days 12/24/2024 01/01/2026 Active Social History Tobacco Use: Social History Observation Description Date Details (start date - stop date) Never Smoker NA - NA Sex Assigned At : Social History Observation Description Sex Assigned At Female AUDIT-C (Standard) Question Answer Notes Did you have a drink containing alcohol in the p ast year? No Points 0 Interpretation Negative Tobacco Control (Standard) Question Answer Notes Tobacco use: Nonsmoker Problems Problem Type SNOMED Code ICD Code Onset Dates Problem Status W/U Status Risk Notes Problem Rheumatoid arthritis (78061684) Rheumatoid arthritis involving both hands, unspecified whether rheumatoid factor present (M06.9) Active confirmed Vital Signs Height 67.5 in 07/05/2025 Weight 250.6 lbs 07/05/2025 BMI 38.67 kg/m2 07/05/2025 Temperature 97.9 degrees Fahrenheit 07/05/20 25 Blood pressure systolic 123 mm Hg 07/05/20 25 Blood pressure diastolic 78 mm Hg 025 Oximetry 100 % 07/05/2025 Heart Rate 82 /min 07/05/2025 Respiratory Rate 18 /min 07/05/2025 Encounters Encounter Location Date Provider Diagnosis [facility] [address] [place] [address] 07/05/2025 John Luu Other obesity due to excess calories E66.09 ; Body mass index [BMI] 38.0-38.9, adult Z68.38 ; Obesity, class 2 E66.812 ; Rheumatoid arthritis involving both hands, unspecified whether rheumatoid factor present M06.9 and Obesity E66.9 Assessments Encounter Date Diagnosis (ICD Code) Assessment Notes Treatment Notes Treatment Clinical Notes Section Notes 07/05/2025 Other obesity due to excess calories (ICD-10 - E66.09) Patient successfully lost some weight over the past month on Adipex. I will refill at this time. Patient needs refill on Trulicity as well at this time. I instructed patient to continue diet and exercise and to keep up the great work with her weight loss. Patient voices understanding and agrees to this. Referral to rheumatology is placed at this time for rheumatoid arthritis diagnosis. I have also asked the patient to sign a medical release form so that we can get the lab analysis report from her car oiler that found that she had rheumatoid arthritis. Patient filled this form out. Follow-up in 3 months for weight check and Adipex reconciliation. 07/05/2025 Body mass index [BMI] 38.0-38.9, adult (ICD-10 - Z68.38) 07/05/2025 Obesity, class 2 (ICD-10 - E66.812) 07/05/2025 Rheumatoid arthritis involving both hands, unspecified whether rheumatoid factor present (ICD-10 - M06.9) 07/05/2025 Obesity (ICD-10 - E66.9) 07/05/2025 Other Body Mass Index : Care Instructions material was published Plan Of Treatment Medication Medication Name Sig Start Date Stop Date Notes Adipex-P 37.5 MG 1 tablet before sara kfast Orally Once a day; Duration: 30 days 07/05/2025 09/03/2025 Trulicity 4.5 MG/0.5ML as directed Subcu taneous once a week; Duration: 90 days 12/24/2024 01/01/2026 Treatment Notes Assessment Notes Other obesity due to excess calories Pat ient successfully lost some weight over the past month on Adipex. I will refill at this time. Patient needs refill on Trulicity as well at this time. I instructed patient to continue diet and exercise and to keep up the great work with her weight loss. Patient voices understanding and agrees to this. Referral to rheumatology is placed at this time for rheumatoid arthritis diagnosis. I have also asked the patient to sign a medical release form so that we can get the lab analysis report from her car oiler that found that she had rheumatoid arthritis. Patient filled this form out. Follow-up in 3 months for weight check and Adipex reconciliation. Other Body Mass Index: Car e Instructions material was published Referrals Referral Date Details 07/05/2025 07/05/2025, *FAXED Pt reports history of rheumatoid arthritis and joint pains. Next Appt Details Follow Up: 3 Months,[Case re viewed with resident physician. Collado physical findings as per chart. I agree with the diagnoses and plan of care], Reason: Weight Provider Name:Cedrick Rice , 08/20/2025 09:00:00 AM, [address] [facility], [address], [place], [address], Provider Name:Marquise Benjamin, 1 12/01/2024 09:55:00 AM, [address], [place], [address], Provider Name:Marquise Benjamin, 1 12/07/2024 09:00:00 AM, [address], [place], [address], Provider Name:Marquise Benjamin, 1 12/15/2024 09:20:00 AM, [address], [place], [address], Provider Name:John leigh, 10/17/2025 10:45:00 AM, [address], [place], [address], Progress Notes * PEREZ BABB NDOB:1980 (44 yo F)Acc No.[id number]:07/05/2025 Progress Notes Patient: PEREZ RIOS Appointment Provider: Giovani Luu DO :1980 A ge:44 Y S ex:Female Supervising Provider:Lin Kirkpatrick DO Date:07/05/2025 Address:[address] [place], [place] [address], [id number] Subjective: * Chief Complaints: * 1 month f/u. LESIA * HPI: D epression Screening: PHQ-2 (2015 Edition) L ittle interest or pleasure in doing things??Not at all F eeling down, depressed, or hopeless? N ot at all T otal Score 0 Ms. Babb is a 44-year-old female who presents to clinic today for 1 month follow-up concerning her weight and Adipex. Patient has lost approximately 2 pounds in the past month. She notes that she has increased her exercise regiment with her granddaughter. She is also continuing to watch what she eats as far as carbohydrate intake and does follow-up with food is medicine program. Patient notes that she seems to do very well with Adipex and Trulicity. She denies any side effects from medications today. Lastly, patient notes that she was diagnosed with rheumatoid arthritis from blood work she had done by podiatry.? She is complaining of some bilateral metacarpal phalangeal joint pains today along with left shoulder pains that are arthritic in nature. She would like to know what she needs to do next for this condition. All questions and concerns were addressed with the patient. * ROS: P er HPI. * Medical History: * Surgical History: g all bladder removed 1998right achilles repair 12/2016Left achilles repair 02/2018LEFT HEEL/ANKLE 08/2020LEFT CARPAL TUNNEL KIN GRAFT kin Graft 11/2022hysterectomy- ovaries remain 05/09/2025 * Hospitalization/Major Diagno stic Procedure: G all bladder 1999Child births 2000,2004 & 2015LT Sprained Ankle 2020SUrgeries 11/2022 * Family History: Usman mata(s): alive. S on(s): alive. F ather: , htn, dm, heart disease, family history unknown . M other: , htn, dm, heart disease, family history unknown . S iblings: brother-dm. 7 brother(s) , 6 sister(s) - healthy. 3 son(s) , 1 daughter(s) - healthy. .? Brother- CVA,DM. * Social History: G eneral: T ransition of Care E R/UC/hospital since last office visit? N o S pecialist seen since last office visit? N o Behaviors affecting health P oor/Risky Behaviors: D enies- Substance abuse/mental health issues of patient/family P atient - D enies Social/Support Concerns P atient: N o Ability to understand healthcare/treatment P atient: G ood Communication Barrier L anguage Barrier?: N o D rug/Alcohol: A TRACY-C (Standard) D id you have a drink containing alcohol in the past year? N o P oints 0 I nterpretation N egative T obacco Use: T obacco Control (Standard) T obacco use: N onsmoker * Medications: T akingFerrous Sulfate 324 MG Tablet Delayed Release 3 tablet Orally every other day oxyCODONE-Acetaminophen 5-325 MG Tablet 1 tablet as needed Orally every 6 hrs Pen [place] 33G X 4 MM Miscellaneous as directed subcutaneous once a day , Notes to Pharmacist: please provide for victoza whatever is preferred by insurance pleaseLidocaine 5 % Cream 1 application as needed Externally Three times a day , Notes to Pharmacist: please provide patient with the concentration that will be covered by her [employer] Glucose Test - Strip as directed In Vitro once a day , Notes to Pharmacist: *WHICHEVER BRAND IS COVERED BY INSURANCE*Alcohol Prep Pads 70 % Pad as directed check blood sugar once a day whatever brand is covered by insuranceBlood Glucose Test - Strip as directed In Vitro check blood sugar once a day whatever brand is covered by insuranceLancet Devices - Miscellaneous as directed Omeprazole 20 MG Capsule Delayed Release 1 capsule 30 minutes before morning meal Orally Once a day Valsartan-hydroCHLOROthiazide 160-25 MG Tablet TAKE 1 TABLET BY MOUTH EVERY DAY DULoxetine HCl 20 MG Capsule Delayed Release Particles TAKE 1 CAPSULE BY MOUTH EVERY DAY FOR 30 DAYS Adipex-P 37.5 MG Tablet 1 tablet before breakfast Orally Once a day , stop date 08/03/2025Trulicity 4.5 MG/0.5ML Solution Auto- injector as directed Subcutaneous once a week , stop date 12/01/2025FreeStyle Nubia 3 Sensor - Miscellaneous as directed Medication List reviewed and reconciled with the patientTaking Ferrous Sulfate 324 MG Tablet Delayed Release 3 tablet Orally every other day Taking oxyCODONE-Acetaminophen 5-325 MG Tablet 1 tablet as needed Orally every 6 hrs Taking Pen [place] 33G X 4 MM Miscellaneous as directed subcutaneous once a day , Notes to Pharmacist: please provide for victoza whatever is preferred by insurance pleaseTaking Lidocaine 5 % Cream 1 application as needed Externally Three times a day , Notes to Pharmacist: please provide patient with the concentration that will be covered by her insuranceTaking Blood Glucose Test - Strip as directed In Vitro once a day , Notes to Pharmacist: *WHICHEVER BRAND IS COVERED BY INSURANCE*Taking Alcohol Prep Pads 70 % Pad as directed check blood sugar once a day whatever brand is covered by insuranceTaking Blood Glucose Test - Strip as directed In Vitro check blood sugar once a day whatever brand is covered by insuranceTaking Lancet Devices - Miscellaneous as directed Taking Omeprazole 20 MG Capsule Delayed Release 1 capsule 30 minutes before morning meal Orally Once a day Taking Valsartan-hydroCHLOROthiazide 160-25 MG Tablet TAKE 1 TABLET BY MOUTH EVERY DAY Taking DULoxetine HCl 20 MG Capsule Delayed Release Particles TAKE 1 CAPSULE BY MOUTH EVERY DAY FOR 30 DAYS Taking Adipex-P 37.5 MG Tablet 1 tablet before breakfast Orally Once a day , stop date 08/03/2025Taking Trulicity 4.5 MG/0.5ML Solution Auto- injector as directed Subcutaneous once a week , stop date 12/01/2025Taking FreeStyle Nubia 3 Sensor - Miscellaneous as directed Medication List reviewed and reconciled with the patient * Allergies: N aproxen: vomiting - ContraindicationFlexeril: vomiting - ContraindicationZofran: sick - Contraindicationscallops: hives - Allergyno[Allergies Verified] Objective: * Vitals: H t: 67.5 in, Wt: 250.6 lbs, BMI:38.67Index, Temp: 97.9 F, BP: 123/78 mm Hg, SaO2:100%, HR: 82 /min, RR: 18 /min. * Examination: G eneral Examination: G eneral: AOx4, no acute distress, ABCD HEENT: head atraumatic, normocephalic, moist mucous membranes Neck: supple no masses, no lymphadenopathy CVS: regular rate and rhythm, no murmurs or gallops Respiratory: clear to auscultation bilaterally, no wheezing or crackles, symmetric expansion GI: soft, nondistended, nontender, positive bowel sounds with no organomegaly Extremity: moves all extremities, no restrictions of movements, no calf tenderness, no edema Neuro: Moves all extremities in all planes of motion. Skin: dry, intact no rashes or lesions Psych: Cooperative, congruent mood, bright affect. Assessment: * Assessment: 1. O ther obesity due to excess calories - E66.09 (Primary) 2 . B velia mass index [BMI] 38.0-38.9, adult - Z68.38 3 . O besity, class 2 - E66.812 4 . R heumatoid arthritis involving both hands, unspecified whether rheumatoid factor present - M06.9 5 . O besity - E66.9 Plan: * Treatment: 2. R heumatoid arthritis involving both hands, unspecified whether rheumatoid factor present Referral To:Rheumatology Reason:Pt reports history of rheumatoid arthritis and joint pains. 3. O besity Refill Trulicity Solution Auto-injector, 4.5 MG/0.5ML, as directed, Subcutaneous, once a week, 90 days, 12 Pen Needle, Refills 1; R efill Adipex-P Tablet, 37.5 MG, 1 tablet before breakfast, Orally, Once a day, 30 days, 30 Tablet, Refills 1. 4. O thers Notes: Body Mass Index: Care Instructions material was published * Procedure Codes: 3 078F DIAST BP < 80 MM [id number] SYST BP LT 130 MM [id number] RVW MEDS BY RX/ IN [id number] [facility] PPS EST PT * Preventive Medicine: COUNSELING: C ommunication to patient: Counseling for Nutrition Provided Y es Counseling for Physical Activity Provided Y es BMI management provided Y es Nutrition/Dietary Counseling provided?Yes * Follow Up: 3 Months,[Case reviewed with resident physician. Collado physical findings as per chart. I agree with the diagnoses and plan of care] (Reason: Weight) * Images: * Sign off status: Completed true * Appointment Provider: Giovani Luu DO Date: 0 07/05/2025 Generated for Baljit tian/Mercedes/Johanny on: 0 07/11/2025 10:14 AM EDT History and Physical Notes * HPI (History of Present Illness) Category Sub-Category Detail Notes Category Not es Depression Screening PHQ-2 (2015 Edition) Little interest or pleasure in doing things?: Not at all Ms. Babb is a 44-year-old female who presents to clinic today for 1 month follow-up concerning her weight and Adipex. Patient has lost approximately 2 pounds in the past month. She notes that she has increased her exercise regiment with her granddaughter. She is also continuing to watch what she eats as far as carbohydrate intake and does follow-up with food is medicine program. Patient notes that she seems to do very well with Adipex and Trulicity. She denies any side effects from medications today. Lastly, patient notes that she was diagnosed with rheumatoid arthritis from blood work she had done by podiatry. She is complaining of some bilateral metacarpal phalangeal joint pains today along with left shoulder pains that are arthritic in nature. She would like to know what she needs to do next for this condition. All questions and concerns were addressed with the patient. Feeling down, depressed, or hopeless?: N ot at all Total Score: 0 Examination Category Sub-Category Detail Notes Category Not es General Examination General: AOx4, no acute distress, ABCD HEENT: head atraumatic, normocephalic, moist mucous membranes Neck: supple no masses, no lymphadenopathy CVS: regular rate and rhythm, no murmurs or gallops Respiratory: clear to auscultation bilaterally, no wheezing or crackles, symmetric expansion GI: soft, nondistended, nontender, positive bowel sounds with no organomegaly Extremity: moves all extremities, no restrictions of movements, no calf tenderness, no edema Neuro: Moves all extremities in all planes of motion. Skin: dry, intact no rashes or lesions Psych: Cooperative, congruent mood, bright affect Consultation Request Notes Referral Date Referring Provider Referred Provider Not es 07/05/2025 John Luu , *FAXED 07/09 Pt reports history of rheumatoid arthritis and joint pains.
--- OUTSIDE RECORDS SUMMARY | 2025-07-11 10:14 | XMS_ITS | Clinical Summary ---
Author Organization [facility] Address [address] [place] [address] Care Team Providers Care Distributor Operator Name Role Phone Unavailable Primary Care Provider Unavailabl e Social History Tobacco Use Types Packs/Day Years Used Date Smoking Tobacco: Never Assessed Comments Unknown Sex and Gender Information Value Date Recorded Sex Assigned at Not on file Legal Sex Female 10:31 AM EST Gender Identity Not on file Sexual Orientation Not on file Plan of Treatment Health Maintenance Due Date Last Done Comments CT Colonography 1978 Colonoscopy 1978 Colorectal Cancer Screening 1978 Diabetes: Hemoglobin A1C 1978 FIT-DNA 1978 FIT 1978 FOBT 1978 Sigmoidoscopy 1978 Diabetes: Retinopathy Screening 1988 Depression Screening 1990 Diabetes: Urine Protein Screening 1997 Hepatitis B Vaccines (1 of 3 - 19+ 3-dose series) 1997 Pneumococcal Vaccine: Pediat rics (0 to 5 Years) and At-Risk Patients (6 to 64 Years) (1 of 2 - PCV) 1997 Pap Smear 1999 Adult Tetanus 2000 Cervical Cancer Screening 2008 HPV/Cotest 2008 Mammogram 2018 COVID-19 Vaccine ( - 2023-2 5 season) 2024 Influenza Vaccine (#1) 2025 Zoster Vaccines (1 of 2) 2028 HIB Vaccines Aged Out No longer eligi ble based on patient's age to complete this topic HPV Vaccines Aged Out No longer eligi ble based on patient's age to complete this topic IPV Vaccines Aged Out No longer eligi ble based on patient's age to complete this topic Meningococcal B Vaccine Aged Out No l onger eligible based on patient's age to complete this topic Meningococcal Vaccine Aged Out No susan yu eligible based on patient's age to complete this topic Rotavirus Vaccines Aged Out No longer eligible based on patient's age to complete this topic
--- OUTSIDE RECORDS SUMMARY | 2025-07-11 10:14 | XMS_ITS | Encounter Summary ---
Author Organization [facility] Address [address] [place] [address] Care Team Providers Care Community Health Planning Director Name Role Phone Lars Lucas DO Primary Care Provider [phone] Jus Lopez MD Primary Care Provider [phone] Encounter Details Date Type Department Care Team (Late Contact Info) Description 06/03/2025 External Result Encounter [facility] Unsolicited Mery Fairchild, LEADER WRITER [address] [place] [address] Social History Tobacco Use Types Packs/Day Years Used Date Smoking Tobacco: Former Cigarettes 0.5 10 0 01/27/2002 - 11/02/2008 Smokeless Tobacco: Never Alcohol Use Standard Drinks/Week Comments Not Currently 0 (1 standard drink = 0.6 oz pur e alcohol) PHQ-2 Answer Date Recorded Patient Health Questionnaire-2 Score 0 02/21/2025 Comments No Sex and Gender Information Value Date Recorded Sex Assigned at Not on file Legal Sex Female 6:46 PM EDT Gender Identity Not on file Sexual Orientation Not on file documented as of this encounter Plan of Treatment Upcoming Encounters Date Type Department Care Team (Late Contact Info) Description 08/19/2025 9:45 AM EDT Office Visit [facility] [address] [place] [address] Mariana David MD [address] [facility] [address] [place] [address] documented as of this encounter Procedures Procedure Name Priority Date/Time Associated Diagnosis Comments [facility] US LOWER EXTREMITY VENOUS DUPLEX BILATERAL 06/03/2025 8:44 AM EDT documented in this encounter Results * Vascular US lower extremity venous duplex bilateral (06/03/2025 8:44 AM EDT) Anatomical Region Laterality Modality Lower Extremities Ultrasound 06/03/2025 8:44 AM EDT Impressions 06/03/2025 8:46 AM EDT NO EVIDENCE FOR DEEP VEIN THROMBOSIS OR PROXIMAL SUPERFICIAL THROMBOPHLEBITIS IN THE RIGHT OR LEFT LOWER EXTREMITY. Impression dictated by: Ancelmo Dover M.D. 06/03/2025 8:44 AM Dictation Location: [place] [address] Tech: Ela Sullivan Transcribed By: ILIA 06/03/25 0844 Dictated By: Ancelmo Dover MD 06/03/25 0844 Signed By: <Electronically signed by MD Ancelmo Dover in [place]> 06/03/25 0844 Narrative 06/03/2025 8:46 AM EDT [facility] Main [address] [address] Ultrasound Report Signed Patient: Loy Tam MR#: [id number] : 1980 Acct:[id number] Age/Sex: 44 / F ADM Date: 06/02/25 Loc: ER Room: Type: [facility] ER Attending Dr: Ordering Provider: Mery Fairchild APRN Date of Service: 06/02/25 US/US venous duplex LE BI: recent surgery/hx of DVTs/swelling Copies to: Mery Fairchild APRN BILATERAL LOWER EXTREMITY VENOUS DUPLEX INDICATION: Painful swollen legs PROCEDURE: Color-flow duplex scanning is used to interrogate the deep venous system of the right and left lower extremities. The common femoral vein, femoral vein and popliteal vein show good compressibility with normal proximal and distal augmentation. The posterior tibial and peroneal veins are compressible. US/US venous duplex LE BI Procedure Note Ancelmo Dover MD - 06/03/2025 [facility] Main [place] [address] [place] [address] Ultrasound Report Signed Patient: Loy Tam NMR#: [id number] : 1980Acct:[id number] Age/Sex: 44 / FADM Date: 06/02/25 Loc: ER Room:Type: [facility] ER Attending Dr: Ordering Provider: Mery Fairchild APRN Date of Service: 06/02/25 US/US venous duplex LE BI: recent surgery/hx ofDVTs/swelling Copies to: Mery Fairchild APRN BILATERAL LOWER EXTREMITY VENOUS DUPLEX INDICATION: Painful swollen legs PROCEDURE: Color-flow duplex scanning is used to interrogate the deepvenous system of the right and left lower extremities. The common femoral vein, femoral vein andpopliteal vein show good compressibility with normal proximal and distal augmentation. Theposterior tibial and peroneal veins are compressible. US/US venous duplex LE BI IMPRESSION: NO EVIDENCE FOR DEEP VEIN THROMBOSIS OR PROXIMAL SUPERFICIALTHROMBOPHLEBITIS IN THE RIGHT OR LEFT LOWER EXTREMITY. Impression dictated by: Ancelmo Dover M.D. 06/03/2025 8:44 AM Dictation Location: [place] [address] Tech: Ela Nate Transcribed By: ILIA 06/03/25843 Dictated By: Ancelmo Dover MD 06/03/25843 Signed By: <Electronically signed by MD Ancelmo Dover in [place]> 06/03/25843 us Mery Fairchild LEADER WRITER IMG US PROCEDURES Final Resu lt documented in this encounter Visit Diagnoses Not on filedocumented in this encounter Care Teams Community Health Planning Director Relationship Specialty Start Date End Date Lars Lucas DO [phone] (work) PCP - General 07/13/23 06/05/25 Jus Lopez MD [address] [place] [address] PCP - General Family Medicine 06/06/25 documented as of this encounter
--- OUTSIDE RECORDS SUMMARY | 2025-07-11 10:14 | XMS_ITS | Clinical Summary ---
Author Organization [facility] Address [address] [place] [address] Care Team Providers Care Cosmetics Counter Manager Name Role Phone Jus Lopez MD Primary Care Provider [phone] Allergies Active Allergy Reactions Criticality Noted Date Comments Cyclobenzaprine 06/10/2023 Other Reaction(s): vomiting Naproxen 06/10/2023 Other Reaction(s): vomiting Ondansetron 06/10/2023 Other Reaction(s): sick Other 06/10/2023 Other Reaction(s): hives Medications omeprazole (PriLOSEC) [address] capsule Take 20 mg by mouth 1 (one) time each day at the same time. Active oxyCODONE-acetami nophen (Percocet) 5-325 MG tablet Take 1 tablet by mouth 3 (three) times a day as needed. 3 Active tiZANidine (Zanaflex) 4 MG tablet Take 4 mg by mouth every 12 (twelve) hours. 3 Active spironolactone (Aldactone) 25 MG tablet Take 25 mg by mouth 1 (one) time. Active hydrOXYzine pamoate (Vistaril) 25 MG capsule Take 25 mg by mouth every 12 (twelve) hours if needed. 3 Active Ascorbic Acid (vitamin C) 250 MG tablet Take 500 mg by mouth in the morning. Active cholecalciferol (Vitamin D-3) 25 MCG (1000 UT) capsule Take 1,000 Units by mouth in the morning. Active Dulaglutide (Trulicity) 4.5 MG/0.5ML solution auto-injector Inject under the skin Active phentermine (Adipex-P) 37.5 MG tablet Take 37.5 mg by mouth in the morning. Take before meals. Active acetaminophen (Tylenol) 325 MG tablet Take 325 mg by mouth every 6 (six) hours if needed for mild pain 5 Active dicyclomine (Bentyl) 20 MG tablet Take 20 mg by mouth 4 (four) times a day as needed 5 Active DULoxetine (Cymbalta) [address] capsule Take 20 mg by mouth Daily 5 Active ferrous sulfate 324 (65 Fe) MG EC tablet Take 324 mg by mouth in the morning. Take with meals. 5 Active loperamide (Imodium) 2 MG capsule Take 2 mg by mouth 3 (three) times a day as needed for diarrhea 4 Active meloxicam (Mobic) 15 MG tablet Take 15 mg by mouth Daily 4 Active metaxalone (Skelaxin) 400 MG tablet Take 400 mg by mouth in the morning and 400 mg in the evening and 400 mg before bedtime. 5 Active methylPREDNISolon e (Medrol Dospak) 4 MG tablets Take 4 mg by mouth 1 (one) time 5 Active potassium chloride ER (Micro-K) 10 MEQ ER capsule Take 10 mEq by mouth Daily 5 Active valsartan-hydroCH LOROthiazide (Diovan-HCT) 160-25 MG tablet Take 1 tablet by mouth Daily 5 Active promethazine (Phenergan) 25 MG tablet Take 25 mg by mouth every 6 (six) hours if needed for nausea 5 Active polyethylene glycol, PEG, 3350 (MiraLax) 17 GM/SCOOP powderIndications :Other constipation Take 17 g by mouth Daily for 7 days 119 g 2 5 06/13/20 25 Encounters Date Type Department Care Team Description 06/06/2025 10:00 AM EDT Office Visit [facility]UDINE [facility] [address] [place] [address] Clyde Aguilera, DO Encounter for postoperative care; Other constipation 06/06/2025 Travel 06/03/2025 External Result Encounter [facility] External Department Unsolicited KiepertMarianae A, FIBERGLASS INSULATION INSTALLER 06/03/2025 External Result Encounter [facility] External Department Unsolicited Kiepert Mery A, FIBERGLASS INSULATION INSTALLER 06/02/2025 External Result Encounter [facility] External Department Unsolicited Kiepert Mery A, FIBERGLASS INSULATION INSTALLER 06/02/2025 External Result Encounter [facility] External Department Unsolicited Kiepert Mery A, FIBERGLASS INSULATION INSTALLER 06/02/2025 External Result Encounter [facility] External Department Unsolicited Kiepert Mery A, FIBERGLASS INSULATION INSTALLER 05/09/2025 External Result Encounter [facility] External Department Unsolicited Clyde Aguilera, DO 05/09/2025 External Result Encounter [facility] External Department Unsolicited Clyde Aguilera, DO 05/02/2025 External Result Encounter [facility] External Department Unsolicited Clyde Aguilera, DO 05/02/2025 External Result Encounter [facility]OMS External Department Unsolicited Clyde Aguilera, DO 04/30/2025 Telephone [facility] Aline [facility]PE[facility] [address] [place] [phone] Tiffanie Recio MA from Last 3 Months Family History Medical History Relation Name Comments Diabetes Brother Mynor Sierra Stroke Brother Mynor Sierra Diabetes Father Narinder Sierra Heart disease Father Narinder Sierra Stroke Father Narinder Sierra Breast cancer Father's Sister Taras Sierra Diabetes Mother Inge Acevedo Heart disease Mother Inge Acevedo Diabetes Sister Bentley Acevedo Migraines Sister Bentley Acevedo Relation Name Status Comments Brother Mynor Sierra Father Narinder Sierra Father's Sister Taras Sierra Mother Inge Acevedo Sister Bentley Acevedo Social History Tobacco Use Types Packs/Day Years Used Date Smoking Tobacco: Former Cigarettes 0.5 10 0 01/27/2002 - 11/02/2008 Smokeless Tobacco: Never Tobacco Cessation:Counseling Given: Not Answered Alcohol Use Standard Drinks/Week Comments Not Currently 0 (1 standard drink = 0.6 oz pur e alcohol) PHQ-2 Answer Date Recorded Patient Health Questionnaire-2 Score 0 02/21/2025 Comments No Sex and Gender Information Value Date Recorded Sex Assigned at Not on file Legal Sex Female 6:46 PM EDT Gender Identity Not on file Sexual Orientation Not on file Last Filed Vital Signs Vital Sign Reading Time Taken Comments Blood Pressure 130/80 06/06/2025 10:06 AM EDT Pulse - - Temperature - - Respiratory Rate - - Oxygen Saturation - - Inhaled Oxygen Concentration - - Weight 114 kg (252 lb) 06/06/2025 10:06 AM EDT Height 170.2 cm (5' 7 ) 06/06/2025 10:06 AM EDT Body Mass Index 39.47 06/06/2025 10:06 AM EDT Plan of Treatment Upcoming Encounters Date Type Department Care Team (Late st Contact Info) Description 08/19/2025 9:45 AM EDT Office Visit CLAUDINE L[facility]PEZ [address] [place] [address] Mariana David MD [address] [place] [address] Procedures Procedure Name Priority Date/Time Associated Diagnosis Comments [facility] US UPPER EXTREMITY VENOUS DUPLEX LEFT 06/03/2025 8:44 AM EDT [facility] US LOWER EXTREMITY VENOUS DUPLEX BILATERAL 06/03/2025 8:44 AM EDT D-DIMER, QUANTITATIVE STAT 06/02/2025 3:48 PM EDT PARTIAL THROMBOPLASTIN TIME STAT 06/02/2025 3:48 PM EDT PROTHROMBIN TIME-INR STAT 06/02/2025 3:48 PM EDT COMPREHENSIVE METABOLIC PANEL STAT 06/02/2025 3:48 PM EDT CBC WITH AUTO DIFFERENTIAL STAT 06/02/2025 3:48 PM EDT GLUCOSE POCT GLUCOMETERS Routine 05/09/2025 9:03 AM EDT GLUCOSE POCT GLUCOMETERS Routine 05/09/2025 6:49 AM EDT COMPREHENSIVE METABOLIC PANEL Routine 05/02/2025 12:20 PM EDT CBC WITH AUTO DIFFERENTIAL Routine 05/02/2025 12:20 PM EDT BLOOD TYPE AND SCREEN GEL Routine 04/10/2025 10:06 AM EDT Preop testing COMPREHENSIVE METABOLIC PANEL Routine 04/10/2025 10:06 AM EDT Preop testing from Last 3 Months Results * Vascular US upper extremity venous duplex left (06/03/2025 8:44 AM EDT) Anatomical Region Laterality Modality Upper Extremities Ultrasound 06/03/2025 8:44 AM EDT Impressions 06/03/2025 8:47 AM EDT No evidence for deep vein thrombosis or superficial thrombophlebitis in the left upper extremity Impression dictated by: Ancelmo Dover M.D. 06/03/2025 8:45 AM Dictation Location: [place] [address] Tech: Ela Sullivan Transcribed By: ILIA 06/03/25 0845 Dictated By: Ancelmo Dover MD 06/03/25 0844 Signed By: <Electronically signed by MD Ancelmo Dover in OV> 06/03/25 0845 Narrative 06/03/2025 8:47 AM EDT [facility] [place] [address] Ultrasound Report Signed Patient: Loy Tam MR#: [id number] : 1980 Acct:[id number] Age/Sex: 44 / F ADM Date: 06/02/25 Loc: ER Room: Type: [facility] ER Attending Dr: Ordering Provider: Mery Fairchild APRN Date of Service: 06/02/25 US/US venous duplex UE LT: hx VTE, swelling, pain Copies to: Mery A Kiepert, VOYAGE MANAGEMENT SYSTEM OPERATOR Left upper extremity venous duplex examination Indication for study: Swollen left arm PROCEDURE: Color-flow duplex scanning is used to interrogate the venous anatomy of the left upper extremity. The right and left subclavian veins and the left jugular vein show good compressibility and color flow. Brachial veins, basilic vein, and cephalic vein all compress. US/US venous duplex UE LT Procedure Note Ancelmo Dover MD - 06/03/2025 [facility] [place] [address] Ultrasound Report Signed Patient: Loy Tam NMR#: [id number] : 1980Acct:[id number] Age/Sex: 44 / FADM Date: 06/02/25 Loc: ER Room:Type: [facility] ER Attending Dr: Ordering Provider: Mery Fairchild APRN Date of Service: 06/02/25 US/US venous duplex UE LT: hx VTE, swelling,pain Copies to: Mery Fairchild APRN Left upper extremity venous duplex examination Indication for study: Swollen left arm PROCEDURE: Color-flow duplex scanning is used to interrogate the venousanatomy of the left upper extremity. The right and left subclavian veins and the left jugular veinshow good compressibility and color flow. Brachial veins, basilic vein, and cephalic vein all compress. US/US venous duplex UE LT IMPRESSION: No evidence for deep vein thrombosis or superficial thrombophlebitis inthe left upper extremity Impression dictated by: Ancelmo Dover M.D. 06/03/2025 8:45 AM Dictation Location: [place] [address] Tech: Ela Nate Transcribed By: ILIA 06/03/25 0845 Dictated By: Ancelmo Dover MD 06/03/25 0844 Signed By: <Electronically signed by MD Ancelmo Dover in OV> 06/03/25 0845 us Mery Fairchild FIBERGLASS INSULATION INSTALLER IMG US PROCEDURES Final Resu lt * Vascular US lower extremity venous duplex bilateral (06/03/2025 8:44 AM EDT) Anatomical Region Laterality Modality Lower Extremities Ultrasound 06/03/2025 8:44 AM EDT Impressions 06/03/2025 8:46 AM EDT NO EVIDENCE FOR DEEP VEIN THROMBOSIS OR PROXIMAL SUPERFICIAL THROMBOPHLEBITIS IN THE RIGHT OR LEFT LOWER EXTREMITY. Impression dictated by: Ancelmo Dover M.D. 06/03/2025 8:44 AM Dictation Location: [place] [address] Tech: Ela Cordovaseamus Transcribed By: ILIA 06/03/25 0844 Dictated By: Ancelmo Dover MD 06/03/25 0844 Signed By: <Electronically signed by MD Ancelmo Dover in OV> 06/03/25 0844 Narrative 06/03/2025 8:46 AM EDT [facility] Main [address] [address] Ultrasound Report Signed Patient: Loy Tam MR#: [id number] : 1980 Acct:[id number] Age/Sex: 44 / F ADM Date: 06/02/25 Loc: ER Room: Type: [facility] ER Attending Dr: Ordering Provider: [...] Procedure Note Ancelmo Dover MD - 06/03/2025 [facility] Main [address] [address] Ultrasound Report Signed Patient: Loy Tam NMR#: [id number] : 1980Acct:[id number] Age/Sex: 44 / FADM Date: 06/02/25 Loc: ER Room:Type: [facility] ER Attending Dr: Ordering Provider: [...] Dover M.D. 06/03/2025 8:44 AM Dictation Location: [place] [address] Tech: Ela Grubbsjesús Transcribed By: ILIA 06/03/25 0844 Dictated By: Ancelmo Dover MD 06/03/25 0844 Signed By: <Electronically signed by MD Ancelmo Dover in OV> 06/03/25 0844 us Mery Fairchild FIBERGLASS INSULATION INSTALLER IMG US PROCEDURES Final Resu lt * PARTIAL THROMBOPLASTIN TIME (06/02/2025 3:48 PM EDT) [facility] Signature PARTIAL THROMBOPLASTIN TIME 31.3 25.1 - 36.5 s 06/02/2025 4:31 PM EDT [facility] Comment: A hematocrit value greater than 55% may lead to inaccurate results in coagulation testing. Patients having hematocrit values >55% require a special collection tube for coagulation studies. Please contact the laboratory at [phone] for redraw instructions. Other Topography unknown / Unknown 06/02/2025 3:48 PM EDT 06/02/2025 3:55 PM EDT us Mery Fairchild FIBERGLASS INSULATION INSTALLER LAB BLOOD ORDERABLES Final R esult [facility] [address] [place] [address], [facility] [address] [place] [address] * (ABNORMAL) CBC auto differential (06/02/2025 3:48 PM EDT) Only the most recent of2 resultswithin the time period is included. WBC 7.7 3.8 - 11.6 [CFU]/mL 06/02/2025 4:04 PM EDT [facility] UNCORRECTED WHITE BLOOD COUNT 7.7 3.8 - 11.6 10*3/uL 06/02/2025 4:04 PM EDT [facility] RBC 5.12(H) 3.60 - 5.00 10*6/uL 06/02/2025 4:04 PM EDT [facility] HEMOGLOBIN 12.6 11.8 - 15.4 g/dL 06/02/2025 4:04 PM EDT [facility] HEMATOCRIT 38.4 34.0 - 46.4 % 06/02/2025 4:04 PM EDT [facility] MCV 74.9(L) 80 - 100 fL 06/02/2025 4:04 PM EDT [facility] MCH 24.6(L) 24.7 - 34.3 pg 06/[facility] MCHC 32.9 32.0 - 35.0 g/dL 06/02/2025 4:04 PM EDT [facility] RED CELL DISTRIBUTION WIDTH, RDW 14.8 11.9 - 15.3 % 06/02/2025 4:04 PM EDT [facility] PLATELET COUNT 338 150 - 450 10*3/uL 06/02/2025 4:04 PM EDT [facility] MEAN PLATELET VOLUME, MPV 7.5 6.3 - 10.7 fL 06/02/2025 4:04 PM EDT [facility] MDW 19.88 0.00 - 20.00 % 06/02/2025 4:04 PM EDT [facility] NEUTROPHILS, % 53.9 . % 06/02/2025 4:04 PM EDT [facility] LYMPHOCYTES, % 33.4 . % 06/02/2025 4:04 PM EDT [facility] MONOCYTE/MACROPHA GE, % 6.5 . % 06/02/2025 4:04 PM EDT [facility] EOSINOPHILS, % 4.9 . % 06/02/2025 4:04 PM EDT [facility] BASOPHILS, % 1.3 . % 06/02/2025 4:04 PM EDT [facility] NRBC 0.1 0 - 0.5 /100{WBC} 06/02/2025 4:04 PM EDT [facility] NEUTROPHILS 4.2 1.8 - 7.7 10*3/uL 06/02/2025 4:04 PM EDT [facility] LYMPHOCYTES 2.6 1.00 - 4.8 10*3/uL 06/02/2025 4:04 PM EDT [facility] MONOCYTES 0.5 0.0 - 0.8 10*3/uL 06/02/2025 4:04 PM EDT [facility] EOSINOPHILS 0.4 0.0 - 0.45 10*3/uL 06/02/2025 4:04 PM EDT [facility] BASOPHILS 0.1 0.0 - 0.2 10*3/uL 06/02/2025 4:04 PM EDT [facility] Blood (Blood) 06/02/2025 3:4 8 PM EDT 06/02/2025 3:55 PM EDT us Mery Fairchild FIBERGLASS INSULATION INSTALLER LAB BLOOD ORDERABLES Final R esult Performing Organization Address [facility]/State/ZIP Co de Phone Number [facility] [address] [place] [address], [facility] [address] [place] [address] * (ABNORMAL) Protime-INR (06/02/2025 3:48 PM EDT) PROTHROMBIN TIME 13.1(H) 9.0 - 12.9 s 06/02/2025 4:31 PM EDT [facility] Comment: A hematocrit value greater than 55% may lead to inaccurate results in coagulation testing. Patients having hematocrit values >55% require a special collection tube for coagulation studies. Please contact the laboratory at [phone] for redraw instructions. INR 1.2 06/02/2025 4:31 PM EDT [facility] Comment: INR Therapeutic Range A) Pre- and [...] with mechanical heart valves: 3 - 4.5 Other Topography unknown / Unknown 06/02/2025 3:48 PM EDT 06/02/2025 3:55 PM EDT us Mery Fairchild FIBERGLASS INSULATION INSTALLER LAB BLOOD ORDERABLES Final R esult [facility] [address] [place] [address], [facility] [address] [place] [id number] * D-dimer, quantitative (06/02/2025 3:48 PM EDT) D-DIMER HIGH SENSITIVITY <200 0 - 243 ng/mL 06/02/2025 4:31 PM EDT [facility] Comment: The reference range for D-dimer is <243 ng/mL D-dimer units. D-dimer results must be used in conjunction with a clinical pretest probability (PTP) assessment model for deep vein thrombosis (DVT) and pulmonary embolism (PE). Results <230 ng/mL d-dimer units can be used as a negative predictor in patients with low or moderate probability for DVT/PE. Results above the exclusion threshold of 230 ng/ml D-dimer units for DVT/PE may indicate the need for further diagnostic testing. D-Dimer can be increased in hospitalized patients due to co-morbid conditions. A hematocrit value greater than 55% may lead to inaccurate results in coagulation testing. Patients having hematocrit values >55% require a special collection tube for coagulation studies. Please contact the laboratory at [phone] for redraw instructions. Other Topography unknown / Unknown 06/02/2025 3:48 PM EDT 06/02/2025 3:55 PM EDT Mery Tolliver Darinelinaolga FIBERGLASS INSULATION INSTALLER LAB BLOOD ORDERABLES Final R esult [facility] [address] [place] [address], [facility] [address] [place] [address] * Comprehensive metabolic panel (06/02/2025 3:48 PM EDT) Only the most recent of3 resultswithin the time period is included. Glucose 89 70 - 100 mg/dL 06/02/2025 4:21 PM EDT [facility] Comment: Random Glucose Reference Range is dependent on time and content of last meal. Glucose of more than 200 mg/dL in a nonstressed, ambulatory subject supports the diagnosis of Diabetes Mellitus. ADA recommended reference range BUN 9 7 - 25 mg/dL 06/02/2025 4:21 PM EDT [facility] CREATININE 0.68 0.60 - 1.20 mg/dL 06/02/2025 4:21 PM EDT [facility] ESTIMATED GFR >60.0 06/02/2025 4:21 PM EDT [facility] Sodium 140 136 - 145 mmol/L 06/02/2025 4:21 PM EDT [facility] Potassium, Bld 3.6 3.5 - 5.1 mmol/L 06/02/2025 4:21 PM EDT [facility] Chloride 106 98 - 107 mmol/L 06/02/2025 4:21 PM EDT [facility] Carbon Dioxide 27.4 21.0 - 31.0 mmol/L 06/02/2025 4:21 PM EDT [facility] Anion Gap 10.2 6.0 - 15.0 06/02/2025 [facility] Calcium 9.2 8.6 - 10.3 mg/dL 06/02/2025 4:21 PM EDT [facility] TOTAL PROTEIN 7.5 6.4 - 8.9 g/dL 06/02/2025 4:21 PM EDT [facility] ALBUMIN LEVEL 4.2 3.5 - 5.7 g/dL 06/02/2025 4:21 PM EDT [facility] GLOBULIN 3.3 g/dL 06/02/2025 4:21 PM EDT [facility] ALBUMIN/GLOBULIN RATIO 1.3 06/02/2025 4:21 PM EDT [facility] BILIRUBIN,TOTAL 0.6 0.3 - 1.0 mg/dL 06/02/2025 4:21 PM EDT [facility] ASPARTATE AMINO TRANSFERASE 15 13 - 39 U/L 06/02/2025 4:21 PM EDT [facility] ALANINE AMINOTRANSFERASE 14 7 - 52 U/L 06/02/2025 4:21 PM EDT [facility] ALKALINE PHOSPHATASE 100 34 - 104 U/L 06/02/2025 4:21 PM EDT [facility] CREATININE CLR [facility] 121.48 06/02/2025 4:21 PM EDT [facility] Other Topography unknown / Unknown 06/02/2025 3:48 PM EDT 06/02/2025 3:55 PM EDT us Mery Fairchild FIBERGLASS INSULATION INSTALLER LAB BLOOD ORDERABLES Final R esult Performing Organization Address City/State/[facility] Co de Phone Number [facility] [address] [place] [id number], [facility] [address] [place] [id number] * GLUCOSE POCT GLUCOMETERS (05/09/2025 9:03 AM EDT) Only the most recent of2 resultswithin the time period is included. [facility] GLUCOSE POC GLUCOMETERS 130 mg/dL 05/09/2025 9:10 AM EDT [facility] Comment: Random Glucose Reference Range is dependent on time and content of last meal. Glucose of more than 200 mg/dL in a nonstressed, ambulatory subject supports the diagnosis of Diabetes Mellitus. Blood (Blood) 05/09/2025 9:0 3 AM EDT 05/09/2025 9:10 AM EDT us Clyde Tolliver Visci DO LAB BLOOD ORDERABLES Final Re sult Performing Organization Address City/[facility]/ZIP Co de Phone Number [facility] [address] [place] [address], * Type and screen (04/10/2025 10:06 AM EDT) BLOOD TYPE B Positive [facility] ANTIBODY SCREEN NEGATIVE [facility] Blood Venous blood specimen / Unknown 04/10/2025 10:06 AM EDT 04/10/2025 10:06 AM EDT us Clyde Tolliver Visci DO LAB BLOOD ORDERABLES Final Re sult Performing Organization Address [facility] de Phone Number [facility] [address] [place] [address], [place] from Last 3 Months Insurance MEDICARE MEDICAID [place] Care Teams Cosmetics Counter Manager Relationship Specialty Start Date End Date Jus Lopez MD [address] [place] [address] PCP - General Family Medicine 06/06/25
--- OUTSIDE RECORDS SUMMARY | 2025-07-11 10:14 | XMS_ITS | Encounter Summary ---
Author Organization [facility] Address [address] [place] [address] Care Team Providers Care Instructional Services Librarian Name Role Phone Lars Lucas DO Primary Care Provider [phone] Jus Lopez MD Primary Care Provider [phone] Encounter Details Date Type Department Care Team (Late st Contact Info) Description 03/21/2025 Abstract CLAUDINE LÓPEZ [address] [facility] [address] [place] [phone] Clyde Aguilera DO [address] [facility] [address] [place] [address] Social History Tobacco Use Types Packs/Day Years [...] Description 08/19/2025 9:45 AM EDT Office Visit NOMGiovani LÓPEZ [address] [place] [address] Mariana David MD [address] [place] [address] documented as of this encounter Visit Diagnoses Not on filedocumented in this encounter Care Teams Instructional Services Librarian Relationship Specialty Start Date End Date Lars Lucas DO PCP - General 07/13/23 06/05/25 Jus Lopez MD [address] [place] [address] PCP - General Family Medicine 06/06/25 documented as of this encounter
--- OUTSIDE RECORDS SUMMARY | 2025-07-11 10:14 | XMS_ITS | Clinical Summary ---
Author Organization [facility] Address [address] [place] [address] Phone Care Team Providers Care Home Visits Nurse Name Role Phone Unavailable Primary Care Provider Unavailabl e Social History Tobacco Use Types Packs/Day Years Used Date Smoking Tobacco: Never Assessed Comments Unknown Sex and Gender Information Value Date Recorded Sex Assigned at Not on file Legal Sex Female 4:16 PM EDT Gender Identity Not on file Sexual Orientation Not on file Plan of Treatment Health Maintenance Due Date Last Done Comments CT Colonography 1978 Colonoscopy 1978 Colorectal Cancer Screening 1978 FIT-DNA (Cologuard) 1978 FIT 1978 HIV Screening 1978 Lipid Panel 1978 Sigmoidoscopy 1978 Yearly Adult Physical 1978 MMR Vaccines (1 of 1 - Stand vani series) 1979 Hepatitis C Screening 1996 Hepatitis B Vaccines (1 of 3 - 19+ 3-dose series) 1997 Cervical Cancer Screening 1999 HPV/Cotest 1999 Pap Smear 1999 DTaP/Tdap/Td Vaccines (1 - Tdap) 2000 Mammogram 2018 COVID-19 Vaccine ( - 2023-2 5 season) 2024 Influenza Vaccine (#1) 2025 Zoster Vaccines (1 of 2) 2028 HIB Vaccines Aged Out No longer eligi ble based on patient's age to complete this topic HPV Vaccines Aged Out No longer eligi ble based on patient's age to complete this topic Hepatitis A Vaccines Aged Out No long er eligible based on patient's age to complete this topic IPV Vaccines Aged Out No longer eligi ble based on patient's age to complete this topic Meningococcal Vaccine Aged Out No susan yu eligible based on patient's age to complete this topic Pneumococcal Vaccine: Pediat rics and At-Risk Adult Patients Aged Out No longer fatuma kim based on patient's age to complete this topic Rotavirus Vaccines Aged Out No longer eligible based on patient's age to complete this topic
--- OUTSIDE RECORDS SUMMARY | 2025-07-11 10:14 | XMS_ITS | Patient Health Record ---
Author Organization [facility] [place] Address [address] [place] [address] Care Team Providers Care Middleware Consultant Name Role Phone None, Unknown or Primary Care Provider Unavailab le Allergies Allergen (clinical drug ingredient) Drug/Non Drug Allergy documented on EMR Reaction Allergy Type Onset Date Status Flexeril Unknown Drug Allergy Active Zofran Unknown Drug Allergy Active Shellfish (FN) Shellfish-derived Products Unknown Drug Allergy Active Results Component Value Reference Range Notes XR foot LT min 3V (Not yet r eviewed by provider) Interpretation: Performing Lab: Notes/Report: Source Facility: [place] [address] XRay Report Signed Patient: LOY HASTINGS MR#: [id number] : 1980 Acct:[id number] Age/Sex: 44 / F ADM Date: 04/16/25 Loc: RAD Attending Dr: Peggy Garcia D.P.M. Ordering Physician: Peggy Garcia D.P.M. Date of Service: 04/16/25 Procedure(s): XR foot LT min 3V Accession Number(s): [id number] cc: FAMILY,HEALTH SER ; Peggy Garcia D.P.M. [place] [address] Patient Name: LOY HASTINGS MRN: [id number] date: 1980 Sex: F Assigned Patient Location: RAD Current Patient Location: RAD Accession/Order Number: [id number] Exam Date: 04/16/2025 10:45 Report Date: 04/16/2025 10:47 At the request of: PEGGY GARCIA DPM Procedure: XR foot LT min 3V XR foot LT min 3V 04/16/2025 10:04 AM SIGNS AND SYMPTOMS: Pain PROTOCOL: Frontal, lateral, calcaneal, and oblique views of the left foot COMPARISON: 06/26/2024 FINDINGS: There is evidence of fusion across the tibiotalar junction with similar fusion hardware. No hardware complication or malalignment. There are degenerative changes along the tarsometatarsal junctions, the first metatarsophalangeal joint, and the interphalangeal joint of the great toe. This is similar to the prior exam. No fracture or dislocation. No significant soft tissue swelling. There is lateral surface calcaneal spurring. XR/XR foot LT min 3V IMPRESSION: Postoperative changes are redemonstrated consistent with ankle fusion. No hardware complication or change in alignment. Degenerative changes are noted in the forefoot and midfoot as described above. This is similar to the prior study. No acute bony injury. Impression dictated by: Alan Matta M.D. 04/16/2025 10:47 AM Dictation Location: [place] [address] Electronically authenticated by: [id number] Y Date: 04/16/2025 10:47 Dictated By: Alan Matta M.D. Signed By: 04/16/25 1050 DD/ 1047 TD/TT: Mental Retardation Nurse: [address] [address] XRay Report Signed Patient: ALFRED HASTINGS MR#: [id number] : 1980 Acct:[id number] Age/Sex: 44 / F ADM Date: 04/16/25 Loc: [facility] Attending Dr: Peggy Garcia D.P.M. Ordering Physician: Peggy Garcia D.P.M. Date of Service: 04/16/25 Procedure(s): XR foot LT min 3V Accession Number(s): [id number] cc: FAMILY,HEALTH SE R ; Peggy Garcia D.P.M. [address] [place] [address] Patient Name: LOY HASTINGS MRN: [id number] date: 1980 Sex: F Assigned Patient Location: [facility] Current Patient Location: [facility] Accession/Order Numb er: [id number] Exam Date: 04/16/2025 10:45 Report Date: 04/16/2025 10:47 At the request of: PEGGY GARCIA DPM Procedure: XR foot LT min 3V XR foot LT min 3V 10:04 AM SIGNS AND SYMPTOMS: Pain PROTOCOL: Frontal, l ateral, calcaneal, and oblique views of the left foot COMPARISON: 06/26/2024 FINDINGS: There is evidence of fusion across the tibiotalar junction with similar fusion hardware. No hardwar e complication or malalignment. There are degenerative changes along the tarsometatarsal junctions, the first metatarsophalangeal joint, and the inter phalangeal joint of the great toe. This is similar to the prior exam. No fract ure or dislocation. No significant soft tissue swelling. There is lateral j carlos face calcaneal spurring. X R/XR foot LT min 3V IMPRESSION: Postoperative change s are redemonstrated consistent with ankle fusion. No hardware complicatio n or change in alignment. Degenerative changes are noted in the forefoot and midfoot as described above. This is similar to t he prior study. No acute bony injury. Impression dictated by: Alan Matta M.D. 04/16/2025 10:47 AM Dictation Location: [place] [address] Electronically authe nticated by: [id number] Y Date: 04/16/2025 10:47 Dictated By: Alan Matta M.D. Signed By: 04/16/25 1050 DD/ 1047 TD/TT: Mental Retardation Nurse: Reason For Referral No Information Medications Medication SIG (Take, Route, Frequency, Duration) Notes Start Date End Date Status [facility] Folic Acid 800 MCG TAKE 1 TABLET BY MOUTH EVERY DAY FOR 90 DAYS Oral for 90 Days Active Meloxicam 15 MG TAKE 1 TABLET BY QUE TH EVERY DAY for 30 Active Diclofenac Potassium 50 MG Oral for 14 Days Active Spironolactone 50 MG Oral for 90 Days Active tiZANidine HCl 4 MG Oral for 30 Days Active Ozempic (0.25 or 0.5 MG/DOSE) 2 MG/3ML Subcutaneous for 28 Days Active Omeprazole 20 MG Oral for 90 Days Active oxyCODONE-Acetaminophen 5-325 MG TAKE 1 TABLET BY MOUTH THREE TIMES A DAY NEEDED Oral for 30 Days Active Social History Tobacco Use: Social History Observation Description Date Details (start date - stop date) Never Smoker NA - NA Tobacco Use/Smoking Question Answer Notes Patient is a nonsmoker Problems Problem Type SNOMED Code ICD Code Onset Dates Problem Status W/U Status Risk Notes Problem 56980184 Type 2 diabetes mellitus with diabetic polyneuropathy (E11.42) Active confirmed Problem 8270795859455509 Primary osteoarthritis, left ankle and foot (M19.072) Active confirmed Problem 349848340 Pain in left ankle and joints of left foot (M25.572) Active confirmed Problem 57100692069230668 Pain in right foot (M79.671) Active confirmed Problem 418654564279148 Pain in left silvia t (M79.672) Active confirmed Problem 59204698 Unspecified sprain of left foot, initial encounter (S93.602A) Active confirmed Plan Of Treatment Pending Test Test Name Order Date XR Foot LT (3 views) * 06/26/2024 MRI Foot LT w/o contrast (Fore Foot) XR foot LT min 3V 10/28/2023 XR foot LT min 3V 04/16/2025 XR ankle LT min 3V 10/28/2023 Insurance Providers Payer Name Payer Address Payer Phone Subscriber Number Group Number Insured Name Patient Relationship to Insured Coverage Start Date Coverage End Date [place] [address] [place] [address] [id number] Loy Hastings Self - patient is the insured 3 [place] 2ND INS [address] [place], [place] [id number] Loy Hastings Self - patient is the insured [employer] [place] [address] [address] [place] [address] [id number] Loy Hastings Self - patient is the insured 3 3 Medical (General) History Medical History History ICD Code Bilateral plantar fasciitis M72.2 Complaint of paresthesia R20.2 Achilles tendinitis, right leg M76.61 Achilles tendinitis, left leg M76.62 Calcaneal spur, left M77.32 Ankle pain, left M25.572 Arthritis of ankle, left M19.072 Impingement syndrome of left ankle M25.8 72 Dehiscence of incision, subsequent encou nter T81.31XD Foot pain, left M79.672 Rupture of left Achilles tendon, sequela S86.012S Ingrowing nail L60.0 Acute paronychia of toe of left foot L03 .032 Nerve entrapment syndrome of left ankle G57.92 Abscess of left foot including toes L02. 612 Controlled type 2 diabetes mellitus with neuropathy E11.40 Heel spur, right M77.31 Acute deep vein thrombosis of left lower extremity I82.402 Contracture of left ankle M24.572 Foot pain, right M79.671 Complicated varicose veins I83.899 Controlled type 2 diabetes mellitus E11. 9 Active asthma J45.909 Ankle arthritis M19.90 Surgical History Surgery Date(Month/Year) left revision flexor halluci s longus tendon transfer, peroneal longus tendon transfer, excision of achilles tendon, 09/25/2020 posterior ankle arthrotomy w ith radical excision of scar contracture, excision os trig. post ankle impingement left achilles detachment/karma ttachment, FHL tendon transfer, and calcaneal spur removal 09/25/2019 delivery x2 bilateral heel spur surgery 2016,2017 Multiple wound debridements and skin gra fts by Dr Hendricks
--- OUTSIDE RECORDS SUMMARY | 2025-07-11 10:14 | XMS_ITS | Encounter Summary ---
Author Organization [facility] Address [address] [place] [address] Care Team Providers Care Gifted Program Teacher Name Role Phone Lars Lucas DO Primary Care Provider [phone] Jus Lopez MD Primary Care Provider [phone] Encounter Details Date Type Department Care Team (Late Contact Info) Description 06/03/2025 External Result Encounter [facility] External Department Unsolicited Mery Fairchild, SCRUBBER OPERATOR [address] [place] [address] Social History Tobacco Use Types Packs/Day Years [...] OBGYN [address] [place] [address] Mariana David MD [address] [facility] [address] [place] [address] documented as of this encounter Procedures Procedure Name Priority Date/Time Associated Diagnosis Comments [facility] US UPPER EXTREMITY VENOUS DUPLEX LEFT 06/03/2025 8:44 AM EDT documented in this encounter Results * Vascular US upper extremity venous duplex left (06/03/2025 8:44 AM EDT) Anatomical Region Laterality Modality Upper Extremities Ultrasound 06/03/2025 8:44 AM EDT Impressions 06/03/2025 8:47 AM EDT No evidence for deep vein thrombosis or superficial thrombophlebitis in the left upper extremity Impression dictated by: Ancelmo Dover M.D. 06/03/2025 8:45 AM Dictation Location: [place] [address] Tech: Ela Sullivan Transcribed By: ILIA 06/03/25 0845 Dictated By: Ancelmo Dover MD 06/03/25 0844 Signed By: <Electronically signed by MD Ancelmo Dover in [place]> 06/03/25 0845 Narrative 06/03/2025 8:47 AM EDT [facility] Main [address] [address] Ultrasound Report Signed Patient: Loy Tam MR#: [id number] : 1980 Acct:[id number] Age/Sex: 44 / F ADM Date: 06/02/25 Loc: ER Room: Type: [facility] ER Attending Dr: Ordering Provider: Mery Fairchild APRN Date of Service: 06/02/25 US/US venous duplex UE LT: hx VTE, swelling, pain Copies to: Mery Fairchild APRN Left upper [...] Procedure Note Ancelmo Dover MD - 06/03/2025 [facility] Main [place] [address] [place] [address] Ultrasound Report Signed Patient: Loy Tam NMR#: [id number] : 1980Acct:[id number] Age/Sex: 44 / FADM Date: 06/02/25 Loc: ER Room:Type: [facility] ER Attending Dr: Ordering Provider: Mery [...] Dover M.D. 06/03/2025 8:45 AM Dictation Location: [place] [address] Tech: Ela Sullivan Transcribed By: ILIA 06/03/25 0845 Dictated By: Ancelmo Dover MD 06/03/25 0844 Signed By: <Electronically signed by MD Ancelmo Dover in [place]> 06/03/25 0845 us Mery Fairchild SCRUBBER OPERATOR IMG US PROCEDURES Final Resu lt documented in this encounter Visit Diagnoses Not on filedocumented in this encounter Care Teams Gifted Program Teacher Relationship Specialty Start Date End Date Lars Lucas DO PCP - General 07/13/23 06/05/25 Jus Lopez MD [address] [place] [address] PCP - General Family Medicine 06/06/25 documented as of this encounter
--- OUTSIDE RECORDS SUMMARY | 2025-07-11 10:14 | XMS_ITS | Clinical Summary ---
Author Organization [facility] Address [id number] [address] [place] [address] Care Team Providers Care Support Representative Name Role Phone Unavailable Primary Care Provider Unavailabl e Social History Tobacco Use Types Packs/Day Years Used Date Smoking Tobacco: Never Assessed Childcare Answer Date Recorded Childcare Unknown 06/25/2020 Employment Answer Date Recorded Employment Unknown 06/25/2020 Purpose - Life Answer Date Recorded Purpose and direction in life Unknown Comments Unknown Sex and Gender Information Value Date Recorded Sex Assigned at Not on file Legal Sex Female 2:51 PM EDT Gender Identity Not on file Sexual Orientation Not on file Plan of Treatment Health Maintenance Due Date Last Done Comments Depression Screening 1990 Tobacco Screening 1990 Adult BMI Screening 1996 DTaP,Tdap and Td Vaccines (1 - Tdap) 1997 Pap Smear 1999 Influenza Vaccine 07/29/2025 Medical Devices Not on file Insurance [employer]
--- OUTSIDE RECORDS SUMMARY | 2025-07-11 10:15 | XMS_ITS | Encounter Summary ---
Author Organization [facility] Address [address] [place] [address] Care Team Providers Care Link Machine Operator Name Role Phone Lars Lucas DO Primary Care Provider [phone] Jus Lopez MD Primary Care Provider [phone] Encounter Details Date Type Department Care Team (Late st Contact Info) Description 12/29/2023 Orders Only CLAUDINE LÓPEZ [address] [place] [address] Mariana David MD [address] [place] [address] Social History Tobacco Use Types Packs/Day Years Used Date Smoking Tobacco: Never Smokeless Tobacco: Never Alcohol Use Standard Drinks/Week Comments Not Currently 0 (1 standard drink = 0.6 oz pur e alcohol) PHQ-2 Answer Date Recorded Patient Health Questionnaire-2 Score 0 07/13/2023 Comments Unknown Sex and Gender Information Value [...] LÓPEZ [address] [place] [address] Mariana David MD [address] [facility] [address] [place] [address] documented as of this encounter Procedures Procedure Name Priority Date/Time Associated Diagnosis Comments ULTRASOUND : TRANSVAGINAL Routine 2022 1:05 PM EDT documented in this encounter Results * ULTRASOUND : TRANSVAGINAL (07/25/2023 1:05 PM EDT) Anatomical Region Laterality Modality Radiographic Vita ging us Mariana David MD IMG XR PROCEDURES Final Result documented in this encounter Visit Diagnoses Not on filedocumented in this encounter Care Teams Link Machine Operator Relationship Specialty Start Date End Date Lars Lucas DO PCP - General 07/13/23 06/05/25 Jus Lopez MD [address] [place] [address] PCP - General Family Medicine 06/06/25 documented as of this encounter
--- OUTSIDE RECORDS SUMMARY | 2025-07-11 10:15 | XMS_ITS | Patient Health Record ---
Author Organization [facility] Address [address] [place] [address] Care Team Providers Care [place] Guide Name Role Phone John Luu Primary Care Provider [phone] Marquise Benjamin Unavailable [phone] Linda Acevedo Unavailable [phone] Rachelle Potter Unavailable [phone] Cedrick Mejia Unavailable [phone] Allergies Allergen (clinical drug ingredient) Drug/Non Drug Allergy documented on EMR Reaction Allergy Type Onset Date Status Shellfish (FN) scallops (uncoded) hives Allergy Active Flexeril vomiting Drug Allergy Active naproxen Naproxen vomiting Drug Allergy Active Zofran sick Drug Allergy Active Results Component Value Reference Range Notes MicroAlb Creat Ratio,U Reviewed date:09/11/2024 09:02:38 AM Interpretation: Performing Lab:, [facility], [address] [place] Notes/Report: comorbidity, uns Reason for Exam Obesity due to excess calories with serious Microalbumin, Urine 0.9 0.0-1.8 mg/dL Creatinine, Urine (Random) 167.00 N o reference range established Microalbumin/Creatinine Ratio 5.4 0.0-30.0 mg /g 30-300 mg/g indicates an increased risk for diabetic nephropathy. Greater than 300 mg/g is consistent with clinical nephropathy. (Am. J. Kidney Disease 1995, 25:107) A1C with Estimated Average G chano Reviewed date:09/11/2024 09:02:38 AM Interpretation: Performing Lab:, [facility], [place] Notes/Report: Reason for Exam Obesity due to excess calories with serious comorbidity, uns Hemoglobin A1C 5.9 4.3-5.6 % Increased risk for diabetes: 5.7 - 6.4 diabetes: >6.4 glycemic control for adults with diabetes: <7.0 Estimated Average Glucose 123 Comprehensive Metabolic Pane l Reviewed date:09/11/2024 09:02:38 AM Interpretation: Performing Lab:, [facility], [place] Notes/Report: Reason for Exam Obesity due to excess calories with serious comorbidity, uns Glucose 89 70-100 mg/dL Random Glucose Reference Range is dependent on time and content of last meal. Glucose of more than 200 mg/dL in a nonstressed, ambulatory subject supports the diagnosis of Diabetes Mellitus. ADA recommended reference range Blood Urea Nitrogen 11 7-25 mg/dL Creatinine 0.77 0.60-1.20 mg/dL Sodium 142 136-145 mmol/L Potassium 4.0 3.5-5.1 mmol/L Chloride 107 98-107 mmol/L Carbon Dioxide 28.8 21.0-31.0 mmol/L Calcium 8.8 8.6-10.3 mg/dL Total Protein 6.7 6.4-8.9 g/dL Albumin Level 3.8 3.5-5.7 g/dL Globulin 2.9 Albumin/Globulin Ratio 1.3 Bilirubin,Total 0.4 0.3-1.0 mg/dL Aspartate Amino Transferase 13 13-39 U/L Alanine Aminotransferase 17 7-52 U/L Alkaline Phosphatase 102 34-104 U/L Estimated GFR > 60.0 Anion Gap 10.2 6.0-15.0 Thyroid Stim Hormone w/Rflx Reviewed date:09/11/2024 09:02:38 AM Interpretation: Performing Lab: Notes/Report: Reason for Exam Obesity due to excess calories with serious comorbidity, uns Thyroid Stim Hormone w/Rflx 0.94 0.45-5.33 u[i U]/mL Complete Blood Count Auto Di ff Reviewed date:09/11/2024 09:02:39 AM Interpretation: Performing Lab:, [facility], [place] Notes/Report: Reason for Exam Obesity due to excess calories with serious comorbidity, uns White Blood Count 7.7 3.8-11.6 10*3/uL Uncorrected WBC 7.7 3.8-11.6 10*3/uL Red Blood Count 5.08 3.60-5.00 Hemoglobin 12.5 11.8-15.4 g/dL Hematocrit 38.5 34.0-46.4 % Mean Corpuscular Volume 75.7 80-100 fL Mean Corpuscular Hemoglobin 24.5 24.7-34.3 pg Mean Corpuscular HGB Conc 32.4 32.0-35.0 g/dL Red Cell Distribution Width 15.0 11.9-15.3 % Platelet Count 324 150-450 10*3/uL Mean Platelet Volume 7.4 6.3-10.7 fL Neutrophils % (Auto) 56.2 . % Lymphocytes % (Auto) 35.0 . % Monocytes % (Auto) 4.6 . % Eosinophils % (Auto) 3.6 . % Basophils % (Auto) 0.6 . % NRBC% 0.1 0-0.5 /100{WBC} Neutrophils # (Auto) 4.3 1.8-7.7 10*3/uL Lymphocytes # (Auto) 2.7 1.00-4.8 10*3/uL Monocytes # (Auto) 0.4 0.0-0.8 10*3/uL Eosinophils # (Auto) 0.3 0.0-0.45 10*3/uL Basophils # (Auto) 0.0 0.0-0.2 10*3/uL Lipid Panel Reviewed date:09/11/2024 09:02:38 AM Interpretation: Performing Lab: Notes/Report: Reason for Exam Obesity due to excess calories with serious comorbidity, uns Cholesterol 166 140-200 mg/dL Chol less than 200 mg/dl low risk Chol 201-239 mg/dl borderline risk Chol 240 mg/dl and greater high risk HDL Cholesterol 37 23-92 mg/dL HDL CHOL ATP-III CLASSIFICATION Cardiovascular Risk HDL > or equal to 60 mg/dL LOW HDL < 40 mg/dL HIGH Triglyceride w/Reflex 78 0-149 mg/dL TRIG ATP III CLASSIFICATION TRIG less than 150 mg/dL Normal TRIG 150-199 mg/dL Borderline high TRIG 200-500 mg/dL High TRIG greater than 500 mg/dL Very high Standard traceable to the Center for Disease Conrtrol and Prevention (CDC) test method. LDL Cholesterol,Calculated 113 0-100 mg/dL LDL ATP III CLASSIFICATION LDL less than 100 mg/dL Optimal LDL 100-129 mg/dL Near or above optimal LDL 130-159 mg/dL Borderline high LDL 160-189 mg/dL High LDL greater than 189 mg/dL Very high VLDL CHOLESTEROL 15 Chol/HDL Ratio 4.5 <5.0 US breast LT limited Reviewed date:04/10/2025 01:23:32 PM Interpretation:N Performing Lab: Notes/Report: [facility] Main [place] [address] [place] [address] Ultrasound Report Signed Patient: Loy Babb MR#: [id number] : 1980 Acct:[id number] Age/Sex: 44 / F ADM Date: 04/10/25 [facility]: [facility] Room: Type: [facility] Attending Dr: Sneha Joe MD Ordering [...] Jr., D.ORosey 04/10/2025 9:55 AM Dictation Location: [facility] Tech: Dana Paredes Transcribed By: ILIA 04/10/25954 Dictated By: Marquise Mendenhall Jr, DO 04/10/25 0940 Signed By: <Electronically signed by Marquise Mendenhall Jr, DO in OV> 05/14/25 0955 Reason For Referral Reason Unable to lose weigh t TE 3-4 Diagnosis 1 Unable to lose weigh t (R63.8) Referral Organization [facility] ice Referring Provider First Name Lopez Referring Provider Last Name Jus Referring Provider [facility] ctice Referred Provider Specialty Substance Abuse Specialist Referral Priority Routine Reason SCHEDULED Unable t o lose weight *FAXED 01/24 Diagnosis 1 Unable to lose weigh t (R63.8) Referral Organization [facility] ice Referring Provider First Name Lopez Referring Provider Last Name Jus Referring Provider [facility] ct[facility] Referred Provider [facility] Referred Provider Specialty Weight Manag ement General Notes Rosetta Kapadia 2024 10:47:11 AM >[phone], Referral Priority Routine Reason *FAXED 07/09 Pt rep orts history of rheumatoid arthritis and joint pains. Diagnosis 1 Rheumatoid arthritis involving both hands, unspecified whether rheumatoid factor present (M06.9) Referral Organization [facility] ice Referring Provider First Name Lopez Referring Provider Last Name Jus Referring Provider [facility] ct[facility] Referred Provider Specialty Rheumatology General Notes Rosetta Kapadia 2024 09:22:46 AM >JORDON Abdi (Dr. Unger) [phone] Referral Priority Routine Medications Medication SIG (Take, Route, Frequency, Duration) Notes Start Date End Date Status oxyCODONE-Acetami nophen 5-325 MG 1 tablet as needed Orally every 6 hrs Active Ferrous Sulfate 324 MG 3 tablet Orally every other day; Duration: 30 day(s) 07/14/2020 Active DULoxetine HCl 20 MG TAKE 1 CAPSULE BY MOUTH EVERY DAY FOR 30 DAYS; Duration: 90 Active Valsartan-hydroCH LOROthiazide 160-25 MG TAKE 1 TABLET BY MOUTH EVERY DAY; Duration: 90 Active Blood Glucose Test - as directed In Vitro once a day; Duration: 90 days *WHICHEVER BRAND IS COVERED BY INSURANCE* 09/29/2023 Active Lidocaine 5 % 1 application as needed Externally Three times a day; Duration: 90 days please provide patient with the concentration that will be covered by her insurance Active Pen [place] 33G X 4 MM as directed subcutaneous once a day; Duration: 30 days please provide for victoza whatever is preferred by insurance please 07/14/2020 Active FreeStyle Nubia 3 Sensor - as directed; Duration: 140 days 06/04/2025 Active Adipex-P 37.5 MG 1 tablet before breakfast Orally Once a day; Duration: 30 days 07/05/2025 09/03/2025 Active Omeprazole 20 MG 1 capsule 30 minutes before morning meal Orally Once a day; Duration: 90 days Active Lancet Devices - as directed; Duration: 30 days 04/16/2024 Active Blood Glucose Test - as directed In Vitro check blood sugar once a day; Duration: 30 days whatever brand is covered by insurance 03/19/2024 Active Trulicity 4.5 MG/0.5ML as directed Subcutaneous once a week; Duration: 90 days 12/24/2024 01/01/2026 Active Alcohol Prep Pads 70 % as directed check blood sugar once a day whatever brand is covered by insurance 03/19/2024 Active Immunizations Vaccine Route Administration Date Status Comme nts zzz Unknown 11/10/2016 Refused Offered and de clined at this time. Social History Tobacco Use: Social History Observation Description Date Details (start date - stop date) Never Smoker NA - NA Sex Assigned At : Social History Observation Description Sex Assigned At Female PRAPARE Question Answer Notes Date Completed/Updated: 12/13/2024 What is your current housing situation? I have h ousing Are you worried about losing your housing? No What is the highest level of school that you have finished? 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 Check all that apply I do not have problems meeting my needs Has lack of transportation k ept you from medical appointments, meetings, work or from getting things needed for daily living? No How often do you see or talk to people that you care about and feel close to? (For example: talking to friends on the phone, visiting friends or family, going to druze or club meetings) More than 5 times a week How stressed are you? Stress is when someone feels tense, nervous, anxious, or cant sleep at night because their mind is troubled Somewhat In the past year have you sp ent more than 2 nights in a row in a halfway, assisted, snf center, or juvenile correctional facility? No Are you a refugee? No What country are you from? [place] Do you feel physically and e motionally safe where you currently live? Yes In the past year, have you b een afraid of your partner or ex-partner? No PRAPARE Score: 3 AUDIT-C (Standard) Question Answer Notes Did you have a drink containing alcohol in the p ast year? No Points 0 Interpretation Negative Tobacco Control (Standard) Question Answer Notes Tobacco use: Nonsmoker Section Notes: Denies alcohol or ilicit jimenez g use Denies alcohol or ilicit jimenez g use Denies alcohol or ilicit jimenez g use Denies alcohol or ilicit jimenez g use Denies alcohol or ilicit jimenez g use Denies alcohol or ilicit jimenez g use Denies alcohol or ilicit jimenez g use Denies alcohol or ilicit jimenez g use Denies alcohol or ilicit jimenez g use Denies alcohol or ilicit jimenez g use Denies alcohol or ilicit jimenez g use Denies alcohol or ilicit jimenez g use Denies alcohol or ilicit jimenez g use Denies alcohol or ilicit jimenez g use Denies alcohol or ilicit jimenez g use Denies alcohol or ilicit jimenez g use Denies alcohol or ilicit jimenez g use Denies alcohol or ilicit jimenez g use Denies alcohol or ilicit jimenez g use Denies alcohol or ilicit jimenez g use Denies alcohol or ilicit jimenez g use Denies alcohol or ilicit jimenez g use Denies alcohol or ilicit jimenez g use Denies alcohol or ilicit jimenez g use Denies alcohol or ilicit jimenez g use Denies alcohol or ilicit jimenez g use Denies alcohol or ilicit jimenez g use Denies alcohol or ilicit jimenez g use Denies alcohol or ilicit jimenez g use Denies alcohol or ilicit jimenez g use Denies alcohol or ilicit jimenez g use Denies alcohol or ilicit jimenez g use Denies alcohol or ilicit jimenez g use Denies alcohol or ilicit jimenez g use Denies alcohol or ilicit jimenez g use Denies alcohol or ilicit jimenez g use Problems Problem Type SNOMED Code ICD Code Onset Dates Problem Status W/U Status Risk Notes Problem Morbid obesity (disorder) (078260009) Morbid (severe) obesity due to excess calories (E66.01) Active confirmed Problem Obesity due to excess calories (927847560) Other obesity due to excess calories (E66.09) Active confirmed Problem Chronic pain (82952177) Other chronic pain (G89.29) Active confirmed Problem Complex regional pain syndrome type I of left lower limb (disorder) (581976389541941) Complex regional pain syndrome I of left lower limb (G90.522) Active confirmed Problem Essential hypertension (51105063) Essential (primary) hypertension (I10) Active confirmed Problem Vitiligo (94162016) Vitiligo (L80) Active confi rmed Problem Acanthosis nigricans (953129351) Acanthosis nigricans (L83) Active confirmed Problem Sciatica (88888819) Lumbago with sciatica, left side (M54.42) Active confirmed Problem Fibromyalgia (207930090) Fibromyalgia (M79.7) Active confirmed Problem Paresthesia (finding) (25994623) Paresthesia of skin (R20.2) Active confirmed Problem Obesity (423994521) Obesity (E66.9) Active conf irmed Problem Type II diabetes mellitus without complication (391964266) Diabetes (E11.9) Active confirmed Problem Knee pain (5560020926) Knee pain (M25.569) Active confirmed Problem Carpal tunnel syndrome (77243903) Carpal tunnel syndrome (G56.00) Active confirmed Problem Constipation (30667953) Constipation, unspecified constipation type (K59.00) Active confirmed Problem Gastroesophageal reflux disease without esophagitis (218246908) Gastroesophageal reflux disease without esophagitis (K21.9) Active confirmed Problem Syncope and collapse (472708352) Syncope, unspecified syncope type (R55) Active confirmed Problem Insomnia (867443564) Insomnia, unspecified type (G47.00) Active confirmed Problem Tension-type headache (888107646) Acute non intractable tension-type headache (G44.209) Active confirmed Problem Migraine with aura (2716103) Migraine with aura and without status migrainosus, not intractable (G43.109) Active confirmed Problem Iron deficiency anemia due to chronic blood loss (418869262) Iron deficiency anemia due to chronic blood loss (D50.0) Active confirmed Problem Recurrent major depression in remission (80294495) Recurrent major depressive disorder, in partial remission (F33.41) Active confirmed Problem Type II diabetes mellitus without complication (563219612) Type 2 diabetes mellitus without complication, without long-term current use of insulin (E11.9) Active confirmed Problem Heart disease screening (978542434) Screening for heart disease (Z13.6) Active confirmed Problem Vitamin B>12< deficiency anaemia (47186440) Anemia due to vitamin B12 deficiency, unspecified B12 deficiency type (D51.9) Active confirmed Problem Supraspinatus (muscle) (tendon) sprain (S46.819A) Active confirmed Problem Osteoarthritis of multiple joints (054617737) Other osteoarthritis involving multiple joints (M15.8) Active confirmed Problem Asthma without status asthmaticus (03729708) Poorly controlled persistent asthma (J45.998) Active confirmed Problem Obese class II (823317926184039) Body mass index [BMI] 35.0-35.9, adult (Z68.35) Active confirmed Problem Body mass index 35.00 to 39.99 (712425354748391) Body mass index [BMI] 38.0-38.9, adult (Z68.38) Active confirmed Problem Body mass index 35.00 to 39.99 (665740467118632) Body mass index [BMI] 39.0-39.9, adult (Z68.39) Active confirmed Problem Obesity (347876946) Obesity due to excess calories with serious comorbidity, unspecified classification (E66.09) Active confirmed Problem Body mass index 40+ - severely obese (238305770) Body mass index [BMI] 40.0-44.9, adult (Z68.41) Active confirmed Problem Rheumatoid arthritis (82673193) Rheumatoid arthritis involving both hands, unspecified whether rheumatoid factor present (M06.9) Active confirmed Problem Type 2 diabetes mellitus with hypoglycemia without coma, without long-term current use of insulin (E11.649) Active confirmed Problem Obese class II (finding) (710375024181422) Obesity, class 2 (E66.812) Active confirmed Vital Signs Heart Rate 82 /min 07/05/2025 Temperature 97.9 degrees Fahrenheit 07/05/2025 Respiratory Rate 18 /min 07/05/2025 Blood pressure diastolic 78 mm Hg 07/05/2025 Oximetry 100 % 07/05/2025 Height 67.5 in 07/05/2025 Blood pressure systolic 123 mm Hg 07/05/2025 Weight 250.6 lbs 07/05/2025 BMI 38.67 kg/m2 07/05/2025 Encounters Encounter Location Date Provider Diagnosis [facility] [address] [place] [address] 01/03/2025 [facility] [address] [place] [address] 07/12/2024 [place] [address] [place] [address] 07/24/2024 [facility] [address] [place] [address] 07/24/2024 Marquise Benjamin [facility] [place] [address] [place] [address] 08/16/2024 [place] [address] [place] [address] 08/21/2024 [facility] Obesity due to exces s calories with serious comorbidity, unspecified classification E66.09 ; Type 2 diabetes mellitus without complication, without long-term current use of insulin E11.9 and Essential (primary) hypertension I10 [facility] [address] [place] [address] 09/05/2024 [facility] [address] [place] [address] 11/05/2024 [facility] Supraspinatus (muscl e) (tendon) sprain S46.819A [facility] [address] [place] [address] 11/16/2024 [facility] [address] [place] [address] 12/06/2024 [facility] [address] [place] [address] 01/29/2025 [facility] [address] [place] [address] 04/08/2025 John Luu [facility] [address] [facility] [place] [address] 06/11/2025 John Luu [facility] [address] [facility] [place] [address] 06/11/2025 John Luu [place] [address] [place] [address] 06/13/2025 John Luu [place] [address] [place] [address] 07/23/2024 John Luu Iron deficiency anem ia due to chronic blood loss D50.0 ; Type 2 diabetes mellitus without complication, without long-term current use of insulin E11.9 ; Gastroesophageal reflux disease without esophagitis K21.9 ; Morbid (severe) obesity due to excess calories E66.01 ; Body mass index [BMI] 39.0-39.9, adult Z68.39 and Thrush, oral B37.0 [facility] [address] [place] [address] 08/22/2024 Lopezsulma Luu Diabetes E11.9 and Obesity E66.9 [facility] [address] [place] [address] 09/20/2024 John Luu Body mass index [BMI ] 35.0-35.9, adult Z68.35 ; Obesity, class 2 E66.812 and Morbid (severe) obesity due to excess calories E66.01 [facility] [address] [place] [address] 12/24/2024 Lopezsulma Salterlu Obesity E66.9 and Encounter for weight management Z76.89 [facility] [address] [place] [address] 01/24/2025 John Luu Unable to lose weigh t R63.8 ; Essential hypertension I10 and Swelling of lower extremity M79.89 [facility] [address] [place] [address] 02/25/2025 John Luu Obesity E66.9 and Un able to lose weight R63.8 [facility] [address] [place] [address] 03/25/2025 John Luu Abnormal finding on breast imaging R92.8 ; Other obesity due to excess calories E66.09 ; Body mass index [BMI] 38.0-38.9, adult Z68.38 ; Obesity, class 2 E66.812 ; Fibromyalgia M79.7 ; Preventative health care Z00.00 ; Constipation, unspecified constipation type K59.00 and Unable to lose weight R63.8 [facility] [address] [place] [address] 05/02/2025 John Luu Obesity E66.9 and Co mmon cold J00 [facility] [address] [place] [address] 06/04/2025 John Luu Obesity E66.9 and Ty pe 2 diabetes mellitus with hypoglycemia without coma, without long-term current use of insulin E11.649 [facility] [address] [place] [address] 07/05/2025 John Luu Other obesity due to excess calories E66.09 ; Body mass index [BMI] 38.0-38.9, adult Z68.38 ; Obesity, class 2 E66.812 ; Rheumatoid arthritis involving both hands, unspecified whether rheumatoid factor present M06.9 and Obesity E66.9 [facility] [address] [place] [address] 12/13/2024 John Luu Fall, subsequent encounter W19.XXXD ; Arm pain, left M79.602 ; Left hand pain M79.642 and Swelling of left hand M79.89 [facility] [address] [place] [address] 05/27/2025 Rachelle Potter Dental caries on pit and fissure surface penetrating into dentin K02.52 [facility] [address] [place] [address] 03/26/2025 Marquise Benjamin Dental caries on pit and fissure surface penetrating into dentin K02.52 [facility] [address] [place] [address] 01/08/2025 Marquise Benjamin Cracked tooth K03.81 and Encounter for dental examination and cleaning with abnormal findings Z01.21 [facility] [address] [place] [place] [address] 04/04/2025 Cedrick Mejia Type 2 diabetes nely itus without complication, without long-term current use of insulin E11.9 ; Obesity E66.9 ; Gastroesophageal reflux disease without esophagitis K21.9 ; Body mass index [BMI] 38.0-38.9, adult Z68.38 ; Constipation, unspecified constipation type K59.00 ; Essential (primary) hypertension I10 and Anemia due to vitamin B12 deficiency, unspecified B12 deficiency type D51.[address] [place] [address] 06/13/2025 Cedrick Mejia Obesity E66.9 ; Type 2 diabetes mellitus without complication, without long-term current use of insulin E11.9 ; Gastroesophageal reflux disease without esophagitis K21.9 ; Body mass index [BMI] 38.0-38.9, adult Z68.38 ; Constipation, unspecified constipation type K59.00 ; Essential (primary) hypertension I10 and Anemia due to vitamin B12 deficiency, unspecified B12 deficiency type D51.9 Assessments Encounter Date Diagnosis (ICD Code) Assessment Notes Treatment Notes Treatment Clinical Notes Section Notes 08/21/2024 Type 2 diabetes mellitus without complication, without long-term current use of insulin (ICD-10 - E11.9) 08/21/2024 Obesity due to excess calories with serious comorbidity, unspecified classification (ICD-10 - E66.09) 08/22/2024 Obesity (ICD-10 - E66.9) 08/22/2024 Diabetes (ICD-10 - E11.9) Pertaining to her diabetes, I have given the patient a few samples of Dexcom here today. I have also provided her a pamphlet with information about the Dexcom G7 and a support number she can call in case there are financial support options for her should she choose to pay [id number] for the device. I will refill her Trulicity at this time. Pertaining to her obesity, we will continue the phentermine at this time. Patient responds very well to phentermine. Patient confirms that she will continue her diet and exercise regiment. I encouraged the patient to keep up her great work. Follow-up in 1 month for lab analysis and phentermine follow-up. 09/20/2024 Body mass index [BMI] 35.0-35.9, adult (ICD-10 - Z68.35) Review of lab work reveals microcytosis. No other findings were noted. I have an extensive conversation with the patient about further changes to her diet that could be made. Patient notes that she does have white bread from time to time. I noted to the patient to replace white bread with whole-wheat bread and to try cooking with whole-wheat flour rather than white flour. Furthermore, I instructed the patient to replace simple carbohydrates with complex carbohydrates and to seek out foods higher in fiber and to seek out whole foods such as vegetables and fruits. Patient voices understanding and agreement to the plan of care. I will refill her Adipex at this time. Follow-up in 3 months for weight check. Blood pressure was elevated on first check, but on recheck blood pressure is below 140/90. I find no reason to increase her blood pressure medication at this time. Follow-up in 3 months. 09/20/2024 Obesity, class 2 (ICD-10 - E66.812) 11/05/2024 Supraspinatus (muscle) (tendon) sprain (ICD-10 - S46.819A) 07/23/2024 Iron deficiency anemia due to chronic blood loss (ICD-10 - D50.0) 07/23/2024 Type 2 diabetes mellitus without complication, without long-term current use of insulin (ICD-10 - E11.9) Patient's glycemic control is well-controlled at this time. There is no need for increase in dosage of Trulicity at this time. Pertaining to her Adipex, a refill will be sent today. Patient notes that the pharmacy has notified her that she will be able to have this refilled today. I instructed the patient to call our office if there are any further problems. Pertaining to her thrush, we will send a nystatin swish and spit solution for her. I instructed the patient to follow-up if the thrush does not improve within a week. Follow-up in 1 month for Adipex recheck. All questions and concerns were addressed with the patient. We also talked about diet and exercise. Patient will continue to improve on these aspects. Patient voices that she will start to cut some salt out of her diet, but notes that she does not add salt to anything as it is. I instructed the patient to eat no more than 2 g of salt per day. Patient verbalizes understanding. Follow-up in 1 month. 12/13/2024 Arm pain, left (ICD-10 - M79.602) 12/13/2024 Fall, subsequent encounter (ICD-10 - W19.XXXD) Due to findings on exam and fall occurring a little over 1 week ago, recommendation at this time is to repeat x-rays 2 to 3 weeks after her fall. Exam is not concerning for scaphoid fracture at this time, but we will reassess with x-rays. I instruct the patient to get the x-rays within the next week or 2. Patient voices understanding and agreement to the plan of care. Particularly, x-rays will be due at the latest around December 29. Patient has a follow-up appointment in a few weeks for weight recheck for her phentermine prescription. Follow-up then. 12/24/2024 Obesity (ICD-10 - E66.9) Refill for Trulicity and Adipex are placed at this time. I instructed patient to let us know if she needs anything from us during the stressful time. Patient is appreciative of this. Patient notes that she will try her best to restart her diet and exercise regiment while on the Adipex. She verbalizes that she would like to do better, but life has been rough lately. Follow-up in 1 month for weight recheck while on Adipex. 12/24/2024 Encounter for weight management (ICD-10 - Z76.89) 01/08/2025 Cracked tooth (ICD-10 - K03.81) 01/24/2025 Unable to lose weight (ICD-10 - R63.8) Refills are placed at this time. Adipex refill is placed at this time. I informed the patient that her recent weight gain may be related to her fluid status. Of note, she does have 2+ pitting edema bilaterally in lower extremities that could be adding to her weight. Patient also notes that she has made no changes over the past few months to her diet and exercise plan that I worked for her in the past. She is interested in seeing a dietitian and weight management at this time. I will send referrals to them today. Her blood pressure is elevated here today with findings of 2+ pitting edema BLE. Due to this, I will switch amlodipine olmesartan combination pill to hydrochlorothiazide valsartan combination pill. Amlodipine can cause a side effect of swelling in extremities. Ergo, we will change this to a diuretic. I informed the patient to continue checking her blood pressures at home. I also expect this change medication will help her lose some weight. All questions and concerns were addressed with the patient. Follow-up in 1 month for weight recheck. 02/25/2025 Obesity (ICD-10 - E66.9) - Refills placed at this time. Patient is meeting with Substance Abuse Specialist and Weight Management in the next week. - Patient is currently recovering from grief.- Schedule monthly follow-up appointments to monitor stress levels and track weight loss progress.- Patient will call us to let us know if Radiology does indeed recommend mammogram at this time despite having one in November this year.- Plan for a follow-up appointment in one month for weight management. 02/25/2025 Unable to lose weight (ICD-10 - R63.8) 03/25/2025 Other obesity due to excess calories (ICD-10 - E66.09) Loy, female patient with history of obesity and fibromyalgia, presents for one-month follow-up weight check while on Adipex, reporting recent weight loss and fibromyalgia flare-up. ObesityAssessment: Patient has shown positive progress with weight management, losing 6 pounds over the past month while on Adipex. Recent stressors, including loss of family members, had previously stalled weight loss efforts. Current diet and exercise regimen appear to be effective.Plan:- Continue Adipex (dose not specified)- Encourage continuation of current diet and exercise regimen- Follow-up appointment in one month for weight check and medication review FibromyalgiaAssessme nt: Patient reports a flare-up of fibromyalgia symptoms, particularly in the left arm and elbow for the past 2 days. Weather changes appear to exacerbate symptoms. Previous treatments, if any, were not discussed.Plan:- Initiate duloxetine (Cymbalta) for fibromyalgia management - Informed patient that medication may take 4-6 weeks to take effect - Instructed the patient to look out for serotonin syndrome symptoms. She is to stop the medication should this occur and report to the ER. Patient verbalizes understanding to this.- Reassess efficacy of duloxetine at next follow-up appointment Breast imaging follow-upAssessment: Patient had a mammogram in February 2024 that required a repeat ultrasound of the right breast. A 6-month follow-up was recommended.Plan:- Order ultrasound of the left breast - Mammogram order placed for screening- Review imaging reports when available Preventive careAssessment: Patient is due for colonoscopy screening. She receives gynecological care, including Pap smears, from her OB-PUBLIC RELATIONS OFFICER, Dr. David. Patient has a significant smoking history of approximately 70 pack-years but is currently a non-smoker.Plan:- Discuss colonoscopy screening options at next appointment- Patient to consider referral to general surgeon for colonoscopy consultation ConstipationAssessme nt: Patient reports mild constipation, likely related to recent dietary changes associated with weight loss efforts.Plan:- Monitor symptoms- Reassess at next follow-up appointment 01/24/2025 Essential hypertension (ICD-10 - I10) 03/25/2025 Abnormal finding on breast imaging (ICD-10 - R92.8) 03/26/2025 Dental caries on pit and fissure surface penetrating into dentin (ICD-10 - K02.52) 04/04/2025 Obesity (ICD-10 - E66.9) Pt presents for initial RD visit. Referred by Dr. Jus Lopez Nutrition related Dx: E66.9 Obesity, E11.9 DM2, K21.9 GERD, D50.0 Iron deficiency, I10 HTN Nutrition related RX: Adipex and Trulicity (started 6 months ago) Motivators: Per pt report wants to get back to healthy weight, gained weight from leg surgery/not able to be active Weight history: Was around 300# and now 248# (intentional weight loss within last 6 months) Food Allergies/Into lerances: Does not consume alot of milk or ice cream- triggers GERD Dental: Steak (hard to chew) Appetite:Usual ly not hungry throughout the day, gets hungry at night Grocery Shopping: [employer] Household: , son (6) and daughter (9) Cooking: Self Sleep: 4-5 hours per night GI: N/A - - - - - 24-HR Recall: Wake up: 5:15am Breakfast: 6:30-7:00am Special K cereal with unsweetened almond milk or 2% milk or fruit, or cucumber water Snack: N/A Lunch: 3:00-4:00pm sandwich (ham or turkey) on white bread, cheese, knapp, tomato or soup (broccoli and cheese or chicken noodle) (canned) Snack: N/A Dinner: 7:00-9:00pm spaghetti or chicken or fish, mashed potatoes, corn Snack: sunchips or cranberry biscuit or yogurt with fruit Beverages: fruit infused water, regular pop (2 cans per day) Physical Activity: Had leg surgery- limited ability to exercise Estimated [place] x 1.2 AF: 1,675 kcals/day for 1lb/week weight loss - - - - - OBJECTIVE: Initial weight/BMI: 250 lbs / 38.57 kg/m2 (03/25/25) - - - - - Nutrition Rx: Plate method; non-starchy vegetables; lean, low sodium protein sources; complex carbohydrates; heart healthy fats Protein/day: 80-90g/day (1.0-1.1 g/kg adj body weight) Nutrition Dx: 1. Obesity related to limited physical activity, inconsistent energy intake/excessi ve carbohydrate intake, food insecurity causing patient to consume low quality foods, and limited access to nutrition education as evidenced by 24-hr recall showing intake beyond needs, reported physical activity below recommendation s, positive screening for food insecurity, and BMI >30 kg/m2. 2. Inadequate nutrient intake (fiber and protein) related to nutrition knowledge deficit as evidenced by 24 hr recall showing intake below recommended amount. - - - - - INTERVENTION: Summary of Visit/Educatio n Provided: a) Overview of FIM program (expectations, box pick ups, etc.) b) Plate method c) Importance of fiber/protein for blood sugar regulation and satiety d) Importance of not skipping meals e) Different types of carbohydrates and how they impact blood sugar Worked with patient to set the following goals: 1) Eating within 2 hours of waking, consume small, frequent meals or snakcs every 3-4 hours 2) Add snack between breakfast and lunch- include a veggie 2 days a week 3) Reduce pop to 1 per day, increase fruit infused water intake - - - - - Other Relevant Information Discussed @ Visit: - Materials Provided: plate method overview, meal timing handout, food bag, snacks to pack for work handout, snacks that include protein handout, snack builder handout, carbohydrate handout, how carbs impact your blood sugar handout - - - - - Monitoring/Anne maddenation -Weight, total intake, nutrition related lab values - - - - - RD name and contact information provided. Patient with no further nutrition-rela abdias questions at this time. Patient to follow-up with RD on 05/07/25. Patient seen from 11:00 AM to 11:46 AM for a total of 46 minutes spent with patient. Patient to olive picker next [employer] box 04/25/25. Seen by Cedrick Mejia MPH, RD, LD. 04/04/2025 Type 2 diabetes mellitus without complication, without long-term current use of insulin (ICD-10 - E11.9) Pt presents for initial RD visit. Referred by Dr. Jus Lopez Nutrition related Dx: E66.9 Obesity, E11.9 DM2, K21.9 GERD, D50.0 Iron deficiency, I10 HTN Nutrition related RX: Adipex and Trulicity (started 6 months ago) Motivators: Per pt report wants to get back to healthy weight, gained weight from leg surgery/not able to be active Weight history: Was around 300# and now 248# (intentional weight loss within last 6 months) Food Allergies/Into lerances: Does not consume alot of milk or ice cream- triggers GERD Dental: Steak (hard to chew) Appetite:Usual ly not hungry throughout the day, gets hungry at night Grocery Shopping: [employer] Household: , son (6) and daughter (9) Cooking: Self Sleep: 4-5 hours per night GI: N/A - - - - - 24-HR Recall: Wake up: 5:15am Breakfast: 6:30-7:00am Special K cereal with unsweetened almond milk or 2% milk or fruit, or cucumber water Snack: N/A Lunch: 3:00-4:00pm sandwich (ham or turkey) on white bread, cheese, knapp, tomato or soup (broccoli and cheese or chicken noodle) (canned) Snack: N/A Dinner: 7:00-9:00pm spaghetti or chicken or fish, mashed potatoes, corn Snack: sunchips or cranberry biscuit or yogurt with fruit Beverages: fruit infused water, regular pop (2 cans per day) Physical Activity: Had leg surgery- limited ability to exercise Estimated [place] x 1.2 AF: 1,675 kcals/day for 1lb/week weight loss - - - - - OBJECTIVE: Initial weight/BMI: 250 lbs / 38.57 kg/m2 (03/25/25) - - - - - Nutrition Rx: Plate method; non-starchy vegetables; lean, low sodium protein sources; complex carbohydrates; heart healthy fats Protein/day: 80-90g/day (1.0-1.1 g/kg adj body weight) Nutrition Dx: 1. Obesity related to limited physical activity, inconsistent energy intake/excessi ve carbohydrate intake, food insecurity causing patient to consume low quality foods, and limited access to nutrition education as evidenced by 24-hr recall showing intake beyond needs, reported physical activity below recommendation s, positive screening for food insecurity, and BMI >30 kg/m2. 2. Inadequate nutrient intake (fiber and protein) related to nutrition knowledge deficit as evidenced by 24 hr recall showing intake below recommended amount. - - - - - INTERVENTION: Summary of Visit/Educatio n Provided: a) Overview of FIM program (expectations, box pick ups, etc.) b) Plate method c) Importance of fiber/protein for blood sugar regulation and satiety d) Importance of not skipping meals e) Different types of carbohydrates and how they impact blood sugar Worked with patient to set the following goals: 1) Eating within 2 hours of waking, consume small, frequent meals or snakcs every 3-4 hours 2) Add snack between breakfast and lunch- include a veggie 2 days a week 3) Reduce pop to 1 per day, increase fruit infused water intake - - - - - Other Relevant Information Discussed @ Visit: - Materials Provided: plate method overview, meal timing handout, food bag, snacks to pack for work handout, snacks that include protein handout, snack builder handout, carbohydrate handout, how carbs impact your blood sugar handout - - - - - Monitoring/Anne luation -Weight, total intake, nutrition related lab values - - - - - RD name and contact information provided. Patient with no further nutrition-rela abdias questions at this time. Patient to follow-up with RD on 05/07/25. Patient seen from 11:00 AM to 11:46 AM for a total of 46 minutes spent with patient. Patient to olive picker [employer] box 04/25/25. Seen by Cedrick Mejia MPH, RD, LD. 05/02/2025 Obesity (ICD-10 - E66.9) Refill placed at this time for Adipex. I instruct the patient continue the great work she is doing with exercise and diet. Patient verbalizes that she will. Concerning her respiratory infection symptoms, I believe it is most likely a cold at this time. Differential could also include bronchitis. I informed the patient that since its only been a week, and no signs of bacterial symptoms, antibiotics are not needed at this time. I instructed patient to take Mucinex with Benadryl to help with the congestion. I will send Tessalon Perles at this time to help with her cough. Patient is appreciative. Patient verbalized understanding and agreement to the plan of care. Follow-up in 1 month for Adipex and weight check. 05/02/2025 Common cold (ICD-10 - J00) 05/27/2025 Dental caries on pit and fissure surface penetrating into dentin (ICD-10 - K02.52) 06/04/2025 Obesity (ICD-10 - E66.9) Patient responded well to Adipex in the past. I do believe that her minimal weight gain over the past few months is due to her not being able to take Trulicity due to her hysterectomy. Refills are sent at this time for Adipex and Trulicity. I will recheck in 1 month to assess for needing to continue the Adipex at that time. If patient gains weight at next visit, thinking and decision may be made to stop Adipex at that time. Patient verbalizes understanding to this. Freestyle nubia sensors are sent at this time. Refills are placed at this time. Follow-up in 1 month for weight recheck. All questions and concerns were addressed with the patient. 06/04/2025 Type 2 diabetes mellitus with hypoglycemia without coma, without long-term current use of insulin (ICD-10 - E11.649) 06/13/2025 Obesity (ICD-10 - E66.9) Pt presents for initial RD visit. Referred by Dr. Jus Lopez challenges: Had hysterectomy on and still recovering successful changes: down to 1 pop per every couple of days, introducing more veggies into diet Nutrition related Dx: E66.9 Obesity, E11.9 DM2, K21.9 GERD, D50.0 Iron deficiency, I10 HTN Nutrition related RX: Adipex and Trulicity (started 6 months ago) Motivators: Per pt report wants to get back to healthy weight, gained weight from leg surgery/not able to be active Weight history: Was around 300# and now 248# (intentional weight loss within last 6 months) Food Allergies/Into lerances: Does not consume alot of milk or ice cream- triggers GERD Dental: Steak (hard to chew) Appetite:Usual ly not hungry throughout the day, gets hungry at night Grocery Shopping: [employer] Household: , son (6) and daughter (9) Cooking: Self Sleep: 4-5 hours per night GI: N/A - - - - - 24-HR Recall: Wake up: 5:15am Breakfast: 6:30-7:00am Special K cereal with unsweetened almond milk or 2% milk or fruit, or cucumber water Snack: N/A Lunch: 3:00-4:00pm sandwich (ham or turkey) on white bread, cheese, knapp, tomato or soup (broccoli and cheese or chicken noodle) (canned) Snack: N/A Dinner: 7:00-9:00pm spaghetti or chicken or fish, mashed potatoes, corn Snack: sunchips or cranberry biscuit or yogurt with fruit Beverages: fruit infused water, regular pop (2 cans per day) Physical Activity: Had leg surgery- limited ability to exercise Estimated [place] x 1.2 AF: 1,675 kcals/day for 1lb/week weight loss - - - - - OBJECTIVE: Initial weight/BMI: 250 lbs / 38.57 kg/m2 (03/25/25) 252.4 (06/04/25) - - - - - Nutrition Rx: Plate method; non-starchy vegetables; lean, low sodium protein sources; complex carbohydrates; heart healthy fats Protein/day: 80-90g/day (1.0-1.1 g/kg adj body weight) Nutrition Dx: 1. Obesity related to limited physical activity, inconsistent energy intake/excessi ve carbohydrate intake, food insecurity causing patient to consume low quality foods, and limited access to nutrition education as evidenced by 24-hr recall showing intake beyond needs, reported physical activity below recommendation s, positive screening for food insecurity, and BMI >30 kg/m2. 2. Inadequate nutrient intake (fiber and protein) related to nutrition knowledge deficit as evidenced by 24 hr recall showing intake below recommended amount. - - - - - INTERVENTION: Summary of Visit/Educatio n Provided: a) Reviewed plate method b) Reviewed importance of fiber/protein for blood sugar regulation and satiety c) Reviewed importance of not skipping meals Worked with patient to set the following goals: 1) Eat within 2 hours of waking, consume small, frequent meals or snakcs every 3-4 hours (in progress) 2) Add snack between breakfast and lunch (in progress) 3) Aim to get protein at every meal and snack - - - - - Other Relevant Information Discussed @ Visit: - Materials Provided: protein sources handout, food bag - - - - - Monitoring/Anne luation -Weight, total intake, nutrition related lab values - - - - - RD name and contact information provided. Patient with no further nutrition-rela abdias questions at this time. Patient to follow-up with RD in 6-8 weeks. Patient seen from 10:47 AM to 11:11 AM for a total of 24 minutes spent with patient. Patient to olive picker [employer] box 06/24/25. Seen by Cedrick Mejia MPH, RD, LD. 06/13/2025 Type 2 diabetes mellitus without complication, without long-term current use of insulin (ICD-10 - E11.9) Pt presents for initial RD visit. Referred by Dr. Jus Lopez challenges: Had hysterectomy on and still recovering successful changes: down to 1 pop per every couple of days, introducing more veggies into diet Nutrition related Dx: E66.9 Obesity, E11.9 DM2, K21.9 GERD, D50.0 Iron deficiency, I10 HTN Nutrition related RX: Adipex and Trulicity (started 6 months ago) Motivators: Per pt report wants to get back to healthy weight, gained weight from leg surgery/not able to be active Weight history: Was around 300# and now 248# (intentional weight loss within last 6 months) Food Allergies/Into lerances: Does not consume alot of milk or ice cream- triggers GERD Dental: Steak (hard to chew) Appetite:Usual ly not hungry throughout the day, gets hungry at night Grocery Shopping: [employer] Household: , son (6) and daughter (9) Cooking: Self Sleep: 4-5 hours per night GI: N/A - - - - - 24-HR Recall: Wake up: 5:15am Breakfast: 6:30-7:00am Special K cereal with unsweetened almond milk or 2% milk or fruit, or cucumber water Snack: N/A Lunch: 3:00-4:00pm sandwich (ham or turkey) on white bread, cheese, knapp, tomato or soup (broccoli and cheese or chicken noodle) (canned) Snack: N/A Dinner: 7:00-9:00pm spaghetti or chicken or fish, mashed potatoes, corn Snack: sunchips or cranberry biscuit or yogurt with fruit Beverages: fruit infused water, regular pop (2 cans per day) Physical Activity: Had leg surgery- limited ability to exercise Estimated [place] x 1.2 AF: 1,675 kcals/day for 1lb/week weight loss - - - - - OBJECTIVE: Initial weight/BMI: 250 lbs / 38.57 kg/m2 (03/25/25) 252.4 (06/04/25) - - - - - Nutrition Rx: Plate method; non-starchy vegetables; lean, low sodium protein sources; complex carbohydrates; heart healthy fats Protein/day: 80-90g/day (1.0-1.1 g/kg adj body weight) Nutrition Dx: 1. Obesity related to limited physical activity, inconsistent energy intake/excessi ve carbohydrate intake, food insecurity causing patient to consume low quality foods, and limited access to nutrition education as evidenced by 24-hr recall showing intake beyond needs, reported physical activity below recommendation s, positive screening for food insecurity, and BMI >30 kg/m2. 2. Inadequate nutrient intake (fiber and protein) related to nutrition knowledge deficit as evidenced by 24 hr recall showing intake below recommended amount. - - - - - INTERVENTION: Summary of Visit/Educatio n Provided: a) Reviewed plate method b) Reviewed importance of fiber/protein for blood sugar regulation and satiety c) Reviewed importance of not skipping meals Worked with patient to set the following goals: 1) Eat within 2 hours of waking, consume small, frequent meals or snakcs every 3-4 hours (in progress) 2) Add snack between breakfast and lunch (in progress) 3) Aim to get protein at every meal and snack - - - - - Other Relevant Information Discussed @ Visit: - Materials Provided: protein sources handout, food bag - - - - - Monitoring/Anne luation -Weight, total intake, nutrition related lab values - - - - - RD name and contact information provided. Patient with no further nutrition-rela abdias questions at this time. Patient to follow-up with RD in 6-8 weeks. Patient seen from 10:47 AM to 11:11 AM for a total of 24 minutes spent with patient. Patient to olive picker next [employer] box 06/24/25. Seen by Cedrick Mejia MPH, RD, LD. 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 Patient filled this form out. Follow-up in 3 months for weight check and Adipex reconciliation. 07/05/2025 Body mass index [BMI] 38.0-38.9, adult (ICD-10 - Z68.38) 07/05/2025 Obesity, class 2 (ICD-10 - E66.812) 06/13/2025 Gastroesophageal reflux disease without esophagitis (ICD-10 - K21.9) Pt presents for initial RD visit. Referred by Dr. Jus Lopez challenges: Had hysterectomy on and still recovering successful changes: down to 1 pop per every couple of days, introducing more veggies into diet Nutrition related Dx: E66.9 Obesity, E11.9 DM2, K21.9 GERD, D50.0 Iron deficiency, I10 HTN Nutrition related RX: Adipex and Trulicity (started 6 months ago) Motivators: Per pt report wants to get back to healthy weight, gained weight from leg surgery/not able to be active Weight history: Was around 300# and now 248# (intentional weight loss within last 6 months) Food Allergies/Into lerances: Does not consume alot of milk or ice cream- triggers GERD Dental: Steak (hard to chew) Appetite:Usual ly not hungry throughout the day, gets hungry at night Grocery Shopping: [employer] Household: , son (6) and daughter (9) Cooking: Self Sleep: 4-5 hours per night GI: N/A - - - - - 24-HR Recall: Wake up: 5:15am Breakfast: 6:30-7:00am Special K cereal with unsweetened almond milk or 2% milk or fruit, or cucumber water Snack: N/A Lunch: 3:00-4:00pm sandwich (ham or turkey) on white bread, cheese, knapp, tomato or soup (broccoli and cheese or chicken noodle) (canned) Snack: N/A Dinner: 7:00-9:00pm spaghetti or chicken or fish, mashed potatoes, corn Snack: sunchips or cranberry biscuit or yogurt with fruit Beverages: fruit infused water, regular pop (2 cans per day) Physical Activity: Had leg surgery- limited ability to exercise Estimated [place] x 1.2 AF: 1,675 kcals/day for 1lb/week weight loss - - - - - OBJECTIVE: Initial weight/BMI: 250 lbs / 38.57 kg/m2 (03/25/25) 252.4 (06/04/25) - - - - - Nutrition Rx: Plate method; non-starchy vegetables; lean, low sodium protein sources; complex carbohydrates; heart healthy fats Protein/day: 80-90g/day (1.0-1.1 g/kg adj body weight) Nutrition Dx: 1. Obesity related to limited physical activity, inconsistent energy intake/excessi ve carbohydrate intake, food insecurity causing patient to consume low quality foods, and limited access to nutrition education as evidenced by 24-hr recall showing intake beyond needs, reported physical activity below recommendation s, positive screening for food insecurity, and BMI >30 kg/m2. 2. Inadequate nutrient intake (fiber and protein) related to nutrition knowledge deficit as evidenced by 24 hr recall showing intake below recommended amount. - - - - - INTERVENTION: Summary of Visit/Educatio n Provided: a) Reviewed plate method b) Reviewed importance of fiber/protein for blood sugar regulation and satiety c) Reviewed importance of not skipping meals Worked with patient to set the following goals: 1) Eat within 2 hours of waking, consume small, frequent meals or snakcs every 3-4 hours (in progress) 2) Add snack between breakfast and lunch (in progress) 3) Aim to get protein at every meal and snack - - - - - Other Relevant Information Discussed @ Visit: - Materials Provided: protein sources handout, food bag - - - - - Monitoring/Anne luation -Weight, total intake, nutrition related lab values - - - - - RD name and contact information provided. Patient with no further nutrition-rela abdias questions at this time. Patient to follow-up with RD in 6-8 weeks. Patient seen from 10:47 AM to 11:11 AM for a total of 24 minutes spent with patient. Patient to olive picker [employer] box 06/24/25. Seen by Cedrick Mejia MPH, RD, LD. 04/04/2025 Gastroesophageal reflux disease without esophagitis (ICD-10 - K21.9) Pt presents for initial RD visit. Referred by Dr. Jus Lopez Nutrition related Dx: E66.9 Obesity, E11.9 DM2, K21.9 GERD, D50.0 Iron deficiency, I10 HTN Nutrition related RX: Adipex and Trulicity (started 6 months ago) Motivators: Per pt report wants to get back to healthy weight, gained weight from leg surgery/not able to be active Weight history: Was around 300# and now 248# (intentional weight loss within last 6 months) Food Allergies/Into lerances: Does not consume alot of milk or ice cream- triggers GERD Dental: Steak (hard to chew) Appetite:Usual ly not hungry throughout the day, gets hungry at night Grocery Shopping: [employer] Household: , son (6) and daughter (9) Cooking: Self Sleep: 4-5 hours per night GI: N/A - - - - - 24-HR Recall: Wake up: 5:15am Breakfast: 6:30-7:00am Special K cereal with unsweetened almond milk or 2% milk or fruit, or cucumber water Snack: N/A Lunch: 3:00-4:00pm sandwich (ham or turkey) on white bread, cheese, knapp, tomato or soup (broccoli and cheese or chicken noodle) (canned) Snack: N/A Dinner: 7:00-9:00pm spaghetti or chicken or fish, mashed potatoes, corn Snack: sunchips or cranberry biscuit or yogurt with fruit Beverages: fruit infused water, regular pop (2 cans per day) Physical Activity: Had leg surgery- limited ability to exercise Estimated [place] x 1.2 AF: 1,675 kcals/day for 1lb/week weight loss - - - - - OBJECTIVE: Initial weight/BMI: 250 lbs / 38.57 kg/m2 (03/25/25) - - - - - Nutrition Rx: Plate method; non-starchy vegetables; lean, low sodium protein sources; complex carbohydrates; heart healthy fats Protein/day: 80-90g/day (1.0-1.1 g/kg adj body weight) Nutrition Dx: 1. Obesity related to limited physical activity, inconsistent energy intake/excessi ve carbohydrate intake, food insecurity causing patient to consume low quality foods, and limited access to nutrition education as evidenced by 24-hr recall showing intake beyond needs, reported physical activity below recommendation s, positive screening for food insecurity, and BMI >30 kg/m2. 2. Inadequate nutrient intake (fiber and protein) related to nutrition knowledge deficit as evidenced by 24 hr recall showing intake below recommended amount. - - - - - INTERVENTION: Summary of Visit/Educatio n Provided: a) Overview of FIM program (expectations, box pick ups, etc.) b) Plate method c) Importance of fiber/protein for blood sugar regulation and satiety d) Importance of not skipping meals e) Different types of carbohydrates and how they impact blood sugar Worked with patient to set the following goals: 1) Eating within 2 hours of waking, consume small, frequent meals or snakcs every 3-4 hours 2) Add snack between breakfast and lunch- include a veggie 2 days a week 3) Reduce pop to 1 per day, increase fruit infused water intake - - - - - Other Relevant Information Discussed @ Visit: - Materials Provided: plate method overview, meal timing handout, food bag, snacks to pack for work handout, snacks that include protein handout, snack builder handout, carbohydrate handout, how carbs impact your blood sugar handout - - - - - Monitoring/Anne luation -Weight, total intake, nutrition related lab values - - - - - RD name and contact information provided. Patient with no further nutrition-rela abdias questions at this time. Patient to follow-up with RD on 05/07/25. Patient seen from 11:00 AM to 11:46 AM for a total of 46 minutes spent with patient. Patient to olive picker [employer] box 04/25/25. Seen by Cedrick Mejia MPH, RD, LD. 08/21/2024 Essential (primary) hypertension (ICD-10 - I10) 03/25/2025 Body mass index [BMI] 38.0-38.9, adult (ICD-10 - Z68.38) 01/24/2025 Swelling of lower extremity (ICD-10 - M79.89) 01/08/2025 Encounter for dental examination and cleaning with abnormal findings (ICD-10 - Z01.21) 12/13/2024 Left hand pain (ICD-10 - M79.642) 09/20/2024 Morbid (severe) obesity due to excess calories (ICD-10 - E66.01) 07/23/2024 Gastroesophageal reflux disease without esophagitis (ICD-10 - K21.9) 07/23/2024 Morbid (severe) obesity due to excess calories (ICD-10 - E66.01) 12/13/2024 Swelling of left hand (ICD-10 - M79.89) 03/25/2025 Obesity, class 2 (ICD-10 - E66.812) 04/04/2025 Body mass index [BMI] 38.0-38.9, adult (ICD-10 - Z68.38) Pt presents for initial RD visit. Referred by Dr. Jus Lopez Nutrition related Dx: E66.9 Obesity, E11.9 DM2, K21.9 GERD, D50.0 Iron deficiency, I10 HTN Nutrition related RX: Adipex and Trulicity (started 6 months ago) Motivators: Per pt report wants to get back to healthy weight, gained weight from leg surgery/not able to be active Weight history: Was around 300# and now 248# (intentional weight loss within last 6 months) Food Allergies/Into lerances: Does not consume alot of milk or ice cream- triggers GERD Dental: Steak (hard to chew) Appetite:Usual ly not hungry throughout the day, gets hungry at night Grocery Shopping: [employer] Household: , son (6) and daughter (9) Cooking: Self Sleep: 4-5 hours per night GI: N/A - - - - - 24-HR Recall: Wake up: 5:15am Breakfast: 6:30-7:00am Special K cereal with unsweetened almond milk or 2% milk or fruit, or cucumber water Snack: N/A Lunch: 3:00-4:00pm sandwich (ham or turkey) on white bread, cheese, knapp, tomato or soup (broccoli and cheese or chicken noodle) (canned) Snack: N/A Dinner: 7:00-9:00pm spaghetti or chicken or fish, mashed potatoes, corn Snack: sunchips or cranberry biscuit or yogurt with fruit Beverages: fruit infused water, regular pop (2 cans per day) Physical Activity: Had leg surgery- limited ability to exercise Estimated [place] x 1.2 AF: 1,675 kcals/day for 1lb/week weight loss - - - - - OBJECTIVE: Initial weight/BMI: 250 lbs / 38.57 kg/m2 (03/25/25) - - - - - Nutrition Rx: Plate method; non-starchy vegetables; lean, low sodium protein sources; complex carbohydrates; heart healthy fats Protein/day: 80-90g/day (1.0-1.1 g/kg adj body weight) Nutrition Dx: 1. Obesity related to limited physical activity, inconsistent energy intake/excessi ve carbohydrate intake, food insecurity causing patient to consume low quality foods, and limited access to nutrition education as evidenced by 24-hr recall showing intake beyond needs, reported physical activity below recommendation s, positive screening for food insecurity, and BMI >30 kg/m2. 2. Inadequate nutrient intake (fiber and protein) related to nutrition knowledge deficit as evidenced by 24 hr recall showing intake below recommended amount. - - - - - INTERVENTION: Summary of Visit/Educatio n Provided: a) Overview of FIM program (expectations, box pick ups, etc.) b) Plate method c) Importance of fiber/protein for blood sugar regulation and satiety d) Importance of not skipping meals e) Different types of carbohydrates and how they impact blood sugar Worked with patient to set the following goals: 1) Eating within 2 hours of waking, consume small, frequent meals or snakcs every 3-4 hours 2) Add snack between breakfast and lunch- include a veggie 2 days a week 3) Reduce pop to 1 per day, increase fruit infused water intake - - - - - Other Relevant Information Discussed @ Visit: - Materials Provided: plate method overview, meal timing handout, food bag, snacks to pack for work handout, snacks that include protein handout, snack builder handout, carbohydrate handout, how carbs impact your blood sugar handout - - - - - Monitoring/Anne luation -Weight, total intake, nutrition related lab values - - - - - RD name and contact information provided. Patient with no further nutrition-rela abdias questions at this time. Patient to follow-up with RD on 05/07/25. Patient seen from 11:00 AM to 11:46 AM for a total of 46 minutes spent with patient. Patient to olive picker [employer] box 04/25/25. Seen by Cedrick Mejia MPH, RD, LD. 06/13/2025 Body mass index [BMI] 38.0-38.9, adult (ICD-10 - Z68.38) Pt presents for initial RD visit. Referred by Dr. Jus Lopez challenges: Had hysterectomy on and still recovering successful changes: down to 1 pop per every couple of days, introducing more veggies into diet Nutrition related Dx: E66.9 Obesity, E11.9 DM2, K21.9 GERD, D50.0 Iron deficiency, I10 HTN Nutrition related RX: Adipex and Trulicity (started 6 months ago) Motivators: Per pt report wants to get back to healthy weight, gained weight from leg surgery/not able to be active Weight history: Was around 300# and now 248# (intentional weight loss within last 6 months) Food Allergies/Into lerances: Does not consume alot of milk or ice cream- triggers GERD Dental: Steak (hard to chew) Appetite:Usual ly not hungry throughout the day, gets hungry at night Grocery Shopping: [employer] Household: , son (6) and daughter (9) Cooking: Self Sleep: 4-5 hours per night GI: N/A - - - - - 24-HR Recall: Wake up: 5:15am Breakfast: 6:30-7:00am Special K cereal with unsweetened almond milk or 2% milk or fruit, or cucumber water Snack: N/A Lunch: 3:00-4:00pm sandwich (ham or turkey) on white bread, cheese, knapp, tomato or soup (broccoli and cheese or chicken noodle) (canned) Snack: N/A Dinner: 7:00-9:00pm spaghetti or chicken or fish, mashed potatoes, corn Snack: sunchips or cranberry biscuit or yogurt with fruit Beverages: fruit infused water, regular pop (2 cans per day) Physical Activity: Had leg surgery- limited ability to exercise Estimated [place] x 1.2 AF: 1,675 kcals/day for 1lb/week weight loss - - - - - OBJECTIVE: Initial weight/BMI: 250 lbs / 38.57 kg/m2 (03/25/25) 252.4 (06/04/25) - - - - - Nutrition Rx: Plate method; non-starchy vegetables; lean, low sodium protein sources; complex carbohydrates; heart healthy fats Protein/day: 80-90g/day (1.0-1.1 g/kg adj body weight) Nutrition Dx: 1. Obesity related to limited physical activity, inconsistent energy intake/excessi ve carbohydrate intake, food insecurity causing patient to consume low quality foods, and limited access to nutrition education as evidenced by 24-hr recall showing intake beyond needs, reported physical activity below recommendation s, positive screening for food insecurity, and BMI >30 kg/m2. 2. Inadequate nutrient intake (fiber and protein) related to nutrition knowledge deficit as evidenced by 24 hr recall showing intake below recommended amount. - - - - - INTERVENTION: Summary of Visit/Educatio n Provided: a) Reviewed plate method b) Reviewed importance of fiber/protein for blood sugar regulation and satiety c) Reviewed importance of not skipping meals Worked with patient to set the following goals: 1) Eat within 2 hours of waking, consume small, frequent meals or snakcs every 3-4 hours (in progress) 2) Add snack between breakfast and lunch (in progress) 3) Aim to get protein at every meal and snack - - - - - Other Relevant Information Discussed @ Visit: - Materials Provided: protein sources handout, food bag - - - - - Monitoring/Anne luation -Weight, total intake, nutrition related lab values - - - - - RD name and contact information provided. Patient with no further nutrition-rela abdias questions at this time. Patient to follow-up with RD in 6-8 weeks. Patient seen from 10:47 AM to 11:11 AM for a total of 24 minutes spent with patient. Patient to olive picker [employer] box 06/24/25. Seen by Cedrick Mejia MPH, RD, LD. 07/05/2025 Rheumatoid arthritis involving both hands, unspecified whether rheumatoid factor present (ICD-10 - M06.9) 07/05/2025 Obesity (ICD-10 - E66.9) 06/13/2025 Constipation, unspecified constipation type (ICD-10 - K59.00) Pt presents for initial RD visit. Referred by Dr. Jus Lopez challenges: Had hysterectomy on 12th and still recovering successful changes: down to 1 pop per every couple of days, introducing more veggies into diet Nutrition related Dx: E66.9 Obesity, E11.9 DM2, K21.9 GERD, D50.0 Iron deficiency, I10 HTN Nutrition related RX: Adipex and Trulicity (started 6 months ago) Motivators: Per pt report wants to get back to healthy weight, gained weight from leg surgery/not able to be active Weight history: Was around 300# and now 248# (intentional weight loss within last 6 months) Food Allergies/Into lerances: Does not consume alot of milk or ice cream- triggers GERD Dental: Steak (hard to chew) Appetite:Usual ly not hungry throughout the day, gets hungry at night Grocery Shopping: [employer] Household: , son (6) and daughter (9) Cooking: Self Sleep: 4-5 hours per night GI: N/A - - - - - 24-HR Recall: Wake up: 5:15am Breakfast: 6:30-7:00am Special K cereal with unsweetened almond milk or 2% milk or fruit, or cucumber water Snack: N/A Lunch: 3:00-4:00pm sandwich (ham or turkey) on white bread, cheese, knapp, tomato or soup (broccoli and cheese or chicken noodle) (canned) Snack: N/A Dinner: 7:00-9:00pm spaghetti or chicken or fish, mashed potatoes, corn Snack: sunchips or cranberry biscuit or yogurt with fruit Beverages: fruit infused water, regular pop (2 cans per day) Physical Activity: Had leg surgery- limited ability to exercise Estimated [place] x 1.2 AF: 1,675 kcals/day for 1lb/week weight loss - - - - - OBJECTIVE: Initial weight/BMI: 250 lbs / 38.57 kg/m2 (03/25/25) 252.4 (06/04/25) - - - - - Nutrition Rx: Plate method; non-starchy vegetables; lean, low sodium protein sources; complex carbohydrates; heart healthy fats Protein/day: 80-90g/day (1.0-1.1 g/kg adj body weight) Nutrition Dx: 1. Obesity related to limited physical activity, inconsistent energy intake/excessi ve carbohydrate intake, food insecurity causing patient to consume low quality foods, and limited access to nutrition education as evidenced by 24-hr recall showing intake beyond needs, reported physical activity below recommendation s, positive screening for food insecurity, and BMI >30 kg/m2. 2. Inadequate nutrient intake (fiber and protein) related to nutrition knowledge deficit as evidenced by 24 hr recall showing intake below recommended amount. - - - - - INTERVENTION: Summary of Visit/Educatio n Provided: a) Reviewed plate method b) Reviewed importance of fiber/protein for blood sugar regulation and satiety c) Reviewed importance of not skipping meals Worked with patient to set the following goals: 1) Eat within 2 hours of waking, consume small, frequent meals or snakcs every 3-4 hours (in progress) 2) Add snack between breakfast and lunch (in progress) 3) Aim to get protein at every meal and snack - - - - - Other Relevant Information Discussed @ Visit: - Materials Provided: protein sources handout, food bag - - - - - Monitoring/Anne luation -Weight, total intake, nutrition related lab values - - - - - RD name and contact information provided. Patient with no further nutrition-rela abdias questions at this time. Patient to follow-up with RD in 6-8 weeks. Patient seen from 10:47 AM to 11:11 AM for a total of 24 minutes spent with patient. Patient to olive pick[employer] box 06/24/25. Seen by Cedrick Mejia MPH, RD, LD. 04/04/2025 Constipation, unspecified constipation type (ICD-10 - K59.00) Pt presents for initial RD visit. Referred by Dr. Jus Lopez Nutrition related Dx: E66.9 Obesity, E11.9 DM2, K21.9 GERD, D50.0 Iron deficiency, I10 HTN Nutrition related RX: Adipex and Trulicity (started 6 months ago) Motivators: Per pt report wants to get back to healthy weight, gained weight from leg surgery/not able to be active Weight history: Was around 300# and now 248# (intentional weight loss within last 6 months) Food Allergies/Into lerances: Does not consume alot of milk or ice cream- triggers GERD Dental: Steak (hard to chew) Appetite:Usual ly not hungry throughout the day, gets hungry at night Grocery Shopping: [employer] Household: , son (6) and daughter (9) Cooking: Self Sleep: 4-5 hours per night GI: N/A - - - - - 24-HR Recall: Wake up: 5:15am Breakfast: 6:30-7:00am Special K cereal with unsweetened almond milk or 2% milk or fruit, or cucumber water Snack: N/A Lunch: 3:00-4:00pm sandwich (ham or turkey) on white bread, cheese, knapp, tomato or soup (broccoli and cheese or chicken noodle) (canned) Snack: N/A Dinner: 7:00-9:00pm spaghetti or chicken or fish, mashed potatoes, corn Snack: sunchips or cranberry biscuit or yogurt with fruit Beverages: fruit infused water, regular pop (2 cans per day) Physical Activity: Had leg surgery- limited ability to exercise Estimated [place] x 1.2 AF: 1,675 kcals/day for 1lb/week weight loss - - - - - OBJECTIVE: Initial weight/BMI: 250 lbs / 38.57 kg/m2 (03/25/25) - - - - - Nutrition Rx: Plate method; non-starchy vegetables; lean, low sodium protein sources; complex carbohydrates; heart healthy fats Protein/day: 80-90g/day (1.0-1.1 g/kg adj body weight) Nutrition Dx: 1. Obesity related to limited physical activity, inconsistent energy intake/excessi ve carbohydrate intake, food insecurity causing patient to consume low quality foods, and limited access to nutrition education as evidenced by 24-hr recall showing intake beyond needs, reported physical activity below recommendation s, positive screening for food insecurity, and BMI >30 kg/m2. 2. Inadequate nutrient intake (fiber and protein) related to nutrition knowledge deficit as evidenced by 24 hr recall showing intake below recommended amount. - - - - - INTERVENTION: Summary of Visit/Educatio n Provided: a) Overview of FIM program (expectations, box pick ups, etc.) b) Plate method c) Importance of fiber/protein for blood sugar regulation and satiety d) Importance of not skipping meals e) Different types of carbohydrates and how they impact blood sugar Worked with patient to set the following goals: 1) Eating within 2 hours of waking, consume small, frequent meals or snakcs every 3-4 hours 2) Add snack between breakfast and lunch- include a veggie 2 days a week 3) Reduce pop to 1 per day, increase fruit infused water intake - - - - - Other Relevant Information Discussed @ Visit: - Materials Provided: plate method overview, meal timing handout, food bag, snacks to pack for work handout, snacks that include protein handout, snack builder handout, carbohydrate handout, how carbs impact your blood sugar handout - - - - - Monitoring/Anne luation -Weight, total intake, nutrition related lab values - - - - - RD name and contact information provided. Patient with no further nutrition-rela abdias questions at this time. Patient to follow-up with RD on 05/07/25. Patient seen from 11:00 AM to 11:46 AM for a total of 46 minutes spent with patient. Patient to olive picker [employer] box 04/25/25. Seen by Cedrick Mejia MPH, RD, LD. 03/25/2025 Fibromyalgia (ICD-10 - M79.7) 07/23/2024 Body mass index [BMI] 39.0-39.9, adult (ICD-10 - Z68.39) 07/23/2024 Thrush, oral (ICD-10 - B37.0) 03/25/2025 Preventative health care (ICD-10 - Z00.00) 04/04/2025 Essential (primary) hypertension (ICD-10 - I10) Pt presents for initial RD visit. Referred by Dr. Jus Lopez Nutrition related Dx: E66.9 Obesity, E11.9 DM2, K21.9 GERD, D50.0 Iron deficiency, I10 HTN Nutrition related RX: Adipex and Trulicity (started 6 months ago) Motivators: Per pt report wants to get back to healthy weight, gained weight from leg surgery/not able to be active Weight history: Was around 300# and now 248# (intentional weight loss within last 6 months) Food Allergies/Into lerances: Does not consume alot of milk or ice cream- triggers GERD Dental: Steak (hard to chew) Appetite:Usual ly not hungry throughout the day, gets hungry at night Grocery Shopping: [employer] Household: , son (6) and daughter (9) Cooking: Self Sleep: 4-5 hours per night GI: N/A - - - - - 24-HR Recall: Wake up: 5:15am Breakfast: 6:30-7:00am Special K cereal with unsweetened almond milk or 2% milk or fruit, or cucumber water Snack: N/A Lunch: 3:00-4:00pm sandwich (ham or turkey) on white bread, cheese, knapp, tomato or soup (broccoli and cheese or chicken noodle) (canned) Snack: N/A Dinner: 7:00-9:00pm spaghetti or chicken or fish, mashed potatoes, corn Snack: sunchips or cranberry biscuit or yogurt with fruit Beverages: fruit infused water, regular pop (2 cans per day) Physical Activity: Had leg surgery- limited ability to exercise Estimated [place] x 1.2 AF: 1,675 kcals/day for 1lb/week weight loss - - - - - OBJECTIVE: Initial weight/BMI: 250 lbs / 38.57 kg/m2 (03/25/25) - - - - - Nutrition Rx: Plate method; non-starchy vegetables; lean, low sodium protein sources; complex carbohydrates; heart healthy fats Protein/day: 80-90g/day (1.0-1.1 g/kg adj body weight) Nutrition Dx: 1. Obesity related to limited physical activity, inconsistent energy intake/excessi ve carbohydrate intake, food insecurity causing patient to consume low quality foods, and limited access to nutrition education as evidenced by 24-hr recall showing intake beyond needs, reported physical activity below recommendation s, positive screening for food insecurity, and BMI >30 kg/m2. 2. Inadequate nutrient intake (fiber and protein) related to nutrition knowledge deficit as evidenced by 24 hr recall showing intake below recommended amount. - - - - - INTERVENTION: Summary of Visit/Educatio n Provided: a) Overview of FIM program (expectations, box pick ups, etc.) b) Plate method c) Importance of fiber/protein for blood sugar regulation and satiety d) Importance of not skipping meals e) Different types of carbohydrates and how they impact blood sugar Worked with patient to set the following goals: 1) Eating within 2 hours of waking, consume small, frequent meals or snakcs every 3-4 hours 2) Add snack between breakfast and lunch- include a veggie 2 days a week 3) Reduce pop to 1 per day, increase fruit infused water intake - - - - - Other Relevant Information Discussed @ Visit: - Materials Provided: plate method overview, meal timing handout, food bag, snacks to pack for work handout, snacks that include protein handout, snack builder handout, carbohydrate handout, how carbs impact your blood sugar handout - - - - - Monitoring/Anne luation -Weight, total intake, nutrition related lab values - - - - - RD name and contact information provided. Patient with no further nutrition-rela abdias questions at this time. Patient to follow-up with RD on 05/07/25. Patient seen from 11:00 AM to 11:46 AM for a total of 46 minutes spent with patient. Patient to [facility] [employer] box 04/25/25. Seen by Cedrick Mejia MPH, RD, LD. 06/13/2025 Essential (primary) hypertension (ICD-10 - I10) Pt presents for initial RD visit. Referred by Dr. Jus Lopez challenges: Had hysterectomy on 12th and still recovering successful changes: down to 1 pop per every couple of days, introducing more veggies into diet Nutrition related Dx: E66.9 Obesity, E11.9 DM2, K21.9 GERD, D50.0 Iron deficiency, I10 HTN Nutrition related RX: Adipex and Trulicity (started 6 months ago) Motivators: Per pt report wants to get back to healthy weight, gained weight from leg surgery/not able to be active Weight history: Was around 300# and now 248# (intentional weight loss within last 6 months) Food Allergies/Into lerances: Does not consume alot of milk or ice cream- triggers GERD Dental: Steak (hard to chew) Appetite:Usual ly not hungry throughout the day, gets hungry at night Grocery Shopping: [employer] Household: , son (6) and daughter (9) Cooking: Self Sleep: 4-5 hours per night GI: N/A - - - - - 24-HR Recall: Wake up: 5:15am Breakfast: 6:30-7:00am Special K cereal with unsweetened almond milk or 2% milk or fruit, or cucumber water Snack: N/A Lunch: 3:00-4:00pm sandwich (ham or turkey) on white bread, cheese, knapp, tomato or soup (broccoli and cheese or chicken noodle) (canned) Snack: N/A Dinner: 7:00-9:00pm spaghetti or chicken or fish, mashed potatoes, corn Snack: sunchips or cranberry biscuit or yogurt with fruit Beverages: fruit infused water, regular pop (2 cans per day) Physical Activity: Had leg surgery- limited ability to exercise Estimated [place] x 1.2 AF: 1,675 kcals/day for 1lb/week weight loss - - - - - OBJECTIVE: Initial weight/BMI: 250 lbs / 38.57 kg/m2 (03/25/25) 252.4 (06/04/25) - - - - - Nutrition Rx: Plate method; non-starchy vegetables; lean, low sodium protein sources; complex carbohydrates; heart healthy fats Protein/day: 80-90g/day (1.0-1.1 g/kg adj body weight) Nutrition Dx: 1. Obesity related to limited physical activity, inconsistent energy intake/excessi ve carbohydrate intake, food insecurity causing patient to consume low quality foods, and limited access to nutrition education as evidenced by 24-hr recall showing intake beyond needs, reported physical activity below recommendation s, positive screening for food insecurity, and BMI >30 kg/m2. 2. Inadequate nutrient intake (fiber and protein) related to nutrition knowledge deficit as evidenced by 24 hr recall showing intake below recommended amount. - - - - - INTERVENTION: Summary of Visit/Educatio n Provided: a) Reviewed plate method b) Reviewed importance of fiber/protein for blood sugar regulation and satiety c) Reviewed importance of not skipping meals Worked with patient to set the following goals: 1) Eat within 2 hours of waking, consume small, frequent meals or snakcs every 3-4 hours (in progress) 2) Add snack between breakfast and lunch (in progress) 3) Aim to get protein at every meal and snack - - - - - Other Relevant Information Discussed @ Visit: - Materials Provided: protein sources handout, food bag - - - - - Monitoring/Anne luation -Weight, total intake, nutrition related lab values - - - - - RD name and contact information provided. Patient with no further nutrition-rela abdias questions at this time. Patient to follow-up with RD in 6-8 weeks. Patient seen from 10:47 AM to 11:11 AM for a total of 24 minutes spent with patient. Patient to [facility] [employer] box 06/24/25. Seen by Cedrick Mejia MPH, RD, LD. 04/04/2025 Anemia due to vitamin B12 deficiency, unspecified B12 deficiency type (ICD-10 - D51.9) Pt presents for initial RD visit. Referred by Dr. Jus Lopez Nutrition related Dx: E66.9 Obesity, E11.9 DM2, K21.9 GERD, D50.0 Iron deficiency, I10 HTN Nutrition related RX: Adipex and Trulicity (started 6 months ago) Motivators: Per pt report wants to get back to healthy weight, gained weight from leg surgery/not able to be active Weight history: Was around 300# and now 248# (intentional weight loss within last 6 months) Food Allergies/Into lerances: Does not consume alot of milk or ice cream- triggers GERD Dental: Steak (hard to chew) Appetite:Usual ly not hungry throughout the day, gets hungry at night Grocery Shopping: [employer] Household: , son (6) and daughter (9) Cooking: Self Sleep: 4-5 hours per night GI: N/A - - - - - 24-HR Recall: Wake up: 5:15am Breakfast: 6:30-7:00am Special K cereal with unsweetened almond milk or 2% milk or fruit, or cucumber water Snack: N/A Lunch: 3:00-4:00pm sandwich (ham or turkey) on white bread, cheese, knapp, tomato or soup (broccoli and cheese or chicken noodle) (canned) Snack: N/A Dinner: 7:00-9:00pm spaghetti or chicken or fish, mashed potatoes, corn Snack: sunchips or cranberry biscuit or yogurt with fruit Beverages: fruit infused water, regular pop (2 cans per day) Physical Activity: Had leg surgery- limited ability to exercise Estimated [place] x 1.2 AF: 1,675 kcals/day for 1lb/week weight loss - - - - - OBJECTIVE: Initial weight/BMI: 250 lbs / 38.57 kg/m2 (03/25/25) - - - - - Nutrition Rx: Plate method; non-starchy vegetables; lean, low sodium protein sources; complex carbohydrates; heart healthy fats Protein/day: 80-90g/day (1.0-1.1 g/kg adj body weight) Nutrition Dx: 1. Obesity related to limited physical activity, inconsistent energy intake/excessi ve carbohydrate intake, food insecurity causing patient to consume low quality foods, and limited access to nutrition education as evidenced by 24-hr recall showing intake beyond needs, reported physical activity below recommendation s, positive screening for food insecurity, and BMI >30 kg/m2. 2. Inadequate nutrient intake (fiber and protein) related to nutrition knowledge deficit as evidenced by 24 hr recall showing intake below recommended amount. - - - - - INTERVENTION: Summary of Visit/Educatio n Provided: a) Overview of FIM program (expectations, box pick ups, etc.) b) Plate method c) Importance of fiber/protein for blood sugar regulation and satiety d) Importance of not skipping meals e) Different types of carbohydrates and how they impact blood sugar Worked with patient to set the following goals: 1) Eating within 2 hours of waking, consume small, frequent meals or snakcs every 3-4 hours 2) Add snack between breakfast and lunch- include a veggie 2 days a week 3) Reduce pop to 1 per day, increase fruit infused water intake - - - - - Other Relevant Information Discussed @ Visit: - Materials Provided: plate method overview, meal timing handout, food bag, snacks to pack for work handout, snacks that include protein handout, snack builder handout, carbohydrate handout, how carbs impact your blood sugar handout - - - - - Monitoring/Anne luation -Weight, total intake, nutrition related lab values - - - - - RD name and contact information provided. Patient with no further nutrition-rela abdias questions at this time. Patient to follow-up with RD on 05/07/25. Patient seen from 11:00 AM to 11:46 AM for a total of 46 minutes spent with patient. Patient to olive pick[facility] [employer] box 04/25/25. Seen by Cedrick Mejia MPH, RD, LD. 06/13/2025 Anemia due to vitamin B12 deficiency, unspecified B12 deficiency type (ICD-10 - D51.9) Pt presents for initial RD visit. Referred by Dr. Jus Lopez challenges: Had hysterectomy on and still recovering successful changes: down to 1 pop per every couple of days, introducing more veggies into diet Nutrition related Dx: E66.9 Obesity, E11.9 DM2, K21.9 GERD, D50.0 Iron deficiency, I10 HTN Nutrition related RX: Adipex and Trulicity (started 6 months ago) Motivators: Per pt report wants to get back to healthy weight, gained weight from leg surgery/not able to be active Weight history: Was around 300# and now 248# (intentional weight loss within last 6 months) Food Allergies/Into lerances: Does not consume alot of milk or ice cream- triggers GERD Dental: Steak (hard to chew) Appetite:Usual ly not hungry throughout the day, gets hungry at night Grocery Shopping: [employer] Household: , son (6) and daughter (9) Cooking: Self Sleep: 4-5 hours per night GI: N/A - - - - - 24-HR Recall: Wake up: 5:15am Breakfast: 6:30-7:00am Special K cereal with unsweetened almond milk or 2% milk or fruit, or cucumber water Snack: N/A Lunch: 3:00-4:00pm sandwich (ham or turkey) on white bread, cheese, knapp, tomato or soup (broccoli and cheese or chicken noodle) (canned) Snack: N/A Dinner: 7:00-9:00pm spaghetti or chicken or fish, mashed potatoes, corn Snack: sunchips or cranberry biscuit or yogurt with fruit Beverages: fruit infused water, regular pop (2 cans per day) Physical Activity: Had leg surgery- limited ability to exercise Estimated [place] x 1.2 AF: 1,675 kcals/day for 1lb/week weight loss - - - - - OBJECTIVE: Initial weight/BMI: 250 lbs / 38.57 kg/m2 (03/25/25) 252.4 (06/04/25) - - - - - Nutrition Rx: Plate method; non-starchy vegetables; lean, low sodium protein sources; complex carbohydrates; heart healthy fats Protein/day: 80-90g/day (1.0-1.1 g/kg adj body weight) Nutrition Dx: 1. Obesity related to limited physical activity, inconsistent energy intake/excessi ve carbohydrate intake, food insecurity causing patient to consume low quality foods, and limited access to nutrition education as evidenced by 24-hr recall showing intake beyond needs, reported physical activity below recommendation s, positive screening for food insecurity, and BMI >30 kg/m2. 2. Inadequate nutrient intake (fiber and protein) related to nutrition knowledge deficit as evidenced by 24 hr recall showing intake below recommended amount. - - - - - INTERVENTION: Summary of Visit/Educatio n Provided: a) Reviewed plate method b) Reviewed importance of fiber/protein for blood sugar regulation and satiety c) Reviewed importance of not skipping meals Worked with patient to set the following goals: 1) Eat within 2 hours of waking, consume small, frequent meals or snakcs every 3-4 hours (in progress) 2) Add snack between breakfast and lunch (in progress) 3) Aim to get protein at every meal and snack - - - - - Other Relevant Information Discussed @ Visit: - Materials Provided: protein sources handout, food bag - - - - - Monitoring/Anne luation -Weight, total intake, nutrition related lab values - - - - - RD name and contact information provided. Patient with no further nutrition-rela abdias questions at this time. Patient to follow-up with RD in 6-8 weeks. Patient seen from 10:47 AM to 11:11 AM for a total of 24 minutes spent with patient. Patient to olive pick[facility] [employer] box 06/24/25. Seen by Cedrick Mejia MPH, RD, LD. 03/25/2025 Constipation, unspecified constipation type (ICD-10 - K59.00) 03/25/2025 Unable to lose weight (ICD-10 - R63.8) 08/22/2024 Other Body Mass Index : Care Instructions material was published 12/13/2024 Other Body Mass Index : Care Instructions material was published 03/25/2025 Other Body Mass Index : Care Instructions material was published 06/04/2025 Other Body Mass Index : Care Instructions material was published 07/05/2025 Other Body Mass Index : Care Instructions material was published Plan Of Treatment Next Appt Details Provider Name:Cedrick Rice , 08/20/2025 09:00:00 AM, [address], [address], [place], [address], Provider Name:Marquise Benjamin, 1 12/01/2024 09:55:00 AM, [address], [place], [address], Provider Name:Marquise Benjamin, 1 12/07/2024 09:00:00 AM, [address], [place], [address], Provider Name:Marquise Benjamin, 1 12/15/2024 09:20:00 AM, [address], [place], [address], Provider Name:John leigh, 10/17/2025 10:45:00 AM, [address], [place], [address], Insurance Providers Payer Name Payer Address Payer Phone Subscriber Number Group Number Insured Name Patient Relationship to Insured Coverage Start Date Coverage End Date MEDICARE CGS 1 [employer] [facility] [place] [address] [id number] BABB LOY Self - patient is the insured 3 B MEDICAID SEC TO [facility] [address] [place] [address] [id number] BABB ALFREDKAREN Self - patient is the insured 3 [employer] [place] Medicaid [address] [place] [address] [phone] [id number] BABB ALFREDKAREN Self - patient is the insured 3 [address] [facility] [address] [place] [address] [id number] BABB , ALFREDKAREN Self - patient is the insured 3 4 [employer] [place] Medicaid [address] [place] [address] [id number] BABB , AEKAREN Self - patient is the insured 3 4 [employer] MEDICAID [place] [address] [place] [address] [id number] HOLLEY ALFREDKAREN Self - patient is the insured 3 [facility] MEDICAID SEC TO [facility] [address] [place] [address] [id number] BABB , ALFREDKAREN Self - patient is the insured 4 Medications Administered Medication Instructions Date of Administration Dosage Notes xxxxcyanocobalamin 1000mcg/ml 12/05/2020 1 mL xxxxcyanocobalamin 1000mcg/ml 12/12/2020 1 mL Medical (General) History Medical History History ICD Code asthma Heel spurs knee pain diabetes GERD depression carpal tunnel syndrome Surgical History Surgery Date(Month/Year) gall bladder removed 1998 right achilles repair 12/2016 Left achilles repair 02/2018 LEFT HEEL/ANKLE 08/2020 LEFT CARPAL TUNNEL 12/2020 SKIN GRAFT 02/2021 Skin Graft 11/2022 hysterectomy- ovaries remain 05/09/2025 Hospitalization History Reason Date(Month/Year) SUrgeries 11/2022 LT Sprained Ankle 2019 Child births [birth year] & 2016 Gall bladder 1999
--- NOTE | 2025-07-11 10:38 | PM.CN ---
Consult Note: HPI Data of Consult Patient: known to practice within the last 3 years Requesting Physician: Shonda Jeffery NP Primary Care Provider: [facility] Consult Narrative Reason for consult: f/u Narrative: 44yof who presents for assessment. she notes persistence of significant left lower extremity pain as a consequence of her 33+ foot surgeries. states that she is trying to avoid any further surgeries, if at all possible. has been able to work, but still has significant left foot pain secondary to CRPS. failed tylenol and nsaids. utilizes percocet and mobic which provides some relief. has undergone a variety of physical therapy sessions, with minimal lasting benefit. denies adverse med side effects. previous left lumbar sympathetic block x2 resulted in 0% improvement. continues to f/u with podiatry. since last visit had a potential sickle cell crisis, as well as blood clots to LLE. pending further workup with heme/onc and rheumatology. cc:: CC: Shonda Jeffery NP Review of Systems ROS Status of ROS 10 or more systems reviewed and unremarkable except as noted in history and below [facility] Medical History History of blood transfusion ?Z92.89 - Personal history of other medical treatment (ICD-10) Syncope (2022) ?R55 - Syncope and collapse (ICD-10) Syncope anginosa ?I20.89 - Other forms of angina pectoris (ICD-10) Diabetes ?E11.9 - Type 2 diabetes mellitus without complications (ICD-10) Postoperative nausea and vomiting ?R11.2 - Nausea with vomiting, unspecified (ICD-10) ?Z98.890 - Other specified postprocedural states (ICD-10) Equinus contracture of ankle ?M24.573 - Contracture, unspecified ankle (ICD-10) Chronic osteomyelitis ?M86.60 - Other chronic osteomyelitis, unspecified site (ICD-10) Eczema ?L30.9 - Dermatitis, unspecified (ICD-10) Varicose vein of leg ?I83.90 - Asymptomatic varicose veins of unspecified lower extremity (ICD-10) Neuropathy ?G62.9 - Polyneuropathy, unspecified (ICD-10) Fibromyalgia ?M79.7 - Fibromyalgia (ICD-10) Calcaneal spur ?M77.30 - Calcaneal spur, unspecified foot (ICD-10) Arthritis ?M19.90 - Unspecified osteoarthritis, unspecified site (ICD-10) Pain of left lower extremity ?M79.605 - Pain in left leg (ICD-10) 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 ?G57.32 - Lesion of lateral popliteal nerve, left lower limb (ICD-10) DVT (deep venous thrombosis) (~2020) ?I82.409 - Acute embolism and thrombosis of unspecified deep veins of unspecified lower extremity (ICD-10) Compartment syndrome ?T79.A0XA - Compartment syndrome, unspecified, initial encounter (ICD-10) Plantar fasciitis ?M72.2 - Plantar fascial fibromatosis (ICD-10) Carpal tunnel syndrome ?G56.00 - Carpal tunnel syndrome, unspecified upper limb (ICD-10) Prediabetes ?R73.03 - Prediabetes (ICD-10) Achilles tendinitis ?M76.60 - Achilles tendinitis, unspecified leg (ICD-10) Complex regional pain syndrome of left lower extremity ?G90.522 - Complex regional pain syndrome I of left lower limb (ICD-10) Anxiety ?F41.9 - Anxiety disorder, unspecified (ICD-10) Osteoarthritis ?M19.90 - Unspecified osteoarthritis, unspecified site (ICD-10) Low back pain ?M54.50 - Low back pain, unspecified (ICD-10) Anemia ?D64.9 - Anemia, unspecified (ICD-10) Obesity ?E66.9 - Obesity, unspecified (ICD-10) Acid reflux ?K21.9 - Gastro-esophageal reflux disease without esophagitis (ICD-10) Asthma ?J45.909 - Unspecified asthma, uncomplicated (ICD-10) Hypertension ?I10 - Essential (primary) hypertension (ICD-10) Surgical History S/P epidural steroid injection ?Z92.241 - Personal history of systemic steroid therapy (ICD-10) History of cholecystectomy (1998) ?Z90.49 - Acquired absence of other specified parts of digestive tract (ICD-10) History of carpal tunnel release ?Z98.890 - Other specified postprocedural states (ICD-10) H/O tubal ligation (12/08/18) ?Z98.51 - Tubal ligation status (ICD-10) History of ankle surgery ?Z98.890 - Other specified postprocedural states (ICD-10) H/O foot surgery ?Z98.890 - Other specified postprocedural states (ICD-10) H/O carpal tunnel repair ?Z98.890 - Other specified postprocedural states (ICD-10) History of delivery ?Z98.891 - History of uterine scar from previous surgery (ICD-10) Family History Other Family history of diabetes mellitus Family history of myocardial infarction Family history of stroke Heart disease Lymphoma Social History Within the past year, how often did you have a drink containing alcohol: monthly or less Smoking status: Former smoker Non-prescribed substance use: denies use 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 Highest level of school completed/degree received: high school graduate Meds Home Medications and Allergies Home Medications ?Medication ?Instructions ?Recorded ?Confirmed ?Type ascorbic acid (vitamin C) 500 mg 500 mg PO BID 05/06/23 10/04/24 History tablet aspirin 325 mg tablet 325 mg PO DAILY 05/06/23 10/08/24 History ferrous sulfate 325 mg (65 mg 325 mg PO DAILY 05/06/23 10/08/24 History iron) tablet hydroxyzine pamoate 25 mg capsule 25 mg PO TID 05/06/23 10/08/24 History lidocaine 5 % topical kit 1 applic topical DAILY 05/06/23 10/08/24 History promethazine 25 mg tablet 25 mg PO Q12H PRN nausea and 05/06/23 10/08/24 History vomiting pyridoxine (vitamin B6) 100 mg 100 mg PO BID 05/06/23 10/08/24 History tablet vitamin B complex (B 1 tab PO DAILY 05/06/23 10/08/24 History Complex-Vitamin B12 tablet) oxycodone-acetaminophen 5 mg-325 1 tab PO QID PRN pain #120 tabs 07/25/24 10/08/24 Rx mg tablet (Percocet) amlodipine 5 mg-olmesartan 20 mg 1 tab PO DAILY 10/04/24 10/08/24 History tablet dulaglutide 3 mg/0.5 mL 3 mg subcut QWEEK 10/04/24 10/08/24 History subcutaneous pen injector (Trulicity) meloxicam 15 mg tablet 15 mg PO DAILY 10/04/24 10/08/24 History omeprazole 20 mg capsule,delayed 20 mg PO DAILY 10/04/24 10/08/24 History release phentermine 37.5 mg tablet 37.5 mg PO DAILY 10/04/24 10/04/24 History tizanidine 4 mg capsule 4 mg PO BID 10/04/24 10/08/24 History oxycodone-acetaminophen 5 mg-325 1 tab PO QID PRN pain #120 tabs 10/15/24 Rx mg tablet (Percocet) naloxone 4 mg/actuation nasal 4 mg intranasal Q2M PRN opioid 10/17/24 Rx spray (Narcan) overdose #2 ea oxycodone-acetaminophen 5 mg-325 1 tab PO QID PRN pain #120 tabs 11/15/24 Rx mg tablet (Percocet) oxycodone-acetaminophen 5 mg-325 1 tab PO QID PRN pain #120 tabs 12/19/24 Rx mg tablet (Percocet) oxycodone-acetaminophen 5 mg-325 1 tab PO QID PRN pain #120 tabs 01/21/25 Rx mg tablet (Percocet) oxycodone-acetaminophen 5 mg-325 1 tab PO QID PRN pain #120 tabs 02/14/25 Rx mg tablet (Percocet) oxycodone-acetaminophen 5 mg-325 1 tab PO QID PRN pain #120 tabs 03/15/25 Rx mg tablet (Percocet) oxycodone-acetaminophen 5 mg-325 1 tab PO QID PRN pain #120 tabs 04/19/25 Rx mg tablet (Percocet) oxycodone-acetaminophen 5 mg-325 1 tab PO QID PRN pain #120 tabs 05/17/25 Rx mg tablet (Percocet) oxycodone-acetaminophen 5 mg-325 1 tab PO QID PRN pain #120 tabs 06/17/25 Rx mg tablet (Percocet) Allergies Allergy/AdvReac Type Severity Reaction Status Date / Time naproxen (From Naprosyn) Allergy Mild Hives Verified 10/08/24 11:04 scallops Allergy edema Verified 10/08/24 11:04 ondansetron (From Zofran) AdvReac Intermediate edema Verified 10/08/24 11:04 cyclobenzaprine (From AdvReac Mild Vomiting Verified 10/08/24 11:04 Flexeril) Exam Narrative Exam Narrative: Psych-alert and oriented x 3.? Attentive and appropriate, constitutionally normal, displays normal mood and affect per situation.? There are no obvious deficits in memory, reasoning, or intellect. Examination of the left lower extremity reveals notable hyperpathia and allodynia.? Notable atrophy and diffuse weakness present in the extremity.? There is notable shiny skin with hair loss and abnormal hair growth denoting trophic changes presently.? Asymmetric color and temperature changes are present which denotes sudomotor changes.? Decreased range of motion and strength is noted in the extremity.? Coordination remains intact.? Gait remains non-antalgic. Assessment and Plan Assessment and Plan (1) Complex regional pain syndrome type 1 affecting left lower leg: (2) Chronic prescription opiate use: Assessment and Plan: I feel these medications are improving the patient's quality of life and allow them to tolerate activities of daily living as well as participate in recreational activity.? The patient does not report intolerable side effects. The patient is NOT opioid naive and non-pharmacologic and non-opioid treatment has failed to significantly relieve the patient's pain and improve functionality. The patient has a diagnosis that is related to a somatic or visceral pain etiology. ? ?? I reviewed with the patient the potential risks and side effects with the use of? opioid medications including but not limited to respiratory depression,? sedation, and even . Within the last 12 months I have verified the patient has access to naloxone should? these effects occur. The patient was advised to let? their family know they had Naloxone in case they would need to administer? the medication. I advised the patient to avoid the use of any other? sedation substances including alcohol, THC, and benzodiazepines while? taking opioid medications due to the risk of compounding side effects and? detrimental outcomes. 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 ?? A drug screen was completed within the last year, and no aberrancies were noted regarding their use of controlled substances. The patient understands they are subject to the terms and conditions of the pain contract that they have signed. ? ?? I have checked an [place] report on this patient today and there are no aberrancies noted in the prescribing history.? Plan 44yof who presents for assessment. failed conservative measures, as noted. pending evaluation with NS Dr Genao once cleared by heme/onc. did not receive transdermal therapeutics cream since last visit, phone number provided for pt today. at this time with pt noting moderate pain relief and functional improvement with standing, walking, housework for 4-6 hours at a time will continue current medications. risks vs benefits reviewed. consider butrans in the future. f/u 3 months, sooner if needed
== END 2025-07-11 10:12 | disposition home or self-care (01) ==
LOC: PM 10:11
PROVIDERS: Visit Provider Nurse Practitioner
DX: G90.522 Complex regional pain syndrome I of left lower limb (principal); Z79.891 Long term (current) use of opiate analgesic
CPT/HCPCS: G0463

== ENCOUNTER 2025-08-07 10:09 | Outpatient (OUT) | payer MEDICARE, MEDICAID, SELFPAY ==
--- OUTSIDE RECORDS SUMMARY | 2024-06-12 10:00 | XMS_ITS ---
Author Organization The [facility] in [place] Address [address] [place] [address] Care Team Providers Care Conference Center Coordinator Name Role Phone None, Unknown or Primary Care Provider UnavailAbner Jackman [phone] Allergies Allergen (clinical drug ingredient) Drug/Non Drug [...] Encounters Encounter Location Date Provider Diagnosis [facility] (PODIATRY) [address] [place] [address] [place] [address] 06/12/2024 Peter Radha Pain in left foot [...] * Azucena HASTINGSaDOB:[birth year] (43 yo F)Acc No.[id number]:06/12/2024 Follow Up Patient: Loy RIOS Provider: Tho Garcia DPM MS :1980 A ge:43 Y S ex:Female Date:06/12/2024 Address:[address] [place] [address] [id number] Pcp:Unknown or None Check In:01:55 PM ESTCheck [...] 06/12/2024 Generated for Baljit tian/Mercedes/Siobhansmitting on: 0 08/07/2025 10:13 AM EDT History and Physical Notes * [...]
--- OUTSIDE RECORDS SUMMARY | 2024-06-26 09:45 | XMS_ITS ---
Author Organization The [facility] in [place] Address [address] [place] [address] Care Team Providers Care Janitor Head Name Role Phone None, Unknown or Primary Care Provider UnavailAbner Jackman [phone] Allergies Allergen (clinical drug ingredient) Drug/Non Drug [...] Encounters Encounter Location Date Provider Diagnosis [facility] (PODIATRY) [address] [place] [address] [place] [address] 06/26/2024 Abner Garcia Pain in left foot [...] * Azucena HASTINGSaDOB:[birth year] (43 yo F)Acc No.[id number]:06/26/2024 Follow Up Patient: Loy RIOS Provider: Tho Garcia DPM, MS :1980 A ge:43 Y S ex:Female Date:06/26/2024 Address:[address] [place], [place] [address], [id number] Pcp:Unknown or None Check In:01:41 PM ESTCheck [...] 06/26/2024 Generated for Baljit tian/Mercedes/Kingsitting on: 0 08/07/2025 10:14 AM EDT History and Physical Notes [...]
--- OUTSIDE RECORDS SUMMARY | 2025-05-28 06:30 | XMS_ITS ---
Author Organization [facility] es Address [address] [place] [address] Care Team Providers Care Body Fitter Name Role Phone John Luu Primary Care Provider [phone] Dr. Marquise Morales [facility] [phone] REASON FOR VISIT FILLING Social History Sex Assigned At : Social History Observation Description Sex Assigned At Female Encounters Encounter Location Date Provider Diagnosis [place] [address] [address] [place] [address] 2024 Marquise Benjamin Plan Of Treatment Next Appt Details Provider Name:Cedrick Rice er, 08/20/2025 09:00:00 AM, [address] [place] [place], [address], Provider Name:Marquise Benjamin, 1 12/01/2024 09:55:00 AM, [address] [place], [address], Provider Name:Marquise Benjamin, 1 12/07/2024 09:00:00 AM, [address] [place], [address], Provider Name:Marquise Benjamin, 1 12/15/2024 09:20:00 AM, [address] [place], [address], Provider Name:John leigh, 10/17/2025 10:45:00 AM, [address], [place], [address], Progress Notes * PEREZ BABB NDOB:1980 (44 yo F)Acc No.[id number]:05/28/2025 Patient: PEREZ RIOS Provider: Irineo Benjamin DDS :1980 A ge:44 Y S ex:Female Date:05/28/2025 Address:[address] [place] [address] [place] , [id number] Pcp:John Luu Subjective: * Chief Complaints: * 1 . FILLING. * Medical History: Objective: * Vitals: Assessment: Plan: * Treatment: * Images: * Electronic signature of Dr. Marquise Benjamin , DMD on 08/07/2025 at 10:13 AM EDT Sign off status: Pending * Provider: Irineo Benjamin DDS Date: 05/28/2025 Generated for Baljit tian/Mercedes/eTransmitting on: 08/07/2025 10:13 AM EDT
--- OUTSIDE RECORDS SUMMARY | 2025-08-07 10:12 | XMS_ITS | Encounter Summary ---
Author Organization [facility] Address [address] [place] [address] Care Team Providers Care Belt Sewer Name Role Phone Lars Lucas DO Primary Care Provider [phone] Jus Lopez MD Primary Care Provider [phone] Encounter Details Date Type Department Care Team (Late st Contact Info) Description 03/21/2025 Abstract CLAUDINE LÓPEZ [address] [facility] [address] [place] [phone] Clyde Aguilera DO [address] [facility] [address] [place] [address] Social History Tobacco Use Types Packs/Day Years [...] LÓPEZ [address] [place] [address] Mariana David MD [address] [place] [address] documented as of this encounter Visit Diagnoses Not on filedocumented in this encounter Care Teams Belt Sewer Relationship Specialty Start Date End Date Lars Lucas DO PCP - General 07/13/23 06/05/25 Jus Lopez MD [address] [place] [address] PCP - General Family Medicine 06/06/25 documented as of this encounter
--- OUTSIDE RECORDS SUMMARY | 2025-08-07 10:12 | XMS_ITS | Encounter Summary ---
Author Organization [facility] Address [address] [place] [address] Care Team Providers Care Financial Services Associate Name Role Phone Lars Lucas DO Primary Care Provider [phone] Jus Lopez MD Primary Care Provider [phone] Encounter Details Date Type Department Care Team (Late Contact Info) Description 06/03/2025 External Result Encounter [facility] External Department Unsolicited Mery Fairchild, [facility]SEKEEPER [facility]ILD [facility] [address] [place] [address] Social History Tobacco Use Types Packs/Day Years [...] OBGYN [address] [place] [address] Mariana David MD [address] [facility] [address] [place] [address] documented as of this encounter Procedures Procedure Name Priority Date/Time Associated Diagnosis Comments [facility] US UPPER EXTREMITY VENOUS DUPLEX [...] Dover M.D. 06/03/2025 8:45 AM Dictation Location: [place] [address] Tech: Ela Sullivan Transcribed By: ILIA 06/03/25 0845 Dictated By: Ancelmo Dover MD 06/03/25 0844 Signed By: <Electronically signed by MD Ancelmo Dover in OV> 06/03/25 0845 Narrative 06/03/2025 8:47 AM EDT [facility] Main [address] [address] Ultrasound Report Signed Patient: Loy Tam MR#: [id number] : 1980 Acct:[id number] Age/Sex: 44 / F ADM Date: 06/02/25 Loc: ER Room: Type: [facility] ER Attending Dr: Ordering Provider: [...] Procedure Note Ancelmo Dover MD - 06/03/2025 [facility] Main [place] [address] [place] [address] Ultrasound Report Signed Patient: Loy Tam NMR#: [id number] : 1980Acct:[id number] Age/Sex: 44 / FADM Date: 06/02/25 Loc: ER Room:Type: [facility] ER Attending Dr: Ordering Provider: [...] Dover M.D. 06/03/2025 8:45 AM Dictation Location: [place] [address] Tech: Ela Sullivan Transcribed By: ILIA 06/03/25 0845 Dictated By: Ancelmo Dover MD 06/03/25 0844 Signed By: <Electronically signed by MD Ancelmo Dover in OV> 06/03/25 0845 us Mery Fairchild [facility] IMG US PROCEDURES Final Resu lt documented in this encounter Visit Diagnoses Not on filedocumented in this encounter Care Teams Financial Services Associate Relationship Specialty Start Date End Date Lars Lucas DO PCP - General 07/13/23 06/05/25 Jus Lopez MD [address] [place] [address] PCP - General Family Medicine 06/06/25 documented as of this encounter
--- OUTSIDE RECORDS SUMMARY | 2025-08-07 10:12 | XMS_ITS | Encounter Summary ---
Author Organization [facility] Address [address] [place] [address] Care Team Providers Care Waste Disposal Leakage Tester Name Role Phone Lars Lucas DO Primary Care Provider [phone] Jus Lopez MD Primary Care Provider [phone] Encounter Details Date Type Department Care Team (Late Contact Info) Description 06/03/2025 External Result Encounter [facility] External Department Unsolicited Mery Fairchild, CLARIFIER OPERATOR [address] [place] [address] Social History Tobacco Use Types Packs/Day Years [...] OBGYN [address] [place] [address] Mariana David MD [address] [facility] [address] [place] [address] documented as of this encounter Procedures Procedure Name Priority Date/Time Associated Diagnosis Comments [facility] US LOWER EXTREMITY VENOUS DUPLEX BILATERAL [...] Dover M.D. 06/03/2025 8:44 AM Dictation Location: [place] [address] Tech: Ela Sullivan Transcribed By: ILIA 06/03/25 0844 Dictated By: Ancelmo Dover MD 06/03/25 0844 Signed By: <Electronically signed by MD Ancelmo Dover in OV> 06/03/25 0844 Narrative 06/03/2025 8:46 AM EDT [facility] Main [address] [address] Ultrasound Report Signed Patient: Loy Tam MR#: [id number] : 1980 Acct:[id number] Age/Sex: 44 / F ADM Date: 06/02/25 Loc: ER Room: Type: [facility] ER Attending Dr: Ordering Provider: Mery Fairchild [...] Procedure Note Ancelmo Dover MD - 06/03/2025 [facility] Main [place] [address] [place] [address] Ultrasound Report Signed Patient: Loy Tam NMR#: [id number] : 1980Acct:[id number] Age/Sex: 44 / FADM Date: 06/02/25 Loc: ER Room:Type: [facility] ER Attending Dr: Ordering Provider: Mery Fairchild [...] Dover M.D. 06/03/2025 8:44 AM Dictation Location: [place] [address] Tech: Ela Nate Transcribed By: ILIA 06/03/25843 Dictated By: Ancelmo Dover MD 06/03/25843 Signed By: <Electronically signed by MD Ancelmo Dover in OV> 06/03/25843 us Mery Fairchild CLARIFIER OPERATOR IMG US PROCEDURES Final Resu lt documented in this encounter Visit Diagnoses Not on filedocumented in this encounter Care Teams Waste Disposal Leakage Tester Relationship Specialty Start Date End Date Lars Lucas DO [phone] (work) PCP - General 07/13/23 06/05/25 Jus Lopez MD [address] [place] [address] PCP - General Family Medicine 06/06/25 documented as of this encounter
--- OUTSIDE RECORDS SUMMARY | 2025-08-07 10:13 | XMS_ITS | Clinical Summary ---
Author Organization [facility] Address [id number] [address] [place] [address] Care Team Providers Care Chair Inspector And Leveler Name Role Phone Unavailable Primary Care Provider [...]
--- OUTSIDE RECORDS SUMMARY | 2025-08-07 10:13 | XMS_ITS | Clinical Summary ---
Author Organization [facility] Address [address] [place] [address] Phone Care Team Providers Care Senior Software Development Manager Name Role Phone Unavailable Primary Care Provider [...] COVID-19 Vaccine ( - 2023-2 5 season) 2025 Influenza Vaccine (#1) 2025 Zoster Vaccines (1 [...]
--- OUTSIDE RECORDS SUMMARY | 2025-08-07 10:13 | XMS_ITS | Patient Health Record ---
Author Organization [facility] [place] Address [address] [place] [address] Care Team Providers Care Quarry Manager Name Role Phone None, Unknown or Primary [...] provider) Interpretation: Performing Lab: Notes/Report: Source Facility: [place] [address] XRay Report Signed Patient: LOY HASTINGS MR#: [id number] : 1980 Acct:[id number] Age/Sex: 44 / F ADM Date: 04/16/25 Loc: RAD Attending Dr: Peggy Garcia D.P.M. Ordering Physician: Peggy Garcia D.P.M. Date of Service: 04/16/25 Procedure(s): XR foot LT min 3V Accession Number(s): [id number] cc: FAMILY,HEALTH SER ; Peggy Garcia D.P.M. [place] [address] Patient Name: LOY HASTINGS MRN: [id number] date: 1980 Sex: F Assigned Patient Location: RAD Current Patient Location: RAD Accession/Order Number: [id number] Exam Date: 04/16/2025 10:45 Report Date: 04/16/2025 [...] Matta M.D. 04/16/2025 10:47 AM Dictation Location: [place] [address] Electronically authenticated by: [id number] Y Date: 04/16/2025 10:47 Dictated By: Alan Matta M.D. Signed By: 04/16/25 1050 DD/ 1047 TD/TT: Reception Centre Manager: [address] [address] XRay Report Signed Patient: ALFRED HASTINGS MR#: [id number] : 1980 Acct:[id number] Age/Sex: 44 / F ADM Date: 04/16/25 Loc: [facility] Attending Dr: Peggy Garcia D.P.M. Ordering Physician: Peggy Garcia D.P.M. Date of Service: 04/16/25 Procedure(s): XR foot LT min 3V Accession Number(s): [id number] cc: FAMILY,HEALTH SE R ; Peggy Garcia D.P.M. [address] [place] [address] Patient Name: LOY HASTINGS MRN: [id number] date: 1980 Sex: F Assigned Patient Location: [facility] Current Patient Location: [facility] Accession/Order Numb er: [id number] Exam Date: 04/16/2025 10:45 Report Date: 04/16/2025 [...] Matta M.D. 04/16/2025 10:47 AM Dictation Location: [place] [address] Electronically authe nticated by: [id number] Y Date: 04/16/2025 10:47 Dictated By: Alan Matta M.D. Signed By: 04/16/25 1050 DD/ 1047 TD/TT: Reception Centre Manager: Reason For Referral No Information Medications Medication [...] Problem Status W/U Status Risk Notes Problem 63895821 Type 2 diabetes mellitus with diabetic polyneuropathy (E11.42) Active confirmed Problem 9784018657773612 Primary osteoarthritis, left ankle and foot (M19.072) Active confirmed Problem 404394949 Pain in left ankle and joints of left foot (M25.572) Active confirmed Problem 28540082822846137 Pain in right foot (M79.671) Active confirmed Problem 444244733722436 Pain in left silvia t (M79.672) Active confirmed Problem 22522385 Unspecified sprain of left foot, initial encounter [...] End Date [place] [address] [place] [address] [id number] Loy Hastings Self - patient is the insured 3 [place]ICAID [place] 2ND INS [address] OFFICE OF [place], [place] [id number] Loy Hastings Self - patient is the insured [employer] [place] [address] [address] [place] [address] [id number] Loy Hastings Self - patient is the [...]
--- OUTSIDE RECORDS SUMMARY | 2025-08-07 10:13 | XMS_ITS | Clinical Summary ---
Author Organization [facility] Address [address] [place] [address] Care Team Providers Care Shoe Repairer Name Role Phone Unavailable Primary Care Provider [...]
--- OUTSIDE RECORDS SUMMARY | 2025-08-07 10:14 | XMS_ITS | Encounter Summary ---
Author Organization [facility] Address [address] [place] [address] Care Team Providers Care Remote Sensing Technologist Name Role Phone Lars Lucas DO Primary Care Provider [phone] Jus Lopez MD Primary Care Provider [phone] Encounter Details Date Type Department Care Team (Late st Contact Info) Description 12/29/2023 Orders Only CLAUDINE LÓPEZ [address] [place] [address] Mariana David MD [address] [place] [address] Social History Tobacco Use Types Packs/Day Years [...] LÓPEZ [address] [place] [address] Mariana David MD [address] [facility] [address] [place] [address] documented as of this encounter Procedures Procedure [...] on filedocumented in this encounter Care Teams Remote Sensing Technologist Relationship Specialty Start Date End Date Lars Lucas DO PCP - General 07/13/23 06/05/25 Jus Lopez MD [address] [place] [address] PCP - General Family Medicine 06/06/25 documented as of this encounter
--- OUTSIDE RECORDS SUMMARY | 2025-08-07 10:14 | XMS_ITS | Patient Health Record ---
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 Marquise Benjamin Unavailable [phone] Linda Acevedo Unavailable [phone] Rachelle Potter Unavailable [phone] Cedrick Mejia Unavailable [phone] Allergies Allergen (clinical drug ingredient) Drug/Non Drug Allergy documented on EMR Reaction Allergy Type Onset Date Status Shellfish (FN) scallops (uncoded) hives Allergy Active Flexeril vomiting Drug Allergy Active naproxen Naproxen vomiting Drug Allergy Active Zofran sick Drug Allergy Active Results Component Value Reference Range Notes MicroAlb Creat Ratio,U Reviewed date:09/11/2024 09:02:38 AM Interpretation: Performing Lab:, [facility], [address] [place] Notes/Report: Reason for Exam Obesity due to excess calories with serious comorbidity, uns Microalbumin, Urine 0.9 0.0-1.8 mg/dL Creatinine, Urine (Random) 167.00 N o reference range established Microalbumin/Creatinine Ratio 5.4 0.0-30.0 mg /g 30-300 mg/g indicates an increased risk for diabetic nephropathy. Greater than 300 mg/g is consistent with clinical nephropathy. (Am. J. Kidney Disease 1995, 25:107) A1C with Estimated Average G chano Reviewed date:09/11/2024 09:02:38 AM Interpretation: Performing Lab:, [facility], [place] Notes/Report: Reason for Exam Obesity due to excess calories with serious comorbidity, uns Hemoglobin A1C 5.9 4.3-5.6 % Increased risk for diabetes: 5.7 - 6.4 diabetes: >6.4 glycemic control for adults with diabetes: <7.0 Estimated Average Glucose 123 Comprehensive Metabolic Pane l Reviewed date:09/11/2024 09:02:38 AM Interpretation: Performing Lab:, [facility], [place] Notes/Report: Reason for Exam [...] Reviewed date:09/11/2024 09:02:39 AM Interpretation: Performing Lab:, [facility], [place] Notes/Report: Reason for Exam [...] date:04/10/2025 01:23:32 PM Interpretation:N Performing Lab: Notes/Report: [facility] Main [place] [address] [place] [address] Ultrasound Report Signed Patient: Loy Babb MR#: [id number] : 1980 Acct:[id number] Age/Sex: 44 / F ADM Date: 04/10/25 Loc: [place] Room: Type: [facility] Attending Dr: Sneha Joe MD Ordering [...] Jr., D.ORosey 04/10/2025 9:55 AM Dictation Location: [facility] Tech: Dana Paredes Transcribed By: ILIA 04/10/25954 Dictated By: Marquise Mendenhall Jr, DO 04/10/25 0940 Signed By: <Electronically signed by Marquise Mendenhall Jr, DO in OV> 05/14/25 0955 Reason For Referral Reason Unable to lose weigh t TE 3-4 Diagnosis 1 Unable to lose weigh t (R63.8) Referral Organization [facility] ice Referring Provider First Name Lopez Referring Provider Last Name Jus Referring Provider [facility] ctice Referred Provider Specialty Missileman Referral Priority Routine Reason SCHEDULED Unable t o lose weight *FAXED 01/24 Diagnosis 1 Unable to lose weigh t (R63.8) Referral Organization [facility] ice Referring Provider First Name Lopez Referring Provider Last Name Jus Referring Provider [facility] ctice Referred Provider [facility] Referred Provider Specialty Weight Manag ement General Notes Rosetta Kapadia 2024 10:47:11 AM >[phone], Referral Priority Routine Reason *FAXED 07/09 Pt rep orts history of rheumatoid arthritis and joint pains. Diagnosis 1 Rheumatoid arthritis involving both hands, unspecified whether rheumatoid factor present (M06.9) Referral Organization [facility] ice Referring Provider First Name Lopez Referring Provider Last Name Jus Referring Provider [facility] ctice Referred Provider Specialty Rheumatology General Notes Rosetta Kapadia 2024 09:22:46 AM >JORDON Abdi (Dr. Unger) [phone] Referral Priority Routine Medications Medication SIG (Take, Route, Frequency, Duration) Notes Start Date End Date Status FreeStyle Nubia 3 Sensor - Apply sensor every 15 days; Duration: 150 days 06/04/2025 Active oxyCODONE-Acetami nophen 5-325 MG 1 tablet [...] be covered by her insurance Active Pen [place] 33G X 4 MM as directed subcutaneous once a day; Duration: 30 days please provide for victoza whatever is preferred by insurance please 07/14/2020 Active Adipex-P 37.5 MG 1 tablet before [...] school What is your current work situation? [employer] temporary work In the past [...] phone, visiting friends or family, going to jainism or club meetings) More than 5 times a week How stressed are you? Stress is when someone feels tense, nervous, anxious, or cant sleep at night because their mind is troubled Somewhat In the past year have you sp ent more than 2 nights in a row in a halfway, longterm, halfway center, or juvenile correctional facility? No Are [...] Status Risk Notes Problem Morbid obesity (disorder) (493363219) Morbid (severe) obesity due to excess calories (E66.01) Active confirmed Problem Obesity due to excess calories (615409650) Other obesity due to excess calories (E66.09) Active confirmed Problem Chronic pain (46158478) Other chronic pain (G89.29) Active confirmed Problem Complex regional pain syndrome type I of left lower limb (disorder) (574213388657928) Complex regional pain syndrome I of left lower limb (G90.522) Active confirmed Problem Essential hypertension (96302964) Essential (primary) hypertension (I10) Active confirmed Problem Vitiligo (57792338) Vitiligo (L80) Active confi rmed Problem Acanthosis nigricans (993701258) Acanthosis nigricans (L83) Active confirmed Problem Sciatica (89881482) Lumbago with sciatica, left side (M54.42) Active confirmed Problem Fibromyalgia (375023421) Fibromyalgia (M79.7) Active confirmed Problem Paresthesia (finding) (00006054) Paresthesia of skin (R20.2) Active confirmed Problem Obesity (866710827) Obesity (E66.9) Active conf irmed Problem Type II diabetes mellitus without complication (364612294) Diabetes (E11.9) Active confirmed Problem Knee pain (8968772167) Knee pain (M25.569) Active confirmed Problem Carpal tunnel syndrome (21302956) Carpal tunnel syndrome (G56.00) Active confirmed Problem Constipation (08430162) Constipation, unspecified constipation type (K59.00) Active confirmed Problem Gastroesophageal reflux disease without esophagitis (519321005) Gastroesophageal reflux disease without esophagitis (K21.9) Active confirmed Problem Syncope and collapse (702754950) Syncope, unspecified syncope type (R55) Active confirmed Problem Insomnia (826020832) Insomnia, unspecified type (G47.00) Active confirmed Problem Tension-type headache (948683874) Acute non intractable tension-type headache (G44.209) Active confirmed Problem Migraine with aura (8645531) Migraine with aura and without status migrainosus, not intractable (G43.109) Active confirmed Problem Iron deficiency anemia due to chronic blood loss (870599990) Iron deficiency anemia due to chronic blood loss (D50.0) Active confirmed Problem Recurrent major depression in remission (04061573) Recurrent major depressive disorder, in partial remission (F33.41) Active confirmed Problem Type II diabetes mellitus without complication (403885646) Type 2 diabetes mellitus without complication, without long-term current use of insulin (E11.9) Active confirmed Problem Heart disease screening (441638475) Screening for heart disease (Z13.6) Active confirmed Problem Vitamin B>12< deficiency anaemia (10276439) Anemia due to vitamin B12 deficiency, unspecified B12 deficiency type (D51.9) Active confirmed Problem Supraspinatus (muscle) (tendon) sprain (S46.819A) Active confirmed Problem Osteoarthritis of multiple joints (577785388) Other osteoarthritis involving multiple joints (M15.8) Active confirmed Problem Asthma without status asthmaticus (46682836) Poorly controlled persistent asthma (J45.998) Active confirmed Problem Obese class II (367234879460818) Body mass index [BMI] 35.0-35.9, adult (Z68.35) Active confirmed Problem Body mass index 35.00 to 39.99 (432116613424938) Body mass index [BMI] 38.0-38.9, adult (Z68.38) Active confirmed Problem Body mass index 35.00 to 39.99 (373726887406964) Body mass index [BMI] 39.0-39.9, adult (Z68.39) Active confirmed Problem Obesity (365149959) Obesity due to excess calories with serious comorbidity, unspecified classification (E66.09) Active confirmed Problem Body mass index 40+ - severely obese (922120087) Body mass index [BMI] 40.0-44.9, adult (Z68.41) Active confirmed Problem Rheumatoid arthritis (54064848) Rheumatoid arthritis involving both hands, unspecified whether rheumatoid factor present (M06.9) Active confirmed Problem Type 2 diabetes mellitus with hypoglycemia without coma, without long-term current use of insulin (E11.649) Active confirmed Problem Obese class II (finding) (428421797525470) Obesity, class 2 (E66.812) Active confirmed Vital Signs Heart Rate 82 /min 07/05/2025 Temperature 97.9 degrees Fahrenheit 07/05/2025 Respiratory Rate 18 /min 07/05/2025 Oximetry 100 % 07/05/2025 Blood pressure diastolic 78 mm Hg 07/05/2025 Height 67.5 in 07/05/2025 Blood pressure systolic 123 mm Hg 07/05/2025 Weight 250.6 lbs 07/05/2025 BMI 38.67 kg/m2 07/05/2025 Encounters Encounter Location Date Provider Diagnosis [facility] [address] [place] [address] 01/03/2025 [facility] [address] [place] [address] 08/16/2024 [place] [address] [place] [address] 08/21/2024 [facility] Obesity due to exces s calories with serious comorbidity, unspecified classification E66.09 ; Type 2 diabetes mellitus without complication, without long-term current use of insulin E11.9 and Essential (primary) hypertension I10 [place] [address] [place] [address] 09/05/2024 [place] [address] [place] [address] 11/05/2024 [facility] Supraspinatus (muscl e) (tendon) sprain S46.819A [facility] [address] [place] [address] 11/16/2024 [place] [address] [place] [address] 12/06/2024 [place] [address] [place] [address] 01/29/2025 [place] [address] [place] [address] 04/08/2025 [facility] [address] [place] [address] 06/11/2025 [facility] [address] [place] [address] 06/11/2025 [place] [address] [place] [address] 06/13/2025 John Luu [facility] [address] [place] [address] 07/12/2025 John Luu Type 2 diabetes nely itus with hypoglycemia without coma, without long-term current use of insulin E11.649 [facility] [address] [place] [address] 08/22/2024 John Luu Diabetes E11.9 and Obesity E66.9 [facility] [address] [place] [address] 09/20/2024 John Luu Body mass index [BMI ] 35.0-35.9, adult Z68.35 ; Obesity, class 2 E66.812 and Morbid (severe) obesity due to excess calories E66.01 [facility] [address] [place] [address] 12/24/2024 John Luu Obesity E66.9 and Encounter for weight management Z76.89 [facility] [address] [place] [address] 01/24/2025 John Luu Unable to lose weigh t R63.8 ; Essential hypertension I10 and Swelling of lower extremity M79.89 [facility] [address] [place] [address] 02/25/2025 John Luu Obesity E66.9 and Un able to lose weight R63.8 [facility] [address] [place] [address] 03/25/2025 John Luu Abnormal finding on breast imaging R92.8 ; Other obesity due to excess calories E66.09 ; Body mass index [BMI] 38.0-38.9, adult Z68.38 ; Obesity, class 2 E66.812 ; Fibromyalgia M79.7 ; Preventative health care Z00.00 ; Constipation, unspecified constipation type K59.00 and Unable to lose weight R63.8 [facility] [address] [place] [address] 05/02/2025 Lopez Jus Obesity E66.9 and Co mmon cold J00 [facility] [address] [place] [address] 06/04/2025 John Luu Obesity E66.9 and Ty pe 2 diabetes mellitus with hypoglycemia without coma, without long-term current use of insulin E11.649 [facility] [address] [place] [address] 07/05/2025 John Luu Other obesity due to excess calories E66.09 ; Body mass index [BMI] 38.0-38.9, adult Z68.38 ; Obesity, class 2 E66.812 ; Rheumatoid arthritis involving both hands, unspecified whether rheumatoid factor present M06.9 and Obesity E66.9 [facility] [address] [place] [address] 12/13/2024 John Luu Fall, subsequent encounter W19.XXXD ; Arm pain, left M79.602 ; Left hand pain M79.642 and Swelling of left hand M79.89 [facility] [address] [place] [address] 05/27/2025 Rachelle Potter Dental caries on pit and fissure surface penetrating into dentin K02.52 [facility] [address] [place] [address] 03/26/2025 Marquise Benjamin Dental caries on pit and fissure surface penetrating into dentin K02.52 [place] [address] [place] [address] 01/08/2025 Marquise Benjamin Cracked tooth K03.81 and Encounter for dental examination and cleaning with abnormal findings Z01.21 [facility] [address] [place] [address] 04/04/2025 Cedrick Mejia Type 2 diabetes nely itus without complication, without long-term current use of insulin E11.9 ; Obesity E66.9 ; Gastroesophageal reflux disease without esophagitis K21.9 ; Body mass index [BMI] 38.0-38.9, adult Z68.38 ; Constipation, unspecified constipation type K59.00 ; Essential (primary) hypertension I10 and Anemia due to vitamin B12 deficiency, unspecified B12 deficiency type D51.[address] [place] [address] 06/13/2025 Cedrick Mejia Obesity E66.9 ; Type [...] for her should she choose to pay [id number] for the device. I will refill her [...] Supraspinatus (muscle) (tendon) sprain (ICD-10 - S46.819A) 12/13/2024 Arm pain, left (ICD-10 - M79.602) [...] at this time. Patient is meeting with Missileman and Weight Management in the next week. [...] gynecological care, including Pap smears, from her OB-RESIDENTIAL INSTRUCTOR, Dr. David. Patient has a significant smoking [...] leg surgery- limited ability to exercise Estimated Wilsey x 1.2 AF: 1,675 kcals/day for 1lb/week [...] 46 minutes spent with patient. Patient to medicinal plant picker next produce box 04/25/25. Seen by [...] leg surgery- limited ability to exercise Estimated [place] x 1.2 AF: 1,675 kcals/day for 1lb/week [...] 46 minutes spent with patient. Patient to medicinal plant picker next produce box 04/25/25. Seen by [...] leg surgery- limited ability to exercise Estimated Wilsey x 1.2 AF: 1,675 kcals/day for 1lb/week [...] 24 minutes spent with patient. Patient to medicinal plant picker [employer] box 06/24/25. Seen by Cedrick Mejia MPH, [...] leg surgery- limited ability to exercise Estimated Wilsey x 1.2 AF: 1,675 kcals/day for 1lb/week [...] 24 minutes spent with patient. Patient to medicinal plant picker next [employer] box 06/24/25. Seen by Cedrick Mejia MPH, [...] get the lab analysis report from her ssis architect that found that she had rheumatoid arthritis. Patient filled this form out. Follow-up in 3 months for weight check and Adipex reconciliation. 07/05/2025 Body mass index [BMI] 38.0-38.9, adult (ICD-10 - Z68.38) 07/12/2025 Type 2 diabetes mellitus with hypoglycemia without coma, without long-term current use of insulin (ICD-10 - E11.649) 07/05/2025 Obesity, class 2 (ICD-10 - E66.812) [...] leg surgery- limited ability to exercise Estimated Wilsey x 1.2 AF: 1,675 kcals/day for 1lb/week [...] 24 minutes spent with patient. Patient to medicinal plant picker [employer] box 06/24/25. Seen by Cedrick Mejia MPH, [...] leg surgery- limited ability to exercise Estimated Wilsey x 1.2 AF: 1,675 kcals/day for 1lb/week [...] 46 minutes spent with patient. Patient to medicinal plant picker next [employer] box 04/25/25. Seen by Cedrick Mejia MPH, [...] for initial RD visit. Referred by Dr. Vincent Lopez Nutrition related Dx: E66.9 Obesity, E11.9 [...] leg surgery- limited ability to exercise Estimated Wilsey x 1.2 AF: 1,675 kcals/day for 1lb/week [...] 46 minutes spent with patient. Patient to medicinal plant picker next produce box 04/25/25. Seen by [...] leg surgery- limited ability to exercise Estimated Wilsey x 1.2 AF: 1,675 kcals/day for 1lb/week [...] 24 minutes spent with patient. Patient to medicinal plant picker [employer] box 06/24/25. Seen by Cedrick Mejia MPH, [...] day, gets hungry at night Grocery Shopping: [employer], [employer] Household: , son (6) and daughter (9) [...] leg surgery- limited ability to exercise Estimated Wilsey x 1.2 AF: 1,675 kcals/day for 1lb/week [...] bag - - - - - Monitoring/Anne jackson -Weight, total intake, nutrition related lab values - - - - - RD name and contact information provided. Patient with no further nutrition-rela abdias questions at this time. Patient to follow-up with RD in 6-8 weeks. Patient seen from 10:47 AM to 11:11 AM for a total of 24 minutes spent with patient. Patient to medicinal plant picker next [employer] box 06/24/25. Seen by Cedrick Mejia MPH, [...] leg surgery- limited ability to exercise Estimated Wilsey x 1.2 AF: 1,675 kcals/day for 1lb/week [...] 46 minutes spent with patient. Patient to medicinal plant picker next produce box 04/25/25. Seen by Cedrick Mejia MPH, RD, LD. 03/25/2025 Fibromyalgia (ICD-10 - M79.7) 03/25/2025 Preventative health care (ICD-10 - Z00.00) [...] leg surgery- limited ability to exercise Estimated Wilsey x 1.2 AF: 1,675 kcals/day for 1lb/week [...] 46 minutes spent with patient. Patient to medicinal plant picker next produce box 04/25/25. Seen by [...] leg surgery- limited ability to exercise Estimated Wilsey x 1.2 AF: 1,675 kcals/day for 1lb/week [...] 24 minutes spent with patient. Patient to medicinal plant picker next [employer] box 06/24/25. Seen by Cedrick Mejia MPH, [...] leg surgery- limited ability to exercise Estimated Wilsey x 1.2 AF: 1,675 kcals/day for 1lb/week [...] 46 minutes spent with patient. Patient to medicinal plant picker next [employer] box 04/25/25. Seen by Cedrick Mejia MPH, [...] leg surgery- limited ability to exercise Estimated Wilsey x 1.2 AF: 1,675 kcals/day for 1lb/week [...] 24 minutes spent with patient. Patient to medicinal plant picker next [employer] box 06/24/25. Seen by Cedrick Mejia MPH, [...] Rice er, 08/20/2025 09:00:00 AM, [address] [facility], [address], [place], [address], Provider Name:Marquise Benjamin, 1 12/01/2024 09:55:00 AM, [address], [place], [address], Provider Name:Marquise Benjamin, 1 12/07/2024 09:00:00 AM, [address], [place], [address], Provider Name:Marquise Benjamin, 1 12/15/2024 09:20:00 AM, [address], [place], [address], Provider Name:John leigh, 10/17/2025 10:45:00 AM, [address], [place], [address], Insurance Providers Payer Name Payer Address Payer Phone Subscriber Number Group Number Insured Name Patient Relationship to Insured Coverage Start Date Coverage End Date MEDICARE CGS 1 JULIUS [address] [facility] [place] [address] [id number] ALFRED BABBRAHUnruly Self - patient is the insured 3 B MEDICAID SEC TO [facility] [address] [place] [address] [phone] [id number] BABB , AERAHUnruly Self - patient is the insured 3 [employer] [place] Medicaid [address] [place] [address] [phone] [id number] DOMINICK BABBUnruly Self - patient is the insured 3 4 [employer] [facility] [address] [place] [address] [phone] [id number] BABB , AEKAREN Self - patient is the insured 3 4 [employer] [place] Medicaid [address] [place] [address] [id number] DOMINICK BABBUnruly Self - patient is the insured 3 4 DENT[employer] MEDICAID [place] [address] [place] [address] [phone] [id number] BABB , AEKAREN Self - patient is the insured [address] [facility] MEDICAID SEC TO [facility] [address] [place] [address] [id number] BABB , AEKAREN Self - patient is the insured 4 [...] 11/2022 LT Sprained Ankle 2019 Child births 1999,2005 & 2014 Gall bladder 1999
--- NOTE | 2025-08-07 10:26 | CT_ITS ---
The [address] [address] Patient Name: PEREZ BABB MRN: [id number] date: 1980 Sex: F Assigned Patient Location: CT Current Patient Location: CT Accession/Order Number: [id number] Exam Date: 08/07/2025 10:20 Report Date: 08/07/2025 16:41 At the request of: PEGGY EDWARDS DPM Procedure: CT foot LT wo con CT left foot without contrast TECHNIQUE: The CT exam was performed using one or more the following dose reduction techniques: Automated exposure control, adjustment of the MA and/or Kv according to patient size, or use of the iterative reconstruction technique. COMPARISON: Plain film left foot 04/16/2025 HISTORY: Left foot pain and swelling for 2 weeks. Fell 2 weeks ago. Ankle fusion hardware present. Visualized hardware intact. Unremarkable ankle fusion. Moderate midfoot degeneration with marginal spurring superiorly. Chronic bony changes of the ankle. Mild degeneration of the distal foot. Adequate bony alignment. No acute fracture. No acute bony destruction. No subcutaneous air. No radiodense foreign body. CT/CT foot LT wo con IMPRESSION: Unremarkable ankle fusion. No visualized hardware complication. Midfoot and distal foot there are degenerative changes. No acute bony findings. Impression dictated by: Ancelmo Castellano M.D. 08/07/2025 4:41 PM Dictation Location: [place] [address] Electronically authenticated by: [id number] Y Date: 08/07/2025 16:41
== END 2025-08-07 10:10 | disposition home or self-care (01) ==
LOC: CT 10:10
PROVIDERS: Visit Provider Podiatrist Foot & Ankle Surgery
DX: M19.072 Primary osteoarthritis, left ankle and foot (principal); M24.672 Ankylosis, left ankle; S92.405D Nondisplaced unspecified fracture of left great toe, subsequent encounter for fracture with routine healing
CPT/HCPCS: 73700; 76376

== ENCOUNTER 2025-10-10 10:12 | Outpatient (OUT) | payer MEDICARE, MEDICAID, SELFPAY ==
--- OUTSIDE RECORDS SUMMARY | 2025-10-10 10:16 | XMS_ITS | Clinical Summary ---
Author Organization [employer] [facility] tem Address [facility] [address] [place] [address] Care Team Providers Care Soft Sugar Cutter Name Role Phone Unavailable Primary Care Provider Unavailabl e Social History Tobacco UseTypesPacks/DayYears UsedDateSmoking Tobacco: Never AssessedChildcare AnswerDate XcsmzrqkYckqjycsmVvbexyf71/29/2020EmploymentAnswerDate Recorded AbikguzmbtFunsnxj71/29/2020Purpose - LifeAnswerDate RecordedPurpose and direction in vagnQmbfjqo59/11/2021CommentsUnknownSex and Gender InformationValueDate RecordedSex Assigned at BirthNot on fileLegal SexFemale 06/25/2020 2:51 PM EDTGender IdentityNot on fileSexual OrientationNot on file Plan of Treatment Health MaintenanceDue DateLast DoneCommentsDepression Mhznrqzmc01/28/1991Tobacco Bpgocqymk24/28/1991Adult BMI Pjtpjxoam58/28/1997DTaP,Tdap and Td Vaccines (1 - Tdap)1997Pap Smear1999Influenza Dhzenqu0007/29/2025 Medical Devices Not on file Insurance
--- OUTSIDE RECORDS SUMMARY | 2025-10-10 10:16 | XMS_ITS | Clinical Summary ---
Author Organization [facility] Address [address] [place] [address] Care Team Providers Care Heavy Mobile Equipment Repairer Name Role Phone Unavailable Primary Care Provider Unavailabl e Social History Tobacco UseTypesPacks/DayYears UsedDateSmoking Tobacco: Never Assessed CommentsUnknownSex and Gender InformationValueDate RecordedSex Assigned at Not on fileLegal NmqPlyxdh36/03/2025 10:31 AM ESTGender IdentityNot on file Sexual OrientationNot on file Plan of Treatment Health MaintenanceDue DateLast DoneCommentsCT Keeibgbriwuo82/28/1979Colonoscopy 1978Colorectal Cancer Pdibilktk46/28/1979Diabetes: Hemoglobin A1C 1978FIT-DNA1978FIT1978FOBT1978 9241Kavjofsrhvfhg34/28/1979 Diabetes: Retinopathy Yvnueplgy63/28/1989Depression Kxfwpqsls07/28/1991Diabetes: Urine Protein Hbexamzgg34/28/1998Hepatitis B Vaccines (1 of 3 - 19+ 3-dose series)1997Pneumococcal Vaccine: Pediatrics (0 to 5 Years) and At-Risk Patients (6 to 64 Years) (1 of 2 - PCV)1997Pap Smear1999Adult Dvzbdfw7812/25/2000Cervical Cancer Wwljfmpvn80/28/2009HPV/Pxbsnt5612/25/2008 Vbhhqocap48/28/2019COVID-19 Vaccine ( - 2024- season)2025Influenza Vaccine (#1)2025Zoster Vaccines (1 of 2)2028HIB VaccinesAged OutNo longer eligible based on patient's age to complete this topicHPV VaccinesAged OutNo longer eligible based on patient's age to complete this topicIPV Vaccines Aged OutNo longer eligible based on patient's age to complete this topic Meningococcal B VaccineAged OutNo longer eligible based on patient's age to complete this topicMeningococcal VaccineAged OutNo longer eligible based on patient's age to complete this topicRotavirus VaccinesAged OutNo longer eligible based on patient's age to complete this topic
--- OUTSIDE RECORDS SUMMARY | 2025-10-10 10:16 | XMS_ITS | Clinical Summary ---
Author Organization [facility] Address [address] 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 Name Role Phone Unavailable Primary Care Provider Unavailabl e Social History Tobacco UseTypesPacks/DayYears UsedDateSmoking Tobacco: Never Assessed CommentsUnknownSex and Gender InformationValueDate RecordedSex Assigned at Not on fileLegal GfiAuatmv04/07/2023 4:16 PM EDTGender IdentityNot on fileSexual OrientationNot on file Plan of Treatment Health MaintenanceDue DateLast DoneCommentsCT Trqewnhispwq53/28/1979Colonoscopy 1978Colorectal Cancer Wwfcysnte77/28/1979FIT-DNA (Cologuard)1978FIT 1978HIV Xmgwctgbm66/28/1979Lipid Panel1978 7743Sqivztohysxuj05/28/1979 Yearly Adult Ykdbejzm93/28/1979MMR Vaccines (1 of 1 - Standard series)1979 Hepatitis C Tqxyxezhq50/28/1997Hepatitis B Vaccines (1 of 3 - 19+ 3-dose series) 1997Cervical Cancer Xhtulhubs32/28/2000HPV/Zbrxfl2912/25/1999Pap Smear 1999DTaP/Tdap/Td Vaccines (1 - Tdap)12/25/20000487Jshemwslh98/28/2019Influenza Vaccine (#1)5COVID-19 Vaccine (1 - 2024- season)2025Zoster Vaccines (1 of 2)2028HIB VaccinesAged OutNo longer eligible based on patient's age to complete this topicHPV VaccinesAged OutNo longer eligible based on patient's age to complete this topicHepatitis A VaccinesAged OutNo longer eligible based on patient's age to complete this topicIPV VaccinesAged OutNo longer eligible based on patient's age to complete this topicMeningococcal VaccineAged OutNo longer eligible based on patient's age to complete this topic Pneumococcal Vaccine: Pediatrics and At-Risk Adult PatientsAged OutNo longer eligible based on patient's age to complete this topicRotavirus VaccinesAged Out No longer eligible based on patient's age to complete this topic
--- OUTSIDE RECORDS SUMMARY | 2025-10-10 10:16 | XMS_ITS | Clinical Summary ---
Author Organization [facility] Address [address] [place] [address] Care Team Providers Care Plumber Name Role Phone Jus Lopez MD Primary Care Provider [phone] Allergies Active AllergyReactionsCriticalityNoted CoxpRhrilkniCaykpzekmjumtip13/14/2023 Other Reaction(s): vomiting Zeofclav84/14/2023 Other Reaction(s): vomiting Hnetjdaqqfb25/14/2023 Other Reaction(s): sick Other06/10/2023 Other Reaction(s): hives Medications MedicationSigDispense QuantityRefillsLast FilledStart DateEnd DateStatus omeprazole (PriLOSEC) [address] capsule Take 20 mg by mouth 1 (one) time each day at the same time.Active oxyCODONE-acetaminophen (Percocet) 5-325 MG tablet Take 1 tablet by mouth 3 (three) times a day as needed.06/29/2023ctive tiZANidine (Zanaflex) 4 MG tablet Take 4 mg by mouth every 12 (twelve) hours.06/10/2023ctive spironolactone (Aldactone) 25 MG tablet Take 25 mg by mouth 1 (one) time.Active hydrOXYzine pamoate (Vistaril) 25 MG capsule Take 25 mg by mouth every 12 (twelve) hours if needed.12/27/2022ctive Ascorbic Acid (vitamin C) 250 MG tablet Take 500 mg by mouth in the morning.Active cholecalciferol (Vitamin D-3) 25 MCG (1000 UT) capsule Take 1,000 Units by mouth in the morning.Active Dulaglutide (Trulicity) 4.5 MG/0.5ML solution auto-injector Inject under the skinActive phentermine (Adipex-P) 37.5 MG tablet Take 37.5 mg by mouth in the morning. Take before meals.Active acetaminophen (Tylenol) 325 MG tablet Take 325 mg by mouth every 6 (six) hours if needed for mild pain04/08/2025tive dicyclomine (Bentyl) 20 MG tablet Take 20 mg by mouth 4 (four) times a day as slvewq0805/09/2025tive DULoxetine (Cymbalta) [address] capsule Take 20 mg by mouth Daily05/01/2025tive ferrous sulfate 324 (65 Fe) MG EC tablet Take 324 mg by mouth in the morning. Take with meals.05/05/2025tive loperamide (Imodium) 2 MG capsule Take 2 mg by mouth 3 (three) times a day as needed for yzbuhahh20/13/2024ctive meloxicam (Mobic) 15 MG tablet Take 15 mg by mouth Daily07/10/2024ctive metaxalone (Skelaxin) 400 MG tablet Take 400 mg by mouth in the morning and 400 mg in the evening and 400 mg before bedtime.12/05/2024tive methylPREDNISolone (Medrol Dospak) 4 MG tablets Take 4 mg by mouth 1 (one) time06/02/2025tive potassium chloride ER (Micro-K) 10 MEQ ER capsule Take 10 mEq by mouth Daily05/02/2025tive valsartan-hydroCHLOROthiazide (Diovan-HCT) 160-25 MG tablet Take 1 tablet by mouth Daily05/02/2025tive promethazine (Phenergan) 25 MG tablet Take 25 mg by mouth every 6 (six) hours if needed for mlnvub3805/04/2025tive Encounters DateTypeDepartmentCare JeooWlslnopblup84/30/2025Results Follow-Up [facility] [place] [facility] [address] [place] [address] Mariana David MD IGP, APT HPV,RFX ,45008/21/2025 1:45 PM EDTOffice Visit [facility] [address] [place] [address] Mariana David MD Screening mammogram, encounter for (Primary Dx); Encounter for gynecological examination without abnormal finding; Encounter for screening for cervical cancer; Encounter for screening mammogram for malignant neoplasm of breast; Other constipation; Colon cancer kruavjivn43/24/2025Travelfrom Last 3 Months Family History Medical HistoryRelationNameCommentsDiabetesBrotherAnthony RobertsStrokeBrother Mynor RobertsDiabetesFatherWilson RobertsHeart diseaseFatherWilson Sierra StrokeFatherWilson RobertsBreast cancerFather's SisterJettie RobertsDiabetes MotherBrenda HarrisHeart diseaseMotherBrenda HarrisDiabetesSisterLatishia Curtis MigrainesSisterLatishia HarrisRelationNameStatusCommentsBrotherAnthony Seirra FatherWilson RigoFather's SisterJettie RobertsMotherBrenda CurtisSister Latishia Curtis Social History Tobacco UseTypesPacks/DayYears UsedDateSmoking Tobacco: FormerCigarettes0.510 01/27/2002 - 11/02/2008Smokeless Tobacco: Never Tobacco Cessation:Counseling Given: Not Answered Alcohol UseStandard Drinks/WeekCommentsNot Currently0 (1 standard drink = 0.6 oz pure alcohol)PHQ-2AnswerDate RecordedPatient Health Questionnaire-2 Score0 02/21/2025CommentsNoSex and Gender InformationValueDate RecordedSex Assigned at BirthNot on fileLegal LqtRdtifh87/15/2023 6:46 PM EDTGender Identity Not on fileSexual OrientationNot on file Last Filed Vital Signs Vital SignReadingTime TakenCommentsBlood Prpozddu656/68008/21/2025 2:15 PM EDT Pulse--Temperature--Respiratory Rate--Oxygen Saturation--Inhaled Oxygen Concentration--Ihqetu217 kg (260 lb 3.2 oz)08/21/2025 2:15 PM OKPIihwkl186.2 cm (5' 7 )06/06/2025 10:06 AM EDTBody Mass Index40.75006/06/2025 10:06 AM EDT Plan of Treatment DateTypeDepartmentCare Team (Latest Contact Info)Knfvsddzaii31/30/2026 2:15 PM EDTOffice Visit [facility] [place] [facility] [address] [place] [id number] Mariana David MD [address] [place] [address] Procedures Procedure NamePriorityDate/TimeAssociated DiagnosisCommentsIGP, APT HPV,RFX 16/18,83Vgaoboh65/24/2025 12:00 AM EDT Encounter for gynecological examination without abnormal finding Encounter for screening for cervical cancer from Last 3 Months Results * IGP, APT HPV,RFX 16/18,45 (08/21/2025 12:00 AM EDT)ComponentValueRef RangeTest MethodAnalysis TimePerformed AtPathologist SignatureDiagnosis:CommentLABC[facility]P Comment:NEGATIVE FOR INTRAEPITHELIAL LESION OR MALIGNANCY.Specimen Adequacy: CommentLABCORPComment: Satisfactory for evaluation. ??Endocervical and/or squamous metaplastic cells (endocervical component) are present. Clinician Provided ICD10:CommentLABCORPComment: Z01.419 Z12.4 Performed By:CommentLABCORPComment:Bri Shah, CytologistCyto Comments. LABCORPNote:CommentLABCORPComment: The Pap smear is a screening test designed to aid in the detection of premalignant and malignant conditions of the uterine cervix. ??It is not a diagnostic procedure and should not be used as the sole means of detecting cervical cancer. ??Both false-positive and false-negative reports do occur. Test Methodology:CommentLABCORPComment: This liquid based ThinPrep(R) pap test was screened with the use of an image guided system. HPV AptimaNegativeNegativeLABCORPComment: This nucleic acid amplification test detects fourteen high-risk HPV types (16,18,31,33,35,39,45,51,52,56,58,59,66,68) without differentiation. Specimen (Source)Anatomical Location / LateralityCollection Method / Volume Collection TimeReceived TimeVaginal Fluid/ Narrative [facility] - 08/26/2025 3:07 PM EDT Performed at: 01 - [facility] [address] [place] [id number] Sl[place] Hoist Operator: Gricel Wolfe MD, Phone: ??[phone] Performed at: ??02 - [facility] [address] [place], [place] ??[id number] [place] Ho[employer] Operator: Gricel Wolfe MD, Phone: ??[phone] Specimen Comment: No. of containers..01 ThinPrep Vial Authorizing ProviderResult TypeResult StatusMariana David MDLAB BLOOD ORDERABLESFinal ResultPerforming OrganizationAddressCity/State/ZIP CodePhone Number [facility] from Last 3 Months Insurance Care Teams Team MemberRelationshipSpecialtyStart DateEnd Jus Lopez MD [address] [place] [address] [facility]06/06/25
--- NOTE | 2025-10-10 10:50 | PM.CN ---
Consult Note: HPI Data of Consult Patient: known to practice within the last 3 years Requesting Physician: Shonda Jeffery NP Primary Care Provider: [facility] Consult Narrative Reason for consult: low back and LLE pain Narrative: 44yof who presents for assessment. she notes persistence of significant left lower extremity pain as a consequence of her 33+ foot surgeries. states that she is trying to avoid any further surgeries, if at all possible. has been able to work, but still has significant left foot pain secondary to CRPS. failed tylenol and nsaids. utilizes percocet and mobic which provides some relief. has undergone a variety of physical therapy sessions, with minimal lasting benefit. denies adverse med side effects. previous left lumbar sympathetic block x2 resulted in 0% improvement. continues to f/u with podiatry. since last visit had a potential sickle cell crisis, as well as blood clots to LLE. pending further workup with heme/onc and rheumatology. Patient noticing increasing low back and LLE pain over the last 6 months, unresponsive to > 6 weeks of HEP, heat, ice, tylenol, nsaids. noting worsening left thigh pain. cc:: CC: Shonda Jeffery NP Review of Systems ROS Musculoskeletal Reports: back pain and extremity pain [facility] Medical History History of blood transfusion ?Z92.89 - Personal history of other medical treatment (ICD-10) Syncope (2022) ?R55 - Syncope and collapse (ICD-10) Syncope anginosa ?I20.89 - Other forms of angina pectoris (ICD-10) Diabetes ?E11.9 - Type 2 diabetes mellitus without complications (ICD-10) Postoperative nausea and vomiting ?R11.2 - Nausea with vomiting, unspecified (ICD-10) ?Z98.890 - Other specified postprocedural states (ICD-10) Equinus contracture of ankle ?M24.573 - Contracture, unspecified ankle (ICD-10) Chronic osteomyelitis ?M86.60 - Other chronic osteomyelitis, unspecified site (ICD-10) Eczema ?L30.9 - Dermatitis, unspecified (ICD-10) Varicose vein of leg ?I83.90 - Asymptomatic varicose veins of unspecified lower extremity (ICD-10) Neuropathy ?G62.9 - Polyneuropathy, unspecified (ICD-10) Fibromyalgia ?M79.7 - Fibromyalgia (ICD-10) Calcaneal spur ?M77.30 - Calcaneal spur, unspecified foot (ICD-10) Arthritis ?M19.90 - Unspecified osteoarthritis, unspecified site (ICD-10) Pain of left lower extremity ?M79.605 - Pain in left leg (ICD-10) 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 ?G57.32 - Lesion of lateral popliteal nerve, left lower limb (ICD-10) DVT (deep venous thrombosis) (~2020) ?I82.409 - Acute embolism and thrombosis of unspecified deep veins of unspecified lower extremity (ICD-10) Compartment syndrome ?T79.A0XA - Compartment syndrome, unspecified, initial encounter (ICD-10) Plantar fasciitis ?M72.2 - Plantar fascial fibromatosis (ICD-10) Carpal tunnel syndrome ?G56.00 - Carpal tunnel syndrome, unspecified upper limb (ICD-10) Prediabetes ?R73.03 - Prediabetes (ICD-10) Achilles tendinitis ?M76.60 - Achilles tendinitis, unspecified leg (ICD-10) Complex regional pain syndrome of left lower extremity ?G90.522 - Complex regional pain syndrome I of left lower limb (ICD-10) Anxiety ?F41.9 - Anxiety disorder, unspecified (ICD-10) Osteoarthritis ?M19.90 - Unspecified osteoarthritis, unspecified site (ICD-10) Low back pain ?M54.50 - Low back pain, unspecified (ICD-10) Anemia ?D64.9 - Anemia, unspecified (ICD-10) Obesity ?E66.9 - Obesity, unspecified (ICD-10) Acid reflux ?K21.9 - Gastro-esophageal reflux disease without esophagitis (ICD-10) Asthma ?J45.909 - Unspecified asthma, uncomplicated (ICD-10) Hypertension ?I10 - Essential (primary) hypertension (ICD-10) Surgical History S/P epidural steroid injection ?Z92.241 - Personal history of systemic steroid therapy (ICD-10) History of cholecystectomy (1998) ?Z90.49 - Acquired absence of other specified parts of digestive tract (ICD-10) History of carpal tunnel release ?Z98.890 - Other specified postprocedural states (ICD-10) H/O tubal ligation (12/08/18) ?Z98.51 - Tubal ligation status (ICD-10) History of ankle surgery ?Z98.890 - Other specified postprocedural states (ICD-10) H/O foot surgery ?Z98.890 - Other specified postprocedural states (ICD-10) H/O carpal tunnel repair ?Z98.890 - Other specified postprocedural states (ICD-10) History of delivery ?Z98.891 - History of uterine scar from previous surgery (ICD-10) Family History Other Family history of diabetes mellitus Family history of myocardial infarction Family history of stroke Heart disease Lymphoma Social History Within the past year, how often did you have a drink containing alcohol: monthly or less Smoking status: Former smoker Non-prescribed substance use: denies use 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 Highest level of school completed/degree received: high school graduate Meds Home Medications and Allergies Home Medications ?Medication ?Instructions ?Recorded ?Confirmed ?Type ascorbic acid (vitamin C) 500 mg 500 mg PO BID 05/06/23 10/04/24 History tablet aspirin 325 mg tablet 325 mg PO DAILY 05/06/23 10/08/24 History ferrous sulfate 325 mg (65 mg 325 mg PO DAILY 05/06/23 10/08/24 History iron) tablet hydroxyzine pamoate 25 mg capsule 25 mg PO TID 05/06/23 10/08/24 History lidocaine 5 % topical kit 1 applic topical DAILY 05/06/23 10/08/24 History promethazine 25 mg tablet 25 mg PO Q12H PRN nausea and 05/06/23 10/08/24 History vomiting pyridoxine (vitamin B6) 100 mg 100 mg PO BID 05/06/23 10/08/24 History tablet vitamin B complex (B 1 tab PO DAILY 05/06/23 10/08/24 History Complex-Vitamin B12 tablet) amlodipine 5 mg-olmesartan 20 mg 1 tab PO DAILY 10/04/24 10/08/24 History tablet meloxicam 15 mg tablet 15 mg PO DAILY 10/04/24 10/08/24 History omeprazole 20 mg capsule,delayed 20 mg PO DAILY 10/04/24 10/08/24 History release phentermine 37.5 mg tablet 37.5 mg PO DAILY 10/04/24 10/04/24 History tizanidine 4 mg capsule 4 mg PO BID 10/04/24 10/08/24 History naloxone 4 mg/actuation nasal 4 mg intranasal Q2M PRN opioid 10/17/24 Rx spray (Narcan) overdose #2 ea oxycodone-acetaminophen 5 mg-325 1 tab PO QID PRN pain #120 tabs 07/11/25 Rx mg tablet (Percocet) oxycodone-acetaminophen 5 mg-325 1 tab PO QID PRN pain #120 tabs 08/15/25 Rx mg tablet (Percocet) oxycodone-acetaminophen 5 mg-325 1 tab PO QID PRN pain #120 tabs 09/13/25 Rx mg tablet (Percocet) dulaglutide 4.5 mg/0.5 mL 4.5 mg subcut QWEEK 10/10/25 10/10/25 History subcutaneous pen injector (Trulicity) oxycodone-acetaminophen 5 mg-325 1 tab PO QID PRN pain #120 tabs 10/10/25 Rx mg tablet (Percocet) phentermine 37.5 mg tablet 37.5 mg PO DAILY 10/10/25 10/10/25 History (Adipex-P) Allergies Allergy/AdvReac Type Severity Reaction Status Date / Time naproxen (From Naprosyn) Allergy Mild Hives Verified 10/08/24 11:04 scallops Allergy edema Verified 10/08/24 11:04 ondansetron (From Zofran) AdvReac Intermediate edema Verified 10/08/24 11:04 cyclobenzaprine (From AdvReac Mild Vomiting Verified 10/08/24 11:04 Flexeril) Exam Constitutional Documenting provider has reviewed patient's vital signs: yes Common normals: no apparent distress, oriented x3 and alert General appearance: cooperative [facility] Common normals: normocephalic, hearing grossly normal bilaterally and moist oral mucous membranes Head and scalp: normocephalic Eye Common normals: PERRL Pupil: PERRL Neck & C-Spine Common normals: full ROM General: normal visual inspection Chest Common normals: inspection of chest normal Respiratory Common normals: normal respiratory effort, no retractions and no use of accessory muscles Back & Pelvis Lumbar spine/lower back: pain with ROM, lumbar spinal tenderness and straight leg raise positive left Other: decreased sensation left L4,5,S1 strength 4/5 in LLE and 5/5 in RLE Extremity Other: significant edema to LLE with limited ROM and diffuse pain Neuro Common normals: oriented x3 Sensorium/orientation: alert Psych Common normals: mental status grossly normal, thought process normal, cooperative, affect normal, speech normal and activity/motor behavior normal Speech: normal speech Thought process: normal thought process Results Additional Findings Additional findings: If on a controlled substance or opioids, I have checked an [place] report on this patient and there are no aberrancies noted in the prescribing history.??If on a controlled substance or opioid a drug screen was completed and reviewed within the last year, and if there has not been a drug screen completed we ordered one today to monitor higher risk, state monitored pain medication use. As part of providing excellent, safe, comprehensive care, the following was completed at our patient's visit: 1. A medication reconciliation and review to ensure accurate knowledge of current/active medications, including asking our patients to inform us about any hcdf-bzv-sbtnswt medications or herbal remedies/nutritional supplements/alternative remedies. 2. A review to specifically ensure our patients have had annual screening for screening for depression, screening for tobacco use, and screening for unhealthy alcohol use. For concerning screenings had a discussion with the patient, provided patient education, and recommended follow-up with primary care provider when appropriate. If patient noted with a risk of falling, they received education on strength, gait, and balance training to prevent future risk of falling. Portions of this note may have been carried over from the previous visit and updated as appropriate. Please note this office utilizes paper charting in addition to the electronic medical record. A list of current medications, vitals, and PMH is available there as the clinical staff outside of myself do not have access to [facility] [employer] charting during the clinic day operations. As part of providing quality comprehensive care the current medications, vitals, and PMH were reviewed in the paper chart. Assessment and Plan Assessment and Plan (1) Complex regional pain syndrome type 1 affecting left lower leg: (2) Lumbar radiculopathy: (3) Lumbar stenosis with neurogenic claudication: (4) Chronic prescription opiate use: Plan The patient has had over 3 months of moderate to severe left foot, as well as low back and LE pain with functional impairment and inadequate response to conservative care including NSAIDS (unless there are contraindication such as concurrent blood thinners), multiple oral or topical pain medications, and home exercise program/physical therapy.? Patient has completed >6 weeks of guided home exercise program and/or formal physical therapy program without relief of their symptoms.?? update lumbar xray with flexion to assess stability consider updating lumbar mri without contrast to assess low back and LLE pain to evaluate lumbar radiculopathy and lumbar stenosis with NC in consideration of interventional therapy vs ns consult continue HEP as tolerated continue current medication regimen, notes moderate pain relief for 3 hours without side effects continue f/u with heme/onc and rheumatology as planned f/u TBD based on updatied imaging
== END 2025-10-10 10:13 | disposition home or self-care (01) ==
PROVIDERS: Visit Provider Nurse Practitioner
DX: G90.522 Complex regional pain syndrome I of left lower limb (principal); M54.16 Radiculopathy, lumbar region; M48.062 Spinal stenosis, lumbar region with neurogenic claudication; Z79.891 Long term (current) use of opiate analgesic
CPT/HCPCS: G0463